=== PATIENT | male | born 1940 | race Caucasian/White ===

== ENCOUNTER 2018-05-31 17:11 | Emergency (ER) | payer MEDICARE, OTHER ==
[~2018-05-31] VITALS: Ht 177.8 cm; Wt 104.3 kg
[~2018-05-31 17:11] MED LIST: AMIO200T4 PO; AMLO5TAB4 PO; ASPI-482 PO; ATOR40TA59 PO; CARV12.5 PO; FERR325T14 PO; FURO-68 PO; FURO40TA4 PO; HYDR-2762 PO; HYDR-971 PO; Hydrocodone/Acetaminophen PO; INSU100I13 SQ; INSU100I17 SQ; INSU100I27 SQ; LEVO50TA5 PO; LISI10TA PO; LISI10TA2 PO; LOPE2TAB27 PO; METO5TAB4 PO; ONDA4TAB7 PO; POTA10TA12 PO; SERT100T8 PO; SIMV10TA3 PO; TAMS0.4C2 PO; WARF-31 PO; WARF7.5T45 PO
[2018-05-31 17:54] LABS: BASO # 0.1 x10^3/uL (0.0-0.2); BASO % 1 % (0-3); EOS # 0.2 x10^3/uL (0.0-0.7); EOS % 2 % (0-3); HEMATOCRIT 27.2 % (39.0-53.0); HEMOGLOBIN 9.2 g/dL (13.0-17.5); LYMPH # 0.9 x10^3/uL (1.0-4.8); LYMPH % 8 % (24-48); MEAN CORPUSCULAR HEMOGLOBIN 32 pg (25-35); MEAN CORPUSCULAR HGB CONC 34 g/dL (31-37); MEAN CORPUSCULAR VOLUME 94 fL (79-100); MONO % 9 % (0-9); NEUT # 9.1 x10^3uL (1.8-7.7); NEUT % 81 % (31-73); PLATELET COUNT 140 x10^3/uL (140-400); RED BLOOD COUNT 2.89 x10^6/uL (4.30-5.70); WHITE BLOOD COUNT 11.3 x10^3/uL (4.0-11.0)
--- NOTE | 2018-05-31 17:54 | PHYS DOC ---
Past Medical History Past Medical History: Cancer, Diabetes-Type II, Hypertension Additional Past Medical Histor: SKIN CANCER Past Surgical History: Coronary Bypass Surgery, Pacemaker Alcohol Use: Occasionally Drug Use: None Adult General Chief Complaint Chief Complaint: POST-OP PROBLEM HPI HPI Patient is a 77 year old male with history of hypertension, diabetes, CAD, on Coumadin for Afib, who presents today complaining of gum bleeding. Patient states he had 3 teeth extracted yesterday by a dentist, he states he was given Coumadin last night, he states he has been bleeding since yesterday evening. He resides in a long-term. PCP Dr. Talley Review of Systems Review of Systems Constitutional: Denies fever or chills [] Eyes: Denies change in visual acuity, redness, or eye pain [] HENT: Reports gum bleeding. Denies nasal congestion or sore throat [] Respiratory: Denies cough or shortness of breath [] Cardiovascular: No additional information not addressed in HPI [] GI: Denies abdominal pain, nausea, vomiting, bloody stools or diarrhea [] : Denies dysuria or hematuria [] Musculoskeletal: Denies back pain or joint pain [] Integument: Denies rash or skin lesions [] Neurologic: Denies headache, focal weakness or sensory changes [] All other systems were reviewed and found to be within normal limits, except as documented in this note. Current Medications Current Medications Current Medications Medications (Trade) Dose Ordered Sig/Adithya Start Time Stop Time Status Last Admin Dose Admin Gelatin (Gelfoam Size 12-7mm) 1 each 1X ONCE 05/31/18 19:30 05/31/18 19:31 DC 05/31/18 19:30 1 EACH Gelatin (Gelfoam Size 100) 1 each 1X ONCE 05/31/18 20:30 05/31/18 20:31 DC 05/31/18 20:41 1 EACH Tranexamic Acid (Cyklokapron) 1,000 mg 1X ONCE 05/31/18 18:00 05/31/18 18:01 DC 05/31/18 17:58 1,000 MG Allergies Allergies Allergies Coded Allergies Type Severity Reaction Last Updated Verified bumetanide Allergy Intermediate 05/31/18 Yes cephalexin Allergy Intermediate 06/19/15 Yes metformin Allergy Intermediate 05/31/18 Yes Physical Exam Physical Exam Constitutional: Well developed, well nourished, no acute distress, non-toxic appearance. [] HENT: Normocephalic, atraumatic, bilateral external ears normal, oropharynx moist, no oral exudates, nose normal. Tooth #8 is missing and bleeding, approximately tooth #22 and 23 are missing, the gum is bleeding around this area. Eyes: PERRLA, EOMI, conjunctiva normal, no discharge. [] Neck: Normal range of motion, no tenderness, supple, no stridor. [] Cardiovascular:Paced rhythm, no murmur [] Lungs & Thorax: Bilateral breath sounds clear to auscultation [] Abdomen: Bowel sounds normal, soft, no tenderness, no masses, no pulsatile masses. [] Skin: Warm, dry, no erythema, no rash. [] Back: No tenderness, no CVA tenderness. [] Extremities: No tenderness, no cyanosis, no clubbing, ROM intact, no edema. [] Neurologic: Alert and oriented X 3, normal motor function, normal sensory function, no focal deficits noted. [] Psychologic: Affect normal, judgement normal, mood normal. [] Current Patient Data Vital Signs Vital Signs Date Time Temp Pulse Resp B/P (MAP) Pulse Ox O2 Delivery O2 Flow Rate FiO2 05/31/18 21:02 77 16 134/63 (86) 100 05/31/18 17:11 99.0 Room Air 99.0 Lab Values Laboratory Tests Test 05/31/18 17:43 White Blood Count 11.3 x10^3/uL (4.0-11.0) H Red Blood Count 2.89 x10^6/uL (4.30-5.70) L Hemoglobin 9.2 g/dL (13.0-17.5) L Hematocrit 27.2 % (39.0-53.0) L Mean Corpuscular Volume 94 fL (79-100) Mean Corpuscular Hemoglobin 32 pg (25-35) Mean Corpuscular Hemoglobin Concent 34 g/dL (31-37) Red Cell Distribution Width 14.0 % (11.5-14.5) Platelet Count 140 x10^3/uL (140-400) Neutrophils (%) (Auto) 81 % (31-73) H Lymphocytes (%) (Auto) 8 % (24-48) L Monocytes (%) (Auto) 9 % (0-9) Eosinophils (%) (Auto) 2 % (0-3) Basophils (%) (Auto) 1 % (0-3) Neutrophils # (Auto) 9.1 x10^3uL (1.8-7.7) H Lymphocytes # (Auto) 0.9 x10^3/uL (1.0-4.8) L Monocytes # (Auto) 1.0 x10^3/uL (0.0-1.1) Eosinophils # (Auto) 0.2 x10^3/uL (0.0-0.7) Basophils # (Auto) 0.1 x10^3/uL (0.0-0.2) Prothrombin Time 26.1 SEC (11.7-14.0) H Prothrombin Time INR 2.5 (0.8-1.1) H PTT 47 SEC (24-38) H Laboratory Tests 05/31/18 17:43 EKG EKG [] Radiology/Procedures Radiology/Procedures [] Course & Med Decision Making Course & Med Decision Making Pertinent Labs and Imaging studies reviewed. (See chart for details) This is a 77-year-old male patient presenting to the ED today with gum bleeding after teeth extraction. He had his teeth extracted yesterday one on the left upper gum and 2 on the left lower gum, both actively bleeding. He is on Coumadin and was given a dose yesterday evening. Tranexamic acid was applied on a gauze and placed to the source of on the gums. This did not stop the bleeding well because it was difficult to align the bleeding area with the gauze. Gel foam was bend to in shape with the bleeding source and pressure applied. Bleeding stopped after 30 minutes. INR 2.5, hemoglobin 9.2 hematocrit 27.2, this is around patient's baseline. Vitals on arrival to the ED temperature 99.0 heart rate 73 respiration 18 on room air blood pressure 112/54 O2 sats were 91% on arrival to the ED, after being in the ED for a few minutes O2 sats went up to 100% on room air. Patient will be discharged to the long-term. Recommended stopping Coumadin for 2 days. Dragon Disclaimer Dragon Disclaimer This electronic medical record was generated, in whole or in part, using a voice recognition dictation system. Departure Departure Impression: Primary Impression: Surgical wound hemorrhage after dental procedure Disposition: 03 TRANSFER SNF Condition: STABLE Referrals: KAREN TALLEY MD (PCP) Follow-up with your dentist as soon as you can Patient Instructions: Dental Extraction, Care After Additional Instructions: You were seen for bleeding gums after tooth extraction. We highly recommend you don't take Coumadin for 2 days. Follow-up with your dentist in the course of this week. Come back to the ED at any point symptoms worsen. CRISTELA ELKINS APRN May 31, 2018 17:54
[2018-05-31] MEDS ORDERED: TRANEXAMIC ACID 1,000 MG/10 ML VIAL. TOP ONE (18:00)
[2018-05-31 18:03] LABS: PROTHROMBIN TIME PATIENT 26.1 SEC (11.7-14.0)
[2018-05-31] MEDS ORDERED: GELATIN SPONGE SIZE 12-7MM SPONGE. TP ONE (19:30)
[2018-05-31] MEDS ORDERED: GELATIN SPONGE SIZE 100. TP ONE (20:30)
[2018-05-31 23:07] VITALS: BP 126/60
== END 2018-05-31 23:34 ==
LOC: ER 17:11
DX: K91.840 Postprocedural hemorrhage of a digestive system organ or structure following a digestive system procedure (principal); E11.9 Type 2 diabetes mellitus without complications; I10 Essential (primary) hypertension; Z95.1 Presence of aortocoronary bypass graft; Z95.0 Presence of cardiac pacemaker; Z88.1 Allergy status to other antibiotic agents; Z88.8 Allergy status to other drugs, medicaments and biological substances
CPT/HCPCS: 36415; 85025; 85610; 85730; 99285

== ENCOUNTER 2019-01-20 05:24 | Emergency (ER) | payer MEDICARE, OTHER ==
[~2019-01-20] VITALS: Ht 152.4 cm; Wt 100.7 kg
[~2019-01-20 05:24] MED LIST changes: -HYDR-2762 PO; +HYDR-2765 PO; +HYDR-3164 PO; -HYDR-971 PO
[2019-01-20 05:58] LABS: BASO # 0.1 x10^3/uL (0.0-0.2); BASO % 1 % (0-3); EOS # 0.3 x10^3/uL (0.0-0.7); EOS % 3 % (0-3); HEMOGLOBIN 8.5 g/dL (13.0-17.5); LYMPH % 11 % (24-48); MEAN CORPUSCULAR HEMOGLOBIN 30 pg (25-35); MEAN CORPUSCULAR HGB CONC 34 g/dL (31-37); MEAN CORPUSCULAR VOLUME 89 fL (79-100); MONO # 0.7 x10^3/uL (0.0-1.1); MONO % 9 % (0-9); NEUT # 6.5 x10^3uL (1.8-7.7); NEUT % 76 % (31-73); PLATELET COUNT 145 x10^3/uL (140-400); RED CELL DISTRIBUTION WIDTH 15.3 % (11.5-14.5); WHITE BLOOD COUNT 8.5 x10^3/uL (4.0-11.0)
[2019-01-20] MEDS ORDERED: SILVER NITRATE STICK TP ONE (06:02)
[2019-01-20 06:38] LABS: PROTHROMBIN TIME PATIENT 30.6 SEC (11.7-14.0)
--- NOTE | 2019-01-20 07:00 | PHYS DOC ---
Past Medical History Past Medical History: A-Fib, Cancer, Diabetes-Type II, Hypertension, Prostatitis Additional Past Medical Histor: SKIN CANCER Past Surgical History: Coronary Bypass Surgery, Pacemaker, Other Additional Past Surgical Histo: TOOTH EXTRACTION Alcohol Use: Occasionally Drug Use: None Adult General Chief Complaint Chief Complaint: NOSEBLEED HPI HPI Patient is a 78 year old male jail patient with history of A. fib presents with persistent nosebleed of left nares starting 3 hours prior to ED arrival and resolving just prior to EMS arrival. Patient denies dizziness lightheadedness, or trauma to region. Patient is unsure of most recent INR value but is compliant with treatment. Denies current nosebleeds. No other acute symptoms or complaints [] Review of Systems Review of Systems Review symptoms as per history of present illness. All other systems were reviewed and found to be within normal limits, except as documented in this note. Current Medications Current Medications Current Medications Medications (Trade) Dose Ordered Sig/Adithya Start Time Stop Time Status Last Admin Dose Admin Silver Nitrate/ Potassium Nitrate 1 each STK-MED ONCE 01/20/19 06:02 01/20/19 06:03 DC Allergies Allergies Allergies Coded Allergies Type Severity Reaction Last Updated Verified bumetanide Allergy Intermediate 05/31/18 Yes cephalexin Allergy Intermediate 06/19/15 Yes metformin Allergy Intermediate 05/31/18 Yes Physical Exam Physical Exam Constitutional: Well developed, well nourished, no acute distress, non-toxic jean-pierre earance. [] HENT: Normocephalic, atraumatic, bilateral external ears normal, oropharynx moist, no oral exudates, nose, dried blood in Left nares, no active bleeding, abrasion over middle ant nasal septum. [] Eyes: PERRLA, EOMI, conjunctiva normal, no discharge. [] Neck: Normal range of motion, no tenderness, supple, no stridor. [] Cardiovascular:Heart rate regular rhythm, no murmur [] Lungs & Thorax: Bilateral breath sounds clear to auscultation [] Neurologic: Alert and oriented X 1, normal motor function, normal sensory function, no focal deficits noted. [] Psychologic: Affect normal, judgement normal, mood normal. [] Current Patient Data Vital Signs Vital Signs Date Time Temp Pulse Resp B/P (MAP) Pulse Ox O2 Delivery O2 Flow Rate FiO2 01/20/19 05:30 98.1 78 18 145/63 (90) 93 Room Air 98.1 Lab Values Laboratory Tests Test 01/20/19 05:50 01/20/19 06:25 White Blood Count 8.5 x10^3/uL (4.0-11.0) Red Blood Count 2.80 x10^6/uL (4.30-5.70) L Hemoglobin 8.5 g/dL (13.0-17.5) L Hematocrit 25.0 % (39.0-53.0) L Mean Corpuscular Volume 89 fL (79-100) Mean Corpuscular Hemoglobin 30 pg (25-35) Mean Corpuscular Hemoglobin Concent 34 g/dL (31-37) Red Cell Distribution Width 15.3 % (11.5-14.5) H Platelet Count 145 x10^3/uL (140-400) Neutrophils (%) (Auto) 76 % (31-73) H Lymphocytes (%) (Auto) 11 % (24-48) L Monocytes (%) (Auto) 9 % (0-9) Eosinophils (%) (Auto) 3 % (0-3) Basophils (%) (Auto) 1 % (0-3) Neutrophils # (Auto) 6.5 x10^3uL (1.8-7.7) Lymphocytes # (Auto) 1.0 x10^3/uL (1.0-4.8) Monocytes # (Auto) 0.7 x10^3/uL (0.0-1.1) Eosinophils # (Auto) 0.3 x10^3/uL (0.0-0.7) Basophils # (Auto) 0.1 x10^3/uL (0.0-0.2) Prothrombin Time 30.6 SEC (11.7-14.0) H Prothrombin Time INR 2.9 (0.8-1.1) H Laboratory Tests 01/20/19 05:50 EKG EKG [] Radiology/Procedures Radiology/Procedures [] Course & Med Decision Making Course & Med Decision Making Pertinent Labs and Imaging studies reviewed. (See chart for details) [Basic labs reviewed, abrasions cauterized with Silver Nitrate to decrease risk of rebleed.] Dragon Disclaimer Dragon Disclaimer This electronic medical record was generated, in whole or in part, using a voice recognition dictation system. Departure Departure Impression: Primary Impression: Nosebleed Disposition: 01 HOME, SELF-CARE Condition: GOOD Referrals: KAREN TALLEY MD (PCP) Patient Instructions: Nosebleed, [id number] Additional Instructions: Please use Afrin nasal nostril twice daily for the next 5 days. If nosebleed recurs, hold pressure for 20 minutes and return to the ED if bleeding continues after releasing pressure. Scripts Oxymetazoline Hcl (AFRIN) 30 Ml Lindsay 30 ML NS BID for nosebleed for 5 Days, #1 SPRAY Prov: REMY HENDRICKS DO 01/20/19 REMY HENDRICKS DO January 20, 2019 07:00
[2019-01-20] MEDS ORDERED: OXYM30SP NS (07:06)
[2019-01-20 08:30] VITALS: BP 146/65
== END 2019-01-20 08:45 | disposition home or self-care (01) ==
LOC: ER 05:24
DX: R04.0 Epistaxis (principal); I10 Essential (primary) hypertension; E11.9 Type 2 diabetes mellitus without complications; I48.91 Unspecified atrial fibrillation; Z95.1 Presence of aortocoronary bypass graft; Z95.0 Presence of cardiac pacemaker; Z88.1 Allergy status to other antibiotic agents; Z88.8 Allergy status to other drugs, medicaments and biological substances
CPT/HCPCS: 30901; 36415; 85025; 85610; 99284-25

== ENCOUNTER 2019-05-15 22:49 | Inpatient (IN) | payer MEDICARE, MEDICAID ==
[~2019-05-15] VITALS: Ht 154.9 cm; Wt 89.8 kg
[2019-05-15] MEDS: IV NORMAL SALINE 1000ML BAG 1,000 ML IV ONE (00:18)
[~2019-05-15 22:49] MED LIST changes: +OXYM30SP NS
[2019-05-15] MEDS ORDERED: VANCOMYCIN PER PHARMACY MC PRN (23:00)
[2019-05-15 23:30] LABS: BASO # 0.1 x10^3/uL (0.0-0.2); BASO % 1 % (0-3); EOS % 0 % (0-3); HEMATOCRIT 25.2 % (39.0-53.0); HEMOGLOBIN 7.9 g/dL (13.0-17.5); LYMPH # 0.3 x10^3/uL (1.0-4.8); LYMPH % 1 % (24-48); MEAN CORPUSCULAR HEMOGLOBIN 28 pg (25-35); MEAN CORPUSCULAR HGB CONC 32 g/dL (31-37); MEAN CORPUSCULAR VOLUME 87 fL (79-100); MONO # 1.1 x10^3/uL (0.0-1.1); MONO % 5 % (0-9); NEUT # 22.7 x10^3/uL (1.8-7.7); NEUT % 94 % (31-73); PLATELET COUNT 196 x10^3/uL (140-400); RED BLOOD COUNT 2.88 x10^6/uL (4.30-5.70); RED CELL DISTRIBUTION WIDTH 22.2 % (11.5-14.5); WHITE BLOOD COUNT 24.3 x10^3/uL (4.0-11.0)
[2019-05-15] MEDS ORDERED: IV NORMAL SALINE 1000ML BAG 1,000 ML IV ONE ×2 (23:30)
[2019-05-15 23:40] LABS: ANION GAP 5 (6-14); BLOOD UREA NITROGEN 81 mg/dL (8-26); BUN/CREATININE RATIO 23 (6-20); CALCIUM 8.8 mg/dL (8.5-10.1); CARBON DIOXIDE 32 mmol/L (21-32); CHLORIDE 96 mmol/L (98-107); CREATININE 3.6 mg/dL (0.7-1.3); GFR 16.5; GLUCOSE 134 mg/dL (70-99); POTASSIUM 5.1 mmol/L (3.5-5.1); SODIUM 133 mmol/L (136-145)
[2019-05-15 23:41] LABS: PROTHROMBIN TIME PATIENT 27.4 SEC (11.7-14.0)
--- NOTE | 2019-05-15 23:48 | RAD ---
AP chest x-ray HISTORY: Sepsis and cough. COMPARISON: Chest x-ray March 24, 2016. FINDINGS: Implanted cardiac device again demonstrated. Tiny megaly stable. Prior coronary bypass again demonstrated. No pneumothorax. Pulmonary vascular congestion and mild pulmonary interstitial edema has developed. Opacity at the left lower lobe screening the diaphragm, a mild/moderate left pleural effusion cannot be excluded along the diaphragm. IMPRESSION: Congestive heart failure with cardiomegaly, pulmonary vascular congestion and pulmonary interstitial edema. Dense opacity left lower lobe could represent asymmetric alveolar edema or pneumonia. A left pleural effusion is not excluded. Electronically signed by: Caesar Peres MD (05/15/2019 11:45 PM) [id number]
[2019-05-15 23:51] LABS: % BANDS 6 % (0-9); % EOS 2 % (0-5); % LYMPHS 1 % (24-48); % MONOS 2 % (0-10); % SEGS 89 % (35-66); PLT ESTIMATE ADEQUATE (ADEQUATE)
[2019-05-15 23:53] LABS: ANISOCYTOSIS MOD; HYPOCHROMIA SLIGHT
[2019-05-15 23:54] LABS: OVALOCYTES FEW; SCHISTOCYTES OCC; TOXIC GRANULATION SLIGHT
[2019-05-15 23:55] LABS: ALBUMIN 2.5 g/dL (3.4-5.0); ALBUMIN/GLOBULIN RATIO 0.6 (1.0-1.7); ALK PHOS 113 U/L (46-116); AST (SGOT) 14 U/L (15-37); DIRECT BILIRUBIN 0.4 mg/dL (0.0-0.2); TOTAL BILIRUBIN 0.8 mg/dL (0.2-1.0); TOTAL PROTEIN 6.7 g/dL (6.4-8.2)
[2019-05-16] VITALS (31 sets, daily range): BP systolic 66–115; BP diastolic 36–57
[2019-05-16] MEDS ORDERED: VANCOMYCIN 2 GM in IV NORMAL SALINE 500ML BAG 500 ML IV ONE ×2
[2019-05-16 00:10] LABS: ALT (SGPT) < 6 U/L (16-63)
[2019-05-16] MEDS: IV NORMAL SALINE 1000ML BAG 1,000 ML IV ONE (00:17)
--- NOTE | 2019-05-16 00:21 | RAD ---
CT head without contrast PQRS statement: CT scans at this facility use dose reduction including either automated exposure control, iterative reconstructions, and /or weight based radiation dosing via mA and kV modification when appropriate to reduce radiation dose to as low as reasonably achievable. HISTORY: Altered mental status. TECHNIQUE: Noncontrast CT imaging skull base to vertex was acquired. FINDINGS: 2 cm linear age-indeterminate hypodense ischemic infarct posterior right cerebellum. Generalized mild brain atrophy. Cerebral periventricular white matter hypoattenuation presumably representing changes of chronic microvascular ischemic disease. No intracranial hemorrhage, mass or hydrocephalus. Fluid within the left maxillary sinus. Mastoids, orbits and bones are unremarkable. IMPRESSION: 1. 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 2. Left maxillary sinus fluid likely sinusitis. Electronically signed by: Caesar Peres MD (05/16/2019 12:19 AM) [id number]
--- NOTE | 2019-05-16 00:36 | RAD ---
AP chest x-ray COMPARISON: Chest x-ray May 15, 2019. HISTORY: Central line placement. FINDINGS: Right jugular central venous catheter has been placed the tip is obscured by the density of overlying cardiac pacemaker electrodes although appears to extend to the atrial caval junction or distal SVC, it is not apparent in the right atrium. Cardiomegaly stable. Coronary bypass again demonstrated. Pulmonary vascular congestion and interstitial edema is stable. Left lower lobe consolidated infiltrate is stable, and mild left pleural effusion is not excluded. No pneumothorax. IMPRESSION: Cardiomegaly, pulmonary edema and left lower lobe infiltrate is stable. Right jugular central venous catheter has been placed as described above. Electronically signed by: Caesar Peres MD (05/16/2019 12:33 AM) [id number]
--- NOTE | 2019-05-16 00:42 | PHYS DOC ---
Past Medical History Past Medical History: CAD, CHF, Diabetes-Type II, High Cholesterol, Hypertension, Hypothyroid Additional Past Medical Histor: SKIN CANCER Past Surgical History: Coronary Bypass Surgery, Pacemaker, Other Additional Past Surgical Histo: TOOTH EXTRACTION Alcohol Use: None Drug Use: None Adult General Chief Complaint Chief Complaint: ALTERED MENTAL STATUS HPI HPI 78-year-old male presents to emergency department via EMS from nursing facility. Patient is generally history of hypertension, diabetes, bilateral [id number] amputations. Apparently patient has had altered mental status progressive throughout the day and worse this evening and therefore presented to the ER for further evaluation. Unable to obtain history from the patient given his mental status. Patient will arouse to painful stimuli however does not answer questions. Initial evaluation systolic pressure in the 70s. Review of Systems Review of Systems Unable to obtain patient's reviews of systems given his mental status and presentation. Current Medications Current Medications Current Medications Medications (Trade) Dose Ordered Sig/Adithya Start Time Stop Time Status Last Admin Dose Admin Levofloxacin/ Dextrose 150 ml @ 100 mls/hr 1X ONCE 05/15/19 23:30 05/16/19 00:59 DC 05/16/19 00:17 100 MLS/HR Sodium Chloride 1,000 ml @ 1,000 mls/hr 1X ONCE 05/15/19 23:30 05/16/19 00:29 DC 05/16/19 00:17 1,000 MLS/HR Vancomycin HCl (Vanco Per Pharmacy) 1 each PRN DAILY PRN 05/15/19 23:00 Vancomycin HCl 2 gm/Sodium Chloride 500 ml @ 250 mls/hr 1X ONCE 05/16/19 00:00 05/16/19 01:59 05/16/19 00:15 250 MLS/HR Allergies Allergies Allergies Coded Allergies Type Severity Reaction Last Updated Verified bumetanide Allergy Intermediate 05/31/18 Yes cephalexin Allergy Intermediate 06/19/15 Yes metformin Allergy Intermediate 05/31/18 Yes Physical Exam Physical Exam Constitutional: Ill-appearing HENT: Normocephalic, atraumatic, mucous membranes dry Eyes: PERRLA, EOMI, conjunctiva normal, no discharge. [] Cardiovascular: Paced rhythm Lungs & Thorax: Decreased breath sounds left greater than right, crackles appreciated Abdomen: Bowel sounds normal, soft, no tenderness, no masses, no pulsatile masses. [] Skin: Warm, dry, no erythema, no rash. [] Extremities: No edema, bilateral below the knee petitions Neurologic: Altered mental status, patient does not follow commands Current Patient Data Vital Signs Vital Signs Date Time Temp Pulse Resp B/P (MAP) Pulse Ox O2 Delivery O2 Flow Rate FiO2 05/16/19 00:41 68 18 100 05/15/19 23:10 77/36 (50) Nasal Cannula 2.0 Lab Values Laboratory Tests Test 05/15/19 23:10 05/16/19 00:32 05/16/19 00:41 05/16/19 00:48 White Blood Count 24.3 x10^3/uL (4.0-11.0) H Red Blood Count 2.88 x10^6/uL (4.30-5.70) L Hemoglobin 7.9 g/dL (13.0-17.5) L Hematocrit 25.2 % (39.0-53.0) L Mean Corpuscular Volume 87 fL (79-100) Mean Corpuscular Hemoglobin 28 pg (25-35) Mean Corpuscular Hemoglobin Concent 32 g/dL (31-37) Red Cell Distribution Width 22.2 % (11.5-14.5) H Platelet Count 196 x10^3/uL (140-400) Neutrophils (%) (Auto) 94 % (31-73) H Lymphocytes (%) (Auto) 1 % (24-48) L Monocytes (%) (Auto) 5 % (0-9) Eosinophils (%) (Auto) 0 % (0-3) Basophils (%) (Auto) 1 % (0-3) Neutrophils # (Auto) 22.7 x10^3/uL (1.8-7.7) H Lymphocytes # (Auto) 0.3 x10^3/uL (1.0-4.8) L Monocytes # (Auto) 1.1 x10^3/uL (0.0-1.1) Eosinophils # (Auto) 0.0 x10^3/uL (0.0-0.7) Basophils # (Auto) 0.1 x10^3/uL (0.0-0.2) Segmented Neutrophils % 89 % (35-66) H Band Neutrophils % 6 % (0-9) Lymphocytes % 1 % (24-48) L Monocytes % 2 % (0-10) Eosinophils % 2 % (0-5) Toxic Granulation Slight Platelet Estimate Adequate (ADEQUATE) Hypochromasia Slight Anisocytosis Mod Ovalocytes Few Schistocytes Occ Prothrombin Time 27.4 SEC (11.7-14.0) H Prothrombin Time INR 2.6 (0.8-1.1) H Activated Partial Thromboplast Time 44 SEC (24-38) H Sodium Level 133 mmol/L (136-145) L Potassium Level 5.1 mmol/L (3.5-5.1) Chloride Level 96 mmol/L (98-107) L Carbon Dioxide Level 32 mmol/L (21-32) Anion Gap 5 (6-14) L Blood Urea Nitrogen 81 mg/dL (8-26) H Creatinine 3.6 mg/dL (0.7-1.3) H Estimated GFR (Cockcroft-Gault) 16.5 BUN/Creatinine Ratio 23 (6-20) H Glucose Level 134 mg/dL (70-99) H Lactic Acid Level 2.3 mmol/L (0.4-2.0) H Calcium Level 8.8 mg/dL (8.5-10.1) Total Bilirubin 0.8 mg/dL (0.2-1.0) Direct Bilirubin 0.4 mg/dL (0.0-0.2) H Aspartate Amino Transferase (AST) 14 U/L (15-37) L Alanine Aminotransferase (ALT) < 6 U/L (16-63) L Alkaline Phosphatase 113 U/L (46-116) Total Protein 6.7 g/dL (6.4-8.2) Albumin 2.5 g/dL (3.4-5.0) L Albumin/Globulin Ratio 0.6 (1.0-1.7) L Procalcitonin 0.59 ng/mL (0.00-0.10) H Ammonia 15 mcmol/L (11-34) Urine Collection Type Unknown Urine Color Yellow Urine Clarity Cloudy Urine pH 6.5 Urine Specific [place] 1.010 Urine Protein Negative mg/dL (NEG-TRACE) Urine Glucose (UA) Negative mg/dL (NEG) Urine Ketones (Stick) Negative mg/dL (NEG) Urine Blood Negative (NEG) Urine Nitrite Negative (NEG) Urine Bilirubin Negative (NEG) Urine Urobilinogen Dipstick 0.2 mg/dL (0.2 mg/dL) Urine Leukocyte Esterase Negative (NEG) Urine RBC 0 /HPF (0-2) Urine WBC 0 /HPF (0-4) Urine Squamous Epithelial Cells Few /LPF Urine Bacteria 0 /HPF (0-FEW) Urine Hyaline Casts Moderate /HPF Urine Mucus Mod /LPF O2 Saturation 94 % (92-99) Arterial Blood pH 7.41 (7.35-7.45) Arterial Blood pCO2 at Patient Temp 45 mmHg (35-46) Arterial Blood pO2 at Patient Temp 79 mmHg (65-108) Arterial Blood HCO3 28 mmol/L (21-28) Arterial Blood Base Excess 3 mmol/L (-3-3) Oxyhemoglobin 93.1 % Methemoglobin 0.4 % (0.0-1.9) Carbon Monoxide, Quantitative 0.9 % (0.0-1.9) FiO2 32 Laboratory Tests 05/15/19 23:10 Laboratory Tests 05/15/19 23:10 EKG EKG EKG reveals paced rhythm, heart rate 70, right bundle branch block[] Interpretation Time: Interpretation time 00 23 Radiology/Procedures Radiology/Procedures [facility] [address] [place] [address] IMAGING REPORT Signed PATIENT: CORAZON BLANCAS ACCOUNT: [id number] : 1940 LOCATION: ER AGE: 78 SEX: M EXAM STATUS: REG ER ORD. PHYSICIAN: BLADIMIR MATTHEW MD REASON: Sepsis, cough PROCEDURE: PORTABLE CHEST 1V AP chest x-ray HISTORY: Sepsis and cough. COMPARISON: Chest x-ray March 24, 2016. FINDINGS: Implanted cardiac device again demonstrated. Tiny megaly stable. Prior coronary bypass again demonstrated. No pneumothorax. Pulmonary vascular congestion and mild pulmonary interstitial edema has developed. Opacity at the left lower lobe screening the diaphragm, a mild/moderate left pleural effusion cannot be excluded along the diaphragm. IMPRESSION: Congestive heart failure with cardiomegaly, pulmonary vascular congestion and pulmonary interstitial edema. Dense opacity left lower lobe could represent asymmetric alveolar edema or pneumonia. A left pleural effusion is not excluded. Electronically signed by: Judd Peres MD (05/15/2019 11:45 PM) [facility] DICTATED and SIGNED BY: JUDD PERES MD DATE: 05/15/19 2345 [facility] [address] [facility] [place] [address] IMAGING REPORT Signed PATIENT: CORAZON BLANCAS ACCOUNT: [id number] : 1940 LOCATION: ER AGE: 78 SEX: M EXAM STATUS: REG ER ORD. PHYSICIAN: BLADIMIR MATTHEW MD REASON: central line placement PROCEDURE: CHEST AP ONLY AP chest x-ray COMPARISON: Chest x-ray May 15, 2019. HISTORY: Central line placement. FINDINGS: Right jugular central venous catheter has been placed the tip is obscured by the density of overlying cardiac pacemaker electrodes although appears to extend to the atrial caval junction or distal SVC, it is not apparent in the right atrium. Cardiomegaly stable. Coronary bypass again demonstrated. Pulmonary vascular congestion and interstitial edema is stable. Left lower lobe consolidated infiltrate is stable, and mild left pleural effusion is not excluded. No pneumothorax. IMPRESSION: Cardiomegaly, pulmonary edema and left lower lobe infiltrate is stable. Right jugular central venous catheter has been placed as described above. Electronically signed by: Judd Peres MD (05/16/2019 12:33 AM) [facility] DICTATED and SIGNED BY: JUDD PERES MD DATE: 05/16/19 0033 [facility] [address] [facility] [place] [address] IMAGING REPORT Signed PATIENT: CORAZON BLANCAS ACCOUNT: [id number] : 1940 LOCATION: ER AGE: 78 SEX: M EXAM STATUS: REG ER ORD. PHYSICIAN: BLADIMIR MATTHEW MD REASON: altered mental status PROCEDURE: CT HEAD WO CONTRAST CT head without contrast PQRS statement: CT scans at this facility use dose reduction including either automated exposure control, iterative reconstructions, and /or weight based radiation dosing via mA and kV modification when appropriate to reduce radiation dose to as low as reasonably achievable. HISTORY: Altered mental status. TECHNIQUE: Noncontrast CT imaging skull base to vertex was acquired. FINDINGS: 2 cm linear age-indeterminate hypodense ischemic infarct posterior right cerebellum. Generalized mild brain atrophy. Cerebral periventricular white matter hypoattenuation presumably representing changes of chronic microvascular ischemic disease. No intracranial hemorrhage, mass or hydrocephalus. Fluid within the left maxillary sinus. Mastoids, orbits and bones are unremarkable. IMPRESSION: 1. 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 2. Left maxillary sinus fluid likely sinusitis. Electronically signed by: Judd Peres MD (05/16/2019 12:19 AM) [facility] DICTATED and SIGNED BY: JUDD PERES MD DATE: 05/16/19 0019 Course & Med Decision Making Course & Med Decision Making Pertinent Labs and Imaging studies reviewed. (See chart for details) []78-year-old male presents to emergency department via EMS from nursing facility. Patient is generally history of hypertension, diabetes, bilateral hagdd-aie-qzel amputations. Apparently patient has had altered mental status progressive throughout the day and worse this evening and therefore presented to the ER for further evaluation. Unable to obtain history from the patient given his mental status. Patient will arouse to painful stimuli however does not answer questions. Initial evaluation systolic pressure in the 70s. Dragon Disclaimer Dragon Disclaimer This electronic medical record was generated, in whole or in part, using a voice recognition dictation system. Critical Care Time Critical care time was 40 minutes exclusive of procedures. Date and Time of Reassessment Date: May 16, 2019 Time: 01:19 Fluid Challenge Is the fluid challenge complet: Yes IBW Target Volume Used: No BMI > 30: Yes Vital Signs Vital Signs: Vital Signs Date Time Temp Pulse Resp B/P (MAP) Pulse Ox O2 Delivery O2 Flow Rate FiO2 05/16/19 00:41 68 18 100 05/15/19 23:10 77/36 (50) Nasal Cannula 2.0 Temperature Source: Oral Respirations Respiratory Pattern: Normal Cardiovascular Pulse Rhythm: Irregular Heart: No murmurs noted Lung Sounds Breath Sounds: Diminished Capillary Refil Capillary Refill: Lt Hand < 3 seconds Peripheral Pulse Pulse Location: Monitor Pulse Strength: Normal (2+) Pulse Assessment Method: Monitor Integumentary Skin: Dry, Cool Skin Moisture: Dry Skin Turgor: Decreased Skin Color: dry CENTRAL LINE INSERTION: Location: Right IJ Date of Insertion: 05/16/2019 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 Physician 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 the P: Yes If suspected infection: Yes Central Line Indications: Monitor CVP Maximal sterile barriers used: Mask, Sterile gown, Sterile gloves, Large sterile drape, Cap Skin Preperation: (Check all: Chlorhexidine gluconate Was skin prep dry at time of s: Yes Insertion Site: Jugular Antimicrobial catheter used?: No Central Line catheter type: Non-tunneled Departure Departure Impression: Primary Impression: Severe sepsis Additional Impressions: HCAP (healthcare-associated pneumonia) Pulmonary edema Chronic kidney disease, stage 4 (severe) CVA (cerebral vascular accident) Disposition: ADMITTED INPATIENT Admitting Physician: GIRMA Condition: CRITICAL Referrals: FATOUMATA PAREDES MD (PCP) Problem Qualifiers Additional Impressions: Pulmonary edema Chronicity: acute Qualified Codes: J81.0 - Acute pulmonary edema CVA (cerebral vascular accident) CVA mechanism: unspecified Qualified Codes: I63.9 - Cerebral infarction, unspecified BLADIMIR MATTHEW MD May 16, 2019 00:42
[2019-05-16 00:45] LABS: BASE EXCESS COOX 3 mmol/L (-3-3); HCO3 COOX 28 mmol/L (21-28); METHEMOGLOBIN 0.4 % (0.0-1.9); OXYHEMOGLOBIN 93.1 %; PCO2 COOX 45 mmHg (35-46); PO2 COOX 79 mmHg (65-108); SAT O2 COOX 94 % (92-99)
[2019-05-16 00:47] LABS: BILIRUBIN,URINE NEGATIVE (NEG); CLARITY,URINE CLOUDY; COLOR,URINE YELLOW; NITRITE,URINE NEGATIVE (NEG); PH,URINE 6.5; PROTEIN,URINE NEGATIVE (NEG-TRACE); UROBILINOGEN,URINE 0.2 mg/dL (0.2 mg/dL)
[2019-05-16 00:53] LABS: BACTERIA,URINE 0 /HPF (0-FEW); HYALINE CASTS, URINE MODERATE /HPF; RBC,URINE 0 /HPF (0-2); SQUAMOUS EPITHELIAL CELL,UR FEW /LPF; WBC,URINE 0 /HPF (0-4)
[2019-05-16] MEDS ORDERED: ONDANSETRON PF 4 MG/2 ML VIAL. IV PRN (01:45)
--- NOTE | 2019-05-16 02:12 | NUR ---
Pharmacy Vancomycin Dosing Note S:Consulted to monitor and dose vancomycin started 05/16/19. O:CORAZON BLANCAS is a 78 year old M with Sepsis . Height: 5 feet, 1 inches Weight: 90.577932 kg [place] Body Weight: 52.30 Adjusted Body Weight: 67.38 Dosing Weight: Actual Other Antibiotics: LEVOFLOXACIN 750 X1 IN ER LABS: Last BUN: 81 Last Creatinine: 3.6 Creatinine Clearance: 16 mL/min Last WBC: 24.3 Last Procalcitonin: 0.59 Tmax (past 24 hours): Microbiology: I/O: Drug Levels: Last level: on at Last dose given 05/16/19 at 0000 Vancomycin Dosing: Loading Dose: 2000 mg x1 Dosing Weight: Actual Target Trough: 15-20 A: Based on: WT AND CRCL P: 1. Begin Vancomycin 1250 mg IV q48h 2. Follow up Trough level on 05/19/19 at 2330 3. Pharmacy will continue to monitor, follow and adjust therapy as needed. SILKE SIMPSON RPH, 05/16/19211 Signed: 05/16/19 at 211 by SILKE SIMPSON RPH PHA
--- NOTE | 2019-05-16 03:50 | NUR ---
Patient admitted to room 106 from ED via cart and accompanied by ED RN. Per ED RN, patient was unarousble in ED--on admit patient is talking but is disoriented and only intermittently follows command; Patient is alert to self only and denies pain. Attempted to orient patient to ICU routine, room, nursing call light, activity (BR), diet (NPO), Numeric pain scale, need for Garcia catheter placed in ED, side rail policy, and POC--unable to determine patient's understanding/comprehension. Patient unable to answer any admission questions, all information obtained from ED notes or old records; see Admission Interventions and Admission Assessment. Patient is DNR per outside hospital DNR. Patient's BP dropped <90 with a MAP <65, Dr Heck paged. Dr Heck returned page, notified of admission, Vital Signs, +Sepsis screen, initial Lactic Acid 2.3 and repeat 1.3, fluids given in ED, lung sounds and UO. Orders received for 25% Albumin 100CC TRO 1HR, goal SBP>90 and MAP>65. Levophed PRN per protocol, and if SBP not improved after one hour, give 5% Albumin 250 CC TRO 2 hours. See orders, lab, assessment, and output.
[2019-05-16] MEDS ORDERED: NOREPINEPHRIN 8MG/250ML PREMIX 250 ML IV PRN (04:00)
[2019-05-16] MEDS ORDERED: ALBUMIN HUMAN 25% 100 ML IV ONE (04:30)
[2019-05-16] MEDS ORDERED: INFLUENZA VAX SCREEN BY RX. MC ONE (05:00)
[2019-05-16] MEDS ORDERED: ALBUMIN HUMAN 5% 250 ML IV ONE (05:30)
[2019-05-16] MEDS ORDERED: FLUT9.9S NS (06:03)
[2019-05-16] MEDS ORDERED: WARF2TAB PO (06:03)
[2019-05-16] MEDS ORDERED: ACET325T9 PO (06:03)
[2019-05-16] MEDS ORDERED: FERR240T2 PO (06:03)
[2019-05-16] MEDS ORDERED: BISA10SU4 RC (06:03)
[2019-05-16] MEDS ORDERED: CYAN-25 PO (06:03)
[2019-05-16] MEDS ORDERED: DULO30CA2 PO (06:03)
[2019-05-16] MEDS ORDERED: NA P133E2 RC (06:03)
[2019-05-16] MEDS ORDERED: BUSP5TAB PO (06:03)
[2019-05-16] MEDS ORDERED: CHOL500016 PO (06:03)
[2019-05-16] MEDS ORDERED: FEBU80TA2 PO (06:03)
[2019-05-16] MEDS ORDERED: DULO60CA6 PO (06:03)
[2019-05-16] MEDS ORDERED: GABA-585 PO (06:14)
[2019-05-16] MEDS ORDERED: INSU100C4 SQ (06:32)
[2019-05-16] MEDS ORDERED: PRAV20TA2 PO (06:32)
[2019-05-16] MEDS ORDERED: LACT1CAP2 PO (06:32)
[2019-05-16] MEDS ORDERED: POTA20TA82 PO (06:32)
[2019-05-16] MEDS ORDERED: POLY17PO29 PO (06:32)
[2019-05-16] MEDS ORDERED: METO5TAB4 PO (06:32)
[2019-05-16] MEDS ORDERED: LEVO125T5 PO (06:32)
[2019-05-16] MEDS ORDERED: METO2.5T PO (06:32)
[2019-05-16] MEDS ORDERED: NITR0.4T22 SL (06:32)
[2019-05-16] MEDS ORDERED: DEXT38GE2 PO (06:32)
[2019-05-16] MEDS ORDERED: MELA3TAB56 PO (06:32)
[2019-05-16] MEDS ORDERED: INSU100I13 SQ (06:32)
[2019-05-16] MEDS ORDERED: PANT40TA77 PO (06:32)
[2019-05-16] MEDS ORDERED: POTA20TA4 PO (06:32)
[2019-05-16] MEDS ORDERED: METO-239 PO (06:32)
[2019-05-16] MEDS ORDERED: TEMA15CA PO (06:40)
[2019-05-16] MEDS ORDERED: CARB1TAB4 PO (06:40)
[2019-05-16] MEDS ORDERED: SENN-200 PO (06:40)
[2019-05-16] MEDS ORDERED: TRAZ-86 PO (06:40)
[2019-05-16] MEDS ORDERED: TORS20TA2 PO (06:40)
[2019-05-16] MEDS ORDERED: SEVE800T9 PO (06:40)
[2019-05-16] MEDS ORDERED: SIME80TA14 PO (06:40)
[2019-05-16] MEDS ORDERED: TRAM50TA PO (06:40)
--- NOTE | 2019-05-16 11:30 | EKG ---
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
--- NOTE | 2019-05-16 12:48 | NUR ---
SS following for discharge planning. SS received notification that pt is a resident from [facility], ; fax [phone]. SS contacted [facility] to verify pt's previous placement and received confirmation that pt is a LTC resident from there facility and is able to return when medically stable for discharge.
--- NOTE | 2019-05-16 12:52 | PDOC2 ---
CARDIAC CONSULT DATE OF CONSULT Date of Consult DATE: 05/16/19 TIME: 12:49 REASON FOR CONSULT Reason for Consult: Pulmonary edema REFERRING PHYSICIAN Referring Physician: Dr. Barnes SOURCE Source: Chart review, Patient HISTORY OF PRESENT ILLNESS HISTORY OF PRESENT ILLNESS This is a 78 yo male, with extensive cardiac history including hypertension, hyperlipidemia, AFIB, CAD s/p CABG 09', and ICM s/p AICD, who presented from nursing facility secondary to altered mental status. HPI obtain from chart review as patient is unable to contribute information due to mental status. Presently denies any chest pain, shortness of breath, dizziness, diaphoresis, or nausea/vomiting. PAST MEDICAL HISTORY Cardiovascular: AFIB, CAD, CHF, HTN, Hyperlipidemia, Other (atrial tachycardia, PAD ) Heme/Onc: Anemia NOS Psych: Depression Musculoskeletal: Osteoarthritis Rheumatologic: Gout Renal/: Chronic renal insuff Endocrine: Diabetes, Hypothyroidism PAST SURGICAL HISTORY Past Surgical History: Pacemaker (AICD ), CABG, Hernia Repair, Other (AV fistula, bilateral BKA) FAMILY HISTORY Family History: Diabetes, Heart Disease SOCIAL HISTORY Smoke: No ALCOHOL: none Drugs: None Lives: Detention CURRENT MEDICATIONS CURRENT MEDICATIONS Current Medications Medications (Trade) Dose Ordered Sig/Adithya Route PRN Reason Start Time Stop Time Status Last Admin Dose Admin Vancomycin HCl (Vanco Per Pharmacy) 1 each PRN DAILY PRN MC SEE COMMENTS 05/15/19 23:00 05/16/19 02:12 Levofloxacin/ Dextrose 150 ml @ 100 mls/hr 1X ONCE IV 05/15/19 23:30 05/16/19 00:59 DC 05/16/19 00:17 Sodium Chloride 1,000 ml @ 1,000 mls/hr 1X ONCE IV 05/15/19 23:30 05/16/19 00:29 DC 05/16/19 00:17 Sodium Chloride 1,000 ml @ 1,000 mls/hr 1X ONCE IV 05/15/19 23:30 05/16/19 00:29 DC 05/16/19 00:17 Vancomycin HCl 2 gm/Sodium Chloride 500 ml @ 250 mls/hr 1X ONCE IV 05/16/19 00:00 05/16/19 01:59 DC 05/16/19 00:15 Albumin Human 100 ml @ 100 mls/hr 1X ONCE IV 05/16/19 04:30 05/16/19 05:29 DC 05/16/19 04:14 Norepinephrine Bitartrate 250 ml @ 17.031 mls/ hr CONT PRN IV SEE I/O RECORD 05/16/19 04:00 05/16/19 04:21 Albumin Human 250 ml @ 125 mls/hr 1X ONCE IV 05/16/19 05:30 05/16/19 07:29 DC 05/16/19 05:11 ALLERGIES ALLERGIES: Coded Allergies: bumetanide (Verified Allergy, Intermediate, 05/31/18) cephalexin (Verified Allergy, Intermediate, 05/16/19) HAS TOLERATED MERREM AND ZOSYN metformin (Verified Allergy, Intermediate, 05/31/18) ROS Review of System unobtainable PHYSICAL EXAM General: Alert, Cooperative, No acute distress, Other (oriented to person only) Lungs: Other (bibasilar crackles ) Heart: Regular rate, Normal S1, Normal S2, Other (3/6 systolic murmur ) Abdomen: Soft Extremities: Other (bilateral BKA, trace edema ) Neuro: Normal speech, Sensation intact Psych/Mental Status: Other (confused) MUSCULOSKELETAL: Osteoarthritic changes both hands VITALS/I&O VITALS/I&O: Vital Signs Date Time Temp Pulse Resp B/P (MAP) Pulse Ox O2 Delivery O2 Flow Rate FiO2 05/16/19 09:13 68 16 111/53 (72) 100 Nasal Cannula 3.0 05/16/19 08:11 98.9 98.9 I & O 05/15/19 05/15/19 05/16/19 15:00 23:00 07:00 Intake Total 2250 ml Output Total 90 ml Balance 2160 ml LABS Lab: Laboratory Tests Test 05/15/19 23:10 05/16/19 00:32 05/16/19 00:41 05/16/19 00:48 White Blood Count 24.3 x10^3/uL (4.0-11.0) H Red Blood Count 2.88 x10^6/uL (4.30-5.70) L Hemoglobin 7.9 g/dL (13.0-17.5) L Hematocrit 25.2 % (39.0-53.0) L Mean Corpuscular Volume 87 fL (79-100) Mean Corpuscular Hemoglobin 28 pg (25-35) Mean Corpuscular Hemoglobin Concent 32 g/dL (31-37) Red Cell Distribution Width 22.2 % (11.5-14.5) H Platelet Count 196 x10^3/uL (140-400) Neutrophils (%) (Auto) 94 % (31-73) H Lymphocytes (%) (Auto) 1 % (24-48) L Monocytes (%) (Auto) 5 % (0-9) Eosinophils (%) (Auto) 0 % (0-3) Basophils (%) (Auto) 1 % (0-3) Neutrophils # (Auto) 22.7 x10^3/uL (1.8-7.7) H Lymphocytes # (Auto) 0.3 x10^3/uL (1.0-4.8) L Monocytes # (Auto) 1.1 x10^3/uL (0.0-1.1) Eosinophils # (Auto) 0.0 x10^3/uL (0.0-0.7) Basophils # (Auto) 0.1 x10^3/uL (0.0-0.2) Segmented Neutrophils % 89 % (35-66) H Band Neutrophils % 6 % (0-9) Lymphocytes % 1 % (24-48) L Monocytes % 2 % (0-10) Eosinophils % 2 % (0-5) Toxic Granulation Slight Platelet Estimate Adequate (ADEQUATE) Hypochromasia Slight Anisocytosis Mod Ovalocytes Few Schistocytes Occ Prothrombin Time 27.4 SEC (11.7-14.0) H Prothrombin Time INR 2.6 (0.8-1.1) H Activated Partial Thromboplast Time 44 SEC (24-38) H Sodium Level 133 mmol/L (136-145) L Potassium Level 5.1 mmol/L (3.5-5.1) Chloride Level 96 mmol/L (98-107) L Carbon Dioxide Level 32 mmol/L (21-32) Anion Gap 5 (6-14) L Blood Urea Nitrogen 81 mg/dL (8-26) H Creatinine 3.6 mg/dL (0.7-1.3) H Estimated GFR (Cockcroft-Gault) 16.5 BUN/Creatinine Ratio 23 (6-20) H Glucose Level 134 mg/dL (70-99) H Lactic Acid Level 2.3 mmol/L (0.4-2.0) H Calcium Level 8.8 mg/dL (8.5-10.1) Total Bilirubin 0.8 mg/dL (0.2-1.0) Direct Bilirubin 0.4 mg/dL (0.0-0.2) H Aspartate Amino Transferase (AST) 14 U/L (15-37) L Alanine Aminotransferase (ALT) < 6 U/L (16-63) L Alkaline Phosphatase 113 U/L (46-116) Total Protein 6.7 g/dL (6.4-8.2) Albumin 2.5 g/dL (3.4-5.0) L Albumin/Globulin Ratio 0.6 (1.0-1.7) L Procalcitonin 0.59 ng/mL (0.00-0.10) H Ammonia 15 mcmol/L (11-34) Urine Collection Type Unknown Urine Color Yellow Urine Clarity Cloudy Urine pH 6.5 Urine Specific [place] 1.010 Urine Protein Negative mg/dL (NEG-TRACE) Urine Glucose (UA) Negative mg/dL (NEG) Urine Ketones (Stick) Negative mg/dL (NEG) Urine Blood Negative (NEG) Urine Nitrite Negative (NEG) Urine Bilirubin Negative (NEG) Urine Urobilinogen Dipstick 0.2 mg/dL (0.2 mg/dL) Urine Leukocyte Esterase Negative (NEG) Urine RBC 0 /HPF (0-2) Urine WBC 0 /HPF (0-4) Urine Squamous Epithelial Cells Few /LPF Urine Bacteria 0 /HPF (0-FEW) Urine Hyaline Casts Moderate /HPF Urine Mucus Mod /LPF O2 Saturation 94 % (92-99) Arterial Blood pH 7.41 (7.35-7.45) Arterial Blood pCO2 at Patient Temp 45 mmHg (35-46) Arterial Blood pO2 at Patient Temp 79 mmHg (65-108) Arterial Blood HCO3 28 mmol/L (21-28) Arterial Blood Base Excess 3 mmol/L (-3-3) Oxyhemoglobin 93.1 % Methemoglobin 0.4 % (0.0-1.9) Carbon Monoxide, Quantitative 0.9 % (0.0-1.9) FiO2 32 Test 05/16/19 03:05 Lactic Acid Level 1.4 mmol/L (0.4-2.0) Laboratory Tests 05/15/19 23:10 Laboratory Tests 05/15/19 23:10 ECHOCARDIOGRAM ECHOCARDIOGRAM <Conclusion> The left ventricle is normal size. Left ventricle systolic function is moderately decreased. The Ejection Fraction is estimated at 35% on a technically difficult study. There is a device lead in the right ventricle. There is no significant aortic valvular stenosis. Doppler and Color Flow revealed no significant aortic regurgitation. Doppler and Color Flow revealed trace mitral valve regurgitation. Doppler and Color Flow revealed mild tricuspid regurgitation. The pulmonary artery systolic pressure is estimated at 40-45 mmHg. There is no evidence of significant pericardial effusion. DATE: 02/22/14 1447 STRESS TEST STRESS TEST Conclusion 1. Moderate in size and severe in intensity mostly fixed inferoapical and apical defect with abnormal wall motion to suggest previous infarction with small diana- infarct ischemia. 2. Ejection fraction calculated to be 36% with abnormal wall motion as described above on gated SPECT images. 3. Abnormal nuclear imaging scan. 4. Findings consistent with a low to intermediate risk scan. DATE: 02/23/14 1130 HEART CATH HEART CATH - 03/06 angio with 3 VCAD, EF 30% - s/p CABG 03/06 4 VCABG MINOR to LAD, SVG to RCA, seq SVG to diag and OM ASSESSMENT/PLAN ASSESSMENT/PLAN 1. Leukocytosis, lactic acidosis, ? sepsis; hypotensive requiring pressor support 2. Metabolic encephalopathy 3. Acute respiratory failure secondary to acute CHF and poss PNA 4. Acute on chronic combined systolic/diastolic CHF 5. CAD s/p CABG 03/06 with MINOR to LAD, SVG to RCA, seq SVG to diag and OM. Follows with Dr. Ordonez with MAC 6. ICM s/o AICD/CRTD ([employer]); Echo 2013 with LVEF 35% 7 ABBY on CKD; uremic 8. Hypertension; hypotensive 9. Hyperlipidemia 10. Persistent AFIB; chronic anticoagulation with warfarin. vpaced 11. Diabetes, II 12. Anemia of chronic disease 13. Hypothyroidism Recommendations No further IVFs Lasix PRN Pressor support as warranted Echo to assess LV systolic function Warfarin for stroke prevention Secondary prevention as able. REGINA RYAN APRN May 16, 2019 12:52
[2019-05-16] MEDS: PIPERACILLIN/TAZOBACTAM 2.25 GM in IV NORMAL SALINE 50ML 50 ML IV SCH ×2 (13:00→18:00)
--- NOTE | 2019-05-16 13:23 | PDOC2 ---
NEUROLOGY CONSULT Date of Admission Date of Admission DATE: 05/16/19 TIME: 13:17 Reason for Consult Reason for Consult: Left cerebellar stroke Referring Physician Referring Physician: Dr. Barnes Source Source: Chart review, Patient History of Present Illness History of Present Illness The patient is a 78-year-old right-handed male intermediate resident who had altered mental status starting yesterday. He had an abnormal CT of the head as reviewed below, but also had profound hypotension and is being treated for sepsis. He denies any history of stroke, seizure, or head injury. We do not have a good idea of his intellectual baseline as family is not available. Past Medical History Cardiovascular: AFIB (/flutter), CAD, CHF, HTN, Hyperlipidemia GI: Constipation Rheumatologic: Gout Renal/: Chronic renal failure (IV), Benign prostatic enlarg. Endocrine: Diabetes Dermatology: Basal cell Past Surgical History Past Surgical History: Pacemaker (/defibrillator), CABG, Cataract Removal, Hernia Repair (ventral), Tonsillectomy, Other (cardiac cath, bilateral BKA, right foot hammertoe) Family History Family History: No pertinent hx Social History Social History Single, intermediate resident, does not use alcohol or tobacco Current Medications Current Medications Current Medications Vancomycin HCl (Vanco Per Pharmacy) 1 each PRN DAILY PRN MC SEE COMMENTS Last administered on 05/16/19at 02:12; Start 05/15/19 at 23:00 Levofloxacin/ Dextrose 150 ml @ 100 mls/hr 1X ONCE IV Last administered on 05/16/19at 00:17; Start 05/15/19 at 23:30; Stop 05/16/19 at 00:59; Status DC Sodium Chloride 1,000 ml @ 1,000 mls/hr 1X ONCE IV ; Start 05/15/19 at 23:30; Stop 05/16/19 at 00:29; Status DC Sodium Chloride 1,000 ml @ 1,000 mls/hr 1X ONCE IV Last administered on 05/16/19at 00:17; Start 05/15/19 at 23:30; Stop 05/16/19 at 00:29; Status DC Sodium Chloride 1,000 ml @ 1,000 mls/hr 1X ONCE IV Last administered on 05/16/19at 00:17; Start 05/15/19 at 23:30; Stop 05/16/19 at 00:29; Status DC Vancomycin HCl 2 gm/Sodium Chloride 500 ml @ 250 mls/hr 1X ONCE IV Last administered on 05/16/19at 00:15; Start 05/16/19 at 00:00; Stop 05/16/19 at 01:59; Status DC Ondansetron HCl (Zofran) 4 mg PRN Q8HRS PRN IV NAUSEA/VOMITING 1ST CHOICE; Start 05/16/19 at 01:45; Stop 05/17/19 at 01:44 Vancomycin HCl 1.25 gm/Sodium Chloride 250 ml @ 167 mls/hr Q48H IV ; Start 05/18/19 at 00:00 Vancomycin HCl (Vancomycin Trough Level) 1 each 1X ONCE MC ; Start 05/19/19 at 23:30; Stop 05/19/19 at 23:31 Albumin Human 100 ml @ 100 mls/hr 1X ONCE IV Last administered on 05/16/19at 04:14; Start 05/16/19 at 04:30; Stop 05/16/19 at 05:29; Status DC Norepinephrine Bitartrate 250 ml @ 17.031 mls/ hr CONT PRN IV SEE I/O RECORD Last administered on 05/16/19at 04:21; Start 05/16/19 at 04:00 Info (FLU VACCINE SCREEN per RX) 1 each 1X ONCE MC ; Start 05/16/19 at 05:00; Stop 05/16/19 at 05:01; Status UNV Albumin Human 250 ml @ 125 mls/hr 1X ONCE IV Last administered on 05/16/19at 05:11; Start 05/16/19 at 05:30; Stop 05/16/19 at 07:29; Status DC Piperacillin Sod/ Tazobactam Sod 2.25 gm/Sodium Chloride 50 ml @ 100 mls/hr Q6HRS IV ; Start 05/16/19 at 13:00 Active Scripts Active Novolog Flexpen (Insulin Aspart) 300 Units/3 Ml Insuln.pen 8 Units SQ TIDWMEALS Reported Trazodone Hcl 100 Mg Tablet 1 Tab PO QHS Tramadol Hcl 50 Mg Tablet 50 Mg PO Q8HRS Torsemide 20 Mg Tablet 100 Mg PO BID Temazepam 15 Mg Capsule 1 Cap PO QHS Sinemet Cr 25-100 Tablet (Carbidopa/Levodopa) 1 Each Tablet.er 1 Tab PO TID Simethicone 80 Mg Tab.chew 80 Mg PO PRN Q6HRS PRN Senna Plus 8.6-50 mg Tablet (Sennosides/Docusate Sodium) 1 Each Tablet 1 Each PO BID Renvela (Sevelamer Carbonate) 800 Mg Tablet 3 Tab PO TIDAC Protonix (Pantoprazole Sodium) 40 Mg Tablet.dr 40 Mg PO DAILYAC Pravastatin Sodium 20 Mg Tablet 1 Tab PO HS Potassium Chloride 20 Meq Tablet.er 2 Tab PO DAILY Klor-Con M20 (Potassium Chloride) 20 Meq Tab.er.prt 1 Tab PO PRN DAILY PRN Novolog (Insulin Aspart) 100 Unit/1 Ml Cartridge 8 Unit SQ TIDBFRMEAL NITROGLYCERIN SubLingual (Nitroglycerin) 0.4 Mg Tab.subl 1 Tab SL UD PRN Miralax (Polyethylene Glycol 3350) 17 Gm Powd.pack 1 Packet PO BID Metoprolol Succinate ( Xl ) (Metoprolol Succinate) 25 Mg Tab.er.24h 1 Tab PO DAILY Metolazone 5 Mg Tablet 1.5 Tab PO DAILY Metolazone 2.5 Mg Tablet 2.5 Mg PO PRN DAILY PRN Melatonin 3 Mg Tablet 2 Tab PO QHS Levothyroxine Sodium 125 Mcg Tablet 1 Tab PO DAILY Lantus Solostar (Insulin Glargine,Hum.rec.anlog) 100 Unit/1 Ml Insuln.pen 12 Unit SQ QHS Acidophilus (Lactobacillus Acidophilus) 1 Each Capsule 1 Each PO DAILY Glucose Gel (Dextrose) 38 Gm Gel..gram. 38 Gm PO PRN PRN Gabapentin (Gabapentin) 100 Mg Capsule 100 Mg PO TID Flonase Allergy Relief (Fluticasone Propionate) 9.9 Ml [place].susp 2 Sprays NS DAILY Fleet Enema (Na Phos,M-B/Na Phos,Di-Ba) 133 Ml Enema 133 Ml RC PRN PRN Ferrous Gluconate 240 Mg Tablet 240 Mg PO DAILY Uloric (Febuxostat) 80 Mg Tablet 1 Tab PO DAILY Cymbalta (Duloxetine Hcl) 60 Mg Capsule.dr 1 Cap PO HS Cymbalta (Duloxetine Hcl) 30 Mg Capsule.dr 1 Cap PO DAILY Vitamin B-12 (Cyanocobalamin (Vitamin B-12)) 1,000 Mcg Tablet 1 Tab PO DAILY Coumadin (Warfarin Sodium) 2 Mg Tablet 1 Tab PO DAILY Vitamin D3 (Cholecalciferol (Vitamin D3)) 5,000 Unit Tablet 1 Tab PO DAILY Buspirone Hcl 5 Mg Tablet 1 Tab PO BID Bisacodyl 10 Mg Supp.rect 10 Mg RC PRN DAILY PRN Tylenol (Acetaminophen) 325 Mg Tablet 2 Tab PO PRN Q6HRS PRN Sertraline Hcl 100 Mg Tablet 100 Mg PO DAILY Aspir 81 (Aspirin) 81 Mg Tablet. 1 Tab PO DAILY Allergies Allergies: Coded Allergies: bumetanide (Verified Allergy, Intermediate, 05/31/18) cephalexin (Verified Allergy, Intermediate, 05/16/19) HAS TOLERATED MERREM AND ZOSYN metformin (Verified Allergy, Intermediate, 05/31/18) ROS Review of System Negative for fever, chills, weight loss, shortness of breath, chest pain, indigestion, hematochezia, melena, and dysuria. Full 14-point review of systems is negative. Physical Exam Physical Examination General: Well-developed, well-nourished white male in no acute distress HEENT: Normocephalic and�atraumatic. Temporal arteries�pulsatile and nontender.� Neck: Supple without bruit, no meningismus� Musculoskeletal: Stability:�see neurologic. Gait exam:�see neurologic. Tone:�see neurologic.�Strength:�see neurologic.� Neurological: Mental Status:orientation, memory, attention span/concentration, language, fund of knowledge: He knows that he is in a hospital but does not know its name, does not know the date, follows some simple commands. Cranial Nerves:�Pupils equal and reactive to light, extraocular movements are�intact, visual al are full to confrontation. Facial sensation is normal. There is no facial asymmetry. Vestibulo-ocular reflex is intact. Palate elevates and tongue protrudes in midline. All other cranial related problems are negative except as mentioned before.�Reflexes:�2+ and symmetric. Bilateral BKAs. Motor:�4/5 strength with normal tone and bulk. Coordination:�Finger-nose finger, poorly cooperative, but he does touch his nose with each hand without dysmetria. Rapid alternating movements and fine finger movements are intact. Gait:�Not tested. Sensory:�Normal pinprick, vibration, light touch, proprioception.� Vitals VITALS Vital Signs Date Time Temp Pulse Resp B/P (MAP) Pulse Ox O2 Delivery O2 Flow Rate FiO2 05/16/19 09:13 68 16 111/53 (72) 100 Nasal Cannula 3.0 05/16/19 08:11 98.9 98.9 Labs Labs Laboratory Tests Test 05/15/19 23:10 05/16/19 00:32 05/16/19 00:41 05/16/19 00:48 White Blood Count 24.3 x10^3/uL (4.0-11.0) Red Blood Count 2.88 x10^6/uL (4.30-5.70) Hemoglobin 7.9 g/dL (13.0-17.5) Hematocrit 25.2 % (39.0-53.0) Mean Corpuscular Volume 87 fL (79-100) Mean Corpuscular Hemoglobin 28 pg (25-35) Mean Corpuscular Hemoglobin Concent 32 g/dL (31-37) Red Cell Distribution Width 22.2 % (11.5-14.5) Platelet Count 196 x10^3/uL (140-400) Neutrophils (%) (Auto) 94 % (31-73) Lymphocytes (%) (Auto) 1 % (24-48) Monocytes (%) (Auto) 5 % (0-9) Eosinophils (%) (Auto) 0 % (0-3) Basophils (%) (Auto) 1 % (0-3) Neutrophils # (Auto) 22.7 x10^3/uL (1.8-7.7) Lymphocytes # (Auto) 0.3 x10^3/uL (1.0-4.8) Monocytes # (Auto) 1.1 x10^3/uL (0.0-1.1) Eosinophils # (Auto) 0.0 x10^3/uL (0.0-0.7) Basophils # (Auto) 0.1 x10^3/uL (0.0-0.2) Segmented Neutrophils % 89 % (35-66) Band Neutrophils % 6 % (0-9) Lymphocytes % 1 % (24-48) Monocytes % 2 % (0-10) Eosinophils % 2 % (0-5) Toxic Granulation Slight Platelet Estimate Adequate (ADEQUATE) Hypochromasia Slight Anisocytosis Mod Ovalocytes Few Schistocytes Occ Prothrombin Time 27.4 SEC (11.7-14.0) Prothromb Time International Ratio 2.6 (0.8-1.1) Activated Partial Thromboplast Time 44 SEC (24-38) Sodium Level 133 mmol/L (136-145) Potassium Level 5.1 mmol/L (3.5-5.1) Chloride Level 96 mmol/L (98-107) Carbon Dioxide Level 32 mmol/L (21-32) Anion Gap 5 (6-14) Blood Urea Nitrogen 81 mg/dL (8-26) Creatinine 3.6 mg/dL (0.7-1.3) Estimated GFR (Cockcroft-Gault) 16.5 BUN/Creatinine Ratio 23 (6-20) Glucose Level 134 mg/dL (70-99) Lactic Acid Level 2.3 mmol/L (0.4-2.0) Calcium Level 8.8 mg/dL (8.5-10.1) Total Bilirubin 0.8 mg/dL (0.2-1.0) Direct Bilirubin 0.4 mg/dL (0.0-0.2) Aspartate Amino Transf (AST/SGOT) 14 U/L (15-37) Alanine Aminotransferase (ALT/SGPT) < 6 U/L (16-63) Alkaline Phosphatase 113 U/L (46-116) Total Protein 6.7 g/dL (6.4-8.2) Albumin 2.5 g/dL (3.4-5.0) Albumin/Globulin Ratio 0.6 (1.0-1.7) Procalcitonin 0.59 ng/mL (0.00-0.10) Ammonia 15 mcmol/L (11-34) Urine Collection Type Unknown Urine Color Yellow Urine Clarity Cloudy Urine pH 6.5 Urine Specific [place] 1.010 Urine Protein Negative mg/dL (NEG-TRACE) Urine Glucose (UA) Negative mg/dL (NEG) Urine Ketones (Stick) Negative mg/dL (NEG) Urine Blood Negative (NEG) Urine Nitrite Negative (NEG) Urine Bilirubin Negative (NEG) Urine Urobilinogen Dipstick 0.2 mg/dL (0.2 mg/dL) Urine Leukocyte Esterase Negative (NEG) Urine RBC 0 /HPF (0-2) Urine WBC 0 /HPF (0-4) Urine Squamous Epithelial Cells Few /LPF Urine Bacteria 0 /HPF (0-FEW) Urine Hyaline Casts Moderate /HPF Urine Mucus Mod /LPF O2 Saturation 94 % (92-99) Arterial Blood pH 7.41 (7.35-7.45) Arterial Blood pCO2 at Patient Temp 45 mmHg (35-46) Arterial Blood pO2 at Patient Temp 79 mmHg (65-108) Arterial Blood HCO3 28 mmol/L (21-28) Arterial Blood Base Excess 3 mmol/L (-3-3) Oxyhemoglobin 93.1 % Methemoglobin 0.4 % (0.0-1.9) Carbon Monoxide, Quantitative 0.9 % (0.0-1.9) FiO2 32 Test 05/16/19 03:05 Lactic Acid Level 1.4 mmol/L (0.4-2.0) Laboratory Tests Test 05/15/19 23:10 05/16/19 00:32 05/16/19 00:41 05/16/19 00:48 White Blood Count 24.3 x10^3/uL (4.0-11.0) Red Blood Count 2.88 x10^6/uL (4.30-5.70) Hemoglobin 7.9 g/dL (13.0-17.5) Hematocrit 25.2 % (39.0-53.0) Mean Corpuscular Volume 87 fL (79-100) Mean Corpuscular Hemoglobin 28 pg (25-35) Mean Corpuscular Hemoglobin Concent 32 g/dL (31-37) Red Cell Distribution Width 22.2 % (11.5-14.5) Platelet Count 196 x10^3/uL (140-400) Neutrophils (%) (Auto) 94 % (31-73) Lymphocytes (%) (Auto) 1 % (24-48) Monocytes (%) (Auto) 5 % (0-9) Eosinophils (%) (Auto) 0 % (0-3) Basophils (%) (Auto) 1 % (0-3) Neutrophils # (Auto) 22.7 x10^3/uL (1.8-7.7) Lymphocytes # (Auto) 0.3 x10^3/uL (1.0-4.8) Monocytes # (Auto) 1.1 x10^3/uL (0.0-1.1) Eosinophils # (Auto) 0.0 x10^3/uL (0.0-0.7) Basophils # (Auto) 0.1 x10^3/uL (0.0-0.2) Segmented Neutrophils % 89 % (35-66) Band Neutrophils % 6 % (0-9) Lymphocytes % 1 % (24-48) Monocytes % 2 % (0-10) Eosinophils % 2 % (0-5) Toxic Granulation Slight Platelet Estimate Adequate (ADEQUATE) Hypochromasia Slight Anisocytosis Mod Ovalocytes Few Schistocytes Occ Prothrombin Time 27.4 SEC (11.7-14.0) Prothromb Time International Ratio 2.6 (0.8-1.1) Activated Partial Thromboplast Time 44 SEC (24-38) Sodium Level 133 mmol/L (136-145) Potassium Level 5.1 mmol/L (3.5-5.1) Chloride Level 96 mmol/L (98-107) Carbon Dioxide Level 32 mmol/L (21-32) Anion Gap 5 (6-14) Blood Urea Nitrogen 81 mg/dL (8-26) Creatinine 3.6 mg/dL (0.7-1.3) Estimated GFR (Cockcroft-Gault) 16.5 BUN/Creatinine Ratio 23 (6-20) Glucose Level 134 mg/dL (70-99) Lactic Acid Level 2.3 mmol/L (0.4-2.0) Calcium Level 8.8 mg/dL (8.5-10.1) Total Bilirubin 0.8 mg/dL (0.2-1.0) Direct Bilirubin 0.4 mg/dL (0.0-0.2) Aspartate Amino Transf (AST/SGOT) 14 U/L (15-37) Alanine Aminotransferase (ALT/SGPT) < 6 U/L (16-63) Alkaline Phosphatase 113 U/L (46-116) Total Protein 6.7 g/dL (6.4-8.2) Albumin 2.5 g/dL (3.4-5.0) Albumin/Globulin Ratio 0.6 (1.0-1.7) Procalcitonin 0.59 ng/mL (0.00-0.10) Ammonia 15 mcmol/L (11-34) Urine Collection Type Unknown Urine Color Yellow Urine Clarity Cloudy Urine pH 6.5 Urine Specific [place] 1.010 Urine Protein Negative mg/dL (NEG-TRACE) Urine Glucose (UA) Negative mg/dL (NEG) Urine Ketones (Stick) Negative mg/dL (NEG) Urine Blood Negative (NEG) Urine Nitrite Negative (NEG) Urine Bilirubin Negative (NEG) Urine Urobilinogen Dipstick 0.2 mg/dL (0.2 mg/dL) Urine Leukocyte Esterase Negative (NEG) Urine RBC 0 /HPF (0-2) Urine WBC 0 /HPF (0-4) Urine Squamous Epithelial Cells Few /LPF Urine Bacteria 0 /HPF (0-FEW) Urine Hyaline Casts Moderate /HPF Urine Mucus Mod /LPF O2 Saturation 94 % (92-99) Arterial Blood pH 7.41 (7.35-7.45) Arterial Blood pCO2 at Patient Temp 45 mmHg (35-46) Arterial Blood pO2 at Patient Temp 79 mmHg (65-108) Arterial Blood HCO3 28 mmol/L (21-28) Arterial Blood Base Excess 3 mmol/L (-3-3) Oxyhemoglobin 93.1 % Methemoglobin 0.4 % (0.0-1.9) Carbon Monoxide, Quantitative 0.9 % (0.0-1.9) FiO2 32 Test / 03:05 Lactic Acid Level 1.4 mmol/L (0.4-2.0) Images Images CT head without contrast 2 cm linear age-indeterminate hypodense ischemic infarct posterior right cerebellum. Generalized mild brain atrophy. Cerebral periventricular white matter hypoattenuation presumably representing changes of chronic microvascular ischemic disease. No intracranial hemorrhage, mass or hydrocephalus. Fluid within the left maxillary sinus. Mastoids, orbits and bones are unremarkable. IMPRESSION: 1. 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 2. Left maxillary sinus fluid likely sinusitis. Assessment/Plan Assessment/Plan Impression: Metabolic encephalopathy related to sepsis I doubt that the cerebellar infarct is clinically relevant as cerebellar lesions usually do not cause isolated mental status changes and the CT scan would not show acute infarct causing the acute mental status change. Recommendations: Repeat head CT tomorrow, he cannot have an MRI. Treatment of medical problems. Nurse did place a call into the family who have not returned it. I would be glad to talk to them when they are available. Thank you for letting me help the patient's care. STEPHANIE DUKE MD May 16, 2019 13:23
--- NOTE | 2019-05-16 13:54 | HP ---
ADMIT DATE: 05/16/2019 CHIEF COMPLAINT: Mental status change. HISTORY OF PRESENT ILLNESS: The patient is a pleasant 78-year-old male who presents with mental status change. He apparently lives at nursing facility. He is usually a good historian. His mental status change has been occurring for about 12-24 hours. I discussed the case with ER physician. It appears the patient might be septic. He also has acute on chronic systolic and diastolic heart failure. We are going to admit the patient and consult Cardiology, Neurology and Infectious Disease. PAST MEDICAL HISTORY: Hypertension, hyperlipidemia, CHF, CAD, hypothyroidism, skin cancer, cardiac bypass surgery, pacemaker and AICD, tooth extractions. ALLERGIES: CEPHALEXIN, METFORMIN AND BUMEX. FAMILY HISTORY: Coronary artery disease. SOCIAL HISTORY: Does not drink, smoke or take drugs. He is retired, lives [facility]. MEDICATIONS: Reviewed, please refer to the MRAD. REVIEW OF SYSTEMS: Unable to obtain. The patient is too confused. PHYSICAL EXAMINATION: VITALS: Within normal limits and are stable. GENERAL: No apparent distress. Alert and oriented. HEENT: Head is normocephalic, atraumatic, pupils were equally round and reactive to light and accommodation. NECK: Supple, no JVD, no thyromegaly was noted. LUNGS: Clear to auscultation in all lung al without rhonchi or wheezing. HEART: RRR, S1, S2 present. Peripheral pulses intact, no obvious murmurs were noted. ABDOMEN: Soft, nontender. Positive bowel sounds no organomegaly, normal bowel sounds. EXTREMITIES: Without any cyanosis, clubbing, or edema. Pedal pulses intact, Homans sign is negative. NEUROLOGIC: He is twitching. He barely awakens and talks briefly, in fact, I thought he was asleep all time, but he now awakens and tries to talk but he does not know the year or who the president is. PSYCHIATRIC: Normal affect, normal mood. Stable. SKIN: No ulcerations or rashes, good skin turgor, no jaundice. VASCULAR: Good capillary refill, neurovascular bundle appears to be intact. LABORATORY DATA: White count is 24, hemoglobin is 7.9. Electrolytes: Sodium 133, potassium 5.1, chloride 96, bicarbonate 32, BUN 81, creatinine 3.6, glucose is 134, pH is 7.41. CT of the head shows a possible stroke, 2 cm in the right cerebellum. ASSESSMENT AND PLAN: Mental status change with stroke, sepsis, heart failure and possible pneumonia. The patient will be admitted. We will consult Infectious Disease, Cardiology, Neurology and Pulmonary. Home meds. Deep venous thrombosis prophylaxis. Full code. Physical therapy, occupational therapy. Long-term prognosis is guarded. NIKKO YMERS DO DR: LILLIAM/cece JOB#: [id number] / [id number]
--- NOTE | 2019-05-16 15:17 | CONS ---
DATE OF CONSULTATION: PULMONARY CONSULTATION ATTENDING PHYSICIAN: Dr. Barnes. REASON FOR CONSULTATION: Abnormal chest x-ray, pneumonia. HISTORY OF PRESENT ILLNESS: The patient is a 78-year-old male who has a history of hypertension, CHF, coronary artery disease, coronary artery bypass surgery, pacemaker and AICD. He was brought into our facility from a [place] [facility] with some altered mental status. The patient, upon my evaluation, he appears to be in no obvious respiratory distress. He answers most of the questions. He denies any shortness of breath. Denies any cough or fever or chills. He states that everything seems to be normal. He does understand that he is at the hospital. I have reviewed the patient's chest x-ray and it shows evidence of congestive heart failure with interstitial markings and also left-sided pleural effusion. There was remarkable volume loss in the left lower lobe and left upper lobe. His chest x-ray findings essentially unchanged on the two films that were done yesterday. He did trigger sepsis as a result, he did receive a few liters of IV fluids. Followup x-ray has not been done to assess for worsening CHF. PAST MEDICAL HISTORY: 1. History of hypertension. 2. Hyperlipidemia. 3. CHF, unknown EF. 4. History of CAD. 5. Hypothyroidism. PAST SURGICAL HISTORY: Pacemaker, AICD, tooth extractions and coronary artery bypass. FAMILY HISTORY: Coronary artery disease. SOCIAL HISTORY: No history of tobacco or alcohol use. Lives in a [place] [facility] facility. MEDICATIONS: Reviewed as listed in the MRAD. REVIEW OF SYSTEMS: Ten-point system obtained. Pertinent positives discussed in my history of present illness, otherwise noncontributory. All systems that were negative were reviewed as well. ALLERGIES: BUMETANIDE, CEPHALEXIN AND METFORMIN. PHYSICAL EXAMINATION: VITAL SIGNS: Reviewed. Blood pressure 100/48. He is on low-dose Levophed. Afebrile, pulse ox 100% on 3 liters. HEENT: Sclerae nonicteric. NECK: Supple. LUNGS: With diminished breath sounds with few crackles at the bases. CARDIOVASCULAR: Regular rate. ABDOMEN: Soft, obese. EXTREMITIES: With bilateral amputation. LABORATORY DATA: Reviewed. White cell count 24.3, hemoglobin 7.9, platelets of 196. ABGs with a pH of 7.41, pCO2 of 45 and a pO2 of 79 on 32% FiO2. BUN 81 and a creatinine of 3.6. Procalcitonin 0.59. IMPRESSION: 1. Dyspnea with acute hypoxic respiratory failure. Etiology could be multifactorial and includes combination of interstitial pneumonia versus interstitial edema. 2. Acute kidney injury on chronic kidney disease. 3. Abnormal chest x-ray with bilateral interstitial infiltrates with left-sided pleural effusion along with cardiomegaly. I suspect that he could have severe cardiomyopathy. He does have history of AICD. We will do a noncontrast CT chest to assess for interstitial infiltrate versus interstitial lung disease or fibrosis. 4. Increased procalcitonin. We will cover for infectious etiology. 5. Chronic anticoagulation with an INR of 2.6. RECOMMENDATIONS: 1. Continue with present antibiotic per ID. 2. Noncontrast CT chest to assess for any infiltrates related to congestive heart failure versus pneumonia or fibrosis. 3. Monitor white cell count. 4. Obtain echocardiogram. 5. Hold further IV fluids. 6. Monitor renal function. 7. Follow Neurology recommendations. 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 6. Discussed with RN and we will follow along with you. Critical care time 37 minutes. MARY PALM MD DR: HEATHER/cece JOB#: [id number] / [id number]
--- NOTE | 2019-05-16 16:31 | CARD ---
MR#: [id number] Date of Study: 05/16/2019 Ordering Physician: MARY PALM, Referring Physician: MARY PALM Tech: Carolin Teague RDCS APPROVED REPORT EXAM: Two-dimensional and M-mode echocardiogram with Doppler and color Doppler. Other Information Quality : Technically Limited Rhythm : PacemakerTechnically limited study due to body habitus. INDICATION Congestive Heart Failure 2D DIMENSIONS RVDd4.0 (2.9-3.5cm)Left Atrium(2D)4.2 (1.6-4.0cm) IVSd1.0 (0.7-1.1cm)Aortic Root(2D)2.9 (2.0-3.7cm) LVDd4.8 (3.9-5.9cm)LVOT Diameter2.2 (1.8-2.4cm) PWd0.9 (0.7-1.1cm)LVDs3.4 (2.5-4.0cm) FS (%) 28.9 %SV58.9 ml LVEF(%)50.0 (>50%) Aortic Valve AoV Peak Christian.142.4cm/sAoV VTI23.3cm AO Peak GR.8.1mmHgLVOT VTI 11.66cm AO Mean GR.5mmHgAVA (VTI)1.90cm2 Mitral Valve MV E Oyebipwv283.6cm/sMV DECEL [id number] MV A Lcwdzvrl25.5cm/sE/A Ratio2.9 Tricuspid Valve TR P. Hmmogcgs920si/sRAP BDGDBEUY4uzSd TR Peak Gr.42utCkTAQQ03saFd Pulmonary Vein S1 Hdrhnzcw39.5cm/sS2 Itysbdcl46.47cm/s D2 Oqgwaaub73.5cm/s LEFT VENTRICLE The left ventricle is normal size. There is normal left ventricular wall thickness. Left ventricle sy stolic function is mildly impaired. The Ejection Fraction is 45-50%. There is a mildly flattened sept um consistent with right ventricle pressure overload. RIGHT VENTRICLE The right ventricle is mildly dilated. Systolic function is mildly reduced. There is a device lead in the right ventricle. ATRIA The left atrium is mildly dilated. A pacemaker is seen in the right atrium consistent with history. T he right atrium is mildly dilated. The interatrial septum is intact with no evidence for an atrial se ptal defect or patent foramen ovale as noted on 2-D or Doppler imaging. AORTIC VALVE The aortic valve is calcified but opens well. Doppler and Color Flow revealed no significant aortic r egurgitation. There is no significant aortic valvular stenosis. MITRAL VALVE The mitral valve is calcified but opens well. There is no evidence of mitral valve prolapse. There is no mitral valve stenosis. Doppler and Color Flow revealed mild mitral valve regurgitation. TRICUSPID VALVE The tricuspid valve is normal in structure and function. Doppler and Color Flow revealed mild tricusp id regurgitation. The PA pressure was estimated at 48 mmHg. There is no tricuspid valve stenosis. PULMONIC VALVE The pulmonic valve is not well visualized. Doppler and Color Flow revealed no pulmonic valvular regur gitation. There is no pulmonic valvular stenosis. GREAT VESSELS The aortic root is normal in size. The ascending aorta is not well seen. The IVC is dilated and colla pses >50% with inspiration. PERICARDIAL EFFUSION There is moderate left pleural effusion. There is no evidence of significant pericardial effusion. Critical Notification Critical Value: No <Conclusion> The left ventricle is normal size. Left ventricle systolic function is mildly impaired. The Ejection Fraction is 45-50%. There is a mildly flattened septum consistent with right ventricle pressure overload. There are device leads in the right ventricle and atrium. There is no significant aortic valvular stenosis. Doppler and Color Flow revealed no significant aortic regurgitation. Doppler and Color Flow revealed mild mitral valve regurgitation. Doppler and Color Flow revealed mild tricuspid regurgitation. The PA pressure was estimated at 48 mmHg. Signed by : Christian Osman MD Electronically Approved : 05/16/2019 16:30:42
[2019-05-17] VITALS (25 sets, daily range): BP systolic 81–149; BP diastolic 29–69
[2019-05-17] MEDS: PIPERACILLIN/TAZOBACTAM 2.25 GM in IV NORMAL SALINE 50ML 50 ML IV SCH ×4 (00:25→17:47)
[2019-05-17 05:57] LABS: BASO # 0.1 x10^3/uL (0.0-0.2); BASO % 1 % (0-3); EOS # 0.3 x10^3/uL (0.0-0.7); EOS % 2 % (0-3); HEMATOCRIT 23.2 % (39.0-53.0); HEMOGLOBIN 7.3 g/dL (13.0-17.5); LYMPH # 0.2 x10^3/uL (1.0-4.8); LYMPH % 2 % (24-48); MEAN CORPUSCULAR HEMOGLOBIN 28 pg (25-35); MEAN CORPUSCULAR HGB CONC 32 g/dL (31-37); MEAN CORPUSCULAR VOLUME 87 fL (79-100); MONO # 0.6 x10^3/uL (0.0-1.1); MONO % 5 % (0-9); NEUT # 11.6 x10^3/uL (1.8-7.7); NEUT % 91 % (31-73); PLATELET COUNT 169 x10^3/uL (140-400); RED BLOOD COUNT 2.66 x10^6/uL (4.30-5.70); RED CELL DISTRIBUTION WIDTH 22.2 % (11.5-14.5); WHITE BLOOD COUNT 12.7 x10^3/uL (4.0-11.0)
[2019-05-17 06:11] LABS: ALBUMIN 2.5 g/dL (3.4-5.0); ALBUMIN/GLOBULIN RATIO 0.7 (1.0-1.7); ALK PHOS 86 U/L (46-116); ANION GAP 8 (6-14); AST (SGOT) 13 U/L (15-37); BLOOD UREA NITROGEN 83 mg/dL (8-26); BUN/CREATININE RATIO 21 (6-20); CALCIUM 8.4 mg/dL (8.5-10.1); CARBON DIOXIDE 27 mmol/L (21-32); CHLORIDE 100 mmol/L (98-107); CREATININE 3.9 mg/dL (0.7-1.3); GLUCOSE 143 mg/dL (70-99); POTASSIUM 5.2 mmol/L (3.5-5.1); SODIUM 135 mmol/L (136-145); TOTAL BILIRUBIN 0.9 mg/dL (0.2-1.0); TOTAL PROTEIN 6.1 g/dL (6.4-8.2)
[2019-05-17 06:15] LABS: PROTHROMBIN TIME PATIENT 31.7 SEC (11.7-14.0)
[2019-05-17 06:26] LABS: ALT (SGPT) < 6 U/L (16-63)
--- NOTE | 2019-05-17 07:18 | PDOC ---
Infectious Disease Note Vital Sign Vital Signs Vital Signs Date Time Temp Pulse Resp B/P (MAP) Pulse Ox O2 Delivery O2 Flow Rate FiO2 05/17/19 06:00 69 16 98/41 (60) 93 Room Air 05/17/19 04:00 3.0 05/17/19 04:00 99.7 99.7 Labs Lab Laboratory Tests Test 05/17/19 05:30 White Blood Count 12.7 x10^3/uL (4.0-11.0) Red Blood Count 2.66 x10^6/uL (4.30-5.70) Hemoglobin 7.3 g/dL (13.0-17.5) Hematocrit 23.2 % (39.0-53.0) Mean Corpuscular Volume 87 fL (79-100) Mean Corpuscular Hemoglobin 28 pg (25-35) Mean Corpuscular Hemoglobin Concent 32 g/dL (31-37) Red Cell Distribution Width 22.2 % (11.5-14.5) Platelet Count 169 x10^3/uL (140-400) Neutrophils (%) (Auto) 91 % (31-73) Lymphocytes (%) (Auto) 2 % (24-48) Monocytes (%) (Auto) 5 % (0-9) Eosinophils (%) (Auto) 2 % (0-3) Basophils (%) (Auto) 1 % (0-3) Neutrophils # (Auto) 11.6 x10^3/uL (1.8-7.7) Lymphocytes # (Auto) 0.2 x10^3/uL (1.0-4.8) Monocytes # (Auto) 0.6 x10^3/uL (0.0-1.1) Eosinophils # (Auto) 0.3 x10^3/uL (0.0-0.7) Basophils # (Auto) 0.1 x10^3/uL (0.0-0.2) Prothrombin Time 31.7 SEC (11.7-14.0) Prothromb Time International Ratio 3.1 (0.8-1.1) Sodium Level 135 mmol/L (136-145) Potassium Level 5.2 mmol/L (3.5-5.1) Chloride Level 100 mmol/L (98-107) Carbon Dioxide Level 27 mmol/L (21-32) Anion Gap 8 (6-14) Blood Urea Nitrogen 83 mg/dL (8-26) Creatinine 3.9 mg/dL (0.7-1.3) Estimated GFR (Cockcroft-Gault) 15.0 BUN/Creatinine Ratio 21 (6-20) Glucose Level 143 mg/dL (70-99) Calcium Level 8.4 mg/dL (8.5-10.1) Total Bilirubin 0.9 mg/dL (0.2-1.0) Aspartate Amino Transf (AST/SGOT) 13 U/L (15-37) Alanine Aminotransferase (ALT/SGPT) < 6 U/L (16-63) Alkaline Phosphatase 86 U/L (46-116) Total Protein 6.1 g/dL (6.4-8.2) Albumin 2.5 g/dL (3.4-5.0) Albumin/Globulin Ratio 0.7 (1.0-1.7) Micro Microbiology 05/16/19 Blood Culture - Preliminary, Resulted NO GROWTH AFTER 1 DAY Objective Assessment sepsis POA - fever/Hypotension/pneumonia/Encephalopathy/ABBY. Elevated Procalcitonin but ? reliability in renal failure RUE ? cellulitis Pneumonia ABBY on CKD Cephalexin allergy but has tolerated Zosyn/Meropenem in past Leukocytosis - better L max ? sinusitis Afib Cerebellar infarct - ? age Cardiomyopathy with pacemaker Plan Plan of Care Vanc and Levoflox dosed previously hold further quinolones I added Zosyn per pharmacy 05/16 D/c additional Vanc with ABBY on CKD Add zyvox today. MRSA screen neg but with pneumonia and [facility] is at risk/Cellulitis F/u labs and cults Monitor RUE D/w pharmacy 05/16 Reviewed [facility] records d/w nursing 35 cc time Thank you # [id number] ADRI RABAGO MD May 17, 2019 07:18
--- NOTE | 2019-05-17 07:55 | CONS ---
DATE OF CONSULTATION: 05/17/2019 INFECTIOUS DISEASE CONSULTATION REQUESTING PHYSICIAN: Dorene Barnes III, DO REASON FOR CONSULTATION: Sepsis. HISTORY OF PRESENT ILLNESS: The patient is a 78-year-old gentleman, who is a group home resident at [facility], has a history of osteomyelitis of the right first distal toe. He was brought to [facility] on 05/16/2019 to the nursing facility secondary to altered mental status. Apparently, it worsened throughout the day. On arrival to the ER, he is arousable to painful stimuli only. He had a systolic pressure in the 70s. White blood cell count was elevated at 24.3. Glucose was 134. Creatinine was 3.6. Urinalysis was not consistent with urinary tract infection. Chest x-ray was obtained. He has some congestive heart failure with pulmonary interstitial edema and dense opacity in the left lower lobe. He underwent a CT scan of his head, showed an age indeterminate 2-cm right cerebellar ischemic infarct and left maxillary sinus fluid, likely sinusitis. He underwent placement of right IJ. A chest x-ray at that time showed stable changes. He was afebrile on arrival. He was given vancomycin and levofloxacin. Because of his hypotension, he was admitted to the Intensive Care Unit. Pressures did drop down into the 60s/30s. He has been placed on Levophed. I was consulted yesterday afternoon and reviewed his previous medication dosing with pharmacy and instituted Zosyn. Currently, the patient will awaken, but will not answer any questions except for denying any cough. PAST MEDICAL HISTORY: Positive for previous toe infection and Enterococcus there, history of atrial fibrillation, coronary artery disease, congestive heart failure, hypertension, hyperlipidemia with atrial tachycardia, peripheral arterial disease, anemia, depression, osteoarthritis, osteomyelitis, gout, chronic renal insufficiency, diabetes, hypothyroidism. PAST SURGICAL HISTORY: Positive for toe amputations, bilateral lower extremity BKAs, pacemaker, CABG, hernia repair and AV fistula. REVIEW OF SYSTEMS: Unobtainable as he would not answer questions today. ALLERGIES: Listed as CEPHALEXIN; however, he has tolerated Zosyn and meropenem in the past. SOCIAL HISTORY: He is a group home resident. No alcohol. FAMILY HISTORY: Positive for diabetes and heart disease. CURRENT MEDICATIONS: Include Levophed, but at the smallest dose possible, Zosyn 2.25 IV q. 6, vancomycin has been dosed. He did receive a dose of levofloxacin. PHYSICAL EXAMINATION: VITAL SIGNS: Temperature currently 99.7 orally, pulse 69, respirations 16, blood pressure 98/41, satting 93% on room air. CONSTITUTIONAL: He was sleeping on arrival, but did awaken. His mouth was open on my arrival. I did not see any thrush or acute complications. His conjunctivae are normal. NECK: Supple. No JVD. Right IJ without signs of any complications. HEART: S1, S2 with a 2/6 murmur. Pacemaker without signs of complications. ABDOMEN: Soft, nontender. No guarding. GENITOURINARY: Has a Garcia in place. EXTREMITIES: Bilateral lower extremity BKAs, without any wounds. His right upper extremity has area of erythema and warmth and there is some mild tenderness on deep palpation, but there is no gross induration or fullness. SKIN: Otherwise, warm without signs of rash. NEUROLOGIC: He did awaken, but would not answer any questions. LABORATORY VALUES: White count on arrival was 24.3; today it is 12.7, hemoglobin today is 7.3, platelets of 169. Neutrophils are 91. Creatinine was 3.6. He had creatinine of 1.6 in 05/2015; currently it is 3.9. Glucose 143. Procalcitonin was 0.59. Lactic acid is corrected to 1.4. MRSA screens are negative. Blood cultures are currently pending. Again, urinalysis is not consistent with urinary tract infection. Chest x-ray reviewed in the history of present illness. IMPRESSION: 1. Sepsis present on admission, fever, hypertension, questionable pneumonia, encephalopathy and acute kidney injury. 2. Elevated procalcitonin, but questionable reliability in renal failure. 3. Questionable right upper extremity cellulitis. 4. Pneumonia. 5. Acute kidney injury on chronic kidney disease. 6. CEPHALEXIN ALLERGY, but tolerated Zosyn and meropenem in the past. 7. Leukocytosis better. 8. Left maxillary sinusitis or questionable sinusitis. 9. Atrial fibrillation. 10. Cerebellar infarct, questionable age. 11. Cardiomyopathy with pacemaker. RECOMMENDATIONS: Again, levofloxacin, with dose previously. We will hold further quinolones. I added Zosyn per pharmacy on the , but for now we will discontinue additional vancomycin with acute kidney injury and chronic kidney disease. We will add Zyvox today as in discussions with nursing. The Levophed should be discontinued. MRSA screen is negative, but with pneumonia and being a group home resident, he is at risk for MRSA. He also has cellulitis. He will follow up labs and cultures. We will monitor his right upper extremity. This was discussed with pharmacy on . I did review [facility] records, I discussed with nursing, spent 35 minutes of critical care time. Thank you for allowing me to participate in the patient's care. Should you have any further questions, please do not hesitate to contact me and we will follow up further Neurology evaluation and CT of the chest. ADRI RABAGO MD DR: BABATUNDE/cece JOB#: [id number] / [id number]
--- NOTE | 2019-05-17 08:20 | PDOC ---
PROGRESS NOTES Assessment Problems Medical Problems: (1) Acute kidney injury superimposed on CKD Status: Acute (2) Acute respiratory failure with hypoxia Status: Acute (3) Chronic kidney disease, stage 4 (severe) Status: Acute (4) CVA (cerebral vascular accident) Status: Acute (5) Dyspnea Status: Acute (6) HCAP (healthcare-associated pneumonia) Status: Acute (7) Pleural effusion on left Status: Acute (8) Pulmonary edema Status: Acute (9) Severe sepsis Status: Acute Metabolic encephalopathy related to sepsis I doubt that the cerebellar infarct is clinically relevant as cerebellar lesions usually do not cause isolated mental status changes and the CT scan would not show acute infarct causing the acute mental status change. Plan Await repeat head CT Treatment of medical problems. Subjective no complaints Objective Vital Signs Date Time Temp Pulse Resp B/P (MAP) Pulse Ox O2 Delivery O2 Flow Rate FiO2 05/17/19 06:00 69 16 98/41 (60) 93 Room Air 05/17/19 04:00 3.0 05/17/19 04:00 99.7 99.7 Intake and Output 05/17/19 07:00 Intake Total 657 ml Output Total 290 ml Balance 367 ml Intake Oral 0 ml IV Total 657 ml Output Urine Total 290 ml PHYSICAL EXAM Alert. Oriented to "hospital" and person. PERRL. EOMI. CN: no focal findings. Muscle tone: normal. Muscle strength: 4/5 DTR: 2+ Plantar reflex: bilateral BKA's Gait: not examined in bed. Sensory exam: no abnormal findings. Automatisms of left arm, clutching at imaginary objects Review of Relevant I have reviewed the following items nestor (where applicable) has been applied. Labs Laboratory Tests Test 05/15/19 23:10 05/16/19 00:32 05/16/19 00:41 05/16/19 00:48 White Blood Count 24.3 x10^3/uL (4.0-11.0) Red Blood Count 2.88 x10^6/uL (4.30-5.70) Hemoglobin 7.9 g/dL (13.0-17.5) Hematocrit 25.2 % (39.0-53.0) Mean Corpuscular Volume 87 fL (79-100) Mean Corpuscular Hemoglobin 28 pg (25-35) Mean Corpuscular Hemoglobin Concent 32 g/dL (31-37) Red Cell Distribution Width 22.2 % (11.5-14.5) Platelet Count 196 x10^3/uL (140-400) Neutrophils (%) (Auto) 94 % (31-73) Lymphocytes (%) (Auto) 1 % (24-48) Monocytes (%) (Auto) 5 % (0-9) Eosinophils (%) (Auto) 0 % (0-3) Basophils (%) (Auto) 1 % (0-3) Neutrophils # (Auto) 22.7 x10^3/uL (1.8-7.7) Lymphocytes # (Auto) 0.3 x10^3/uL (1.0-4.8) Monocytes # (Auto) 1.1 x10^3/uL (0.0-1.1) Eosinophils # (Auto) 0.0 x10^3/uL (0.0-0.7) Basophils # (Auto) 0.1 x10^3/uL (0.0-0.2) Segmented Neutrophils % 89 % (35-66) Band Neutrophils % 6 % (0-9) Lymphocytes % 1 % (24-48) Monocytes % 2 % (0-10) Eosinophils % 2 % (0-5) Toxic Granulation Slight Platelet Estimate Adequate (ADEQUATE) Hypochromasia Slight Anisocytosis Mod Ovalocytes Few Schistocytes Occ Prothrombin Time 27.4 SEC (11.7-14.0) Prothromb Time International Ratio 2.6 (0.8-1.1) Activated Partial Thromboplast Time 44 SEC (24-38) Sodium Level 133 mmol/L (136-145) Potassium Level 5.1 mmol/L (3.5-5.1) Chloride Level 96 mmol/L (98-107) Carbon Dioxide Level 32 mmol/L (21-32) Anion Gap 5 (6-14) Blood Urea Nitrogen 81 mg/dL (8-26) Creatinine 3.6 mg/dL (0.7-1.3) Estimated GFR (Cockcroft-Gault) 16.5 BUN/Creatinine Ratio 23 (6-20) Glucose Level 134 mg/dL (70-99) Lactic Acid Level 2.3 mmol/L (0.4-2.0) Calcium Level 8.8 mg/dL (8.5-10.1) Total Bilirubin 0.8 mg/dL (0.2-1.0) Direct Bilirubin 0.4 mg/dL (0.0-0.2) Aspartate Amino Transf (AST/SGOT) 14 U/L (15-37) Alanine Aminotransferase (ALT/SGPT) < 6 U/L (16-63) Alkaline Phosphatase 113 U/L (46-116) Total Protein 6.7 g/dL (6.4-8.2) Albumin 2.5 g/dL (3.4-5.0) Albumin/Globulin Ratio 0.6 (1.0-1.7) Procalcitonin 0.59 ng/mL (0.00-0.10) Ammonia 15 mcmol/L (11-34) Urine Collection Type Unknown Urine Color Yellow Urine Clarity Cloudy Urine pH 6.5 Urine Specific [place] 1.010 Urine Protein Negative mg/dL (NEG-TRACE) Urine Glucose (UA) Negative mg/dL (NEG) Urine Ketones (Stick) Negative mg/dL (NEG) Urine Blood Negative (NEG) Urine Nitrite Negative (NEG) Urine Bilirubin Negative (NEG) Urine Urobilinogen Dipstick 0.2 mg/dL (0.2 mg/dL) Urine Leukocyte Esterase Negative (NEG) Urine RBC 0 /HPF (0-2) Urine WBC 0 /HPF (0-4) Urine Squamous Epithelial Cells Few /LPF Urine Bacteria 0 /HPF (0-FEW) Urine Hyaline Casts Moderate /HPF Urine Mucus Mod /LPF O2 Saturation 94 % (92-99) Arterial Blood pH 7.41 (7.35-7.45) Arterial Blood pCO2 at Patient Temp 45 mmHg (35-46) Arterial Blood pO2 at Patient Temp 79 mmHg (65-108) Arterial Blood HCO3 28 mmol/L (21-28) Arterial Blood Base Excess 3 mmol/L (-3-3) Oxyhemoglobin 93.1 % Methemoglobin 0.4 % (0.0-1.9) Carbon Monoxide, Quantitative 0.9 % (0.0-1.9) FiO2 32 Test 05/16/19 02:25 05/16/19 03:05 05/17/19 05:30 Nasal Screen MRSA (PCR) Negative (Negative) Lactic Acid Level 1.4 mmol/L (0.4-2.0) White Blood Count 12.7 x10^3/uL (4.0-11.0) Red Blood Count 2.66 x10^6/uL (4.30-5.70) Hemoglobin 7.3 g/dL (13.0-17.5) Hematocrit 23.2 % (39.0-53.0) Mean Corpuscular Volume 87 fL (79-100) Mean Corpuscular Hemoglobin 28 pg (25-35) Mean Corpuscular Hemoglobin Concent 32 g/dL (31-37) Red Cell Distribution Width 22.2 % (11.5-14.5) Platelet Count 169 x10^3/uL (140-400) Neutrophils (%) (Auto) 91 % (31-73) Lymphocytes (%) (Auto) 2 % (24-48) Monocytes (%) (Auto) 5 % (0-9) Eosinophils (%) (Auto) 2 % (0-3) Basophils (%) (Auto) 1 % (0-3) Neutrophils # (Auto) 11.6 x10^3/uL (1.8-7.7) Lymphocytes # (Auto) 0.2 x10^3/uL (1.0-4.8) Monocytes # (Auto) 0.6 x10^3/uL (0.0-1.1) Eosinophils # (Auto) 0.3 x10^3/uL (0.0-0.7) Basophils # (Auto) 0.1 x10^3/uL (0.0-0.2) Prothrombin Time 31.7 SEC (11.7-14.0) Prothromb Time International Ratio 3.1 (0.8-1.1) Sodium Level 135 mmol/L (136-145) Potassium Level 5.2 mmol/L (3.5-5.1) Chloride Level 100 mmol/L (98-107) Carbon Dioxide Level 27 mmol/L (21-32) Anion Gap 8 (6-14) Blood Urea Nitrogen 83 mg/dL (8-26) Creatinine 3.9 mg/dL (0.7-1.3) Estimated GFR (Cockcroft-Gault) 15.0 BUN/Creatinine Ratio 21 (6-20) Glucose Level 143 mg/dL (70-99) Calcium Level 8.4 mg/dL (8.5-10.1) Total Bilirubin 0.9 mg/dL (0.2-1.0) Aspartate Amino Transf (AST/SGOT) 13 U/L (15-37) Alanine Aminotransferase (ALT/SGPT) < 6 U/L (16-63) Alkaline Phosphatase 86 U/L (46-116) Total Protein 6.1 g/dL (6.4-8.2) Albumin 2.5 g/dL (3.4-5.0) Albumin/Globulin Ratio 0.7 (1.0-1.7) Laboratory Tests Test 05/17/19 05:30 White Blood Count 12.7 x10^3/uL (4.0-11.0) Red Blood Count 2.66 x10^6/uL (4.30-5.70) Hemoglobin 7.3 g/dL (13.0-17.5) Hematocrit 23.2 % (39.0-53.0) Mean Corpuscular Volume 87 fL (79-100) Mean Corpuscular Hemoglobin 28 pg (25-35) Mean Corpuscular Hemoglobin Concent 32 g/dL (31-37) Red Cell Distribution Width 22.2 % (11.5-14.5) Platelet Count 169 x10^3/uL (140-400) Neutrophils (%) (Auto) 91 % (31-73) Lymphocytes (%) (Auto) 2 % (24-48) Monocytes (%) (Auto) 5 % (0-9) Eosinophils (%) (Auto) 2 % (0-3) Basophils (%) (Auto) 1 % (0-3) Neutrophils # (Auto) 11.6 x10^3/uL (1.8-7.7) Lymphocytes # (Auto) 0.2 x10^3/uL (1.0-4.8) Monocytes # (Auto) 0.6 x10^3/uL (0.0-1.1) Eosinophils # (Auto) 0.3 x10^3/uL (0.0-0.7) Basophils # (Auto) 0.1 x10^3/uL (0.0-0.2) Prothrombin Time 31.7 SEC (11.7-14.0) Prothromb Time International Ratio 3.1 (0.8-1.1) Sodium Level 135 mmol/L (136-145) Potassium Level 5.2 mmol/L (3.5-5.1) Chloride Level 100 mmol/L (98-107) Carbon Dioxide Level 27 mmol/L (21-32) Anion Gap 8 (6-14) Blood Urea Nitrogen 83 mg/dL (8-26) Creatinine 3.9 mg/dL (0.7-1.3) Estimated GFR (Cockcroft-Gault) 15.0 BUN/Creatinine Ratio 21 (6-20) Glucose Level 143 mg/dL (70-99) Calcium Level 8.4 mg/dL (8.5-10.1) Total Bilirubin 0.9 mg/dL (0.2-1.0) Aspartate Amino Transf (AST/SGOT) 13 U/L (15-37) Alanine Aminotransferase (ALT/SGPT) < 6 U/L (16-63) Alkaline Phosphatase 86 U/L (46-116) Total Protein 6.1 g/dL (6.4-8.2) Albumin 2.5 g/dL (3.4-5.0) Albumin/Globulin Ratio 0.7 (1.0-1.7) Microbiology 05/16/19 Blood Culture - Preliminary, Resulted NO GROWTH AFTER 1 DAY Medications Current Medications Vancomycin HCl (Vanco Per Pharmacy) 1 each PRN DAILY PRN MC SEE COMMENTS Last administered on 05/16/19at 02:12; Start 05/15/19 at 23:00; Stop 05/17/19 at 06:52; Status DC Levofloxacin/ Dextrose 150 ml @ 100 mls/hr 1X ONCE IV Last administered on 05/16/19at 00:17; Start 05/15/19 at 23:30; Stop 05/16/19 at 00:59; Status DC Sodium Chloride 1,000 ml @ 1,000 mls/hr 1X ONCE IV ; Start 05/15/19 at 23:30; Stop 05/16/19 at 00:29; Status DC Sodium Chloride 1,000 ml @ 1,000 mls/hr 1X ONCE IV Last administered on 05/16/19at 00:17; Start 05/15/19 at 23:30; Stop 05/16/19 at 00:29; Status DC Sodium Chloride 1,000 ml @ 1,000 mls/hr 1X ONCE IV Last administered on 05/16/19at 00:17; Start 05/15/19 at 23:30; Stop 05/16/19 at 00:29; Status DC Vancomycin HCl 2 gm/Sodium Chloride 500 ml @ 250 mls/hr 1X ONCE IV Last administered on 05/16/19at 00:15; Start 05/16/19 at 00:00; Stop 05/16/19 at 01:59; Status DC Ondansetron HCl (Zofran) 4 mg PRN Q8HRS PRN IV NAUSEA/VOMITING 1ST CHOICE; Start 05/16/19 at 01:45; Stop 05/17/19 at 01:44; Status DC Vancomycin HCl 1.25 gm/Sodium Chloride 250 ml @ 167 mls/hr Q48H IV ; Start 05/18/19 at 00:00; Stop 05/17/19 at 06:52; Status DC Vancomycin HCl (Vancomycin Trough Level) 1 each 1X ONCE MC ; Start 05/19/19 at 23:30; Stop 05/17/19 at 07:19; Status DC Albumin Human 100 ml @ 100 mls/hr 1X ONCE IV Last administered on 05/16/19at 04:14; Start 05/16/19 at 04:30; Stop 05/16/19 at 05:29; Status DC Norepinephrine Bitartrate 250 ml @ 17.031 mls/ hr CONT PRN IV SEE I/O RECORD Last administered on 05/16/19at 04:21; Start 05/16/19 at 04:00 Info (FLU VACCINE SCREEN per RX) 1 each 1X ONCE MC ; Start 05/16/19 at 05:00; Stop 05/16/19 at 05:01; Status UNV Albumin Human 250 ml @ 125 mls/hr 1X ONCE IV Last administered on 05/16/19at 05:11; Start 05/16/19 at 05:30; Stop 05/16/19 at 07:29; Status DC Piperacillin Sod/ Tazobactam Sod 2.25 gm/Sodium Chloride 50 ml @ 100 mls/hr Q6HRS IV Last administered on 05/17/19at 06:16; Start 05/16/19 at 13:00 Linezolid/Dextrose 300 ml @ 300 mls/hr Q12HR IV ; Start 05/17/19 at 09:00 Active Scripts Active Novolog Flexpen (Insulin Aspart) 300 Units/3 Ml Insuln.pen 8 Units SQ TIDWMEALS Reported Trazodone Hcl 100 Mg Tablet 1 Tab PO QHS Tramadol Hcl 50 Mg Tablet 50 Mg PO Q8HRS Torsemide 20 Mg Tablet 100 Mg PO BID Temazepam 15 Mg Capsule 1 Cap PO QHS Sinemet Cr 25-100 Tablet (Carbidopa/Levodopa) 1 Each Tablet.er 1 Tab PO TID Simethicone 80 Mg Tab.chew 80 Mg PO PRN Q6HRS PRN Senna Plus 8.6-50 mg Tablet (Sennosides/Docusate Sodium) 1 Each Tablet 1 Each PO BID Renvela (Sevelamer Carbonate) 800 Mg Tablet 3 Tab PO TIDAC Protonix (Pantoprazole Sodium) 40 Mg Tablet.dr 40 Mg PO DAILYAC Pravastatin Sodium 20 Mg Tablet 1 Tab PO HS Potassium Chloride 20 Meq Tablet.er 2 Tab PO DAILY Klor-Con M20 (Potassium Chloride) 20 Meq Tab.er.prt 1 Tab PO PRN DAILY PRN Novolog (Insulin Aspart) 100 Unit/1 Ml Cartridge 8 Unit SQ TIDBFRMEAL NITROGLYCERIN SubLingual (Nitroglycerin) 0.4 Mg Tab.subl 1 Tab SL UD PRN Miralax (Polyethylene Glycol 3350) 17 Gm Powd.pack 1 Packet PO BID Metoprolol Succinate ( Xl ) (Metoprolol Succinate) 25 Mg Tab.er.24h 1 Tab PO DAILY Metolazone 5 Mg Tablet 1.5 Tab PO DAILY Metolazone 2.5 Mg Tablet 2.5 Mg PO PRN DAILY PRN Melatonin 3 Mg Tablet 2 Tab PO QHS Levothyroxine Sodium 125 Mcg Tablet 1 Tab PO DAILY Lantus Solostar (Insulin Glargine,Hum.rec.anlog) 100 Unit/1 Ml Insuln.pen 12 Unit SQ QHS Acidophilus (Lactobacillus Acidophilus) 1 Each Capsule 1 Each PO DAILY Glucose Gel (Dextrose) 38 Gm Gel..gram. 38 Gm PO PRN PRN Gabapentin (Gabapentin) 100 Mg Capsule 100 Mg PO TID Flonase Allergy Relief (Fluticasone Propionate) 9.9 Ml [place].susp 2 Sprays NS DAILY Fleet Enema (Na Phos,M-B/Na Phos,Di-Ba) 133 Ml Enema 133 Ml RC PRN PRN Ferrous Gluconate 240 Mg Tablet 240 Mg PO DAILY Uloric (Febuxostat) 80 Mg Tablet 1 Tab PO DAILY Cymbalta (Duloxetine Hcl) 60 Mg Capsule. 1 Cap PO HS Cymbalta (Duloxetine Hcl) 30 Mg Capsule. 1 Cap PO DAILY Vitamin B-12 (Cyanocobalamin (Vitamin B-12)) 1,000 Mcg Tablet 1 Tab PO DAILY Coumadin (Warfarin Sodium) 2 Mg Tablet 1 Tab PO DAILY Vitamin D3 (Cholecalciferol (Vitamin D3)) 5,000 Unit Tablet 1 Tab PO DAILY Buspirone Hcl 5 Mg Tablet 1 Tab PO BID Bisacodyl 10 Mg Supp.rect 10 Mg RC PRN DAILY PRN Tylenol (Acetaminophen) 325 Mg Tablet 2 Tab PO PRN Q6HRS PRN Sertraline Hcl 100 Mg Tablet 100 Mg PO DAILY Aspir 81 (Aspirin) 81 Mg Tablet. 1 Tab PO DAILY Vitals/I & O Vital Sign - Last 24 Hours 05/16/19 05/16/19 05/16/19 05/16/19 09:13 11:00 12:00 12:00 Pulse 68 68 68 Resp 16 16 16 B/P (MAP) 111/53 (72) 113/51 (71) 109/47 (67) Pulse Ox 100 100 100 O2 Delivery Nasal Cannula Nasal Cannula Nasal Cannula Nasal Cannula O2 Flow Rate 3.0 3.0 3.0 3.0 05/16/19 05/16/19 05/16/19 05/16/19 13:00 14:00 15:00 16:00 Pulse 68 68 70 68 Resp 16 16 16 16 B/P (MAP) 102/54 (70) 105/57 (73) 115/55 (75) 106/42 (63) Pulse Ox 100 100 100 100 O2 Delivery Nasal Cannula Nasal Cannula Nasal Cannula Nasal Cannula O2 Flow Rate 3.0 3.0 3.0 3.0 05/16/19 05/16/19 05/16/19 05/16/19 16:00 17:00 18:00 19:00 Temp 99.0 99.0 Pulse 74 68 66 Resp 16 16 21 B/P (MAP) 96/45 (62) 94/41 (58) 103/47 (65) Pulse Ox 100 100 93 O2 Delivery Nasal Cannula Nasal Cannula Nasal Cannula Nasal Cannula O2 Flow Rate 3.0 3.0 3.0 3.0 05/16/19 05/16/19 05/16/19 05/16/19 20:00 20:00 21:00 22:00 Pulse 68 68 68 Resp 18 17 16 B/P (MAP) 103/49 (67) 104/44 (64) 107/49 (68) Pulse Ox 100 100 100 O2 Delivery Room Air Nasal Cannula Room Air Room Air O2 Flow Rate 3.0 05/16/19 05/16/19 05/17/19 05/17/19 23:00 23:59 00:00 01:00 Temp 99.6 99.6 Pulse 74 74 68 Resp 18 15 B/P (MAP) 114/47 (69) 100/44 (62) 93/38 (56) Pulse Ox 100 93 97 O2 Delivery Room Air Nasal Cannula Room Air Room Air O2 Flow Rate 3.0 05/17/19 05/17/19 05/17/19 05/17/19 02:00 03:00 04:00 04:00 Temp 99.7 99.7 Pulse 68 70 70 Resp 18 B/P (MAP) 92/36 (54) 95/40 (58) 94/39 (57) Pulse Ox 93 93 95 O2 Delivery Room Air Room Air Room Air Nasal Cannula O2 Flow Rate 3.0 05/17/19 05/17/19 05:00 06:00 Pulse 68 69 Resp 17 16 B/P (MAP) 81/33 (49) 98/41 (60) Pulse Ox 94 93 O2 Delivery Room Air Room Air Intake and Output 05/16/19 05/16/19 05/17/19 15:00 23:00 07:00 Intake Total 250 ml 407 ml Output Total 110 ml 90 ml 90 ml Balance 140 ml 317 ml -90 ml STEPHANIE DUKE MD May 17, 2019 08:20
--- NOTE | 2019-05-17 09:44 | RAD ---
Examination: CT chest without contrast HISTORY: History of congestive heart failure, pneumonia COMPARISON: None available TECHNIQUE: Axial CT images of chest were performed without contrast. Coronal and sagittal reformats are performed Exposure: One or more of the following individualized dose reduction techniques were utilized for this examination: 1. Automated exposure control 2. Adjustment of the mA and/or kV according to patient size 3. Use of iterative reconstruction technique FINDINGS: The central airways are patent. Severe cardiomegaly. Diffuse coronary artery calcifications identified. Moderate aortic atherosclerosis.Moderate left pleural effusion with moderate size consolidation changes identified in the left lingula and left lower lobe of the lung likely pneumonia or atelectasis. Moderate prominent appearing bilateral interstitial lung markings. There are patchy airspace opacities identified in the right lung base. Moderate degenerative changes thoracic spine. Cholelithiasis. IMPRESSION: 1. Moderate left lower lobe lung consolidation with moderate size left pleural effusion identified. 2. Moderate prominent appearing bilateral interstitial lung markings likely congestive changes. 3. Cholelithiasis. Electronically signed by: Austen Biggs MD (05/17/2019 9:42 AM) [place] [id number]
--- NOTE | 2019-05-17 10:01 | PDOC ---
PULMONARY PROGRESS NOTES Subjective remains on rooma ir, on vasopressor for hypotension remains AMS/confused nrsing reports no overnight concerns Vitals Vital Signs Date Time Temp Pulse Resp B/P (MAP) Pulse Ox O2 Delivery O2 Flow Rate FiO2 05/17/19 08:00 70 24 112/69 (83) 98 Room Air 05/17/19 07:50 98.8 98.8 05/17/19 04:00 3.0 Comments unable to obtain 2/2 AMS ROS: No Increase Cough General: Alert, No acute distress Lungs: Other (decrease left base) Cardiovascular: S1, S2 Abdomen: Soft, Non-tender Neuro Exam: Alert Skin: Warm, Dry (Bilateral BKA ) Labs Laboratory Tests Test 05/15/19 23:10 05/16/19 00:32 05/16/19 00:41 05/16/19 00:48 White Blood Count 24.3 x10^3/uL (4.0-11.0) Red Blood Count 2.88 x10^6/uL (4.30-5.70) Hemoglobin 7.9 g/dL (13.0-17.5) Hematocrit 25.2 % (39.0-53.0) Mean Corpuscular Volume 87 fL (79-100) Mean Corpuscular Hemoglobin 28 pg (25-35) Mean Corpuscular Hemoglobin Concent 32 g/dL (31-37) Red Cell Distribution Width 22.2 % (11.5-14.5) Platelet Count 196 x10^3/uL (140-400) Neutrophils (%) (Auto) 94 % (31-73) Lymphocytes (%) (Auto) 1 % (24-48) Monocytes (%) (Auto) 5 % (0-9) Eosinophils (%) (Auto) 0 % (0-3) Basophils (%) (Auto) 1 % (0-3) Neutrophils # (Auto) 22.7 x10^3/uL (1.8-7.7) Lymphocytes # (Auto) 0.3 x10^3/uL (1.0-4.8) Monocytes # (Auto) 1.1 x10^3/uL (0.0-1.1) Eosinophils # (Auto) 0.0 x10^3/uL (0.0-0.7) Basophils # (Auto) 0.1 x10^3/uL (0.0-0.2) Segmented Neutrophils % 89 % (35-66) Band Neutrophils % 6 % (0-9) Lymphocytes % 1 % (24-48) Monocytes % 2 % (0-10) Eosinophils % 2 % (0-5) Toxic Granulation Slight Platelet Estimate Adequate (ADEQUATE) Hypochromasia Slight Anisocytosis Mod Ovalocytes Few Schistocytes Occ Prothrombin Time 27.4 SEC (11.7-14.0) Prothromb Time International Ratio 2.6 (0.8-1.1) Activated Partial Thromboplast Time 44 SEC (24-38) Sodium Level 133 mmol/L (136-145) Potassium Level 5.1 mmol/L (3.5-5.1) Chloride Level 96 mmol/L (98-107) Carbon Dioxide Level 32 mmol/L (21-32) Anion Gap 5 (6-14) Blood Urea Nitrogen 81 mg/dL (8-26) Creatinine 3.6 mg/dL (0.7-1.3) Estimated GFR (Cockcroft-Gault) 16.5 BUN/Creatinine Ratio 23 (6-20) Glucose Level 134 mg/dL (70-99) Lactic Acid Level 2.3 mmol/L (0.4-2.0) Calcium Level 8.8 mg/dL (8.5-10.1) Total Bilirubin 0.8 mg/dL (0.2-1.0) Direct Bilirubin 0.4 mg/dL (0.0-0.2) Aspartate Amino Transf (AST/SGOT) 14 U/L (15-37) Alanine Aminotransferase (ALT/SGPT) < 6 U/L (16-63) Alkaline Phosphatase 113 U/L (46-116) Total Protein 6.7 g/dL (6.4-8.2) Albumin 2.5 g/dL (3.4-5.0) Albumin/Globulin Ratio 0.6 (1.0-1.7) Procalcitonin 0.59 ng/mL (0.00-0.10) Ammonia 15 mcmol/L (11-34) Urine Collection Type Unknown Urine Color Yellow Urine Clarity Cloudy Urine pH 6.5 Urine Specific [place] 1.010 Urine Protein Negative mg/dL (NEG-TRACE) Urine Glucose (UA) Negative mg/dL (NEG) Urine Ketones (Stick) Negative mg/dL (NEG) Urine Blood Negative (NEG) Urine Nitrite Negative (NEG) Urine Bilirubin Negative (NEG) Urine Urobilinogen Dipstick 0.2 mg/dL (0.2 mg/dL) Urine Leukocyte Esterase Negative (NEG) Urine RBC 0 /HPF (0-2) Urine WBC 0 /HPF (0-4) Urine Squamous Epithelial Cells Few /LPF Urine Bacteria 0 /HPF (0-FEW) Urine Hyaline Casts Moderate /HPF Urine Mucus Mod /LPF O2 Saturation 94 % (92-99) Arterial Blood pH 7.41 (7.35-7.45) Arterial Blood pCO2 at Patient Temp 45 mmHg (35-46) Arterial Blood pO2 at Patient Temp 79 mmHg (65-108) Arterial Blood HCO3 28 mmol/L (21-28) Arterial Blood Base Excess 3 mmol/L (-3-3) Oxyhemoglobin 93.1 % Methemoglobin 0.4 % (0.0-1.9) Carbon Monoxide, Quantitative 0.9 % (0.0-1.9) FiO2 32 Test 05/16/19 02:25 05/16/19 03:05 05/17/19 05:30 Nasal Screen MRSA (PCR) Negative (Negative) Lactic Acid Level 1.4 mmol/L (0.4-2.0) White Blood Count 12.7 x10^3/uL (4.0-11.0) Red Blood Count 2.66 x10^6/uL (4.30-5.70) Hemoglobin 7.3 g/dL (13.0-17.5) Hematocrit 23.2 % (39.0-53.0) Mean Corpuscular Volume 87 fL (79-100) Mean Corpuscular Hemoglobin 28 pg (25-35) Mean Corpuscular Hemoglobin Concent 32 g/dL (31-37) Red Cell Distribution Width 22.2 % (11.5-14.5) Platelet Count 169 x10^3/uL (140-400) Neutrophils (%) (Auto) 91 % (31-73) Lymphocytes (%) (Auto) 2 % (24-48) Monocytes (%) (Auto) 5 % (0-9) Eosinophils (%) (Auto) 2 % (0-3) Basophils (%) (Auto) 1 % (0-3) Neutrophils # (Auto) 11.6 x10^3/uL (1.8-7.7) Lymphocytes # (Auto) 0.2 x10^3/uL (1.0-4.8) Monocytes # (Auto) 0.6 x10^3/uL (0.0-1.1) Eosinophils # (Auto) 0.3 x10^3/uL (0.0-0.7) Basophils # (Auto) 0.1 x10^3/uL (0.0-0.2) Prothrombin Time 31.7 SEC (11.7-14.0) Prothromb Time International Ratio 3.1 (0.8-1.1) Sodium Level 135 mmol/L (136-145) Potassium Level 5.2 mmol/L (3.5-5.1) Chloride Level 100 mmol/L (98-107) Carbon Dioxide Level 27 mmol/L (21-32) Anion Gap 8 (6-14) Blood Urea Nitrogen 83 mg/dL (8-26) Creatinine 3.9 mg/dL (0.7-1.3) Estimated GFR (Cockcroft-Gault) 15.0 BUN/Creatinine Ratio 21 (6-20) Glucose Level 143 mg/dL (70-99) Calcium Level 8.4 mg/dL (8.5-10.1) Total Bilirubin 0.9 mg/dL (0.2-1.0) Aspartate Amino Transf (AST/SGOT) 13 U/L (15-37) Alanine Aminotransferase (ALT/SGPT) < 6 U/L (16-63) Alkaline Phosphatase 86 U/L (46-116) Total Protein 6.1 g/dL (6.4-8.2) Albumin 2.5 g/dL (3.4-5.0) Albumin/Globulin Ratio 0.7 (1.0-1.7) Laboratory Tests Test 05/17/19 05:30 White Blood Count 12.7 x10^3/uL (4.0-11.0) Red Blood Count 2.66 x10^6/uL (4.30-5.70) Hemoglobin 7.3 g/dL (13.0-17.5) Hematocrit 23.2 % (39.0-53.0) Mean Corpuscular Volume 87 fL (79-100) Mean Corpuscular Hemoglobin 28 pg (25-35) Mean Corpuscular Hemoglobin Concent 32 g/dL (31-37) Red Cell Distribution Width 22.2 % (11.5-14.5) Platelet Count 169 x10^3/uL (140-400) Neutrophils (%) (Auto) 91 % (31-73) Lymphocytes (%) (Auto) 2 % (24-48) Monocytes (%) (Auto) 5 % (0-9) Eosinophils (%) (Auto) 2 % (0-3) Basophils (%) (Auto) 1 % (0-3) Neutrophils # (Auto) 11.6 x10^3/uL (1.8-7.7) Lymphocytes # (Auto) 0.2 x10^3/uL (1.0-4.8) Monocytes # (Auto) 0.6 x10^3/uL (0.0-1.1) Eosinophils # (Auto) 0.3 x10^3/uL (0.0-0.7) Basophils # (Auto) 0.1 x10^3/uL (0.0-0.2) Prothrombin Time 31.7 SEC (11.7-14.0) Prothromb Time International Ratio 3.1 (0.8-1.1) Sodium Level 135 mmol/L (136-145) Potassium Level 5.2 mmol/L (3.5-5.1) Chloride Level 100 mmol/L (98-107) Carbon Dioxide Level 27 mmol/L (21-32) Anion Gap 8 (6-14) Blood Urea Nitrogen 83 mg/dL (8-26) Creatinine 3.9 mg/dL (0.7-1.3) Estimated GFR (Cockcroft-Gault) 15.0 BUN/Creatinine Ratio 21 (6-20) Glucose Level 143 mg/dL (70-99) Calcium Level 8.4 mg/dL (8.5-10.1) Total Bilirubin 0.9 mg/dL (0.2-1.0) Aspartate Amino Transf (AST/SGOT) 13 U/L (15-37) Alanine Aminotransferase (ALT/SGPT) < 6 U/L (16-63) Alkaline Phosphatase 86 U/L (46-116) Total Protein 6.1 g/dL (6.4-8.2) Albumin 2.5 g/dL (3.4-5.0) Albumin/Globulin Ratio 0.7 (1.0-1.7) Medications Active Scripts Medications Dose Route/Sig Max Daily Dose Days Date Category Trazodone Hcl 100 Mg Tablet 1 Tab PO QHS 05/16/19 Reported Tramadol Hcl 50 Mg Tablet 50 Mg PO Q8HRS 05/16/19 Reported Torsemide 20 Mg Tablet 100 Mg PO BID 05/16/19 Reported Temazepam 15 Mg Capsule 1 Cap PO QHS 05/16/19 Reported Sinemet Cr 25-100 Tablet (Carbidopa/Levodopa) 1 Each Tablet.er 1 Tab PO TID 05/16/19 Reported Simethicone 80 Mg Tab.chew 80 Mg PO PRN Q6HRS PRN 05/16/19 Reported Senna Plus 8.6-50 mg Tablet (Sennosides/Docusate Sodium) 1 Each Tablet 1 Each PO BID 05/16/19 Reported Renvela (Sevelamer Carbonate) 800 Mg Tablet 3 Tab PO TIDAC 05/16/19 Reported Protonix (Pantoprazole Sodium) 40 Mg Tablet.dr 40 Mg PO DAILYAC 05/16/19 Reported Pravastatin Sodium 20 Mg Tablet 1 Tab PO HS 05/16/19 Reported Potassium Chloride 20 Meq Tablet.er 2 Tab PO DAILY 05/16/19 Reported Klor-Con M20 (Potassium Chloride) 20 Meq Tab.er.prt 1 Tab PO PRN DAILY PRN 05/16/19 Reported Novolog (Insulin Aspart) 100 Unit/1 Ml Cartridge 8 Unit SQ TIDBFRMEAL 05/16/19 Reported NITROGLYCERIN SubLingual (Nitroglycerin) 0.4 Mg Tab.subl 1 Tab SL UD PRN 05/16/19 Reported Miralax (Polyethylene Glycol 3350) 17 Gm Powd.pack 1 Packet PO BID 05/16/19 Reported Metoprolol Succinate ( Xl ) (Metoprolol Succinate) 25 Mg Tab.er.24h 1 Tab PO DAILY 05/16/19 Reported Metolazone 5 Mg Tablet 1.5 Tab PO DAILY 05/16/19 Reported Metolazone 2.5 Mg Tablet 2.5 Mg PO PRN DAILY PRN 05/16/19 Reported Melatonin 3 Mg Tablet 2 Tab PO QHS 05/16/19 Reported Levothyroxine Sodium 125 Mcg Tablet 1 Tab PO DAILY 05/16/19 Reported Lantus Solostar (Insulin Glargine,Hum.rec.anlog) 100 Unit/1 Ml Insuln.pen 12 Unit SQ QHS 05/16/19 Reported Acidophilus (Lactobacillus Acidophilus) 1 Each Capsule 1 Each PO DAILY 05/16/19 Reported Glucose Gel (Dextrose) 38 Gm Gel..gram. 38 Gm PO PRN PRN 05/16/19 Reported Gabapentin (Gabapentin) 100 Mg Capsule 100 Mg PO TID 05/16/19 Reported Flonase Allergy Relief (Fluticasone Propionate) 9.9 Ml [place].susp 2 Sprays NS DAILY 05/16/19 Reported Fleet Enema (Na Phos,M-B/Na Phos,Di-Ba) 133 Ml Enema 133 Ml RC PRN PRN 05/16/19 Reported Ferrous Gluconate 240 Mg Tablet 240 Mg PO DAILY 05/16/19 Reported Uloric (Febuxostat) 80 Mg Tablet 1 Tab PO DAILY 05/16/19 Reported Cymbalta (Duloxetine Hcl) 60 Mg Capsule.dr 1 Cap PO HS 05/16/19 Reported Cymbalta (Duloxetine Hcl) 30 Mg Capsule.dr 1 Cap PO DAILY 05/16/19 Reported Vitamin B-12 (Cyanocobalamin (Vitamin B-12)) 1,000 Mcg Tablet 1 Tab PO DAILY 05/16/19 Reported Coumadin (Warfarin Sodium) 2 Mg Tablet 1 Tab PO DAILY 05/16/19 Reported Vitamin D3 (Cholecalciferol (Vitamin D3)) 5,000 Unit Tablet 1 Tab PO DAILY 05/16/19 Reported Buspirone Hcl 5 Mg Tablet 1 Tab PO BID 05/16/19 Reported Bisacodyl 10 Mg Supp.rect 10 Mg RC PRN DAILY PRN 05/16/19 Reported Tylenol (Acetaminophen) 325 Mg Tablet 2 Tab PO PRN Q6HRS PRN 05/16/19 Reported Sertraline Hcl 100 Mg Tablet 100 Mg PO DAILY 03/08/16 Reported Aspir 81 (Aspirin) 81 Mg Tablet.dr 1 Tab PO DAILY 03/08/16 Reported Novolog Flexpen (Insulin Aspart) 300 Units/3 Ml Insuln.pen 8 Units SQ TIDWMEALS 06/19/[address] CHEST 1. Moderate left lower lobe lung consolidation with moderate size left pleural effusion identified. 2. Moderate prominent appearing bilateral interstitial lung markings likely congestive changes. 3. Cholelithiasis. Electronically signed by: Austen Biggs MD (05/17/2019 9:42 AM) [facility] Impression . 1. Dyspnea with acute hypoxic respiratory failure. Etiology likely interstitial edema. 2. Acute kidney injury on chronic kidney disease. 3. Abnormal chest x-ray with bilateral interstitial infiltrates with left-sided pleural effusion along with cardiomegaly c/w decompensated Systolic HF 4. Increased procalcitonin. ID following 5. Chronic anticoagulation 6. Cardiomyopathy EF 40-45% 7. Hypotension on vasopressors Plan . 1. Continue with antibiotic per ID. 2. Noncontrast CT chest reviewed. Monitor effusion for now, asymptomatic at present 3. Monitor white cell count. 4. EF 40-45% 5. Hold further IV fluids, albumin, and vasopressor for hypotension keep MAP above 65 , consider dobutamine 6. Monitor renal function. 7. Follow Neurology recommendations. 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 8. Follow nephrology recs .? may need HD Discussed with MARY WHITNEY MD May 17, 2019 10:01
--- NOTE | 2019-05-17 10:01 | RAD ---
EXAM: CT Head without IV contrast CLINICAL HISTORY: History of cerebellar infarct, follow-up COMPARISON: CT head 05/15/2019 TECHNIQUE: Routine CT of the head without contrast. Soft tissues and bone windows were reviewed. PQRS compliance statement - One or more of the following individualized dose reduction techniques were utilized for this study: 1. Automated exposure control 2. Adjustment of the mA and/or kV according to patient size 3. Use of iterative reconstruction technique FINDINGS: There is no evidence of hemorrhage, mass or extra-axial fluid collection. 2 cm region of hypoattenuation within the right cerebellum is more rounded on today's examination suggesting evolution of the right cerebellar infarct. Follow-up with MRI or continued follow-up with CT is recommended to exclude underlying mass given the rounded appearance. There is no mass effect or shift of the intracranial structures. The ventricles, basilar cisterns and cortical sulci are normal in size and configuration for the patients stated age. The calvarium demonstrates no evidence of fracture or focal lesion. Mastoid air cells are grossly clear. Left maxillary sinus opacification likely sinusitis, only partially visualized. Otherwise paranasal sinuses are clear. The visualized portions of the orbits are normal. Atherosclerotic calcifications of the intracranial internal carotid and vertebral arteries is seen. IMPRESSION: The right cerebellar hypoattenuating lesion is now more rounded, likely evolving cerebellar infarct. This can be further assessed with MRI or continued follow-up with CT to assess progression. Electronically signed by: Elgin Rice MD (05/17/2019 9:58 AM) [facility]
--- NOTE | 2019-05-17 11:51 | PDOC ---
[employer] PROGRESS NOTE Chief Complaint Chief Complaint Severe sepsis, metabolic encephalopathy History of Present Illness History of Present Illness 05/17/19 Pt was seen and examined today in the ICU Was sleeping No acute distress DW Nurse about pleural effusion on CXR 05/16/19 Pt was seen and examined today in the ICU Was conscious Responded to questions, but was unable to tell what year it was Vitals/I&O Vitals/I&O: Vital Signs Date Time Temp Pulse Resp B/P (MAP) Pulse Ox O2 Delivery O2 Flow Rate FiO2 05/17/19 08:00 70 24 112/69 (83) 98 Room Air 05/17/19 07:50 98.8 98.8 05/17/19 04:00 3.0 I & O 05/16/19 05/16/19 05/17/19 15:00 23:00 07:00 Intake Total 250 ml 407 ml Output Total 110 ml 90 ml 110 ml Balance 140 ml 317 ml -110 ml Physical Exam Physical Exam: VITALS: Within normal limits and are stable. GENERAL: No apparent distress. Alert and oriented. HEENT: Head is normocephalic, atraumatic, pupils were equally round and reactive to light and accommodation. NECK: Supple, no JVD, no thyromegaly was noted. LUNGS: Clear to auscultation in all lung al without rhonchi or wheezing. HEART: RRR, S1, S2 present. Peripheral pulses intact, no obvious murmurs were noted. ABDOMEN: Soft, nontender. Positive bowel sounds no organomegaly, normal bowel sounds. EXTREMITIES: Without any cyanosis, clubbing, or edema. Pedal pulses intact, Homans sign is negative. NEUROLOGIC: He is twitching. He barely awakens and talks briefly, in fact, I thought he was asleep all time, but he now awakens and tries to talk but he does not know the year or who the president is. PSYCHIATRIC: Normal affect, normal mood. Stable. SKIN: No ulcerations or rashes, good skin turgor, no jaundice. VASCULAR: Good capillary refill, neurovascular bundle appears to be intact. General: Alert, Cooperative, No acute distress, Other (oriented to person only) Heart: Regular rate, Normal S1, Normal S2, Other (3/6 systolic murmur ) Lungs: Clear Abdomen: Normal bowel sounds, Soft Extremities: No clubbing, Other (bilateral BKA, trace edema ) Labs Labs: Laboratory Tests Test 05/17/19 05:30 White Blood Count 12.7 x10^3/uL (4.0-11.0) Red Blood Count 2.66 x10^6/uL (4.30-5.70) Hemoglobin 7.3 g/dL (13.0-17.5) Hematocrit 23.2 % (39.0-53.0) Mean Corpuscular Volume 87 fL (79-100) Mean Corpuscular Hemoglobin 28 pg (25-35) Mean Corpuscular Hemoglobin Concent 32 g/dL (31-37) Red Cell Distribution Width 22.2 % (11.5-14.5) Platelet Count 169 x10^3/uL (140-400) Neutrophils (%) (Auto) 91 % (31-73) Lymphocytes (%) (Auto) 2 % (24-48) Monocytes (%) (Auto) 5 % (0-9) Eosinophils (%) (Auto) 2 % (0-3) Basophils (%) (Auto) 1 % (0-3) Neutrophils # (Auto) 11.6 x10^3/uL (1.8-7.7) Lymphocytes # (Auto) 0.2 x10^3/uL (1.0-4.8) Monocytes # (Auto) 0.6 x10^3/uL (0.0-1.1) Eosinophils # (Auto) 0.3 x10^3/uL (0.0-0.7) Basophils # (Auto) 0.1 x10^3/uL (0.0-0.2) Prothrombin Time 31.7 SEC (11.7-14.0) Prothromb Time International Ratio 3.1 (0.8-1.1) Sodium Level 135 mmol/L (136-145) Potassium Level 5.2 mmol/L (3.5-5.1) Chloride Level 100 mmol/L (98-107) Carbon Dioxide Level 27 mmol/L (21-32) Anion Gap 8 (6-14) Blood Urea Nitrogen 83 mg/dL (8-26) Creatinine 3.9 mg/dL (0.7-1.3) Estimated GFR (Cockcroft-Gault) 15.0 BUN/Creatinine Ratio 21 (6-20) Glucose Level 143 mg/dL (70-99) Calcium Level 8.4 mg/dL (8.5-10.1) Total Bilirubin 0.9 mg/dL (0.2-1.0) Aspartate Amino Transf (AST/SGOT) 13 U/L (15-37) Alanine Aminotransferase (ALT/SGPT) < 6 U/L (16-63) Alkaline Phosphatase 86 U/L (46-116) Total Protein 6.1 g/dL (6.4-8.2) Albumin 2.5 g/dL (3.4-5.0) Albumin/Globulin Ratio 0.7 (1.0-1.7) Review of Systems Review of Systems: Unable to obtain; patient is confused Assessment and Plan Assessmemt and Plan Problems Medical Problems: (1) Acute kidney injury superimposed on CKD Status: Acute (2) Acute respiratory failure with hypoxia Status: Acute (3) Chronic kidney disease, stage 4 (severe) Status: Acute (4) CVA (cerebral vascular accident) Status: Acute (5) Dyspnea Status: Acute (6) HCAP (healthcare-associated pneumonia) Status: Acute (7) Pleural effusion on left Status: Acute (8) Pulmonary edema Status: Acute (9) Severe sepsis Status: Acute Assessment Severe sepsis HCAP Pulmonary edema Chronic kidney disease - stage 4 (severe) CVA Left pleural effusion Metabolic encephalopathy related to sepsis Plan ICU monitoring Titrate off Levofed DVT prophylaxis Monitor swallowing Consult Dr. Serrano (pulmonology) for pleural effusion seen on CXR Comment Review of Relevant I have reviewed the following items nestor (where applicable) has been applied. Medications: Current Medications Medications (Trade) Dose Ordered Sig/Adithya Route PRN Reason Start Time Stop Time Status Last Admin Dose Admin Piperacillin Sod/ Tazobactam Sod 2.25 gm/Sodium Chloride 50 ml @ 100 mls/hr Q6HRS IV 05/16/19 13:00 05/17/19 06:16 Linezolid/Dextrose 300 ml @ 300 mls/hr Q12HR IV 05/17/19 09:00 05/17/19 09:48 NIKKO MYERS III DO May 17, 2019 11:51
--- NOTE | 2019-05-17 13:08 | NUR ---
Unable to perform NIH stroke scale on this pt d/t his inability to follow commands. Pt is able to move all extremities, pupils are equal and reactive. Speech is clear but is disoriented. Pt says random words. Pt also is a bilat AKA and is able to move stumps.
--- NOTE | 2019-05-17 13:51 | PDOC ---
CARDIO Progress Notes Date and Time Date of Service 05/17/2019 Time of Evaluation 1330 Subjective Subjective: Other (confuse) Vitals Vitals Vital Signs Date Time Temp Pulse Resp B/P (MAP) Pulse Ox O2 Delivery O2 Flow Rate FiO2 05/17/19 08:00 70 24 112/69 (83) 98 Room Air 05/17/19 07:50 98.8 98.8 05/17/19 04:00 3.0 Weight Weight [ ] Input and Output Intake and Output Intake and Output 05/17/19 07:00 Intake Total 657 ml Output Total 310 ml Balance 347 ml Intake Oral 0 ml IV Total 657 ml Output Urine Total 310 ml Laboratory Labs Laboratory Tests Test 05/17/19 05:30 White Blood Count 12.7 x10^3/uL (4.0-11.0) Red Blood Count 2.66 x10^6/uL (4.30-5.70) Hemoglobin 7.3 g/dL (13.0-17.5) Hematocrit 23.2 % (39.0-53.0) Mean Corpuscular Volume 87 fL (79-100) Mean Corpuscular Hemoglobin 28 pg (25-35) Mean Corpuscular Hemoglobin Concent 32 g/dL (31-37) Red Cell Distribution Width 22.2 % (11.5-14.5) Platelet Count 169 x10^3/uL (140-400) Neutrophils (%) (Auto) 91 % (31-73) Lymphocytes (%) (Auto) 2 % (24-48) Monocytes (%) (Auto) 5 % (0-9) Eosinophils (%) (Auto) 2 % (0-3) Basophils (%) (Auto) 1 % (0-3) Neutrophils # (Auto) 11.6 x10^3/uL (1.8-7.7) Lymphocytes # (Auto) 0.2 x10^3/uL (1.0-4.8) Monocytes # (Auto) 0.6 x10^3/uL (0.0-1.1) Eosinophils # (Auto) 0.3 x10^3/uL (0.0-0.7) Basophils # (Auto) 0.1 x10^3/uL (0.0-0.2) Prothrombin Time 31.7 SEC (11.7-14.0) Prothromb Time International Ratio 3.1 (0.8-1.1) Sodium Level 135 mmol/L (136-145) Potassium Level 5.2 mmol/L (3.5-5.1) Chloride Level 100 mmol/L (98-107) Carbon Dioxide Level 27 mmol/L (21-32) Anion Gap 8 (6-14) Blood Urea Nitrogen 83 mg/dL (8-26) Creatinine 3.9 mg/dL (0.7-1.3) Estimated GFR (Cockcroft-Gault) 15.0 BUN/Creatinine Ratio 21 (6-20) Glucose Level 143 mg/dL (70-99) Calcium Level 8.4 mg/dL (8.5-10.1) Total Bilirubin 0.9 mg/dL (0.2-1.0) Aspartate Amino Transf (AST/SGOT) 13 U/L (15-37) Alanine Aminotransferase (ALT/SGPT) < 6 U/L (16-63) Alkaline Phosphatase 86 U/L (46-116) Total Protein 6.1 g/dL (6.4-8.2) Albumin 2.5 g/dL (3.4-5.0) Albumin/Globulin Ratio 0.7 (1.0-1.7) Microbiology Micro Microbiology 05/16/19 Blood Culture - Preliminary, Resulted NO GROWTH AFTER 1 DAY Physical Exam HEENT: Neck Supple W Full Motion Chest: Symmetric LUNGS: Clear to Auscultation Heart: RRR (paced) Abdomen: Soft N/T Extremities: Other (2+ bilateral LE pitting edema) Neurology: alert, confused Assessment Assessment 1. Sepsis with possible pneumonia: ID following 2. Metabolic encephalopathy: possible CVA? gross hand tremors. Neurology following. Remains confuse, unknown baseline 3. Acute respiratory failure with acute CHF and pleural effusion 4. 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 CAD s/p CABG 03/06 with MINOR to LAD, SVG to RCA, seq SVG to diag and OM. Follows with Dr. Ordonez with MAC 6. ICM s/o AICD/CRTD ([employer]), paced rhythm with underlying afib 7 ABBY on CKD; uremic, Cr worse at 3.9, oliguric 8. Hypertension: better 9. Hyperlipidemia 10. Chronic AFIB 11. Diabetes, II 12. Anemia of chronic disease 13. Hypothyroidism Recommendations 1. IV lasix x1, Consult nephrology 2. Titrate off levophed per BP trend 3. INR at 3.1, if no contraindication per neuro then could restart OAC. Hold coumadin for now. 4. Continue secondary prevention if able to swallow. 5. Hold BP meds, Supportive care. MELINA GREER STRUCTURAL WORKER May 17, 2019 13:51
[2019-05-17] MEDS ORDERED: FUROSEMIDE 40 MG/4 ML VIAL. IVP ONE (15:45)
--- NOTE | 2019-05-17 16:28 | PDOC2 ---
CONSULT Date of Consult Date of Consult DATE: 05/17/19 TIME: 16:06 Reason for Consult Reason for Consult: ABBY History of Present Illness Reason for Visit: Pt is a 78-year-old CM , who is a long term resident at [facility], has a history of osteomyelitis of the right first distal toe. He was brought to [facility] on 05/16/2019 to the nursing facility secondary to altered mental status. On arrival to the ER, he is arousable to painful stimuli only. He had a systolic pressure in the 70s. White blood cell count was elevated at 24.3. Glucose was 134. Creatinine was 3.6. Urinalysis was not consistent with urinary tract infection. Chest x-ray has some congestive heart failure with pulmonary interstitial edema and dense opacity in the left lower lobe. In the ICU pressures did drop down into the 60s/30s. He is on Levophed. Currently he is on Room air. Has Garcia, UOP 20-30/hr . Recd IV Lasix x1 per cardiology Hx of recent Stroke, Hx obtained from chart review . He was seen by Dr. Jolly in 2016 Past Medical History Cardiovascular: AFIB, CAD, CHF, HTN, Hyperlipidemia, Other (atrial tachycardia, PAD ) Pulmonary: No pertinent hx CENTRAL NERVOUS SYSTEM: Periperal neuropathy GI: Constipation Heme/Onc: Anemia NOS Hepatobiliary: No pertinent hx Psych: Depression Musculoskeletal: Osteoarthritis Rheumatologic: Gout Renal/: Chronic renal insuff Endocrine: Diabetes, Hypothyroidism Dermatology: Basal cell Past Surgical History Past Surgical History: Pacemaker (AICD ), CABG, Hernia Repair, Other (AV fistula, bilateral BKA) Family History Family History: Diabetes, Heart Disease Social History No ALCOHOL: none Drugs: None Lives: Longterm Domestic Violence: Neg Current Problem List Problem List Problems Medical Problems: (1) Acute kidney injury superimposed on CKD Status: Acute (2) Acute respiratory failure with hypoxia Status: Acute (3) Chronic kidney disease, stage 4 (severe) Status: Acute (4) CVA (cerebral vascular accident) Status: Acute (5) Dyspnea Status: Acute (6) HCAP (healthcare-associated pneumonia) Status: Acute (7) Pleural effusion on left Status: Acute (8) Pulmonary edema Status: Acute (9) Severe sepsis Status: Acute Current Medications Current Medications Current Medications Vancomycin HCl (Vanco Per Pharmacy) 1 each PRN DAILY PRN MC SEE COMMENTS Last administered on 05/16/19at 02:12; Start 05/15/19 at 23:00; Stop 05/17/19 at 06:52; Status DC Levofloxacin/ Dextrose 150 ml @ 100 mls/hr 1X ONCE IV Last administered on at 00:17; Start 05/15/19 at 23:30; Stop 05/16/19 at 00:59; Status DC Sodium Chloride 1,000 ml @ 1,000 mls/hr 1X ONCE IV ; Start 05/15/19 at 23:30; Stop 05/16/19 at 00:29; Status DC Sodium Chloride 1,000 ml @ 1,000 mls/hr 1X ONCE IV Last administered on 05/16/19at 00:17; Start 05/15/19 at 23:30; Stop 05/16/19 at 00:29; Status DC Sodium Chloride 1,000 ml @ 1,000 mls/hr 1X ONCE IV Last administered on 05/16/19at 00:17; Start 05/15/19 at 23:30; Stop 05/16/19 at 00:29; Status DC Vancomycin HCl 2 gm/Sodium Chloride 500 ml @ 250 mls/hr 1X ONCE IV Last administered on 05/16/19at 00:15; Start 05/16/19 at 00:00; Stop 05/16/19 at 01:59; Status DC Ondansetron HCl (Zofran) 4 mg PRN Q8HRS PRN IV NAUSEA/VOMITING 1ST CHOICE; Start 05/16/19 at 01:45; Stop 05/17/19 at 01:44; Status DC Vancomycin HCl 1.25 gm/Sodium Chloride 250 ml @ 167 mls/hr Q48H IV ; Start 05/18/19 at 00:00; Stop 05/17/19 at 06:52; Status DC Vancomycin HCl (Vancomycin Trough Level) 1 each 1X ONCE MC ; Start 05/19/19 at 23:30; Stop 05/17/19 at 07:19; Status DC Albumin Human 100 ml @ 100 mls/hr 1X ONCE IV Last administered on 05/16/19at 04:14; Start 05/16/19 at 04:30; Stop 05/16/19 at 05:29; Status DC Norepinephrine Bitartrate 250 ml @ 17.031 mls/ hr CONT PRN IV SEE I/O RECORD Last administered on 05/16/19at 04:21; Start 05/16/19 at 04:00 Info (FLU VACCINE SCREEN per RX) 1 each 1X ONCE MC ; Start 05/16/19 at 05:00; Stop 05/16/19 at 05:01; Status UNV Albumin Human 250 ml @ 125 mls/hr 1X ONCE IV Last administered on 05/16/19at 05:11; Start 05/16/19 at 05:30; Stop 05/16/19 at 07:29; Status DC Piperacillin Sod/ Tazobactam Sod 2.25 gm/Sodium Chloride 50 ml @ 100 mls/hr Q6HRS IV Last administered on 05/17/19at 12:58; Start 05/16/19 at 13:00 Linezolid/Dextrose 300 ml @ 300 mls/hr Q12HR IV Last administered on 05/17/19at 09:48; Start 05/17/19 at 09:00 Furosemide (Lasix) 40 mg 1X ONCE IVP Last administered on 05/17/19at 15:47; Start 05/17/19 at 15:45; Stop 05/17/19 at 15:46; Status DC Active Scripts Active Novolog Flexpen (Insulin Aspart) 300 Units/3 Ml Insuln.pen 8 Units SQ TIDWMEALS Reported Trazodone Hcl 100 Mg Tablet 1 Tab PO QHS Tramadol Hcl 50 Mg Tablet 50 Mg PO Q8HRS Torsemide 20 Mg Tablet 100 Mg PO BID Temazepam 15 Mg Capsule 1 Cap PO QHS Sinemet Cr 25-100 Tablet (Carbidopa/Levodopa) 1 Each Tablet.er 1 Tab PO TID Simethicone 80 Mg Tab.chew 80 Mg PO PRN Q6HRS PRN Senna Plus 8.6-50 mg Tablet (Sennosides/Docusate Sodium) 1 Each Tablet 1 Each PO BID Renvela (Sevelamer Carbonate) 800 Mg Tablet 3 Tab PO TIDAC Protonix (Pantoprazole Sodium) 40 Mg Tablet.dr 40 Mg PO DAILYAC Pravastatin Sodium 20 Mg Tablet 1 Tab PO HS Potassium Chloride 20 Meq Tablet.er 2 Tab PO DAILY Klor-Con M20 (Potassium Chloride) 20 Meq Tab.er.prt 1 Tab PO PRN DAILY PRN Novolog (Insulin Aspart) 100 Unit/1 Ml Cartridge 8 Unit SQ TIDBFRMEAL NITROGLYCERIN SubLingual (Nitroglycerin) 0.4 Mg Tab.subl 1 Tab SL UD PRN Miralax (Polyethylene Glycol 3350) 17 Gm Powd.pack 1 Packet PO BID Metoprolol Succinate ( Xl ) (Metoprolol Succinate) 25 Mg Tab.er.24h 1 Tab PO DAILY Metolazone 5 Mg Tablet 1.5 Tab PO DAILY Metolazone 2.5 Mg Tablet 2.5 Mg PO PRN DAILY PRN Melatonin 3 Mg Tablet 2 Tab PO QHS Levothyroxine Sodium 125 Mcg Tablet 1 Tab PO DAILY Lantus Solostar (Insulin Glargine,Hum.rec.anlog) 100 Unit/1 Ml Insuln.pen 12 Unit SQ QHS Acidophilus (Lactobacillus Acidophilus) 1 Each Capsule 1 Each PO DAILY Glucose Gel (Dextrose) 38 Gm Gel..gram. 38 Gm PO PRN PRN Gabapentin (Gabapentin) 100 Mg Capsule 100 Mg PO TID Flonase Allergy Relief (Fluticasone Propionate) 9.9 Ml [place].susp 2 Sprays NS DAILY Fleet Enema (Na Phos,M-B/Na Phos,Di-Ba) 133 Ml Enema 133 Ml RC PRN PRN Ferrous Gluconate 240 Mg Tablet 240 Mg PO DAILY Uloric (Febuxostat) 80 Mg Tablet 1 Tab PO DAILY Cymbalta (Duloxetine Hcl) 60 Mg Capsule.dr 1 Cap PO HS Cymbalta (Duloxetine Hcl) 30 Mg Capsule.dr 1 Cap PO DAILY Vitamin B-12 (Cyanocobalamin (Vitamin B-12)) 1,000 Mcg Tablet 1 Tab PO DAILY Coumadin (Warfarin Sodium) 2 Mg Tablet 1 Tab PO DAILY Vitamin D3 (Cholecalciferol (Vitamin D3)) 5,000 Unit Tablet 1 Tab PO DAILY Buspirone Hcl 5 Mg Tablet 1 Tab PO BID Bisacodyl 10 Mg Supp.rect 10 Mg RC PRN DAILY PRN Tylenol (Acetaminophen) 325 Mg Tablet 2 Tab PO PRN Q6HRS PRN Sertraline Hcl 100 Mg Tablet 100 Mg PO DAILY Aspir 81 (Aspirin) 81 Mg Tablet.dr 1 Tab PO DAILY Allergies Allergies: Coded Allergies: bumetanide (Verified Allergy, Intermediate, 05/17/19) TOLERATES FUROSEMIDE cephalexin (Verified Allergy, Intermediate, 05/16/19) HAS TOLERATED MERREM AND ZOSYN metformin (Verified Allergy, Intermediate, 05/31/18) ROS Review of System Unable to obtain Physical Exam Physical Exam GENERAL: NAD HEEN-OM moist . On RA NECK: Supple. HEART: S1, S2 with a 2/6 murmur. Pacemaker without signs of complications. ABDOMEN: Soft, nontender. GENITOURINARY: Has a Garcia in place. EXTREMITIES: Bilateral lower extremity BKAs, No edema SKIN: No rash NEUROLOGIC: Recent Stroke, doesnt answer questions Vital Signs Vital Signs Date Time Temp Pulse Resp B/P (MAP) Pulse Ox O2 Delivery O2 Flow Rate FiO2 05/17/19 15:00 69 18 128/37 (67) 96 Room Air 05/17/19 12:00 98.7 98.7 05/17/19 04:00 3.0 Assessment & Plan ABBY - ATN suspect sec to Sepsis/ Hypotension UA unremarkable REnal US ordered IVF boluses if BP stays low Supportive care, strict I/O , daily weight Monitor , avoid nephrotoxins Hyperkalemia- mild Sepsis with possible pneumonia: ID following CKD STAGE 3- at least since 2011, no prior labs Reviewed records from our office ,Saw Dr. Jolly in 2016 Baseline Cr 1.5-2.2 (in 2017) Lt pleural effusion - per card/Pulm Metabolic encephalopathy: Hx of CVA p Neurology following. 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% S/P IV Lasix 1 dose per cardiology ICM s/o AICD/CRTD , paced rhythm with underlying afib CAD s/p CABG 03/06 Chronic AFIB Diabetes, II Anemia of chronic disease- Noted drop in Hgb Defer to primary Labs Labs Laboratory Tests Test 05/15/19 23:10 05/16/19 00:32 05/16/19 00:41 05/16/19 00:48 White Blood Count 24.3 x10^3/uL (4.0-11.0) Red Blood Count 2.88 x10^6/uL (4.30-5.70) Hemoglobin 7.9 g/dL (13.0-17.5) Hematocrit 25.2 % (39.0-53.0) Mean Corpuscular Volume 87 fL (79-100) Mean Corpuscular Hemoglobin 28 pg (25-35) Mean Corpuscular Hemoglobin Concent 32 g/dL (31-37) Red Cell Distribution Width 22.2 % (11.5-14.5) Platelet Count 196 x10^3/uL (140-400) Neutrophils (%) (Auto) 94 % (31-73) Lymphocytes (%) (Auto) 1 % (24-48) Monocytes (%) (Auto) 5 % (0-9) Eosinophils (%) (Auto) 0 % (0-3) Basophils (%) (Auto) 1 % (0-3) Neutrophils # (Auto) 22.7 x10^3/uL (1.8-7.7) Lymphocytes # (Auto) 0.3 x10^3/uL (1.0-4.8) Monocytes # (Auto) 1.1 x10^3/uL (0.0-1.1) Eosinophils # (Auto) 0.0 x10^3/uL (0.0-0.7) Basophils # (Auto) 0.1 x10^3/uL (0.0-0.2) Segmented Neutrophils % 89 % (35-66) Band Neutrophils % 6 % (0-9) Lymphocytes % 1 % (24-48) Monocytes % 2 % (0-10) Eosinophils % 2 % (0-5) Toxic Granulation Slight Platelet Estimate Adequate (ADEQUATE) Hypochromasia Slight Anisocytosis Mod Ovalocytes Few Schistocytes Occ Prothrombin Time 27.4 SEC (11.7-14.0) Prothromb Time International Ratio 2.6 (0.8-1.1) Activated Partial Thromboplast Time 44 SEC (24-38) Sodium Level 133 mmol/L (136-145) Potassium Level 5.1 mmol/L (3.5-5.1) Chloride Level 96 mmol/L (98-107) Carbon Dioxide Level 32 mmol/L (21-32) Anion Gap 5 (6-14) Blood Urea Nitrogen 81 mg/dL (8-26) Creatinine 3.6 mg/dL (0.7-1.3) Estimated GFR (Cockcroft-Gault) 16.5 BUN/Creatinine Ratio 23 (6-20) Glucose Level 134 mg/dL (70-99) Lactic Acid Level 2.3 mmol/L (0.4-2.0) Calcium Level 8.8 mg/dL (8.5-10.1) Total Bilirubin 0.8 mg/dL (0.2-1.0) Direct Bilirubin 0.4 mg/dL (0.0-0.2) Aspartate Amino Transf (AST/SGOT) 14 U/L (15-37) Alanine Aminotransferase (ALT/SGPT) < 6 U/L (16-63) Alkaline Phosphatase 113 U/L (46-116) Total Protein 6.7 g/dL (6.4-8.2) Albumin 2.5 g/dL (3.4-5.0) Albumin/Globulin Ratio 0.6 (1.0-1.7) Procalcitonin 0.59 ng/mL (0.00-0.10) Ammonia 15 mcmol/L (11-34) Urine Collection Type Unknown Urine Color Yellow Urine Clarity Cloudy Urine pH 6.5 Urine Specific [place] 1.010 Urine Protein Negative mg/dL (NEG-TRACE) Urine Glucose (UA) Negative mg/dL (NEG) Urine Ketones (Stick) Negative mg/dL (NEG) Urine Blood Negative (NEG) Urine Nitrite Negative (NEG) Urine Bilirubin Negative (NEG) Urine Urobilinogen Dipstick 0.2 mg/dL (0.2 mg/dL) Urine Leukocyte Esterase Negative (NEG) Urine RBC 0 /HPF (0-2) Urine WBC 0 /HPF (0-4) Urine Squamous Epithelial Cells Few /LPF Urine Bacteria 0 /HPF (0-FEW) Urine Hyaline Casts Moderate /HPF Urine Mucus Mod /LPF O2 Saturation 94 % (92-99) Arterial Blood pH 7.41 (7.35-7.45) Arterial Blood pCO2 at Patient Temp 45 mmHg (35-46) Arterial Blood pO2 at Patient Temp 79 mmHg (65-108) Arterial Blood HCO3 28 mmol/L (21-28) Arterial Blood Base Excess 3 mmol/L (-3-3) Oxyhemoglobin 93.1 % Methemoglobin 0.4 % (0.0-1.9) Carbon Monoxide, Quantitative 0.9 % (0.0-1.9) FiO2 32 Test 05/16/19 02:25 05/16/19 03:05 05/17/19 05:30 Nasal Screen MRSA (PCR) Negative (Negative) Lactic Acid Level 1.4 mmol/L (0.4-2.0) White Blood Count 12.7 x10^3/uL (4.0-11.0) Red Blood Count 2.66 x10^6/uL (4.30-5.70) Hemoglobin 7.3 g/dL (13.0-17.5) Hematocrit 23.2 % (39.0-53.0) Mean Corpuscular Volume 87 fL (79-100) Mean Corpuscular Hemoglobin 28 pg (25-35) Mean Corpuscular Hemoglobin Concent 32 g/dL (31-37) Red Cell Distribution Width 22.2 % (11.5-14.5) Platelet Count 169 x10^3/uL (140-400) Neutrophils (%) (Auto) 91 % (31-73) Lymphocytes (%) (Auto) 2 % (24-48) Monocytes (%) (Auto) 5 % (0-9) Eosinophils (%) (Auto) 2 % (0-3) Basophils (%) (Auto) 1 % (0-3) Neutrophils # (Auto) 11.6 x10^3/uL (1.8-7.7) Lymphocytes # (Auto) 0.2 x10^3/uL (1.0-4.8) Monocytes # (Auto) 0.6 x10^3/uL (0.0-1.1) Eosinophils # (Auto) 0.3 x10^3/uL (0.0-0.7) Basophils # (Auto) 0.1 x10^3/uL (0.0-0.2) Prothrombin Time 31.7 SEC (11.7-14.0) Prothromb Time International Ratio 3.1 (0.8-1.1) Sodium Level 135 mmol/L (136-145) Potassium Level 5.2 mmol/L (3.5-5.1) Chloride Level 100 mmol/L (98-107) Carbon Dioxide Level 27 mmol/L (21-32) Anion Gap 8 (6-14) Blood Urea Nitrogen 83 mg/dL (8-26) Creatinine 3.9 mg/dL (0.7-1.3) Estimated GFR (Cockcroft-Gault) 15.0 BUN/Creatinine Ratio 21 (6-20) Glucose Level 143 mg/dL (70-99) Calcium Level 8.4 mg/dL (8.5-10.1) Total Bilirubin 0.9 mg/dL (0.2-1.0) Aspartate Amino Transf (AST/SGOT) 13 U/L (15-37) Alanine Aminotransferase (ALT/SGPT) < 6 U/L (16-63) Alkaline Phosphatase 86 U/L (46-116) Total Protein 6.1 g/dL (6.4-8.2) Albumin 2.5 g/dL (3.4-5.0) Albumin/Globulin Ratio 0.7 (1.0-1.7) Laboratory Tests Test 05/17/19 05:30 White Blood Count 12.7 x10^3/uL (4.0-11.0) Red Blood Count 2.66 x10^6/uL (4.30-5.70) Hemoglobin 7.3 g/dL (13.0-17.5) Hematocrit 23.2 % (39.0-53.0) Mean Corpuscular Volume 87 fL (79-100) Mean Corpuscular Hemoglobin 28 pg (25-35) Mean Corpuscular Hemoglobin Concent 32 g/dL (31-37) Red Cell Distribution Width 22.2 % (11.5-14.5) Platelet Count 169 x10^3/uL (140-400) Neutrophils (%) (Auto) 91 % (31-73) Lymphocytes (%) (Auto) 2 % (24-48) Monocytes (%) (Auto) 5 % (0-9) Eosinophils (%) (Auto) 2 % (0-3) Basophils (%) (Auto) 1 % (0-3) Neutrophils # (Auto) 11.6 x10^3/uL (1.8-7.7) Lymphocytes # (Auto) 0.2 x10^3/uL (1.0-4.8) Monocytes # (Auto) 0.6 x10^3/uL (0.0-1.1) Eosinophils # (Auto) 0.3 x10^3/uL (0.0-0.7) Basophils # (Auto) 0.1 x10^3/uL (0.0-0.2) Prothrombin Time 31.7 SEC (11.7-14.0) Prothromb Time International Ratio 3.1 (0.8-1.1) Sodium Level 135 mmol/L (136-145) Potassium Level 5.2 mmol/L (3.5-5.1) Chloride Level 100 mmol/L (98-107) Carbon Dioxide Level 27 mmol/L (21-32) Anion Gap 8 (6-14) Blood Urea Nitrogen 83 mg/dL (8-26) Creatinine 3.9 mg/dL (0.7-1.3) Estimated GFR (Cockcroft-Gault) 15.0 BUN/Creatinine Ratio 21 (6-20) Glucose Level 143 mg/dL (70-99) Calcium Level 8.4 mg/dL (8.5-10.1) Total Bilirubin 0.9 mg/dL (0.2-1.0) Aspartate Amino Transf (AST/SGOT) 13 U/L (15-37) Alanine Aminotransferase (ALT/SGPT) < 6 U/L (16-63) Alkaline Phosphatase 86 U/L (46-116) Total Protein 6.1 g/dL (6.4-8.2) Albumin 2.5 g/dL (3.4-5.0) Albumin/Globulin Ratio 0.7 (1.0-1.7) Review All relevant outside records, renal labs, imaging studies, telemetry/EKG's were reviewed. Images Images CT chest--\ 1. Moderate left lower lobe lung consolidation with moderate size left pleural effusion identified. 2. Moderate prominent appearing bilateral interstitial lung markings likely congestive changes. 3. Cholelithiasis. ANTHONY ORDAZ MD May 17, 2019 16:28
--- NOTE | 2019-05-17 17:20 | RAD ---
Examination: Ultrasound kidneys HISTORY: History of acute renal insufficiency COMPARISON: None available FINDINGS: The right kidney measures 10.6 x 5.0 x 5.6 cm. The left kidney measures 11.7 x 5.1 x 5.3 cm. Examination limited due to patient body habitus. Garcia catheter identified within the bladder. No evidence of hydronephrosis. IMPRESSION: Limited examination due to patient body habitus. No evidence of hydronephrosis. Electronically signed by: Austen Biggs MD (05/17/2019 5:17 PM) [place] [id number]
[2019-05-18] VITALS (18 sets, daily range): BP systolic 84–144; BP diastolic 32–72
[2019-05-18] MEDS ORDERED: VANCOMYCIN 1.25 GM in IV NORMAL SALINE 250ML 250 ML IV SCH ×2
[2019-05-18] MEDS: PIPERACILLIN/TAZOBACTAM 2.25 GM in IV NORMAL SALINE 50ML 50 ML IV SCH ×4 (01:04→17:44)
[2019-05-18 05:56] LABS: BASO # 0.1 x10^3/uL (0.0-0.2); BASO % 1 % (0-3); EOS # 0.3 x10^3/uL (0.0-0.7); EOS % 2 % (0-3); HEMATOCRIT 23.7 % (39.0-53.0); HEMOGLOBIN 7.5 g/dL (13.0-17.5); LYMPH # 0.3 x10^3/uL (1.0-4.8); LYMPH % 2 % (24-48); MEAN CORPUSCULAR HEMOGLOBIN 28 pg (25-35); MEAN CORPUSCULAR HGB CONC 32 g/dL (31-37); MEAN CORPUSCULAR VOLUME 87 fL (79-100); MONO # 0.8 x10^3/uL (0.0-1.1); MONO % 7 % (0-9); NEUT # 10.1 x10^3/uL (1.8-7.7); NEUT % 87 % (31-73); PLATELET COUNT 175 x10^3/uL (140-400); RED BLOOD COUNT 2.73 x10^6/uL (4.30-5.70); RED CELL DISTRIBUTION WIDTH 22.4 % (11.5-14.5); WHITE BLOOD COUNT 11.6 x10^3/uL (4.0-11.0)
[2019-05-18 06:58] LABS: CALCIUM 8.5 mg/dL (8.5-10.1); CREATININE 3.8 mg/dL (0.7-1.3); GFR 15.5; POTASSIUM 4.2 mmol/L (3.5-5.1)
--- NOTE | 2019-05-18 07:13 | PDOC ---
Infectious Disease Note Subjective Subjective States he is ok. Feels better No F/C/S/SOA/pain/N/VD Arm is ok ROS ROS o/w neg Vital Sign Vital Signs Vital Signs Date Time Temp Pulse Resp B/P (MAP) Pulse Ox O2 Delivery O2 Flow Rate FiO2 05/18/19 06:00 66 20 84/45 (58) 95 Room Air 05/18/19 04:00 99.4 99.4 Physical Exam PHYSICAL EXAM CONSTITUTIONAL: Alert and in NAD HEENT: His conjunctivae are normal. OC/OP- clean NECK: Supple. No JVD. Right IJ without signs of any complications. HEART: S1, S2 with a 2/6 murmur. Pacemaker without signs of complications. ABDOMEN: Soft, nontender. No guarding. GENITOURINARY: Has a [employer] in place. EXTREMITIES: Bilateral lower extremity BKAs, without any wounds. His right upper extremity has area of erythema and warmth that has improved and is drying. There is less tenderness on deep palpation, but there is no gross induration or fullness. SKIN: Otherwise, warm without signs of rash. NEUROLOGIC: He did awaken, but would not answer any questions. IV: [facility] clean Labs Lab Laboratory Tests Test 05/18/19 05:30 White Blood Count 11.6 x10^3/uL (4.0-11.0) Red Blood Count 2.73 x10^6/uL (4.30-5.70) Hemoglobin 7.5 g/dL (13.0-17.5) Hematocrit 23.7 % (39.0-53.0) Mean Corpuscular Volume 87 fL (79-100) Mean Corpuscular Hemoglobin 28 pg (25-35) Mean Corpuscular Hemoglobin Concent 32 g/dL (31-37) Red Cell Distribution Width 22.4 % (11.5-14.5) Platelet Count 175 x10^3/uL (140-400) Neutrophils (%) (Auto) 87 % (31-73) Lymphocytes (%) (Auto) 2 % (24-48) Monocytes (%) (Auto) 7 % (0-9) Eosinophils (%) (Auto) 2 % (0-3) Basophils (%) (Auto) 1 % (0-3) Neutrophils # (Auto) 10.1 x10^3/uL (1.8-7.7) Lymphocytes # (Auto) 0.3 x10^3/uL (1.0-4.8) Monocytes # (Auto) 0.8 x10^3/uL (0.0-1.1) Eosinophils # (Auto) 0.3 x10^3/uL (0.0-0.7) Basophils # (Auto) 0.1 x10^3/uL (0.0-0.2) Sodium Level 138 mmol/L (136-145) Potassium Level 4.2 mmol/L (3.5-5.1) Chloride Level 100 mmol/L (98-107) Carbon Dioxide Level 27 mmol/L (21-32) Anion Gap 11 (6-14) Blood Urea Nitrogen 84 mg/dL (8-26) Creatinine 3.8 mg/dL (0.7-1.3) Estimated GFR (Cockcroft-Gault) 15.5 Glucose Level 200 mg/dL (70-99) Calcium Level 8.5 mg/dL (8.5-10.1) Micro Microbiology 05/16/19 Blood Culture - Preliminary, Resulted NO GROWTH AFTER 1 DAY Objective Assessment sepsis POA - fever/Hypotension/pneumonia/Encephalopathy/ABBY. Elevated Procalcitonin but ? reliability in renal failure RUE ? cellulitis Pneumonia ABBY on CKD Cephalexin allergy but has tolerated Zosyn/Meropenem in past Leukocytosis - better L max ? sinusitis Afib Cerebellar infarct - ? age Cardiomyopathy with pacemaker Plan Plan of Care Vanc and Levoflox dosed previously hold further quinolones Cont Zosyn per pharmacy 05/16. Added zyvox 05/17. MRSA screen neg but with pneumonia and alf resident is at risk/Cellulitis F/u labs and cults Monitor RUE D/w nursing ADRI RABAGO MD May 18, 2019 07:13
--- NOTE | 2019-05-18 08:53 | PDOC ---
PROGRESS NOTES Assessment Problems Medical Problems: (1) Acute kidney injury superimposed on CKD Status: Acute (2) Acute respiratory failure with hypoxia Status: Acute (3) Chronic kidney disease, stage 4 (severe) Status: Acute (4) CVA (cerebral vascular accident) Status: Acute (5) Dyspnea Status: Acute (6) HCAP (healthcare-associated pneumonia) Status: Acute (7) Pleural effusion on left Status: Acute (8) Pulmonary edema Status: Acute (9) Severe sepsis Status: Acute Metabolic encephalopathy related to sepsis. This is much better. 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 Oriented to "hospital" and person. PERRL. EOMI. CN: no focal findings. Muscle tone: normal. Muscle strength: 4/5 DTR: 2+ Plantar reflex: bilateral BKA's Gait: not examined in bed. Sensory exam: no abnormal findings. Automatisms of left arm, voluntary tremor which he can suppress Review of Relevant I have reviewed the following items nestor (where applicable) has been applied. Labs Laboratory Tests Test 05/17/19 05:30 05/18/19 05:30 White Blood Count 12.7 x10^3/uL (4.0-11.0) 11.6 x10^3/uL (4.0-11.0) Red Blood Count 2.66 x10^6/uL (4.30-5.70) 2.73 x10^6/uL (4.30-5.70) Hemoglobin 7.3 g/dL (13.0-17.5) 7.5 g/dL (13.0-17.5) Hematocrit 23.2 % (39.0-53.0) 23.7 % (39.0-53.0) Mean Corpuscular Volume 87 fL (79-100) 87 fL (79-100) Mean Corpuscular Hemoglobin 28 pg (25-35) 28 pg (25-35) Mean Corpuscular Hemoglobin Concent 32 g/dL (31-37) 32 g/dL (31-37) Red Cell Distribution Width 22.2 % (11.5-14.5) 22.4 % (11.5-14.5) Platelet Count 169 x10^3/uL (140-400) 175 x10^3/uL (140-400) Neutrophils (%) (Auto) 91 % (31-73) 87 % (31-73) Lymphocytes (%) (Auto) 2 % (24-48) 2 % (24-48) Monocytes (%) (Auto) 5 % (0-9) 7 % (0-9) Eosinophils (%) (Auto) 2 % (0-3) 2 % (0-3) Basophils (%) (Auto) 1 % (0-3) 1 % (0-3) Neutrophils # (Auto) 11.6 x10^3/uL (1.8-7.7) 10.1 x10^3/uL (1.8-7.7) Lymphocytes # (Auto) 0.2 x10^3/uL (1.0-4.8) 0.3 x10^3/uL (1.0-4.8) Monocytes # (Auto) 0.6 x10^3/uL (0.0-1.1) 0.8 x10^3/uL (0.0-1.1) Eosinophils # (Auto) 0.3 x10^3/uL (0.0-0.7) 0.3 x10^3/uL (0.0-0.7) Basophils # (Auto) 0.1 x10^3/uL (0.0-0.2) 0.1 x10^3/uL (0.0-0.2) Prothrombin Time 31.7 SEC (11.7-14.0) Prothromb Time International Ratio 3.1 (0.8-1.1) Sodium Level 135 mmol/L (136-145) 138 mmol/L (136-145) Potassium Level 5.2 mmol/L (3.5-5.1) 4.2 mmol/L (3.5-5.1) Chloride Level 100 mmol/L (98-107) 100 mmol/L (98-107) Carbon Dioxide Level 27 mmol/L (21-32) 27 mmol/L (21-32) Anion Gap 8 (6-14) 11 (6-14) Blood Urea Nitrogen 83 mg/dL (8-26) 84 mg/dL (8-26) Creatinine 3.9 mg/dL (0.7-1.3) 3.8 mg/dL (0.7-1.3) Estimated GFR (Cockcroft-Gault) 15.0 15.5 BUN/Creatinine Ratio 21 (6-20) Glucose Level 143 mg/dL (70-99) 200 mg/dL (70-99) Calcium Level 8.4 mg/dL (8.5-10.1) 8.5 mg/dL (8.5-10.1) Total Bilirubin 0.9 mg/dL (0.2-1.0) Aspartate Amino Transf (AST/SGOT) 13 U/L (15-37) Alanine Aminotransferase (ALT/SGPT) < 6 U/L (16-63) Alkaline Phosphatase 86 U/L (46-116) Total Protein 6.1 g/dL (6.4-8.2) Albumin 2.5 g/dL (3.4-5.0) Albumin/Globulin Ratio 0.7 (1.0-1.7) Laboratory Tests Test 05/18/19 05:30 White Blood Count 11.6 x10^3/uL (4.0-11.0) Red Blood Count 2.73 x10^6/uL (4.30-5.70) Hemoglobin 7.5 g/dL (13.0-17.5) Hematocrit 23.7 % (39.0-53.0) Mean Corpuscular Volume 87 fL (79-100) Mean Corpuscular Hemoglobin 28 pg (25-35) Mean Corpuscular Hemoglobin Concent 32 g/dL (31-37) Red Cell Distribution Width 22.4 % (11.5-14.5) Platelet Count 175 x10^3/uL (140-400) Neutrophils (%) (Auto) 87 % (31-73) Lymphocytes (%) (Auto) 2 % (24-48) Monocytes (%) (Auto) 7 % (0-9) Eosinophils (%) (Auto) 2 % (0-3) Basophils (%) (Auto) 1 % (0-3) Neutrophils # (Auto) 10.1 x10^3/uL (1.8-7.7) Lymphocytes # (Auto) 0.3 x10^3/uL (1.0-4.8) Monocytes # (Auto) 0.8 x10^3/uL (0.0-1.1) Eosinophils # (Auto) 0.3 x10^3/uL (0.0-0.7) Basophils # (Auto) 0.1 x10^3/uL (0.0-0.2) Sodium Level 138 mmol/L (136-145) Potassium Level 4.2 mmol/L (3.5-5.1) Chloride Level 100 mmol/L (98-107) Carbon Dioxide Level 27 mmol/L (21-32) Anion Gap 11 (6-14) Blood Urea Nitrogen 84 mg/dL (8-26) Creatinine 3.8 mg/dL (0.7-1.3) Estimated GFR (Cockcroft-Gault) 15.5 Glucose Level 200 mg/dL (70-99) Calcium Level 8.5 mg/dL (8.5-10.1) Microbiology 05/16/19 Blood Culture - Preliminary, Resulted NO GROWTH AFTER 2 DAYS Medications Current Medications Vancomycin HCl (Vanco Per Pharmacy) 1 each PRN DAILY PRN MC SEE COMMENTS Last administered on 05/16/19at 02:12; Start 05/15/19 at 23:00; Stop 05/17/19 at 06:52; Status DC Levofloxacin/ Dextrose 150 ml @ 100 mls/hr 1X ONCE IV Last administered on 05/16/19at 00:17; Start 05/15/19 at 23:30; Stop 05/16/19 at 00:59; Status DC Sodium Chloride 1,000 ml @ 1,000 mls/hr 1X ONCE IV ; Start 05/15/19 at 23:30; Stop 05/16/19 at 00:29; Status DC Sodium Chloride 1,000 ml @ 1,000 mls/hr 1X ONCE IV Last administered on 05/16at 00:17; Start 05/15/19 at 23:30; Stop 05/16/19 at 00:29; Status DC Sodium Chloride 1,000 ml @ 1,000 mls/hr 1X ONCE IV Last administered on 05/16/19at 00:17; Start 05/15/19 at 23:30; Stop 05/16/19 at 00:29; Status DC Vancomycin HCl 2 gm/Sodium Chloride 500 ml @ 250 mls/hr 1X ONCE IV Last administered on 05/16/19at 00:15; Start 05/16/19 at 00:00; Stop 05/16/19 at 01:59; Status DC Ondansetron HCl (Zofran) 4 mg PRN Q8HRS PRN IV NAUSEA/VOMITING 1ST CHOICE; Start 05/16/19 at 01:45; Stop 05/17/19 at 01:44; Status DC Vancomycin HCl 1.25 gm/Sodium Chloride 250 ml @ 167 mls/hr Q48H IV ; Start 05/18/19 at 00:00; Stop 05/17/19 at 06:52; Status DC Vancomycin HCl (Vancomycin Trough Level) 1 each 1X ONCE MC ; Start 05/19/19 at 23:30; Stop 05/17/19 at 07:19; Status DC Albumin Human 100 ml @ 100 mls/hr 1X ONCE IV Last administered on 05/16/19at 04:14; Start 05/16/19 at 04:30; Stop 05/16/19 at 05:29; Status DC Norepinephrine Bitartrate 250 ml @ 17.031 mls/ hr CONT PRN IV SEE I/O RECORD Last administered on 05/16/19at 04:21; Start 05/16/19 at 04:00 Info (FLU VACCINE SCREEN per RX) 1 each 1X ONCE MC ; Start 05/16/19 at 05:00; Stop 05/16/19 at 05:01; Status UNV Albumin Human 250 ml @ 125 mls/hr 1X ONCE IV Last administered on 05/16/19at 05:11; Start 05/16/19 at 05:30; Stop 05/16/19 at 07:29; Status DC Piperacillin Sod/ Tazobactam Sod 2.25 gm/Sodium Chloride 50 ml @ 100 mls/hr Q6 HRS IV Last administered on 05/18/19at 06:01; Start 05/16/19 at 13:00 Linezolid/Dextrose 300 ml @ 300 mls/hr Q12HR IV Last administered on 05/18/19at 08:31; Start 05/17/19 at 09:00 Furosemide (Lasix) 40 mg 1X ONCE IVP Last administered on 05/17/19at 15:47; Start 05/17/19 at 15:45; Stop 05/17/19 at 15:46; Status DC Active Scripts Active Novolog Flexpen (Insulin Aspart) 300 Units/3 Ml Insuln.pen 8 Units SQ TIDWMEALS Reported Trazodone Hcl 100 Mg Tablet 1 Tab PO QHS Tramadol Hcl 50 Mg Tablet 50 Mg PO Q8HRS Torsemide 20 Mg Tablet 100 Mg PO BID Temazepam 15 Mg Capsule 1 Cap PO QHS Sinemet Cr 25-100 Tablet (Carbidopa/Levodopa) 1 Each Tablet.er 1 Tab PO TID Simethicone 80 Mg Tab.chew 80 Mg PO PRN Q6HRS PRN Senna Plus 8.6-50 mg Tablet (Sennosides/Docusate Sodium) 1 Each Tablet 1 Each PO BID Renvela (Sevelamer Carbonate) 800 Mg Tablet 3 Tab PO TIDAC Protonix (Pantoprazole Sodium) 40 Mg Tablet.dr 40 Mg PO DAILYAC Pravastatin Sodium 20 Mg Tablet 1 Tab PO HS Potassium Chloride 20 Meq Tablet.er 2 Tab PO DAILY Klor-Con M20 (Potassium Chloride) 20 Meq Tab.er.prt 1 Tab PO PRN DAILY PRN Novolog (Insulin Aspart) 100 Unit/1 Ml Cartridge 8 Unit SQ TIDBFRMEAL NITROGLYCERIN SubLingual (Nitroglycerin) 0.4 Mg Tab.subl 1 Tab SL UD PRN Miralax (Polyethylene Glycol 3350) 17 Gm Powd.pack 1 Packet PO BID Metoprolol Succinate ( Xl ) (Metoprolol Succinate) 25 Mg Tab.er.24h 1 Tab PO DAILY Metolazone 5 Mg Tablet 1.5 Tab PO DAILY Metolazone 2.5 Mg Tablet 2.5 Mg PO PRN DAILY PRN Melatonin 3 Mg Tablet 2 Tab PO QHS Levothyroxine Sodium 125 Mcg Tablet 1 Tab PO DAILY Lantus Solostar (Insulin Glargine,Hum.rec.anlog) 100 Unit/1 Ml Insuln.pen 12 Unit SQ QHS Acidophilus (Lactobacillus Acidophilus) 1 Each Capsule 1 Each PO DAILY Glucose Gel (Dextrose) 38 Gm Gel..gram. 38 Gm PO PRN PRN Gabapentin (Gabapentin) 100 Mg Capsule 100 Mg PO TID Flonase Allergy Relief (Fluticasone Propionate) 9.9 Ml [place].susp 2 Sprays NS DAILY Fleet Enema (Na Phos,M-B/Na Phos,Di-Ba) 133 Ml Enema 133 Ml RC PRN PRN Ferrous Gluconate 240 Mg Tablet 240 Mg PO DAILY Uloric (Febuxostat) 80 Mg Tablet 1 Tab PO DAILY Cymbalta (Duloxetine Hcl) 60 Mg Capsule.dr 1 Cap PO HS Cymbalta (Duloxetine Hcl) 30 Mg Capsule.dr 1 Cap PO DAILY Vitamin B-12 (Cyanocobalamin (Vitamin B-12)) 1,000 Mcg Tablet 1 Tab PO DAILY Coumadin (Warfarin Sodium) 2 Mg Tablet 1 Tab PO DAILY Vitamin D3 (Cholecalciferol (Vitamin D3)) 5,000 Unit Tablet 1 Tab PO DAILY Buspirone Hcl 5 Mg Tablet 1 Tab PO BID Bisacodyl 10 Mg Supp.rect 10 Mg RC PRN DAILY PRN Tylenol (Acetaminophen) 325 Mg Tablet 2 Tab PO PRN Q6HRS PRN Sertraline Hcl 100 Mg Tablet 100 Mg PO DAILY Aspir 81 (Aspirin) 81 Mg Tablet.dr 1 Tab PO DAILY Vitals/I & O Vital Sign - Last 24 Hours 05/17/19 05/17/19 05/17/19 05/17/19 09:00 10:00 11:00 12:00 Pulse 70 70 70 Resp 20 17 16 B/P (MAP) 106/45 (65) 92/45 (61) 113/43 (66) Pulse Ox 96 95 95 O2 Delivery Room Air Room Air Room Air Room Air 05/17/19 05/17/19 05/17/19 05/17/19 12:00 13:00 14:00 15:00 Temp 98.7 98.7 Pulse 72 70 70 69 Resp 19 23 21 18 B/P (MAP) 118/39 (65) 109/61 (77) 125/36 (65) 128/37 (67) Pulse Ox 96 93 95 96 O2 Delivery Room Air Room Air Room Air Room Air 05/17/19 05/17/19 05/17/19 05/17/19 16:00 16:00 17:00 18:00 Temp 98.9 98.9 Pulse 70 70 70 Resp 18 20 15 B/P (MAP) 121/40 (67) 149/46 (80) 135/49 (77) Pulse Ox 92 93 92 O2 Delivery Room Air Room Air Room Air Room Air 05/17/19 05/17/19 05/17/19 05/17/19 19:00 20:00 20:00 21:00 Temp 99.5 99.5 Pulse 68 68 68 Resp 15 17 33 B/P (MAP) 111/61 (78) 147/48 (81) 136/49 (78) Pulse Ox 93 95 94 O2 Delivery Room Air Room Air Room Air Room Air 05/17/19 05/17/19 05/17/19 05/18/19 22:00 23:00 23:59 00:00 Temp 99.6 99.6 Pulse 70 68 70 Resp 16 17 22 B/P (MAP) 149/44 (79) 115/51 (72) 135/38 (70) Pulse Ox 94 93 94 O2 Delivery Room Air Room Air Room Air Room Air 05/18/19 05/18/19 05/18/19 05/18/19 01:00 02:00 03:00 04:00 Temp 99.4 99.4 Pulse 68 70 68 67 Resp 15 26 18 16 B/P (MAP) 126/40 (68) 144/58 (86) 128/42 (70) 110/36 (60) Pulse Ox 92 93 94 93 O2 Delivery Room Air Room Air Room Air Room Air 05/18/19 05/18/19 05/18/19 04:00 05:00 06:00 Pulse 69 66 Resp 19 20 B/P (MAP) 104/32 (56) 84/45 (58) Pulse Ox 95 95 O2 Delivery Room Air Room Air Room Air Intake and Output 05/17/19 05/17/19 05/18/19 14:59 22:59 06:59 Intake Total 350 ml 136 ml 158 ml Output Total 285 ml 700 ml 375 ml Balance 65 ml -564 ml -[address] head, 05/17 There is no evidence of hemorrhage, mass or extra-axial fluid collection. 2 cm region of hypoattenuation within the right cerebellum is more rounded on today's examination suggesting evolution of the right cerebellar infarct. Follow-up with MRI or continued follow-up with CT is recommended to exclude underlying mass given the rounded appearance. There is no mass effect or shift of the intracranial structures. The ventricles, basilar cisterns and cortical sulci are normal in size and configuration for the patients stated age. The calvarium demonstrates no evidence of fracture or focal lesion. Mastoid air cells are grossly clear. Left maxillary sinus opacification likely sinusitis, only partially visualized. Otherwise paranasal sinuses are clear. The visualized portions of the orbits are normal. Atherosclerotic calcifications of the intracranial internal carotid and vertebral arteries is seen. IMPRESSION: The right cerebellar hypoattenuating lesion is now more rounded, likely evolving cerebellar infarct. This can be further assessed with MRI or continued follow-up with CT to assess progression. STEPHANIE DUKE MD May 18, 2019 08:53
[2019-05-18 09:38] LABS: PROTHROMBIN TIME PATIENT 25.2 SEC (11.7-14.0)
--- NOTE | 2019-05-18 09:52 | PDOC ---
PROGRESS NOTES Chief Complaint Chief Complaint Severe sepsis, metabolic encephalopathy Hx CVA wekness and debility pleural effusion CHF obesity, BMI 35 History of Present Illness History of Present Illness 05/18, can transfer out of ICU pt and ot and speech start IV nutrition, may be able to take PO soon, getting better pleural effusion from CHF most likely 05/17/19, Dr. Diop Pt was seen and examined today in the ICU DW Nurse about pleural effusion on CXR Vitals Vitals Vital Signs Date Time Temp Pulse Resp B/P (MAP) Pulse Ox O2 Delivery O2 Flow Rate FiO2 05/18/19 09:00 70 15 95/37 (56) 94 Room Air 05/18/19 08:00 98.2 98.2 Physical Exam Physical Exam CONSTITUTIONAL: Alert and in NAD HEENT: His conjunctivae are normal. OC/OP- clean NECK: Supple. No JVD. Right IJ without signs of any complications. HEART: S1, S2 with a 2/6 murmur. Pacemaker without signs of complications. ABDOMEN: Soft, nontender. No guarding. GENITOURINARY: Has a Garcia in place. EXTREMITIES: Bilateral lower extremity BKAs, without any wounds. His right upper extremity has area of erythema and warmth that has improved and is drying. There is less tenderness on deep palpation, but there is no gross induration or fullness. SKIN: Otherwise, warm without signs of rash. NEUROLOGIC: He did awaken, but would not answer any questions. IV: RIJ clean General: Alert, Cooperative, No acute distress, Other (oriented to person only) Heart: Regular rate, Normal S1, Normal S2, Other (3/6 systolic murmur ) Lungs: Other (decrease left base) Abdomen: Normal bowel sounds, Soft Extremities: No clubbing, Other (bilateral BKA, trace edema ) Skin: No rashes Labs LABS Laboratory Tests Test 05/18/19 05:30 05/18/19 09:10 White Blood Count 11.6 x10^3/uL (4.0-11.0) Red Blood Count 2.73 x10^6/uL (4.30-5.70) Hemoglobin 7.5 g/dL (13.0-17.5) Hematocrit 23.7 % (39.0-53.0) Mean Corpuscular Volume 87 fL (79-100) Mean Corpuscular Hemoglobin 28 pg (25-35) Mean Corpuscular Hemoglobin Concent 32 g/dL (31-37) Red Cell Distribution Width 22.4 % (11.5-14.5) Platelet Count 175 x10^3/uL (140-400) Neutrophils (%) (Auto) 87 % (31-73) Lymphocytes (%) (Auto) 2 % (24-48) Monocytes (%) (Auto) 7 % (0-9) Eosinophils (%) (Auto) 2 % (0-3) Basophils (%) (Auto) 1 % (0-3) Neutrophils # (Auto) 10.1 x10^3/uL (1.8-7.7) Lymphocytes # (Auto) 0.3 x10^3/uL (1.0-4.8) Monocytes # (Auto) 0.8 x10^3/uL (0.0-1.1) Eosinophils # (Auto) 0.3 x10^3/uL (0.0-0.7) Basophils # (Auto) 0.1 x10^3/uL (0.0-0.2) Sodium Level 138 mmol/L (136-145) Potassium Level 4.2 mmol/L (3.5-5.1) Chloride Level 100 mmol/L (98-107) Carbon Dioxide Level 27 mmol/L (21-32) Anion Gap 11 (6-14) Blood Urea Nitrogen 84 mg/dL (8-26) Creatinine 3.8 mg/dL (0.7-1.3) Estimated GFR (Cockcroft-Gault) 15.5 Glucose Level 200 mg/dL (70-99) Calcium Level 8.5 mg/dL (8.5-10.1) Prothrombin Time 25.2 SEC (11.7-14.0) Prothromb Time International Ratio 2.3 (0.8-1.1) Review of Systems Review of Systems more alert, no n..v.d' Assessment and Plan Assessmemt and Plan Problems Medical Problems: (1) Acute kidney injury superimposed on CKD Status: Acute (2) Acute respiratory failure with hypoxia Status: Acute (3) Chronic kidney disease, stage 4 (severe) Status: Acute (4) CVA (cerebral vascular accident) Status: Acute (5) Dyspnea Status: Acute (6) HCAP (healthcare-associated pneumonia) Status: Acute (7) Pleural effusion on left Status: Acute (8) Pulmonary edema Status: Acute (9) Severe sepsis Status: Acute Comment Review of Relevant I have reviewed the following items nestor (where applicable) has been applied. Labs Laboratory Tests Test 05/17/19 05:30 05/18/19 05:30 05/18/19 09:10 White Blood Count 12.7 x10^3/uL (4.0-11.0) 11.6 x10^3/uL (4.0-11.0) Red Blood Count 2.66 x10^6/uL (4.30-5.70) 2.73 x10^6/uL (4.30-5.70) Hemoglobin 7.3 g/dL (13.0-17.5) 7.5 g/dL (13.0-17.5) Hematocrit 23.2 % (39.0-53.0) 23.7 % (39.0-53.0) Mean Corpuscular Volume 87 fL (79-100) 87 fL (79-100) Mean Corpuscular Hemoglobin 28 pg (25-35) 28 pg (25-35) Mean Corpuscular Hemoglobin Concent 32 g/dL (31-37) 32 g/dL (31-37) Red Cell Distribution Width 22.2 % (11.5-14.5) 22.4 % (11.5-14.5) Platelet Count 169 x10^3/uL (140-400) 175 x10^3/uL (140-400) Neutrophils (%) (Auto) 91 % (31-73) 87 % (31-73) Lymphocytes (%) (Auto) 2 % (24-48) 2 % (24-48) Monocytes (%) (Auto) 5 % (0-9) 7 % (0-9) Eosinophils (%) (Auto) 2 % (0-3) 2 % (0-3) Basophils (%) (Auto) 1 % (0-3) 1 % (0-3) Neutrophils # (Auto) 11.6 x10^3/uL (1.8-7.7) 10.1 x10^3/uL (1.8-7.7) Lymphocytes # (Auto) 0.2 x10^3/uL (1.0-4.8) 0.3 x10^3/uL (1.0-4.8) Monocytes # (Auto) 0.6 x10^3/uL (0.0-1.1) 0.8 x10^3/uL (0.0-1.1) Eosinophils # (Auto) 0.3 x10^3/uL (0.0-0.7) 0.3 x10^3/uL (0.0-0.7) Basophils # (Auto) 0.1 x10^3/uL (0.0-0.2) 0.1 x10^3/uL (0.0-0.2) Prothrombin Time 31.7 SEC (11.7-14.0) 25.2 SEC (11.7-14.0) Prothromb Time International Ratio 3.1 (0.8-1.1) 2.3 (0.8-1.1) Sodium Level 135 mmol/L (136-145) 138 mmol/L (136-145) Potassium Level 5.2 mmol/L (3.5-5.1) 4.2 mmol/L (3.5-5.1) Chloride Level 100 mmol/L (98-107) 100 mmol/L (98-107) Carbon Dioxide Level 27 mmol/L (21-32) 27 mmol/L (21-32) Anion Gap 8 (6-14) 11 (6-14) Blood Urea Nitrogen 83 mg/dL (8-26) 84 mg/dL (8-26) Creatinine 3.9 mg/dL (0.7-1.3) 3.8 mg/dL (0.7-1.3) Estimated GFR (Cockcroft-Gault) 15.0 15.5 BUN/Creatinine Ratio 21 (6-20) Glucose Level 143 mg/dL (70-99) 200 mg/dL (70-99) Calcium Level 8.4 mg/dL (8.5-10.1) 8.5 mg/dL (8.5-10.1) Total Bilirubin 0.9 mg/dL (0.2-1.0) Aspartate Amino Transf (AST/SGOT) 13 U/L (15-37) Alanine Aminotransferase (ALT/SGPT) < 6 U/L (16-63) Alkaline Phosphatase 86 U/L (46-116) Total Protein 6.1 g/dL (6.4-8.2) Albumin 2.5 g/dL (3.4-5.0) Albumin/Globulin Ratio 0.7 (1.0-1.7) Laboratory Tests Test 05/18/19 05:30 05/18/19 09:10 White Blood Count 11.6 x10^3/uL (4.0-11.0) Red Blood Count 2.73 x10^6/uL (4.30-5.70) Hemoglobin 7.5 g/dL (13.0-17.5) Hematocrit 23.7 % (39.0-53.0) Mean Corpuscular Volume 87 fL (79-100) Mean Corpuscular Hemoglobin 28 pg (25-35) Mean Corpuscular Hemoglobin Concent 32 g/dL (31-37) Red Cell Distribution Width 22.4 % (11.5-14.5) Platelet Count 175 x10^3/uL (140-400) Neutrophils (%) (Auto) 87 % (31-73) Lymphocytes (%) (Auto) 2 % (24-48) Monocytes (%) (Auto) 7 % (0-9) Eosinophils (%) (Auto) 2 % (0-3) Basophils (%) (Auto) 1 % (0-3) Neutrophils # (Auto) 10.1 x10^3/uL (1.8-7.7) Lymphocytes # (Auto) 0.3 x10^3/uL (1.0-4.8) Monocytes # (Auto) 0.8 x10^3/uL (0.0-1.1) Eosinophils # (Auto) 0.3 x10^3/uL (0.0-0.7) Basophils # (Auto) 0.1 x10^3/uL (0.0-0.2) Sodium Level 138 mmol/L (136-145) Potassium Level 4.2 mmol/L (3.5-5.1) Chloride Level 100 mmol/L (98-107) Carbon Dioxide Level 27 mmol/L (21-32) Anion Gap 11 (6-14) Blood Urea Nitrogen 84 mg/dL (8-26) Creatinine 3.8 mg/dL (0.7-1.3) Estimated GFR (Cockcroft-Gault) 15.5 Glucose Level 200 mg/dL (70-99) Calcium Level 8.5 mg/dL (8.5-10.1) Prothrombin Time 25.2 SEC (11.7-14.0) Prothromb Time International Ratio 2.3 (0.8-1.1) Microbiology 05/16/19 Blood Culture - Preliminary, Resulted NO GROWTH AFTER 2 DAYS Medications Current Medications Vancomycin HCl (Vanco Per Pharmacy) 1 each PRN DAILY PRN MC SEE COMMENTS Last administered on 05/16/19at 02:12; Start 05/15/19 at 23:00; Stop 05/17/19 at 06:52; Status DC Levofloxacin/ Dextrose 150 ml @ 100 mls/hr 1X ONCE IV Last administered on 05/16/19at 00:17; Start 05/15/19 at 23:30; Stop 05/16/19 at 00:59; Status DC Sodium Chloride 1,000 ml @ 1,000 mls/hr 1X ONCE IV ; Start 05/15/19 at 23:30; Stop 05/16/19 at 00:29; Status DC Sodium Chloride 1,000 ml @ 1,000 mls/hr 1X ONCE IV Last administered on at 00:17; Start 05/15/19 at 23:30; Stop 05/16/19 at 00:29; Status DC Sodium Chloride 1,000 ml @ 1,000 mls/hr 1X ONCE IV Last administered on 05/16/19at 00:17; Start 05/15/19 at 23:30; Stop 05/16/19 at 00:29; Status DC Vancomycin HCl 2 gm/Sodium Chloride 500 ml @ 250 mls/hr 1X ONCE IV Last administered on 05/16/19at 00:15; Start 05/16/19 at 00:00; Stop 05/16/19 at 01:59; Status DC Ondansetron HCl (Zofran) 4 mg PRN Q8HRS PRN IV NAUSEA/VOMITING 1ST CHOICE; Start 05/16/19 at 01:45; Stop 05/17/19 at 01:44; Status DC Vancomycin HCl 1.25 gm/Sodium Chloride 250 ml @ 167 mls/hr Q48H IV ; Start 05/18/19 at 00:00; Stop 05/17/19 at 06:52; Status DC Vancomycin HCl (Vancomycin Trough Level) 1 each 1X ONCE MC ; Start 05/19/19 at 23:30; Stop 05/17/19 at 07:19; Status DC Albumin Human 100 ml @ 100 mls/hr 1X ONCE IV Last administered on 05/16/19at 04:14; Start 05/16/19 at 04:30; Stop 05/16/19 at 05:29; Status DC Norepinephrine Bitartrate 250 ml @ 17.031 mls/ hr CONT PRN IV SEE I/O RECORD Last administered on 05/16/19at 04:21; Start 05/16/19 at 04:00 Info (FLU VACCINE SCREEN per RX) 1 each 1X ONCE MC ; Start 05/16/19 at 05:00; Stop 05/16/19 at 05:01; Status UNV Albumin Human 250 ml @ 125 mls/hr 1X ONCE IV Last administered on 05/16/19at 05:11; Start 05/16/19 at 05:30; Stop 05/16/19 at 07:29; Status DC Piperacillin Sod/ Tazobactam Sod 2.25 gm/Sodium Chloride 50 ml @ 100 mls/hr Q6HRS IV Last administered on 05/18/19at 06:01; Start 05/16/19 at 13:00 Linezolid/Dextrose 300 ml @ 300 mls/hr Q12HR IV Last administered on 05/18/19at 08:31; Start 05/17/19 at 09:00 Furosemide (Lasix) 40 mg 1X ONCE IVP Last administered on 05/17/19at 15:47; Start 05/17/19 at 15:45; Stop 05/17/19 at 15:46; Status DC Active Scripts Active Novolog Flexpen (Insulin Aspart) 300 Units/3 Ml Insuln.pen 8 Units SQ TIDWMEALS Reported Trazodone Hcl 100 Mg Tablet 1 Tab PO QHS Tramadol Hcl 50 Mg Tablet 50 Mg PO Q8HRS Torsemide 20 Mg Tablet 100 Mg PO BID Temazepam 15 Mg Capsule 1 Cap PO QHS Sinemet Cr 25-100 Tablet (Carbidopa/Levodopa) 1 Each Tablet.er 1 Tab PO TID Simethicone 80 Mg Tab.chew 80 Mg PO PRN Q6HRS PRN Senna Plus 8.6-50 mg Tablet (Sennosides/Docusate Sodium) 1 Each Tablet 1 Each PO BID Renvela (Sevelamer Carbonate) 800 Mg Tablet 3 Tab PO TIDAC Protonix (Pantoprazole Sodium) 40 Mg Tablet.dr 40 Mg PO DAILYAC Pravastatin Sodium 20 Mg Tablet 1 Tab PO HS Potassium Chloride 20 Meq Tablet.er 2 Tab PO DAILY Klor-Con M20 (Potassium Chloride) 20 Meq Tab.er.prt 1 Tab PO PRN DAILY PRN Novolog (Insulin Aspart) 100 Unit/1 Ml Cartridge 8 Unit SQ TIDBFRMEAL NITROGLYCERIN SubLingual (Nitroglycerin) 0.4 Mg Tab.subl 1 Tab SL UD PRN Miralax (Polyethylene Glycol 3350) 17 Gm Powd.pack 1 Packet PO BID Metoprolol Succinate ( Xl ) (Metoprolol Succinate) 25 Mg Tab.er.24h 1 Tab PO DAILY Metolazone 5 Mg Tablet 1.5 Tab PO DAILY Metolazone 2.5 Mg Tablet 2.5 Mg PO PRN DAILY PRN Melatonin 3 Mg Tablet 2 Tab PO QHS Levothyroxine Sodium 125 Mcg Tablet 1 Tab PO DAILY Lantus Solostar (Insulin Glargine,Hum.rec.anlog) 100 Unit/1 Ml Insuln.pen 12 Unit SQ QHS Acidophilus (Lactobacillus Acidophilus) 1 Each Capsule 1 Each PO DAILY Glucose Gel (Dextrose) 38 Gm Gel..gram. 38 Gm PO PRN PRN Gabapentin (Gabapentin) 100 Mg Capsule 100 Mg PO TID Flonase Allergy Relief (Fluticasone Propionate) 9.9 Ml Rowan.susp 2 Sprays NS DAILY Fleet Enema (Na Phos,M-B/Na Phos,Di-Ba) 133 Ml Enema 133 Ml RC PRN PRN Ferrous Gluconate 240 Mg Tablet 240 Mg PO DAILY Uloric (Febuxostat) 80 Mg Tablet 1 Tab PO DAILY Cymbalta (Duloxetine Hcl) 60 Mg Capsule.dr 1 Cap PO HS Cymbalta (Duloxetine Hcl) 30 Mg Capsule.dr 1 Cap PO DAILY Vitamin B-12 (Cyanocobalamin (Vitamin B-12)) 1,000 Mcg Tablet 1 Tab PO DAILY Coumadin (Warfarin Sodium) 2 Mg Tablet 1 Tab PO DAILY Vitamin D3 (Cholecalciferol (Vitamin D3)) 5,000 Unit Tablet 1 Tab PO DAILY Buspirone Hcl 5 Mg Tablet 1 Tab PO BID Bisacodyl 10 Mg Supp.rect 10 Mg RC PRN DAILY PRN Tylenol (Acetaminophen) 325 Mg Tablet 2 Tab PO PRN Q6HRS PRN Sertraline Hcl 100 Mg Tablet 100 Mg PO DAILY Aspir 81 (Aspirin) 81 Mg Tablet. 1 Tab PO DAILY Vitals/I & O Vital Sign - Last 24 Hours 05/17/19 05/17/19 05/17/19 05/17/19 10:00 11:00 12:00 12:00 Temp 98.7 98.7 Pulse 70 70 72 Resp 17 16 19 B/P (MAP) 92/45 (61) 113/43 (66) 118/39 (65) Pulse Ox 95 95 96 O2 Delivery Room Air Room Air Room Air Room Air 05/17/19 05/17/19 05/17/19 05/17/19 13:00 14:00 15:00 16:00 Pulse 70 70 69 Resp 23 21 18 B/P (MAP) 109/61 (77) 125/36 (65) 128/37 (67) Pulse Ox 93 95 96 O2 Delivery Room Air Room Air Room Air Room Air 05/17/19 05/17/19 05/17/19 05/17/19 16:00 17:00 18:00 19:00 Temp 98.9 98.9 Pulse 70 70 70 68 Resp 18 20 15 15 B/P (MAP) 121/40 (67) 149/46 (80) 135/49 (77) 111/61 (78) Pulse Ox 92 93 92 93 O2 Delivery Room Air Room Air Room Air Room Air 05/17/19 05/17/19 05/17/19 05/17/19 20:00 20:00 21:00 22:00 Temp 99.5 99.5 Pulse 68 68 70 Resp 17 33 16 B/P (MAP) 147/48 (81) 136/49 (78) 149/44 (79) Pulse Ox 95 94 94 O2 Delivery Room Air Room Air Room Air Room Air 05/17/19 05/17/19 05/18/19 05/18/19 23:00 23:59 00:00 01:00 Temp 99.6 99.6 Pulse 68 70 68 Resp 17 22 15 B/P (MAP) 115/51 (72) 135/38 (70) 126/40 (68) Pulse Ox 93 94 92 O2 Delivery Room Air Room Air Room Air Room Air 05/18/19 05/18/19 05/18/19 05/18/19 02:00 03:00 04:00 04:00 Temp 99.4 99.4 Pulse 70 68 67 Resp 26 18 16 B/P (MAP) 144/58 (86) 128/42 (70) 110/36 (60) Pulse Ox 93 94 93 O2 Delivery Room Air Room Air Room Air Room Air 05/18/19 05/18/19 05/18/19 05/18/19 05:00 06:00 07:00 07:45 Pulse 69 66 69 Resp 19 20 17 B/P (MAP) 104/32 (56) 84/45 (58) 103/55 (71) Pulse Ox 95 95 96 O2 Delivery Room Air Room Air Room Air Room Air 05/18/19 05/18/19 08:00 09:00 Temp 98.2 98.2 Pulse 72 70 Resp 22 15 B/P (MAP) 90/42 (58) 95/37 (56) Pulse Ox 94 94 O2 Delivery Room Air Room Air Intake and Output 05/17/19 05/17/19 05/18/19 15:00 23:00 07:00 Intake Total 350 ml 136 ml 158 ml Output Total 300 ml 715 ml 375 ml Balance 50 ml -579 ml -217 ml EMELY RICARDO MD May 18, 2019 09:51
--- NOTE | 2019-05-18 09:54 | PDOC ---
SUBJECTIVE ROS Stable OBJECTIVE Vital Signs Vital Signs Date Time Temp Pulse Resp B/P (MAP) Pulse Ox O2 Delivery O2 Flow Rate FiO2 05/18/19 09:00 70 15 95/37 (56) 94 Room Air 05/18/19 08:00 98.2 98.2 I & 0 Intake and Output 05/18/19 06:59 Intake Total 644 ml Output Total 1360 ml Balance -716 ml IV Total 644 ml Output Urine Total 1360 ml PHYSICAL EXAM Physical Exam GENERAL: NAD HEEN-OM moist . On RA NECK: Supple. HEART: S1, S2 with a 2/6 murmur. Pacemaker without signs of complications. ABDOMEN: Soft, nontender. GENITOURINARY: Has a Garcia in place. EXTREMITIES: Bilateral lower extremity BKAs, No edema SKIN: No rash NEUROLOGIC: Recent Stroke, doesnt answer questions DIAGNOSIS/ASSESSMENT Assessment & Plan ABBY - ATN suspect sec to Sepsis/ Hypotension UA and Renal US unremarkable , UOP picked up Stable renal function IVF boluses if BP stays low or UOP declines Supportive care, strict I/O , daily weight , daily BMP avoid nephrotoxins Hyperkalemia- mild Resolved Sepsis with possible pneumonia: ID following CKD STAGE 3- at least since 2011, no prior labs Reviewed records from our office ,Saw Dr. Jolly in 2016 Baseline Cr 1.5-2.2 (in 2017) no interval labs Lt pleural effusion - per card/Pulm Metabolic encephalopathy: Hx of CVA p Neurology following. 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% S/P IV Lasix 1 dose per cardiology ICM s/o AICD/CRTD , paced rhythm with underlying afib CAD s/p CABG 03/06 Chronic AFIB Diabetes, II Anemia of chronic disease- stable COMMENT/RELEVANT DATA Meds Current Medications Medications (Trade) Dose Ordered Sig/Adithya Start Time Stop Time Status Last Admin Dose Admin Albumin Human 250 ml @ 125 mls/hr 1X ONCE 05/16/19 05:30 05/16/19 07:29 DC 05/16/19 05:11 125 MLS/HR Furosemide (Lasix) 40 mg 1X ONCE 05/17/19 15:45 05/17/19 15:46 DC 05/17/19 15:47 40 MG Info (FLU VACCINE SCREEN per RX) 1 each 1X ONCE 05/16/19 05:00 05/16/19 05:01 UNV Levofloxacin/ Dextrose 150 ml @ 100 mls/hr 1X ONCE 05/15/19 23:30 05/16/19 00:59 DC 05/16/19 00:17 100 MLS/HR Linezolid/Dextrose 300 ml @ 300 mls/hr Q12HR 05/17/19 09:00 05/18/19 08:31 300 MLS/HR Norepinephrine Bitartrate 250 ml @ 17.031 mls/ hr CONT PRN 05/16/19 04:00 05/16/19 04:21 3.406 MLS/HR Ondansetron HCl (Zofran) 4 mg PRN Q8HRS PRN 05/16/19 01:45 05/17/19 01:44 DC Piperacillin Sod/ Tazobactam Sod 2.25 gm/Sodium Chloride 50 ml @ 100 mls/hr Q6HRS 05/16/19 13:00 05/18/19 06:01 100 MLS/HR Sodium Chloride 1,000 ml @ 1,000 mls/hr 1X ONCE 05/15/19 23:30 05/16/19 00:29 DC 05/16/19 00:17 1,000 MLS/HR Vancomycin HCl (Vanco Per Pharmacy) 1 each PRN DAILY PRN 05/15/19 23:00 05/17/19 06:52 DC 05/16/19 02:12 1 EACH Vancomycin HCl (Vancomycin Trough Level) 1 each 1X ONCE 05/19/19 23:30 05/17/19 07:19 DC Vancomycin HCl 1.25 gm/Sodium Chloride 250 ml @ 167 mls/hr Q48H 05/18/19 00:00 05/17/19 06:52 DC Vancomycin HCl 2 gm/Sodium Chloride 500 ml @ 250 mls/hr 1X ONCE 05/16/19 00:00 05/16/19 01:59 DC 05/16/19 00:15 250 MLS/HR Lab Laboratory Tests Test 05/18/19 05:30 05/18/19 09:10 White Blood Count 11.6 x10^3/uL (4.0-11.0) Red Blood Count 2.73 x10^6/uL (4.30-5.70) Hemoglobin 7.5 g/dL (13.0-17.5) Hematocrit 23.7 % (39.0-53.0) Mean Corpuscular Volume 87 fL (79-100) Mean Corpuscular Hemoglobin 28 pg (25-35) Mean Corpuscular Hemoglobin Concent 32 g/dL (31-37) Red Cell Distribution Width 22.4 % (11.5-14.5) Platelet Count 175 x10^3/uL (140-400) Neutrophils (%) (Auto) 87 % (31-73) Lymphocytes (%) (Auto) 2 % (24-48) Monocytes (%) (Auto) 7 % (0-9) Eosinophils (%) (Auto) 2 % (0-3) Basophils (%) (Auto) 1 % (0-3) Neutrophils # (Auto) 10.1 x10^3/uL (1.8-7.7) Lymphocytes # (Auto) 0.3 x10^3/uL (1.0-4.8) Monocytes # (Auto) 0.8 x10^3/uL (0.0-1.1) Eosinophils # (Auto) 0.3 x10^3/uL (0.0-0.7) Basophils # (Auto) 0.1 x10^3/uL (0.0-0.2) Sodium Level 138 mmol/L (136-145) Potassium Level 4.2 mmol/L (3.5-5.1) Chloride Level 100 mmol/L (98-107) Carbon Dioxide Level 27 mmol/L (21-32) Anion Gap 11 (6-14) Blood Urea Nitrogen 84 mg/dL (8-26) Creatinine 3.8 mg/dL (0.7-1.3) Estimated GFR (Cockcroft-Gault) 15.5 Glucose Level 200 mg/dL (70-99) Calcium Level 8.5 mg/dL (8.5-10.1) Prothrombin Time 25.2 SEC (11.7-14.0) Prothromb Time International Ratio 2.3 (0.8-1.1) Results All relevant outside records, renal labs, imaging studies, telemetry/EKG's were reviewed. Other The right kidney measures 10.6 x 5.0 x 5.6 cm. The left kidney measures 11.7 x 5.1 x 5.3 cm. Examination limited due to patient body habitus. Garcia catheter identified within the bladder. No evidence of hydronephrosis. ANTHONY ORDAZ MD May 18, 2019 09:53
--- NOTE | 2019-05-18 11:28 | PDOC ---
PULMONARY PROGRESS NOTES Subjective remains on room air, off levophed on room air, , however remains confused nursing reports no overnight concerns Vitals Vital Signs Date Time Temp Pulse Resp B/P (MAP) Pulse Ox O2 Delivery O2 Flow Rate FiO2 05/18/19 09:00 70 15 95/37 (56) 94 Room Air 05/18/19 08:00 98.2 98.2 ROS: No Chest Pain, No Increase Cough General: No acute distress, Confused Lungs: Other (decrease left base) Cardiovascular: S1, S2 Abdomen: Soft, Non-tender Neuro Exam: Alert Skin: Other (BLE BKA) Labs Laboratory Tests Test 05/17/19 05:30 05/18/19 05:30 05/18/19 09:10 White Blood Count 12.7 x10^3/uL (4.0-11.0) 11.6 x10^3/uL (4.0-11.0) Red Blood Count 2.66 x10^6/uL (4.30-5.70) 2.73 x10^6/uL (4.30-5.70) Hemoglobin 7.3 g/dL (13.0-17.5) 7.5 g/dL (13.0-17.5) Hematocrit 23.2 % (39.0-53.0) 23.7 % (39.0-53.0) Mean Corpuscular Volume 87 fL (79-100) 87 fL (79-100) Mean Corpuscular Hemoglobin 28 pg (25-35) 28 pg (25-35) Mean Corpuscular Hemoglobin Concent 32 g/dL (31-37) 32 g/dL (31-37) Red Cell Distribution Width 22.2 % (11.5-14.5) 22.4 % (11.5-14.5) Platelet Count 169 x10^3/uL (140-400) 175 x10^3/uL (140-400) Neutrophils (%) (Auto) 91 % (31-73) 87 % (31-73) Lymphocytes (%) (Auto) 2 % (24-48) 2 % (24-48) Monocytes (%) (Auto) 5 % (0-9) 7 % (0-9) Eosinophils (%) (Auto) 2 % (0-3) 2 % (0-3) Basophils (%) (Auto) 1 % (0-3) 1 % (0-3) Neutrophils # (Auto) 11.6 x10^3/uL (1.8-7.7) 10.1 x10^3/uL (1.8-7.7) Lymphocytes # (Auto) 0.2 x10^3/uL (1.0-4.8) 0.3 x10^3/uL (1.0-4.8) Monocytes # (Auto) 0.6 x10^3/uL (0.0-1.1) 0.8 x10^3/uL (0.0-1.1) Eosinophils # (Auto) 0.3 x10^3/uL (0.0-0.7) 0.3 x10^3/uL (0.0-0.7) Basophils # (Auto) 0.1 x10^3/uL (0.0-0.2) 0.1 x10^3/uL (0.0-0.2) Prothrombin Time 31.7 SEC (11.7-14.0) 25.2 SEC (11.7-14.0) Prothromb Time International Ratio 3.1 (0.8-1.1) 2.3 (0.8-1.1) Sodium Level 135 mmol/L (136-145) 138 mmol/L (136-145) Potassium Level 5.2 mmol/L (3.5-5.1) 4.2 mmol/L (3.5-5.1) Chloride Level 100 mmol/L (98-107) 100 mmol/L (98-107) Carbon Dioxide Level 27 mmol/L (21-32) 27 mmol/L (21-32) Anion Gap 8 (6-14) 11 (6-14) Blood Urea Nitrogen 83 mg/dL (8-26) 84 mg/dL (8-26) Creatinine 3.9 mg/dL (0.7-1.3) 3.8 mg/dL (0.7-1.3) Estimated GFR (Cockcroft-Gault) 15.0 15.5 BUN/Creatinine Ratio 21 (6-20) Glucose Level 143 mg/dL (70-99) 200 mg/dL (70-99) Calcium Level 8.4 mg/dL (8.5-10.1) 8.5 mg/dL (8.5-10.1) Total Bilirubin 0.9 mg/dL (0.2-1.0) Aspartate Amino Transf (AST/SGOT) 13 U/L (15-37) Alanine Aminotransferase (ALT/SGPT) < 6 U/L (16-63) Alkaline Phosphatase 86 U/L (46-116) Total Protein 6.1 g/dL (6.4-8.2) Albumin 2.5 g/dL (3.4-5.0) Albumin/Globulin Ratio 0.7 (1.0-1.7) Laboratory Tests Test 05/18/19 05:30 05/18/19 09:10 White Blood Count 11.6 x10^3/uL (4.0-11.0) Red Blood Count 2.73 x10^6/uL (4.30-5.70) Hemoglobin 7.5 g/dL (13.0-17.5) Hematocrit 23.7 % (39.0-53.0) Mean Corpuscular Volume 87 fL (79-100) Mean Corpuscular Hemoglobin 28 pg (25-35) Mean Corpuscular Hemoglobin Concent 32 g/dL (31-37) Red Cell Distribution Width 22.4 % (11.5-14.5) Platelet Count 175 x10^3/uL (140-400) Neutrophils (%) (Auto) 87 % (31-73) Lymphocytes (%) (Auto) 2 % (24-48) Monocytes (%) (Auto) 7 % (0-9) Eosinophils (%) (Auto) 2 % (0-3) Basophils (%) (Auto) 1 % (0-3) Neutrophils # (Auto) 10.1 x10^3/uL (1.8-7.7) Lymphocytes # (Auto) 0.3 x10^3/uL (1.0-4.8) Monocytes # (Auto) 0.8 x10^3/uL (0.0-1.1) Eosinophils # (Auto) 0.3 x10^3/uL (0.0-0.7) Basophils # (Auto) 0.1 x10^3/uL (0.0-0.2) Sodium Level 138 mmol/L (136-145) Potassium Level 4.2 mmol/L (3.5-5.1) Chloride Level 100 mmol/L (98-107) Carbon Dioxide Level 27 mmol/L (21-32) Anion Gap 11 (6-14) Blood Urea Nitrogen 84 mg/dL (8-26) Creatinine 3.8 mg/dL (0.7-1.3) Estimated GFR (Cockcroft-Gault) 15.5 Glucose Level 200 mg/dL (70-99) Calcium Level 8.5 mg/dL (8.5-10.1) Prothrombin Time 25.2 SEC (11.7-14.0) Prothromb Time International Ratio 2.3 (0.8-1.1) Medications Active Scripts Medications Dose Route/Sig Max Daily Dose Days Date Category Trazodone Hcl 100 Mg Tablet 1 Tab PO QHS 05/16/19 Reported Tramadol Hcl 50 Mg Tablet 50 Mg PO Q8HRS 05/16/19 Reported Torsemide 20 Mg Tablet 100 Mg PO BID 05/16/19 Reported Temazepam 15 Mg Capsule 1 Cap PO QHS 05/16/19 Reported Sinemet Cr 25-100 Tablet (Carbidopa/Levodopa) 1 Each Tablet.er 1 Tab PO TID 05/16/19 Reported Simethicone 80 Mg Tab.chew 80 Mg PO PRN Q6HRS PRN 05/16/19 Reported Senna Plus 8.6-50 mg Tablet (Sennosides/Docusate Sodium) 1 Each Tablet 1 Each PO BID 05/16/19 Reported Renvela (Sevelamer Carbonate) 800 Mg Tablet 3 Tab PO TIDAC 05/16/19 Reported Protonix (Pantoprazole Sodium) 40 Mg Tablet.dr 40 Mg PO DAILYAC 05/16/19 Reported Pravastatin Sodium 20 Mg Tablet 1 Tab PO HS 05/16/19 Reported Potassium Chloride 20 Meq Tablet.er 2 Tab PO DAILY 05/16/19 Reported Klor-Con M20 (Potassium Chloride) 20 Meq Tab.er.prt 1 Tab PO PRN DAILY PRN 05/16/19 Reported Novolog (Insulin Aspart) 100 Unit/1 Ml Cartridge 8 Unit SQ TIDBFRMEAL 05/16/19 Reported NITROGLYCERIN SubLingual (Nitroglycerin) 0.4 Mg Tab.subl 1 Tab SL UD PRN 05/16/19 Reported Miralax (Polyethylene Glycol 3350) 17 Gm Powd.pack 1 Packet PO BID 05/16/19 Reported Metoprolol Succinate ( Xl ) (Metoprolol Succinate) 25 Mg Tab.er.24h 1 Tab PO DAILY 05/16/19 Reported Metolazone 5 Mg Tablet 1.5 Tab PO DAILY 05/16/19 Reported Metolazone 2.5 Mg Tablet 2.5 Mg PO PRN DAILY PRN 05/16/19 Reported Melatonin 3 Mg Tablet 2 Tab PO QHS 05/16/19 Reported Levothyroxine Sodium 125 Mcg Tablet 1 Tab PO DAILY 05/16/19 Reported Lantus Solostar (Insulin Glargine,Hum.rec.anlog) 100 Unit/1 Ml Insuln.pen 12 Unit SQ QHS 05/16/19 Reported Acidophilus (Lactobacillus Acidophilus) 1 Each Capsule 1 Each PO DAILY 05/16/19 Reported Glucose Gel (Dextrose) 38 Gm Gel..gram. 38 Gm PO PRN PRN 05/16/19 Reported Gabapentin (Gabapentin) 100 Mg Capsule 100 Mg PO TID 05/16/19 Reported Flonase Allergy Relief (Fluticasone Propionate) 9.9 Ml Osborne.susp 2 Sprays NS DAILY 05/16/19 Reported Fleet Enema (Na Phos,M-B/Na Phos,Di-Ba) 133 Ml Enema 133 Ml RC PRN PRN 05/16/19 Reported Ferrous Gluconate 240 Mg Tablet 240 Mg PO DAILY 05/16/19 Reported Uloric (Febuxostat) 80 Mg Tablet 1 Tab PO DAILY 05/16/19 Reported Cymbalta (Duloxetine Hcl) 60 Mg Capsule.dr 1 Cap PO HS 05/16/19 Reported Cymbalta (Duloxetine Hcl) 30 Mg Capsule.dr 1 Cap PO DAILY 05/16/19 Reported Vitamin B-12 (Cyanocobalamin (Vitamin B-12)) 1,000 Mcg Tablet 1 Tab PO DAILY 05/16/19 Reported Coumadin (Warfarin Sodium) 2 Mg Tablet 1 Tab PO DAILY 05/16/19 Reported Vitamin D3 (Cholecalciferol (Vitamin D3)) 5,000 Unit Tablet 1 Tab PO DAILY 05/16/19 Reported Buspirone Hcl 5 Mg Tablet 1 Tab PO BID 05/16/19 Reported Bisacodyl 10 Mg Supp.rect 10 Mg RC PRN DAILY PRN 05/16/19 Reported Tylenol (Acetaminophen) 325 Mg Tablet 2 Tab PO PRN Q6HRS PRN 05/16/19 Reported Sertraline Hcl 100 Mg Tablet 100 Mg PO DAILY 03/08/16 Reported Aspir 81 (Aspirin) 81 Mg Tablet.dr 1 Tab PO DAILY 03/08/16 Reported Novolog Flexpen (Insulin Aspart) 300 Units/3 Ml Insuln.pen 8 Units SQ TIDWMEALS 06/19/[address] CHEST 1. Moderate left lower lobe lung consolidation with moderate size left pleural effusion identified. 2. Moderate prominent appearing bilateral interstitial lung markings likely congestive changes. 3. Cholelithiasis. Electronically signed by: Austen Biggs MD (05/17/2019 9:42 AM) [place] [id number] Impression . 1. Dyspnea with acute hypoxic respiratory failure. likely interstitial edema. 2. Acute kidney injury on chronic kidney disease. 3. Abnormal chest x-ray with bilateral interstitial infiltrates with left-sided pleural effusion along with cardiomegaly c/w decompensated Systolic HF 5. Chronic anticoagulation 6. Cardiomyopathy EF 40-45%-stable 7. Hypotension --resolved 8. Encephalopathy , per neuro Plan . 1. Continue with antibiotic per ID. zosyn/zyvox 2. Noncontrast CT chest reviewed. Monitor effusion for now, asymptomatic at present 3. Monitor white cell count. 4. EF 40-45% 5. Hold further IV fluids 6. Monitor renal function. 7. Follow Neurology recommendations. 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 8. Follow nephrology recs Discussed with RN and Family MARY PALM MD May 18, 2019 11:28
[2019-05-18] MEDS: AMINO AC 3%/ELECTROLYTE/GLYCER 1,000 ML IV SCH ×2 (12:31→22:24)
--- NOTE | 2019-05-18 12:44 | PDOC ---
CARDIO Progress Notes Date and Time Date of Service 05/18/2019 Time of Evaluation 1220 Subjective Subjective: Other (still confuse but pleasant) Vitals Vitals Vital Signs Date Time Temp Pulse Resp B/P (MAP) Pulse Ox O2 Delivery O2 Flow Rate FiO2 05/18/19 09:00 70 15 95/37 (56) 94 Room Air 05/18/19 08:00 98.2 98.2 Weight Weight [ ] Input and Output Intake and Output Intake and Output 05/18/19 06:59 Intake Total 644 ml Output Total 1360 ml Balance -716 ml IV Total 644 ml Output Urine Total 1360 ml Laboratory Labs Laboratory Tests Test 05/18/19 05:30 05/18/19 09:10 White Blood Count 11.6 x10^3/uL (4.0-11.0) Red Blood Count 2.73 x10^6/uL (4.30-5.70) Hemoglobin 7.5 g/dL (13.0-17.5) Hematocrit 23.7 % (39.0-53.0) Mean Corpuscular Volume 87 fL (79-100) Mean Corpuscular Hemoglobin 28 pg (25-35) Mean Corpuscular Hemoglobin Concent 32 g/dL (31-37) Red Cell Distribution Width 22.4 % (11.5-14.5) Platelet Count 175 x10^3/uL (140-400) Neutrophils (%) (Auto) 87 % (31-73) Lymphocytes (%) (Auto) 2 % (24-48) Monocytes (%) (Auto) 7 % (0-9) Eosinophils (%) (Auto) 2 % (0-3) Basophils (%) (Auto) 1 % (0-3) Neutrophils # (Auto) 10.1 x10^3/uL (1.8-7.7) Lymphocytes # (Auto) 0.3 x10^3/uL (1.0-4.8) Monocytes # (Auto) 0.8 x10^3/uL (0.0-1.1) Eosinophils # (Auto) 0.3 x10^3/uL (0.0-0.7) Basophils # (Auto) 0.1 x10^3/uL (0.0-0.2) Sodium Level 138 mmol/L (136-145) Potassium Level 4.2 mmol/L (3.5-5.1) Chloride Level 100 mmol/L (98-107) Carbon Dioxide Level 27 mmol/L (21-32) Anion Gap 11 (6-14) Blood Urea Nitrogen 84 mg/dL (8-26) Creatinine 3.8 mg/dL (0.7-1.3) Estimated GFR (Cockcroft-Gault) 15.5 Glucose Level 200 mg/dL (70-99) Calcium Level 8.5 mg/dL (8.5-10.1) Prothrombin Time 25.2 SEC (11.7-14.0) Prothromb Time International Ratio 2.3 (0.8-1.1) Microbiology Micro Microbiology 05/16/19 Blood Culture - Preliminary, Resulted NO GROWTH AFTER 2 DAYS Physical Exam HEENT: Neck Supple W Full Motion Chest: Symmetric LUNGS: Clear to Auscultation Heart: RRR (paced) Abdomen: Soft N/T Extremities: Other (2+ bilateral LE pitting edema) Neurology: alert, confused Assessment Assessment 1. Sepsis: ID following 2. Metabolic encephalopathy 3. Acute respiratory failure with acute CHF and pleural effusion 4. 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 CAD s/p CABG 03/06 with MINOR to LAD, SVG to RCA, seq SVG to diag and OM. Follows with Dr. Ordonez with MAC 6. ICM s/o AICD/CRTD ([employer]), paced rhythm with underlying afib 7 ABBY on CKD3; uremic, unchanged but UOP improving, Nephrology following 8. Hypertension: marginal but stable. Off levophed 9. Hyperlipidemia 10. Chronic AFIB: paced and rate controlled. 11. Diabetes, II 12. Anemia of chronic disease 13. Hypothyroidism 14. Subacute cerebellar infarct: per neurology Recommendations 1. Lasix PRN, dose today 2. INR at 2.3. Warfarin on hold just in case HD cath is to be placed. Monitor Hgb, Start on ECASA low dose 4. Continue secondary prevention if able to swallow. 5. Will restart BP meds soon per BP trend, Supportive care. MELINA GREER APRN May 18, 2019 12:44
[2019-05-18] MEDS ORDERED: FUROSEMIDE 40 MG/4 ML VIAL. IVP ONE (15:00)
[2019-05-18] MEDS: METOPROLOL SUCC 24HR ER 25 MG TAB.ER.24H. PO SCH (15:00)
[2019-05-18] MEDS: ASPIRIN ENTERIC COATED 81 MG TABLET.DR. PO SCH (15:38)
[2019-05-18] MEDS: INSULIN LISPRO 300 UNITS/3 ML VIAL. SQ SCH ×2 (17:00→17:47)
[2019-05-18] MEDS ORDERED: IV DEXTROSE 5% 250 ML BAG. IV PRN (17:00)
[2019-05-18] MEDS ORDERED: DEXTROSE 50% 25 GM / 50ML DISP.SYRIN. IV PRN (17:00)
[2019-05-18] MEDS: INSULIN GLARGINE SYRINGE. SQ SCH (21:20)
[2019-05-19] MEDS: PIPERACILLIN/TAZOBACTAM 2.25 GM in IV NORMAL SALINE 50ML 50 ML IV SCH ×4 (00:19→17:49)
[2019-05-19 03:42] VITALS: BP 132/57
[2019-05-19 07:35] VITALS: BP 113/33
--- NOTE | 2019-05-19 08:38 | PDOC ---
PROGRESS NOTES Chief Complaint Chief Complaint Severe sepsis Metabolic encephalopathy Hx CVA weakness and debility pleural effusion CHF obesity, BMI 35 RUE ? cellulitis Pneumonia ABBY on CKD - likely this is vasomotor nephropathy due to poor PO intake Afib Cerebellar infarct - on CT scan, ? age Cardiomyopathy with pacemaker Severe protein calorie malnutrition History of Present Illness History of Present Illness Mr Londoon is a 78yo M SN[facility] resident w/ PMHx AFIB (/flutter), CAD, CHF, HTN, Hyperlipidemia, CHF s/p AICD/Pacemaker who had altered mental status starting the prior to admission. He had an abnormal CT of the head, but also had profound hypotension and was being treated for sepsis. He denies any history of stroke, seizure, or head injury. We do not have a good idea of his intellectual baseline as family is not available. Transferred from ICU on 05/18. He wakes up for me, tracks with eyes, but does not verbally respond. 05/18, can transfer out of ICU pt and ot and speech start IV nutrition, may be able to take PO soon, getting better pleural effusion from CHF most likely 05/17/19, Dr. Diop Pt was seen and examined today in the ICU DW Nurse about pleural effusion on CXR Vitals Vitals Vital Signs Date Time Temp Pulse Resp B/P (MAP) Pulse Ox O2 Delivery O2 Flow Rate FiO2 05/19/19 07:35 98.9 70 18 113/33 (59) 95 Room Air 98.9 Physical Exam Physical Exam CONSTITUTIONAL: Alert and in NAD HEENT: His conjunctivae are normal. OC/OP- clean NECK: Supple. No JVD. Right IJ without signs of any complications. HEART: S1, S2 with a 2/6 murmur. Pacemaker without signs of complications. ABDOMEN: Soft, nontender. No guarding. GENITOURINARY: Has a Garcia in place. EXTREMITIES: Bilateral lower extremity BKAs, without any wounds. His right upper extremity has area of erythema and warmth that has improved and is drying. There is less tenderness on deep palpation, but there is no gross induration or fullness. SKIN: Otherwise, warm without signs of rash. NEUROLOGIC: He did awaken, but would not answer any questions. IV: RIJ clean General: Alert, Cooperative, No acute distress, Other (oriented to person only) Heart: Regular rate, Normal S1, Normal S2, Other (3/6 systolic murmur ) Lungs: Other (decrease left base) Abdomen: Normal bowel sounds, Soft Extremities: No clubbing, Other (bilateral BKA, trace edema ) Skin: No rashes Labs LABS Laboratory Tests Test 05/18/19 09:10 05/18/19 17:12 05/18/19 21:17 05/19/19 07:46 Prothrombin Time 25.2 SEC (11.7-14.0) Prothromb Time International Ratio 2.3 (0.8-1.1) Glucose (Fingerstick) 232 mg/dL (70-99) 283 mg/dL (70-99) 258 mg/dL (70-99) Assessment and Plan Assessmemt and Plan Problems Medical Problems: (1) Acute kidney injury superimposed on CKD Status: Acute (2) Acute on chronic combined systolic (congestive) and diastolic (congestive) heart failure Status: Acute (3) Acute respiratory failure Status: Acute (4) Acute respiratory failure with hypoxia Status: Acute (5) ABBY (acute kidney injury) Status: Acute (6) CAD (coronary artery disease) Status: Chronic (7) Chronic a-fib Status: Chronic (8) Chronic kidney disease, stage 4 (severe) Status: Acute (9) CKD (chronic kidney disease), stage III Status: Chronic (10) CVA (cerebral vascular accident) Status: Acute (11) DM2 (diabetes mellitus, type 2) Status: Chronic (12) Dyspnea Status: Acute (13) HCAP (healthcare-associated pneumonia) Status: Acute (14) Metabolic encephalopathy Status: Acute (15) Pleural effusion on left Status: Acute (16) Pleural effusion, left Status: Acute (17) Pulmonary edema Status: Acute (18) Sepsis Status: Acute (19) Severe sepsis Status: Acute Comment Review of Relevant I have reviewed the following items nestor (where applicable) has been applied. Labs Laboratory Tests Test 05/18/19 05:30 05/18/19 09:10 05/18/19 17:12 05/18/19 21:17 White Blood Count 11.6 x10^3/uL (4.0-11.0) Red Blood Count 2.73 x10^6/uL (4.30-5.70) Hemoglobin 7.5 g/dL (13.0-17.5) Hematocrit 23.7 % (39.0-53.0) Mean Corpuscular Volume 87 fL (79-100) Mean Corpuscular Hemoglobin 28 pg (25-35) Mean Corpuscular Hemoglobin Concent 32 g/dL (31-37) Red Cell Distribution Width 22.4 % (11.5-14.5) Platelet Count 175 x10^3/uL (140-400) Neutrophils (%) (Auto) 87 % (31-73) Lymphocytes (%) (Auto) 2 % (24-48) Monocytes (%) (Auto) 7 % (0-9) Eosinophils (%) (Auto) 2 % (0-3) Basophils (%) (Auto) 1 % (0-3) Neutrophils # (Auto) 10.1 x10^3/uL (1.8-7.7) Lymphocytes # (Auto) 0.3 x10^3/uL (1.0-4.8) Monocytes # (Auto) 0.8 x10^3/uL (0.0-1.1) Eosinophils # (Auto) 0.3 x10^3/uL (0.0-0.7) Basophils # (Auto) 0.1 x10^3/uL (0.0-0.2) Sodium Level 138 mmol/L (136-145) Potassium Level 4.2 mmol/L (3.5-5.1) Chloride Level 100 mmol/L (98-107) Carbon Dioxide Level 27 mmol/L (21-32) Anion Gap 11 (6-14) Blood Urea Nitrogen 84 mg/dL (8-26) Creatinine 3.8 mg/dL (0.7-1.3) Estimated GFR (Cockcroft-Gault) 15.5 Glucose Level 200 mg/dL (70-99) Calcium Level 8.5 mg/dL (8.5-10.1) Prothrombin Time 25.2 SEC (11.7-14.0) Prothromb Time International Ratio 2.3 (0.8-1.1) Glucose (Fingerstick) 232 mg/dL (70-99) 283 mg/dL (70-99) Test 05/19/19 07:46 Glucose (Fingerstick) 258 mg/dL (70-99) Laboratory Tests Test 05/18/19 09:10 05/18/19 17:12 9/20/19 21:17 05/19/19 07:46 Prothrombin Time 25.2 SEC (11.7-14.0) Prothromb Time International Ratio 2.3 (0.8-1.1) Glucose (Fingerstick) 232 mg/dL (70-99) 283 mg/dL (70-99) 258 mg/dL (70-99) Microbiology 05/16/19 Blood Culture - Preliminary, Resulted NO GROWTH AFTER 3 DAYS Medications Current Medications Vancomycin HCl (Vanco Per Pharmacy) 1 each PRN DAILY PRN MC SEE COMMENTS Last administered on 05/16/19at 02:12; Start 05/15/19 at 23:00; Stop 05/17/19 at 06:52; Status DC Levofloxacin/ Dextrose 150 ml @ 100 mls/hr 1X ONCE IV Last administered on 05/16/19at 00:17; Start 05/15/19 at 23:30; Stop 05/16/19 at 00:59; Status DC Sodium Chloride 1,000 ml @ 1,000 mls/hr 1X ONCE IV ; Start 05/15/19 at 23:30; Stop 05/16/19 at 00:29; Status DC Sodium Chloride 1,000 ml @ 1,000 mls/hr 1X ONCE IV Last administered on 05/16/19at 00:17; Start 05/15/19 at 23:30; Stop 05/16/19 at 00:29; Status DC Sodium Chloride 1,000 ml @ 1,000 mls/hr 1X ONCE IV Last administered on 05/16/19at 00:17; Start 05/15/19 at 23:30; Stop 05/16/19 at 00:29; Status DC Vancomycin HCl 2 gm/Sodium Chloride 500 ml @ 250 mls/hr 1X ONCE IV Last administered on 05/16/19at 00:15; Start 05/16/19 at 00:00; Stop 05/16/19 at 01:59; Status DC Ondansetron HCl (Zofran) 4 mg PRN Q8HRS PRN IV NAUSEA/VOMITING 1ST CHOICE; Start 05/16/19 at 01:45; Stop 05/17/19 at 01:44; Status DC Vancomycin HCl 1.25 gm/Sodium Chloride 250 ml @ 167 mls/hr Q48H IV ; Start 05/18/19 at 00:00; Stop 05/17/19 at 06:52; Status DC Vancomycin HCl (Vancomycin Trough Level) 1 each 1X ONCE MC ; Start 05/19/19 at 23:30; Stop 05/17/19 at 07:19; Status DC Albumin Human 100 ml @ 100 mls/hr 1X ONCE IV Last administered on 05/16/19at 04:14; Start 05/16/19 at 04:30; Stop 05/16/19 at 05:29; Status DC Norepinephrine Bitartrate 250 ml @ 17.031 mls/ hr CONT PRN IV SEE I/O RECORD L ast administered on 05/16/19at 04:21; Start 05/16/19 at 04:00 Info (FLU VACCINE SCREEN per RX) 1 each 1X ONCE MC ; Start 05/16/19 at 05:00; Stop 05/16/19 at 05:01; Status UNV Albumin Human 250 ml @ 125 mls/hr 1X ONCE IV Last administered on 05/16/19at 0 5:11; Start 05/16/19 at 05:30; Stop 05/16/19 at 07:29; Status DC Piperacillin Sod/ Tazobactam Sod 2.25 gm/Sodium Chloride 50 ml @ 100 mls/hr Q6HRS IV Last administered on 05/19/19at 05:48; Start 05/16/19 at 13:00 Linezolid/Dextrose 300 ml @ 300 mls/hr Q12HR IV Last administered on 05/18/19at 22:15; Start 05/17/19 at 09:00 Furosemide (Lasix) 40 mg 1X ONCE IVP Last administered on 05/17/19at 15:47; Start 05/17/19 at 15:45; Stop 05/17/19 at 15:46; Status DC Amino Acids/ Glycerin/ Electrolytes 1,000 ml @ 80 mls/hr [id number] IV Last administered on 05/18/19at 12:31; Start 05/18/19 at 10:00 Aspirin (Ecotrin) 81 mg [id number] PO Last administered on 05/18/19at 15:39; Start 05/18/19 at 12:45 Furosemide (Lasix) 40 mg 1X ONCE IVP Last administered on 05/18/19at 15:39; Start 05/18/19 at 15:00; Stop 05/18/19 at 15:01; Status DC Metoprolol Succinate (Toprol Xl) 25 mg DAILY PO ; Start 05/18/19 at 15:00 Insulin Glargine (Lantus Syringe) 12 unit QHS SQ Last administered on 05/18/19at 21:20; Start 05/18/19 at 21:00 Insulin Human Lispro (HumaLOG) 0-5 UNITS TIDWMEALS SQ ; Start 05/18/19 at 17:00 Dextrose (Dextrose 50%-Water Syringe) 12.5 gm PRN Q15MIN PRN IV SEE COMMENTS; Start 05/18/19 at 17:00 Dextrose 250 ml PRN Q15MIN PRN IV SEE COMMENTS; Start 05/18/19 at 17:00 Insulin Human Lispro (HumaLOG) 6 units TIDWMEALS SQ Last administered on 05/18/19at 17:48; Start 05/18/19 at 17:00 Active Scripts Active Novolog Flexpen (Insulin Aspart) 300 Units/3 Ml Insuln.pen 8 Units SQ TIDWMEALS Reported Trazodone Hcl 100 Mg Tablet 1 Tab PO QHS Tramadol Hcl 50 Mg Tablet 50 Mg PO Q8HRS Torsemide 20 Mg Tablet 100 Mg PO BID Temazepam 15 Mg Capsule 1 Cap PO QHS Sinemet Cr 25-100 Tablet (Carbidopa/Levodopa) 1 Each Tablet.er 1 Tab PO TID Simethicone 80 Mg Tab.chew 80 Mg PO PRN Q6HRS PRN Senna Plus 8.6-50 mg Tablet (Sennosides/Docusate Sodium) 1 Each Tablet 1 Each PO BID Renvela (Sevelamer Carbonate) 800 Mg Tablet 3 Tab PO TIDAC Protonix (Pantoprazole Sodium) 40 Mg Tablet.dr 40 Mg PO DAILYAC Pravastatin Sodium 20 Mg Tablet 1 Tab PO HS Potassium Chloride 20 Meq Tablet.er 2 Tab PO DAILY Klor-Con M20 (Potassium Chloride) 20 Meq Tab.er.prt 1 Tab PO PRN DAILY PRN Novolog (Insulin Aspart) 100 Unit/1 Ml Cartridge 8 Unit SQ TIDBFRMEAL NITROGLYCERIN SubLingual (Nitroglycerin) 0.4 Mg Tab.subl 1 Tab SL UD PRN Miralax (Polyethylene Glycol 3350) 17 Gm Powd.pack 1 Packet PO BID Metoprolol Succinate ( Xl ) (Metoprolol Succinate) 25 Mg Tab.er.24h 1 Tab PO DAILY Metolazone 5 Mg Tablet 1.5 Tab PO DAILY Metolazone 2.5 Mg Tablet 2.5 Mg PO PRN DAILY PRN Melatonin 3 Mg Tablet 2 Tab PO QHS Levothyroxine Sodium 125 Mcg Tablet 1 Tab PO DAILY Lantus Solostar (Insulin Glargine,Hum.rec.anlog) 100 Unit/1 Ml Insuln.pen 12 Unit SQ QHS Acidophilus (Lactobacillus Acidophilus) 1 Each Capsule 1 Each PO DAILY Glucose Gel (Dextrose) 38 Gm Gel..gram. 38 Gm PO PRN PRN Gabapentin (Gabapentin) 100 Mg Capsule 100 Mg PO TID Flonase Allergy Relief (Fluticasone Propionate) 9.9 Ml Elmo.susp 2 Sprays NS DAILY Fleet Enema (Na Phos,M-B/Na Phos,Di-Ba) 133 Ml Enema 133 Ml RC PRN PRN Ferrous Gluconate 240 Mg Tablet 240 Mg PO DAILY Uloric (Febuxostat) 80 Mg Tablet 1 Tab PO DAILY Cymbalta (Duloxetine Hcl) 60 Mg Capsule.dr 1 Cap PO HS Cymbalta (Duloxetine Hcl) 30 Mg Capsule.dr 1 Cap PO DAILY Vitamin B-12 (Cyanocobalamin (Vitamin B-12)) 1,000 Mcg Tablet 1 Tab PO DAILY Coumadin (Warfarin Sodium) 2 Mg Tablet 1 Tab PO DAILY Vitamin D3 (Cholecalciferol (Vitamin D3)) 5,000 Unit Tablet 1 Tab PO DAILY Buspirone Hcl 5 Mg Tablet 1 Tab PO BID Bisacodyl 10 Mg Supp.rect 10 Mg RC PRN DAILY PRN Tylenol (Acetaminophen) 325 Mg Tablet 2 Tab PO PRN Q6HRS PRN Sertraline Hcl 100 Mg Tablet 100 Mg PO DAILY Aspir 81 (Aspirin) 81 Mg Tablet.dr 1 Tab PO DAILY Vitals/I & O Vital Sign - Last 24 Hours 05/18/19 05/18/19 05/18/19 05/18/19 09:00 10:00 11:00 12:00 Temp 99.0 99.0 Pulse 70 70 69 70 Resp 15 20 16 17 B/P (MAP) 95/37 (56) 93/47 (62) 95/46 (62) 109/60 (76) Pulse Ox 94 92 93 93 O2 Delivery Room Air Room Air Room Air Room Air 05/18/19 05/18/19 05/18/19 05/18/19 12:00 13:00 14:00 15:36 Pulse 69 70 70 Resp 16 17 B/P (MAP) 112/49 (70) 122/72 (89) 95/46 Pulse Ox 95 94 O2 Delivery Room Air Room Air Room Air 05/18/19 05/18/19 05/18/19 05/18/19 19:00 19:50 20:00 23:16 Temp 97.8 98.2 97.8 98.2 Pulse 81 70 70 Resp 22 18 18 B/P (MAP) 109/57 (74) 101/40 (60) 123/42 (69) Pulse Ox 91 96 91 O2 Delivery Room Air Room Air Room Air Room Air 05/19/19 05/19/19 03:42 07:35 Temp 99.3 98.9 99.3 98.9 Pulse 68 70 Resp 18 18 B/P (MAP) 132/57 (82) 113/33 (59) Pulse Ox 99 95 O2 Delivery Room Air Room Air Intake and Output 05/18/19 05/18/19 05/19/19 15:00 23:00 07:00 Intake Total 350 ml 651 ml Output Total 325 ml 300 ml 250 ml Balance 25 ml 351 ml -250 ml ABBY BLEVINS MD May 19, 2019 08:38
[2019-05-19] MEDS: ASPIRIN ENTERIC COATED 81 MG TABLET.DR. PO SCH (08:51)
[2019-05-19] MEDS: METOPROLOL SUCC 24HR ER 25 MG TAB.ER.24H. PO SCH (08:51)
[2019-05-19] MEDS: POLYETHYLENE GLYCOL 3350 17 GM PACKET. PO SCH ×2 (08:52→20:54)
[2019-05-19 09:40] LABS: PROTHROMBIN TIME PATIENT 20.1 SEC (11.7-14.0)
[2019-05-19 09:42] LABS: ALBUMIN 2.1 g/dL (3.4-5.0); CALCIUM 8.6 mg/dL (8.5-10.1); CREATININE 3.7 mg/dL (0.7-1.3); PHOSPHORUS 2.2 mg/dL (2.6-4.7); POTASSIUM 3.7 mmol/L (3.5-5.1)
[2019-05-19] MEDS: AMINO AC 3%/ELECTROLYTE/GLYCER 1,000 ML IV SCH (10:11)
[2019-05-19] MEDS: CARBIDOPA/LEVODOPA CR 25/100MG TABLET.SA. PO SCH ×3 (10:12→20:54)
[2019-05-19] MEDS: busPIRone 5 MG TABLET. PO SCH ×2 (10:12→20:54)
[2019-05-19] MEDS: LEVOTHYROXINE 125 MCG TABLET PO SCH (10:15)
[2019-05-19] MEDS: INSULIN LISPRO 300 UNITS/3 ML VIAL. SQ SCH ×6 (10:26→16:56)
[2019-05-19 11:25] VITALS: BP 114/72
--- NOTE | 2019-05-19 11:25 | PDOC ---
Infectious Disease Note Subjective Subjective Nonverbal No fevers reported Vital Sign Vital Signs Vital Signs Date Time Temp Pulse Resp B/P (MAP) Pulse Ox O2 Delivery O2 Flow Rate FiO2 05/19/19 08:52 70 113/33 05/19/19 07:35 98.9 18 95 Room Air 98.9 Physical Exam PHYSICAL EXAM GENERAL: Sleeping, arouses to name HEENT: OC/OP- clean NECK: Supple. HEART: S1, S2 with a 2/6 murmur. Pacemaker ABDOMEN: Soft, nontender. No guarding. GENITOURINARY: Garcia in place. EXTREMITIES: Bilateral lower extremity BKAs Mild RUE erythema and dryness SKIN: warm to touch NEUROLOGIC: Nonverbal RIJ clean Labs Lab Laboratory Tests Test 05/18/19 17:12 05/18/19 21:17 05/19/19 07:46 05/19/19 09:05 Glucose (Fingerstick) 232 mg/dL (70-99) 283 mg/dL (70-99) 258 mg/dL (70-99) Prothrombin Time 20.1 SEC (11.7-14.0) Prothromb Time International Ratio 1.7 (0.8-1.1) Sodium Level 139 mmol/L (136-145) Potassium Level 3.7 mmol/L (3.5-5.1) Chloride Level 101 mmol/L (98-107) Carbon Dioxide Level 29 mmol/L (21-32) Anion Gap 9 (6-14) Blood Urea Nitrogen 85 mg/dL (8-26) Creatinine 3.7 mg/dL (0.7-1.3) Estimated GFR (Cockcroft-Gault) 16.0 Glucose Level 254 mg/dL (70-99) Calcium Level 8.6 mg/dL (8.5-10.1) Phosphorus Level 2.2 mg/dL (2.6-4.7) Albumin 2.1 g/dL (3.4-5.0) Micro Microbiology 05/16/19 Blood Culture - Preliminary, Resulted NO GROWTH AFTER 3 DAYS Objective Assessment Sepsis POA - fever/Hypotension/pneumonia/Encephalopathy/ABBY. Elevated Procalcitonin but ? reliability in renal failure RUE ? cellulitis Pneumonia ABBY on CKD Cephalexin allergy but has tolerated Zosyn/Meropenem in past Leukocytosis - better L max ? sinusitis Afib Cerebellar infarct - ? age Cardiomyopathy with pacemaker Plan Plan of Care Cont Zosyn and Zyvox 05/17. MRSA screen neg but with pneumonia and detention resident is at risk/Cellulitis F/u am labs and cults Monitor RUE Attending Co-Sign The patient was seen and interviewed as well as examined at the bedside. The chart was reviewed. The case was discussed. Agree with the plan of care. THERESA YOUNG APRN May 19, 2019 11:25 ZULMA NICHOLS MD May 19, 2019 12:24
[2019-05-19] MEDS: SEVELAMER CARBONATE 800 MG TABLET. PO SCH ×2 (12:12→15:57)
--- NOTE | 2019-05-19 12:39 | PDOC ---
SUBJECTIVE ROS Stable OBJECTIVE Vital Signs Vital Signs Date Time Temp Pulse Resp B/P (MAP) Pulse Ox O2 Delivery O2 Flow Rate FiO2 05/19/19 08:52 70 113/33 05/19/19 07:35 98.9 18 95 Room Air 98.9 I & 0 Intake and Output 05/19/19 07:00 Intake Total 1001 ml Output Total 875 ml Balance 126 ml Intake Oral 180 ml IV Total 821 ml Output Urine Total 875 ml # Bowel Movements 2 PHYSICAL EXAM Physical Exam GENERAL: NAD HEEN-OM moist . On RA NECK: Supple. HEART: S1, S2 with a 2/6 murmur. Pacemaker without signs of complications. ABDOMEN: Soft, nontender. GENITOURINARY: Has a Garcia in place. EXTREMITIES: Bilateral lower extremity BKAs, No edema SKIN: No rash NEUROLOGIC: Recent Stroke, doesnt answer questions DIAGNOSIS/ASSESSMENT Assessment & Plan ABBY - ATN suspect sec to Sepsis/ Hypotension UA and Renal US unremarkable , UOP adquate, stable Stable renal function IVF boluses if BP stays low or UOP declines Supportive care, strict I/O , daily BMP avoid nephrotoxins Hyperkalemia- Resolved Sepsis with possible pneumonia: ID following CKD STAGE 3- at least since 2011, no prior labs Reviewed records from our office ,Saw Dr. Jolly in 2016 Baseline Cr 1.5-2.2 (in 2017) no interval labs Lt pleural effusion - per card/Pulm Metabolic encephalopathy: Hx of CVA p Neurology following. 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% S/P IV Lasix 1 dose per cardiology ICM s/o AICD/CRTD , paced rhythm with underlying afib CAD s/p CABG 03/06 Chronic AFIB Diabetes, II Anemia of chronic disease- stable COMMENT/RELEVANT DATA Meds Current Medications Medications (Trade) Dose Ordered Sig/Adithya Start Time Stop Time Status Last Admin Dose Admin Albumin Human 250 ml @ 125 mls/hr 1X ONCE 05/16/19 05:30 05/16/19 07:29 DC 05/16/19 05:11 125 MLS/HR Amino Acids/ Glycerin/ Electrolytes 1,000 ml @ 80 mls/hr [id number] 05/18/19 10:00 05/19/19 10:27 80 MLS/HR Aspirin (Ecotrin) 81 mg [id number] 05/18/19 12:45 05/19/19 08:52 81 MG Buspirone HCl (Buspar) 5 mg BID 05/19/19 10:00 05/19/19 10:27 5 MG Carbidopa/Levodopa (Sinemet Cr) 1 tab.sa TID 05/19/19 09:00 05/19/19 10:27 1 TAB.SA Dextrose 250 ml PRN Q15MIN PRN 05/18/19 17:00 Dextrose (Dextrose 50%-Water Syringe) 12.5 gm PRN Q15MIN PRN 05/18/19 17:00 Furosemide (Lasix) 40 mg 1X ONCE 05/18/19 15:00 05/18/19 15:01 DC 05/18/19 15:39 40 MG Info (FLU VACCINE SCREEN per RX) 1 each 1X ONCE 05/16/19 05:00 05/16/19 05:01 UNV Insulin Glargine (Lantus Syringe) 12 unit QHS 05/18/19 21:00 05/18/19 21:20 12 UNIT Insulin Human Lispro (HumaLOG) 6 units TIDWMEALS 05/18/19 17:00 05/19/19 12:28 6 UNITS Levofloxacin/ Dextrose 150 ml @ 100 mls/hr 1X ONCE 05/15/19 23:30 05/16/19 00:59 DC 05/16/19 00:17 100 MLS/HR Levothyroxine Sodium (Synthroid) 125 mcg DAILY06 05/19/19 10:30 05/19/19 10:27 125 MCG Linezolid/Dextrose 300 ml @ 300 mls/hr Q12HR 05/17/19 09:00 05/19/19 09:21 300 MLS/HR Metoprolol Succinate (Toprol Xl) 25 mg DAILY 05/18/19 15:00 05/19/19 08:52 25 MG Norepinephrine Bitartrate 250 ml @ 17.031 mls/ hr CONT PRN 05/16/19 04:00 05/19/19 08:36 DC 05/16/19 04:21 3.406 MLS/HR Ondansetron HCl (Zofran) 4 mg PRN Q8HRS PRN 05/16/19 01:45 05/17/19 01:44 DC Piperacillin Sod/ Tazobactam Sod 2.25 gm/Sodium Chloride 50 ml @ 100 mls/hr Q6HRS 05/16/19 13:00 05/19/19 12:28 100 MLS/HR Polyethylene Glycol (miraLAX PACKET) 17 gm BID 05/19/19 09:00 05/19/19 08:52 17 GM Sevelamer Carbonate (Renvela) 2,400 mg TIDAC 05/19/19 11:30 05/19/19 12:28 2,400 MG Sodium Chloride 1,000 ml @ 1,000 mls/hr 1X ONCE 05/15/19 23:30 05/16/19 00:29 DC 05/16/19 00:17 1,000 MLS/HR Vancomycin HCl (Vanco Per Pharmacy) 1 each PRN DAILY PRN 05/15/19 23:00 05/17/19 06:52 DC 05/16/19 02:12 1 EACH Vancomycin HCl (Vancomycin Trough Level) 1 each 1X ONCE 05/19/19 23:30 05/17/19 07:19 DC Vancomycin HCl 1.25 gm/Sodium Chloride 250 ml @ 167 mls/hr Q48H 05/18/19 00:00 05/17/19 06:52 DC Vancomycin HCl 2 gm/Sodium Chloride 500 ml @ 250 mls/hr 1X ONCE 05/16/19 00:00 05/16/19 01:59 DC 05/16/19 00:15 250 MLS/HR Lab Laboratory Tests Test 05/18/19 17:12 05/18/19 21:17 05/19/19 07:46 05/19/19 09:05 Glucose (Fingerstick) 232 mg/dL (70-99) 283 mg/dL (70-99) 258 mg/dL (70-99) Prothrombin Time 20.1 SEC (11.7-14.0) Prothromb Time International Ratio 1.7 (0.8-1.1) Sodium Level 139 mmol/L (136-145) Potassium Level 3.7 mmol/L (3.5-5.1) Chloride Level 101 mmol/L (98-107) Carbon Dioxide Level 29 mmol/L (21-32) Anion Gap 9 (6-14) Blood Urea Nitrogen 85 mg/dL (8-26) Creatinine 3.7 mg/dL (0.7-1.3) Estimated GFR (Cockcroft-Gault) 16.0 Glucose Level 254 mg/dL (70-99) Calcium Level 8.6 mg/dL (8.5-10.1) Phosphorus Level 2.2 mg/dL (2.6-4.7) Albumin 2.1 g/dL (3.4-5.0) Test 05/19/19 11:46 Glucose (Fingerstick) 246 mg/dL (70-99) Results All relevant outside records, renal labs, imaging studies, telemetry/EKG's were reviewed. ANTHONY ORDAZ MD May 19, 2019 12:39
[2019-05-19 15:05] VITALS: BP 147/42
--- NOTE | 2019-05-19 17:31 | PDOC ---
PULMONARY PROGRESS NOTES Subjective remains on room air, off levophed on room air, , however remains confused nursing reports no overnight concerns Vitals Vital Signs Date Time Temp Pulse Resp B/P (MAP) Pulse Ox O2 Delivery O2 Flow Rate FiO2 05/19/19 15:05 100.2 60 20 147/42 (77) 95 Room Air 100.2 05/19/19 08:00 3.0 ROS: No Increase Cough General: No acute distress, Confused Lungs: Other (decrease left base) Cardiovascular: S1, S2 Abdomen: Soft, Non-tender Neuro Exam: Alert Skin: Other (BLE BKA) Labs Laboratory Tests Test 05/18/19 05:30 05/18/19 09:10 05/18/19 17:12 05/18/19 21:17 White Blood Count 11.6 x10^3/uL (4.0-11.0) Red Blood Count 2.73 x10^6/uL (4.30-5.70) Hemoglobin 7.5 g/dL (13.0-17.5) Hematocrit 23.7 % (39.0-53.0) Mean Corpuscular Volume 87 fL (79-100) Mean Corpuscular Hemoglobin 28 pg (25-35) Mean Corpuscular Hemoglobin Concent 32 g/dL (31-37) Red Cell Distribution Width 22.4 % (11.5-14.5) Platelet Count 175 x10^3/uL (140-400) Neutrophils (%) (Auto) 87 % (31-73) Lymphocytes (%) (Auto) 2 % (24-48) Monocytes (%) (Auto) 7 % (0-9) Eosinophils (%) (Auto) 2 % (0-3) Basophils (%) (Auto) 1 % (0-3) Neutrophils # (Auto) 10.1 x10^3/uL (1.8-7.7) Lymphocytes # (Auto) 0.3 x10^3/uL (1.0-4.8) Monocytes # (Auto) 0.8 x10^3/uL (0.0-1.1) Eosinophils # (Auto) 0.3 x10^3/uL (0.0-0.7) Basophils # (Auto) 0.1 x10^3/uL (0.0-0.2) Sodium Level 138 mmol/L (136-145) Potassium Level 4.2 mmol/L (3.5-5.1) Chloride Level 100 mmol/L (98-107) Carbon Dioxide Level 27 mmol/L (21-32) Anion Gap 11 (6-14) Blood Urea Nitrogen 84 mg/dL (8-26) Creatinine 3.8 mg/dL (0.7-1.3) Estimated GFR (Cockcroft-Gault) 15.5 Glucose Level 200 mg/dL (70-99) Calcium Level 8.5 mg/dL (8.5-10.1) Prothrombin Time 25.2 SEC (11.7-14.0) Prothromb Time International Ratio 2.3 (0.8-1.1) Glucose (Fingerstick) 232 mg/dL (70-99) 283 mg/dL (70-99) Test 05/19/19 07:46 05/19/19 09:05 05/19/19 11:46 05/19/19 16:41 Glucose (Fingerstick) 258 mg/dL (70-99) 246 mg/dL (70-99) 74 mg/dL (70-99) Prothrombin Time 20.1 SEC (11.7-14.0) Prothromb Time International Ratio 1.7 (0.8-1.1) Sodium Level 139 mmol/L (136-145) Potassium Level 3.7 mmol/L (3.5-5.1) Chloride Level 101 mmol/L (98-107) Carbon Dioxide Level 29 mmol/L (21-32) Anion Gap 9 (6-14) Blood Urea Nitrogen 85 mg/dL (8-26) Creatinine 3.7 mg/dL (0.7-1.3) Estimated GFR (Cockcroft-Gault) 16.0 Glucose Level 254 mg/dL (70-99) Calcium Level 8.6 mg/dL (8.5-10.1) Phosphorus Level 2.2 mg/dL (2.6-4.7) Albumin 2.1 g/dL (3.4-5.0) Laboratory Tests Test 05/18/19 21:17 05/19/19 07:46 05/19/19 09:05 05/19/19 11:46 Glucose (Fingerstick) 283 mg/dL (70-99) 258 mg/dL (70-99) 246 mg/dL (70-99) Prothrombin Time 20.1 SEC (11.7-14.0) Prothromb Time International Ratio 1.7 (0.8-1.1) Sodium Level 139 mmol/L (136-145) Potassium Level 3.7 mmol/L (3.5-5.1) Chloride Level 101 mmol/L (98-107) Carbon Dioxide Level 29 mmol/L (21-32) Anion Gap 9 (6-14) Blood Urea Nitrogen 85 mg/dL (8-26) Creatinine 3.7 mg/dL (0.7-1.3) Estimated GFR (Cockcroft-Gault) 16.0 Glucose Level 254 mg/dL (70-99) Calcium Level 8.6 mg/dL (8.5-10.1) Phosphorus Level 2.2 mg/dL (2.6-4.7) Albumin 2.1 g/dL (3.4-5.0) Test 05/19/19 16:41 Glucose (Fingerstick) 74 mg/dL (70-99) Medications Active Scripts Medications Dose Route/Sig Max Daily Dose Days Date Category Trazodone Hcl 100 Mg Tablet 1 Tab PO QHS 05/16/19 Reported Tramadol Hcl 50 Mg Tablet 50 Mg PO Q8HRS 05/16/19 Reported Torsemide 20 Mg Tablet 100 Mg PO BID 05/16/19 Reported Temazepam 15 Mg Capsule 1 Cap PO QHS 05/16/19 Reported Sinemet Cr 25-100 Tablet (Carbidopa/Levodopa) 1 Each Tablet.er 1 Tab PO TID 05/16/19 Reported Simethicone 80 Mg Tab.chew 80 Mg PO PRN Q6HRS PRN 05/16/19 Reported Senna Plus 8.6-50 mg Tablet (Sennosides/Docusate Sodium) 1 Each Tablet 1 Each PO BID 05/16/19 Reported Renvela (Sevelamer Carbonate) 800 Mg Tablet 3 Tab PO TIDAC 05/16/19 Reported Protonix (Pantoprazole Sodium) 40 Mg Tablet.dr 40 Mg PO DAILYAC 05/16/19 Reported Pravastatin Sodium 20 Mg Tablet 1 Tab PO HS 05/16/19 Reported Potassium Chloride 20 Meq Tablet.er 2 Tab PO DAILY 05/16/19 Reported Klor-Con M20 (Potassium Chloride) 20 Meq Tab.er.prt 1 Tab PO PRN DAILY PRN 05/16/19 Reported Novolog (Insulin Aspart) 100 Unit/1 Ml Cartridge 8 Unit SQ TIDBFRMEAL 05/16/19 Reported NITROGLYCERIN SubLingual (Nitroglycerin) 0.4 Mg Tab.subl 1 Tab SL UD PRN 05/16/19 Reported Miralax (Polyethylene Glycol 3350) 17 Gm Powd.pack 1 Packet PO BID 05/16/19 Reported Metoprolol Succinate ( Xl ) (Metoprolol Succinate) 25 Mg Tab.er.24h 1 Tab PO DAILY 05/16/19 Reported Metolazone 5 Mg Tablet 1.5 Tab PO DAILY 05/16/19 Reported Metolazone 2.5 Mg Tablet 2.5 Mg PO PRN DAILY PRN 05/16/19 Reported Melatonin 3 Mg Tablet 2 Tab PO QHS 05/16/19 Reported Levothyroxine Sodium 125 Mcg Tablet 1 Tab PO DAILY 05/16/19 Reported Lantus Solostar (Insulin Glargine,Hum.rec.anlog) 100 Unit/1 Ml Insuln.pen 12 Unit SQ QHS 05/16/19 Reported Acidophilus (Lactobacillus Acidophilus) 1 Each Capsule 1 Each PO DAILY 05/16/19 Reported Glucose Gel (Dextrose) 38 Gm Gel..gram. 38 Gm PO PRN PRN 05/16/19 Reported Gabapentin (Gabapentin) 100 Mg Capsule 100 Mg PO TID 05/16/19 Reported Flonase Allergy Relief (Fluticasone Propionate) 9.9 Ml [place].susp 2 Sprays NS DAILY 05/16/19 Reported Fleet Enema (Na Phos,M-B/Na Phos,Di-Ba) 133 Ml Enema 133 Ml RC PRN PRN 05/16/19 Reported Ferrous Gluconate 240 Mg Tablet 240 Mg PO DAILY 05/16/19 Reported Uloric (Febuxostat) 80 Mg Tablet 1 Tab PO DAILY 05/16/19 Reported Cymbalta (Duloxetine Hcl) 60 Mg Capsule.dr 1 Cap PO HS 05/16/19 Reported Cymbalta (Duloxetine Hcl) 30 Mg Capsule.dr 1 Cap PO DAILY 05/16/19 Reported Vitamin B-12 (Cyanocobalamin (Vitamin B-12)) 1,000 Mcg Tablet 1 Tab PO DAILY 05/16/19 Reported Coumadin (Warfarin Sodium) 2 Mg Tablet 1 Tab PO DAILY 05/16/19 Reported Vitamin D3 (Cholecalciferol (Vitamin D3)) 5,000 Unit Tablet 1 Tab PO DAILY 05/16/19 Reported Buspirone Hcl 5 Mg Tablet 1 Tab PO BID 05/16/19 Reported Bisacodyl 10 Mg Supp.rect 10 Mg RC PRN DAILY PRN 05/16/19 Reported Tylenol (Acetaminophen) 325 Mg Tablet 2 Tab PO PRN Q6HRS PRN 05/16/19 Reported Sertraline Hcl 100 Mg Tablet 100 Mg PO DAILY 03/08/16 Reported Aspir 81 (Aspirin) 81 Mg Tablet.dr 1 Tab PO DAILY 03/08/16 Reported Novolog Flexpen (Insulin Aspart) 300 Units/3 Ml Insuln.pen 8 Units SQ TIDWMEALS 06/19/[address] CHEST 1. Moderate left lower lobe lung consolidation with moderate size left pleural effusion identified. 2. Moderate prominent appearing bilateral interstitial lung markings likely congestive changes. 3. Cholelithiasis. Electronically signed by: Austen Biggs MD (05/17/2019 9:42 AM) [place] [id number] Impression . 1. acute hypoxic respiratory failure. secondary to CHF and pneumonia. 2. Acute kidney injury on chronic kidney disease. 3. Abnormal chest x-ray with bilateral interstitial infiltrates with left-sided pleural effusion along with cardiomegaly c/w decompensated Systolic HF 5. Chronic anticoagulation 6. Cardiomyopathy EF 40-45%-stable 7. Hypotension --resolved 8. Encephalopathy , per neuro Overall patient is much better clinically, although he does have fever today Plan . 1. Continue with antibiotic per ID. zosyn/zyvox 2. Monitor effusion for now, asymptomatic at present. If he does have worsening infectious picture (fever, leukocytosis), would do a thoracentesis on the left. As long as he continues to improve overall would simply monitor. 3. Monitor white cell count. 4. EF 40-45% 5. Hold further IV fluids 6. Monitor renal function. 7. Follow Neurology recommendations. 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 8. Follow nephrology recs CORAZON LEONARD MD May 19, 2019 17:31
[2019-05-19 19:29] VITALS: BP 113/38
[2019-05-19] MEDS: INSULIN GLARGINE SYRINGE. SQ SCH (21:09)
[2019-05-19 23:33] VITALS: BP_SYST 100; BP_SYST 130; BP_DIAS 89; BP_DIAS 93
[2019-05-20] MEDS: AMINO AC 3%/ELECTROLYTE/GLYCER 1,000 ML IV SCH ×2 (00:13→13:28)
[2019-05-20] MEDS: PIPERACILLIN/TAZOBACTAM 2.25 GM in IV NORMAL SALINE 50ML 50 ML IV SCH ×4 (00:13→17:09)
[2019-05-20 03:07] VITALS: BP 141/75
[2019-05-20] MEDS: LEVOTHYROXINE 125 MCG TABLET PO SCH (05:52)
[2019-05-20 06:35] LABS: ALBUMIN 1.9 g/dL (3.4-5.0); CALCIUM 8.7 mg/dL (8.5-10.1); CREATININE 3.6 mg/dL (0.7-1.3); GFR 16.5; PHOSPHORUS 2.3 mg/dL (2.6-4.7); POTASSIUM 3.9 mmol/L (3.5-5.1)
[2019-05-20 06:37] LABS: BASO # 0.1 x10^3/uL (0.0-0.2); BASO % 1 % (0-3); EOS # 0.5 x10^3/uL (0.0-0.7); EOS % 6 % (0-3); HEMATOCRIT 24.6 % (39.0-53.0); LYMPH # 0.5 x10^3/uL (1.0-4.8); LYMPH % 5 % (24-48); MEAN CORPUSCULAR HEMOGLOBIN 28 pg (25-35); MEAN CORPUSCULAR HGB CONC 33 g/dL (31-37); MEAN CORPUSCULAR VOLUME 87 fL (79-100); MONO # 0.9 x10^3/uL (0.0-1.1); MONO % 10 % (0-9); NEUT # 7.3 x10^3/uL (1.8-7.7); NEUT % 79 % (31-73); PLATELET COUNT 193 x10^3/uL (140-400); RED BLOOD COUNT 2.83 x10^6/uL (4.30-5.70); RED CELL DISTRIBUTION WIDTH 22.2 % (11.5-14.5); WHITE BLOOD COUNT 9.3 x10^3/uL (4.0-11.0)
[2019-05-20 07:00] VITALS: BP 136/68
[2019-05-20 07:04] LABS: PROTHROMBIN TIME PATIENT 18.6 SEC (11.7-14.0)
[2019-05-20] MEDS: INSULIN LISPRO 300 UNITS/3 ML VIAL. SQ SCH ×6 (08:00→17:22)
--- NOTE | 2019-05-20 08:27 | PDOC ---
PROGRESS NOTES Chief Complaint Chief Complaint Severe sepsis Metabolic encephalopathy Hx CVA Weakness and debility Pleural effusion CHF Obesity, BMI 35 RUE ? cellulitis Pneumonia ABBY on CKD - likely this is vasomotor nephropathy due to poor PO intake Afib Cerebellar infarct - on CT scan, ? age Cardiomyopathy with pacemaker Severe protein calorie malnutrition History of Present Illness History of Present Illness Mr Londono is a 78yo M SN[facility] resident w/ PMHx AFIB (/flutter), CAD, CHF, HTN, Hyperlipidemia, CHF s/p AICD/Pacemaker who had altered mental status starting the prior to admission. He had an abnormal CT of the head, but also had profound hypotension and was being treated for sepsis. He denies any history of stroke, seizure, or head injury. We do not have a good idea of his intellectual baseline as family is not available. Transferred from ICU on 05/18. He wakes up for me, tracks with eyes, but does not verbally respond. 05/19 On procalamine 05/18, can transfer out of ICU pt and ot and speech start IV nutrition, may be able to take PO soon, getting better pleural effusion from CHF most likely 05/17/19, Dr. Barnes Pt was seen and examined today in the ICU DW Nurse about pleural effusion on CXR Vitals Vitals Vital Signs Date Time Temp Pulse Resp B/P (MAP) Pulse Ox O2 Delivery O2 Flow Rate FiO2 05/20/19 07:00 98.6 67 16 136/68 (90) 93 Room Air 98.6 05/19/19 08:00 3.0 Physical Exam Physical Exam GENERAL: Sleeping, arouses to name HEENT: OC/OP- clean NECK: Supple. HEART: S1, S2 with a 2/6 murmur. Pacemaker ABDOMEN: Soft, nontender. No guarding. GENITOURINARY: Garcia in place. EXTREMITIES: Bilateral lower extremity BKAs Mild RUE erythema and dryness SKIN: warm to touch NEUROLOGIC: Nonverbal RIJ clean General: Alert, Cooperative, No acute distress, Other (oriented to person only) Heart: Regular rate, Normal S1, Normal S2, Other (3/6 systolic murmur ) Lungs: Other (decrease left base) Abdomen: Normal bowel sounds, Soft Extremities: No clubbing, Other (bilateral BKA, trace edema ) Skin: No rashes Labs LABS Laboratory Tests Test 05/19/19 09:05 05/19/19 11:46 05/19/19 16:41 05/19/19 20:59 Prothrombin Time 20.1 SEC (11.7-14.0) Prothromb Time International Ratio 1.7 (0.8-1.1) Sodium Level 139 mmol/L (136-145) Potassium Level 3.7 mmol/L (3.5-5.1) Chloride Level 101 mmol/L (98-107) Carbon Dioxide Level 29 mmol/L (21-32) Anion Gap 9 (6-14) Blood Urea Nitrogen 85 mg/dL (8-26) Creatinine 3.7 mg/dL (0.7-1.3) Estimated GFR (Cockcroft-Gault) 16.0 Glucose Level 254 mg/dL (70-99) Calcium Level 8.6 mg/dL (8.5-10.1) Phosphorus Level 2.2 mg/dL (2.6-4.7) Albumin 2.1 g/dL (3.4-5.0) Glucose (Fingerstick) 246 mg/dL (70-99) 74 mg/dL (70-99) 138 mg/dL (70-99) Test 05/20/19 06:00 05/20/19 07:44 White Blood Count 9.3 x10^3/uL (4.0-11.0) Red Blood Count 2.83 x10^6/uL (4.30-5.70) Hemoglobin 8.0 g/dL (13.0-17.5) Hematocrit 24.6 % (39.0-53.0) Mean Corpuscular Volume 87 fL (79-100) Mean Corpuscular Hemoglobin 28 pg (25-35) Mean Corpuscular Hemoglobin Concent 33 g/dL (31-37) Red Cell Distribution Width 22.2 % (11.5-14.5) Platelet Count 193 x10^3/uL (140-400) Neutrophils (%) (Auto) 79 % (31-73) Lymphocytes (%) (Auto) 5 % (24-48) Monocytes (%) (Auto) 10 % (0-9) Eosinophils (%) (Auto) 6 % (0-3) Basophils (%) (Auto) 1 % (0-3) Neutrophils # (Auto) 7.3 x10^3/uL (1.8-7.7) Lymphocytes # (Auto) 0.5 x10^3/uL (1.0-4.8) Monocytes # (Auto) 0.9 x10^3/uL (0.0-1.1) Eosinophils # (Auto) 0.5 x10^3/uL (0.0-0.7) Basophils # (Auto) 0.1 x10^3/uL (0.0-0.2) Prothrombin Time 18.6 SEC (11.7-14.0) Prothromb Time International Ratio 1.6 (0.8-1.1) Sodium Level 137 mmol/L (136-145) Potassium Level 3.9 mmol/L (3.5-5.1) Chloride Level 100 mmol/L (98-107) Carbon Dioxide Level 27 mmol/L (21-32) Anion Gap 10 (6-14) Blood Urea Nitrogen 90 mg/dL (8-26) Creatinine 3.6 mg/dL (0.7-1.3) Estimated GFR (Cockcroft-Gault) 16.5 Glucose Level 213 mg/dL (70-99) Calcium Level 8.7 mg/dL (8.5-10.1) Phosphorus Level 2.3 mg/dL (2.6-4.7) Albumin 1.9 g/dL (3.4-5.0) Glucose (Fingerstick) 214 mg/dL (70-99) Assessment and Plan Assessmemt and Plan Problems Medical Problems: (1) Acute kidney injury superimposed on CKD Status: Acute (2) Acute on chronic combined systolic (congestive) and diastolic (congestive) heart failure Status: Acute (3) Acute respiratory failure Status: Acute (4) Acute respiratory failure with hypoxia Status: Acute (5) ABBY (acute kidney injury) Status: Acute (6) CAD (coronary artery disease) Status: Chronic (7) Chronic a-fib Status: Chronic (8) Chronic kidney disease, stage 4 (severe) Status: Acute (9) CKD (chronic kidney disease), stage III Status: Chronic (10) CVA (cerebral vascular accident) Status: Acute (11) DM2 (diabetes mellitus, type 2) Status: Chronic (12) Dyspnea Status: Acute (13) HCAP (healthcare-associated pneumonia) Status: Acute (14) Metabolic encephalopathy Status: Acute (15) Pleural effusion on left Status: Acute (16) Pleural effusion, left Status: Acute (17) Pulmonary edema Status: Acute (18) Sepsis Status: Acute (19) Severe sepsis Status: Acute Comment Review of Relevant I have reviewed the following items nestor (where applicable) has been applied. Labs Laboratory Tests Test 05/18/19 09:10 05/18/19 17:12 05/18/19 21:17 05/19/19 07:46 Prothrombin Time 25.2 SEC (11.7-14.0) Prothromb Time International Ratio 2.3 (0.8-1.1) Glucose (Fingerstick) 232 mg/dL (70-99) 283 mg/dL (70-99) 258 mg/dL (70-99) Test 05/19/19 09:05 05/19/19 11:46 05/19/19 16:41 05/19/19 20:59 Prothrombin Time 20.1 SEC (11.7-14.0) Prothromb Time International Ratio 1.7 (0.8-1.1) Sodium Level 139 mmol/L (136-145) Potassium Level 3.7 mmol/L (3.5-5.1) Chloride Level 101 mmol/L (98-107) Carbon Dioxide Level 29 mmol/L (21-32) Anion Gap 9 (6-14) Blood Urea Nitrogen 85 mg/dL (8-26) Creatinine 3.7 mg/dL (0.7-1.3) Estimated GFR (Cockcroft-Gault) 16.0 Glucose Level 254 mg/dL (70-99) Calcium Level 8.6 mg/dL (8.5-10.1) Phosphorus Level 2.2 mg/dL (2.6-4.7) Albumin 2.1 g/dL (3.4-5.0) Glucose (Fingerstick) 246 mg/dL (70-99) 74 mg/dL (70-99) 138 mg/dL (70-99) Test 05/20/19 06:00 05/20/19 07:44 White Blood Count 9.3 x10^3/uL (4.0-11.0) Red Blood Count 2.83 x10^6/uL (4.30-5.70) Hemoglobin 8.0 g/dL (13.0-17.5) Hematocrit 24.6 % (39.0-53.0) Mean Corpuscular Volume 87 fL (79-100) Mean Corpuscular Hemoglobin 28 pg (25-35) Mean Corpuscular Hemoglobin Concent 33 g/dL (31-37) Red Cell Distribution Width 22.2 % (11.5-14.5) Platelet Count 193 x10^3/uL (140-400) Neutrophils (%) (Auto) 79 % (31-73) Lymphocytes (%) (Auto) 5 % (24-48) Monocytes (%) (Auto) 10 % (0-9) Eosinophils (%) (Auto) 6 % (0-3) Basophils (%) (Auto) 1 % (0-3) Neutrophils # (Auto) 7.3 x10^3/uL (1.8-7.7) Lymphocytes # (Auto) 0.5 x10^3/uL (1.0-4.8) Monocytes # (Auto) 0.9 x10^3/uL (0.0-1.1) Eosinophils # (Auto) 0.5 x10^3/uL (0.0-0.7) Basophils # (Auto) 0.1 x10^3/uL (0.0-0.2) Prothrombin Time 18.6 SEC (11.7-14.0) Prothromb Time International Ratio 1.6 (0.8-1.1) Sodium Level 137 mmol/L (136-145) Potassium Level 3.9 mmol/L (3.5-5.1) Chloride Level 100 mmol/L (98-107) Carbon Dioxide Level 27 mmol/L (21-32) Anion Gap 10 (6-14) Blood Urea Nitrogen 90 mg/dL (8-26) Creatinine 3.6 mg/dL (0.7-1.3) Estimated GFR (Cockcroft-Gault) 16.5 Glucose Level 213 mg/dL (70-99) Calcium Level 8.7 mg/dL (8.5-10.1) Phosphorus Level 2.3 mg/dL (2.6-4.7) Albumin 1.9 g/dL (3.4-5.0) Glucose (Fingerstick) 214 mg/dL (70-99) Laboratory Tests Test 05/19/19 09:05 05/19/19 11:46 05/19/19 16:41 05/19/19 20:59 Prothrombin Time 20.1 SEC (11.7-14.0) Prothromb Time International Ratio 1.7 (0.8-1.1) Sodium Level 139 mmol/L (136-145) Potassium Level 3.7 mmol/L (3.5-5.1) Chloride Level 101 mmol/L (98-107) Carbon Dioxide Level 29 mmol/L (21-32) Anion Gap 9 (6-14) Blood Urea Nitrogen 85 mg/dL (8-26) Creatinine 3.7 mg/dL (0.7-1.3) Estimated GFR (Cockcroft-Gault) 16.0 Glucose Level 254 mg/dL (70-99) Calcium Level 8.6 mg/dL (8.5-10.1) Phosphorus Level 2.2 mg/dL (2.6-4.7) Albumin 2.1 g/dL (3.4-5.0) Glucose (Fingerstick) 246 mg/dL (70-99) 74 mg/dL (70-99) 138 mg/dL (70-99) Test 05/20/19 06:00 05/20/19 07:44 White Blood Count 9.3 x10^3/uL (4.0-11.0) Red Blood Count 2.83 x10^6/uL (4.30-5.70) Hemoglobin 8.0 g/dL (13.0-17.5) Hematocrit 24.6 % (39.0-53.0) Mean Corpuscular Volume 87 fL (79-100) Mean Corpuscular Hemoglobin 28 pg (25-35) Mean Corpuscular Hemoglobin Concent 33 g/dL (31-37) Red Cell Distribution Width 22.2 % (11.5-14.5) Platelet Count 193 x10^3/uL (140-400) Neutrophils (%) (Auto) 79 % (31-73) Lymphocytes (%) (Auto) 5 % (24-48) Monocytes (%) (Auto) 10 % (0-9) Eosinophils (%) (Auto) 6 % (0-3) Basophils (%) (Auto) 1 % (0-3) Neutrophils # (Auto) 7.3 x10^3/uL (1.8-7.7) Lymphocytes # (Auto) 0.5 x10^3/uL (1.0-4.8) Monocytes # (Auto) 0.9 x10^3/uL (0.0-1.1) Eosinophils # (Auto) 0.5 x10^3/uL (0.0-0.7) Basophils # (Auto) 0.1 x10^3/uL (0.0-0.2) Prothrombin Time 18.6 SEC (11.7-14.0) Prothromb Time International Ratio 1.6 (0.8-1.1) Sodium Level 137 mmol/L (136-145) Potassium Level 3.9 mmol/L (3.5-5.1) Chloride Level 100 mmol/L (98-107) Carbon Dioxide Level 27 mmol/L (21-32) Anion Gap 10 (6-14) Blood Urea Nitrogen 90 mg/dL (8-26) Creatinine 3.6 mg/dL (0.7-1.3) Estimated GFR (Cockcroft-Gault) 16.5 Glucose Level 213 mg/dL (70-99) Calcium Level 8.7 mg/dL (8.5-10.1) Phosphorus Level 2.3 mg/dL (2.6-4.7) Albumin 1.9 g/dL (3.4-5.0) Glucose (Fingerstick) 214 mg/dL (70-99) Microbiology 05/16/19 Blood Culture - Preliminary, Resulted NO GROWTH AFTER 4 DAYS Medications Current Medications Vancomycin HCl (Vanco Per Pharmacy) 1 each PRN DAILY PRN MC SEE COMMENTS Last administered on 05/16/19at 02:12; Start 05/15/19 at 23:00; Stop 05/17/19 at 06:52; Status DC Levofloxacin/ Dextrose 150 ml @ 100 mls/hr 1X ONCE IV Last administered on 05/16/19at 00:17; Start 05/15/19 at 23:30; Stop 05/16/19 at 00:59; Status DC Sodium Chloride 1,000 ml @ 1,000 mls/hr 1X ONCE IV ; Start 05/15/19 at 23:30; Stop 05/16/19 at 00:29; Status DC Sodium Chloride 1,000 ml @ 1,000 mls/hr 1X ONCE IV Last administered on 05/16/19at 00:17; Start 05/15/19 at 23:30; Stop 05/16/19 at 00:29; Status DC Sodium Chloride 1,000 ml @ 1,000 mls/hr 1X ONCE IV Last administered on 05/16/19at 00:17; Start 05/15/19 at 23:30; Stop 05/16/19 at 00:29; Status DC Vancomycin HCl 2 gm/Sodium Chloride 500 ml @ 250 mls/hr 1X ONCE IV Last administered on 05/16/19at 00:15; Start 05/16/19 at 00:00; Stop 05/16/19 at 01:59; Status DC Ondansetron HCl (Zofran) 4 mg PRN Q8HRS PRN IV NAUSEA/VOMITING 1ST CHOICE; Start 05/16/19 at 01:45; Stop 05/17/19 at 01:44; Status DC Vancomycin HCl 1.25 gm/Sodium Chloride 250 ml @ 167 mls/hr Q48H IV ; Start 05/18/19 at 00:00; Stop 05/17/19 at 06:52; Status DC Vancomycin HCl (Vancomycin Trough Level) 1 each 1X ONCE MC ; Start 05/19/19 at 23:30; Stop 05/17/19 at 07:19; Status DC Albumin Human 100 ml @ 100 mls/hr 1X ONCE IV Last administered on 05/16/19at 04:14; Start 05/16/19 at 04:30; Stop 05/16/19 at 05:29; Status DC Norepinephrine Bitartrate 250 ml @ 17.031 mls/ hr CONT PRN IV SEE I/O RECORD Last administered on 05/16/19at 04:21; Start 05/16/19 at 04:00; Stop 05/19/19 at 08:36; Status DC Info (FLU VACCINE SCREEN per RX) 1 each 1X ONCE MC ; Start 05/16/19 at 05:00; Stop 05/16/19 at 05:01; Status UNV Albumin Human 250 ml @ 125 mls/hr 1X ONCE IV Last administered on 05/16/19at 05:11; Start 05/16/19 at 05:30; Stop 05/16/19 at 07:29; Status DC Piperacillin Sod/ Tazobactam Sod 2.25 gm/Sodium Chloride 50 ml @ 100 mls/hr Q6HRS IV Last administered on 05/20/19 05:52; Start 05/16/19 at 13:00 Linezolid/Dextrose 300 ml @ 300 mls/hr Q12HR IV Last administered on 05/19/19 21:09; Start 05/17/19 at 09:00 Furosemide (Lasix) 40 mg 1X ONCE IVP Last administered on 05/17/19at 15:47; Start 05/17/19 at 15:45; Stop 05/17/19 at 15:46; Status DC Amino Acids/ Glycerin/ Electrolytes 1,000 ml @ 80 mls/hr [id number] IV Last administered on 05/20/19 00:13; Start 05/18/19 at 10:00 Aspirin (Ecotrin) 81 mg [id number] PO Last administered on 05/19/19 08:52; Start 05/18/19 at 12:45 Furosemide (Lasix) 40 mg 1X ONCE IVP Last administered on 05/18/19at 15:39; Start 05/18/19 at 15:00; Stop 05/18/19 at 15:01; Status DC Metoprolol Succinate (Toprol Xl) 25 mg DAILY PO Last administered on 05/19/19 08:52; Start 05/18/19 at 15:00 Insulin Glargine (Lantus Syringe) 12 unit QHS SQ Last administered on 05/19/19at 21:09; Start 05/18/19 at 21:00 Insulin Human Lispro (HumaLOG) 0-5 UNITS TIDWMEALS SQ Last administered on 05/19/19at 12:28; Start 05/18/19 at 17:00 Dextrose (Dextrose 50%-Water Syringe) 12.5 gm PRN Q15MIN PRN IV SEE COMMENTS; Start 05/18/19 at 17:00 Dextrose 250 ml PRN Q15MIN PRN IV SEE COMMENTS; Start 05/18/19 at 17:00 Insulin Human Lispro (HumaLOG) 6 units TIDWMEALS SQ Last administered on 05/19/19at 12:28; Start 05/18/19 at 17:00 Buspirone HCl (Buspar) 5 mg BID PO Last administered on 05/19/19at 21:09; Start 05/19/19 at 10:00 Carbidopa/Levodopa (Sinemet Cr) 1 tab.sa TID PO Last administered on 05/19/19at 21:09; Start 05/19/19 at 09:00 Levothyroxine Sodium (Synthroid) 125 mcg DAILY06 PO Last administered on 05/20/19at 05:52; Start 05/19/19 at 10:30 Polyethylene Glycol (miraLAX PACKET) 17 gm BID PO Last administered on 05/19/19at 21:09; Start 05/19/19 at 09:00 Sevelamer Carbonate (Renvela) 2,400 mg TIDAC PO Last administered on 05/19/19at 15:57; Start 05/19/19 at 11:30 Active Scripts Active Novolog Flexpen (Insulin Aspart) 300 Units/3 Ml Insuln.pen 8 Units SQ TIDWMEALS Reported Trazodone Hcl 100 Mg Tablet 1 Tab PO QHS Tramadol Hcl 50 Mg Tablet 50 Mg PO Q8HRS Torsemide 20 Mg Tablet 100 Mg PO BID Temazepam 15 Mg Capsule 1 Cap PO QHS Sinemet Cr 25-100 Tablet (Carbidopa/Levodopa) 1 Each Tablet.er 1 Tab PO TID Simethicone 80 Mg Tab.chew 80 Mg PO PRN Q6HRS PRN Senna Plus 8.6-50 mg Tablet (Sennosides/Docusate Sodium) 1 Each Tablet 1 Each PO BID Renvela (Sevelamer Carbonate) 800 Mg Tablet 3 Tab PO TIDAC Protonix (Pantoprazole Sodium) 40 Mg Tablet.dr 40 Mg PO DAILYAC Pravastatin Sodium 20 Mg Tablet 1 Tab PO HS Potassium Chloride 20 Meq Tablet.er 2 Tab PO DAILY Klor-Con M20 (Potassium Chloride) 20 Meq Tab.er.prt 1 Tab PO PRN DAILY PRN Novolog (Insulin Aspart) 100 Unit/1 Ml Cartridge 8 Unit SQ TIDBFRMEAL NITROGLYCERIN SubLingual (Nitroglycerin) 0.4 Mg Tab.subl 1 Tab SL UD PRN Miralax (Polyethylene Glycol 3350) 17 Gm Powd.pack 1 Packet PO BID Metoprolol Succinate ( Xl ) (Metoprolol Succinate) 25 Mg Tab.er.24h 1 Tab PO DAILY Metolazone 5 Mg Tablet 1.5 Tab PO DAILY Metolazone 2.5 Mg Tablet 2.5 Mg PO PRN DAILY PRN Melatonin 3 Mg Tablet 2 Tab PO QHS Levothyroxine Sodium 125 Mcg Tablet 1 Tab PO DAILY Lantus Solostar (Insulin Glargine,Hum.rec.anlog) 100 Unit/1 Ml Insuln.pen 12 Unit SQ QHS Acidophilus (Lactobacillus Acidophilus) 1 Each Capsule 1 Each PO DAILY Glucose Gel (Dextrose) 38 Gm Gel..gram. 38 Gm PO PRN PRN Gabapentin (Gabapentin) 100 Mg Capsule 100 Mg PO TID Flonase Allergy Relief (Fluticasone Propionate) 9.9 Ml Bishop.susp 2 Sprays NS DAILY Fleet Enema (Na Phos,M-B/Na Phos,Di-Ba) 133 Ml Enema 133 Ml RC PRN PRN Ferrous Gluconate 240 Mg Tablet 240 Mg PO DAILY Uloric (Febuxostat) 80 Mg Tablet 1 Tab PO DAILY Cymbalta (Duloxetine Hcl) 60 Mg Capsule.dr 1 Cap PO HS Cymbalta (Duloxetine Hcl) 30 Mg Capsule.dr 1 Cap PO DAILY Vitamin B-12 (Cyanocobalamin (Vitamin B-12)) 1,000 Mcg Tablet 1 Tab PO DAILY Coumadin (Warfarin Sodium) 2 Mg Tablet 1 Tab PO DAILY Vitamin D3 (Cholecalciferol (Vitamin D3)) 5,000 Unit Tablet 1 Tab PO DAILY Buspirone Hcl 5 Mg Tablet 1 Tab PO BID Bisacodyl 10 Mg Supp.rect 10 Mg RC PRN DAILY PRN Tylenol (Acetaminophen) 325 Mg Tablet 2 Tab PO PRN Q6HRS PRN Sertraline Hcl 100 Mg Tablet 100 Mg PO DAILY Aspir 81 (Aspirin) 81 Mg Tablet.dr 1 Tab PO DAILY Vitals/I & O Vital Sign - Last 24 Hours 05/19/19 05/19/19 05/19/19 05/19/19 08:52 11:25 15:05 19:29 Temp 100.2 100.2 98.2 100.2 100.2 98.2 Pulse 70 69 60 69 Resp 18 20 20 B/P (MAP) 113/33 114/72 (86) 147/42 (77) 113/38 (63) Pulse Ox 97 95 99 O2 Delivery Room Air Room Air Room Air 05/19/19 05/19/19 05/20/19 05/20/19 20:15 23:33 03:07 07:00 Temp 99.0 97.7 98.6 99.0 97.7 98.6 Pulse 70 70 67 Resp 18 18 16 B/P (MAP) 100/93 (95) 141/75 (97) 136/68 (90) Pulse Ox 97 96 93 O2 Delivery Room Air Room Air Room Air Room Air Intake and Output 05/19/19 05/19/19 05/20/19 15:00 23:00 07:00 Intake Total 0 ml Output Total 400 ml 1000 ml Balance -400 ml -1000 ml ABBY BLEVINS MD May 20, 2019 08:27
[2019-05-20] MEDS: POLYETHYLENE GLYCOL 3350 17 GM PACKET. PO SCH ×2 (09:00→21:00)
[2019-05-20] MEDS: ASPIRIN ENTERIC COATED 81 MG TABLET.DR. PO SCH (09:16)
[2019-05-20] MEDS: busPIRone 5 MG TABLET. PO SCH ×2 (09:17→23:31)
[2019-05-20] MEDS: SEVELAMER CARBONATE 800 MG TABLET. PO SCH ×2 (09:18→11:30)
[2019-05-20] MEDS: CARBIDOPA/LEVODOPA CR 25/100MG TABLET.SA. PO SCH ×3 (09:18→23:31)
[2019-05-20] MEDS: METOPROLOL SUCC 24HR ER 25 MG TAB.ER.24H. PO SCH (09:19)
--- NOTE | 2019-05-20 10:57 | PDOC ---
PULMONARY PROGRESS NOTES Subjective remains on room air, off levophed on room air, , however remains confused nursing reports no overnight concerns Vitals Vital Signs Date Time Temp Pulse Resp B/P (MAP) Pulse Ox O2 Delivery O2 Flow Rate FiO2 05/20/19 09:37 67 136/68 05/20/19 07:00 98.6 16 93 Room Air 98.6 05/19/19 08:00 3.0 ROS: No Increase Cough General: No acute distress, Confused Lungs: Other (decrease left base) Cardiovascular: S1, S2 Abdomen: Soft, Non-tender Neuro Exam: Alert Skin: Other (BLE BKA) Labs Laboratory Tests Test 05/18/19 17:12 05/18/19 21:17 05/19/19 07:46 05/19/19 09:05 Glucose (Fingerstick) 232 mg/dL (70-99) 283 mg/dL (70-99) 258 mg/dL (70-99) Prothrombin Time 20.1 SEC (11.7-14.0) Prothromb Time International Ratio 1.7 (0.8-1.1) Sodium Level 139 mmol/L (136-145) Potassium Level 3.7 mmol/L (3.5-5.1) Chloride Level 101 mmol/L (98-107) Carbon Dioxide Level 29 mmol/L (21-32) Anion Gap 9 (6-14) Blood Urea Nitrogen 85 mg/dL (8-26) Creatinine 3.7 mg/dL (0.7-1.3) Estimated GFR (Cockcroft-Gault) 16.0 Glucose Level 254 mg/dL (70-99) Calcium Level 8.6 mg/dL (8.5-10.1) Phosphorus Level 2.2 mg/dL (2.6-4.7) Albumin 2.1 g/dL (3.4-5.0) Test 05/19/19 11:46 05/19/19 16:41 05/19/19 20:59 05/20/19 06:00 Glucose (Fingerstick) 246 mg/dL (70-99) 74 mg/dL (70-99) 138 mg/dL (70-99) White Blood Count 9.3 x10^3/uL (4.0-11.0) Red Blood Count 2.83 x10^6/uL (4.30-5.70) Hemoglobin 8.0 g/dL (13.0-17.5) Hematocrit 24.6 % (39.0-53.0) Mean Corpuscular Volume 87 fL (79-100) Mean Corpuscular Hemoglobin 28 pg (25-35) Mean Corpuscular Hemoglobin Concent 33 g/dL (31-37) Red Cell Distribution Width 22.2 % (11.5-14.5) Platelet Count 193 x10^3/uL (140-400) Neutrophils (%) (Auto) 79 % (31-73) Lymphocytes (%) (Auto) 5 % (24-48) Monocytes (%) (Auto) 10 % (0-9) Eosinophils (%) (Auto) 6 % (0-3) Basophils (%) (Auto) 1 % (0-3) Neutrophils # (Auto) 7.3 x10^3/uL (1.8-7.7) Lymphocytes # (Auto) 0.5 x10^3/uL (1.0-4.8) Monocytes # (Auto) 0.9 x10^3/uL (0.0-1.1) Eosinophils # (Auto) 0.5 x10^3/uL (0.0-0.7) Basophils # (Auto) 0.1 x10^3/uL (0.0-0.2) Prothrombin Time 18.6 SEC (11.7-14.0) Prothromb Time International Ratio 1.6 (0.8-1.1) Sodium Level 137 mmol/L (136-145) Potassium Level 3.9 mmol/L (3.5-5.1) Chloride Level 100 mmol/L (98-107) Carbon Dioxide Level 27 mmol/L (21-32) Anion Gap 10 (6-14) Blood Urea Nitrogen 90 mg/dL (8-26) Creatinine 3.6 mg/dL (0.7-1.3) Estimated GFR (Cockcroft-Gault) 16.5 Glucose Level 213 mg/dL (70-99) Calcium Level 8.7 mg/dL (8.5-10.1) Phosphorus Level 2.3 mg/dL (2.6-4.7) Albumin 1.9 g/dL (3.4-5.0) Test 05/20/19 07:44 Glucose (Fingerstick) 214 mg/dL (70-99) Laboratory Tests Test 05/19/19 11:46 05/19/19 16:41 05/19/19 20:59 05/20/19 06:00 Glucose (Fingerstick) 246 mg/dL (70-99) 74 mg/dL (70-99) 138 mg/dL (70-99) White Blood Count 9.3 x10^3/uL (4.0-11.0) Red Blood Count 2.83 x10^6/uL (4.30-5.70) Hemoglobin 8.0 g/dL (13.0-17.5) Hematocrit 24.6 % (39.0-53.0) Mean Corpuscular Volume 87 fL (79-100) Mean Corpuscular Hemoglobin 28 pg (25-35) Mean Corpuscular Hemoglobin Concent 33 g/dL (31-37) Red Cell Distribution Width 22.2 % (11.5-14.5) Platelet Count 193 x10^3/uL (140-400) Neutrophils (%) (Auto) 79 % (31-73) Lymphocytes (%) (Auto) 5 % (24-48) Monocytes (%) (Auto) 10 % (0-9) Eosinophils (%) (Auto) 6 % (0-3) Basophils (%) (Auto) 1 % (0-3) Neutrophils # (Auto) 7.3 x10^3/uL (1.8-7.7) Lymphocytes # (Auto) 0.5 x10^3/uL (1.0-4.8) Monocytes # (Auto) 0.9 x10^3/uL (0.0-1.1) Eosinophils # (Auto) 0.5 x10^3/uL (0.0-0.7) Basophils # (Auto) 0.1 x10^3/uL (0.0-0.2) Prothrombin Time 18.6 SEC (11.7-14.0) Prothromb Time International Ratio 1.6 (0.8-1.1) Sodium Level 137 mmol/L (136-145) Potassium Level 3.9 mmol/L (3.5-5.1) Chloride Level 100 mmol/L (98-107) Carbon Dioxide Level 27 mmol/L (21-32) Anion Gap 10 (6-14) Blood Urea Nitrogen 90 mg/dL (8-26) Creatinine 3.6 mg/dL (0.7-1.3) Estimated GFR (Cockcroft-Gault) 16.5 Glucose Level 213 mg/dL (70-99) Calcium Level 8.7 mg/dL (8.5-10.1) Phosphorus Level 2.3 mg/dL (2.6-4.7) Albumin 1.9 g/dL (3.4-5.0) Test 05/20/19 07:44 Glucose (Fingerstick) 214 mg/dL (70-99) Medications Active Scripts Medications Dose Route/Sig Max Daily Dose Days Date Category Trazodone Hcl 100 Mg Tablet 1 Tab PO QHS 05/16/19 Reported Tramadol Hcl 50 Mg Tablet 50 Mg PO Q8HRS 05/16/19 Reported Torsemide 20 Mg Tablet 100 Mg PO BID 05/16/19 Reported Temazepam 15 Mg Capsule 1 Cap PO QHS 05/16/19 Reported Sinemet Cr 25-100 Tablet (Carbidopa/Levodopa) 1 Each Tablet.er 1 Tab PO TID 05/16/19 Reported Simethicone 80 Mg Tab.chew 80 Mg PO PRN Q6HRS PRN 05/16/19 Reported Senna Plus 8.6-50 mg Tablet (Sennosides/Docusate Sodium) 1 Each Tablet 1 Each PO BID 05/16/19 Reported Renvela (Sevelamer Carbonate) 800 Mg Tablet 3 Tab PO TIDAC 05/16/19 Reported Protonix (Pantoprazole Sodium) 40 Mg Tablet.dr 40 Mg PO DAILYAC 05/16/19 Reported Pravastatin Sodium 20 Mg Tablet 1 Tab PO HS 05/16/19 Reported Potassium Chloride 20 Meq Tablet.er 2 Tab PO DAILY 05/16/19 Reported Klor-Con M20 (Potassium Chloride) 20 Meq Tab.er.prt 1 Tab PO PRN DAILY PRN 05/16/19 Reported Novolog (Insulin Aspart) 100 Unit/1 Ml Cartridge 8 Unit SQ TIDBFRMEAL 05/16/19 Reported NITROGLYCERIN SubLingual (Nitroglycerin) 0.4 Mg Tab.subl 1 Tab SL UD PRN 05/16/19 Reported Miralax (Polyethylene Glycol 3350) 17 Gm Powd.pack 1 Packet PO BID 05/16/19 Reported Metoprolol Succinate ( Xl ) (Metoprolol Succinate) 25 Mg Tab.er.24h 1 Tab PO DAILY 05/16/19 Reported Metolazone 5 Mg Tablet 1.5 Tab PO DAILY 05/16/19 Reported Metolazone 2.5 Mg Tablet 2.5 Mg PO PRN DAILY PRN 05/16/19 Reported Melatonin 3 Mg Tablet 2 Tab PO QHS 05/16/19 Reported Levothyroxine Sodium 125 Mcg Tablet 1 Tab PO DAILY 05/16/19 Reported Lantus Solostar (Insulin Glargine,Hum.rec.anlog) 100 Unit/1 Ml Insuln.pen 12 Unit SQ QHS 05/16/19 Reported Acidophilus (Lactobacillus Acidophilus) 1 Each Capsule 1 Each PO DAILY 05/16/19 Reported Glucose Gel (Dextrose) 38 Gm Gel..gram. 38 Gm PO PRN PRN 05/16/19 Reported Gabapentin (Gabapentin) 100 Mg Capsule 100 Mg PO TID 05/16/19 Reported Flonase Allergy Relief (Fluticasone Propionate) 9.9 Ml [place].susp 2 Sprays NS DAILY 05/16/19 Reported Fleet Enema (Na Phos,M-B/Na Phos,Di-Ba) 133 Ml Enema 133 Ml RC PRN PRN 05/16/19 Reported Ferrous Gluconate 240 Mg Tablet 240 Mg PO DAILY 05/16/19 Reported Uloric (Febuxostat) 80 Mg Tablet 1 Tab PO DAILY 05/16/19 Reported Cymbalta (Duloxetine Hcl) 60 Mg Capsule.dr 1 Cap PO HS 05/16/19 Reported Cymbalta (Duloxetine Hcl) 30 Mg Capsule.dr 1 Cap PO DAILY 05/16/19 Reported Vitamin B-12 (Cyanocobalamin (Vitamin B-12)) 1,000 Mcg Tablet 1 Tab PO DAILY 05/16/19 Reported Coumadin (Warfarin Sodium) 2 Mg Tablet 1 Tab PO DAILY 05/16/19 Reported Vitamin D3 (Cholecalciferol (Vitamin D3)) 5,000 Unit Tablet 1 Tab PO DAILY 05/16/19 Reported Buspirone Hcl 5 Mg Tablet 1 Tab PO BID 05/16/19 Reported Bisacodyl 10 Mg Supp.rect 10 Mg RC PRN DAILY PRN 05/16/19 Reported Tylenol (Acetaminophen) 325 Mg Tablet 2 Tab PO PRN Q6HRS PRN 05/16/19 Reported Sertraline Hcl 100 Mg Tablet 100 Mg PO DAILY 03/08/16 Reported Aspir 81 (Aspirin) 81 Mg Tablet.dr 1 Tab PO DAILY 03/08/16 Reported Novolog Flexpen (Insulin Aspart) 300 Units/3 Ml Insuln.pen 8 Units SQ TIDWMEALS 06/19/[address] CHEST 1. Moderate left lower lobe lung consolidation with moderate size left pleural effusion identified. 2. Moderate prominent appearing bilateral interstitial lung markings likely congestive changes. 3. Cholelithiasis. Electronically signed by: Austen Biggs MD (05/17/2019 9:42 AM) [place] [id number] Impression . 1. acute hypoxic respiratory failure. secondary to CHF and pneumonia, improving. 2. Acute kidney injury on chronic kidney disease. 3. Abnormal chest x-ray with bilateral interstitial infiltrates with left-sided pleural effusion along with cardiomegaly c/w decompensated Systolic HF 5. Chronic anticoagulation 6. Cardiomyopathy EF 40-45%-stable 7. Hypotension --resolved 8. Encephalopathy , per neuro Overall patient is much better clinically Plan . 1. Continue with antibiotic per ID. zosyn/zyvox 2. Monitor effusion for now, asymptomatic at present. If he does have worsening infectious picture (fever, leukocytosis), would do a thoracentesis on the left. As long as he continues to improve overall would simply monitor. Will repeat CXR tomorrow. 3. Monitor white cell count. 4. EF 40-45% 5. Hold further IV fluids 6. Monitor renal function. 7. Follow Neurology recommendations. 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 8. Follow nephrology recs CORAZON LEONARD MD May 20, 2019 10:57
[2019-05-20 11:00] VITALS: BP 132/62
--- NOTE | 2019-05-20 12:31 | PDOC ---
Infectious Disease Note Subjective Subjective more awake, still not talking much ROS ROS no n/v/d/sob Vital Sign Vital Signs Vital Signs Date Time Temp Pulse Resp B/P (MAP) Pulse Ox O2 Delivery O2 Flow Rate FiO2 05/20/19 11:00 98.2 72 16 132/62 (85) 93 Room Air 98.2 05/19/19 08:00 3.0 Physical Exam PHYSICAL EXAM GENERAL: awake HEENT: OC/OP- clean NECK: Supple. HEART: S1, S2 with a 2/6 murmur. Pacemaker ABDOMEN: Soft, nontender. No guarding. GENITOURINARY: Garcia in place. EXTREMITIES: Bilateral lower extremity BKAs Mild RUE erythema and dryness SKIN: warm to touch NEUROLOGIC: Nonverbal RIJ clean Labs Lab Laboratory Tests Test 05/19/19 16:41 05/19/19 20:59 05/20/19 06:00 05/20/19 07:44 Glucose (Fingerstick) 74 mg/dL (70-99) 138 mg/dL (70-99) 214 mg/dL (70-99) White Blood Count 9.3 x10^3/uL (4.0-11.0) Red Blood Count 2.83 x10^6/uL (4.30-5.70) Hemoglobin 8.0 g/dL (13.0-17.5) Hematocrit 24.6 % (39.0-53.0) Mean Corpuscular Volume 87 fL (79-100) Mean Corpuscular Hemoglobin 28 pg (25-35) Mean Corpuscular Hemoglobin Concent 33 g/dL (31-37) Red Cell Distribution Width 22.2 % (11.5-14.5) Platelet Count 193 x10^3/uL (140-400) Neutrophils (%) (Auto) 79 % (31-73) Lymphocytes (%) (Auto) 5 % (24-48) Monocytes (%) (Auto) 10 % (0-9) Eosinophils (%) (Auto) 6 % (0-3) Basophils (%) (Auto) 1 % (0-3) Neutrophils # (Auto) 7.3 x10^3/uL (1.8-7.7) Lymphocytes # (Auto) 0.5 x10^3/uL (1.0-4.8) Monocytes # (Auto) 0.9 x10^3/uL (0.0-1.1) Eosinophils # (Auto) 0.5 x10^3/uL (0.0-0.7) Basophils # (Auto) 0.1 x10^3/uL (0.0-0.2) Prothrombin Time 18.6 SEC (11.7-14.0) Prothromb Time International Ratio 1.6 (0.8-1.1) Sodium Level 137 mmol/L (136-145) Potassium Level 3.9 mmol/L (3.5-5.1) Chloride Level 100 mmol/L (98-107) Carbon Dioxide Level 27 mmol/L (21-32) Anion Gap 10 (6-14) Blood Urea Nitrogen 90 mg/dL (8-26) Creatinine 3.6 mg/dL (0.7-1.3) Estimated GFR (Cockcroft-Gault) 16.5 Glucose Level 213 mg/dL (70-99) Calcium Level 8.7 mg/dL (8.5-10.1) Phosphorus Level 2.3 mg/dL (2.6-4.7) Albumin 1.9 g/dL (3.4-5.0) Test 05/20/19 12:02 Glucose (Fingerstick) 256 mg/dL (70-99) Micro Microbiology 05/16/19 Blood Culture - Preliminary, Resulted NO GROWTH AFTER 4 DAYS Objective Assessment Sepsis POA - fever/Hypotension/pneumonia/Encephalopathy/ABBY. Elevated Procalcitonin but ? reliability in renal failure RUE ? cellulitis Pneumonia ABBY on CKD Cephalexin allergy but has tolerated Zosyn/Meropenem in past Leukocytosis - better L max ? sinusitis Afib Cerebellar infarct - ? age Cardiomyopathy with pacemaker Plan Plan of Care Cont Zosyn and Zyvox 05/17. MRSA screen neg but with pneumonia and half-way resident is at risk/Cellulitis F/u am labs and cults Monitor ZULMA VILLATORO MD May 20, 2019 12:31
--- NOTE | 2019-05-20 13:49 | PDOC ---
SUBJECTIVE ROS Stable, awake, Non verbal OBJECTIVE Vital Signs Vital Signs Date Time Temp Pulse Resp B/P (MAP) Pulse Ox O2 Delivery O2 Flow Rate FiO2 05/20/19 11:00 98.2 72 16 132/62 (85) 93 Room Air 98.2 05/19/19 08:00 3.0 I & 0 Intake and Output 05/20/19 06:59 Intake Total 0 ml Output Total 1400 ml Balance -1400 ml Intake Oral 0 ml Output Urine Total 1400 ml PHYSICAL EXAM Physical Exam GENERAL: NAD HEEN-OM moist . On RA NECK: Supple. HEART: S1, S2 with a 2/6 murmur. Pacemaker without signs of complications. ABDOMEN: Soft, nontender. GENITOURINARY: Has a Garcia in place. EXTREMITIES: Bilateral lower extremity BKAs, No edema SKIN: No rash NEUROLOGIC: Recent Stroke, doesnt answer questions DIAGNOSIS/ASSESSMENT Assessment & Plan ABBY - ATN suspect sec to Sepsis/ Hypotension UA and Renal US unremarkable , UOP adquate, stable Stable renal function Supportive care, strict I/O , daily BMP avoid nephrotoxins Hyperkalemia- Resolved Sepsis with possible pneumonia: ID following CKD STAGE 3- at least since 2011, no prior labs Reviewed records from our office ,Saw Dr. Jolly in 2016 Baseline Cr 1.5-2.2 (in 2017) no interval labs Lt pleural effusion - per card/Pulm Metabolic encephalopathy: Hx of CVA p Neurology following. 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% S/P IV Lasix 1 dose per cardiology ICM s/o AICD/CRTD , paced rhythm with underlying afib CAD s/p CABG 03/06 Chronic AFIB Diabetes, II Anemia of chronic disease- stable COMMENT/RELEVANT DATA Meds Current Medications Medications (Trade) Dose Ordered Sig/Adithya Start Time Stop Time Status Last Admin Dose Admin Albumin Human 250 ml @ 125 mls/hr 1X ONCE 05/16/19 05:30 05/16/19 07:29 DC 05/16/19 05:11 125 MLS/HR Amino Acids/ Glycerin/ Electrolytes 1,000 ml @ 80 mls/hr [id number] 05/18/19 10:00 05/20/19 00:13 80 MLS/HR Aspirin (Ecotrin) 81 mg [id number] 05/18/19 12:45 05/20/19 09:37 81 MG Buspirone HCl (Buspar) 5 mg BID 05/19/19 10:00 05/20/19 09:37 5 MG Carbidopa/Levodopa (Sinemet Cr) 1 tab.sa TID 05/19/19 09:00 05/20/19 09:37 1 TAB.SA Dextrose 250 ml PRN Q15MIN PRN 05/18/19 17:00 Dextrose (Dextrose 50%-Water Syringe) 12.5 gm PRN Q15MIN PRN 05/18/19 17:00 Furosemide (Lasix) 40 mg 1X ONCE 05/18/19 15:00 05/18/19 15:01 DC 05/18/19 15:39 40 MG Info (FLU VACCINE SCREEN per RX) 1 each 1X ONCE 05/16/19 05:00 05/16/19 05:01 UNV Insulin Glargine (Lantus Syringe) 12 unit QHS 05/18/19 21:00 05/19/19 21:09 12 UNIT Insulin Human Lispro (HumaLOG) 6 units TIDWMEALS 05/18/19 17:00 05/20/19 09:37 6 UNITS Levofloxacin/ Dextrose 150 ml @ 100 mls/hr 1X ONCE 05/15/19 23:30 05/16/19 00:59 DC 05/16/19 00:17 100 MLS/HR Levothyroxine Sodium (Synthroid) 125 mcg DAILY06 05/19/19 10:30 05/20/19 05:52 125 MCG Linezolid/Dextrose 300 ml @ 300 mls/hr Q12HR 05/17/19 09:00 05/20/19 09:37 300 MLS/HR Metoprolol Succinate (Toprol Xl) 25 mg DAILY 05/18/19 15:00 05/20/19 09:37 25 MG Norepinephrine Bitartrate 250 ml @ 17.031 mls/ hr CONT PRN 05/16/19 04:00 05/19/19 08:36 DC 05/16/19 04:21 3.406 MLS/HR Ondansetron HCl (Zofran) 4 mg PRN Q8HRS PRN 05/16/19 01:45 05/17/19 01:44 DC Piperacillin Sod/ Tazobactam Sod 2.25 gm/Sodium Chloride 50 ml @ 100 mls/hr Q6HRS 05/16/19 13:00 05/20/19 05:52 100 MLS/HR Polyethylene Glycol (miraLAX PACKET) 17 gm BID 05/19/19 09:00 05/19/19 21:09 17 GM Sevelamer Carbonate (Renvela) 2,400 mg TIDAC 05/19/19 11:30 05/20/19 09:37 2,400 MG Sodium Chloride 1,000 ml @ 1,000 mls/hr 1X ONCE 05/15/19 23:30 05/16/19 00:29 DC 05/16/19 00:17 1,000 MLS/HR Vancomycin HCl (Vanco Per Pharmacy) 1 each PRN DAILY PRN 05/15/19 23:00 05/17/19 06:52 DC 05/16/19 02:12 1 EACH Vancomycin HCl (Vancomycin Trough Level) 1 each 1X ONCE 05/19/19 23:30 05/17/19 07:19 DC Vancomycin HCl 1.25 gm/Sodium Chloride 250 ml @ 167 mls/hr Q48H 05/18/19 00:00 05/17/19 06:52 DC Vancomycin HCl 2 gm/Sodium Chloride 500 ml @ 250 mls/hr 1X ONCE 05/16/19 00:00 05/16/19 01:59 DC 05/16/19 00:15 250 MLS/HR Lab Laboratory Tests Test 05/19/19 16:41 05/19/19 20:59 05/20/19 06:00 05/20/19 07:44 Glucose (Fingerstick) 74 mg/dL (70-99) 138 mg/dL (70-99) 214 mg/dL (70-99) White Blood Count 9.3 x10^3/uL (4.0-11.0) Red Blood Count 2.83 x10^6/uL (4.30-5.70) Hemoglobin 8.0 g/dL (13.0-17.5) Hematocrit 24.6 % (39.0-53.0) Mean Corpuscular Volume 87 fL (79-100) Mean Corpuscular Hemoglobin 28 pg (25-35) Mean Corpuscular Hemoglobin Concent 33 g/dL (31-37) Red Cell Distribution Width 22.2 % (11.5-14.5) Platelet Count 193 x10^3/uL (140-400) Neutrophils (%) (Auto) 79 % (31-73) Lymphocytes (%) (Auto) 5 % (24-48) Monocytes (%) (Auto) 10 % (0-9) Eosinophils (%) (Auto) 6 % (0-3) Basophils (%) (Auto) 1 % (0-3) Neutrophils # (Auto) 7.3 x10^3/uL (1.8-7.7) Lymphocytes # (Auto) 0.5 x10^3/uL (1.0-4.8) Monocytes # (Auto) 0.9 x10^3/uL (0.0-1.1) Eosinophils # (Auto) 0.5 x10^3/uL (0.0-0.7) Basophils # (Auto) 0.1 x10^3/uL (0.0-0.2) Prothrombin Time 18.6 SEC (11.7-14.0) Prothromb Time International Ratio 1.6 (0.8-1.1) Sodium Level 137 mmol/L (136-145) Potassium Level 3.9 mmol/L (3.5-5.1) Chloride Level 100 mmol/L (98-107) Carbon Dioxide Level 27 mmol/L (21-32) Anion Gap 10 (6-14) Blood Urea Nitrogen 90 mg/dL (8-26) Creatinine 3.6 mg/dL (0.7-1.3) Estimated GFR (Cockcroft-Gault) 16.5 Glucose Level 213 mg/dL (70-99) Calcium Level 8.7 mg/dL (8.5-10.1) Phosphorus Level 2.3 mg/dL (2.6-4.7) Albumin 1.9 g/dL (3.4-5.0) Test 05/20/19 12:02 Glucose (Fingerstick) 256 mg/dL (70-99) Results All relevant outside records, renal labs, imaging studies, telemetry/EKG's were reviewed. ANTHONY ORDAZ MD May 20, 2019 13:49
[2019-05-20 15:00] VITALS: BP 136/41
[2019-05-20 19:29] VITALS: BP 112/39
[2019-05-20] MEDS: LACTOBACILLUS RHAMNOSUS GG 1 CAPSULE. PO SCH (23:31)
[2019-05-20 23:34] VITALS: BP 94/51
[2019-05-20] MEDS: INSULIN GLARGINE SYRINGE. SQ SCH (23:37)
[2019-05-21] VITALS (7 sets, daily range): BP systolic 113–142; BP diastolic 51–69
[2019-05-21] MEDS: AMINO AC 3%/ELECTROLYTE/GLYCER 1,000 ML IV SCH ×2 (01:58→15:29)
[2019-05-21] MEDS: PIPERACILLIN/TAZOBACTAM 2.25 GM in IV NORMAL SALINE 50ML 50 ML IV SCH ×4 (01:58→17:18)
[2019-05-21 04:08] LABS: PROTHROMBIN TIME PATIENT 16.4 SEC (11.7-14.0)
[2019-05-21 04:17] LABS: CALCIUM 8.6 mg/dL (8.5-10.1); CREATININE 3.2 mg/dL (0.7-1.3); GFR 18.9; PHOSPHORUS 2.2 mg/dL (2.6-4.7); POTASSIUM 4.3 mmol/L (3.5-5.1)
[2019-05-21] MEDS: LEVOTHYROXINE 125 MCG TABLET PO SCH (06:39)
[2019-05-21] MEDS: INSULIN LISPRO 300 UNITS/3 ML VIAL. SQ SCH ×7 (08:00→17:23)
--- NOTE | 2019-05-21 08:08 | RAD ---
Single view of the chest. 05/21/2019 7:09 AM Indication: Evaluate for pleural effusion Comparison: Chest CT, May 17, 2019 Findings: Heart is enlarged. The enlarged heart obscures the left lung with some degree. Probable moderate pleural effusion is present on the left. No pneumothorax is seen. Diffuse interstitial and patchy alveolar opacities likely reflect pulmonary edema. Associated infiltrate/pneumonia is not excluded. Dual-lead pacemaking/ICD device from a subclavian approach again noted. Prior median sternotomy noted. No acute osseous changes are seen. IMPRESSION: 1. Probable moderate left pleural effusion 2. Probable congestive heart failure with interstitial and alveolar infiltrates most likely reflecting edema. An underlying pneumonia cannot be excluded radiographically. Electronically signed by: Del Diop MD (05/21/2019 8:05 AM) [id number]
[2019-05-21] MEDS: LACTOBACILLUS RHAMNOSUS GG 1 CAPSULE. PO SCH ×2 (08:19→20:30)
[2019-05-21] MEDS: CARBIDOPA/LEVODOPA CR 25/100MG TABLET.SA. PO SCH ×3 (08:19→20:31)
[2019-05-21] MEDS: busPIRone 5 MG TABLET. PO SCH ×2 (08:19→20:57)
[2019-05-21] MEDS: METOPROLOL SUCC 24HR ER 25 MG TAB.ER.24H. PO SCH (08:20)
[2019-05-21] MEDS: POLYETHYLENE GLYCOL 3350 17 GM PACKET. PO SCH ×2 (08:21→20:31)
[2019-05-21] MEDS: ASPIRIN ENTERIC COATED 81 MG TABLET.DR. PO SCH (08:21)
[2019-05-21] MEDS ORDERED: BISACODYL 10 MG SUPP.RECT. RC PRN (09:15)
[2019-05-21] MEDS ORDERED: IV DEXTROSE 5% 250 ML BAG. IV PRN (09:15)
[2019-05-21] MEDS ORDERED: POTASSIUM CHLORIDE 20 MEQ TABLET.ER. PO PRN (09:15)
[2019-05-21] MEDS ORDERED: SODIUM PHOSPHATES 19/7GM 133 ML ENEMA. RC PRN (09:15)
[2019-05-21] MEDS ORDERED: metOLazone 2.5 MG TABLET PO PRN (09:15)
[2019-05-21] MEDS ORDERED: DEXTROSE 50% 25 GM / 50ML DISP.SYRIN. IV PRN (09:15)
[2019-05-21] MEDS ORDERED: SIMETHICONE 80 MG TAB.CHEW PO PRN (09:15)
[2019-05-21] MEDS ORDERED: ACETAMINOPHEN 325 MG TABLET. PO PRN (09:15)
[2019-05-21] MEDS ORDERED: DEXTROSE ORAL GEL 15 GM TUBE. PO PRN (09:15)
[2019-05-21] MEDS: TORSEMIDE 20 MG TABLET. PO SCH ×2 (10:00→14:00)
[2019-05-21] MEDS: metOLazone 2.5 MG TABLET PO SCH (10:00)
[2019-05-21] MEDS: ONDANSETRON PF 4 MG/2 ML VIAL. IV PRN ×2 (11:01→20:57)
--- NOTE | 2019-05-21 11:19 | PDOC ---
PROGRESS NOTES Assessment Problems Medical Problems: (1) Acute kidney injury superimposed on CKD Status: Acute (2) Acute on chronic combined systolic (congestive) and diastolic (congestive) heart failure Status: Acute (3) Acute respiratory failure Status: Acute (4) Acute respiratory failure with hypoxia Status: Acute (5) ABBY (acute kidney injury) Status: Acute (6) CAD (coronary artery disease) Status: Chronic (7) Chronic a-fib Status: Chronic (8) Chronic kidney disease, stage 4 (severe) Status: Acute (9) CKD (chronic kidney disease), stage III Status: Chronic (10) CVA (cerebral vascular accident) Status: Acute (11) DM2 (diabetes mellitus, type 2) Status: Chronic (12) Dyspnea Status: Acute (13) HCAP (healthcare-associated pneumonia) Status: Acute (14) Metabolic encephalopathy Status: Acute (15) Pleural effusion on left Status: Acute (16) Pleural effusion, left Status: Acute (17) Pulmonary edema Status: Acute (18) Sepsis Status: Acute (19) Severe sepsis Status: Acute Metabolic encephalopathy related to sepsis. Cerebellar infarct, As follow-up CT shows some evolution, this is a subacute infarct, still, not clinically relevant or cause of his encephalopathy Plan Hold on aspirin, is on warfarin for afib Patient's power of divorce attorney, his niece, did not return my message Discharge any time Subjective none Objective Vital Signs Date Time Temp Pulse Resp B/P (MAP) Pulse Ox O2 Delivery O2 Flow Rate FiO2 05/21/19 08:39 70 113/67 05/21/19 08:00 Room Air 05/21/19 07:00 97.7 18 94 97.7 05/20/19 08:00 3.0 Intake and Output 05/21/19 06:59 Intake Total 240 ml Output Total 827 ml Balance -587 ml Intake Oral 240 ml Output Urine Total 825 ml Stool Total 2 ml PHYSICAL EXAM Alert. Oriented to "hospital" and person. PERRL. EOMI. CN: no focal findings. Muscle tone: normal. Muscle strength: 4/5 DTR: 2+ Plantar reflex: bilateral BKA's Gait: not examined in bed. Sensory exam: no abnormal findings. Automatisms of left arm, voluntary tremor which he can suppress Review of Relevant I have reviewed the following items nestor (where applicable) has been applied. Labs Laboratory Tests Test 05/19/19 11:46 9/21/19 16:41 05/19/19 20:59 05/20/19 06:00 Glucose (Fingerstick) 246 mg/dL (70-99) 74 mg/dL (70-99) 138 mg/dL (70-99) White Blood Count 9.3 x10^3/uL (4.0-11.0) Red Blood Count 2.83 x10^6/uL (4.30-5.70) Hemoglobin 8.0 g/dL (13.0-17.5) Hematocrit 24.6 % (39.0-53.0) Mean Corpuscular Volume 87 fL (79-100) Mean Corpuscular Hemoglobin 28 pg (25-35) Mean Corpuscular Hemoglobin Concent 33 g/dL (31-37) Red Cell Distribution Width 22.2 % (11.5-14.5) Platelet Count 193 x10^3/uL (140-400) Neutrophils (%) (Auto) 79 % (31-73) Lymphocytes (%) (Auto) 5 % (24-48) Monocytes (%) (Auto) 10 % (0-9) Eosinophils (%) (Auto) 6 % (0-3) Basophils (%) (Auto) 1 % (0-3) Neutrophils # (Auto) 7.3 x10^3/uL (1.8-7.7) Lymphocytes # (Auto) 0.5 x10^3/uL (1.0-4.8) Monocytes # (Auto) 0.9 x10^3/uL (0.0-1.1) Eosinophils # (Auto) 0.5 x10^3/uL (0.0-0.7) Basophils # (Auto) 0.1 x10^3/uL (0.0-0.2) Prothrombin Time 18.6 SEC (11.7-14.0) Prothromb Time International Ratio 1.6 (0.8-1.1) Sodium Level 137 mmol/L (136-145) Potassium Level 3.9 mmol/L (3.5-5.1) Chloride Level 100 mmol/L (98-107) Carbon Dioxide Level 27 mmol/L (21-32) Anion Gap 10 (6-14) Blood Urea Nitrogen 90 mg/dL (8-26) Creatinine 3.6 mg/dL (0.7-1.3) Estimated GFR (Cockcroft-Gault) 16.5 Glucose Level 213 mg/dL (70-99) Calcium Level 8.7 mg/dL (8.5-10.1) Phosphorus Level 2.3 mg/dL (2.6-4.7) Albumin 1.9 g/dL (3.4-5.0) Test 05/20/19 07:44 05/20/19 12:02 05/20/19 16:39 05/21/19 03:50 Glucose (Fingerstick) 214 mg/dL (70-99) 256 mg/dL (70-99) 233 mg/dL (70-99) Prothrombin Time 16.4 SEC (11.7-14.0) Prothromb Time International Ratio 1.4 (0.8-1.1) Sodium Level 135 mmol/L (136-145) Potassium Level 4.3 mmol/L (3.5-5.1) Chloride Level 99 mmol/L (98-107) Carbon Dioxide Level 26 mmol/L (21-32) Anion Gap 10 (6-14) Blood Urea Nitrogen 92 mg/dL (8-26) Creatinine 3.2 mg/dL (0.7-1.3) Estimated GFR (Cockcroft-Gault) 18.9 Glucose Level 267 mg/dL (70-99) Calcium Level 8.6 mg/dL (8.5-10.1) Phosphorus Level 2.2 mg/dL (2.6-4.7) Albumin 2.0 g/dL (3.4-5.0) Test 05/21/19 07:42 Glucose (Fingerstick) 248 mg/dL (70-99) Laboratory Tests Test 05/20/19 12:02 05/20/19 16:39 05/21/19 03:50 05/21/19 07:42 Glucose (Fingerstick) 256 mg/dL (70-99) 233 mg/dL (70-99) 248 mg/dL (70-99) Prothrombin Time 16.4 SEC (11.7-14.0) Prothromb Time International Ratio 1.4 (0.8-1.1) Sodium Level 135 mmol/L (136-145) Potassium Level 4.3 mmol/L (3.5-5.1) Chloride Level 99 mmol/L (98-107) Carbon Dioxide Level 26 mmol/L (21-32) Anion Gap 10 (6-14) Blood Urea Nitrogen 92 mg/dL (8-26) Creatinine 3.2 mg/dL (0.7-1.3) Estimated GFR (Cockcroft-Gault) 18.9 Glucose Level 267 mg/dL (70-99) Calcium Level 8.6 mg/dL (8.5-10.1) Phosphorus Level 2.2 mg/dL (2.6-4.7) Albumin 2.0 g/dL (3.4-5.0) Microbiology 05/16/19 Blood Culture - Final, Complete NO GROWTH AFTER 5 DAYS Medications Current Medications Vancomycin HCl (Vanco Per Pharmacy) 1 each PRN DAILY PRN MC SEE COMMENTS Last administered on 05/16/19at 02:12; Start 05/15/19 at 23:00; Stop 05/17/19 at 06:52; Status DC Levofloxacin/ Dextrose 150 ml @ 100 mls/hr 1X ONCE IV Last administered on 05/16/19at 00:17; Start 05/15/19 at 23:30; Stop 05/16/19 at 00:59; Status DC Sodium Chloride 1,000 ml @ 1,000 mls/hr 1X ONCE IV ; Start 05/15/19 at 23:30; Stop 05/16/19 at 00:29; Status DC Sodium Chloride 1,000 ml @ 1,000 mls/hr 1X ONCE IV Last administered on 05/16/19at 00:17; Start 05/15/19 at 23:30; Stop 05/16/19 at 00:29; Status DC Sodium Chloride 1,000 ml @ 1,000 mls/hr 1X ONCE IV Last administered on 05/16/19at 00:17; Start 05/15/19 at 23:30; Stop 05/16/19 at 00:29; Status DC Vancomycin HCl 2 gm/Sodium Chloride 500 ml @ 250 mls/hr 1X ONCE IV Last administered on 05/16/19at 00:15; Start 05/16/19 at 00:00; Stop 05/16/19 at 01:59; Status DC Ondansetron HCl (Zofran) 4 mg PRN Q8HRS PRN IV NAUSEA/VOMITING 1ST CHOICE; Start 05/16/19 at 01:45; Stop 05/17/19 at 01:44; Status DC Vancomycin HCl 1.25 gm/Sodium Chloride 250 ml @ 167 mls/hr Q48H IV ; Start 05/18/19 at 00:00; Stop 05/17/19 at 06:52; Status DC Vancomycin HCl (Vancomycin Trough Level) 1 each 1X ONCE MC ; Start 05/19/19 at 23:30; Stop 05/17/19 at 07:19; Status DC Albumin Human 100 ml @ 100 mls/hr 1X ONCE IV Last administered on 05/16/19at 04:14; Start 05/16/19 at 04:30; Stop 05/16/19 at 05:29; Status DC Norepinephrine Bitartrate 250 ml @ 17.031 mls/ hr CONT PRN IV SEE I/O RECORD Last administered on 05/16/19at 04:21; Start 05/16/19 at 04:00; Stop 05/19/19 at 08:36; Status DC Info (FLU VACCINE SCREEN per RX) 1 each 1X ONCE MC ; Start 05/16/19 at 05:00; Stop 05/16/19 at 05:01; Status UNV Albumin Human 250 ml @ 125 mls/hr 1X ONCE IV Last administered on 05/16/19at 05:11; Start 05/16/19 at 05:30; Stop 05/16/19 at 07:29; Status DC Piperacillin Sod/ Tazobactam Sod 2.25 gm/Sodium Chloride 50 ml @ 100 mls/hr Q6HRS IV Last administered on 05/21/19at 06:40; Start 05/16/19 at 13:00 Linezolid/Dextrose 300 ml @ 300 mls/hr Q12HR IV Last administered on 05/21/19at 08:39; Start 05/17/19 at 09:00 Furosemide (Lasix) 40 mg 1X ONCE IVP Last administered on 05/17/19at 15:47; Start 05/17/19 at 15:45; Stop 05/17/19 at 15:46; Status DC Amino Acids/ Glycerin/ Electrolytes 1,000 ml @ 80 mls/hr [id number] IV Last administered on 05/21/19at 01:59; Start 05/18/19 at 10:00 Aspirin (Ecotrin) 81 mg DAILYWBKFT PO Last administered on 05/21/19 08:39; Start 05/18/19 at 12:45 Furosemide (Lasix) 40 mg 1X ONCE IVP Last administered on 05/18/19at 15:39; Start 05/18/19 at 15:00; Stop 05/18/19 at 15:01; Status DC Metoprolol Succinate (Toprol Xl) 25 mg DAILY PO Last administered on 05/21/19 08:39; Start 05/18/19 at 15:00 Insulin Glargine (Lantus Syringe) 12 unit QHS SQ Last administered on 05/20/19at 23:37; Start 05/18/19 at 21:00; Stop 05/21/19 at 09:11; Status DC Insulin Human Lispro (HumaLOG) 0-5 UNITS TIDWMEALS SQ Last administered on 05/20/19at 17:22; Start 05/18/19 at 17:00; Stop 05/21/19 at 09:11; Status DC Dextrose (Dextrose 50%-Water Syringe) 12.5 gm PRN Q15MIN PRN IV SEE COMMENTS; Start 05/18/19 at 17:00; Stop 05/21/19 at 09:12; Status DC Dextrose 250 ml PRN Q15MIN PRN IV SEE COMMENTS; Start 05/18/19 at 17:00; Stop 05/21/19 at 09:12; Status DC Insulin Human Lispro (HumaLOG) 6 units TIDWMEALS SQ Last administered on 05/21/19at 08:39; Start 05/18/19 at 17:00 Buspirone HCl (Buspar) 5 mg BID PO Last administered on 05/21/19at 08:39; Start 05/19/19 at 10:00 Carbidopa/Levodopa (Sinemet Cr) 1 tab.sa TID PO Last administered on 05/21/19 08:39; Start 05/19/19 at 09:00 Levothyroxine Sodium (Synthroid) 125 mcg DAILY06 PO Last administered on 05/21/19at 06:40; Start 05/19/19 at 10:30 Polyethylene Glycol (miraLAX PACKET) 17 gm BID PO Last administered on 05/21/19at 08:39; Start 05/19/19 at 09:00 Sevelamer Carbonate (Renvela) 2,400 mg TIDAC PO Last administered on 05/20/19at 09:37; Start 05/19/19 at 11:30; Stop 05/20/19 at 14:10; Status DC Lactobacillus Rhamnosus (Culturelle) 1 cap BID PO Last administered on 05/21/19at 08:39; Start 05/20/19 at 21:00 Insulin Glargine (Lantus Syringe) 15 unit QHS SQ ; Start 05/21/19 at 21:00 Insulin Human Lispro (HumaLOG) 0-9 UNITS TIDWMEALS SQ ; Start 05/21/19 at 09:30 Dextrose (Dextrose 50%-Water Syringe) 12.5 gm PRN Q15MIN PRN IV SEE COMMENTS; Start 05/21/19 at 09:15 Dextrose 250 ml PRN Q15MIN PRN IV SEE COMMENTS; Start 05/21/19 at 09:15 Acetaminophen (Tylenol) 650 mg PRN Q6HRS PRN PO MILD PAIN 1-3; Start 05/21/19 at 09:15 Aspirin (Ecotrin) 81 mg DAILY PO ; Start 05/22/19 at 09:00; Status UNV Bisacodyl (Dulcolax Supp) 10 mg PRN DAILY PRN RC CONSTIPATION; Start 05/21/19 at 09:15 Cyanocobalamin (Vitamin B-12) 1,000 mcg DAILY PO ; Start 05/21/19 at 10:00 Glucose (Insta-Glucose) 15 gm PRN DAILY PRN PO Hypoglycemia; Start 05/21/19 at 09:15 Metolazone (Zaroxolyn) 2.5 mg PRN DAILY PRN PO Weight gain/Fluid gain; Start 05/21/19 at 09:15 Metoprolol Succinate (Toprol Xl) 25 mg DAILY PO ; Start 05/22/19 at 09:00; Status UNV Sodium Monofluorophosphate (Fleet Adult) 133 ml PRN DAILY PRN RC CONSTIPATION; Start 05/21/19 at 09:15 Pantoprazole Sodium (Protonix) 40 mg DAILYAC PO ; Start 05/21/19 at 10:00 Potassium Chloride (Klor-Con) 20 meq PRN DAILY PRN PO IF PRN METOLAZONE GIVEN; Start 05/21/19 at 09:15 Senna/Docusate Sodium (Senna Plus) 1 tab BID PO ; Start 05/21/19 at 10:00 Simethicone (Gas-X) 80 mg PRN Q6HRS PRN PO HEARTBURN / GAS; Start 05/21/19 at 09:15 Torsemide (Demadex) 100 mg BID92 PO ; Start 05/21/19 at 10:00 Trazodone HCl (Desyrel) 100 mg QHS PO ; Start 05/21/19 at 21:00 Warfarin Sodium (Coumadin) 2 mg DAILY16 PO ; Start 05/21/19 at 16:00 Febuxostat (Uloric) 80 mg DAILY PO ; Start 05/21/19 at 10:00 Ferrous Sulfate (Feosol) 325 mg DAILYWBKFT PO ; Start 05/21/19 at 10:00 Fluticasone Propionate (Flonase) 2 spray DAILY NS ; Start 05/21/19 at 10:00 Lactobacillus Rhamnosus (Culturelle) 1 cap DAILY PO ; Start 05/22/19 at 09:00; Status UNV Non-Formulary Medication (Melatonin ) 2 tab QHS PO ; Start 05/21/19 at 21:00; Status UNV Metolazone (Zaroxolyn) 7.5 mg DAILY PO ; Start 05/21/19 at 10:00 Potassium Chloride (Klor-Con) 40 meq DAILYWBKFT PO ; Start 05/21/19 at 10:00 Atorvastatin Calcium (Lipitor) 5 mg QHS PO ; Start 05/21/19 at 21:00 Vitamin D (Vitamin D3) 5,000 unit DAILY PO ; Start 05/21/19 at 10:00 Warfarin Sodium (Coumadin Per Pharmacy) 1 each PRN DAILY PRN MC SEE COMMENTS; Start 05/21/19 at 09:15 Ondansetron HCl (Zofran) 4 mg PRN Q6HRS PRN IV NAUSEA/VOMITING Last administered on 05/21/19at 11:01; Start 05/21/19 at 11:00 Active Scripts Active Novolog Flexpen (Insulin Aspart) 300 Units/3 Ml Insuln.pen 8 Units SQ TIDWMEALS Reported Trazodone Hcl 100 Mg Tablet 1 Tab PO QHS Tramadol Hcl 50 Mg Tablet 50 Mg PO Q8HRS Torsemide 20 Mg Tablet 100 Mg PO BID Temazepam 15 Mg Capsule 1 Cap PO QHS Sinemet Cr 25-100 Tablet (Carbidopa/Levodopa) 1 Each Tablet.er 1 Tab PO TID Simethicone 80 Mg Tab.chew 80 Mg PO PRN Q6HRS PRN Senna Plus 8.6-50 mg Tablet (Sennosides/Docusate Sodium) 1 Each Tablet 1 Each PO BID Renvela (Sevelamer Carbonate) 800 Mg Tablet 3 Tab PO TIDAC Protonix (Pantoprazole Sodium) 40 Mg Tablet.dr 40 Mg PO DAILYAC Pravastatin Sodium 20 Mg Tablet 1 Tab PO HS Potassium Chloride 20 Meq Tablet.er 2 Tab PO DAILY Klor-Con M20 (Potassium Chloride) 20 Meq Tab.er.prt 1 Tab PO PRN DAILY PRN Novolog (Insulin Aspart) 100 Unit/1 Ml Cartridge 8 Unit SQ TIDBFRMEAL NITROGLYCERIN SubLingual (Nitroglycerin) 0.4 Mg Tab.subl 1 Tab SL UD PRN Miralax (Polyethylene Glycol 3350) 17 Gm Powd.pack 1 Packet PO BID Metoprolol Succinate ( Xl ) (Metoprolol Succinate) 25 Mg Tab.er.24h 1 Tab PO DAILY Metolazone 5 Mg Tablet 1.5 Tab PO DAILY Metolazone 2.5 Mg Tablet 2.5 Mg PO PRN DAILY PRN Melatonin 3 Mg Tablet 2 Tab PO QHS Levothyroxine Sodium 125 Mcg Tablet 1 Tab PO DAILY Lantus Solostar (Insulin Glargine,Hum.rec.anlog) 100 Unit/1 Ml Insuln.pen 12 Unit SQ QHS Acidophilus (Lactobacillus Acidophilus) 1 Each Capsule 1 Each PO DAILY Glucose Gel (Dextrose) 38 Gm Gel..gram. 38 Gm PO PRN PRN Gabapentin (Gabapentin) 100 Mg Capsule 100 Mg PO TID Flonase Allergy Relief (Fluticasone Propionate) 9.9 Ml Minong.susp 2 Sprays NS DAILY Fleet Enema (Na Phos,M-B/Na Phos,Di-Ba) 133 Ml Enema 133 Ml RC PRN PRN Ferrous Gluconate 240 Mg Tablet 240 Mg PO DAILY Uloric (Febuxostat) 80 Mg Tablet 1 Tab PO DAILY Cymbalta (Duloxetine Hcl) 60 Mg Capsule.dr 1 Cap PO HS Cymbalta (Duloxetine Hcl) 30 Mg Capsule.dr 1 Cap PO DAILY Vitamin B-12 (Cyanocobalamin (Vitamin B-12)) 1,000 Mcg Tablet 1 Tab PO DAILY Coumadin (Warfarin Sodium) 2 Mg Tablet 1 Tab PO DAILY Vitamin D3 (Cholecalciferol (Vitamin D3)) 5,000 Unit Tablet 1 Tab PO DAILY Buspirone Hcl 5 Mg Tablet 1 Tab PO BID Bisacodyl 10 Mg Supp.rect 10 Mg RC PRN DAILY PRN Tylenol (Acetaminophen) 325 Mg Tablet 2 Tab PO PRN Q6HRS PRN Sertraline Hcl 100 Mg Tablet 100 Mg PO DAILY Aspir 81 (Aspirin) 81 Mg Tablet. 1 Tab PO DAILY Vitals/I & O Vital Sign - Last 24 Hours 05/20/19 05/20/19 05/20/19 05/20/19 15:00 19:29 20:16 23:34 Temp 99.5 98.9 98.4 99.5 98.9 98.4 Pulse 70 69 70 Resp 18 20 18 B/P (MAP) 136/41 (72) 112/39 (63) 94/51 (65) Pulse Ox 18 98 97 O2 Delivery Room Air Room Air Room Air Room Air 05/21/19 05/21/19 05/21/19 05/21/19 03:44 07:00 08:00 08:39 Temp 98.1 97.7 98.1 97.7 Pulse 70 72 70 Resp 20 18 B/P (MAP) 113/67 (82) 142/68 (92) 113/67 Pulse Ox 97 94 O2 Delivery Room Air Room Air Room Air Intake and Output 05/20/19 05/20/19 05/21/19 14:59 22:59 06:59 Intake Total 240 ml Output Total 2 ml 825 ml Balance 238 ml -825 ml STEPHANIE DUKE MD May 21, 2019 11:18
--- NOTE | 2019-05-21 11:57 | PDOC ---
PROGRESS NOTES Chief Complaint Chief Complaint Severe sepsis diarrhea HCAP \ SNU resident Metabolic encephalopathy, seems better Hx CVA Weakness and debility Pleural effusion CHF, stable Obesity, BMI 35 RUE ? cellulitis ABBY on CKD - likely this is vasomotor nephropathy due to poor PO intake Afib Cerebellar infarct - on CT scan, ? age Cardiomyopathy with pacemaker Severe protein calorie malnutrition\ dysphagia -on dysphagia 1 diet History of Present Illness History of Present Illness emesis and diarrhea today SNU resident HE tells us he needs ti be fed in SNU HE is bilateral BKA - so wheelchair bound HE is DNR< active med treatment' he is on warf for maybe bed bound issues, bilateral BKA HE has 34 meds that i needed to review and reconcile BS high 250s PLAN: Inc lantus to 15 from 12 units qhs SSI high dose SHIFT pls IV zyvox, zosyn per ID DNR WArf per pharmacy goal 2-3 I held off sedating meds for now like gabapentin, trazadone, cymbalta etc I reviewed 34 meds, reconciled some time 30 COnt dysphagia 1 diet Vitals Vitals Vital Signs Date Time Temp Pulse Resp B/P (MAP) Pulse Ox O2 Delivery O2 Flow Rate FiO2 05/21/19 08:39 70 113/67 05/21/19 08:00 Room Air 05/21/19 07:00 97.7 18 94 97.7 05/20/19 08:00 3.0 Physical Exam Physical Exam GENERAL: awake HEENT: OC/OP- clean NECK: Supple. HEART: S1, S2 with a 2/6 murmur. Pacemaker ABDOMEN: Soft, nontender. No guarding. GENITOURINARY: Garcia in place. EXTREMITIES: Bilateral lower extremity BKAs Mild RUE erythema and dryness SKIN: warm to touch NEUROLOGIC: Nonverbal RIJ clean General: Alert, Cooperative, No acute distress, Other (oriented to person only) Heart: Regular rate, Normal S1, Normal S2, Other (3/6 systolic murmur ) Lungs: Other (decrease left base) Abdomen: Normal bowel sounds, Soft Extremities: No clubbing, Other (bilateral BKA, trace edema ) Skin: No rashes Labs LABS Laboratory Tests Test 05/20/19 12:02 05/20/19 16:39 05/21/19 03:50 05/21/19 07:42 Glucose (Fingerstick) 256 mg/dL (70-99) 233 mg/dL (70-99) 248 mg/dL (70-99) Prothrombin Time 16.4 SEC (11.7-14.0) Prothromb Time International Ratio 1.4 (0.8-1.1) Sodium Level 135 mmol/L (136-145) Potassium Level 4.3 mmol/L (3.5-5.1) Chloride Level 99 mmol/L (98-107) Carbon Dioxide Level 26 mmol/L (21-32) Anion Gap 10 (6-14) Blood Urea Nitrogen 92 mg/dL (8-26) Creatinine 3.2 mg/dL (0.7-1.3) Estimated GFR (Cockcroft-Gault) 18.9 Glucose Level 267 mg/dL (70-99) Calcium Level 8.6 mg/dL (8.5-10.1) Phosphorus Level 2.2 mg/dL (2.6-4.7) Albumin 2.0 g/dL (3.4-5.0) Test 05/21/19 11:25 Glucose (Fingerstick) 264 mg/dL (70-99) Review of Systems Review of Systems limited, dementia Assessment and Plan Assessmemt and Plan Problems Medical Problems: (1) Acute kidney injury superimposed on CKD Status: Acute (2) Acute on chronic combined systolic (congestive) and diastolic (congestive) heart failure Status: Acute (3) Acute respiratory failure Status: Acute (4) Acute respiratory failure with hypoxia Status: Acute (5) ABBY (acute kidney injury) Status: Acute (6) CAD (coronary artery disease) Status: Chronic (7) Chronic a-fib Status: Chronic (8) Chronic kidney disease, stage 4 (severe) Status: Acute (9) CKD (chronic kidney disease), stage III Status: Chronic (10) CVA (cerebral vascular accident) Status: Acute (11) DM2 (diabetes mellitus, type 2) Status: Chronic (12) Dyspnea Status: Acute (13) HCAP (healthcare-associated pneumonia) Status: Acute (14) Metabolic encephalopathy Status: Acute (15) Pleural effusion on left Status: Acute (16) Pleural effusion, left Status: Acute (17) Pulmonary edema Status: Acute (18) Sepsis Status: Acute (19) Severe sepsis Status: Acute Comment Review of Relevant I have reviewed the following items nestor (where applicable) has been applied. Labs Laboratory Tests Test 05/19/19 16:41 05/19/19 20:59 05/20/19 06:00 05/20/19 07:44 Glucose (Fingerstick) 74 mg/dL (70-99) 138 mg/dL (70-99) 214 mg/dL (70-99) White Blood Count 9.3 x10^3/uL (4.0-11.0) Red Blood Count 2.83 x10^6/uL (4.30-5.70) Hemoglobin 8.0 g/dL (13.0-17.5) Hematocrit 24.6 % (39.0-53.0) Mean Corpuscular Volume 87 fL (79-100) Mean Corpuscular Hemoglobin 28 pg (25-35) Mean Corpuscular Hemoglobin Concent 33 g/dL (31-37) Red Cell Distribution Width 22.2 % (11.5-14.5) Platelet Count 193 x10^3/uL (140-400) Neutrophils (%) (Auto) 79 % (31-73) Lymphocytes (%) (Auto) 5 % (24-48) Monocytes (%) (Auto) 10 % (0-9) Eosinophils (%) (Auto) 6 % (0-3) Basophils (%) (Auto) 1 % (0-3) Neutrophils # (Auto) 7.3 x10^3/uL (1.8-7.7) Lymphocytes # (Auto) 0.5 x10^3/uL (1.0-4.8) Monocytes # (Auto) 0.9 x10^3/uL (0.0-1.1) Eosinophils # (Auto) 0.5 x10^3/uL (0.0-0.7) Basophils # (Auto) 0.1 x10^3/uL (0.0-0.2) Prothrombin Time 18.6 SEC (11.7-14.0) Prothromb Time International Ratio 1.6 (0.8-1.1) Sodium Level 137 mmol/L (136-145) Potassium Level 3.9 mmol/L (3.5-5.1) Chloride Level 100 mmol/L (98-107) Carbon Dioxide Level 27 mmol/L (21-32) Anion Gap 10 (6-14) Blood Urea Nitrogen 90 mg/dL (8-26) Creatinine 3.6 mg/dL (0.7-1.3) Estimated GFR (Cockcroft-Gault) 16.5 Glucose Level 213 mg/dL (70-99) Calcium Level 8.7 mg/dL (8.5-10.1) Phosphorus Level 2.3 mg/dL (2.6-4.7) Albumin 1.9 g/dL (3.4-5.0) Test 05/20/19 12:02 05/20/19 16:39 05/21/19 03:50 05/21/19 07:42 Glucose (Fingerstick) 256 mg/dL (70-99) 233 mg/dL (70-99) 248 mg/dL (70-99) Prothrombin Time 16.4 SEC (11.7-14.0) Prothromb Time International Ratio 1.4 (0.8-1.1) Sodium Level 135 mmol/L (136-145) Potassium Level 4.3 mmol/L (3.5-5.1) Chloride Level 99 mmol/L (98-107) Carbon Dioxide Level 26 mmol/L (21-32) Anion Gap 10 (6-14) Blood Urea Nitrogen 92 mg/dL (8-26) Creatinine 3.2 mg/dL (0.7-1.3) Estimated GFR (Cockcroft-Gault) 18.9 Glucose Level 267 mg/dL (70-99) Calcium Level 8.6 mg/dL (8.5-10.1) Phosphorus Level 2.2 mg/dL (2.6-4.7) Albumin 2.0 g/dL (3.4-5.0) Test 05/21/19 11:25 Glucose (Fingerstick) 264 mg/dL (70-99) Laboratory Tests Test 05/20/19 12:02 05/20/19 16:39 05/21/19 03:50 05/21/19 07:42 Glucose (Fingerstick) 256 mg/dL (70-99) 233 mg/dL (70-99) 248 mg/dL (70-99) Prothrombin Time 16.4 SEC (11.7-14.0) Prothromb Time International Ratio 1.4 (0.8-1.1) Sodium Level 135 mmol/L (136-145) Potassium Level 4.3 mmol/L (3.5-5.1) Chloride Level 99 mmol/L (98-107) Carbon Dioxide Level 26 mmol/L (21-32) Anion Gap 10 (6-14) Blood Urea Nitrogen 92 mg/dL (8-26) Creatinine 3.2 mg/dL (0.7-1.3) Estimated GFR (Cockcroft-Gault) 18.9 Glucose Level 267 mg/dL (70-99) Calcium Level 8.6 mg/dL (8.5-10.1) Phosphorus Level 2.2 mg/dL (2.6-4.7) Albumin 2.0 g/dL (3.4-5.0) Test 05/21/19 11:25 Glucose (Fingerstick) 264 mg/dL (70-99) Microbiology 05/16/19 Blood Culture - Final, Complete NO GROWTH AFTER 5 DAYS Medications Current Medications Vancomycin HCl (Vanco Per Pharmacy) 1 each PRN DAILY PRN MC SEE COMMENTS Last administered on 05/16/19at 02:12; Start 05/15/19 at 23:00; Stop 05/17/19 at 06:52; Status DC Levofloxacin/ Dextrose 150 ml @ 100 mls/hr 1X ONCE IV Last administered on 05/16/19at 00:17; Start 05/15/19 at 23:30; Stop 05/16/19 at 00:59; Status DC Sodium Chloride 1,000 ml @ 1,000 mls/hr 1X ONCE IV ; Start 05/15/19 at 23:30; Stop 05/16/19 at 00:29; Status DC Sodium Chloride 1,000 ml @ 1,000 mls/hr 1X ONCE IV Last administered on 05/16/19at 00:17; Start 05/15/19 at 23:30; Stop 05/16/19 at 00:29; Status DC Sodium Chloride 1,000 ml @ 1,000 mls/hr 1X ONCE IV Last administered on 05/16/19at 00:17; Start 05/15/19 at 23:30; Stop 05/16/19 at 00:29; Status DC Vancomycin HCl 2 gm/Sodium Chloride 500 ml @ 250 mls/hr 1X ONCE IV Last administered on 05/16/19at 00:15; Start 05/16/19 at 00:00; Stop 05/16/19 at 01:59; Status DC Ondansetron HCl (Zofran) 4 mg PRN Q8HRS PRN IV NAUSEA/VOMITING 1ST CHOICE; Start 05/16/19 at 01:45; Stop 05/17/19 at 01:44; Status DC Vancomycin HCl 1.25 gm/Sodium Chloride 250 ml @ 167 mls/hr Q48H IV ; Start 05/18/19 at 00:00; Stop 05/17/19 at 06:52; Status DC Vancomycin HCl (Vancomycin Trough Level) 1 each 1X ONCE MC ; Start 05/19/19 at 23:30; Stop 05/17/19 at 07:19; Status DC Albumin Human 100 ml @ 100 mls/hr 1X ONCE IV Last administered on 05/16/19at 04:14; Start 05/16/19 at 04:30; Stop 05/16/19 at 05:29; Status DC Norepinephrine Bitartrate 250 ml @ 17.031 mls/ hr CONT PRN IV SEE I/O RECORD Last administered on 05/16/19at 04:21; Start 05/16/19 at 04:00; Stop 05/19/19 at 08:36; Status DC Info (FLU VACCINE SCREEN per RX) 1 each 1X ONCE MC ; Start 05/16/19 at 05:00; Stop 05/16/19 at 05:01; Status UNV Albumin Human 250 ml @ 125 mls/hr 1X ONCE IV Last administered on 05/16/19at 05:11; Start 05/16/19 at 05:30; Stop 05/16/19 at 07:29; Status DC Piperacillin Sod/ Tazobactam Sod 2.25 gm/Sodium Chloride 50 ml @ 100 mls/hr Q6HRS IV Last administered on 05/21/19at 06:40; Start 05/16/19 at 13:00 Linezolid/Dextrose 300 ml @ 300 mls/hr Q12HR IV Last administered on 05/21/19at 08:39; Start 05/17/19 at 09:00 Furosemide (Lasix) 40 mg 1X ONCE IVP Last administered on 05/17/19at 15:47; Start 05/17/19 at 15:45; Stop 05/17/19 at 15:46; Status DC Amino Acids/ Glycerin/ Electrolytes 1,000 ml @ 80 mls/hr [id number] IV Last administered on 05/21/19 01:59; Start 05/18/19 at 10:00 Aspirin (Ecotrin) 81 mg DAILYWBKFT PO Last administered on 05/21/19at 08:39; Start 05/18/19 at 12:45 Furosemide (Lasix) 40 mg 1X ONCE IVP Last administered on 05/18/19at 15:39; Start 05/18/19 at 15:00; Stop 05/18/19 at 15:01; Status DC Metoprolol Succinate (Toprol Xl) 25 mg DAILY PO Last administered on 05/21/19 08:39; Start 05/18/19 at 15:00 Insulin Glargine (Lantus Syringe) 12 unit QHS SQ Last administered on 05/20/19at 23:37; Start 05/18/19 at 21:00; Stop 05/21/19 at 09:11; Status DC Insulin Human Lispro (HumaLOG) 0-5 UNITS TIDWMEALS SQ Last administered on 05/20/19at 17:22; Start 05/18/19 at 17:00; Stop 05/21/19 at 09:11; Status DC Dextrose (Dextrose 50%-Water Syringe) 12.5 gm PRN Q15MIN PRN IV SEE COMMENTS; Start 05/18/19 at 17:00; Stop 05/21/19 at 09:12; Status DC Dextrose 250 ml PRN Q15MIN PRN IV SEE COMMENTS; Start 05/18/19 at 17:00; Stop 05/21/19 at 09:12; Status DC Insulin Human Lispro (HumaLOG) 6 units TIDWMEALS SQ Last administered on 05/21/19at 08:39; Start 05/18/19 at 17:00 Buspirone HCl (Buspar) 5 mg BID PO Last administered on 05/21/19at 08:39; Start 05/19/19 at 10:00 Carbidopa/Levodopa (Sinemet Cr) 1 tab.sa TID PO Last administered on 05/21/19at 08:39; Start 05/19/19 at 09:00 Levothyroxine Sodium (Synthroid) 125 mcg DAILY06 PO Last administered on 05/21/19at 06:40; Start 05/19/19 at 10:30 Polyethylene Glycol (miraLAX PACKET) 17 gm BID PO Last administered on 05/21/19at 08:39; Start 05/19/19 at 09:00 Sevelamer Carbonate (Renvela) 2,400 mg TIDAC PO Last administered on 05/20/19at 09:37; Start 05/19/19 at 11:30; Stop 05/20/19 at 14:10; Status DC Lactobacillus Rhamnosus (Culturelle) 1 cap BID PO Last administered on 05/21/19at 08:39; Start 05/20/19 at 21:00 Insulin Glargine (Lantus Syringe) 15 unit QHS SQ ; Start 05/21/19 at 21:00 Insulin Human Lispro (HumaLOG) 0-9 UNITS TIDWMEALS SQ ; Start 05/21/19 at 09:30 Dextrose (Dextrose 50%-Water Syringe) 12.5 gm PRN Q15MIN PRN IV SEE COMMENTS; Start 05/21/19 at 09:15 Dextrose 250 ml PRN Q15MIN PRN IV SEE COMMENTS; Start 05/21/19 at 09:15 Acetaminophen (Tylenol) 650 mg PRN Q6HRS PRN PO MILD PAIN 1-3; Start 05/21/19 at 09:15 Aspirin (Ecotrin) 81 mg DAILY PO ; Start 05/22/19 at 09:00; Status UNV Bisacodyl (Dulcolax Supp) 10 mg PRN DAILY PRN RC CONSTIPATION; Start 05/21/19 a t 09:15 Cyanocobalamin (Vitamin B-12) 1,000 mcg DAILY PO ; Start 05/21/19 at 10:00 Glucose (Insta-Glucose) 15 gm PRN DAILY PRN PO Hypoglycemia; Start 05/21/19 at 09:15 Metolazone (Zaroxolyn) 2.5 mg PRN DAILY PRN PO Weight gain/Fluid gain; Start 05/21/19 at 09:15 Metoprolol Succinate (Toprol Xl) 25 mg DAILY PO ; Start 05/22/19 at 09:00; Status UNV Sodium Monofluorophosphate (Fleet Adult) 133 ml PRN DAILY PRN RC CONSTIPATION; Start 05/21/19 at 09:15 Pantoprazole Sodium (Protonix) 40 mg DAILYAC PO ; Start 05/21/19 at 10:00 Potassium Chloride (Klor-Con) 20 meq PRN DAILY PRN PO IF PRN METOLAZONE GIVEN; Start 05/21/19 at 09:15 Senna/Docusate Sodium (Senna Plus) 1 tab BID PO ; Start 05/21/19 at 10:00 Simethicone (Gas-X) 80 mg PRN Q6HRS PRN PO HEARTBURN / GAS; Start 05/21/19 at 09:15 Torsemide (Demadex) 100 mg BID92 PO ; Start 05/21/19 at 10:00 Trazodone HCl (Desyrel) 100 mg QHS PO ; Start 05/21/19 at 21:00 Warfarin Sodium (Coumadin) 2 mg DAILY16 PO ; Start 05/21/19 at 16:00 Febuxostat (Uloric) 80 mg DAILY PO ; Start 05/21/19 at 10:00 Ferrous Sulfate (Feosol) 325 mg DAILYWBKFT PO ; Start 05/21/19 at 10:00 Fluticasone Propionate (Flonase) 2 spray DAILY NS ; Start 05/21/19 at 10:00 Lactobacillus Rhamnosus (Culturelle) 1 cap DAILY PO ; Start 05/22/19 at 09:00; Status UNV Non-Formulary Medication (Melatonin ) 2 tab QHS PO ; Start 05/21/19 at 21:00; Status UNV Metolazone (Zaroxolyn) 7.5 mg DAILY PO ; Start 05/21/19 at 10:00 Potassium Chloride (Klor-Con) 40 meq DAILYWBKFT PO ; Start 05/21/19 at 10:00 Atorvastatin Calcium (Lipitor) 5 mg QHS PO ; Start 05/21/19 at 21:00 Vitamin D (Vitamin D3) 5,000 unit DAILY PO ; Start 05/21/19 at 10:00 Warfarin Sodium (Coumadin Per Pharmacy) 1 each PRN DAILY PRN MC SEE COMMENTS; Start 05/21/19 at 09:15 Ondansetron HCl (Zofran) 4 mg PRN Q6HRS PRN IV NAUSEA/VOMITING Last administered on 05/21/19at 11:01; Start 05/21/19 at 11:00 Active Scripts Active Novolog Flexpen (Insulin Aspart) 300 Units/3 Ml Insuln.pen 8 Units SQ TIDWMEALS Reported Trazodone Hcl 100 Mg Tablet 1 Tab PO QHS Tramadol Hcl 50 Mg Tablet 50 Mg PO Q8HRS Torsemide 20 Mg Tablet 100 Mg PO BID Temazepam 15 Mg Capsule 1 Cap PO QHS Sinemet Cr 25-100 Tablet (Carbidopa/Levodopa) 1 Each Tablet.er 1 Tab PO TID Simethicone 80 Mg Tab.chew 80 Mg PO PRN Q6HRS PRN Senna Plus 8.6-50 mg Tablet (Sennosides/Docusate Sodium) 1 Each Tablet 1 Each PO BID Renvela (Sevelamer Carbonate) 800 Mg Tablet 3 Tab PO TIDAC Protonix (Pantoprazole Sodium) 40 Mg Tablet.dr 40 Mg PO DAILYAC Pravastatin Sodium 20 Mg Tablet 1 Tab PO HS Potassium Chloride 20 Meq Tablet.er 2 Tab PO DAILY Klor-Con M20 (Potassium Chloride) 20 Meq Tab.er.prt 1 Tab PO PRN DAILY PRN Novolog (Insulin Aspart) 100 Unit/1 Ml Cartridge 8 Unit SQ TIDBFRMEAL NITROGLYCERIN SubLingual (Nitroglycerin) 0.4 Mg Tab.subl 1 Tab SL UD PRN Miralax (Polyethylene Glycol 3350) 17 Gm Powd.pack 1 Packet PO BID Metoprolol Succinate ( Xl ) (Metoprolol Succinate) 25 Mg Tab.er.24h 1 Tab PO DAILY Metolazone 5 Mg Tablet 1.5 Tab PO DAILY Metolazone 2.5 Mg Tablet 2.5 Mg PO PRN DAILY PRN Melatonin 3 Mg Tablet 2 Tab PO QHS Levothyroxine Sodium 125 Mcg Tablet 1 Tab PO DAILY Lantus Solostar (Insulin Glargine,Hum.rec.anlog) 100 Unit/1 Ml Insuln.pen 12 Unit SQ QHS Acidophilus (Lactobacillus Acidophilus) 1 Each Capsule 1 Each PO DAILY Glucose Gel (Dextrose) 38 Gm Gel..gram. 38 Gm PO PRN PRN Gabapentin (Gabapentin) 100 Mg Capsule 100 Mg PO TID Flonase Allergy Relief (Fluticasone Propionate) 9.9 Ml [place].susp 2 Sprays NS DAILY Fleet Enema (Na Phos,M-B/Na Phos,Di-Ba) 133 Ml Enema 133 Ml RC PRN PRN Ferrous Gluconate 240 Mg Tablet 240 Mg PO DAILY Uloric (Febuxostat) 80 Mg Tablet 1 Tab PO DAILY Cymbalta (Duloxetine Hcl) 60 Mg Capsule.dr 1 Cap PO HS Cymbalta (Duloxetine Hcl) 30 Mg Capsule. 1 Cap PO DAILY Vitamin B-12 (Cyanocobalamin (Vitamin B-12)) 1,000 Mcg Tablet 1 Tab PO DAILY Coumadin (Warfarin Sodium) 2 Mg Tablet 1 Tab PO DAILY Vitamin D3 (Cholecalciferol (Vitamin D3)) 5,000 Unit Tablet 1 Tab PO DAILY Buspirone Hcl 5 Mg Tablet 1 Tab PO BID Bisacodyl 10 Mg Supp.rect 10 Mg RC PRN DAILY PRN Tylenol (Acetaminophen) 325 Mg Tablet 2 Tab PO PRN Q6HRS PRN Sertraline Hcl 100 Mg Tablet 100 Mg PO DAILY Aspir 81 (Aspirin) 81 Mg Tablet. 1 Tab PO DAILY Vitals/I & O Vital Sign - Last 24 Hours 05/20/19 05/20/19 05/20/19 05/20/19 15:00 19:29 20:16 23:34 Temp 99.5 98.9 98.4 99.5 98.9 98.4 Pulse 70 69 70 Resp 18 20 18 B/P (MAP) 136/41 (72) 112/39 (63) 94/51 (65) Pulse Ox 18 98 97 O2 Delivery Room Air Room Air Room Air Room Air 05/21/19 05/21/19 05/21/19 05/21/19 03:44 07:00 08:00 08:39 Temp 98.1 97.7 98.1 97.7 Pulse 70 72 70 Resp 20 18 B/P (MAP) 113/67 (82) 142/68 (92) 113/67 Pulse Ox 97 94 O2 Delivery Room Air Room Air Room Air Intake and Output 05/20/19 05/20/19 05/21/19 15:00 23:00 07:00 Intake Total 240 ml Output Total 2 ml 825 ml Balance 238 ml -825 ml AUBREY HARDEN MD May 21, 2019 11:57
--- NOTE | 2019-05-21 12:07 | PDOC ---
Infectious Disease Note Subjective Subjective more awake, still not talking much ROS ROS no n/v/d/ Vital Sign Vital Signs Vital Signs Date Time Temp Pulse Resp B/P (MAP) Pulse Ox O2 Delivery O2 Flow Rate FiO2 05/21/19 11:00 98.1 70 20 137/69 (91) 95 Room Air 98.1 05/20/19 08:00 3.0 Physical Exam PHYSICAL EXAM GENERAL: awake HEENT: OC/OP- clean NECK: Supple. HEART: S1, S2 with a 2/6 murmur. Pacemaker ABDOMEN: Soft, nontender. No guarding. GENITOURINARY: Garcia in place. EXTREMITIES: Bilateral lower extremity BKAs Mild RUE erythema and dryness SKIN: warm to touch NEUROLOGIC: Nonverbal RIJ clean Labs Lab Laboratory Tests Test 05/20/19 16:39 05/21/19 03:50 05/21/19 07:42 05/21/19 11:25 Glucose (Fingerstick) 233 mg/dL (70-99) 248 mg/dL (70-99) 264 mg/dL (70-99) Prothrombin Time 16.4 SEC (11.7-14.0) Prothromb Time International Ratio 1.4 (0.8-1.1) Sodium Level 135 mmol/L (136-145) Potassium Level 4.3 mmol/L (3.5-5.1) Chloride Level 99 mmol/L (98-107) Carbon Dioxide Level 26 mmol/L (21-32) Anion Gap 10 (6-14) Blood Urea Nitrogen 92 mg/dL (8-26) Creatinine 3.2 mg/dL (0.7-1.3) Estimated GFR (Cockcroft-Gault) 18.9 Glucose Level 267 mg/dL (70-99) Calcium Level 8.6 mg/dL (8.5-10.1) Phosphorus Level 2.2 mg/dL (2.6-4.7) Albumin 2.0 g/dL (3.4-5.0) Micro Microbiology 05/16/19 Blood Culture - Preliminary, Resulted NO GROWTH AFTER 4 DAYS Objective Assessment Sepsis POA - fever/Hypotension/pneumonia/Encephalopathy/ABBY. Elevated Procalcitonin but ? reliability in renal failure RUE ? cellulitis Pneumonia ABBY on CKD Cephalexin allergy but has tolerated Zosyn/Meropenem in past Leukocytosis - better L max ? sinusitis Afib Cerebellar infarct - ? age Cardiomyopathy with pacemaker Plan Plan of Care change iv antibiotics to po when allowed F/u am labs and cults Monitor ZULMA VILLATORO MD May 21, 2019 12:07
--- NOTE | 2019-05-21 12:14 | PDOC ---
PULMONARY PROGRESS NOTES Subjective remains on room air, Vitals Vital Signs Date Time Temp Pulse Resp B/P (MAP) Pulse Ox O2 Delivery O2 Flow Rate FiO2 05/21/19 11:00 98.1 70 20 137/69 (91) 95 Room Air 98.1 05/20/19 08:00 3.0 ROS: No Increase Cough General: No acute distress, Confused Lungs: Other (decrease left base) Cardiovascular: S1, S2 Abdomen: Soft, Non-tender Neuro Exam: Alert Skin: Other (BLE BKA) Labs Laboratory Tests Test 05/19/19 16:41 05/19/19 20:59 05/20/19 06:00 05/20/19 07:44 Glucose (Fingerstick) 74 mg/dL (70-99) 138 mg/dL (70-99) 214 mg/dL (70-99) White Blood Count 9.3 x10^3/uL (4.0-11.0) Red Blood Count 2.83 x10^6/uL (4.30-5.70) Hemoglobin 8.0 g/dL (13.0-17.5) Hematocrit 24.6 % (39.0-53.0) Mean Corpuscular Volume 87 fL (79-100) Mean Corpuscular Hemoglobin 28 pg (25-35) Mean Corpuscular Hemoglobin Concent 33 g/dL (31-37) Red Cell Distribution Width 22.2 % (11.5-14.5) Platelet Count 193 x10^3/uL (140-400) Neutrophils (%) (Auto) 79 % (31-73) Lymphocytes (%) (Auto) 5 % (24-48) Monocytes (%) (Auto) 10 % (0-9) Eosinophils (%) (Auto) 6 % (0-3) Basophils (%) (Auto) 1 % (0-3) Neutrophils # (Auto) 7.3 x10^3/uL (1.8-7.7) Lymphocytes # (Auto) 0.5 x10^3/uL (1.0-4.8) Monocytes # (Auto) 0.9 x10^3/uL (0.0-1.1) Eosinophils # (Auto) 0.5 x10^3/uL (0.0-0.7) Basophils # (Auto) 0.1 x10^3/uL (0.0-0.2) Prothrombin Time 18.6 SEC (11.7-14.0) Prothromb Time International Ratio 1.6 (0.8-1.1) Sodium Level 137 mmol/L (136-145) Potassium Level 3.9 mmol/L (3.5-5.1) Chloride Level 100 mmol/L (98-107) Carbon Dioxide Level 27 mmol/L (21-32) Anion Gap 10 (6-14) Blood Urea Nitrogen 90 mg/dL (8-26) Creatinine 3.6 mg/dL (0.7-1.3) Estimated GFR (Cockcroft-Gault) 16.5 Glucose Level 213 mg/dL (70-99) Calcium Level 8.7 mg/dL (8.5-10.1) Phosphorus Level 2.3 mg/dL (2.6-4.7) Albumin 1.9 g/dL (3.4-5.0) Test 05/20/19 12:02 05/20/19 16:39 05/21/19 03:50 05/21/19 07:42 Glucose (Fingerstick) 256 mg/dL (70-99) 233 mg/dL (70-99) 248 mg/dL (70-99) Prothrombin Time 16.4 SEC (11.7-14.0) Prothromb Time International Ratio 1.4 (0.8-1.1) Sodium Level 135 mmol/L (136-145) Potassium Level 4.3 mmol/L (3.5-5.1) Chloride Level 99 mmol/L (98-107) Carbon Dioxide Level 26 mmol/L (21-32) Anion Gap 10 (6-14) Blood Urea Nitrogen 92 mg/dL (8-26) Creatinine 3.2 mg/dL (0.7-1.3) Estimated GFR (Cockcroft-Gault) 18.9 Glucose Level 267 mg/dL (70-99) Calcium Level 8.6 mg/dL (8.5-10.1) Phosphorus Level 2.2 mg/dL (2.6-4.7) Albumin 2.0 g/dL (3.4-5.0) Test 05/21/19 11:25 Glucose (Fingerstick) 264 mg/dL (70-99) Laboratory Tests Test 05/20/19 16:39 05/21/19 03:50 05/21/19 07:42 05/21/19 11:25 Glucose (Fingerstick) 233 mg/dL (70-99) 248 mg/dL (70-99) 264 mg/dL (70-99) Prothrombin Time 16.4 SEC (11.7-14.0) Prothromb Time International Ratio 1.4 (0.8-1.1) Sodium Level 135 mmol/L (136-145) Potassium Level 4.3 mmol/L (3.5-5.1) Chloride Level 99 mmol/L (98-107) Carbon Dioxide Level 26 mmol/L (21-32) Anion Gap 10 (6-14) Blood Urea Nitrogen 92 mg/dL (8-26) Creatinine 3.2 mg/dL (0.7-1.3) Estimated GFR (Cockcroft-Gault) 18.9 Glucose Level 267 mg/dL (70-99) Calcium Level 8.6 mg/dL (8.5-10.1) Phosphorus Level 2.2 mg/dL (2.6-4.7) Albumin 2.0 g/dL (3.4-5.0) Medications Active Scripts Medications Dose Route/Sig Max Daily Dose Days Date Category Trazodone Hcl 100 Mg Tablet 1 Tab PO QHS 05/16/19 Reported Tramadol Hcl 50 Mg Tablet 50 Mg PO Q8HRS 05/16/19 Reported Torsemide 20 Mg Tablet 100 Mg PO BID 05/16/19 Reported Temazepam 15 Mg Capsule 1 Cap PO QHS 05/16/19 Reported Sinemet Cr 25-100 Tablet (Carbidopa/Levodopa) 1 Each Tablet.er 1 Tab PO TID 05/16/19 Reported Simethicone 80 Mg Tab.chew 80 Mg PO PRN Q6HRS PRN 05/16/19 Reported Senna Plus 8.6-50 mg Tablet (Sennosides/Docusate Sodium) 1 Each Tablet 1 Each PO BID 05/16/19 Reported Renvela (Sevelamer Carbonate) 800 Mg Tablet 3 Tab PO TIDAC 05/16/19 Reported Protonix (Pantoprazole Sodium) 40 Mg Tablet.dr 40 Mg PO DAILYAC 05/16/19 Reported Pravastatin Sodium 20 Mg Tablet 1 Tab PO HS 05/16/19 Reported Potassium Chloride 20 Meq Tablet.er 2 Tab PO DAILY 05/16/19 Reported Klor-Con M20 (Potassium Chloride) 20 Meq Tab.er.prt 1 Tab PO PRN DAILY PRN 05/16/19 Reported Novolog (Insulin Aspart) 100 Unit/1 Ml Cartridge 8 Unit SQ TIDBFRMEAL 05/16/19 Reported NITROGLYCERIN SubLingual (Nitroglycerin) 0.4 Mg Tab.subl 1 Tab SL UD PRN 05/16/19 Reported Miralax (Polyethylene Glycol 3350) 17 Gm Powd.pack 1 Packet PO BID 05/16/19 Reported Metoprolol Succinate ( Xl ) (Metoprolol Succinate) 25 Mg Tab.er.24h 1 Tab PO DAILY 05/16/19 Reported Metolazone 5 Mg Tablet 1.5 Tab PO DAILY 05/16/19 Reported Metolazone 2.5 Mg Tablet 2.5 Mg PO PRN DAILY PRN 05/16/19 Reported Melatonin 3 Mg Tablet 2 Tab PO QHS 05/16/19 Reported Levothyroxine Sodium 125 Mcg Tablet 1 Tab PO DAILY 05/16/19 Reported Lantus Solostar (Insulin Glargine,Hum.rec.anlog) 100 Unit/1 Ml Insuln.pen 12 Unit SQ QHS 05/16/19 Reported Acidophilus (Lactobacillus Acidophilus) 1 Each Capsule 1 Each PO DAILY 05/16/19 Reported Glucose Gel (Dextrose) 38 Gm Gel..gram. 38 Gm PO PRN PRN 05/16/19 Reported Gabapentin (Gabapentin) 100 Mg Capsule 100 Mg PO TID 05/16/19 Reported Flonase Allergy Relief (Fluticasone Propionate) 9.9 Ml [place].susp 2 Sprays NS DAILY 05/16/19 Reported Fleet Enema (Na Phos,M-B/Na Phos,Di-Ba) 133 Ml Enema 133 Ml RC PRN PRN 05/16/19 Reported Ferrous Gluconate 240 Mg Tablet 240 Mg PO DAILY 05/16/19 Reported Uloric (Febuxostat) 80 Mg Tablet 1 Tab PO DAILY 05/16/19 Reported Cymbalta (Duloxetine Hcl) 60 Mg Capsule.dr 1 Cap PO HS 05/16/19 Reported Cymbalta (Duloxetine Hcl) 30 Mg Capsule.dr 1 Cap PO DAILY 05/16/19 Reported Vitamin B-12 (Cyanocobalamin (Vitamin B-12)) 1,000 Mcg Tablet 1 Tab PO DAILY 05/16/19 Reported Coumadin (Warfarin Sodium) 2 Mg Tablet 1 Tab PO DAILY 05/16/19 Reported Vitamin D3 (Cholecalciferol (Vitamin D3)) 5,000 Unit Tablet 1 Tab PO DAILY 05/16/19 Reported Buspirone Hcl 5 Mg Tablet 1 Tab PO BID 05/16/19 Reported Bisacodyl 10 Mg Supp.rect 10 Mg RC PRN DAILY PRN 05/16/19 Reported Tylenol (Acetaminophen) 325 Mg Tablet 2 Tab PO PRN Q6HRS PRN 05/16/19 Reported Sertraline Hcl 100 Mg Tablet 100 Mg PO DAILY 03/08/16 Reported Aspir 81 (Aspirin) 81 Mg Tablet.dr 1 Tab PO DAILY 03/08/16 Reported Novolog Flexpen (Insulin Aspart) 300 Units/3 Ml Insuln.pen 8 Units SQ TIDWMEALS 06/19/[address] CHEST 1. Moderate left lower lobe lung consolidation with moderate size left pleural effusion identified. 2. Moderate prominent appearing bilateral interstitial lung markings likely congestive changes. 3. Cholelithiasis. Electronically signed by: Austen Biggs MD (05/17/2019 9:42 AM) [place] [id number] Impression . 1. acute hypoxic respiratory failure. secondary to CHF and pneumonia, im proving. 2. Acute kidney injury on chronic kidney disease. 3. Abnormal chest x-ray with bilateral interstitial infiltrates with left-sided pleural effusion along with cardiomegaly c/w decompensated Systolic HF 5. Chronic anticoagulation 6. Cardiomyopathy EF 40-45%-stable 7. Hypotension --resolved 8. Encephalopathy , per neuro Overall patient is much better clinically Plan . 1. Continue with antibiotic per ID. 2. Monitor effusion for now, asymptomatic at present. If he does have worsening infectious picture (fever, leukocytosis), would do a thoracentesis on the left. As long as he continues to improve overall would simply monitor. Will repeat CXR tomorrow. 3. Monitor white cell count. 4. EF 40-45% 5. Hold further IV fluids 6. Monitor renal function. 7. Follow Neurology recommendations. 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 8. Follow nephrology recMARY Shah MD May 21, 2019 12:14
--- NOTE | 2019-05-21 12:38 | PDOC ---
Renal-Progress Notes Subjective Notes Notes NO NEW COMPLAINTS History of Present Illness Hx of present illness STABLE Vitals Vitals Vital Signs Date Time Temp Pulse Resp B/P (MAP) Pulse Ox O2 Delivery O2 Flow Rate FiO2 05/21/19 11:00 98.1 70 20 137/69 (91) 95 Room Air 98.1 05/20/19 08:00 3.0 Weight Weight [ ] I.O. Intake and Output Intake and Output 05/21/19 07:00 Intake Total 240 ml Output Total 827 ml Balance -587 ml Intake Oral 240 ml Output Urine Total 825 ml Stool Total 2 ml Labs Labs Laboratory Tests Test 05/20/19 16:39 05/21/19 03:50 05/21/19 07:42 05/21/19 11:25 Glucose (Fingerstick) 233 mg/dL (70-99) 248 mg/dL (70-99) 264 mg/dL (70-99) Prothrombin Time 16.4 SEC (11.7-14.0) Prothromb Time International Ratio 1.4 (0.8-1.1) Sodium Level 135 mmol/L (136-145) Potassium Level 4.3 mmol/L (3.5-5.1) Chloride Level 99 mmol/L (98-107) Carbon Dioxide Level 26 mmol/L (21-32) Anion Gap 10 (6-14) Blood Urea Nitrogen 92 mg/dL (8-26) Creatinine 3.2 mg/dL (0.7-1.3) Estimated GFR (Cockcroft-Gault) 18.9 Glucose Level 267 mg/dL (70-99) Calcium Level 8.6 mg/dL (8.5-10.1) Phosphorus Level 2.2 mg/dL (2.6-4.7) Albumin 2.0 g/dL (3.4-5.0) Micro Micro Microbiology 05/16/19 Blood Culture - Final, Complete NO GROWTH AFTER 5 DAYS Review of Systems Constitutional: yes: other (STABLE) Physical Exam General Appearance: no apparent distress Skin: dry Respiratory: decreased breath sounds Heart: S1S2 Abdomen: soft, bowel sounds present Genitourinary: bladder flat Extremities: pulses present, no edema Neurology: alert, confused Assessment Assessment IMP CKD STAGE 4-CR STABLE AT HIS BASELINE SEPSIS PNEUMONIA DEMENTIA POOR PO INTAKE WITH EMESIS THIS AM PLAN CONT PPN CONT ANTIBIOTICS CONT TORSEMIDE WILL FOLLOW BETO TAYLOR MD May 21, 2019 12:38
[2019-05-21] MEDS: CYANOCOBALAMIN (VITAMIN B-12) 1,000 MCG TABLET. PO SCH (14:15)
[2019-05-21] MEDS: CHOLECALCIFEROL (VITAMIN D3) 5,000 UNIT CAPSULE PO SCH (14:15)
[2019-05-21] MEDS: FERROUS SULFATE 325 MG TABLET. PO SCH (14:16)
[2019-05-21] MEDS: PANTOPRAZOLE 40 MG TABLET.DR. PO SCH (14:17)
[2019-05-21] MEDS: SENNOSIDES/DOCUSATE 8.6/50MG TABLET. PO SCH ×2 (14:17→20:31)
[2019-05-21] MEDS: POTASSIUM CHLORIDE 20 MEQ TABLET.ER. PO SCH (14:17)
[2019-05-21] MEDS: FLUTICASONE 50MCG/NASAL SPRAY 16GM BOTTLE. NS SCH (14:18)
[2019-05-21] MEDS: FEBUXOSTAT 40 MG TABLET PO SCH (14:18)
--- NOTE | 2019-05-21 15:06 | NUR ---
Wound care: consult to eval and treat skin tear to L dorsal hand. Picture present in chart. Cleansed and covered with xeroform and foam dressing. DTI noted to R buttock, pictured and measured (see detailed assessment). Applied skin prep and foam dressing for protection. 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 Turned to L side with wedge in P500 bed, legs floated on pillow. Call light in reach, bed low and locked. Follow up 05/30/19
[2019-05-21] MEDS ORDERED: WARFARIN 2 MG TABLET. PO SCH (16:00)
--- NOTE | 2019-05-21 16:10 | NUR ---
Pharmacy Warfarin Dosing Note S: Pharmacy consulted to assist with anticoagulation therapy O: CORAZON BLANCAS is a 78 year old M with Atrial Fibrillation LABS: Last INR: 1.4 Last HGB: 8 Last HCT: 24.6 Last PLT: 193 Vitamin K given: N Ongoing Drug Interactions: ASA, Zosyn A:INR of 1.4 is below desired range. Target range for this patient is: 2 - 3. Resume warfarin today, has been held since admission. P: Warfarin dose: 2 mg Today at 1600 Bridge Therapy: None Next INR due 05/22/19 Pharmacy anticoagulation service will continue to follow. MARY GRACE AGUILAR [facility], 05/21/19 2015
[2019-05-21] MEDS: ATORVASTATIN CALCIUM 10 MG TABLET. PO SCH (20:31)
[2019-05-21] MEDS: traZODone 100 MG TABLET. PO SCH (20:56)
[2019-05-21] MEDS ORDERED: NON FORMULARY ITEM (Melatonin 2 TAB) PO SCH (21:00)
[2019-05-21] MEDS: INSULIN GLARGINE SYRINGE. SQ SCH (21:07)
[2019-05-22] MEDS: PIPERACILLIN/TAZOBACTAM 2.25 GM in IV NORMAL SALINE 50ML 50 ML IV SCH ×2 (00:03→06:02)
[2019-05-22] MEDS: AMINO AC 3%/ELECTROLYTE/GLYCER 1,000 ML IV SCH ×2 (02:26→14:30)
[2019-05-22 03:20] VITALS: BP 126/52
[2019-05-22] MEDS: LEVOTHYROXINE 125 MCG TABLET PO SCH (06:02)
[2019-05-22 06:45] LABS: CALCIUM 8.7 mg/dL (8.5-10.1); GFR 20.3
[2019-05-22 06:51] LABS: PROTHROMBIN TIME PATIENT 15.2 SEC (11.7-14.0)
[2019-05-22 07:00] VITALS: BP 120/60
[2019-05-22 07:37] LABS: HEMATOCRIT 24.3 % (39.0-53.0); HEMOGLOBIN 7.8 g/dL (13.0-17.5); RED BLOOD COUNT 2.8 x10^6/uL (4.30-5.70); RED CELL DISTRIBUTION WIDTH 22.4 % (11.5-14.5); WHITE BLOOD COUNT 9.9 x10^3/uL (4.0-11.0)
[2019-05-22] MEDS: ASPIRIN ENTERIC COATED 81 MG TABLET.DR. PO SCH (08:30)
[2019-05-22] MEDS: FERROUS SULFATE 325 MG TABLET. PO SCH (08:31)
[2019-05-22] MEDS: POTASSIUM CHLORIDE 20 MEQ TABLET.ER. PO SCH (08:31)
[2019-05-22] MEDS: PANTOPRAZOLE 40 MG TABLET.DR. PO SCH (08:31)
[2019-05-22] MEDS: CHOLECALCIFEROL (VITAMIN D3) 5,000 UNIT CAPSULE PO SCH (08:33)
[2019-05-22] MEDS: busPIRone 5 MG TABLET. PO SCH ×2 (08:33→20:07)
[2019-05-22] MEDS: CYANOCOBALAMIN (VITAMIN B-12) 1,000 MCG TABLET. PO SCH (08:33)
[2019-05-22] MEDS: SENNOSIDES/DOCUSATE 8.6/50MG TABLET. PO SCH ×2 (08:33→20:09)
[2019-05-22] MEDS: LACTOBACILLUS RHAMNOSUS GG 1 CAPSULE. PO SCH ×2 (08:33→20:07)
[2019-05-22] MEDS: FEBUXOSTAT 40 MG TABLET PO SCH (08:33)
[2019-05-22] MEDS: METOPROLOL SUCC 24HR ER 25 MG TAB.ER.24H. PO SCH (08:33)
[2019-05-22] MEDS: CARBIDOPA/LEVODOPA CR 25/100MG TABLET.SA. PO SCH ×3 (08:34→20:09)
[2019-05-22] MEDS: FLUTICASONE 50MCG/NASAL SPRAY 16GM BOTTLE. NS SCH (08:54)
[2019-05-22] MEDS: INSULIN LISPRO 300 UNITS/3 ML VIAL. SQ SCH ×6 (08:57→18:10)
[2019-05-22] MEDS ORDERED: METOPROLOL SUCC 24HR ER 25 MG TAB.ER.24H. PO SCH (09:00)
[2019-05-22] MEDS: TORSEMIDE 20 MG TABLET. PO SCH ×2 (09:00→14:32)
[2019-05-22] MEDS: metOLazone 2.5 MG TABLET PO SCH (09:00)
[2019-05-22] MEDS: POLYETHYLENE GLYCOL 3350 17 GM PACKET. PO SCH ×2 (09:00→20:07)
[2019-05-22] MEDS ORDERED: LACTOBACILLUS RHAMNOSUS GG 1 CAPSULE. PO SCH (09:00)
[2019-05-22] MEDS ORDERED: ASPIRIN ENTERIC COATED 81 MG TABLET.DR. PO SCH (09:00)
[2019-05-22 10:53] VITALS: BP 145/67
--- NOTE | 2019-05-22 11:03 | PDOC ---
Infectious Disease Note Subjective Subjective more awake, talking much better ROS ROS no n/v/d/sob Vital Sign Vital Signs Vital Signs Date Time Temp Pulse Resp B/P (MAP) Pulse Ox O2 Delivery O2 Flow Rate FiO2 05/22/19 10:53 97.9 69 18 145/67 (93) 94 Room Air 97.9 Physical Exam PHYSICAL EXAM GENERAL: awake HEENT: OC/OP- clean NECK: Supple. HEART: S1, S2 with a 2/6 murmur. Pacemaker ABDOMEN: Soft, nontender. No guarding. GENITOURINARY: Garcia in place. EXTREMITIES: Bilateral lower extremity BKAs Mild RUE erythema and dryness SKIN: warm to touch NEUROLOGIC: Nonverbal RIJ clean Labs Lab Laboratory Tests Test 05/21/19 11:25 05/21/19 16:23 05/21/19 20:30 05/22/19 06:15 Glucose (Fingerstick) 264 mg/dL (70-99) 239 mg/dL (70-99) 204 mg/dL (70-99) Prothrombin Time 15.2 SEC (11.7-14.0) Prothromb Time International Ratio 1.2 (0.8-1.1) Sodium Level 135 mmol/L (136-145) Potassium Level 4.0 mmol/L (3.5-5.1) Chloride Level 98 mmol/L (98-107) Carbon Dioxide Level 27 mmol/L (21-32) Anion Gap 10 (6-14) Blood Urea Nitrogen 98 mg/dL (8-26) Creatinine 3.0 mg/dL (0.7-1.3) Estimated GFR (Cockcroft-Gault) 20.3 Glucose Level 235 mg/dL (70-99) Calcium Level 8.7 mg/dL (8.5-10.1) Test 05/22/19 07:11 05/22/19 07:20 05/22/19 10:22 Glucose (Fingerstick) 216 mg/dL (70-99) 267 mg/dL (70-99) White Blood Count 9.9 x10^3/uL (4.0-11.0) Red Blood Count 2.80 x10^6/uL (4.30-5.70) Hemoglobin 7.8 g/dL (13.0-17.5) Hematocrit 24.3 % (39.0-53.0) Mean Corpuscular Volume 87 fL (79-100) Mean Corpuscular Hemoglobin 28 pg (25-35) Mean Corpuscular Hemoglobin Concent 32 g/dL (31-37) Red Cell Distribution Width 22.4 % (11.5-14.5) Platelet Count 180 x10^3/uL (140-400) Micro Microbiology 05/16/19 Blood Culture - Preliminary, Resulted NO GROWTH AFTER 4 DAYS Objective Assessment Sepsis POA - fever/Hypotension/pneumonia/Encephalopathy/ABBY. Elevated Procalcitonin but ? reliability in renal failure RUE ? cellulitis Pneumonia ABBY on CKD Cephalexin allergy but has tolerated Zosyn/Meropenem in past Leukocytosis - better L max ? sinusitis Afib Cerebellar infarct - ? age Cardiomyopathy with pacemaker Plan Plan of Care change to po augmentin d/c to NH d/c ZULMA Murphy MD May 22, 2019 11:03
--- NOTE | 2019-05-22 11:18 | PDOC ---
PULMONARY PROGRESS NOTES Subjective remains on room air, Vitals Vital Signs Date Time Temp Pulse Resp B/P (MAP) Pulse Ox O2 Delivery O2 Flow Rate FiO2 05/22/19 10:53 97.9 69 18 145/67 (93) 94 Room Air 97.9 ROS: No Increase Cough General: Alert, No acute distress Lungs: Other (decrease left base) Cardiovascular: S1, S2 Abdomen: Soft, Non-tender Neuro Exam: Alert Skin: Other (BLE BKA) Labs Laboratory Tests Test 05/20/19 12:02 05/20/19 16:39 05/21/19 03:50 05/21/19 07:42 Glucose (Fingerstick) 256 mg/dL (70-99) 233 mg/dL (70-99) 248 mg/dL (70-99) Prothrombin Time 16.4 SEC (11.7-14.0) Prothromb Time International Ratio 1.4 (0.8-1.1) Sodium Level 135 mmol/L (136-145) Potassium Level 4.3 mmol/L (3.5-5.1) Chloride Level 99 mmol/L (98-107) Carbon Dioxide Level 26 mmol/L (21-32) Anion Gap 10 (6-14) Blood Urea Nitrogen 92 mg/dL (8-26) Creatinine 3.2 mg/dL (0.7-1.3) Estimated GFR (Cockcroft-Gault) 18.9 Glucose Level 267 mg/dL (70-99) Calcium Level 8.6 mg/dL (8.5-10.1) Phosphorus Level 2.2 mg/dL (2.6-4.7) Albumin 2.0 g/dL (3.4-5.0) Test 05/21/19 11:25 05/21/19 16:23 05/21/19 20:30 05/22/19 06:15 Glucose (Fingerstick) 264 mg/dL (70-99) 239 mg/dL (70-99) 204 mg/dL (70-99) Prothrombin Time 15.2 SEC (11.7-14.0) Prothromb Time International Ratio 1.2 (0.8-1.1) Sodium Level 135 mmol/L (136-145) Potassium Level 4.0 mmol/L (3.5-5.1) Chloride Level 98 mmol/L (98-107) Carbon Dioxide Level 27 mmol/L (21-32) Anion Gap 10 (6-14) Blood Urea Nitrogen 98 mg/dL (8-26) Creatinine 3.0 mg/dL (0.7-1.3) Estimated GFR (Cockcroft-Gault) 20.3 Glucose Level 235 mg/dL (70-99) Calcium Level 8.7 mg/dL (8.5-10.1) Test 05/22/19 07:11 05/22/19 07:20 05/22/19 10:22 Glucose (Fingerstick) 216 mg/dL (70-99) 267 mg/dL (70-99) White Blood Count 9.9 x10^3/uL (4.0-11.0) Red Blood Count 2.80 x10^6/uL (4.30-5.70) Hemoglobin 7.8 g/dL (13.0-17.5) Hematocrit 24.3 % (39.0-53.0) Mean Corpuscular Volume 87 fL (79-100) Mean Corpuscular Hemoglobin 28 pg (25-35) Mean Corpuscular Hemoglobin Concent 32 g/dL (31-37) Red Cell Distribution Width 22.4 % (11.5-14.5) Platelet Count 180 x10^3/uL (140-400) Laboratory Tests Test 05/21/19 11:25 05/21/19 16:23 05/21/19 20:30 05/22/19 06:15 Glucose (Fingerstick) 264 mg/dL (70-99) 239 mg/dL (70-99) 204 mg/dL (70-99) Prothrombin Time 15.2 SEC (11.7-14.0) Prothromb Time International Ratio 1.2 (0.8-1.1) Sodium Level 135 mmol/L (136-145) Potassium Level 4.0 mmol/L (3.5-5.1) Chloride Level 98 mmol/L (98-107) Carbon Dioxide Level 27 mmol/L (21-32) Anion Gap 10 (6-14) Blood Urea Nitrogen 98 mg/dL (8-26) Creatinine 3.0 mg/dL (0.7-1.3) Estimated GFR (Cockcroft-Gault) 20.3 Glucose Level 235 mg/dL (70-99) Calcium Level 8.7 mg/dL (8.5-10.1) Test 05/22/19 07:11 05/22/19 07:20 05/22/19 10:22 Glucose (Fingerstick) 216 mg/dL (70-99) 267 mg/dL (70-99) White Blood Count 9.9 x10^3/uL (4.0-11.0) Red Blood Count 2.80 x10^6/uL (4.30-5.70) Hemoglobin 7.8 g/dL (13.0-17.5) Hematocrit 24.3 % (39.0-53.0) Mean Corpuscular Volume 87 fL (79-100) Mean Corpuscular Hemoglobin 28 pg (25-35) Mean Corpuscular Hemoglobin Concent 32 g/dL (31-37) Red Cell Distribution Width 22.4 % (11.5-14.5) Platelet Count 180 x10^3/uL (140-400) Medications Active Scripts Medications Dose Route/Sig Max Daily Dose Days Date Category Trazodone Hcl 100 Mg Tablet 1 Tab PO QHS 05/16/19 Reported Tramadol Hcl 50 Mg Tablet 50 Mg PO Q8HRS 05/16/19 Reported Torsemide 20 Mg Tablet 100 Mg PO BID 05/16/19 Reported Temazepam 15 Mg Capsule 1 Cap PO QHS 05/16/19 Reported Sinemet Cr 25-100 Tablet (Carbidopa/Levodopa) 1 Each Tablet.er 1 Tab PO TID 05/16/19 Reported Simethicone 80 Mg Tab.chew 80 Mg PO PRN Q6HRS PRN 05/16/19 Reported Senna Plus 8.6-50 mg Tablet (Sennosides/Docusate Sodium) 1 Each Tablet 1 Each PO BID 05/16/19 Reported Renvela (Sevelamer Carbonate) 800 Mg Tablet 3 Tab PO TIDAC 05/16/19 Reported Protonix (Pantoprazole Sodium) 40 Mg Tablet.dr 40 Mg PO DAILYAC 05/16/19 Reported Pravastatin Sodium 20 Mg Tablet 1 Tab PO HS 05/16/19 Reported Potassium Chloride 20 Meq Tablet.er 2 Tab PO DAILY 05/16/19 Reported Klor-Con M20 (Potassium Chloride) 20 Meq Tab.er.prt 1 Tab PO PRN DAILY PRN 05/16/19 Reported Novolog (Insulin Aspart) 100 Unit/1 Ml Cartridge 8 Unit SQ TIDBFRMEAL 05/16/19 Reported NITROGLYCERIN SubLingual (Nitroglycerin) 0.4 Mg Tab.subl 1 Tab SL UD PRN 05/16/19 Reported Miralax (Polyethylene Glycol 3350) 17 Gm Powd.pack 1 Packet PO BID 05/16/19 Reported Metoprolol Succinate ( Xl ) (Metoprolol Succinate) 25 Mg Tab.er.24h 1 Tab PO DAILY 05/16/19 Reported Metolazone 5 Mg Tablet 1.5 Tab PO DAILY 05/16/19 Reported Metolazone 2.5 Mg Tablet 2.5 Mg PO PRN DAILY PRN 05/16/19 Reported Melatonin 3 Mg Tablet 2 Tab PO QHS 05/16/19 Reported Levothyroxine Sodium 125 Mcg Tablet 1 Tab PO DAILY 05/16/19 Reported Lantus Solostar (Insulin Glargine,Hum.rec.anlog) 100 Unit/1 Ml Insuln.pen 12 Unit SQ QHS 05/16/19 Reported Acidophilus (Lactobacillus Acidophilus) 1 Each Capsule 1 Each PO DAILY 05/16/19 Reported Glucose Gel (Dextrose) 38 Gm Gel..gram. 38 Gm PO PRN PRN 05/16/19 Reported Gabapentin (Gabapentin) 100 Mg Capsule 100 Mg PO TID 05/16/19 Reported Flonase Allergy Relief (Fluticasone Propionate) 9.9 Ml [place].susp 2 Sprays NS DAILY 05/16/19 Reported Fleet Enema (Na Phos,M-B/Na Phos,Di-Ba) 133 Ml Enema 133 Ml RC PRN PRN 05/16/19 Reported Ferrous Gluconate 240 Mg Tablet 240 Mg PO DAILY 05/16/19 Reported Uloric (Febuxostat) 80 Mg Tablet 1 Tab PO DAILY 05/16/19 Reported Cymbalta (Duloxetine Hcl) 60 Mg Capsule.dr 1 Cap PO HS 05/16/19 Reported Cymbalta (Duloxetine Hcl) 30 Mg Capsule.dr 1 Cap PO DAILY 05/16/19 Reported Vitamin B-12 (Cyanocobalamin (Vitamin B-12)) 1,000 Mcg Tablet 1 Tab PO DAILY 05/16/19 Reported Coumadin (Warfarin Sodium) 2 Mg Tablet 1 Tab PO DAILY 05/16/19 Reported Vitamin D3 (Cholecalciferol (Vitamin D3)) 5,000 Unit Tablet 1 Tab PO DAILY 05/16/19 Reported Buspirone Hcl 5 Mg Tablet 1 Tab PO BID 05/16/19 Reported Bisacodyl 10 Mg Supp.rect 10 Mg RC PRN DAILY PRN 05/16/19 Reported Tylenol (Acetaminophen) 325 Mg Tablet 2 Tab PO PRN Q6HRS PRN 05/16/19 Reported Sertraline Hcl 100 Mg Tablet 100 Mg PO DAILY 03/08/16 Reported Aspir 81 (Aspirin) 81 Mg Tablet.dr 1 Tab PO DAILY 03/08/16 Reported Novolog Flexpen (Insulin Aspart) 300 Units/3 Ml Insuln.pen 8 Units SQ TIDWMEALS 06/19/[address] CHEST 1. Moderate left lower lobe lung consolidation with moderate size left pleural effusion identified. 2. Moderate prominent appearing bilateral interstitial lung markings likely congestive changes. 3. Cholelithiasis. Electronically signed by: Austen Biggs MD (05/17/2019 9:42 AM) [place] [id number] Impression . 1. acute hypoxic respiratory failure. secondary to CHF and pneumonia, improving. 2. Acute kidney injury on chronic kidney disease. 3. Abnormal chest x-ray with bilateral interstitial infiltrates with left-sided pleural effusion along with cardiomegaly c/w decompensated Systolic HF 5. Chronic anticoagulation 6. Cardiomyopathy EF 40-45%-stable 7. Hypotension --resolved 8. Encephalopathy , per neuro Overall patient is much better clinically Plan . 1. Continue with antibiotic per ID. now on PO 2. Monitor effusion for now, asymptomatic at present. continues to improve overall would simply monitor.effusion 3. Monitor white cell count. 4. EF 40-45% 5. Dysphagia diet 6. Monitor renal function. 7. Follow Neurology recommendations. 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 8. Follow nephrology recs d/w RN/ no further rec will seeprn ok with dc to MARY TREJO MD May 22, 2019 11:18
[2019-05-22] MEDS: ONDANSETRON PF 4 MG/2 ML VIAL. IV PRN ×2 (12:15→22:00)
--- NOTE | 2019-05-22 12:21 | PDOC ---
PROGRESS NOTES Chief Complaint Chief Complaint Severe sepsis diarrhea HCAP \ SNU resident Metabolic encephalopathy, seems better Hx CVA Weakness and debility Pleural effusion CHF, stable Obesity, BMI 35 RUE ? cellulitis ABBY on CKD - likely this is vasomotor nephropathy due to poor PO intake Afib Cerebellar infarct - on CT scan, ? age Cardiomyopathy with pacemaker Severe protein calorie malnutrition\ dysphagia -on dysphagia 1 diet History of Present Illness History of Present Illness emesis and diarrhea today SNU resident needs t be fed in SNU HE is bilateral BKA - so wheelchair bound HE is DNR< active med treatment' he is on warf for maybe bed bound issues, bilateral BKA PLAN: Increased lantus to 15 from 12 units qhs SSI high dose SHIFT pls IV zyvox, zosyn per ID--switched to augmentin per ID DNR WArf per pharmacy goal 2-3 held off sedating meds for now like gabapentin, trazadone, cymbalta etc COnt dysphagia 1 diet dc back to SNF soon Vitals Vitals Vital Signs Date Time Temp Pulse Resp B/P (MAP) Pulse Ox O2 Delivery O2 Flow Rate FiO2 05/22/19 10:53 97.9 69 18 145/67 (93) 94 Room Air 97.9 Physical Exam Physical Exam GENERAL: awake HEENT: OC/OP- clean NECK: Supple. HEART: S1, S2 with a 2/6 murmur. Pacemaker ABDOMEN: Soft, nontender. No guarding. GENITOURINARY: Garcia in place. EXTREMITIES: Bilateral lower extremity BKAs Mild RUE erythema and dryness SKIN: warm to touch NEUROLOGIC: Nonverbal RIJ clean General: Alert, Cooperative, No acute distress, Other (oriented to person only) Heart: Regular rate, Normal S1, Normal S2, Other (3/6 systolic murmur ) Lungs: Other (decrease left base) Abdomen: Normal bowel sounds, Soft Extremities: No clubbing, Other (bilateral BKA, trace edema ) Skin: No rashes Labs LABS Laboratory Tests Test 05/21/19 16:23 05/21/19 20:30 05/22/19 06:15 05/22/19 07:11 Glucose (Fingerstick) 239 mg/dL (70-99) 204 mg/dL (70-99) 216 mg/dL (70-99) Prothrombin Time 15.2 SEC (11.7-14.0) Prothromb Time International Ratio 1.2 (0.8-1.1) Sodium Level 135 mmol/L (136-145) Potassium Level 4.0 mmol/L (3.5-5.1) Chloride Level 98 mmol/L (98-107) Carbon Dioxide Level 27 mmol/L (21-32) Anion Gap 10 (6-14) Blood Urea Nitrogen 98 mg/dL (8-26) Creatinine 3.0 mg/dL (0.7-1.3) Estimated GFR (Cockcroft-Gault) 20.3 Glucose Level 235 mg/dL (70-99) Calcium Level 8.7 mg/dL (8.5-10.1) Test 05/22/19 07:20 05/22/19 10:22 White Blood Count 9.9 x10^3/uL (4.0-11.0) Red Blood Count 2.80 x10^6/uL (4.30-5.70) Hemoglobin 7.8 g/dL (13.0-17.5) Hematocrit 24.3 % (39.0-53.0) Mean Corpuscular Volume 87 fL (79-100) Mean Corpuscular Hemoglobin 28 pg (25-35) Mean Corpuscular Hemoglobin Concent 32 g/dL (31-37) Red Cell Distribution Width 22.4 % (11.5-14.5) Platelet Count 180 x10^3/uL (140-400) Glucose (Fingerstick) 267 mg/dL (70-99) Assessment and Plan Assessmemt and Plan Problems Medical Problems: (1) Acute kidney injury superimposed on CKD Status: Acute (2) Acute on chronic combined systolic (congestive) and diastolic (congestive) heart failure Status: Acute (3) Acute respiratory failure Status: Acute (4) Acute respiratory failure with hypoxia Status: Acute (5) ABBY (acute kidney injury) Status: Acute (6) CAD (coronary artery disease) Status: Chronic (7) Chronic a-fib Status: Chronic (8) Chronic kidney disease, stage 4 (severe) Status: Acute (9) CKD (chronic kidney disease), stage III Status: Chronic (10) CVA (cerebral vascular accident) Status: Acute (11) DM2 (diabetes mellitus, type 2) Status: Chronic (12) Dyspnea Status: Acute (13) HCAP (healthcare-associated pneumonia) Status: Acute (14) Metabolic encephalopathy Status: Acute (15) Pleural effusion on left Status: Acute (16) Pleural effusion, left Status: Acute (17) Pulmonary edema Status: Acute (18) Sepsis Status: Acute (19) Severe sepsis Status: Acute Comment Review of Relevant I have reviewed the following items nestor (where applicable) has been applied. Labs Laboratory Tests Test 05/20/19 16:39 05/21/19 03:50 05/21/19 07:42 05/21/19 11:25 Glucose (Fingerstick) 233 mg/dL (70-99) 248 mg/dL (70-99) 264 mg/dL (70-99) Prothrombin Time 16.4 SEC (11.7-14.0) Prothromb Time International Ratio 1.4 (0.8-1.1) Sodium Level 135 mmol/L (136-145) Potassium Level 4.3 mmol/L (3.5-5.1) Chloride Level 99 mmol/L (98-107) Carbon Dioxide Level 26 mmol/L (21-32) Anion Gap 10 (6-14) Blood Urea Nitrogen 92 mg/dL (8-26) Creatinine 3.2 mg/dL (0.7-1.3) Estimated GFR (Cockcroft-Gault) 18.9 Glucose Level 267 mg/dL (70-99) Calcium Level 8.6 mg/dL (8.5-10.1) Phosphorus Level 2.2 mg/dL (2.6-4.7) Albumin 2.0 g/dL (3.4-5.0) Test 05/21/19 16:23 05/21/19 20:30 05/22/19 06:15 05/22/19 07:11 Glucose (Fingerstick) 239 mg/dL (70-99) 204 mg/dL (70-99) 216 mg/dL (70-99) Prothrombin Time 15.2 SEC (11.7-14.0) Prothromb Time International Ratio 1.2 (0.8-1.1) Sodium Level 135 mmol/L (136-145) Potassium Level 4.0 mmol/L (3.5-5.1) Chloride Level 98 mmol/L (98-107) Carbon Dioxide Level 27 mmol/L (21-32) Anion Gap 10 (6-14) Blood Urea Nitrogen 98 mg/dL (8-26) Creatinine 3.0 mg/dL (0.7-1.3) Estimated GFR (Cockcroft-Gault) 20.3 Glucose Level 235 mg/dL (70-99) Calcium Level 8.7 mg/dL (8.5-10.1) Test 05/22/19 07:20 05/22/19 10:22 White Blood Count 9.9 x10^3/uL (4.0-11.0) Red Blood Count 2.80 x10^6/uL (4.30-5.70) Hemoglobin 7.8 g/dL (13.0-17.5) Hematocrit 24.3 % (39.0-53.0) Mean Corpuscular Volume 87 fL (79-100) Mean Corpuscular Hemoglobin 28 pg (25-35) Mean Corpuscular Hemoglobin Concent 32 g/dL (31-37) Red Cell Distribution Width 22.4 % (11.5-14.5) Platelet Count 180 x10^3/uL (140-400) Glucose (Fingerstick) 267 mg/dL (70-99) Laboratory Tests Test 05/21/19 16:23 05/21/19 20:30 05/22/19 06:15 05/22/19 07:11 Glucose (Fingerstick) 239 mg/dL (70-99) 204 mg/dL (70-99) 216 mg/dL (70-99) Prothrombin Time 15.2 SEC (11.7-14.0) Prothromb Time International Ratio 1.2 (0.8-1.1) Sodium Level 135 mmol/L (136-145) Potassium Level 4.0 mmol/L (3.5-5.1) Chloride Level 98 mmol/L (98-107) Carbon Dioxide Level 27 mmol/L (21-32) Anion Gap 10 (6-14) Blood Urea Nitrogen 98 mg/dL (8-26) Creatinine 3.0 mg/dL (0.7-1.3) Estimated GFR (Cockcroft-Gault) 20.3 Glucose Level 235 mg/dL (70-99) Calcium Level 8.7 mg/dL (8.5-10.1) Test 05/22/19 07:20 05/22/19 10:22 White Blood Count 9.9 x10^3/uL (4.0-11.0) Red Blood Count 2.80 x10^6/uL (4.30-5.70) Hemoglobin 7.8 g/dL (13.0-17.5) Hematocrit 24.3 % (39.0-53.0) Mean Corpuscular Volume 87 fL (79-100) Mean Corpuscular Hemoglobin 28 pg (25-35) Mean Corpuscular Hemoglobin Concent 32 g/dL (31-37) Red Cell Distribution Width 22.4 % (11.5-14.5) Platelet Count 180 x10^3/uL (140-400) Glucose (Fingerstick) 267 mg/dL (70-99) Microbiology 05/16/19 Blood Culture - Final, Complete NO GROWTH AFTER 5 DAYS Medications Current Medications Vancomycin HCl (Vanco Per Pharmacy) 1 each PRN DAILY PRN MC SEE COMMENTS Last administered on 05/16/19at 02:12; Start 05/15/19 at 23:00; Stop 05/17/19 at 06:52; Status DC Levofloxacin/ Dextrose 150 ml @ 100 mls/hr 1X ONCE IV Last administered on 05/16/19at 00:17; Start 05/15/19 at 23:30; Stop 05/16/19 at 00:59; Status DC Sodium Chloride 1,000 ml @ 1,000 mls/hr 1X ONCE IV ; Start 05/15/19 at 23:30; Stop 05/16/19 at 00:29; Status DC Sodium Chloride 1,000 ml @ 1,000 mls/hr 1X ONCE IV Last administered on 05/16/19at 00:17; Start 05/15/19 at 23:30; Stop 05/16/19 at 00:29; Status DC Sodium Chloride 1,000 ml @ 1,000 mls/hr 1X ONCE IV Last administered on 05/16/19at 00:17; Start 05/15/19 at 23:30; Stop 05/16/19 at 00:29; Status DC Vancomycin HCl 2 gm/Sodium Chloride 500 ml @ 250 mls/hr 1X ONCE IV Last administered on 05/16/19at 00:15; Start 05/16/19 at 00:00; Stop 05/16/19 at 01:59; Status DC Ondansetron HCl (Zofran) 4 mg PRN Q8HRS PRN IV NAUSEA/VOMITING 1ST CHOICE; Start 05/16/19 at 01:45; Stop 05/17/19 at 01:44; Status DC Vancomycin HCl 1.25 gm/Sodium Chloride 250 ml @ 167 mls/hr Q48H IV ; Start 05/18/19 at 00:00; Stop 05/17/19 at 06:52; Status DC Vancomycin HCl (Vancomycin Trough Level) 1 each 1X ONCE MC ; Start 05/19/19 at 23:30; Stop 05/17/19 at 07:19; Status DC Albumin Human 100 ml @ 100 mls/hr 1X ONCE IV Last administered on 05/16/19at 04:14; Start 05/16/19 at 04:30; Stop 05/16/19 at 05:29; Status DC Norepinephrine Bitartrate 250 ml @ 17.031 mls/ hr CONT PRN IV SEE I/O RECORD Last administered on 05/16/19at 04:21; Start 05/16/19 at 04:00; Stop 05/19/19 at 08:36; Status DC Info (FLU VACCINE SCREEN per RX) 1 each 1X ONCE MC ; Start 05/16/19 at 05:00; Stop 05/16/19 at 05:01; Status UNV Albumin Human 250 ml @ 125 mls/hr 1X ONCE IV Last administered on 05/16/19at 05:11; Start 05/16/19 at 05:30; Stop 05/16/19 at 07:29; Status DC Piperacillin Sod/ Tazobactam Sod 2.25 gm/Sodium Chloride 50 ml @ 100 mls/hr Q6HRS IV Last administered on 05/22/19at 06:02; Start 05/16/19 at 13:00; Stop 05/22/19 at 11:04; Status DC Linezolid/Dextrose 300 ml @ 300 mls/hr Q12HR IV Last administered on 05/22/19at 09:01; Start 05/17/19 at 09:00; Stop 05/22/19 at 11:04; Status DC Furosemide (Lasix) 40 mg 1X ONCE IVP Last administered on 05/17/19at 15:47; Start 05/17/19 at 15:45; Stop 05/17/19 at 15:46; Status DC Amino Acids/ Glycerin/ Electrolytes 1,000 ml @ 80 mls/hr [id number] IV Last administered on 05/22/19 02:26; Start 05/18/19 at 10:00 Aspirin (Ecotrin) 81 mg DAILYWBKFT PO Last administered on 05/22/19 08:31; Start 05/18/19 at 12:45 Furosemide (Lasix) 40 mg 1X ONCE IVP Last administered on 05/18/19at 15:39; Start 05/18/19 at 15:00; Stop 05/18/19 at 15:01; Status DC Metoprolol Succinate (Toprol Xl) 25 mg DAILY PO Last administered on 05/22/19 08:34; Start 05/18/19 at 15:00 Insulin Glargine (Lantus Syringe) 12 unit QHS SQ Last administered on 05/20/19at 23:37; Start 05/18/19 at 21:00; Stop 05/21/19 at 09:11; Status DC Insulin Human Lispro (HumaLOG) 0-5 UNITS TIDWMEALS SQ Last administered on 05/20/19at 17:22; Start 05/18/19 at 17:00; Stop 05/21/19 at 09:11; Status DC Dextrose (Dextrose 50%-Water Syringe) 12.5 gm PRN Q15MIN PRN IV SEE COMMENTS; Start 05/18/19 at 17:00; Stop 05/21/19 at 09:12; Status DC Dextrose 250 ml PRN Q15MIN PRN IV SEE COMMENTS; Start 05/18/19 at 17:00; Stop 05/21/19 at 09:12; Status DC Insulin Human Lispro (HumaLOG) 6 units TIDWMEALS SQ Last administered on 05/22/19at 08:58; Start 05/18/19 at 17:00 Buspirone HCl (Buspar) 5 mg BID PO Last administered on 05/22/19 08:34; Start 05/19/19 at 10:00 Carbidopa/Levodopa (Sinemet Cr) 1 tab.sa TID PO Last administered on 05/22/19 08:34; Start 05/19/19 at 09:00 Levothyroxine Sodium (Synthroid) 125 mcg DAILY06 PO Last administered on 05/22/19 06:02; Start 05/19/19 at 10:30 Polyethylene Glycol (miraLAX PACKET) 17 gm BID PO Last administered on 05/21/19at 08:39; Start 05/19/19 at 09:00 Sevelamer Carbonate (Renvela) 2,400 mg TIDAC PO Last administered on 05/20/19at 09:37; Start 05/19/19 at 11:30; Stop 05/20/19 at 14:10; Status DC Lactobacillus Rhamnosus (Culturelle) 1 cap BID PO Last administered on 05/22/19at 08:34; Start 05/20/19 at 21:00 Insulin Glargine (Lantus Syringe) 15 unit QHS SQ Last administered on 05/21/19at 21:08; Start 05/21/19 at 21:00 Insulin Human Lispro (HumaLOG) 0-9 UNITS TIDWMEALS SQ Last administered on 05/22/19at 08:58; Start 05/21/19 at 09:30 Dextrose (Dextrose 50%-Water Syringe) 12.5 gm PRN Q15MIN PRN IV SEE COMMENTS; Start 05/21/19 at 09:15 Dextrose 250 ml PRN Q15MIN PRN IV SEE COMMENTS; Start 05/21/19 at 09:15 Acetaminophen (Tylenol) 650 mg PRN Q6HRS PRN PO MILD PAIN 1-3; Start 05/21/19 at 09:15 Aspirin (Ecotrin) 81 mg DAILY PO ; Start 05/22/19 at 09:00; Status UNV Bisacodyl (Dulcolax Supp) 10 mg PRN DAILY PRN RC CONSTIPATION; Start 05/21/19 at 09:15 Cyanocobalamin (Vitamin B-12) 1,000 mcg DAILY PO Last administered on 05/22/19at 08:34; Start 05/21/19 at 10:00 Glucose (Insta-Glucose) 15 gm PRN DAILY PRN PO Hypoglycemia; Start 05/21/19 at 09:15 Metolazone (Zaroxolyn) 2.5 mg PRN DAILY PRN PO Weight gain/Fluid gain; Start 05/21/19 at 09:15 Metoprolol Succinate (Toprol Xl) 25 mg DAILY PO ; Start 05/22/19 at 09:00; Status UNV Sodium Monofluorophosphate (Fleet Adult) 133 ml PRN DAILY PRN RC CONSTIPATION; Start 05/21/19 at 09:15 Pantoprazole Sodium (Protonix) 40 mg DAILYAC PO Last administered on 05/22/19 08:31; Start 05/21/19 at 10:00 Potassium Chloride (Klor-Con) 20 meq PRN DAILY PRN PO IF PRN METOLAZONE GIVEN; Start 05/21/19 at 09:15 Senna/Docusate Sodium (Senna Plus) 1 tab BID PO Last administered on 05/22/19 08:34; Start 05/21/19 at 10:00 Simethicone (Gas-X) 80 mg PRN Q6HRS PRN PO HEARTBURN / GAS; Start 05/21/19 at 09:15 Torsemide (Demadex) 100 mg BID92 PO ; Start 05/21/19 at 10:00 Trazodone HCl (Desyrel) 100 mg QHS PO Last administered on 05/21/19at 21:08; Start 05/21/19 at 21:00 Warfarin Sodium (Coumadin) 2 mg DAILY16 PO ; Start 05/21/19 at 16:00 Febuxostat (Uloric) 80 mg DAILY PO Last administered on 05/22/19 08:34; Start 05/21/19 at 10:00 Ferrous Sulfate (Feosol) 325 mg DAILYWBKFT PO Last administered on 05/22/19 08:32; Start 05/21/19 at 10:00 Fluticasone Propionate (Flonase) 2 spray DAILY NS Last administered on 05/22/19at 08:58; Start 05/21/19 at 10:00 Lactobacillus Rhamnosus (Culturelle) 1 cap DAILY PO ; Start 05/22/19 at 09:00; Status UNV Non-Formulary Medication (Melatonin ) 2 tab QHS PO ; Start 05/21/19 at 21:00; Status UNV Metolazone (Zaroxolyn) 7.5 mg DAILY PO ; Start 05/21/19 at 10:00 Potassium Chloride (Klor-Con) 40 meq DAILYWBKFT PO Last administered on 05/22/19at 08:31; Start 05/21/19 at 10:00 Atorvastatin Calcium (Lipitor) 5 mg QHS PO ; Start 05/21/19 at 21:00 Vitamin D (Vitamin D3) 5,000 unit DAILY PO Last administered on 9/24/19at 08:34; Start 05/21/19 at 10:00 Warfarin Sodium (Coumadin Per Pharmacy) 1 each PRN DAILY PRN MC SEE COMMENTS Last administered on 05/21/19at 16:09; Start 05/21/19 at 09:15 Ondansetron HCl (Zofran) 4 mg PRN Q6HRS PRN IV NAUSEA/VOMITING Last administered on 05/22/19at 12:15; Start 05/21/19 at 11:00 Amoxicillin/ Clavulanate Potassium (Augmentin 875/ 125mg) 1 tab DAILY PO ; Start 05/23/19 at 09:00 Active Scripts Active Novolog Flexpen (Insulin Aspart) 300 Units/3 Ml Insuln.pen 8 Units SQ TIDWMEALS Reported Trazodone Hcl 100 Mg Tablet 1 Tab PO QHS Tramadol Hcl 50 Mg Tablet 50 Mg PO Q8HRS Torsemide 20 Mg Tablet 100 Mg PO BID Temazepam 15 Mg Capsule 1 Cap PO QHS Sinemet Cr 25-100 Tablet (Carbidopa/Levodopa) 1 Each Tablet.er 1 Tab PO TID Simethicone 80 Mg Tab.chew 80 Mg PO PRN Q6HRS PRN Senna Plus 8.6-50 mg Tablet (Sennosides/Docusate Sodium) 1 Each Tablet 1 Each PO BID Renvela (Sevelamer Carbonate) 800 Mg Tablet 3 Tab PO TIDAC Protonix (Pantoprazole Sodium) 40 Mg Tablet.dr 40 Mg PO DAILYAC Pravastatin Sodium 20 Mg Tablet 1 Tab PO HS Potassium Chloride 20 Meq Tablet.er 2 Tab PO DAILY Klor-Con M20 (Potassium Chloride) 20 Meq Tab.er.prt 1 Tab PO PRN DAILY PRN Novolog (Insulin Aspart) 100 Unit/1 Ml Cartridge 8 Unit SQ TIDBFRMEAL NITROGLYCERIN SubLingual (Nitroglycerin) 0.4 Mg Tab.subl 1 Tab SL UD PRN Miralax (Polyethylene Glycol 3350) 17 Gm Powd.pack 1 Packet PO BID Metoprolol Succinate ( Xl ) (Metoprolol Succinate) 25 Mg Tab.er.24h 1 Tab PO DAILY Metolazone 5 Mg Tablet 1.5 Tab PO DAILY Metolazone 2.5 Mg Tablet 2.5 Mg PO PRN DAILY PRN Melatonin 3 Mg Tablet 2 Tab PO QHS Levothyroxine Sodium 125 Mcg Tablet 1 Tab PO DAILY Lantus Solostar (Insulin Glargine,Hum.rec.anlog) 100 Unit/1 Ml Insuln.pen 12 Unit SQ QHS Acidophilus (Lactobacillus Acidophilus) 1 Each Capsule 1 Each PO DAILY Glucose Gel (Dextrose) 38 Gm Gel..gram. 38 Gm PO PRN PRN Gabapentin (Gabapentin) 100 Mg Capsule 100 Mg PO TID Flonase Allergy Relief (Fluticasone Propionate) 9.9 Ml [place].susp 2 Sprays NS DAILY Fleet Enema (Na Phos,M-B/Na Phos,Di-Ba) 133 Ml Enema 133 Ml RC PRN PRN Ferrous Gluconate 240 Mg Tablet 240 Mg PO DAILY Uloric (Febuxostat) 80 Mg Tablet 1 Tab PO DAILY Cymbalta (Duloxetine Hcl) 60 Mg Capsule.dr 1 Cap PO HS Cymbalta (Duloxetine Hcl) 30 Mg Capsule.dr 1 Cap PO DAILY Vitamin B-12 (Cyanocobalamin (Vitamin B-12)) 1,000 Mcg Tablet 1 Tab PO DAILY Coumadin (Warfarin Sodium) 2 Mg Tablet 1 Tab PO DAILY Vitamin D3 (Cholecalciferol (Vitamin D3)) 5,000 Unit Tablet 1 Tab PO DAILY Buspirone Hcl 5 Mg Tablet 1 Tab PO BID Bisacodyl 10 Mg Supp.rect 10 Mg RC PRN DAILY PRN Tylenol (Acetaminophen) 325 Mg Tablet 2 Tab PO PRN Q6HRS PRN Sertraline Hcl 100 Mg Tablet 100 Mg PO DAILY Aspir 81 (Aspirin) 81 Mg Tablet.dr 1 Tab PO DAILY Vitals/I & O Vital Sign - Last 24 Hours 05/21/19 05/21/19 05/21/19 05/21/19 15:00 19:20 20:00 23:20 Temp 97.6 98.1 98.8 97.6 98.1 98.8 Pulse 71 69 70 Resp 20 17 17 B/P (MAP) 133/64 (87) 127/54 (78) 129/51 (77) Pulse Ox 91 97 98 O2 Delivery Room Air Room Air Room Air Room Air 05/22/19 05/22/19 05/22/19 05/22/19 03:20 07:00 08:00 08:34 Temp 97.9 98.2 97.9 98.2 Pulse 69 70 70 Resp 17 18 B/P (MAP) 126/52 (76) 120/60 (80) 120/60 Pulse Ox 96 O2 Delivery Room Air Room Air Room Air 05/22/19 10:53 Temp 97.9 97.9 Pulse 69 Resp 18 B/P (MAP) 145/67 (93) Pulse Ox 94 O2 Delivery Room Air l Intake and Output 05/21/19 05/21/19 05/22/19 15:00 23:00 07:00 Intake Total 600 ml Output Total 350 ml Balance 250 ml ROMARIO ANDRE MD May 22, 2019 12:21
--- NOTE | 2019-05-22 12:28 | NUR ---
[facility] faxed updates to [facility].
--- NOTE | 2019-05-22 13:53 | PDOC ---
Renal-Progress Notes Subjective Notes Notes NO NEW COMPLAINTS History of Present Illness Hx of present illness STABLE Vitals Vitals Vital Signs Date Time Temp Pulse Resp B/P (MAP) Pulse Ox O2 Delivery O2 Flow Rate FiO2 05/22/19 10:53 97.9 69 18 145/67 (93) 94 Room Air 97.9 Weight Weight [ ] I.O. Intake and Output Intake and Output 05/22/19 07:00 Intake Total 600 ml Output Total 350 ml Balance 250 ml Intake Oral 600 ml Output Urine Total 350 ml # Voids 1 Labs Labs Laboratory Tests Test 05/21/19 16:23 05/21/19 20:30 05/22/19 06:15 05/22/19 07:11 Glucose (Fingerstick) 239 mg/dL (70-99) 204 mg/dL (70-99) 216 mg/dL (70-99) Prothrombin Time 15.2 SEC (11.7-14.0) Prothromb Time International Ratio 1.2 (0.8-1.1) Sodium Level 135 mmol/L (136-145) Potassium Level 4.0 mmol/L (3.5-5.1) Chloride Level 98 mmol/L (98-107) Carbon Dioxide Level 27 mmol/L (21-32) Anion Gap 10 (6-14) Blood Urea Nitrogen 98 mg/dL (8-26) Creatinine 3.0 mg/dL (0.7-1.3) Estimated GFR (Cockcroft-Gault) 20.3 Glucose Level 235 mg/dL (70-99) Calcium Level 8.7 mg/dL (8.5-10.1) Test 05/22/19 07:20 05/22/19 10:22 White Blood Count 9.9 x10^3/uL (4.0-11.0) Red Blood Count 2.80 x10^6/uL (4.30-5.70) Hemoglobin 7.8 g/dL (13.0-17.5) Hematocrit 24.3 % (39.0-53.0) Mean Corpuscular Volume 87 fL (79-100) Mean Corpuscular Hemoglobin 28 pg (25-35) Mean Corpuscular Hemoglobin Concent 32 g/dL (31-37) Red Cell Distribution Width 22.4 % (11.5-14.5) Platelet Count 180 x10^3/uL (140-400) Glucose (Fingerstick) 267 mg/dL (70-99) Micro Micro Microbiology 05/16/19 Blood Culture - Final, Complete NO GROWTH AFTER 5 DAYS Review of Systems Constitutional: yes: other (STABLE) Physical Exam General Appearance: no apparent distress Skin: dry Respiratory: decreased breath sounds Heart: S1S2 Abdomen: soft, bowel sounds present Genitourinary: bladder flat Extremities: pulses present, no edema Neurology: alert, confused Assessment Assessment IMP CKD STAGE 4-CR STABLE AT HIS BASELINE OF ABOUT 3.0 SEPSIS PNEUMONIA DEMENTIA POOR PO INTAKE WITH EMESIS THIS AM PLAN CONT PPN CONT ANTIBIOTICS CONT TORSEMIDE WILL FOLLOW BETO TAYLOR MD May 22, 2019 13:53
--- NOTE | 2019-05-22 14:41 | NUR ---
The patient had 1 episode of vomiting about 30mL of previously ingested food, prn Zofran given. Paged Dr. Ferguson at [phone], updated of patient's status. Plan is to observe the patient for another night and possible discharge tomorrow.
[2019-05-22 15:00] VITALS: BP 121/54
--- NOTE | 2019-05-22 15:43 | NUR ---
Pharmacy Warfarin Dosing Note S:Pharmacy consulted to assist with anticoagulation therapy started with target INR: 2 -3 O:CORAZON BLANCAS is a 78 year old M with Atrial Fibrillation LABS: Last INR: 1.2 Last HGB: 8 Last HCT: 24.6 Last PLT: 193 Last dose of Hold given on at Previous Regimen: 2 mg/day Vitamin K given: N Drug Interaction Changes: New Interacting Drug Ongoing Drug Interactions: ASA, Zosyn A:INR of 1.2 is below desired range. Target range for this patient is: 2 -3 P: Warfarin dose: 5 mg Today at 1600 Bridge Therapy: None Next INR due in am Pharmacy anticoagulation service will continue to follow. DAIJA BARRIOS, [facility], 05/22/19 3040
[2019-05-22] MEDS ORDERED: WARFARIN 5 MG TABLET. PO ONE (16:00)
[2019-05-22 19:25] VITALS: BP 113/40
[2019-05-22 20:04] LABS: HEMATOCRIT 23.8 % (39.0-53.0); HEMOGLOBIN 7.6 g/dL (13.0-17.5); RED BLOOD COUNT 2.75 x10^6/uL (4.30-5.70); RED CELL DISTRIBUTION WIDTH 21.6 % (11.5-14.5); WHITE BLOOD COUNT 11.2 x10^3/uL (4.0-11.0)
[2019-05-22] MEDS: ATORVASTATIN CALCIUM 10 MG TABLET. PO SCH (20:07)
[2019-05-22] MEDS: traZODone 100 MG TABLET. PO SCH (20:07)
[2019-05-22] MEDS: INSULIN GLARGINE SYRINGE. SQ SCH (21:49)
[2019-05-22 23:25] VITALS: BP 122/49
[2019-05-23] MEDS: AMINO AC 3%/ELECTROLYTE/GLYCER 1,000 ML IV SCH ×2 (02:30→17:58)
[2019-05-23 03:25] VITALS: BP 151/59
[2019-05-23] MEDS: LEVOTHYROXINE 125 MCG TABLET PO SCH (04:12)
[2019-05-23 04:41] LABS: PROTHROMBIN TIME PATIENT 14.6 SEC (11.7-14.0)
[2019-05-23 05:06] LABS: GFR 20.3; POTASSIUM 4.7 mmol/L (3.5-5.1)
[2019-05-23 07:00] VITALS: BP 153/49
[2019-05-23] MEDS: PANTOPRAZOLE 40 MG TABLET.DR. PO SCH (07:30)
[2019-05-23] MEDS: INSULIN LISPRO 300 UNITS/3 ML VIAL. SQ SCH ×6 (08:00→17:00)
[2019-05-23] MEDS: POTASSIUM CHLORIDE 20 MEQ TABLET.ER. PO SCH (08:00)
[2019-05-23] MEDS: FERROUS SULFATE 325 MG TABLET. PO SCH (08:00)
[2019-05-23] MEDS: ASPIRIN ENTERIC COATED 81 MG TABLET.DR. PO SCH ×2 (08:00→09:44)
[2019-05-23] MEDS: LACTOBACILLUS RHAMNOSUS GG 1 CAPSULE. PO SCH ×2 (08:51→21:23)
[2019-05-23] MEDS: FEBUXOSTAT 40 MG TABLET PO SCH (08:55)
[2019-05-23] MEDS: SENNOSIDES/DOCUSATE 8.6/50MG TABLET. PO SCH ×2 (08:55→21:22)
[2019-05-23] MEDS: FLUTICASONE 50MCG/NASAL SPRAY 16GM BOTTLE. NS SCH (08:55)
[2019-05-23] MEDS: metOLazone 2.5 MG TABLET PO SCH (08:55)
[2019-05-23] MEDS: CYANOCOBALAMIN (VITAMIN B-12) 1,000 MCG TABLET. PO SCH (08:55)
[2019-05-23] MEDS: METOPROLOL SUCC 24HR ER 25 MG TAB.ER.24H. PO SCH (08:55)
[2019-05-23] MEDS: CHOLECALCIFEROL (VITAMIN D3) 5,000 UNIT CAPSULE PO SCH (08:55)
[2019-05-23] MEDS: CARBIDOPA/LEVODOPA CR 25/100MG TABLET.SA. PO SCH ×3 (08:56→21:23)
[2019-05-23] MEDS: busPIRone 5 MG TABLET. PO SCH ×2 (08:56→21:22)
[2019-05-23] MEDS: TORSEMIDE 20 MG TABLET. PO SCH ×2 (08:56→14:51)
[2019-05-23] MEDS: AMOXICILLIN/K CLAV 875/125MG TABLET. PO SCH (08:56)
[2019-05-23] MEDS: POLYETHYLENE GLYCOL 3350 17 GM PACKET. PO SCH ×2 (09:00→21:25)
--- NOTE | 2019-05-23 11:04 | PDOC ---
Infectious Disease Note Subjective Subjective more awake, talking some ROS ROS no n/v/d/sob Vital Sign Vital Signs Vital Signs Date Time Temp Pulse Resp B/P (MAP) Pulse Ox O2 Delivery O2 Flow Rate FiO2 05/23/19 08:57 70 153/49 05/23/19 07:00 98.2 20 94 98.2 05/23/19 03:25 Room Air Physical Exam PHYSICAL EXAM GENERAL: awake HEENT: OC/OP- clean NECK: Supple. HEART: S1, S2 with a 2/6 murmur. Pacemaker ABDOMEN: Soft, nontender. No guarding. GENITOURINARY: Garcia in place. EXTREMITIES: Bilateral lower extremity BKAs Mild RUE erythema and dryness SKIN: warm to touch NEUROLOGIC: Nonverbal RIJ clean Labs Lab Laboratory Tests Test 05/22/19 16:09 05/22/19 20:00 05/22/19 20:14 05/23/19 04:25 Glucose (Fingerstick) 135 mg/dL (70-99) 122 mg/dL (70-99) White Blood Count 11.2 x10^3/uL (4.0-11.0) Red Blood Count 2.75 x10^6/uL (4.30-5.70) Hemoglobin 7.6 g/dL (13.0-17.5) Hematocrit 23.8 % (39.0-53.0) Mean Corpuscular Volume 86 fL (79-100) Mean Corpuscular Hemoglobin 28 pg (25-35) Mean Corpuscular Hemoglobin Concent 32 g/dL (31-37) Red Cell Distribution Width 21.6 % (11.5-14.5) Platelet Count 175 x10^3/uL (140-400) Prothrombin Time 14.6 SEC (11.7-14.0) Prothromb Time International Ratio 1.2 (0.8-1.1) Sodium Level 134 mmol/L (136-145) Potassium Level 4.7 mmol/L (3.5-5.1) Chloride Level 98 mmol/L (98-107) Carbon Dioxide Level 26 mmol/L (21-32) Anion Gap 10 (6-14) Blood Urea Nitrogen 103 mg/dL (8-26) Creatinine 3.0 mg/dL (0.7-1.3) Estimated GFR (Cockcroft-Gault) 20.3 Glucose Level 157 mg/dL (70-99) Calcium Level 9.0 mg/dL (8.5-10.1) Test 05/23/19 08:27 Glucose (Fingerstick) 160 mg/dL (70-99) Micro Microbiology 05/16/19 Blood Culture - Preliminary, Resulted NO GROWTH AFTER 4 DAYS Objective Assessment Sepsis POA - fever/Hypotension/pneumonia/Encephalopathy/ABBY. Elevated Procalcitonin but ? reliability in renal failure RUE ? cellulitis Pneumonia ABBY on CKD Cephalexin allergy but has tolerated Zosyn/Meropenem in past Leukocytosis - better L max ? sinusitis Afib Cerebellar infarct - ? age Cardiomyopathy with pacemaker Plan Plan of Care po augmentin d/c to NH d/c cvline ZULMA NICHOLS MD May 23, 2019 11:04
--- NOTE | 2019-05-23 11:12 | PDOC ---
Renal-Progress Notes Subjective Notes Notes STILL SLEEPY History of Present Illness Hx of present illness NO NEW COMPLAINTS Vitals Vitals Vital Signs Date Time Temp Pulse Resp B/P (MAP) Pulse Ox O2 Delivery O2 Flow Rate FiO2 05/23/19 08:57 70 153/49 05/23/19 07:00 98.2 20 94 98.2 05/23/19 03:25 Room Air Weight Weight [ ] I.O. Intake and Output Intake and Output 05/23/19 07:00 Intake Total 0 ml Output Total 850 ml Balance -850 ml Intake Oral 0 ml Output Urine Total 850 ml # Bowel Movements 1 Labs Labs Laboratory Tests Test 05/22/19 16:09 05/22/19 20:00 05/22/19 20:14 05/23/19 04:25 Glucose (Fingerstick) 135 mg/dL (70-99) 122 mg/dL (70-99) White Blood Count 11.2 x10^3/uL (4.0-11.0) Red Blood Count 2.75 x10^6/uL (4.30-5.70) Hemoglobin 7.6 g/dL (13.0-17.5) Hematocrit 23.8 % (39.0-53.0) Mean Corpuscular Volume 86 fL (79-100) Mean Corpuscular Hemoglobin 28 pg (25-35) Mean Corpuscular Hemoglobin Concent 32 g/dL (31-37) Red Cell Distribution Width 21.6 % (11.5-14.5) Platelet Count 175 x10^3/uL (140-400) Prothrombin Time 14.6 SEC (11.7-14.0) Prothromb Time International Ratio 1.2 (0.8-1.1) Sodium Level 134 mmol/L (136-145) Potassium Level 4.7 mmol/L (3.5-5.1) Chloride Level 98 mmol/L (98-107) Carbon Dioxide Level 26 mmol/L (21-32) Anion Gap 10 (6-14) Blood Urea Nitrogen 103 mg/dL (8-26) Creatinine 3.0 mg/dL (0.7-1.3) Estimated GFR (Cockcroft-Gault) 20.3 Glucose Level 157 mg/dL (70-99) Calcium Level 9.0 mg/dL (8.5-10.1) Test 05/23/19 08:27 05/23/19 10:58 Glucose (Fingerstick) 160 mg/dL (70-99) 196 mg/dL (70-99) Micro Micro Microbiology 05/16/19 Blood Culture - Final, Complete NO GROWTH AFTER 5 DAYS Review of Systems Constitutional: yes: other (STABLE) Physical Exam General Appearance: no apparent distress Skin: dry Respiratory: decreased breath sounds Heart: S1S2 Abdomen: soft, bowel sounds present Genitourinary: bladder flat Extremities: pulses present, no edema Neurology: alert, confused Assessment Assessment IMP CKD STAGE 4-CR STABLE AT HIS BASELINE OF ABOUT 3.0 SEPSIS PNEUMONIA DEMENTIA POOR PO INTAKE WITH EMESIS THIS AM PLAN STOP HIS METOLAZONE FOR NOW-BECOMING PRERENAL CONT ANTIBIOTICS CONT TORSEMIDE WILL FOLLOW BETO TAYLOR MD May 23, 2019 11:12
[2019-05-23 11:13] VITALS: BP 152/41
--- NOTE | 2019-05-23 12:30 | PDOC ---
PROGRESS NOTES Assessment Problems Medical Problems: (1) Acute kidney injury superimposed on CKD Status: Acute (2) Acute on chronic combined systolic (congestive) and diastolic (congestive) heart failure Status: Acute (3) Acute respiratory failure Status: Acute (4) Acute respiratory failure with hypoxia Status: Acute (5) ABBY (acute kidney injury) Status: Acute (6) CAD (coronary artery disease) Status: Chronic (7) Chronic a-fib Status: Chronic (8) Chronic kidney disease, stage 4 (severe) Status: Acute (9) CKD (chronic kidney disease), stage III Status: Chronic (10) CVA (cerebral vascular accident) Status: Acute (11) DM2 (diabetes mellitus, type 2) Status: Chronic (12) Dyspnea Status: Acute (13) HCAP (healthcare-associated pneumonia) Status: Acute (14) Metabolic encephalopathy Status: Acute (15) Pleural effusion on left Status: Acute (16) Pleural effusion, left Status: Acute (17) Pulmonary edema Status: Acute (18) Sepsis Status: Acute (19) Severe sepsis Status: Acute Metabolic encephalopathy related to sepsis. Cerebellar infarct, As follow-up CT shows some evolution, this is a subacute infarct, still, not clinically relevant or cause of his encephalopathy Plan Hold on aspirin, is on warfarin for afib Did discuss with his niece, POA Discharge any time Subjective no complaints Objective Vital Signs Date Time Temp Pulse Resp B/P (MAP) Pulse Ox O2 Delivery O2 Flow Rate FiO2 05/23/19 11:13 98.8 70 20 152/41 (78) 92 98.8 05/23/19 03:25 Room Air Intake and Output 05/23/19 07:00 Intake Total 0 ml Output Total 850 ml Balance -850 ml Intake Oral 0 ml Output Urine Total 850 ml # Bowel Movements 1 PHYSICAL EXAM Alert. Oriented to "hospital" and person. PERRL. EOMI. CN: no focal findings. Muscle tone: normal. Muscle strength: 4/5 DTR: 2+ Plantar reflex: bilateral BKA's Gait: not examined in bed. Sensory exam: no abnormal findings. Automatisms of left arm, voluntary tremor which he can suppress Review of Relevant I have reviewed the following items nestor (where applicable) has been applied. Labs Laboratory Tests Test 05/21/19 16:23 05/21/19 20:30 05/22/19 06:15 05/22/19 07:11 Glucose (Fingerstick) 239 mg/dL (70-99) 204 mg/dL (70-99) 216 mg/dL (70-99) Prothrombin Time 15.2 SEC (11.7-14.0) Prothromb Time International Ratio 1.2 (0.8-1.1) Sodium Level 135 mmol/L (136-145) Potassium Level 4.0 mmol/L (3.5-5.1) Chloride Level 98 mmol/L (98-107) Carbon Dioxide Level 27 mmol/L (21-32) Anion Gap 10 (6-14) Blood Urea Nitrogen 98 mg/dL (8-26) Creatinine 3.0 mg/dL (0.7-1.3) Estimated GFR (Cockcroft-Gault) 20.3 Glucose Level 235 mg/dL (70-99) Calcium Level 8.7 mg/dL (8.5-10.1) Test 05/22/19 07:20 05/22/19 10:22 05/22/19 16:09 05/22/19 20:00 White Blood Count 9.9 x10^3/uL (4.0-11.0) 11.2 x10^3/uL (4.0-11.0) Red Blood Count 2.80 x10^6/uL (4.30-5.70) 2.75 x10^6/uL (4.30-5.70) Hemoglobin 7.8 g/dL (13.0-17.5) 7.6 g/dL (13.0-17.5) Hematocrit 24.3 % (39.0-53.0) 23.8 % (39.0-53.0) Mean Corpuscular Volume 87 fL (79-100) 86 fL (79-100) Mean Corpuscular Hemoglobin 28 pg (25-35) 28 pg (25-35) Mean Corpuscular Hemoglobin Concent 32 g/dL (31-37) 32 g/dL (31-37) Red Cell Distribution Width 22.4 % (11.5-14.5) 21.6 % (11.5-14.5) Platelet Count 180 x10^3/uL (140-400) 175 x10^3/uL (140-400) Glucose (Fingerstick) 267 mg/dL (70-99) 135 mg/dL (70-99) Test 05/22/19 20:14 05/23/19 04:25 05/23/19 08:27 05/23/19 10:58 Glucose (Fingerstick) 122 mg/dL (70-99) 160 mg/dL (70-99) 196 mg/dL (70-99) Prothrombin Time 14.6 SEC (11.7-14.0) Prothromb Time International Ratio 1.2 (0.8-1.1) Sodium Level 134 mmol/L (136-145) Potassium Level 4.7 mmol/L (3.5-5.1) Chloride Level 98 mmol/L (98-107) Carbon Dioxide Level 26 mmol/L (21-32) Anion Gap 10 (6-14) Blood Urea Nitrogen 103 mg/dL (8-26) Creatinine 3.0 mg/dL (0.7-1.3) Estimated GFR (Cockcroft-Gault) 20.3 Glucose Level 157 mg/dL (70-99) Calcium Level 9.0 mg/dL (8.5-10.1) Laboratory Tests Test 05/22/19 16:09 05/22/19 20:00 05/22/19 20:14 05/23/19 04:25 Glucose (Fingerstick) 135 mg/dL (70-99) 122 mg/dL (70-99) White Blood Count 11.2 x10^3/uL (4.0-11.0) Red Blood Count 2.75 x10^6/uL (4.30-5.70) Hemoglobin 7.6 g/dL (13.0-17.5) Hematocrit 23.8 % (39.0-53.0) Mean Corpuscular Volume 86 fL (79-100) Mean Corpuscular Hemoglobin 28 pg (25-35) Mean Corpuscular Hemoglobin Concent 32 g/dL (31-37) Red Cell Distribution Width 21.6 % (11.5-14.5) Platelet Count 175 x10^3/uL (140-400) Prothrombin Time 14.6 SEC (11.7-14.0) Prothromb Time International Ratio 1.2 (0.8-1.1) Sodium Level 134 mmol/L (136-145) Potassium Level 4.7 mmol/L (3.5-5.1) Chloride Level 98 mmol/L (98-107) Carbon Dioxide Level 26 mmol/L (21-32) Anion Gap 10 (6-14) Blood Urea Nitrogen 103 mg/dL (8-26) Creatinine 3.0 mg/dL (0.7-1.3) Estimated GFR (Cockcroft-Gault) 20.3 Glucose Level 157 mg/dL (70-99) Calcium Level 9.0 mg/dL (8.5-10.1) Test 05/23/19 08:27 05/23/19 10:58 Glucose (Fingerstick) 160 mg/dL (70-99) 196 mg/dL (70-99) Microbiology 05/16/19 Blood Culture - Final, Complete NO GROWTH AFTER 5 DAYS Medications Current Medications Vancomycin HCl (Vanco Per Pharmacy) 1 each PRN DAILY PRN MC SEE COMMENTS Last administered on 05/16/19at 02:12; Start 05/15/19 at 23:00; Stop 05/17/19 at 06:52; Status DC Levofloxacin/ Dextrose 150 ml @ 100 mls/hr 1X ONCE IV Last administered on 05/16/19at 00:17; Start 05/15/19 at 23:30; Stop 05/16/19 at 00:59; Status DC Sodium Chloride 1,000 ml @ 1,000 mls/hr 1X ONCE IV ; Start 05/15/19 at 23:30; Stop 05/16/19 at 00:29; Status DC Sodium Chloride 1,000 ml @ 1,000 mls/hr 1X ONCE IV Last administered on 05/16/19at 00:17; Start 05/15/19 at 23:30; Stop 05/16/19 at 00:29; Status DC Sodium Chloride 1,000 ml @ 1,000 mls/hr 1X ONCE IV Last administered on 05/16/19at 00:17; Start 05/15/19 at 23:30; Stop 05/16/19 at 00:29; Status DC Vancomycin HCl 2 gm/Sodium Chloride 500 ml @ 250 mls/hr 1X ONCE IV Last administered on 05/16/19at 00:15; Start 05/16/19 at 00:00; Stop 05/16/19 at 01:59; Status DC Ondansetron HCl (Zofran) 4 mg PRN Q8HRS PRN IV NAUSEA/VOMITING 1ST CHOICE; Start 05/16/19 at 01:45; Stop 05/17/19 at 01:44; Status DC Vancomycin HCl 1.25 gm/Sodium Chloride 250 ml @ 167 mls/hr Q48H IV ; Start 05/18/19 at 00:00; Stop 05/17/19 at 06:52; Status DC Vancomycin HCl (Vancomycin Trough Level) 1 each 1X ONCE MC ; Start 05/19/19 at 23:30; Stop 05/17/19 at 07:19; Status DC Albumin Human 100 ml @ 100 mls/hr 1X ONCE IV Last administered on 05/16/19at 04:14; Start 05/16/19 at 04:30; Stop 05/16/19 at 05:29; Status DC Norepinephrine Bitartrate 250 ml @ 17.031 mls/ hr CONT PRN IV SEE I/O RECORD Last administered on 05/16/19at 04:21; Start 05/16/19 at 04:00; Stop 05/19/19 at 08:36; Status DC Info (FLU VACCINE SCREEN per RX) 1 each 1X ONCE MC ; Start 05/16/19 at 05:00; Stop 05/16/19 at 05:01; Status UNV Albumin Human 250 ml @ 125 mls/hr 1X ONCE IV Last administered on 05/16/19at 05:11; Start 05/16/19 at 05:30; Stop 05/16/19 at 07:29; Status DC Piperacillin Sod/ Tazobactam Sod 2.25 gm/Sodium Chloride 50 ml @ 100 mls/hr Q6HRS IV Last administered on 05/22/19at 06:02; Start 05/16/19 at 13:00; Stop 05/22/19 at 11:04; Status DC Linezolid/Dextrose 300 ml @ 300 mls/hr Q12HR IV Last administered on 05/22/19at 09:01; Start 05/17/19 at 09:00; Stop 05/22/19 at 11:04; Status DC Furosemide (Lasix) 40 mg 1X ONCE IVP Last administered on 05/17/19at 15:47; Start 05/17/19 at 15:45; Stop 05/17/19 at 15:46; Status DC Amino Acids/ Glycerin/ Electrolytes 1,000 ml @ 80 mls/hr [id number] IV Last administered on 05/23/19 04:12; Start 05/18/19 at 10:00 Aspirin (Ecotrin) 81 mg DAILYWBKFT PO Last administered on 05/23/19 09:44; Start 05/18/19 at 12:45 Furosemide (Lasix) 40 mg 1X ONCE IVP Last administered on 05/18/19at 15:39; Start 05/18/19 at 15:00; Stop 05/18/19 at 15:01; Status DC Metoprolol Succinate (Toprol Xl) 25 mg DAILY PO Last administered on 05/23/19 08:57; Start 05/18/19 at 15:00 Insulin Glargine (Lantus Syringe) 12 unit QHS SQ Last administered on 05/20/19at 23:37; Start 05/18/19 at 21:00; Stop 05/21/19 at 09:11; Status DC Insulin Human Lispro (HumaLOG) 0-5 UNITS TIDWMEALS SQ Last administered on 05/20/19at 17:22; Start 05/18/19 at 17:00; Stop 05/21/19 at 09:11; Status DC Dextrose (Dextrose 50%-Water Syringe) 12.5 gm PRN Q15MIN PRN IV SEE COMMENTS; Start 05/18/19 at 17:00; Stop 05/21/19 at 09:12; Status DC Dextrose 250 ml PRN Q15MIN PRN IV SEE COMMENTS; Start 05/18/19 at 17:00; Stop 05/21/19 at 09:12; Status DC Insulin Human Lispro (HumaLOG) 6 units TIDWMEALS SQ Last administered on 05/23/19at 11:34; Start 05/18/19 at 17:00 Buspirone HCl (Buspar) 5 mg BID PO Last administered on 05/23/19 08:57; Start 05/19/19 at 10:00 Carbidopa/Levodopa (Sinemet Cr) 1 tab.sa TID PO Last administered on 05/23/19 08:57; Start 05/19/19 at 09:00 Levothyroxine Sodium (Synthroid) 125 mcg DAILY06 PO Last administered on 05/22/19 06:02; Start 05/19/19 at 10:30 Polyethylene Glycol (miraLAX PACKET) 17 gm BID PO Last administered on 05/21/19at 08:39; Start 05/19/19 at 09:00 Sevelamer Carbonate (Renvela) 2,400 mg TIDAC PO Last administered on 05/20/19at 09:37; Start 05/19/19 at 11:30; Stop 05/20/19 at 14:10; Status DC Lactobacillus Rhamnosus (Culturelle) 1 cap BID PO Last administered on 05/22/19at 08:34; Start 05/20/19 at 21:00 Insulin Glargine (Lantus Syringe) 15 unit QHS SQ Last administered on 05/22/19at 21:49; Start 05/21/19 at 21:00 Insulin Human Lispro (HumaLOG) 0-9 UNITS TIDWMEALS SQ Last administered on 05/23/19at 11:34; Start 05/21/19 at 09:30 Dextrose (Dextrose 50%-Water Syringe) 12.5 gm PRN Q15MIN PRN IV SEE COMMENTS; Start 05/21/19 at 09:15 Dextrose 250 ml PRN Q15MIN PRN IV SEE COMMENTS; Start 05/21/19 at 09:15 Acetaminophen (Tylenol) 650 mg PRN Q6HRS PRN PO MILD PAIN 1-3; Start 05/21/19 at 09:15 Aspirin (Ecotrin) 81 mg DAILY PO ; Start 05/22/19 at 09:00; Status UNV Bisacodyl (Dulcolax Supp) 10 mg PRN DAILY PRN RC CONSTIPATION; Start 05/21/19 at 09:15 Cyanocobalamin (Vitamin B-12) 1,000 mcg DAILY PO Last administered on 05/23/19at 08:57; Start 05/21/19 at 10:00 Glucose (Insta-Glucose) 15 gm PRN DAILY PRN PO Hypoglycemia; Start 05/21/19 at 09:15 Metolazone (Zaroxolyn) 2.5 mg PRN DAILY PRN PO Weight gain/Fluid gain; Start 05/21/19 at 09:15 Metoprolol Succinate (Toprol Xl) 25 mg DAILY PO ; Start 05/22/19 at 09:00; Status UNV Sodium Monofluorophosphate (Fleet Adult) 133 ml PRN DAILY PRN RC CONSTIPATION; Start 05/21/19 at 09:15 Pantoprazole Sodium (Protonix) 40 mg DAILYAC PO Last administered on 05/22/19 08:31; Start 05/21/19 at 10:00 Potassium Chloride (Klor-Con) 20 meq PRN DAILY PRN PO IF PRN METOLAZONE GIVEN; Start 05/21/19 at 09:15 Senna/Docusate Sodium (Senna Plus) 1 tab BID PO Last administered on 05/23/19 08:57; Start 05/21/19 at 10:00 Simethicone (Gas-X) 80 mg PRN Q6HRS PRN PO HEARTBURN / GAS; Start 05/21/19 at 09:15 Torsemide (Demadex) 100 mg BID92 PO Last administered on 05/23/19 08:57; Start 05/21/19 at 10:00 Trazodone HCl (Desyrel) 100 mg QHS PO Last administered on 05/21/19at 21:08; Start 05/21/19 at 21:00 Warfarin Sodium (Coumadin) 2 mg DAILY16 PO ; Start 05/21/19 at 16:00; Stop 05/22/19 at 15:45; Status DC Febuxostat (Uloric) 80 mg DAILY PO Last administered on 05/23/19 08:57; Start 05/21/19 at 10:00 Ferrous Sulfate (Feosol) 325 mg DAILYWBKFT PO Last administered on 05/22/19 08:32; Start 05/21/19 at 10:00 Fluticasone Propionate (Flonase) 2 spray DAILY NS Last administered on 05/23/19 08:57; Start 05/21/19 at 10:00 Lactobacillus Rhamnosus (Culturelle) 1 cap DAILY PO ; Start 05/22/19 at 09:00; Status UNV Non-Formulary Medication (Melatonin ) 2 tab QHS PO ; Start 05/21/19 at 21:00; Status UNV Metolazone (Zaroxolyn) 7.5 mg DAILY PO Last administered on 05/23/19 08:57; Start 05/21/19 at 10:00; Stop 05/23/19 at 11:13; Status DC Potassium Chloride (Klor-Con) 40 meq DAILYWBKFT PO Last administered on 9/24/19at 08:31; Start 05/21/19 at 10:00 Atorvastatin Calcium (Lipitor) 5 mg QHS PO ; Start 05/21/19 at 21:00 Vitamin D (Vitamin D3) 5,000 unit DAILY PO Last administered on 05/23/19at 08:57 ; Start 05/21/19 at 10:00 Warfarin Sodium (Coumadin Per Pharmacy) 1 each PRN DAILY PRN MC SEE COMMENTS Last administered on 05/22/19at 15:41; Start 05/21/19 at 09:15 Ondansetron HCl (Zofran) 4 mg PRN Q6HRS PRN IV NAUSEA/VOMITING Last administered on 05/22/19at 23:05; Start 05/21/19 at 11:00 Amoxicillin/ Clavulanate Potassium (Augmentin 875/ 125mg) 1 tab DAILY PO Last administered on 05/23/19at 08:57; Start 05/23/19 at 09:00 Warfarin Sodium (Coumadin) 5 mg 1X WARF ONCE PO ; Start 05/22/19 at 16:00; Stop 05/22/19 at 16:01; Status DC Active Scripts Active Novolog Flexpen (Insulin Aspart) 300 Units/3 Ml Insuln.pen 8 Units SQ TIDWMEALS Reported Trazodone Hcl 100 Mg Tablet 1 Tab PO QHS Tramadol Hcl 50 Mg Tablet 50 Mg PO Q8HRS Torsemide 20 Mg Tablet 100 Mg PO BID Temazepam 15 Mg Capsule 1 Cap PO QHS Sinemet Cr 25-100 Tablet (Carbidopa/Levodopa) 1 Each Tablet.er 1 Tab PO TID Simethicone 80 Mg Tab.chew 80 Mg PO PRN Q6HRS PRN Senna Plus 8.6-50 mg Tablet (Sennosides/Docusate Sodium) 1 Each Tablet 1 Each PO BID Renvela (Sevelamer Carbonate) 800 Mg Tablet 3 Tab PO TIDAC Protonix (Pantoprazole Sodium) 40 Mg Tablet.dr 40 Mg PO DAILYAC Pravastatin Sodium 20 Mg Tablet 1 Tab PO HS Potassium Chloride 20 Meq Tablet.er 2 Tab PO DAILY Klor-Con M20 (Potassium Chloride) 20 Meq Tab.er.prt 1 Tab PO PRN DAILY PRN Novolog (Insulin Aspart) 100 Unit/1 Ml Cartridge 8 Unit SQ TIDBFRMEAL NITROGLYCERIN SubLingual (Nitroglycerin) 0.4 Mg Tab.subl 1 Tab SL UD PRN Miralax (Polyethylene Glycol 3350) 17 Gm Powd.pack 1 Packet PO BID Metoprolol Succinate ( Xl ) (Metoprolol Succinate) 25 Mg Tab.er.24h 1 Tab PO DAILY Metolazone 5 Mg Tablet 1.5 Tab PO DAILY Metolazone 2.5 Mg Tablet 2.5 Mg PO PRN DAILY PRN Melatonin 3 Mg Tablet 2 Tab PO QHS Levothyroxine Sodium 125 Mcg Tablet 1 Tab PO DAILY Lantus Solostar (Insulin Glargine,Hum.rec.anlog) 100 Unit/1 Ml Insuln.pen 12 Unit SQ QHS Acidophilus (Lactobacillus Acidophilus) 1 Each Capsule 1 Each PO DAILY Glucose Gel (Dextrose) 38 Gm Gel..gram. 38 Gm PO PRN PRN Gabapentin (Gabapentin) 100 Mg Capsule 100 Mg PO TID Flonase Allergy Relief (Fluticasone Propionate) 9.9 Ml [place].susp 2 Sprays NS DAILY Fleet Enema (Na Phos,M-B/Na Phos,Di-Ba) 133 Ml Enema 133 Ml RC PRN PRN Ferrous Gluconate 240 Mg Tablet 240 Mg PO DAILY Uloric (Febuxostat) 80 Mg Tablet 1 Tab PO DAILY Cymbalta (Duloxetine Hcl) 60 Mg Capsule. 1 Cap PO HS Cymbalta (Duloxetine Hcl) 30 Mg Capsule.dr 1 Cap PO DAILY Vitamin B-12 (Cyanocobalamin (Vitamin B-12)) 1,000 Mcg Tablet 1 Tab PO DAILY Coumadin (Warfarin Sodium) 2 Mg Tablet 1 Tab PO DAILY Vitamin D3 (Cholecalciferol (Vitamin D3)) 5,000 Unit Tablet 1 Tab PO DAILY Buspirone Hcl 5 Mg Tablet 1 Tab PO BID Bisacodyl 10 Mg Supp.rect 10 Mg RC PRN DAILY PRN Tylenol (Acetaminophen) 325 Mg Tablet 2 Tab PO PRN Q6HRS PRN Sertraline Hcl 100 Mg Tablet 100 Mg PO DAILY Aspir 81 (Aspirin) 81 Mg Tablet.dr 1 Tab PO DAILY Vitals/I & O Vital Sign - Last 24 Hours 05/22/19 05/22/19 05/22/19 05/22/19 15:00 19:25 20:00 23:25 Temp 98.4 98.4 99.0 98.4 98.4 99.0 Pulse 68 69 69 Resp 19 20 18 B/P (MAP) 121/54 (76) 113/40 (64) 122/49 (73) Pulse Ox 96 97 95 O2 Delivery Room Air Room Air Room Air Room Air 05/23/19 05/23/19 05/23/19 05/23/19 03:25 07:00 08:57 11:13 Temp 99.1 98.2 98.8 99.1 98.2 98.8 Pulse 69 70 70 70 Resp 18 20 20 B/P (MAP) 151/59 (89) 153/49 (83) 153/49 152/41 (78) Pulse Ox 94 94 92 O2 Delivery Room Air Intake and Output 05/22/19 05/22/19 05/23/19 15:00 23:00 07:00 Intake Total 0 ml Output Total 550 ml 300 ml Balance -550 ml -300 ml STEPHANIE DUKE MD May 23, 2019 12:30
[2019-05-23 15:23] VITALS: BP 149/45
[2019-05-23] MEDS ORDERED: WARFARIN 5 MG TABLET. PO ONE (17:00)
--- NOTE | 2019-05-23 17:58 | PDOC ---
PROGRESS NOTES Chief Complaint Chief Complaint Severe sepsis diarrhea HCAP SNU resident Metabolic encephalopathy, seems better Hx CVA Weakness and debility Pleural effusion CHF, stable Obesity, BMI 35 RUE ? cellulitis ABBY on CKD - likely this is vasomotor nephropathy due to poor PO intake Afib Cerebellar infarct - on CT scan, ? age Cardiomyopathy with pacemaker Severe protein calorie malnutrition\ dysphagia -on dysphagia 1 diet History of Present Illness History of Present Illness emesis still SNU resident needs t be fed in SNU HE is bilateral BKA - so wheelchair bound HE is DNR< active med treatment' he is on warf for maybe bed bound issues, bilateral BKA PLAN: adjust insulin today SSI high dose SHIFT pls IV zyvox, zosyn per ID--switched to augmentin per ID DNR WArf per pharmacy goal 2-3 held off sedating meds for now like gabapentin, trazadone, cymbalta etc COnt dysphagia 1 diet dc back to SNF soon Vitals Vitals Vital Signs Date Time Temp Pulse Resp B/P (MAP) Pulse Ox O2 Delivery O2 Flow Rate FiO2 05/23/19 15:23 97.8 70 18 149/45 (79) 94 97.8 05/23/19 03:25 Room Air Physical Exam Physical Exam GENERAL: awake HEENT: OC/OP- clean NECK: Supple. HEART: S1, S2 with a 2/6 murmur. Pacemaker ABDOMEN: Soft, nontender. No guarding. GENITOURINARY: Garcia in place. EXTREMITIES: Bilateral lower extremity BKAs Mild RUE erythema and dryness SKIN: warm to touch NEUROLOGIC: Nonverbal RIJ clean General: Alert, Cooperative, No acute distress, Other (oriented to person only) Heart: Regular rate, Normal S1, Normal S2, Other (3/6 systolic murmur ) Lungs: Other (decrease left base) Abdomen: Normal bowel sounds, Soft Extremities: No clubbing, Other (bilateral BKA, trace edema ) Skin: No rashes Labs LABS Laboratory Tests Test 05/22/19 20:00 05/22/19 20:14 05/23/19 04:25 05/23/19 08:27 White Blood Count 11.2 x10^3/uL (4.0-11.0) Red Blood Count 2.75 x10^6/uL (4.30-5.70) Hemoglobin 7.6 g/dL (13.0-17.5) Hematocrit 23.8 % (39.0-53.0) Mean Corpuscular Volume 86 fL (79-100) Mean Corpuscular Hemoglobin 28 pg (25-35) Mean Corpuscular Hemoglobin Concent 32 g/dL (31-37) Red Cell Distribution Width 21.6 % (11.5-14.5) Platelet Count 175 x10^3/uL (140-400) Glucose (Fingerstick) 122 mg/dL (70-99) 160 mg/dL (70-99) Prothrombin Time 14.6 SEC (11.7-14.0) Prothromb Time International Ratio 1.2 (0.8-1.1) Sodium Level 134 mmol/L (136-145) Potassium Level 4.7 mmol/L (3.5-5.1) Chloride Level 98 mmol/L (98-107) Carbon Dioxide Level 26 mmol/L (21-32) Anion Gap 10 (6-14) Blood Urea Nitrogen 103 mg/dL (8-26) Creatinine 3.0 mg/dL (0.7-1.3) Estimated GFR (Cockcroft-Gault) 20.3 Glucose Level 157 mg/dL (70-99) Calcium Level 9.0 mg/dL (8.5-10.1) Test 05/23/19 10:58 05/23/19 17:08 Glucose (Fingerstick) 196 mg/dL (70-99) 125 mg/dL (70-99) Assessment and Plan Assessmemt and Plan Problems Medical Problems: (1) Acute kidney injury superimposed on CKD Status: Acute (2) Acute on chronic combined systolic (congestive) and diastolic (congestive) heart failure Status: Acute (3) Acute respiratory failure Status: Acute (4) Acute respiratory failure with hypoxia Status: Acute (5) ABBY (acute kidney injury) Status: Acute (6) CAD (coronary artery disease) Status: Chronic (7) Chronic a-fib Status: Chronic (8) Chronic kidney disease, stage 4 (severe) Status: Acute (9) CKD (chronic kidney disease), stage III Status: Chronic (10) CVA (cerebral vascular accident) Status: Acute (11) DM2 (diabetes mellitus, type 2) Status: Chronic (12) Dyspnea Status: Acute (13) HCAP (healthcare-associated pneumonia) Status: Acute (14) Metabolic encephalopathy Status: Acute (15) Pleural effusion on left Status: Acute (16) Pleural effusion, left Status: Acute (17) Pulmonary edema Status: Acute (18) Sepsis Status: Acute (19) Severe sepsis Status: Acute Comment Review of Relevant I have reviewed the following items nestor (where applicable) has been applied. Labs Laboratory Tests Test 05/21/19 20:30 05/22/19 06:15 05/22/19 07:11 05/22/19 07:20 Glucose (Fingerstick) 204 mg/dL (70-99) 216 mg/dL (70-99) Prothrombin Time 15.2 SEC (11.7-14.0) Prothromb Time International Ratio 1.2 (0.8-1.1) Sodium Level 135 mmol/L (136-145) Potassium Level 4.0 mmol/L (3.5-5.1) Chloride Level 98 mmol/L (98-107) Carbon Dioxide Level 27 mmol/L (21-32) Anion Gap 10 (6-14) Blood Urea Nitrogen 98 mg/dL (8-26) Creatinine 3.0 mg/dL (0.7-1.3) Estimated GFR (Cockcroft-Gault) 20.3 Glucose Level 235 mg/dL (70-99) Calcium Level 8.7 mg/dL (8.5-10.1) White Blood Count 9.9 x10^3/uL (4.0-11.0) Red Blood Count 2.80 x10^6/uL (4.30-5.70) Hemoglobin 7.8 g/dL (13.0-17.5) Hematocrit 24.3 % (39.0-53.0) Mean Corpuscular Volume 87 fL (79-100) Mean Corpuscular Hemoglobin 28 pg (25-35) Mean Corpuscular Hemoglobin Concent 32 g/dL (31-37) Red Cell Distribution Width 22.4 % (11.5-14.5) Platelet Count 180 x10^3/uL (140-400) Test 05/22/19 10:22 05/22/19 16:09 05/22/19 20:00 05/22/19 20:14 Glucose (Fingerstick) 267 mg/dL (70-99) 135 mg/dL (70-99) 122 mg/dL (70-99) White Blood Count 11.2 x10^3/uL (4.0-11.0) Red Blood Count 2.75 x10^6/uL (4.30-5.70) Hemoglobin 7.6 g/dL (13.0-17.5) Hematocrit 23.8 % (39.0-53.0) Mean Corpuscular Volume 86 fL (79-100) Mean Corpuscular Hemoglobin 28 pg (25-35) Mean Corpuscular Hemoglobin Concent 32 g/dL (31-37) Red Cell Distribution Width 21.6 % (11.5-14.5) Platelet Count 175 x10^3/uL (140-400) Test 05/23/19 04:25 05/23/19 08:27 05/23/19 10:58 05/23/19 17:08 Prothrombin Time 14.6 SEC (11.7-14.0) Prothromb Time International Ratio 1.2 (0.8-1.1) Sodium Level 134 mmol/L (136-145) Potassium Level 4.7 mmol/L (3.5-5.1) Chloride Level 98 mmol/L (98-107) Carbon Dioxide Level 26 mmol/L (21-32) Anion Gap 10 (6-14) Blood Urea Nitrogen 103 mg/dL (8-26) Creatinine 3.0 mg/dL (0.7-1.3) Estimated GFR (Cockcroft-Gault) 20.3 Glucose Level 157 mg/dL (70-99) Calcium Level 9.0 mg/dL (8.5-10.1) Glucose (Fingerstick) 160 mg/dL (70-99) 196 mg/dL (70-99) 125 mg/dL (70-99) Laboratory Tests Test 05/22/19 20:00 05/22/19 20:14 05/23/19 04:25 05/23/19 08:27 White Blood Count 11.2 x10^3/uL (4.0-11.0) Red Blood Count 2.75 x10^6/uL (4.30-5.70) Hemoglobin 7.6 g/dL (13.0-17.5) Hematocrit 23.8 % (39.0-53.0) Mean Corpuscular Volume 86 fL (79-100) Mean Corpuscular Hemoglobin 28 pg (25-35) Mean Corpuscular Hemoglobin Concent 32 g/dL (31-37) Red Cell Distribution Width 21.6 % (11.5-14.5) Platelet Count 175 x10^3/uL (140-400) Glucose (Fingerstick) 122 mg/dL (70-99) 160 mg/dL (70-99) Prothrombin Time 14.6 SEC (11.7-14.0) Prothromb Time International Ratio 1.2 (0.8-1.1) Sodium Level 134 mmol/L (136-145) Potassium Level 4.7 mmol/L (3.5-5.1) Chloride Level 98 mmol/L (98-107) Carbon Dioxide Level 26 mmol/L (21-32) Anion Gap 10 (6-14) Blood Urea Nitrogen 103 mg/dL (8-26) Creatinine 3.0 mg/dL (0.7-1.3) Estimated GFR (Cockcroft-Gault) 20.3 Glucose Level 157 mg/dL (70-99) Calcium Level 9.0 mg/dL (8.5-10.1) Test 05/23/19 10:58 05/23/19 17:08 Glucose (Fingerstick) 196 mg/dL (70-99) 125 mg/dL (70-99) Microbiology 05/16/19 Blood Culture - Final, Complete NO GROWTH AFTER 5 DAYS Medications Current Medications Vancomycin HCl (Vanco Per Pharmacy) 1 each PRN DAILY PRN MC SEE COMMENTS Last administered on 05/16/19at 02:12; Start 05/15/19 at 23:00; Stop 05/17/19 at 06:52; Status DC Levofloxacin/ Dextrose 150 ml @ 100 mls/hr 1X ONCE IV Last administered on 05/16/19at 00:17; Start 05/15/19 at 23:30; Stop 05/16/19 at 00:59; Status DC Sodium Chloride 1,000 ml @ 1,000 mls/hr 1X ONCE IV ; Start 05/15/19 at 23:30; Stop 05/16/19 at 00:29; Status DC Sodium Chloride 1,000 ml @ 1,000 mls/hr 1X ONCE IV Last administered on 05/16/19at 00:17; Start 05/15/19 at 23:30; Stop 05/16/19 at 00:29; Status DC Sodium Chloride 1,000 ml @ 1,000 mls/hr 1X ONCE IV Last administered on 05/16/19at 00:17; Start 05/15/19 at 23:30; Stop 05/16/19 at 00:29; Status DC Vancomycin HCl 2 gm/Sodium Chloride 500 ml @ 250 mls/hr 1X ONCE IV Last administered on 05/16/19at 00:15; Start 05/16/19 at 00:00; Stop 05/16/19 at 01:59; Status DC Ondansetron HCl (Zofran) 4 mg PRN Q8HRS PRN IV NAUSEA/VOMITING 1ST CHOICE; Start 05/16/19 at 01:45; Stop 05/17/19 at 01:44; Status DC Vancomycin HCl 1.25 gm/Sodium Chloride 250 ml @ 167 mls/hr Q48H IV ; Start 05/18/19 at 00:00; Stop 05/17/19 at 06:52; Status DC Vancomycin HCl (Vancomycin Trough Level) 1 each 1X ONCE MC ; Start 05/19/19 at 23:30; Stop 05/17/19 at 07:19; Status DC Albumin Human 100 ml @ 100 mls/hr 1X ONCE IV Last administered on 05/16/19at 04:14; Start 05/16/19 at 04:30; Stop 05/16/19 at 05:29; Status DC Norepinephrine Bitartrate 250 ml @ 17.031 mls/ hr CONT PRN IV SEE I/O RECORD Last administered on 05/16/19at 04:21; Start 05/16/19 at 04:00; Stop 05/19/19 at 08:36; Status DC Info (FLU VACCINE SCREEN per RX) 1 each 1X ONCE MC ; Start 05/16/19 at 05:00; Stop 05/16/19 at 05:01; Status UNV Albumin Human 250 ml @ 125 mls/hr 1X ONCE IV Last administered on 05/16/19at 05:11; Start 05/16/19 at 05:30; Stop 05/16/19 at 07:29; Status DC Piperacillin Sod/ Tazobactam Sod 2.25 gm/Sodium Chloride 50 ml @ 100 mls/hr Q6HRS IV Last administered on 05/22/19at 06:02; Start 05/16/19 at 13:00; Stop 05/22/19 at 11:04; Status DC Linezolid/Dextrose 300 ml @ 300 mls/hr Q12HR IV Last administered on 05/22/19at 09:01; Start 05/17/19 at 09:00; Stop 05/22/19 at 11:04; Status DC Furosemide (Lasix) 40 mg 1X ONCE IVP Last administered on 05/17/19at 15:47; Start 05/17/19 at 15:45; Stop 05/17/19 at 15:46; Status DC Amino Acids/ Glycerin/ Electrolytes 1,000 ml @ 80 mls/hr [id number] IV Last administered on 05/23/19at 04:12; Start 05/18/19 at 10:00 Aspirin (Ecotrin) 81 mg DAILYWBKFT PO Last administered on 05/23/19at 09:44; Start 05/18/19 at 12:45 Furosemide (Lasix) 40 mg 1X ONCE IVP Last administered on 05/18/19at 15:39; Start 05/18/19 at 15:00; Stop 05/18/19 at 15:01; Status DC Metoprolol Succinate (Toprol Xl) 25 mg DAILY PO Last administered on 05/23/19 08:57; Start 05/18/19 at 15:00 Insulin Glargine (Lantus Syringe) 12 unit QHS SQ Last administered on 05/20/19at 23:37; Start 05/18/19 at 21:00; Stop 05/21/19 at 09:11; Status DC Insulin Human Lispro (HumaLOG) 0-5 UNITS TIDWMEALS SQ Last administered on 05/20/19at 17:22; Start 05/18/19 at 17:00; Stop 05/21/19 at 09:11; Status DC Dextrose (Dextrose 50%-Water Syringe) 12.5 gm PRN Q15MIN PRN IV SEE COMMENTS; Start 05/18/19 at 17:00; Stop 05/21/19 at 09:12; Status DC Dextrose 250 ml PRN Q15MIN PRN IV SEE COMMENTS; Start 05/18/19 at 17:00; Stop 05/21/19 at 09:12; Status DC Insulin Human Lispro (HumaLOG) 6 units TIDWMEALS SQ Last administered on 05/23/19 11:34; Start 05/18/19 at 17:00 Buspirone HCl (Buspar) 5 mg BID PO Last administered on 05/23/19 08:57; Start 05/19/19 at 10:00 Carbidopa/Levodopa (Sinemet Cr) 1 tab.sa TID PO Last administered on 05/23/19 14:51; Start 05/19/19 at 09:00 Levothyroxine Sodium (Synthroid) 125 mcg DAILY06 PO Last administered on 05/22/19 06:02; Start 05/19/19 at 10:30 Polyethylene Glycol (miraLAX PACKET) 17 gm BID PO Last administered on 05/21/19 08:39; Start 05/19/19 at 09:00 Sevelamer Carbonate (Renvela) 2,400 mg TIDAC PO Last administered on 05/20/19 09:37; Start 05/19/19 at 11:30; Stop 05/20/19 at 14:10; Status DC Lactobacillus Rhamnosus (Culturelle) 1 cap BID PO Last administered on 05/22/19 08:34; Start 05/20/19 at 21:00 Insulin Glargine (Lantus Syringe) 15 unit QHS SQ Last administered on 05/22/19 21:49; Start 05/21/19 at 21:00 Insulin Human Lispro (HumaLOG) 0-9 UNITS TIDWMEALS SQ Last administered on 05/23/19 11:34; Start 05/21/19 at 09:30 Dextrose (Dextrose 50%-Water Syringe) 12.5 gm PRN Q15MIN PRN IV SEE COMMENTS; Start 05/21/19 at 09:15 Dextrose 250 ml PRN Q15MIN PRN IV SEE COMMENTS; Start 05/21/19 at 09:15 Acetaminophen (Tylenol) 650 mg PRN Q6HRS PRN PO MILD PAIN 1-3; Start 05/21/19 at 09:15 Aspirin (Ecotrin) 81 mg DAILY PO ; Start 05/22/19 at 09:00; Status UNV Bisacodyl (Dulcolax Supp) 10 mg PRN DAILY PRN RC CONSTIPATION; Start 05/21/19 at 09:15 Cyanocobalamin (Vitamin B-12) 1,000 mcg DAILY PO Last administered on 05/23/19 08:57; Start 05/21/19 at 10:00 Glucose (Insta-Glucose) 15 gm PRN DAILY PRN PO Hypoglycemia; Start 05/21/19 at 09:15 Metolazone (Zaroxolyn) 2.5 mg PRN DAILY PRN PO Weight gain/Fluid gain; Start 05/21/19 at 09:15 Metoprolol Succinate (Toprol Xl) 25 mg DAILY PO ; Start 05/22/19 at 09:00; Status UNV Sodium Monofluorophosphate (Fleet Adult) 133 ml PRN DAILY PRN RC CONSTIPATION; Start 05/21/19 at 09:15 Pantoprazole Sodium (Protonix) 40 mg DAILYAC PO Last administered on 05/22/19at 08:31; Start 05/21/19 at 10:00 Potassium Chloride (Klor-Con) 20 meq PRN DAILY PRN PO IF PRN METOLAZONE GIVEN; Start 05/21/19 at 09:15 Senna/Docusate Sodium (Senna Plus) 1 tab BID PO Last administered on 05/23/19 08:57; Start 05/21/19 at 10:00 Simethicone (Gas-X) 80 mg PRN Q6HRS PRN PO HEARTBURN / GAS; Start 05/21/19 at 09:15 Torsemide (Demadex) 100 mg BID92 PO Last administered on 05/23/19at 14:51; Start 05/21/19 at 10:00 Trazodone HCl (Desyrel) 100 mg QHS PO Last administered on 05/21/19at 21:08; Start 05/21/19 at 21:00 Warfarin Sodium (Coumadin) 2 mg DAILY16 PO ; Start 05/21/19 at 16:00; Stop 05/22/19 at 15:45; Status DC Febuxostat (Uloric) 80 mg DAILY PO Last administered on 05/23/19 08:57; Start 05/21/19 at 10:00 Ferrous Sulfate (Feosol) 325 mg DAILYWBKFT PO Last administered on 05/22/19at 08:32; Start 05/21/19 at 10:00 Fluticasone Propionate (Flonase) 2 spray DAILY NS Last administered on 05/23/19 08:57; Start 05/21/19 at 10:00 Lactobacillus Rhamnosus (Culturelle) 1 cap DAILY PO ; Start 05/22/19 at 09:00; Status UNV Non-Formulary Medication (Melatonin ) 2 tab QHS PO ; Start 05/21/19 at 21:00; Status UNV Metolazone (Zaroxolyn) 7.5 mg DAILY PO Last administered on 05/23/19 08:57; Start 05/21/19 at 10:00; Stop 05/23/19 at 11:13; Status DC Potassium Chloride (Klor-Con) 40 meq DAILYWBKFT PO Last administered on 05/22/19at 08:31; Start 05/21/19 at 10:00 Atorvastatin Calcium (Lipitor) 5 mg QHS PO ; Start 05/21/19 at 21:00 Vitamin D (Vitamin D3) 5,000 unit DAILY PO Last administered on 05/23/19at 08:57; Start 05/21/19 at 10:00 Warfarin Sodium (Coumadin Per Pharmacy) 1 each PRN DAILY PRN MC SEE COMMENTS Last administered on 05/23/19at 16:50; Start 05/21/19 at 09:15 Ondansetron HCl (Zofran) 4 mg PRN Q6HRS PRN IV NAUSEA/VOMITING Last administered on 05/22/19at 23:05; Start 05/21/19 at 11:00 Amoxicillin/ Clavulanate Potassium (Augmentin 875/ 125mg) 1 tab DAILY PO Last administered on 05/23/19at 08:57; Start 05/23/19 at 09:00 Warfarin Sodium (Coumadin) 5 mg 1X WARF ONCE PO ; Start 05/22/19 at 16:00; Stop 05/22/19 at 16:01; Status DC Warfarin Sodium (Coumadin) 5 mg 1X WARF ONCE PO ; Start 05/23/19 at 17:00; Stop 05/23/19 at 17:01; Status DC Active Scripts Active Novolog Flexpen (Insulin Aspart) 300 Units/3 Ml Insuln.pen 8 Units SQ TIDWMEALS Reported Trazodone Hcl 100 Mg Tablet 1 Tab PO QHS Tramadol Hcl 50 Mg Tablet 50 Mg PO Q8HRS Torsemide 20 Mg Tablet 100 Mg PO BID Temazepam 15 Mg Capsule 1 Cap PO QHS Sinemet Cr 25-100 Tablet (Carbidopa/Levodopa) 1 Each Tablet.er 1 Tab PO TID Simethicone 80 Mg Tab.chew 80 Mg PO PRN Q6HRS PRN Senna Plus 8.6-50 mg Tablet (Sennosides/Docusate Sodium) 1 Each Tablet 1 Each PO BID Renvela (Sevelamer Carbonate) 800 Mg Tablet 3 Tab PO TIDAC Protonix (Pantoprazole Sodium) 40 Mg Tablet.dr 40 Mg PO DAILYAC Pravastatin Sodium 20 Mg Tablet 1 Tab PO HS Potassium Chloride 20 Meq Tablet.er 2 Tab PO DAILY Klor-Con M20 (Potassium Chloride) 20 Meq Tab.er.prt 1 Tab PO PRN DAILY PRN Novolog (Insulin Aspart) 100 Unit/1 Ml Cartridge 8 Unit SQ TIDBFRMEAL NITROGLYCERIN SubLingual (Nitroglycerin) 0.4 Mg Tab.subl 1 Tab SL UD PRN Miralax (Polyethylene Glycol 3350) 17 Gm Powd.pack 1 Packet PO BID Metoprolol Succinate ( Xl ) (Metoprolol Succinate) 25 Mg Tab.er.24h 1 Tab PO DAILY Metolazone 5 Mg Tablet 1.5 Tab PO DAILY Metolazone 2.5 Mg Tablet 2.5 Mg PO PRN DAILY PRN Melatonin 3 Mg Tablet 2 Tab PO QHS Levothyroxine Sodium 125 Mcg Tablet 1 Tab PO DAILY Lantus Solostar (Insulin Glargine,Hum.rec.anlog) 100 Unit/1 Ml Insuln.pen 12 Unit SQ QHS Acidophilus (Lactobacillus Acidophilus) 1 Each Capsule 1 Each PO DAILY Glucose Gel (Dextrose) 38 Gm Gel..gram. 38 Gm PO PRN PRN Gabapentin (Gabapentin) 100 Mg Capsule 100 Mg PO TID Flonase Allergy Relief (Fluticasone Propionate) 9.9 Ml Meigs.susp 2 Sprays NS DAILY Fleet Enema (Na Phos,M-B/Na Phos,Di-Ba) 133 Ml Enema 133 Ml RC PRN PRN Ferrous Gluconate 240 Mg Tablet 240 Mg PO DAILY Uloric (Febuxostat) 80 Mg Tablet 1 Tab PO DAILY Cymbalta (Duloxetine Hcl) 60 Mg Capsule. 1 Cap PO HS Cymbalta (Duloxetine Hcl) 30 Mg Capsule.dr 1 Cap PO DAILY Vitamin B-12 (Cyanocobalamin (Vitamin B-12)) 1,000 Mcg Tablet 1 Tab PO DAILY Coumadin (Warfarin Sodium) 2 Mg Tablet 1 Tab PO DAILY Vitamin D3 (Cholecalciferol (Vitamin D3)) 5,000 Unit Tablet 1 Tab PO DAILY Buspirone Hcl 5 Mg Tablet 1 Tab PO BID Bisacodyl 10 Mg Supp.rect 10 Mg RC PRN DAILY PRN Tylenol (Acetaminophen) 325 Mg Tablet 2 Tab PO PRN Q6HRS PRN Sertraline Hcl 100 Mg Tablet 100 Mg PO DAILY Aspir 81 (Aspirin) 81 Mg Tablet.dr 1 Tab PO DAILY Vitals/I & O Vital Sign - Last 24 Hours 05/22/19 05/22/19 05/22/19 05/23/19 19:25 20:00 23:25 03:25 Temp 98.4 99.0 99.1 98.4 99.0 99.1 Pulse 69 69 69 Resp 20 18 18 B/P (MAP) 113/40 (64) 122/49 (73) 151/59 (89) Pulse Ox 97 95 94 O2 Delivery Room Air Room Air Room Air Room Air 05/23/19 05/23/19 05/23/19 05/23/19 07:00 08:57 11:13 15:23 Temp 98.2 98.8 97.8 98.2 98.8 97.8 Pulse 70 70 70 70 Resp 20 20 18 B/P (MAP) 153/49 (83) 153/49 152/41 (78) 149/45 (79) Pulse Ox 94 92 94 Intake and Output 05/22/19 05/22/19 05/23/19 15:00 23:00 07:00 Intake Total 0 ml Output Total 550 ml 300 ml Balance -550 ml -300 ml ROMARIO ANDRE MD May 23, 2019 17:58
[2019-05-23 19:54] VITALS: BP 176/49
[2019-05-23] MEDS: traZODone 100 MG TABLET. PO SCH (21:22)
[2019-05-23] MEDS: ATORVASTATIN CALCIUM 10 MG TABLET. PO SCH (21:24)
[2019-05-23] MEDS: INSULIN GLARGINE SYRINGE. SQ SCH (21:33)
[2019-05-23 23:32] VITALS: BP 185/50
[2019-05-24] VITALS (7 sets, daily range): BP systolic 133–194; BP diastolic 35–80
[2019-05-24] MEDS: LEVOTHYROXINE 125 MCG TABLET PO SCH (05:08)
[2019-05-24] MEDS: AMINO AC 3%/ELECTROLYTE/GLYCER 1,000 ML IV SCH ×2 (05:10→17:35)
[2019-05-24 05:39] LABS: CALCIUM 8.8 mg/dL (8.5-10.1); CREATININE 2.8 mg/dL (0.7-1.3); POTASSIUM 4.3 mmol/L (3.5-5.1)
[2019-05-24 05:45] LABS: PROTHROMBIN TIME PATIENT 14.9 SEC (11.7-14.0)
[2019-05-24] MEDS: ASPIRIN ENTERIC COATED 81 MG TABLET.DR. PO SCH (07:24)
[2019-05-24] MEDS: INSULIN LISPRO 300 UNITS/3 ML VIAL. SQ SCH ×6 (08:00→17:13)
[2019-05-24] MEDS: SENNOSIDES/DOCUSATE 8.6/50MG TABLET. PO SCH ×2 (08:58→21:19)
[2019-05-24] MEDS: CARBIDOPA/LEVODOPA CR 25/100MG TABLET.SA. PO SCH ×3 (08:58→21:19)
[2019-05-24] MEDS: AMOXICILLIN/K CLAV 875/125MG TABLET. PO SCH (08:58)
[2019-05-24] MEDS: PANTOPRAZOLE 40 MG TABLET.DR. PO SCH (08:58)
[2019-05-24] MEDS: busPIRone 5 MG TABLET. PO SCH ×2 (08:58→21:17)
[2019-05-24] MEDS: CYANOCOBALAMIN (VITAMIN B-12) 1,000 MCG TABLET. PO SCH (08:58)
[2019-05-24] MEDS: FEBUXOSTAT 40 MG TABLET PO SCH (08:59)
[2019-05-24] MEDS: CHOLECALCIFEROL (VITAMIN D3) 5,000 UNIT CAPSULE PO SCH (08:59)
[2019-05-24] MEDS: FERROUS SULFATE 325 MG TABLET. PO SCH (08:59)
[2019-05-24] MEDS: POTASSIUM CHLORIDE 20 MEQ TABLET.ER. PO SCH (08:59)
[2019-05-24] MEDS: LACTOBACILLUS RHAMNOSUS GG 1 CAPSULE. PO SCH ×2 (08:59→21:18)
[2019-05-24] MEDS: METOPROLOL SUCC 24HR ER 25 MG TAB.ER.24H. PO SCH (09:00)
[2019-05-24] MEDS: FLUTICASONE 50MCG/NASAL SPRAY 16GM BOTTLE. NS SCH (09:00)
[2019-05-24] MEDS: POLYETHYLENE GLYCOL 3350 17 GM PACKET. PO SCH ×2 (09:00→21:18)
--- NOTE | 2019-05-24 09:19 | PDOC ---
PROGRESS NOTES Chief Complaint Chief Complaint impression Severe sepsis diarrhea [facility]CAP SNU resident Metabolic encephalopathy, worse today Hx CVA ckd stage 4-5 Weakness and debility, marked Pleural effusion CHF, stable Obesity, BMI 35 RUE ? cellulitis ABBY on CKD - likely this is vasomotor nephropathy due to poor PO intake Afib Cerebellar infarct - on CT scan, ? age Cardiomyopathy with pacemaker Severe protein calorie malnutrition\ dysphagia -on dysphagia 1 diet 05/24 marked nausea did not shannan evangelina lópez d/w RN, WILL ORDER KUB R/O ILEUS po augmentin x 5 days MAY BE CAUSE OF NAUSEA d/c to [facility] 38 min pt exam, chart review, > 50% of time spent with exam, chart review, pt care coordination History of Present Illness History of Present Illness emesis still SNU resident needs t be fed in SNU HE is bilateral BKA - so wheelchair bound HE is DNR< active med treatment' he is on warf for maybe bed bound issues, bilateral BKA PLAN: adjust insulin today SSI high dose SHIFT pls IV zyvox, zosyn per ID--switched to augmentin per ID DNR WArf per pharmacy goal 2-3 held off sedating meds for now like gabapentin, trazadone, cymbalta etc COnt dysphagia 1 diet dc back to SNF soon Vitals Vitals Vital Signs Date Time Temp Pulse Resp B/P (MAP) Pulse Ox O2 Delivery O2 Flow Rate FiO2 05/24/19 09:00 70 143/62 05/24/19 07:37 98.6 16 97 Room Air 98.6 Physical Exam Physical Exam GENERAL: awake HEENT: OC/OP- clean NECK: Supple. HEART: S1, S2 with a 2/6 murmur. Pacemaker ABDOMEN: Soft, nontender. No guarding. GENITOURINARY: Garcia in place. EXTREMITIES: Bilateral lower extremity BKAs Mild RUE erythema and dryness SKIN: warm to touch NEUROLOGIC: Nonverbal RIJ clean General: Cooperative, No acute distress, Other (oriented to person only) Heart: Regular rate, Normal S1, Normal S2, Other (3/6 systolic murmur ) Lungs: Clear, Other (decrease left base) Abdomen: Normal bowel sounds, Soft, Other (MILD DISTENSION) Extremities: No clubbing, Other (bilateral BKA, trace edema ) Skin: No rashes Labs LABS Laboratory Tests Test 05/23/19 10:58 05/23/19 17:08 05/23/19 20:49 05/24/19 05:15 Glucose (Fingerstick) 196 mg/dL (70-99) 125 mg/dL (70-99) 173 mg/dL (70-99) Prothrombin Time 14.9 SEC (11.7-14.0) Prothromb Time International Ratio 1.2 (0.8-1.1) Sodium Level 135 mmol/L (136-145) Potassium Level 4.3 mmol/L (3.5-5.1) Chloride Level 99 mmol/L (98-107) Carbon Dioxide Level 28 mmol/L (21-32) Anion Gap 8 (6-14) Blood Urea Nitrogen 105 mg/dL (8-26) Creatinine 2.8 mg/dL (0.7-1.3) Estimated GFR (Cockcroft-Gault) 22.0 Glucose Level 177 mg/dL (70-99) Calcium Level 8.8 mg/dL (8.5-10.1) Test 05/24/19 07:13 Glucose (Fingerstick) 159 mg/dL (70-99) Assessment and Plan Assessmemt and Plan Problems Medical Problems: (1) Acute kidney injury superimposed on CKD Status: Acute (2) Acute on chronic combined systolic (congestive) and diastolic (congestive) heart failure Status: Acute (3) Acute respiratory failure Status: Acute (4) Acute respiratory failure with hypoxia Status: Acute (5) ABBY (acute kidney injury) Status: Acute (6) CAD (coronary artery disease) Status: Chronic (7) Chronic a-fib Status: Chronic (8) Chronic kidney disease, stage 4 (severe) Status: Acute (9) CKD (chronic kidney disease), stage III Status: Chronic (10) CVA (cerebral vascular accident) Status: Acute (11) DM2 (diabetes mellitus, type 2) Status: Chronic (12) Dyspnea Status: Acute (13) HCAP (healthcare-associated pneumonia) Status: Acute (14) Metabolic encephalopathy Status: Acute (15) Pleural effusion on left Status: Acute (16) Pleural effusion, left Status: Acute (17) Pulmonary edema Status: Acute (18) Sepsis Status: Acute (19) Severe sepsis Status: Acute Comment Review of Relevant I have reviewed the following items nestor (where applicable) has been applied. Labs Laboratory Tests Test 05/22/19 10:22 05/22/19 16:09 05/22/19 20:00 05/22/19 20:14 Glucose (Fingerstick) 267 mg/dL (70-99) 135 mg/dL (70-99) 122 mg/dL (70-99) White Blood Count 11.2 x10^3/uL (4.0-11.0) Red Blood Count 2.75 x10^6/uL (4.30-5.70) Hemoglobin 7.6 g/dL (13.0-17.5) Hematocrit 23.8 % (39.0-53.0) Mean Corpuscular Volume 86 fL (79-100) Mean Corpuscular Hemoglobin 28 pg (25-35) Mean Corpuscular Hemoglobin Concent 32 g/dL (31-37) Red Cell Distribution Width 21.6 % (11.5-14.5) Platelet Count 175 x10^3/uL (140-400) Test 05/23/19 04:25 05/23/19 08:27 05/23/19 10:58 05/23/19 17:08 Prothrombin Time 14.6 SEC (11.7-14.0) Prothromb Time International Ratio 1.2 (0.8-1.1) Sodium Level 134 mmol/L (136-145) Potassium Level 4.7 mmol/L (3.5-5.1) Chloride Level 98 mmol/L (98-107) Carbon Dioxide Level 26 mmol/L (21-32) Anion Gap 10 (6-14) Blood Urea Nitrogen 103 mg/dL (8-26) Creatinine 3.0 mg/dL (0.7-1.3) Estimated GFR (Cockcroft-Gault) 20.3 Glucose Level 157 mg/dL (70-99) Calcium Level 9.0 mg/dL (8.5-10.1) Glucose (Fingerstick) 160 mg/dL (70-99) 196 mg/dL (70-99) 125 mg/dL (70-99) Test 05/23/19 20:49 05/24/19 05:15 05/24/19 07:13 Glucose (Fingerstick) 173 mg/dL (70-99) 159 mg/dL (70-99) Prothrombin Time 14.9 SEC (11.7-14.0) Prothromb Time International Ratio 1.2 (0.8-1.1) Sodium Level 135 mmol/L (136-145) Potassium Level 4.3 mmol/L (3.5-5.1) Chloride Level 99 mmol/L (98-107) Carbon Dioxide Level 28 mmol/L (21-32) Anion Gap 8 (6-14) Blood Urea Nitrogen 105 mg/dL (8-26) Creatinine 2.8 mg/dL (0.7-1.3) Estimated GFR (Cockcroft-Gault) 22.0 Glucose Level 177 mg/dL (70-99) Calcium Level 8.8 mg/dL (8.5-10.1) Laboratory Tests Test 05/23/19 10:58 05/23/19 17:08 05/23/19 20:49 05/24/19 05:15 Glucose (Fingerstick) 196 mg/dL (70-99) 125 mg/dL (70-99) 173 mg/dL (70-99) Prothrombin Time 14.9 SEC (11.7-14.0) Prothromb Time International Ratio 1.2 (0.8-1.1) Sodium Level 135 mmol/L (136-145) Potassium Level 4.3 mmol/L (3.5-5.1) Chloride Level 99 mmol/L (98-107) Carbon Dioxide Level 28 mmol/L (21-32) Anion Gap 8 (6-14) Blood Urea Nitrogen 105 mg/dL (8-26) Creatinine 2.8 mg/dL (0.7-1.3) Estimated GFR (Cockcroft-Gault) 22.0 Glucose Level 177 mg/dL (70-99) Calcium Level 8.8 mg/dL (8.5-10.1) Test 05/24/19 07:13 Glucose (Fingerstick) 159 mg/dL (70-99) Microbiology 05/16/19 Blood Culture - Final, Complete NO GROWTH AFTER 5 DAYS Medications Current Medications Vancomycin HCl (Vanco Per Pharmacy) 1 each PRN DAILY PRN MC SEE COMMENTS Last administered on 05/16/19at 02:12; Start 05/15/19 at 23:00; Stop 05/17/19 at 06:52; Status DC Levofloxacin/ Dextrose 150 ml @ 100 mls/hr 1X ONCE IV Last administered on 05/16/19at 00:17; Start 05/15/19 at 23:30; Stop 05/16/19 at 00:59; Status DC Sodium Chloride 1,000 ml @ 1,000 mls/hr 1X ONCE IV ; Start 05/15/19 at 23:30; Stop 05/16/19 at 00:29; Status DC Sodium Chloride 1,000 ml @ 1,000 mls/hr 1X ONCE IV Last administered on 05/16/19at 00:17; Start 05/15/19 at 23:30; Stop 05/16/19 at 00:29; Status DC Sodium Chloride 1,000 ml @ 1,000 mls/hr 1X ONCE IV Last administered on 05/16/19at 00:17; Start 05/15/19 at 23:30; Stop 05/16/19 at 00:29; Status DC Vancomycin HCl 2 gm/Sodium Chloride 500 ml @ 250 mls/hr 1X ONCE IV Last administered on 05/16/19at 00:15; Start 05/16/19 at 00:00; Stop 05/16/19 at 01:59; Status DC Ondansetron HCl (Zofran) 4 mg PRN Q8HRS PRN IV NAUSEA/VOMITING 1ST CHOICE; Start 05/16/19 at 01:45; Stop 05/17/19 at 01:44; Status DC Vancomycin HCl 1.25 gm/Sodium Chloride 250 ml @ 167 mls/hr Q48H IV ; Start 05/18/19 at 00:00; Stop 05/17/19 at 06:52; Status DC Vancomycin HCl (Vancomycin Trough Level) 1 each 1X ONCE MC ; Start 05/19/19 at 23:30; Stop 05/17/19 at 07:19; Status DC Albumin Human 100 ml @ 100 mls/hr 1X ONCE IV Last administered on 05/16/19at 04:14; Start 05/16/19 at 04:30; Stop 05/16/19 at 05:29; Status DC Norepinephrine Bitartrate 250 ml @ 17.031 mls/ hr CONT PRN IV SEE I/O RECORD L ast administered on 05/16/19at 04:21; Start 05/16/19 at 04:00; Stop 05/19/19 at 08:36; Status DC Info (FLU VACCINE SCREEN per RX) 1 each 1X ONCE MC ; Start 05/16/19 at 05:00; Stop 05/16/19 at 05:01; Status UNV Albumin Human 250 ml @ 125 mls/hr 1X ONCE IV Last administered on 05/16/19at 05:11; Start 05/16/19 at 05:30; Stop 05/16/19 at 07:29; Status DC Piperacillin Sod/ Tazobactam Sod 2.25 gm/Sodium Chloride 50 ml @ 100 mls/hr Q6HRS IV Last administered on 05/22/19at 06:02; Start 05/16/19 at 13:00; Stop 05/22/19 at 11:04; Status DC Linezolid/Dextrose 300 ml @ 300 mls/hr Q12HR IV Last administered on 05/22/19at 09:01; Start 05/17/19 at 09:00; Stop 05/22/19 at 11:04; Status DC Furosemide (Lasix) 40 mg 1X ONCE IVP Last administered on 05/17/19at 15:47; Start 05/17/19 at 15:45; Stop 05/17/19 at 15:46; Status DC Amino Acids/ Glycerin/ Electrolytes 1,000 ml @ 80 mls/hr [id number] IV Last administered on 05/24/19at 05:10; Start 05/18/19 at 10:00 Aspirin (Ecotrin) 81 mg DAILYWBKFT PO Last administered on 05/23/19at 09:44; Start 05/18/19 at 12:45 Furosemide (Lasix) 40 mg 1X ONCE IVP Last administered on 05/18/19at 15:39; Start 05/18/19 at 15:00; Stop 05/18/19 at 15:01; Status DC Metoprolol Succinate (Toprol Xl) 25 mg DAILY PO Last administered on 05/24/19at 09:00; Start 05/18/19 at 15:00 Insulin Glargine (Lantus Syringe) 12 unit QHS SQ Last administered on 05/20/19at 23:37; Start 05/18/19 at 21:00; Stop 05/21/19 at 09:11; Status DC Insulin Human Lispro (HumaLOG) 0-5 UNITS TIDWMEALS SQ Last administered on 04/30 10/17at 17:22; Start 05/18/19 at 17:00; Stop 05/21/19 at 09:11; Status DC Dextrose (Dextrose 50%-Water Syringe) 12.5 gm PRN Q15MIN PRN IV SEE COMMENTS; Start 05/18/19 at 17:00; Stop 05/21/19 at 09:12; Status DC Dextrose 250 ml PRN Q15MIN PRN IV SEE COMMENTS; Start 05/18/19 at 17:00; Stop 05/21/19 at 09:12; Status DC Insulin Human Lispro (HumaLOG) 6 units TIDWMEALS SQ Last administered on 05/23/19at 11:34; Start 05/18/19 at 17:00 Buspirone HCl (Buspar) 5 mg BID PO Last administered on 05/24/19at 08:58; Start 05/19/19 at 10:00 Carbidopa/Levodopa (Sinemet Cr) 1 tab.sa TID PO Last administered on 05/24/19at 08:58; Start 05/19/19 at 09:00 Levothyroxine Sodium (Synthroid) 125 mcg DAILY06 PO Last administered on 05/24/19at 05:08; Start 05/19/19 at 10:30 Polyethylene Glycol (miraLAX PACKET) 17 gm BID PO Last administered on 05/23/19at 21:25; Start 05/19/19 at 09:00 Sevelamer Carbonate (Renvela) 2,400 mg TIDAC PO Last administered on 05/20/19at 09:37; Start 05/19/19 at 11:30; Stop 05/20/19 at 14:10; Status DC Lactobacillus Rhamnosus (Culturelle) 1 cap BID PO Last administered on 05/24/19at 08:59; Start 05/20/19 at 21:00 Insulin Glargine (Lantus Syringe) 15 unit QHS SQ Last administered on 05/23/19at 21:33; Start 05/21/19 at 21:00 Insulin Human Lispro (HumaLOG) 0-9 UNITS TIDWMEALS SQ Last administered on 05/23/19at 11:34; Start 05/21/19 at 09:30 Dextrose (Dextrose 50%-Water Syringe) 12.5 gm PRN Q15MIN PRN IV SEE COMMENTS; Start 05/21/19 at 09:15 Dextrose 250 ml PRN Q15MIN PRN IV SEE COMMENTS; Start 05/21/19 at 09:15 Acetaminophen (Tylenol) 650 mg PRN Q6HRS PRN PO MILD PAIN 1-3; Start 05/21/19 at 09:15 Aspirin (Ecotrin) 81 mg DAILY PO ; Start 05/22/19 at 09:00; Status UNV Bisacodyl (Dulcolax Supp) 10 mg PRN DAILY PRN RC CONSTIPATION; Start 05/21/19 at 09:15 Cyanocobalamin (Vitamin B-12) 1,000 mcg DAILY PO Last administered on 05/24/19at 08:58; Start 05/21/19 at 10:00 Glucose (Insta-Glucose) 15 gm PRN DAILY PRN PO Hypoglycemia; Start 05/21/19 at 09:15 Metolazone (Zaroxolyn) 2.5 mg PRN DAILY PRN PO Weight gain/Fluid gain; Start 05/21/19 at 09:15 Metoprolol Succinate (Toprol Xl) 25 mg DAILY PO ; Start 05/22/19 at 09:00; Status UNV Sodium Monofluorophosphate (Fleet Adult) 133 ml PRN DAILY PRN RC CONSTIPATION; Start 05/21/19 at 09:15 Pantoprazole Sodium (Protonix) 40 mg DAILYAC PO Last administered on 05/24/19at 08:58; Start 05/21/19 at 10:00 Potassium Chloride (Klor-Con) 20 meq PRN DAILY PRN PO IF PRN METOLAZONE GIVEN; Start 05/21/19 at 09:15 Senna/Docusate Sodium (Senna Plus) 1 tab BID PO Last administered on 05/24/19at 08:58; Start 05/21/19 at 10:00 Simethicone (Gas-X) 80 mg PRN Q6HRS PRN PO HEARTBURN / GAS; Start 05/21/19 at 09:15 Torsemide (Demadex) 100 mg BID92 PO Last administered on 05/23/19at 14:51; Start 05/21/19 at 10:00 Trazodone HCl (Desyrel) 100 mg QHS PO Last administered on 05/23/19at 21:22; Start 05/21/19 at 21:00 Warfarin Sodium (Coumadin) 2 mg DAILY16 PO ; Start 05/21/19 at 16:00; Stop 05/22/19 at 15:45; Status DC Febuxostat (Uloric) 80 mg DAILY PO Last administered on 05/24/19 08:59; Start 05/21/19 at 10:00 Ferrous Sulfate (Feosol) 325 mg DAILYWBKFT PO Last administered on 05/24/19 08:59; Start 05/21/19 at 10:00 Fluticasone Propionate (Flonase) 2 spray DAILY NS Last administered on 05/23/19 08:57; Start 05/21/19 at 10:00 Lactobacillus Rhamnosus (Culturelle) 1 cap DAILY PO ; Start 05/22/19 at 09:00; Status UNV Non-Formulary Medication (Melatonin ) 2 tab QHS PO ; Start 05/21/19 at 21:00; Status UNV Metolazone (Zaroxolyn) 7.5 mg DAILY PO Last administered on 05/23/19 08:57; Start 05/21/19 at 10:00; Stop 05/23/19 at 11:13; Status DC Potassium Chloride (Klor-Con) 40 meq DAILYWBKFT PO Last administered on 05/24/19 08:59; Start 05/21/19 at 10:00 Atorvastatin Calcium (Lipitor) 5 mg QHS PO Last administered on 05/23/19at 21:24; Start 05/21/19 at 21:00 Vitamin D (Vitamin D3) 5,000 unit DAILY PO Last administered on 05/24/19 08:59; Start 05/21/19 at 10:00 Warfarin Sodium (Coumadin Per Pharmacy) 1 each PRN DAILY PRN MC SEE COMMENTS Last administered on 05/23/19at 16:50; Start 05/21/19 at 09:15 Ondansetron HCl (Zofran) 4 mg PRN Q6HRS PRN IV NAUSEA/VOMITING Last administered on 05/22/19 23:05; Start 05/21/19 at 11:00 Amoxicillin/ Clavulanate Potassium (Augmentin 875/ 125mg) 1 tab DAILY PO Last administered on 05/24/19 08:58; Start 05/23/19 at 09:00 Warfarin Sodium (Coumadin) 5 mg 1X WARF ONCE PO ; Start 05/22/19 at 16:00; Stop 05/22/19 at 16:01; Status DC Warfarin Sodium (Coumadin) 5 mg 1X WARF ONCE PO Last administered on 05/23/19at 17:59; Start 05/23/19 at 17:00; Stop 05/23/19 at 17:01; Status DC Active Scripts Active Novolog Flexpen (Insulin Aspart) 300 Units/3 Ml Insuln.pen 8 Units SQ TIDWMEALS Reported Trazodone Hcl 100 Mg Tablet 1 Tab PO QHS Tramadol Hcl 50 Mg Tablet 50 Mg PO Q8HRS Torsemide 20 Mg Tablet 100 Mg PO BID Temazepam 15 Mg Capsule 1 Cap PO QHS Sinemet Cr 25-100 Tablet (Carbidopa/Levodopa) 1 Each Tablet.er 1 Tab PO TID Simethicone 80 Mg Tab.chew 80 Mg PO PRN Q6HRS PRN Senna Plus 8.6-50 mg Tablet (Sennosides/Docusate Sodium) 1 Each Tablet 1 Each PO BID Renvela (Sevelamer Carbonate) 800 Mg Tablet 3 Tab PO TIDAC Protonix (Pantoprazole Sodium) 40 Mg Tablet.dr 40 Mg PO DAILYAC Pravastatin Sodium 20 Mg Tablet 1 Tab PO HS Potassium Chloride 20 Meq Tablet.er 2 Tab PO DAILY Klor-Con M20 (Potassium Chloride) 20 Meq Tab.er.prt 1 Tab PO PRN DAILY PRN Novolog (Insulin Aspart) 100 Unit/1 Ml Cartridge 8 Unit SQ TIDBFRMEAL NITROGLYCERIN SubLingual (Nitroglycerin) 0.4 Mg Tab.subl 1 Tab SL UD PRN Miralax (Polyethylene Glycol 3350) 17 Gm Powd.pack 1 Packet PO BID Metoprolol Succinate ( Xl ) (Metoprolol Succinate) 25 Mg Tab.er.24h 1 Tab PO DAILY Metolazone 5 Mg Tablet 1.5 Tab PO DAILY Metolazone 2.5 Mg Tablet 2.5 Mg PO PRN DAILY PRN Melatonin 3 Mg Tablet 2 Tab PO QHS Levothyroxine Sodium 125 Mcg Tablet 1 Tab PO DAILY Lantus Solostar (Insulin Glargine,Hum.rec.anlog) 100 Unit/1 Ml Insuln.pen 12 Unit SQ QHS Acidophilus (Lactobacillus Acidophilus) 1 Each Capsule 1 Each PO DAILY Glucose Gel (Dextrose) 38 Gm Gel..gram. 38 Gm PO PRN PRN Gabapentin (Gabapentin) 100 Mg Capsule 100 Mg PO TID Flonase Allergy Relief (Fluticasone Propionate) 9.9 Ml Anthony.susp 2 Sprays NS DAILY Fleet Enema (Na Phos,M-B/Na Phos,Di-Ba) 133 Ml Enema 133 Ml RC PRN PRN Ferrous Gluconate 240 Mg Tablet 240 Mg PO DAILY Uloric (Febuxostat) 80 Mg Tablet 1 Tab PO DAILY Cymbalta (Duloxetine Hcl) 60 Mg Capsule.dr 1 Cap PO HS Cymbalta (Duloxetine Hcl) 30 Mg Capsule.dr 1 Cap PO DAILY Vitamin B-12 (Cyanocobalamin (Vitamin B-12)) 1,000 Mcg Tablet 1 Tab PO DAILY Coumadin (Warfarin Sodium) 2 Mg Tablet 1 Tab PO DAILY Vitamin D3 (Cholecalciferol (Vitamin D3)) 5,000 Unit Tablet 1 Tab PO DAILY Buspirone Hcl 5 Mg Tablet 1 Tab PO BID Bisacodyl 10 Mg Supp.rect 10 Mg RC PRN DAILY PRN Tylenol (Acetaminophen) 325 Mg Tablet 2 Tab PO PRN Q6HRS PRN Sertraline Hcl 100 Mg Tablet 100 Mg PO DAILY Aspir 81 (Aspirin) 81 Mg Tablet.dr 1 Tab PO DAILY Vitals/I & O Vital Sign - Last 24 Hours 05/23/19 05/23/19 05/23/19 05/23/19 11:13 15:23 19:54 20:00 Temp 98.8 97.8 98.2 98.8 97.8 98.2 Pulse 70 70 70 Resp 20 18 16 B/P (MAP) 152/41 (78) 149/45 (79) 176/49 (91) Pulse Ox 92 94 96 O2 Delivery Room Air Room Air 05/23/19 05/24/19 05/24/19 05/24/19 23:32 03:27 07:37 09:00 Temp 98.7 98.6 98.6 98.7 98.6 98.6 Pulse 65 70 70 70 Resp 16 20 16 B/P (MAP) 185/50 (95) 156/35 (75) 143/62 (89) 143/62 Pulse Ox 94 94 97 O2 Delivery Room Air Room Air Room Air Intake and Output 05/23/19 05/23/19 05/24/19 15:00 23:00 07:00 Intake Total 200 ml 100 ml Output Total 1200 ml 950 ml Balance -1000 ml -850 ml SCOTT VASQUEZ MD May 24, 2019 09:19
--- NOTE | 2019-05-24 09:53 | PDOC ---
Infectious Disease Note Subjective Subjective feeling ok ROS ROS no n/v/d/ Vital Sign Vital Signs Vital Signs Date Time Temp Pulse Resp B/P (MAP) Pulse Ox O2 Delivery O2 Flow Rate FiO2 05/24/19 09:00 70 143/62 05/24/19 07:37 98.6 16 97 Room Air 98.6 Physical Exam PHYSICAL EXAM GENERAL: awake HEENT: OC/OP- clean NECK: Supple. HEART: S1, S2 with a 2/6 murmur. Pacemaker ABDOMEN: Soft, nontender. No guarding. GENITOURINARY: Garcia in place. EXTREMITIES: Bilateral lower extremity BKAs Mild RUE erythema and dryness SKIN: warm to touch NEUROLOGIC: Nonverbal RIJ clean Labs Lab Laboratory Tests Test 05/23/19 10:58 05/23/19 17:08 05/23/19 20:49 05/24/19 05:15 Glucose (Fingerstick) 196 mg/dL (70-99) 125 mg/dL (70-99) 173 mg/dL (70-99) Prothrombin Time 14.9 SEC (11.7-14.0) Prothromb Time International Ratio 1.2 (0.8-1.1) Sodium Level 135 mmol/L (136-145) Potassium Level 4.3 mmol/L (3.5-5.1) Chloride Level 99 mmol/L (98-107) Carbon Dioxide Level 28 mmol/L (21-32) Anion Gap 8 (6-14) Blood Urea Nitrogen 105 mg/dL (8-26) Creatinine 2.8 mg/dL (0.7-1.3) Estimated GFR (Cockcroft-Gault) 22.0 Glucose Level 177 mg/dL (70-99) Calcium Level 8.8 mg/dL (8.5-10.1) Test 05/24/19 07:13 Glucose (Fingerstick) 159 mg/dL (70-99) Micro Microbiology 05/16/19 Blood Culture - Preliminary, Resulted NO GROWTH AFTER 4 DAYS Objective Assessment Sepsis POA - fever/Hypotension/pneumonia/Encephalopathy/ABBY. Elevated Procalcitonin but ? reliability in renal failure RUE ? cellulitis Pneumonia ABBY on CKD Cephalexin allergy but has tolerated Zosyn/Meropenem in past Leukocytosis - better L max ? sinusitis Afib Cerebellar infarct - ? age Cardiomyopathy with pacemaker Plan Plan of Care po augmentin x 5 days d/c to NH d/c ZULMA Murphy MD May 24, 2019 09:52
[2019-05-24] MEDS: TORSEMIDE 20 MG TABLET. PO SCH ×2 (11:30→14:48)
--- NOTE | 2019-05-24 12:22 | PDOC ---
Renal-Progress Notes Subjective Notes Notes NO NEW COMPLAINTS History of Present Illness Hx of present illness STABLE Vitals Vitals Vital Signs Date Time Temp Pulse Resp B/P (MAP) Pulse Ox O2 Delivery O2 Flow Rate FiO2 05/24/19 11:22 98.8 70 20 184/56 (98) 98 Room Air 98.8 Weight Weight [ ] I.O. Intake and Output Intake and Output 05/24/19 07:00 Intake Total 300 ml Output Total 2150 ml Balance -1850 ml Intake Oral 300 ml Output Urine Total 2150 ml # Bowel Movements 1 Labs Labs Laboratory Tests Test 05/23/19 17:08 05/23/19 20:49 05/24/19 05:15 05/24/19 07:13 Glucose (Fingerstick) 125 mg/dL (70-99) 173 mg/dL (70-99) 159 mg/dL (70-99) Prothrombin Time 14.9 SEC (11.7-14.0) Prothromb Time International Ratio 1.2 (0.8-1.1) Sodium Level 135 mmol/L (136-145) Potassium Level 4.3 mmol/L (3.5-5.1) Chloride Level 99 mmol/L (98-107) Carbon Dioxide Level 28 mmol/L (21-32) Anion Gap 8 (6-14) Blood Urea Nitrogen 105 mg/dL (8-26) Creatinine 2.8 mg/dL (0.7-1.3) Estimated GFR (Cockcroft-Gault) 22.0 Glucose Level 177 mg/dL (70-99) Calcium Level 8.8 mg/dL (8.5-10.1) Test 05/24/19 10:55 Glucose (Fingerstick) 115 mg/dL (70-99) Micro Micro Microbiology 05/16/19 Blood Culture - Final, Complete NO GROWTH AFTER 5 DAYS Review of Systems Constitutional: yes: other (STABLE) Physical Exam General Appearance: no apparent distress Skin: dry Respiratory: decreased breath sounds Heart: S1S2 Abdomen: soft, bowel sounds present Genitourinary: bladder flat Extremities: pulses present, no edema Neurology: alert, confused Assessment Assessment IMP CKD STAGE 4-CR STABLE AT HIS BASELINE OF ABOUT 3.0 SEPSIS PNEUMONIA DEMENTIA POOR PO INTAKE WITH EMESIS THIS AM PLAN SALINE 1 LITER STOP HIS METOLAZONE FOR NOW-BECOMING PRERENAL CONT ANTIBIOTICS CONT TORSEMIDE WILL FOLLOW BETO TAYLOR MD May 24, 2019 12:22
[2019-05-24] MEDS ORDERED: IV NORMAL SALINE 1000ML BAG 1,000 ML IV ONE (13:00)
[2019-05-24] MEDS ORDERED: hydrALAZINE 20 MG/ML VIAL. IVP PRN (14:15)
--- NOTE | 2019-05-24 15:36 | PDOC2 ---
GI CONSULT Reason For Consult: Persistent nausea HPI: HPI: 78 y/o male admitted on 05/16/19 w/ possible sepsis. No meaningful history from him. Discussed w/ nurse who notes daily vomiting (related to taking pills and eating), oropharyngeal dysphagia (on dysphagia diet per [employer]TING [employer]ACH[employer]), burping, and retching - taking Augmentin and Torsemide with meals because of this. Has chronic anemia w/ chronic illnesses as below. On PPI here, also iron, B12, [place] rfarin, ASA, Miralax, and PPN. Last stooled on 05/22. PMH: PMH: A Fib, CAD, CHF, HTN, HLD, PAD, CVA, anemia, anxeity, OA, gout, CKD, DM, hypothyroidism AICD, CABG, hernia repair, AV fistula, bilateral BKA FH: Family History: No pertinent hx Social History: Smoke: No ALCOHOL: none Drugs: None ROS: Not a good historian. Vitals: Vitals: Vital Signs Date Time Temp Pulse Resp B/P (MAP) Pulse Ox O2 Delivery O2 Flow Rate FiO2 05/24/19 15:00 97.8 64 18 155/35 (75) Room Air 97.8 05/24/19 11:22 98 Labs: Labs: Laboratory Tests Test 05/23/19 17:08 05/23/19 20:49 05/24/19 05:15 05/24/19 07:13 Glucose (Fingerstick) 125 mg/dL (70-99) 173 mg/dL (70-99) 159 mg/dL (70-99) Prothrombin Time 14.9 SEC (11.7-14.0) Prothromb Time International Ratio 1.2 (0.8-1.1) Sodium Level 135 mmol/L (136-145) Potassium Level 4.3 mmol/L (3.5-5.1) Chloride Level 99 mmol/L (98-107) Carbon Dioxide Level 28 mmol/L (21-32) Anion Gap 8 (6-14) Blood Urea Nitrogen 105 mg/dL (8-26) Creatinine 2.8 mg/dL (0.7-1.3) Estimated GFR (Cockcroft-Gault) 22.0 Glucose Level 177 mg/dL (70-99) Calcium Level 8.8 mg/dL (8.5-10.1) Test 05/24/19 10:55 Glucose (Fingerstick) 115 mg/dL (70-99) BLOOD CULTURE Final NO GROWTH AFTER 5 DAYS Allergies: Coded Allergies: bumetanide (Verified Allergy, Intermediate, 05/17/19) TOLERATES FUROSEMIDE cephalexin (Verified Allergy, Intermediate, 05/16/19) HAS TOLERATED MERREM AND ZOSYN metformin (Verified Allergy, Intermediate, 05/31/18) Medications: Current Medications Medications (Trade) Dose Ordered Sig/Adithya Route PRN Reason Start Time Stop Time Status Last Admin Dose Admin Warfarin Sodium (Coumadin) 5 mg 1X WARF ONCE PO 05/23/19 17:00 05/23/19 17:01 DC 05/23/19 17:59 Sodium Chloride 1,000 ml @ 75 mls/hr 1X ONCE IV 05/24/19 13:00 05/25/19 02:19 05/24/19 14:48 Imaging: Imaging: Chest CT IMPRESSION: 1. Moderate left lower lobe lung consolidation with moderate size left pleural effusion identified. 2. Moderate prominent appearing bilateral interstitial lung markings likely congestive changes. 3. Cholelithiasis. Head CT IMPRESSION: The right cerebellar hypoattenuating lesion is now more rounded, likely evolving cerebellar infarct. This can be further assessed with MRI or continued follow-up with CT to assess progression. Renal US IMPRESSION: Limited examination due to patient body habitus. No evidence of hydronephrosis. CXR IMPRESSION: 1. Probable moderate left pleural effusion 2. Probable congestive heart failure with interstitial and alveolar infiltrates most likely reflecting edema. An underlying pneumonia cannot be excluded radiographically. Echocardiogram <Conclusion> The left ventricle is normal size. Left ventricle systolic function is mildly impaired. The Ejection Fraction is 45-50%. There is a mildly flattened septum consistent with right ventricle pressure overload. There are device leads in the right ventricle and atrium. There is no significant aortic valvular stenosis. Doppler and Color Flow revealed no significant aortic regurgitation. Doppler and Color Flow revealed mild mitral valve regurgitation. Doppler and Color Flow revealed mild tricuspid regurgitation. The PA pressure was estimated at 48 mmHg. AAS pending PE: GEN: NAD - nurses present HEENT: Atraumatic, PERRL LUNGS: clear anteriorly HEART: RRR ABD: NABS, S/ND/NT EXTREMITY: bilateral BKA SKIN: No rashes, no jaundice NEURO/PSYCH: confused A/P: A/P: Sepsis, ?pneumonia A Fib, CAD, CHF, CKD, DM N/v/retching, dysphagia Chronic anemia - on iron and B12 Cholelithiasis - on chest CT -- Await acute abdominal series. Continue PPI. NIKOLAY PROCTOR May 24, 2019 15:36
[2019-05-24] MEDS: WARFARIN 3 MG TABLET. PO ONE ×3 (17:34→21:16)
--- NOTE | 2019-05-24 17:43 | RAD ---
Examination: ACUTE ABDOMEN SERIES History: Vomiting Comparison/Correlation: 07/28/2012 two-view chest x-ray exam Findings: Portable semierect view of chest was obtained. Supine and upright views of the abdomen were obtained. Right internal jugular catheter ends overlying the right atrium. Sternal wires and mediastinal clips are present. Cardiomegaly is present. Prominent vascular structures congested. Interstitial edema of lung al noted. Right upper lung field interstitial thickening in particular noted. Left basilar opacification noted and this may represent underlying pleural effusion. Minimal right pleural effusion. Gaseous distention of the stomach is present. No bowel obstruction. Vascular calcifications are present. Osteopenia noted. Impression: Congestive heart failure. Pleural effusions. Right upper lung field interstitial edema or infiltrate noted. Follow-up to assess for resolution recommended. No obstruction. Electronically signed by: Sergei Faria MD (05/24/2019 5:40 PM) [facility]
[2019-05-24] MEDS: INSULIN GLARGINE SYRINGE. SQ SCH (21:15)
[2019-05-24] MEDS: ATORVASTATIN CALCIUM 10 MG TABLET. PO SCH (21:18)
[2019-05-24] MEDS: traZODone 100 MG TABLET. PO SCH (21:18)
[2019-05-25 03:32] VITALS: BP 126/34
[2019-05-25] MEDS: AMINO AC 3%/ELECTROLYTE/GLYCER 1,000 ML IV SCH ×2 (05:41→17:04)
[2019-05-25 06:09] LABS: BASO % 0 % (0-3); EOS # 0.5 x10^3/uL (0.0-0.7); EOS % 8 % (0-3); HEMATOCRIT 21.6 % (39.0-53.0); HEMOGLOBIN 7.1 g/dL (13.0-17.5); LYMPH # 0.8 x10^3/uL (1.0-4.8); LYMPH % 10 % (24-48); MEAN CORPUSCULAR HEMOGLOBIN 28 pg (25-35); MEAN CORPUSCULAR HGB CONC 33 g/dL (31-37); MEAN CORPUSCULAR VOLUME 86 fL (79-100); MONO # 0.6 x10^3/uL (0.0-1.1); MONO % 8 % (0-9); NEUT # 5.3 x10^3/uL (1.8-7.7); NEUT % 73 % (31-73); PLATELET COUNT 154 x10^3/uL (140-400); RED BLOOD COUNT 2.51 x10^6/uL (4.30-5.70); RED CELL DISTRIBUTION WIDTH 21.6 % (11.5-14.5); WHITE BLOOD COUNT 7.3 x10^3/uL (4.0-11.0)
[2019-05-25 06:17] LABS: PROTHROMBIN TIME PATIENT 15.1 SEC (11.7-14.0)
[2019-05-25 06:38] LABS: CALCIUM 8.8 mg/dL (8.5-10.1); CREATININE 2.6 mg/dL (0.7-1.3); POTASSIUM 3.8 mmol/L (3.5-5.1)
--- NOTE | 2019-05-25 07:27 | PDOC ---
PROGRESS NOTES Chief Complaint Chief Complaint impression Severe sepsis diarrhea [facility]CAP SNU resident Metabolic encephalopathy, worse today Hx CVA ckd stage 4-5 Weakness and debility, marked Pleural effusion CHF, stable Obesity, BMI 35 RUE ? cellulitis ABBY on CKD - likely this is vasomotor nephropathy due to poor PO intake Afib Cerebellar infarct - on CT scan, ? age Cardiomyopathy with pacemaker Severe protein calorie malnutrition\ ON PPN dysphagia -on dysphagia 1 diet uncontrolled hypertension 05/24 POOR DENTITION 05/24 marked nausea did not shannan luncH, wretching d/w RN, WILL ORDER KUB R/O ILEUS 05/25 REFUSING TO EAT WILL CONSULT PALLIATIVE CARE po augmentin x 4 days MAY BE CAUSE OF NAUSEA d/c to [facility] CONSIDER PALLIATIVE CARE 38 min pt exam, chart review, > 50% of time spent with exam, chart review, pt care coordination History of Present Illness History of Present Illness emesis still SNU resident needs t be fed in SNU HE is bilateral BKA - so wheelchair bound HE is DNR< active med treatment' he is on warf for maybe bed bound issues, bilateral BKA PLAN: adjust insulin today SSI high dose SHIFT pls IV zyvox, zosyn per ID--switched to augmentin per ID DNR WArf per pharmacy goal 2-3 held off sedating meds for now like gabapentin, trazadone, cymbalta etc COnt dysphagia 1 diet dc back to SNF soon Vitals Vitals Vital Signs Date Time Temp Pulse Resp B/P (MAP) Pulse Ox O2 Delivery O2 Flow Rate FiO2 05/25/19 03:32 98.2 70 16 126/34 (64) 93 Room Air 98.2 05/24/19 23:00 3.0 Physical Exam Physical Exam GENERAL: awake CANNOT TELL ME CORRECT YEAR HEENT: OC/OP- clean NECK: Supple. HEART: S1, S2 with a 2/6 murmur. Pacemaker ABDOMEN: Soft, nontender. No guarding. GENITOURINARY: Garcia in place. EXTREMITIES: Bilateral lower extremity BKAs Mild RUE erythema and dryness SKIN: warm to touch NEUROLOGIC: Nonverbal RIJ clean General: Alert, Cooperative, No acute distress, Other (oriented to person only) Heart: Regular rate, Normal S1, Normal S2, Other (3/6 systolic murmur ) Lungs: Clear, Other (decrease left base) Abdomen: Normal bowel sounds, Soft, No hepatosplenomegaly, Other (MILD DISTENSION) Extremities: No clubbing, No cyanosis, Other (bilateral BKA, trace edema ) Skin: No rashes Labs LABS SEX: M EXAM STATUS: ADM IN ORD. PHYSICIAN: SCOTT VASQUEZ MD REASON: vomiting PROCEDURE: ACUTE ABDOMEN SERIES Examination: ACUTE ABDOMEN SERIES History: Vomiting Comparison/Correlation: 07/28/2012 two-view chest x-ray exam Findings: Portable semierect view of chest was obtained. Supine and upright views of the abdomen were obtained. Right internal jugular catheter ends overlying the right atrium. Sternal wires and mediastinal clips are present. Cardiomegaly is present. Prominent vascular structures congested. Interstitial edema of lung al noted. Right upper lung field interstitial thickening in particular noted. Left basilar opacification noted and this may represent underlying pleural effusion. Minimal right pleural effusion. Gaseous distention of the stomach is present. No bowel obstruction. Vascular calcifications are present. Osteopenia noted. Impression: Congestive heart failure. Pleural effusions. Right upper lung field interstitial edema or infiltrate noted. Follow-up to assess for resolution recommended. No obstruction. Electronically signed by: Sergei Faria MD (05/24/2019 5:40 PM) [facility] Laboratory Tests Test 05/24/19 10:55 05/24/19 16:41 05/24/19 18:01 05/24/19 20:39 Glucose (Fingerstick) 115 mg/dL (70-99) 91 mg/dL (70-99) 102 mg/dL (70-99) 100 mg/dL (70-99) Test 05/25/19 04:10 05/25/19 05:50 Glucose (Fingerstick) 93 mg/dL (70-99) White Blood Count 7.3 x10^3/uL (4.0-11.0) Red Blood Count 2.51 x10^6/uL (4.30-5.70) Hemoglobin 7.1 g/dL (13.0-17.5) Hematocrit 21.6 % (39.0-53.0) Mean Corpuscular Volume 86 fL (79-100) Mean Corpuscular Hemoglobin 28 pg (25-35) Mean Corpuscular Hemoglobin Concent 33 g/dL (31-37) Red Cell Distribution Width 21.6 % (11.5-14.5) Platelet Count 154 x10^3/uL (140-400) Neutrophils (%) (Auto) 73 % (31-73) Lymphocytes (%) (Auto) 10 % (24-48) Monocytes (%) (Auto) 8 % (0-9) Eosinophils (%) (Auto) 8 % (0-3) Basophils (%) (Auto) 0 % (0-3) Neutrophils # (Auto) 5.3 x10^3/uL (1.8-7.7) Lymphocytes # (Auto) 0.8 x10^3/uL (1.0-4.8) Monocytes # (Auto) 0.6 x10^3/uL (0.0-1.1) Eosinophils # (Auto) 0.5 x10^3/uL (0.0-0.7) Basophils # (Auto) 0.0 x10^3/uL (0.0-0.2) Prothrombin Time 15.1 SEC (11.7-14.0) Prothromb Time International Ratio 1.2 (0.8-1.1) Sodium Level 135 mmol/L (136-145) Potassium Level 3.8 mmol/L (3.5-5.1) Chloride Level 97 mmol/L (98-107) Carbon Dioxide Level 29 mmol/L (21-32) Anion Gap 9 (6-14) Blood Urea Nitrogen 104 mg/dL (8-26) Creatinine 2.6 mg/dL (0.7-1.3) Estimated GFR (Cockcroft-Gault) 24.0 Glucose Level 94 mg/dL (70-99) Calcium Level 8.8 mg/dL (8.5-10.1) Assessment and Plan Assessmemt and Plan Problems Medical Problems: (1) Acute kidney injury superimposed on CKD Status: Acute (2) Acute on chronic combined systolic (congestive) and diastolic (congestive) heart failure Status: Acute (3) Acute respiratory failure Status: Acute (4) Acute respiratory failure with hypoxia Status: Acute (5) ABBY (acute kidney injury) Status: Acute (6) CAD (coronary artery disease) Status: Chronic (7) Chronic a-fib Status: Chronic (8) Chronic kidney disease, stage 4 (severe) Status: Acute (9) CKD (chronic kidney disease), stage III Status: Chronic (10) CVA (cerebral vascular accident) Status: Acute (11) DM2 (diabetes mellitus, type 2) Status: Chronic (12) Dyspnea Status: Acute (13) HCAP (healthcare-associated pneumonia) Status: Acute (14) Metabolic encephalopathy Status: Acute (15) Pleural effusion on left Status: Acute (16) Pleural effusion, left Status: Acute (17) Pulmonary edema Status: Acute (18) Sepsis Status: Acute (19) Severe sepsis Status: Acute Comment Review of Relevant I have reviewed the following items nestor (where applicable) has been applied. Labs Laboratory Tests Test 05/23/19 08:27 05/23/19 10:58 05/23/19 17:08 05/23/19 20:49 Glucose (Fingerstick) 160 mg/dL (70-99) 196 mg/dL (70-99) 125 mg/dL (70-99) 173 mg/dL (70-99) Test 05/24/19 05:15 05/24/19 07:13 05/24/19 10:55 05/24/19 16:41 Prothrombin Time 14.9 SEC (11.7-14.0) Prothromb Time International Ratio 1.2 (0.8-1.1) Sodium Level 135 mmol/L (136-145) Potassium Level 4.3 mmol/L (3.5-5.1) Chloride Level 99 mmol/L (98-107) Carbon Dioxide Level 28 mmol/L (21-32) Anion Gap 8 (6-14) Blood Urea Nitrogen 105 mg/dL (8-26) Creatinine 2.8 mg/dL (0.7-1.3) Estimated GFR (Cockcroft-Gault) 22.0 Glucose Level 177 mg/dL (70-99) Calcium Level 8.8 mg/dL (8.5-10.1) Glucose (Fingerstick) 159 mg/dL (70-99) 115 mg/dL (70-99) 91 mg/dL (70-99) Test 05/24/19 18:01 05/24/19 20:39 05/25/19 04:10 05/25/19 05:50 Glucose (Fingerstick) 102 mg/dL (70-99) 100 mg/dL (70-99) 93 mg/dL (70-99) White Blood Count 7.3 x10^3/uL (4.0-11.0) Red Blood Count 2.51 x10^6/uL (4.30-5.70) Hemoglobin 7.1 g/dL (13.0-17.5) Hematocrit 21.6 % (39.0-53.0) Mean Corpuscular Volume 86 fL (79-100) Mean Corpuscular Hemoglobin 28 pg (25-35) Mean Corpuscular Hemoglobin Concent 33 g/dL (31-37) Red Cell Distribution Width 21.6 % (11.5-14.5) Platelet Count 154 x10^3/uL (140-400) Neutrophils (%) (Auto) 73 % (31-73) Lymphocytes (%) (Auto) 10 % (24-48) Monocytes (%) (Auto) 8 % (0-9) Eosinophils (%) (Auto) 8 % (0-3) Basophils (%) (Auto) 0 % (0-3) Neutrophils # (Auto) 5.3 x10^3/uL (1.8-7.7) Lymphocytes # (Auto) 0.8 x10^3/uL (1.0-4.8) Monocytes # (Auto) 0.6 x10^3/uL (0.0-1.1) Eosinophils # (Auto) 0.5 x10^3/uL (0.0-0.7) Basophils # (Auto) 0.0 x10^3/uL (0.0-0.2) Prothrombin Time 15.1 SEC (11.7-14.0) Prothromb Time International Ratio 1.2 (0.8-1.1) Sodium Level 135 mmol/L (136-145) Potassium Level 3.8 mmol/L (3.5-5.1) Chloride Level 97 mmol/L (98-107) Carbon Dioxide Level 29 mmol/L (21-32) Anion Gap 9 (6-14) Blood Urea Nitrogen 104 mg/dL (8-26) Creatinine 2.6 mg/dL (0.7-1.3) Estimated GFR (Cockcroft-Gault) 24.0 Glucose Level 94 mg/dL (70-99) Calcium Level 8.8 mg/dL (8.5-10.1) Laboratory Tests Test 05/24/19 10:55 05/24/19 16:41 05/24/19 18:01 05/24/19 20:39 Glucose (Fingerstick) 115 mg/dL (70-99) 91 mg/dL (70-99) 102 mg/dL (70-99) 100 mg/dL (70-99) Test 05/25/19 04:10 05/25/19 05:50 Glucose (Fingerstick) 93 mg/dL (70-99) White Blood Count 7.3 x10^3/uL (4.0-11.0) Red Blood Count 2.51 x10^6/uL (4.30-5.70) Hemoglobin 7.1 g/dL (13.0-17.5) Hematocrit 21.6 % (39.0-53.0) Mean Corpuscular Volume 86 fL (79-100) Mean Corpuscular Hemoglobin 28 pg (25-35) Mean Corpuscular Hemoglobin Concent 33 g/dL (31-37) Red Cell Distribution Width 21.6 % (11.5-14.5) Platelet Count 154 x10^3/uL (140-400) Neutrophils (%) (Auto) 73 % (31-73) Lymphocytes (%) (Auto) 10 % (24-48) Monocytes (%) (Auto) 8 % (0-9) Eosinophils (%) (Auto) 8 % (0-3) Basophils (%) (Auto) 0 % (0-3) Neutrophils # (Auto) 5.3 x10^3/uL (1.8-7.7) Lymphocytes # (Auto) 0.8 x10^3/uL (1.0-4.8) Monocytes # (Auto) 0.6 x10^3/uL (0.0-1.1) Eosinophils # (Auto) 0.5 x10^3/uL (0.0-0.7) Basophils # (Auto) 0.0 x10^3/uL (0.0-0.2) Prothrombin Time 15.1 SEC (11.7-14.0) Prothromb Time International Ratio 1.2 (0.8-1.1) Sodium Level 135 mmol/L (136-145) Potassium Level 3.8 mmol/L (3.5-5.1) Chloride Level 97 mmol/L (98-107) Carbon Dioxide Level 29 mmol/L (21-32) Anion Gap 9 (6-14) Blood Urea Nitrogen 104 mg/dL (8-26) Creatinine 2.6 mg/dL (0.7-1.3) Estimated GFR (Cockcroft-Gault) 24.0 Glucose Level 94 mg/dL (70-99) Calcium Level 8.8 mg/dL (8.5-10.1) Microbiology 05/16/19 Blood Culture - Final, Complete NO GROWTH AFTER 5 DAYS Medications Current Medications Vancomycin HCl (Vanco Per Pharmacy) 1 each PRN DAILY PRN MC SEE COMMENTS Last administered on 05/16/19at 02:12; Start 05/15/19 at 23:00; Stop 05/17/19 at 06:52; Status DC Levofloxacin/ Dextrose 150 ml @ 100 mls/hr 1X ONCE IV Last administered on 05/16/19at 00:17; Start 05/15/19 at 23:30; Stop 05/16/19 at 00:59; Status DC Sodium Chloride 1,000 ml @ 1,000 mls/hr 1X ONCE IV ; Start 05/15/19 at 23:30; Stop 05/16/19 at 00:29; Status DC Sodium Chloride 1,000 ml @ 1,000 mls/hr 1X ONCE IV Last administered on 05/16/19at 00:17; Start 05/15/19 at 23:30; Stop 05/16/19 at 00:29; Status DC Sodium Chloride 1,000 ml @ 1,000 mls/hr 1X ONCE IV Last administered on 05/16/19at 00:17; Start 05/15/19 at 23:30; Stop 05/16/19 at 00:29; Status DC Vancomycin HCl 2 gm/Sodium Chloride 500 ml @ 250 mls/hr 1X ONCE IV Last administered on 05/16/19at 00:15; Start 05/16/19 at 00:00; Stop 05/16/19 at 01:59; Status DC Ondansetron HCl (Zofran) 4 mg PRN Q8HRS PRN IV NAUSEA/VOMITING 1ST CHOICE; Start 05/16/19 at 01:45; Stop 05/17/19 at 01:44; Status DC Vancomycin HCl 1.25 gm/Sodium Chloride 250 ml @ 167 mls/hr Q48H IV ; Start 05/18/19 at 00:00; Stop 05/17/19 at 06:52; Status DC Vancomycin HCl (Vancomycin Trough Level) 1 each 1X ONCE MC ; Start 05/19/19 at 23:30; Stop 05/17/19 at 07:19; Status DC Albumin Human 100 ml @ 100 mls/hr 1X ONCE IV Last administered on 05/16/19at 04:14; Start 05/16/19 at 04:30; Stop 05/16/19 at 05:29; Status DC Norepinephrine Bitartrate 250 ml @ 17.031 mls/ hr CONT PRN IV SEE I/O RECORD Last administered on 05/16/19at 04:21; Start 05/16/19 at 04:00; Stop 05/19/19 at 08:36; Status DC Info (FLU VACCINE SCREEN per RX) 1 each 1X ONCE MC ; Start 05/16/19 at 05:00; Stop 05/16/19 at 05:01; Status UNV Albumin Human 250 ml @ 125 mls/hr 1X ONCE IV Last administered on 05/16/19at 05:11; Start 05/16/19 at 05:30; Stop 05/16/19 at 07:29; Status DC Piperacillin Sod/ Tazobactam Sod 2.25 gm/Sodium Chloride 50 ml @ 100 mls/hr Q6HRS IV Last administered on 05/22/19at 06:02; Start 05/16/19 at 13:00; Stop 05/22/19 at 11:04; Status DC Linezolid/Dextrose 300 ml @ 300 mls/hr Q12HR IV Last administered on 05/22/19at 09:01; Start 05/17/19 at 09:00; Stop 05/22/19 at 11:04; Status DC Furosemide (Lasix) 40 mg 1X ONCE IVP Last administered on 05/17/19at 15:47; Start 05/17/19 at 15:45; Stop 05/17/19 at 15:46; Status DC Amino Acids/ Glycerin/ Electrolytes 1,000 ml @ 80 mls/hr [id number] IV Last administered on 05/25/19at 05:41; Start 05/18/19 at 10:00 Aspirin (Ecotrin) 81 mg DAILYWBKFT PO Last administered on 05/23/19at 09:44; Start 05/18/19 at 12:45 Furosemide (Lasix) 40 mg 1X ONCE IVP Last administered on 05/18/19at 15:39; Start 05/18/19 at 15:00; Stop 05/18/19 at 15:01; Status DC Metoprolol Succinate (Toprol Xl) 25 mg DAILY PO Last administered on 05/24/19at 09:00; Start 05/18/19 at 15:00 Insulin Glargine (Lantus Syringe) 12 unit QHS SQ Last administered on 05/20/19at 23:37; Start 05/18/19 at 21:00; Stop 05/21/19 at 09:11; Status DC Insulin Human Lispro (HumaLOG) 0-5 UNITS TIDWMEALS SQ Last administered on 05/20/19at 17:22; Start 05/18/19 at 17:00; Stop 05/21/19 at 09:11; Status DC Dextrose (Dextrose 50%-Water Syringe) 12.5 gm PRN Q15MIN PRN IV SEE COMMENTS; Start 05/18/19 at 17:00; Stop 05/21/19 at 09:12; Status DC Dextrose 250 ml PRN Q15MIN PRN IV SEE COMMENTS; Start 05/18/19 at 17:00; Stop 05/21/19 at 09:12; Status DC Insulin Human Lispro (HumaLOG) 6 units TIDWMEALS SQ Last administered on 05/24/19at 09:29; Start 05/18/19 at 17:00 Buspirone HCl (Buspar) 5 mg BID PO Last administered on 05/24/19at 08:58; Start 05/19/19 at 10:00 Carbidopa/Levodopa (Sinemet Cr) 1 tab.sa TID PO Last administered on 05/24/19at 14:47; Start 05/19/19 at 09:00 Levothyroxine Sodium (Synthroid) 125 mcg DAILY06 PO Last administered on 05/24at 05:08; Start 05/19/19 at 10:30 Polyethylene Glycol (miraLAX PACKET) 17 gm BID PO Last administered on 05/23/19at 21:25; Start 05/19/19 at 09:00 Sevelamer Carbonate (Renvela) 2,400 mg TIDAC PO Last administered on 05/20/19at 09:37; Start 05/19/19 at 11:30; Stop 05/20/19 at 14:10; Status DC Lactobacillus Rhamnosus (Culturelle) 1 cap BID PO Last administered on 05/24/19at 08:59; Start 05/20/19 at 21:00 Insulin Glargine (Lantus Syringe) 15 unit QHS SQ Last administered on 05/24/19at 21:15; Start 05/21/19 at 21:00 Insulin Human Lispro (HumaLOG) 0-9 UNITS TIDWMEALS SQ Last administered on 05/23/19at 11:34; Start 05/21/19 at 09:30 Dextrose (Dextrose 50%-Water Syringe) 12.5 gm PRN Q15MIN PRN IV SEE COMMENTS; Start 05/21/19 at 09:15 Dextrose 250 ml PRN Q15MIN PRN IV SEE COMMENTS; Start 05/21/19 at 09:15 Acetaminophen (Tylenol) 650 mg PRN Q6HRS PRN PO MILD PAIN 1-3; Start 05/21/19 at 09:15 Aspirin (Ecotrin) 81 mg DAILY PO ; Start 05/22/19 at 09:00; Status UNV Bisacodyl (Dulcolax Supp) 10 mg PRN DAILY PRN RC CONSTIPATION; Start 05/21/19 at 09:15 Cyanocobalamin (Vitamin B-12) 1,000 mcg DAILY PO Last administered on 05/24/19at 08:58; Start 05/21/19 at 10:00 Glucose (Insta-Glucose) 15 gm PRN DAILY PRN PO Hypoglycemia; Start 05/21/19 at 09:15 Metolazone (Zaroxolyn) 2.5 mg PRN DAILY PRN PO Weight gain/Fluid gain; Start 05/21/19 at 09:15 Metoprolol Succinate (Toprol Xl) 25 mg DAILY PO ; Start 05/22/19 at 09:00; Status UNV Sodium Monofluorophosphate (Fleet Adult) 133 ml PRN DAILY PRN RC CONSTIPATION; Start 05/21/19 at 09:15 Pantoprazole Sodium (Protonix) 40 mg DAILYAC PO Last administered on 05/24/19at 08:58; Start 05/21/19 at 10:00 Potassium Chloride (Klor-Con) 20 meq PRN DAILY PRN PO IF PRN METOLAZONE GIVEN; Start 05/21/19 at 09:15 Senna/Docusate Sodium (Senna Plus) 1 tab BID PO Last administered on 05/24/19at 08:58; Start 05/21/19 at 10:00 Simethicone (Gas-X) 80 mg PRN Q6HRS PRN PO HEARTBURN / GAS; Start 05/21/19 at 09:15 Torsemide (Demadex) 100 mg BID92 PO Last administered on 05/24/19at 14:48; Start 05/21/19 at 10:00 Trazodone HCl (Desyrel) 100 mg QHS PO Last administered on 05/23/19 21:22; Start 05/21/19 at 21:00 Warfarin Sodium (Coumadin) 2 mg DAILY16 PO ; Start 05/21/19 at 16:00; Stop 05/22/19 at 15:45; Status DC Febuxostat (Uloric) 80 mg DAILY PO Last administered on 05/24/19 08:59; Start 05/21/19 at 10:00 Ferrous Sulfate (Feosol) 325 mg DAILYWBKFT PO Last administered on 05/24/19 08:59; Start 05/21/19 at 10:00 Fluticasone Propionate (Flonase) 2 spray DAILY NS Last administered on 05/23/19 08:57; Start 05/21/19 at 10:00 Lactobacillus Rhamnosus (Culturelle) 1 cap DAILY PO ; Start 05/22/19 at 09:00; Status UNV Non-Formulary Medication (Melatonin ) 2 tab QHS PO ; Start 05/21/19 at 21:00; Status UNV Metolazone (Zaroxolyn) 7.5 mg DAILY PO Last administered on 05/23/19 08:57; Start 05/21/19 at 10:00; Stop 05/23/19 at 11:13; Status DC Potassium Chloride (Klor-Con) 40 meq DAILYWBKFT PO Last administered on 05/24/19at 08:59; Start 05/21/19 at 10:00 Atorvastatin Calcium (Lipitor) 5 mg QHS PO Last administered on 05/23/19at 21:24; Start 05/21/19 at 21:00 Vitamin D (Vitamin D3) 5,000 unit DAILY PO Last administered on 05/24/19at 08 :59; Start 05/21/19 at 10:00 Warfarin Sodium (Coumadin Per Pharmacy) 1 each PRN DAILY PRN MC SEE COMMENTS Last administered on 05/24/19at 09:55; Start 05/21/19 at 09:15 Ondansetron HCl (Zofran) 4 mg PRN Q6HRS PRN IV NAUSEA/VOMITING Last administered on 05/22/19at 23:05; Start 05/21/19 at 11:00 Amoxicillin/ Clavulanate Potassium (Augmentin 875/ 125mg) 1 tab DAILY PO Last administered on 05/24/19at 08:58; Start 05/23/19 at 09:00 Warfarin Sodium (Coumadin) 5 mg 1X WARF ONCE PO ; Start 05/22/19 at 16:00; Stop 05/22/19 at 16:01; Status DC Warfarin Sodium (Coumadin) 5 mg 1X WARF ONCE PO Last administered on 05/23/19at 17:59; Start 05/23/19 at 17:00; Stop 05/23/19 at 17:01; Status DC Warfarin Sodium (Coumadin) 6 mg 1X WARF ONCE PO Last administered on 05/24/19at 21:16; Start 05/24/19 at 16:00; Stop 05/24/19 at 16:01; Status DC Sodium Chloride 1,000 ml @ 75 mls/hr 1X ONCE IV Last administered on 05/24/19at 14:48; Start 05/24/19 at 13:00; Stop 05/25/19 at 02:19; Status DC Hydralazine HCl (Apresoline Inj) 10 mg PRN Q4HRS PRN IVP ELEVATED BP, SEE COMMENTS; Start 05/24/19 at 14:15 Active Scripts Active Novolog Flexpen (Insulin Aspart) 300 Units/3 Ml Insuln.pen 8 Units SQ TIDWMEALS Reported Trazodone Hcl 100 Mg Tablet 1 Tab PO QHS Tramadol Hcl 50 Mg Tablet 50 Mg PO Q8HRS Torsemide 20 Mg Tablet 100 Mg PO BID Temazepam 15 Mg Capsule 1 Cap PO QHS Sinemet Cr 25-100 Tablet (Carbidopa/Levodopa) 1 Each Tablet.er 1 Tab PO TID Simethicone 80 Mg Tab.chew 80 Mg PO PRN Q6HRS PRN Senna Plus 8.6-50 mg Tablet (Sennosides/Docusate Sodium) 1 Each Tablet 1 Each PO BID Renvela (Sevelamer Carbonate) 800 Mg Tablet 3 Tab PO TIDAC Protonix (Pantoprazole Sodium) 40 Mg Tablet.dr 40 Mg PO DAILYAC Pravastatin Sodium 20 Mg Tablet 1 Tab PO HS Potassium Chloride 20 Meq Tablet.er 2 Tab PO DAILY Klor-Con M20 (Potassium Chloride) 20 Meq Tab.er.prt 1 Tab PO PRN DAILY PRN Novolog (Insulin Aspart) 100 Unit/1 Ml Cartridge 8 Unit SQ TIDBFRMEAL NITROGLYCERIN SubLingual (Nitroglycerin) 0.4 Mg Tab.subl 1 Tab SL UD PRN Miralax (Polyethylene Glycol 3350) 17 Gm Powd.pack 1 Packet PO BID Metoprolol Succinate ( Xl ) (Metoprolol Succinate) 25 Mg Tab.er.24h 1 Tab PO DAILY Metolazone 5 Mg Tablet 1.5 Tab PO DAILY Metolazone 2.5 Mg Tablet 2.5 Mg PO PRN DAILY PRN Melatonin 3 Mg Tablet 2 Tab PO QHS Levothyroxine Sodium 125 Mcg Tablet 1 Tab PO DAILY Lantus Solostar (Insulin Glargine,Hum.rec.anlog) 100 Unit/1 Ml Insuln.pen 12 Unit SQ QHS Acidophilus (Lactobacillus Acidophilus) 1 Each Capsule 1 Each PO DAILY Glucose Gel (Dextrose) 38 Gm Gel..gram. 38 Gm PO PRN PRN Gabapentin (Gabapentin) 100 Mg Capsule 100 Mg PO TID Flonase Allergy Relief (Fluticasone Propionate) 9.9 Ml [place].susp 2 Sprays NS DAILY Fleet Enema (Na Phos,M-B/Na Phos,Di-Ba) 133 Ml Enema 133 Ml RC PRN PRN Ferrous Gluconate 240 Mg Tablet 240 Mg PO DAILY Uloric (Febuxostat) 80 Mg Tablet 1 Tab PO DAILY Cymbalta (Duloxetine Hcl) 60 Mg Capsule.dr 1 Cap PO HS Cymbalta (Duloxetine Hcl) 30 Mg Capsule.dr 1 Cap PO DAILY Vitamin B-12 (Cyanocobalamin (Vitamin B-12)) 1,000 Mcg Tablet 1 Tab PO DAILY Coumadin (Warfarin Sodium) 2 Mg Tablet 1 Tab PO DAILY Vitamin D3 (Cholecalciferol (Vitamin D3)) 5,000 Unit Tablet 1 Tab PO DAILY Buspirone Hcl 5 Mg Tablet 1 Tab PO BID Bisacodyl 10 Mg Supp.rect 10 Mg RC PRN DAILY PRN Tylenol (Acetaminophen) 325 Mg Tablet 2 Tab PO PRN Q6HRS PRN Sertraline Hcl 100 Mg Tablet 100 Mg PO DAILY Aspir 81 (Aspirin) 81 Mg Tablet. 1 Tab PO DAILY Vitals/I & O Vital Sign - Last 24 Hours 05/24/19 05/24/19 05/24/19 05/24/19 07:37 08:00 09:00 11:22 Temp 98.6 98.8 98.6 98.8 Pulse 70 70 70 Resp 16 20 B/P (MAP) 143/62 (89) 143/62 184/56 (98) Pulse Ox 97 98 O2 Delivery Room Air Room Air Room Air 05/24/19 05/24/19 05/24/19 05/24/19 12:57 15:00 18:04 23:00 Temp 97.8 98.2 97.9 97.8 98.2 97.9 Pulse 70 64 69 70 Resp 18 20 18 B/P (MAP) 194/80 (118) 155/35 (75) 147/43 (77) 133/66 (88) Pulse Ox 99 O2 Delivery Room Air Room Air Room Air O2 Flow Rate 3.0 05/25/19 03:32 Temp 98.2 98.2 Pulse 70 Resp 16 B/P (MAP) 126/34 (64) Pulse Ox 93 O2 Delivery Room Air Intake and Output 05/24/19 05/24/19 05/25/19 15:00 23:00 07:00 Intake Total 120 ml Output Total 1350 ml 950 ml 1800 ml Balance -1230 ml -950 ml -1800 ml SCOTT VASQUEZ MD May 25, 2019 07:27
[2019-05-25 07:50] VITALS: BP 149/43
[2019-05-25] MEDS: INSULIN LISPRO 300 UNITS/3 ML VIAL. SQ SCH ×6 (08:00→17:19)
--- NOTE | 2019-05-25 08:52 | PDOC ---
Infectious Disease Note Subjective Subjective feeling ok ROS ROS no n/v/d/ Vital Sign Vital Signs Vital Signs Date Time Temp Pulse Resp B/P (MAP) Pulse Ox O2 Delivery O2 Flow Rate FiO2 05/25/19 07:50 98.0 69 20 149/43 (78) 99 Room Air 98.0 05/24/19 23:00 3.0 Physical Exam PHYSICAL EXAM GENERAL: awake HEENT: OC/OP- clean NECK: Supple. HEART: S1, S2 with a 2/6 murmur. Pacemaker ABDOMEN: Soft, nontender. No guarding. GENITOURINARY: Garcia in place. EXTREMITIES: Bilateral lower extremity BKAs Mild RUE erythema and dryness SKIN: warm to touch NEUROLOGIC: Nonverbal RIJ clean Labs Lab Laboratory Tests Test 05/24/19 10:55 05/24/19 16:41 05/24/19 18:01 05/24/19 20:39 Glucose (Fingerstick) 115 mg/dL (70-99) 91 mg/dL (70-99) 102 mg/dL (70-99) 100 mg/dL (70-99) Test 05/25/19 04:10 05/25/19 05:50 05/25/19 07:13 Glucose (Fingerstick) 93 mg/dL (70-99) 93 mg/dL (70-99) White Blood Count 7.3 x10^3/uL (4.0-11.0) Red Blood Count 2.51 x10^6/uL (4.30-5.70) Hemoglobin 7.1 g/dL (13.0-17.5) Hematocrit 21.6 % (39.0-53.0) Mean Corpuscular Volume 86 fL (79-100) Mean Corpuscular Hemoglobin 28 pg (25-35) Mean Corpuscular Hemoglobin Concent 33 g/dL (31-37) Red Cell Distribution Width 21.6 % (11.5-14.5) Platelet Count 154 x10^3/uL (140-400) Neutrophils (%) (Auto) 73 % (31-73) Lymphocytes (%) (Auto) 10 % (24-48) Monocytes (%) (Auto) 8 % (0-9) Eosinophils (%) (Auto) 8 % (0-3) Basophils (%) (Auto) 0 % (0-3) Neutrophils # (Auto) 5.3 x10^3/uL (1.8-7.7) Lymphocytes # (Auto) 0.8 x10^3/uL (1.0-4.8) Monocytes # (Auto) 0.6 x10^3/uL (0.0-1.1) Eosinophils # (Auto) 0.5 x10^3/uL (0.0-0.7) Basophils # (Auto) 0.0 x10^3/uL (0.0-0.2) Prothrombin Time 15.1 SEC (11.7-14.0) Prothromb Time International Ratio 1.2 (0.8-1.1) Sodium Level 135 mmol/L (136-145) Potassium Level 3.8 mmol/L (3.5-5.1) Chloride Level 97 mmol/L (98-107) Carbon Dioxide Level 29 mmol/L (21-32) Anion Gap 9 (6-14) Blood Urea Nitrogen 104 mg/dL (8-26) Creatinine 2.6 mg/dL (0.7-1.3) Estimated GFR (Cockcroft-Gault) 24.0 Glucose Level 94 mg/dL (70-99) Calcium Level 8.8 mg/dL (8.5-10.1) Micro Microbiology 05/16/19 Blood Culture - Preliminary, Resulted NO GROWTH AFTER 4 DAYS Objective Assessment Sepsis POA - fever/Hypotension/pneumonia/Encephalopathy/ABBY. Elevated Procalcitonin but ? reliability in renal failure RUE ? cellulitis Pneumonia ABBY on CKD Cephalexin allergy but has tolerated Zosyn/Meropenem in past Leukocytosis - better L max ? sinusitis Afib Cerebellar infarct - ? age Cardiomyopathy with pacemaker Plan Plan of Care po augmentin x 5 days d/c to [place] d/c cvline ZULMA NICHOLS MD May 25, 2019 08:52
[2019-05-25] MEDS: POLYETHYLENE GLYCOL 3350 17 GM PACKET. PO SCH ×2 (09:00→21:39)
[2019-05-25] MEDS: LEVOTHYROXINE 125 MCG TABLET PO SCH (09:04)
[2019-05-25] MEDS: PANTOPRAZOLE 40 MG TABLET.DR. PO SCH (09:04)
[2019-05-25] MEDS: ASPIRIN ENTERIC COATED 81 MG TABLET.DR. PO SCH (09:05)
[2019-05-25] MEDS: FERROUS SULFATE 325 MG TABLET. PO SCH (09:05)
[2019-05-25] MEDS: CARBIDOPA/LEVODOPA CR 25/100MG TABLET.SA. PO SCH ×3 (09:06→22:04)
[2019-05-25] MEDS: CYANOCOBALAMIN (VITAMIN B-12) 1,000 MCG TABLET. PO SCH (09:06)
[2019-05-25] MEDS: busPIRone 5 MG TABLET. PO SCH ×2 (09:06→22:03)
[2019-05-25] MEDS: LACTOBACILLUS RHAMNOSUS GG 1 CAPSULE. PO SCH ×2 (09:06→22:05)
[2019-05-25] MEDS: CHOLECALCIFEROL (VITAMIN D3) 5,000 UNIT CAPSULE PO SCH (09:06)
[2019-05-25] MEDS: FEBUXOSTAT 40 MG TABLET PO SCH (09:07)
[2019-05-25] MEDS: AMOXICILLIN/K CLAV 875/125MG TABLET. PO SCH (09:07)
[2019-05-25] MEDS: SENNOSIDES/DOCUSATE 8.6/50MG TABLET. PO SCH ×2 (09:07→22:04)
[2019-05-25] MEDS: METOPROLOL SUCC 24HR ER 25 MG TAB.ER.24H. PO SCH (09:08)
[2019-05-25] MEDS: TORSEMIDE 20 MG TABLET. PO SCH (09:08)
[2019-05-25] MEDS: POTASSIUM CHLORIDE 20 MEQ TABLET.ER. PO SCH (09:14)
[2019-05-25] MEDS: FLUTICASONE 50MCG/NASAL SPRAY 16GM BOTTLE. NS SCH (09:14)
--- NOTE | 2019-05-25 11:29 | PDOC ---
PROGRESS NOTES Assessment Problems Medical Problems: (1) Acute kidney injury superimposed on CKD Status: Acute (2) Acute on chronic combined systolic (congestive) and diastolic (congestive) heart failure Status: Acute (3) Acute respiratory failure Status: Acute (4) Acute respiratory failure with hypoxia Status: Acute (5) ABBY (acute kidney injury) Status: Acute (6) CAD (coronary artery disease) Status: Chronic (7) Chronic a-fib Status: Chronic (8) Chronic kidney disease, stage 4 (severe) Status: Acute (9) CKD (chronic kidney disease), stage III Status: Chronic (10) CVA (cerebral vascular accident) Status: Acute (11) DM2 (diabetes mellitus, type 2) Status: Chronic (12) Dyspnea Status: Acute (13) HCAP (healthcare-associated pneumonia) Status: Acute (14) Metabolic encephalopathy Status: Acute (15) Pleural effusion on left Status: Acute (16) Pleural effusion, left Status: Acute (17) Pulmonary edema Status: Acute (18) Sepsis Status: Acute (19) Severe sepsis Status: Acute etabolic encephalopathy related to sepsis. Cerebellar infarct, As follow-up CT shows some evolution, this is a subacute infarct, still, not clinically relevant or cause of his encephalopathy Plan Hold on aspirin, is on warfarin for afib Discharge any time Subjective no complaints Objective Vital Signs Date Time Temp Pulse Resp B/P (MAP) Pulse Ox O2 Delivery O2 Flow Rate FiO2 05/25/19 09:08 69 149/43 05/25/19 08:00 Room Air 05/25/19 07:50 98.0 20 99 98.0 05/24/19 23:00 3.0 Intake and Output 05/25/19 06:59 Intake Total 120 ml Output Total 4100 ml Balance -3980 ml Intake Oral 120 ml Output Urine Total 4100 ml PHYSICAL EXAM Alert. Oriented to "hospital" and person. PERRL. EOMI. CN: no focal findings. Muscle tone: normal. Muscle strength: 4/5 DTR: 2+ Plantar reflex: bilateral BKA's Gait: not examined in bed. Sensory exam: no abnormal findings. Automatisms or stenotypy of left arm, voluntary tremor which he can suppress Review of Relevant I have reviewed the following items nestor (where applicable) has been applied. Labs Laboratory Tests Test 05/23/19 17:08 05/23/19 20:49 05/24/19 05:15 05/24/19 07:13 Glucose (Fingerstick) 125 mg/dL (70-99) 173 mg/dL (70-99) 159 mg/dL (70-99) Prothrombin Time 14.9 SEC (11.7-14.0) Prothromb Time International Ratio 1.2 (0.8-1.1) Sodium Level 135 mmol/L (136-145) Potassium Level 4.3 mmol/L (3.5-5.1) Chloride Level 99 mmol/L (98-107) Carbon Dioxide Level 28 mmol/L (21-32) Anion Gap 8 (6-14) Blood Urea Nitrogen 105 mg/dL (8-26) Creatinine 2.8 mg/dL (0.7-1.3) Estimated GFR (Cockcroft-Gault) 22.0 Glucose Level 177 mg/dL (70-99) Calcium Level 8.8 mg/dL (8.5-10.1) Test 05/24/19 10:55 05/24/19 16:41 05/24/19 18:01 05/24/19 20:39 Glucose (Fingerstick) 115 mg/dL (70-99) 91 mg/dL (70-99) 102 mg/dL (70-99) 100 mg/dL (70-99) Test 05/25/19 04:10 05/25/19 05:50 05/25/19 07:13 Glucose (Fingerstick) 93 mg/dL (70-99) 93 mg/dL (70-99) White Blood Count 7.3 x10^3/uL (4.0-11.0) Red Blood Count 2.51 x10^6/uL (4.30-5.70) Hemoglobin 7.1 g/dL (13.0-17.5) Hematocrit 21.6 % (39.0-53.0) Mean Corpuscular Volume 86 fL (79-100) Mean Corpuscular Hemoglobin 28 pg (25-35) Mean Corpuscular Hemoglobin Concent 33 g/dL (31-37) Red Cell Distribution Width 21.6 % (11.5-14.5) Platelet Count 154 x10^3/uL (140-400) Neutrophils (%) (Auto) 73 % (31-73) Lymphocytes (%) (Auto) 10 % (24-48) Monocytes (%) (Auto) 8 % (0-9) Eosinophils (%) (Auto) 8 % (0-3) Basophils (%) (Auto) 0 % (0-3) Neutrophils # (Auto) 5.3 x10^3/uL (1.8-7.7) Lymphocytes # (Auto) 0.8 x10^3/uL (1.0-4.8) Monocytes # (Auto) 0.6 x10^3/uL (0.0-1.1) Eosinophils # (Auto) 0.5 x10^3/uL (0.0-0.7) Basophils # (Auto) 0.0 x10^3/uL (0.0-0.2) Prothrombin Time 15.1 SEC (11.7-14.0) Prothromb Time International Ratio 1.2 (0.8-1.1) Sodium Level 135 mmol/L (136-145) Potassium Level 3.8 mmol/L (3.5-5.1) Chloride Level 97 mmol/L (98-107) Carbon Dioxide Level 29 mmol/L (21-32) Anion Gap 9 (6-14) Blood Urea Nitrogen 104 mg/dL (8-26) Creatinine 2.6 mg/dL (0.7-1.3) Estimated GFR (Cockcroft-Gault) 24.0 Glucose Level 94 mg/dL (70-99) Calcium Level 8.8 mg/dL (8.5-10.1) Laboratory Tests Test 05/24/19 16:41 05/24/19 18:01 05/24/19 20:39 05/25/19 04:10 Glucose (Fingerstick) 91 mg/dL (70-99) 102 mg/dL (70-99) 100 mg/dL (70-99) 93 mg/dL (70-99) Test 05/25/19 05:50 05/25/19 07:13 White Blood Count 7.3 x10^3/uL (4.0-11.0) Red Blood Count 2.51 x10^6/uL (4.30-5.70) Hemoglobin 7.1 g/dL (13.0-17.5) Hematocrit 21.6 % (39.0-53.0) Mean Corpuscular Volume 86 fL (79-100) Mean Corpuscular Hemoglobin 28 pg (25-35) Mean Corpuscular Hemoglobin Concent 33 g/dL (31-37) Red Cell Distribution Width 21.6 % (11.5-14.5) Platelet Count 154 x10^3/uL (140-400) Neutrophils (%) (Auto) 73 % (31-73) Lymphocytes (%) (Auto) 10 % (24-48) Monocytes (%) (Auto) 8 % (0-9) Eosinophils (%) (Auto) 8 % (0-3) Basophils (%) (Auto) 0 % (0-3) Neutrophils # (Auto) 5.3 x10^3/uL (1.8-7.7) Lymphocytes # (Auto) 0.8 x10^3/uL (1.0-4.8) Monocytes # (Auto) 0.6 x10^3/uL (0.0-1.1) Eosinophils # (Auto) 0.5 x10^3/uL (0.0-0.7) Basophils # (Auto) 0.0 x10^3/uL (0.0-0.2) Prothrombin Time 15.1 SEC (11.7-14.0) Prothromb Time International Ratio 1.2 (0.8-1.1) Sodium Level 135 mmol/L (136-145) Potassium Level 3.8 mmol/L (3.5-5.1) Chloride Level 97 mmol/L (98-107) Carbon Dioxide Level 29 mmol/L (21-32) Anion Gap 9 (6-14) Blood Urea Nitrogen 104 mg/dL (8-26) Creatinine 2.6 mg/dL (0.7-1.3) Estimated GFR (Cockcroft-Gault) 24.0 Glucose Level 94 mg/dL (70-99) Calcium Level 8.8 mg/dL (8.5-10.1) Glucose (Fingerstick) 93 mg/dL (70-99) Microbiology 05/16/19 Blood Culture - Final, Complete NO GROWTH AFTER 5 DAYS Medications Current Medications Vancomycin HCl (Vanco Per Pharmacy) 1 each PRN DAILY PRN MC SEE COMMENTS Last administered on 05/16/19at 02:12; Start 05/15/19 at 23:00; Stop 05/17/19 at 06:52; Status DC Levofloxacin/ Dextrose 150 ml @ 100 mls/hr 1X ONCE IV Last administered on 05/16/19at 00:17; Start 05/15/19 at 23:30; Stop 05/16/19 at 00:59; Status DC Sodium Chloride 1,000 ml @ 1,000 mls/hr 1X ONCE IV ; Start 05/15/19 at 23:30; Stop 05/16/19 at 00:29; Status DC Sodium Chloride 1,000 ml @ 1,000 mls/hr 1X ONCE IV Last administered on 05/16/19at 00:17; Start 05/15/19 at 23:30; Stop 05/16/19 at 00:29; Status DC Sodium Chloride 1,000 ml @ 1,000 mls/hr 1X ONCE IV Last administered on 05/16/19at 00:17; Start 05/15/19 at 23:30; Stop 05/16/19 at 00:29; Status DC Vancomycin HCl 2 gm/Sodium Chloride 500 ml @ 250 mls/hr 1X ONCE IV Last administered on 05/16/19at 00:15; Start 05/16/19 at 00:00; Stop 05/16/19 at 01:59; Status DC Ondansetron HCl (Zofran) 4 mg PRN Q8HRS PRN IV NAUSEA/VOMITING 1ST CHOICE; Start 05/16/19 at 01:45; Stop 05/17/19 at 01:44; Status DC Vancomycin HCl 1.25 gm/Sodium Chloride 250 ml @ 167 mls/hr Q48H IV ; Start 05/18/19 at 00:00; Stop 05/17/19 at 06:52; Status DC Vancomycin HCl (Vancomycin Trough Level) 1 each 1X ONCE MC ; Start 05/19/19 at 23:30; Stop 05/17/19 at 07:19; Status DC Albumin Human 100 ml @ 100 mls/hr 1X ONCE IV Last administered on 05/16/19at 04:14; Start 05/16/19 at 04:30; Stop 05/16/19 at 05:29; Status DC Norepinephrine Bitartrate 250 ml @ 17.031 mls/ hr CONT PRN IV SEE I/O RECORD Last administered on 05/16/19at 04:21; Start 05/16/19 at 04:00; Stop 05/19/19 at 08:36; Status DC Info (FLU VACCINE SCREEN per RX) 1 each 1X ONCE MC ; Start 05/16/19 at 05:00; Stop 05/16/19 at 05:01; Status UNV Albumin Human 250 ml @ 125 mls/hr 1X ONCE IV Last administered on 05/16/19at 05:11; Start 05/16/19 at 05:30; Stop 05/16/19 at 07:29; Status DC Piperacillin Sod/ Tazobactam Sod 2.25 gm/Sodium Chloride 50 ml @ 100 mls/hr Q6HRS IV Last administered on 05/22/19at 06:02; Start 05/16/19 at 13:00; Stop 05/22/19 at 11:04; Status DC Linezolid/Dextrose 300 ml @ 300 mls/hr Q12HR IV Last administered on 05/22/19at 09:01; Start 05/17/19 at 09:00; Stop 05/22/19 at 11:04; Status DC Furosemide (Lasix) 40 mg 1X ONCE IVP Last administered on 05/17/19at 15:47; Start 05/17/19 at 15:45; Stop 05/17/19 at 15:46; Status DC Amino Acids/ Glycerin/ Electrolytes 1,000 ml @ 80 mls/hr [id number] IV Last administered on 05/25/19at 05:41; Start 05/18/19 at 10:00 Aspirin (Ecotrin) 81 mg DAILYWBKFT PO Last administered on 05/25/19at 09:05; Start 05/18/19 at 12:45 Furosemide (Lasix) 40 mg 1X ONCE IVP Last administered on 05/18/19at 15:39; Start 05/18/19 at 15:00; Stop 05/18/19 at 15:01; Status DC Metoprolol Succinate (Toprol Xl) 25 mg DAILY PO Last administered on 05/25/19at 09:08; Start 05/18/19 at 15:00 Insulin Glargine (Lantus Syringe) 12 unit QHS SQ Last administered on 05/20/19at 23:37; Start 05/18/19 at 21:00; Stop 05/21/19 at 09:11; Status DC Insulin Human Lispro (HumaLOG) 0-5 UNITS TIDWMEALS SQ Last administered on 05/20/19at 17:22; Start 05/18/19 at 17:00; Stop 05/21/19 at 09:11; Status DC Dextrose (Dextrose 50%-Water Syringe) 12.5 gm PRN Q15MIN PRN IV SEE COMMENTS; Start 05/18/19 at 17:00; Stop 05/21/19 at 09:12; Status DC Dextrose 250 ml PRN Q15MIN PRN IV SEE COMMENTS; Start 05/18/19 at 17:00; Stop 05/21/19 at 09:12; Status DC Insulin Human Lispro (HumaLOG) 6 units TIDWMEALS SQ Last administered on 05/24/19at 09:29; Start 05/18/19 at 17:00 Buspirone HCl (Buspar) 5 mg BID PO Last administered on 05/25/19at 09:06; Start 05/19/19 at 10:00 Carbidopa/Levodopa (Sinemet Cr) 1 tab.sa TID PO Last administered on 05/25/19at 09:06; Start 05/19/19 at 09:00 Levothyroxine Sodium (Synthroid) 125 mcg DAILY06 PO Last administered on 05/25/19at 09:04; Start 05/19/19 at 10:30 Polyethylene Glycol (miraLAX PACKET) 17 gm BID PO Last administered on 05/23/19at 21:25; Start 05/19/19 at 09:00 Sevelamer Carbonate (Renvela) 2,400 mg TIDAC PO Last administered on 05/20/19at 09:37; Start 05/19/19 at 11:30; Stop 05/20/19 at 14:10; Status DC Lactobacillus Rhamnosus (Culturelle) 1 cap BID PO Last administered on 05/25/19at 09:06; Start 05/20/19 at 21:00 Insulin Glargine (Lantus Syringe) 15 unit QHS SQ Last administered on 05/24/19at 21:15; Start 05/21/19 at 21:00 Insulin Human Lispro (HumaLOG) 0-9 UNITS TIDWMEALS SQ Last administered on 05/23at 11:34; Start 05/21/19 at 09:30 Dextrose (Dextrose 50%-Water Syringe) 12.5 gm PRN Q15MIN PRN IV SEE COMMENTS; Start 05/21/19 at 09:15 Dextrose 250 ml PRN Q15MIN PRN IV SEE COMMENTS; Start 05/21/19 at 09:15 Acetaminophen (Tylenol) 650 mg PRN Q6HRS PRN PO MILD PAIN 1-3; Start 05/21/19 at 09:15 Aspirin (Ecotrin) 81 mg DAILY PO ; Start 05/22/19 at 09:00; Status UNV Bisacodyl (Dulcolax Supp) 10 mg PRN DAILY PRN RC CONSTIPATION; Start 05/21/19 at 09:15 Cyanocobalamin (Vitamin B-12) 1,000 mcg DAILY PO Last administered on 05/25/19at 09:06; Start 05/21/19 at 10:00 Glucose (Insta-Glucose) 15 gm PRN DAILY PRN PO Hypoglycemia; Start 05/21/19 at 09:15 Metolazone (Zaroxolyn) 2.5 mg PRN DAILY PRN PO Weight gain/Fluid gain; Start 05/21/19 at 09:15 Metoprolol Succinate (Toprol Xl) 25 mg DAILY PO ; Start 05/22/19 at 09:00; Status UNV Sodium Monofluorophosphate (Fleet Adult) 133 ml PRN DAILY PRN RC CONSTIPATION; Start 05/21/19 at 09:15 Pantoprazole Sodium (Protonix) 40 mg DAILYAC PO Last administered on 05/25/19at 09:04; Start 05/21/19 at 10:00 Potassium Chloride (Klor-Con) 20 meq PRN DAILY PRN PO IF PRN METOLAZONE GIVEN; Start 05/21/19 at 09:15 Senna/Docusate Sodium (Senna Plus) 1 tab BID PO Last administered on 05/25/19at 09:07; Start 05/21/19 at 10:00 Simethicone (Gas-X) 80 mg PRN Q6HRS PRN PO HEARTBURN / GAS; Start 05/21/19 at 09:15 Torsemide (Demadex) 100 mg BID92 PO Last administered on 05/25/19at 09:08; Start 05/21/19 at 10:00 Trazodone HCl (Desyrel) 100 mg QHS PO Last administered on 05/23/19at 21:22; St art 05/21/19 at 21:00 Warfarin Sodium (Coumadin) 2 mg DAILY16 PO ; Start 05/21/19 at 16:00; Stop 05/22/19 at 15:45; Status DC Febuxostat (Uloric) 80 mg DAILY PO Last administered on 05/25/19 09:07; Start 05/21/19 at 10:00 Ferrous Sulfate (Feosol) 325 mg DAILYWBKFT PO Last administered on 05/25/19 09:05; Start 05/21/19 at 10:00 Fluticasone Propionate (Flonase) 2 spray DAILY NS Last administered on 05/25/19 09:14; Start 05/21/19 at 10:00 Lactobacillus Rhamnosus (Culturelle) 1 cap DAILY PO ; Start 05/22/19 at 09:00; Status UNV Non-Formulary Medication (Melatonin ) 2 tab QHS PO ; Start 05/21/19 at 21:00; Status UNV Metolazone (Zaroxolyn) 7.5 mg DAILY PO Last administered on 05/23/19at 08:57; Start 05/21/19 at 10:00; Stop 05/23/19 at 11:13; Status DC Potassium Chloride (Klor-Con) 40 meq DAILYWBKFT PO Last administered on 05/25/19 09:14; Start 05/21/19 at 10:00 Atorvastatin Calcium (Lipitor) 5 mg QHS PO Last administered on 05/23/19 21:24; Start 05/21/19 at 21:00 Vitamin D (Vitamin D3) 5,000 unit DAILY PO Last administered on 05/25/19 09:06; Start 05/21/19 at 10:00 Warfarin Sodium (Coumadin Per Pharmacy) 1 each PRN DAILY PRN MC SEE COMMENTS Last administered on 05/25/19 11:24; Start 05/21/19 at 09:15 Ondansetron HCl (Zofran) 4 mg PRN Q6HRS PRN IV NAUSEA/VOMITING Last administered on 05/22/19at 23:05; Start 05/21/19 at 11:00 Amoxicillin/ Clavulanate Potassium (Augmentin 875/ 125mg) 1 tab DAILY PO Last administered on 05/25/19at 09:07; Start 05/23/19 at 09:00 Warfarin Sodium (Coumadin) 5 mg 1X WARF ONCE PO ; Start 05/22/19 at 16:00; Stop 05/22/19 at 16:01; Status DC Warfarin Sodium (Coumadin) 5 mg 1X WARF ONCE PO Last administered on 05/23/19at 17:59; Start 05/23/19 at 17:00; Stop 05/23/19 at 17:01; Status DC Warfarin Sodium (Coumadin) 6 mg 1X WARF ONCE PO Last administered on 05/24/19at 21:16; Start 05/24/19 at 16:00; Stop 05/24/19 at 16:01; Status DC Sodium Chloride 1,000 ml @ 75 mls/hr 1X ONCE IV Last administered on 05/24/19at 14:48; Start 05/24/19 at 13:00; Stop 05/25/19 at 02:19; Status DC Hydralazine HCl (Apresoline Inj) 10 mg PRN Q4HRS PRN IVP ELEVATED BP, SEE COMMENTS; Start 05/24/19 at 14:15 Warfarin Sodium (Coumadin) 7.5 mg 1X WARF ONCE PO ; Start 05/25/19 at 16:00; Stop 05/25/19 at 16:01 Active Scripts Active Novolog Flexpen (Insulin Aspart) 300 Units/3 Ml Insuln.pen 8 Units SQ TIDWMEALS Reported Trazodone Hcl 100 Mg Tablet 1 Tab PO QHS Tramadol Hcl 50 Mg Tablet 50 Mg PO Q8HRS Torsemide 20 Mg Tablet 100 Mg PO BID Temazepam 15 Mg Capsule 1 Cap PO QHS Sinemet Cr 25-100 Tablet (Carbidopa/Levodopa) 1 Each Tablet.er 1 Tab PO TID Simethicone 80 Mg Tab.chew 80 Mg PO PRN Q6HRS PRN Senna Plus 8.6-50 mg Tablet (Sennosides/Docusate Sodium) 1 Each Tablet 1 Each PO BID Renvela (Sevelamer Carbonate) 800 Mg Tablet 3 Tab PO TIDAC Protonix (Pantoprazole Sodium) 40 Mg Tablet.dr 40 Mg PO DAILYAC Pravastatin Sodium 20 Mg Tablet 1 Tab PO HS Potassium Chloride 20 Meq Tablet.er 2 Tab PO DAILY Klor-Con M20 (Potassium Chloride) 20 Meq Tab.er.prt 1 Tab PO PRN DAILY PRN Novolog (Insulin Aspart) 100 Unit/1 Ml Cartridge 8 Unit SQ TIDBFRMEAL NITROGLYCERIN SubLingual (Nitroglycerin) 0.4 Mg Tab.subl 1 Tab SL UD PRN Miralax (Polyethylene Glycol 3350) 17 Gm Powd.pack 1 Packet PO BID Metoprolol Succinate ( Xl ) (Metoprolol Succinate) 25 Mg Tab.er.24h 1 Tab PO DAILY Metolazone 5 Mg Tablet 1.5 Tab PO DAILY Metolazone 2.5 Mg Tablet 2.5 Mg PO PRN DAILY PRN Melatonin 3 Mg Tablet 2 Tab PO QHS Levothyroxine Sodium 125 Mcg Tablet 1 Tab PO DAILY Lantus Solostar (Insulin Glargine,Hum.rec.anlog) 100 Unit/1 Ml Insuln.pen 12 Unit SQ QHS Acidophilus (Lactobacillus Acidophilus) 1 Each Capsule 1 Each PO DAILY Glucose Gel (Dextrose) 38 Gm Gel..gram. 38 Gm PO PRN PRN Gabapentin (Gabapentin) 100 Mg Capsule 100 Mg PO TID Flonase Allergy Relief (Fluticasone Propionate) 9.9 Ml [place].susp 2 Sprays NS DAILY Fleet Enema (Na Phos,M-B/Na Phos,Di-Ba) 133 Ml Enema 133 Ml RC PRN PRN Ferrous Gluconate 240 Mg Tablet 240 Mg PO DAILY Uloric (Febuxostat) 80 Mg Tablet 1 Tab PO DAILY Cymbalta (Duloxetine Hcl) 60 Mg Capsule. 1 Cap PO HS Cymbalta (Duloxetine Hcl) 30 Mg Capsule.dr 1 Cap PO DAILY Vitamin B-12 (Cyanocobalamin (Vitamin B-12)) 1,000 Mcg Tablet 1 Tab PO DAILY Coumadin (Warfarin Sodium) 2 Mg Tablet 1 Tab PO DAILY Vitamin D3 (Cholecalciferol (Vitamin D3)) 5,000 Unit Tablet 1 Tab PO DAILY Buspirone Hcl 5 Mg Tablet 1 Tab PO BID Bisacodyl 10 Mg Supp.rect 10 Mg RC PRN DAILY PRN Tylenol (Acetaminophen) 325 Mg Tablet 2 Tab PO PRN Q6HRS PRN Sertraline Hcl 100 Mg Tablet 100 Mg PO DAILY Aspir 81 (Aspirin) 81 Mg Tablet. 1 Tab PO DAILY Vitals/I & O Vital Sign - Last 24 Hours 05/24/19 05/24/19 05/24/19 05/24/19 12:57 15:00 18:04 23:00 Temp 97.8 98.2 97.9 97.8 98.2 97.9 Pulse 70 64 69 70 Resp 18 20 18 B/P (MAP) 194/80 (118) 155/35 (75) 147/43 (77) 133/66 (88) Pulse Ox 99 O2 Delivery Room Air Room Air Room Air O2 Flow Rate 3.0 05/25/19 05/25/19 05/25/19 05/25/19 03:32 07:50 08:00 09:08 Temp 98.2 98.0 98.2 98.0 Pulse 70 69 69 Resp 16 20 B/P (MAP) 126/34 (64) 149/43 (78) 149/43 Pulse Ox 93 99 O2 Delivery Room Air Room Air Room Air Intake and Output 05/24/19 05/24/19 05/25/19 14:59 22:59 06:59 Intake Total 120 ml Output Total 1350 ml 950 ml 1800 ml Balance -1230 ml -950 ml -1800 ml STEPHANIE DUKE MD May 25, 2019 11:29
--- NOTE | 2019-05-25 11:34 | PDOC ---
PULMONARY PROGRESS NOTES Subjective remains on room air, no soa Vitals Vital Signs Date Time Temp Pulse Resp B/P (MAP) Pulse Ox O2 Delivery O2 Flow Rate FiO2 05/25/19 09:08 69 149/43 05/25/19 08:00 Room Air 05/25/19 07:50 98.0 20 99 98.0 05/24/19 23:00 3.0 ROS: No Increase Cough General: Alert, No acute distress Lungs: Other (decrease left base) Cardiovascular: S1, S2 Abdomen: Soft, Non-tender Neuro Exam: Alert Extremities: Other (bka) Skin: Other (BLE BKA) Labs Laboratory Tests Test 05/23/19 17:08 05/23/19 20:49 05/24/19 05:15 05/24/19 07:13 Glucose (Fingerstick) 125 mg/dL (70-99) 173 mg/dL (70-99) 159 mg/dL (70-99) Prothrombin Time 14.9 SEC (11.7-14.0) Prothromb Time International Ratio 1.2 (0.8-1.1) Sodium Level 135 mmol/L (136-145) Potassium Level 4.3 mmol/L (3.5-5.1) Chloride Level 99 mmol/L (98-107) Carbon Dioxide Level 28 mmol/L (21-32) Anion Gap 8 (6-14) Blood Urea Nitrogen 105 mg/dL (8-26) Creatinine 2.8 mg/dL (0.7-1.3) Estimated GFR (Cockcroft-Gault) 22.0 Glucose Level 177 mg/dL (70-99) Calcium Level 8.8 mg/dL (8.5-10.1) Test 05/24/19 10:55 05/24/19 16:41 05/24/19 18:01 05/24/19 20:39 Glucose (Fingerstick) 115 mg/dL (70-99) 91 mg/dL (70-99) 102 mg/dL (70-99) 100 mg/dL (70-99) Test 05/25/19 04:10 05/25/19 05:50 05/25/19 07:13 Glucose (Fingerstick) 93 mg/dL (70-99) 93 mg/dL (70-99) White Blood Count 7.3 x10^3/uL (4.0-11.0) Red Blood Count 2.51 x10^6/uL (4.30-5.70) Hemoglobin 7.1 g/dL (13.0-17.5) Hematocrit 21.6 % (39.0-53.0) Mean Corpuscular Volume 86 fL (79-100) Mean Corpuscular Hemoglobin 28 pg (25-35) Mean Corpuscular Hemoglobin Concent 33 g/dL (31-37) Red Cell Distribution Width 21.6 % (11.5-14.5) Platelet Count 154 x10^3/uL (140-400) Neutrophils (%) (Auto) 73 % (31-73) Lymphocytes (%) (Auto) 10 % (24-48) Monocytes (%) (Auto) 8 % (0-9) Eosinophils (%) (Auto) 8 % (0-3) Basophils (%) (Auto) 0 % (0-3) Neutrophils # (Auto) 5.3 x10^3/uL (1.8-7.7) Lymphocytes # (Auto) 0.8 x10^3/uL (1.0-4.8) Monocytes # (Auto) 0.6 x10^3/uL (0.0-1.1) Eosinophils # (Auto) 0.5 x10^3/uL (0.0-0.7) Basophils # (Auto) 0.0 x10^3/uL (0.0-0.2) Prothrombin Time 15.1 SEC (11.7-14.0) Prothromb Time International Ratio 1.2 (0.8-1.1) Sodium Level 135 mmol/L (136-145) Potassium Level 3.8 mmol/L (3.5-5.1) Chloride Level 97 mmol/L (98-107) Carbon Dioxide Level 29 mmol/L (21-32) Anion Gap 9 (6-14) Blood Urea Nitrogen 104 mg/dL (8-26) Creatinine 2.6 mg/dL (0.7-1.3) Estimated GFR (Cockcroft-Gault) 24.0 Glucose Level 94 mg/dL (70-99) Calcium Level 8.8 mg/dL (8.5-10.1) Laboratory Tests Test 05/24/19 16:41 05/24/19 18:01 05/24/19 20:39 05/25/19 04:10 Glucose (Fingerstick) 91 mg/dL (70-99) 102 mg/dL (70-99) 100 mg/dL (70-99) 93 mg/dL (70-99) Test 05/25/19 05:50 05/25/19 07:13 White Blood Count 7.3 x10^3/uL (4.0-11.0) Red Blood Count 2.51 x10^6/uL (4.30-5.70) Hemoglobin 7.1 g/dL (13.0-17.5) Hematocrit 21.6 % (39.0-53.0) Mean Corpuscular Volume 86 fL (79-100) Mean Corpuscular Hemoglobin 28 pg (25-35) Mean Corpuscular Hemoglobin Concent 33 g/dL (31-37) Red Cell Distribution Width 21.6 % (11.5-14.5) Platelet Count 154 x10^3/uL (140-400) Neutrophils (%) (Auto) 73 % (31-73) Lymphocytes (%) (Auto) 10 % (24-48) Monocytes (%) (Auto) 8 % (0-9) Eosinophils (%) (Auto) 8 % (0-3) Basophils (%) (Auto) 0 % (0-3) Neutrophils # (Auto) 5.3 x10^3/uL (1.8-7.7) Lymphocytes # (Auto) 0.8 x10^3/uL (1.0-4.8) Monocytes # (Auto) 0.6 x10^3/uL (0.0-1.1) Eosinophils # (Auto) 0.5 x10^3/uL (0.0-0.7) Basophils # (Auto) 0.0 x10^3/uL (0.0-0.2) Prothrombin Time 15.1 SEC (11.7-14.0) Prothromb Time International Ratio 1.2 (0.8-1.1) Sodium Level 135 mmol/L (136-145) Potassium Level 3.8 mmol/L (3.5-5.1) Chloride Level 97 mmol/L (98-107) Carbon Dioxide Level 29 mmol/L (21-32) Anion Gap 9 (6-14) Blood Urea Nitrogen 104 mg/dL (8-26) Creatinine 2.6 mg/dL (0.7-1.3) Estimated GFR (Cockcroft-Gault) 24.0 Glucose Level 94 mg/dL (70-99) Calcium Level 8.8 mg/dL (8.5-10.1) Glucose (Fingerstick) 93 mg/dL (70-99) Medications Active Scripts Medications Dose Route/Sig Max Daily Dose Days Date Category Trazodone Hcl 100 Mg Tablet 1 Tab PO QHS 05/16/19 Reported Tramadol Hcl 50 Mg Tablet 50 Mg PO Q8HRS 05/16/19 Reported Torsemide 20 Mg Tablet 100 Mg PO BID 05/16/19 Reported Temazepam 15 Mg Capsule 1 Cap PO QHS 05/16/19 Reported Sinemet Cr 25-100 Tablet (Carbidopa/Levodopa) 1 Each Tablet.er 1 Tab PO TID 05/16/19 Reported Simethicone 80 Mg Tab.chew 80 Mg PO PRN Q6HRS PRN 05/16/19 Reported Senna Plus 8.6-50 mg Tablet (Sennosides/Docusate Sodium) 1 Each Tablet 1 Each PO BID 05/16/19 Reported Renvela (Sevelamer Carbonate) 800 Mg Tablet 3 Tab PO TIDAC 05/16/19 Reported Protonix (Pantoprazole Sodium) 40 Mg Tablet.dr 40 Mg PO DAILYAC 05/16/19 Reported Pravastatin Sodium 20 Mg Tablet 1 Tab PO HS 05/16/19 Reported Potassium Chloride 20 Meq Tablet.er 2 Tab PO DAILY 05/16/19 Reported Klor-Con M20 (Potassium Chloride) 20 Meq Tab.er.prt 1 Tab PO PRN DAILY PRN 05/16/19 Reported Novolog (Insulin Aspart) 100 Unit/1 Ml Cartridge 8 Unit SQ TIDBFRMEAL 05/16/19 Reported NITROGLYCERIN SubLingual (Nitroglycerin) 0.4 Mg Tab.subl 1 Tab SL UD PRN 05/16/19 Reported Miralax (Polyethylene Glycol 3350) 17 Gm Powd.pack 1 Packet PO BID 05/16/19 Reported Metoprolol Succinate ( Xl ) (Metoprolol Succinate) 25 Mg Tab.er.24h 1 Tab PO DAILY 05/16/19 Reported Metolazone 5 Mg Tablet 1.5 Tab PO DAILY 05/16/19 Reported Metolazone 2.5 Mg Tablet 2.5 Mg PO PRN DAILY PRN 05/16/19 Reported Melatonin 3 Mg Tablet 2 Tab PO QHS 05/16/19 Reported Levothyroxine Sodium 125 Mcg Tablet 1 Tab PO DAILY 05/16/19 Reported Lantus Solostar (Insulin Glargine,Hum.rec.anlog) 100 Unit/1 Ml Insuln.pen 12 Unit SQ QHS 05/16/19 Reported Acidophilus (Lactobacillus Acidophilus) 1 Each Capsule 1 Each PO DAILY 05/16/19 Reported Glucose Gel (Dextrose) 38 Gm Gel..gram. 38 Gm PO PRN PRN 05/16/19 Reported Gabapentin (Gabapentin) 100 Mg Capsule 100 Mg PO TID 05/16/19 Reported Flonase Allergy Relief (Fluticasone Propionate) 9.9 Ml [place].susp 2 Sprays NS DAILY 05/16/19 Reported Fleet Enema (Na Phos,M-B/Na Phos,Di-Ba) 133 Ml Enema 133 Ml RC PRN PRN 05/16/19 Reported Ferrous Gluconate 240 Mg Tablet 240 Mg PO DAILY 05/16/19 Reported Uloric (Febuxostat) 80 Mg Tablet 1 Tab PO DAILY 05/16/19 Reported Cymbalta (Duloxetine Hcl) 60 Mg Capsule. 1 Cap PO HS 05/16/19 Reported Cymbalta (Duloxetine Hcl) 30 Mg Capsule.dr 1 Cap PO DAILY 05/16/19 Reported Vitamin B-12 (Cyanocobalamin (Vitamin B-12)) 1,000 Mcg Tablet 1 Tab PO DAILY 05/16/19 Reported Coumadin (Warfarin Sodium) 2 Mg Tablet 1 Tab PO DAILY 05/16/19 Reported Vitamin D3 (Cholecalciferol (Vitamin D3)) 5,000 Unit Tablet 1 Tab PO DAILY 05/16/19 Reported Buspirone Hcl 5 Mg Tablet 1 Tab PO BID 05/16/19 Reported Bisacodyl 10 Mg Supp.rect 10 Mg RC PRN DAILY PRN 05/16/19 Reported Tylenol (Acetaminophen) 325 Mg Tablet 2 Tab PO PRN Q6HRS PRN 05/16/19 Reported Sertraline Hcl 100 Mg Tablet 100 Mg PO DAILY 03/08/16 Reported Aspir 81 (Aspirin) 81 Mg Tablet.dr 1 Tab PO DAILY 03/08/16 Reported Novolog Flexpen (Insulin Aspart) 300 Units/3 Ml Insuln.pen 8 Units SQ TIDWMEALS 06/19/[address] CHEST 1. Moderate left lower lobe lung consolidation with moderate size left pleural effusion identified. 2. Moderate prominent appearing bilateral interstitial lung markings likely congestive changes. 3. Cholelithiasis. Electronically signed by: Austen Biggs MD (05/17/2019 9:42 AM) [place] [id number] CXR 05/24 CHF/ left effusion Impression . 1. acute hypoxic respiratory failure. secondary to CHF and pneumonia, clinically stable 2. Acute kidney injury on chronic kidney disease. 3. Abnormal chest x-ray with bilateral interstitial infiltrates with left-sided pleural effusion along with cardiomegaly c/w decompensated Systolic HF 5. Chronic anticoagulation 6. Cardiomyopathy EF 40-45%-stable 7. Hypotension --resolved 8. Encephalopathy , per neuro Plan . 1. Continue with antibiotic per ID. now on PO 2. Monitor effusion for now, asymptomatic at present. Marked azotemia preventing further diuresis 3. Monitor white cell count. 4. EF 40-45% 5. Dysphagia diet 6. Monitor renal function. 7. Follow Neurology recommendations. 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 8. d/w RN/ no further rec MARY PALM MD May 25, 2019 11:34
--- NOTE | 2019-05-25 11:37 | NUR ---
Pharmacy Warfarin Dosing Note S:Pharmacy consulted to assist with anticoagulation therapy started with target INR: 2 -3 O:CORAZON BLANCAS is a 78 year old M with Atrial Fibrillation LABS: Last INR: 1.2 Last HGB: 7.1 Last HCT: 21.6 Last PLT: 154 Last dose of 6 mg given on 05/24/19 at 2116 Previous Regimen: 2 mg/day Vitamin K given: N Drug Interaction Changes: New Interacting Drug Ongoing Drug Interactions: ASA, Zosyn A:INR of 1.2 is below desired range. Target range for this patient is: 2 -3 P: Warfarin dose: 7.5 mg Today at 1600. Bridge Therapy: None Next INR due tomorrow. Pharmacy anticoagulation service will continue to follow. Henrique Edgar [facility], 05/25/19 2521
--- NOTE | 2019-05-25 11:48 | PDOC ---
Renal-Progress Notes Subjective Notes Notes REMAINS CONFUSED History of Present Illness Hx of present illness STABLE Vitals Vitals Vital Signs Date Time Temp Pulse Resp B/P (MAP) Pulse Ox O2 Delivery O2 Flow Rate FiO2 05/25/19 09:08 69 149/43 05/25/19 08:00 Room Air 05/25/19 07:50 98.0 20 99 98.0 05/24/19 23:00 3.0 Weight Weight [ ] I.O. Intake and Output Intake and Output 05/25/19 07:00 Intake Total 120 ml Output Total 4100 ml Balance -3980 ml Intake Oral 120 ml Output Urine Total 4100 ml Labs Labs Laboratory Tests Test 05/24/19 16:41 05/24/19 18:01 05/24/19 20:39 05/25/19 04:10 Glucose (Fingerstick) 91 mg/dL (70-99) 102 mg/dL (70-99) 100 mg/dL (70-99) 93 mg/dL (70-99) Test 05/25/19 05:50 05/25/19 07:13 White Blood Count 7.3 x10^3/uL (4.0-11.0) Red Blood Count 2.51 x10^6/uL (4.30-5.70) Hemoglobin 7.1 g/dL (13.0-17.5) Hematocrit 21.6 % (39.0-53.0) Mean Corpuscular Volume 86 fL (79-100) Mean Corpuscular Hemoglobin 28 pg (25-35) Mean Corpuscular Hemoglobin Concent 33 g/dL (31-37) Red Cell Distribution Width 21.6 % (11.5-14.5) Platelet Count 154 x10^3/uL (140-400) Neutrophils (%) (Auto) 73 % (31-73) Lymphocytes (%) (Auto) 10 % (24-48) Monocytes (%) (Auto) 8 % (0-9) Eosinophils (%) (Auto) 8 % (0-3) Basophils (%) (Auto) 0 % (0-3) Neutrophils # (Auto) 5.3 x10^3/uL (1.8-7.7) Lymphocytes # (Auto) 0.8 x10^3/uL (1.0-4.8) Monocytes # (Auto) 0.6 x10^3/uL (0.0-1.1) Eosinophils # (Auto) 0.5 x10^3/uL (0.0-0.7) Basophils # (Auto) 0.0 x10^3/uL (0.0-0.2) Prothrombin Time 15.1 SEC (11.7-14.0) Prothromb Time International Ratio 1.2 (0.8-1.1) Sodium Level 135 mmol/L (136-145) Potassium Level 3.8 mmol/L (3.5-5.1) Chloride Level 97 mmol/L (98-107) Carbon Dioxide Level 29 mmol/L (21-32) Anion Gap 9 (6-14) Blood Urea Nitrogen 104 mg/dL (8-26) Creatinine 2.6 mg/dL (0.7-1.3) Estimated GFR (Cockcroft-Gault) 24.0 Glucose Level 94 mg/dL (70-99) Calcium Level 8.8 mg/dL (8.5-10.1) Glucose (Fingerstick) 93 mg/dL (70-99) Micro Micro Microbiology 05/16/19 Blood Culture - Final, Complete NO GROWTH AFTER 5 DAYS Review of Systems Constitutional: yes: other (STABLE) Physical Exam General Appearance: no apparent distress Skin: dry Respiratory: decreased breath sounds Heart: S1S2 Abdomen: soft, bowel sounds present Genitourinary: bladder flat Extremities: pulses present, no edema Neurology: alert, confused Assessment Assessment IMP CKD STAGE 4-CR STABLE AT HIS BASELINE OF ABOUT 3.0 SEPSIS PNEUMONIA DEMENTIA POOR PO INTAKE WITH EMESIS THIS AM PLAN SALINE 1 LITER GIVEN YESTERDAY ON PPN STOPPED HIS METOLAZONE FOR NOW-AND DECREASED DEMADEX TO 40 DAILY CONT ANTIBIOTICS WILL FOLLOW BETO TAYLOR MD May 25, 2019 11:48
[2019-05-25 11:51] VITALS: BP 142/31
--- NOTE | 2019-05-25 12:56 | PDOC ---
Subjective: Subjective: Says hello - no meaningful history from him. Objective: Objective: D/w nurse - barely eats (1-2 bites), stooled yesterday, no vomiting, has PC consult. Vital Signs: Vital Signs Date Time Temp Pulse Resp B/P (MAP) Pulse Ox O2 Delivery O2 Flow Rate FiO2 05/25/19 11:51 97.5 69 20 142/31 (68) 97 Room Air 97.5 05/24/19 23:00 3.0 Labs: Laboratory Tests Test 05/24/19 16:41 05/24/19 18:01 05/24/19 20:39 05/25/19 04:10 Glucose (Fingerstick) 91 mg/dL 102 mg/dL 100 mg/dL 93 mg/dL Test 05/25/19 05:50 05/25/19 07:13 05/25/19 12:30 White Blood Count 7.3 x10^3/uL Red Blood Count 2.51 x10^6/uL Hemoglobin 7.1 g/dL Hematocrit 21.6 % Mean Corpuscular Volume 86 fL Mean Corpuscular Hemoglobin 28 pg Mean Corpuscular Hemoglobin Concent 33 g/dL Red Cell Distribution Width 21.6 % Platelet Count 154 x10^3/uL Neutrophils (%) (Auto) 73 % Lymphocytes (%) (Auto) 10 % Monocytes (%) (Auto) 8 % Eosinophils (%) (Auto) 8 % Basophils (%) (Auto) 0 % Neutrophils # (Auto) 5.3 x10^3/uL Lymphocytes # (Auto) 0.8 x10^3/uL Monocytes # (Auto) 0.6 x10^3/uL Eosinophils # (Auto) 0.5 x10^3/uL Basophils # (Auto) 0.0 x10^3/uL Prothrombin Time 15.1 SEC Prothromb Time International Ratio 1.2 Sodium Level 135 mmol/L Potassium Level 3.8 mmol/L Chloride Level 97 mmol/L Carbon Dioxide Level 29 mmol/L Anion Gap 9 Blood Urea Nitrogen 104 mg/dL Creatinine 2.6 mg/dL Estimated GFR (Cockcroft-Gault) 24.0 Glucose Level 94 mg/dL Calcium Level 8.8 mg/dL Glucose (Fingerstick) 93 mg/dL 130 mg/dL Imaging: AAS 05/24 Impression: Congestive heart failure. Pleural effusions. Right upper lung field interstitial edema or infiltrate noted. Follow-up to assess for resolution recommended. No obstruction. PE: GEN: NAD LUNGS: CTAB HEART: RRR ABD: NABS, S/ND/NT NEURO/PSYCH: drowsy A/P: Poor appetite -- Continue PPI, await palliative discussion. NIKOLAY PROCTOR May 25, 2019 12:56
--- NOTE | 2019-05-25 13:54 | NUR ---
SW following pt. Pt has not been eating well. Palliative care consulted. SWer notified Physician PC RN is not available today. Daphner had discussed with pt's nephew and sister in law, Socorro Lang, phone: [phone] about how they can obtain guardianship and tentative dc plan back to [facility]. Will continue to follow.
[2019-05-25 14:55] VITALS: BP 133/43
[2019-05-25] MEDS ORDERED: WARFARIN 7.5 MG TABLET. PO ONE (16:00)
--- NOTE | 2019-05-25 16:25 | NUR ---
The patient has very poor appetite, takes 1 to 2 bites of his food. Offered the nephro shake, consumes about 25% only. Discussed with the hospitalist, order received to refer the patient for palliative care. Updated Marilu of [facility] regarding patient's care plan at [id number].
[2019-05-25 19:49] VITALS: BP 158/43
[2019-05-25] MEDS: traZODone 100 MG TABLET. PO SCH (22:04)
[2019-05-25] MEDS: ATORVASTATIN CALCIUM 10 MG TABLET. PO SCH (22:04)
[2019-05-25] MEDS: INSULIN GLARGINE SYRINGE. SQ SCH (22:06)
[2019-05-25 23:25] VITALS: BP 155/32
[2019-05-26 03:38] VITALS: BP 135/52
[2019-05-26] MEDS: AMINO AC 3%/ELECTROLYTE/GLYCER 1,000 ML IV SCH ×2 (05:30→15:27)
[2019-05-26] MEDS: LEVOTHYROXINE 125 MCG TABLET PO SCH (06:00)
[2019-05-26 06:45] LABS: CALCIUM 8.8 mg/dL (8.5-10.1); CREATININE 2.4 mg/dL (0.7-1.3); GFR 26.3; MAGNESIUM 2.2 mg/dL (1.8-2.4); PHOSPHORUS 3.3 mg/dL (2.6-4.7); POTASSIUM 3.7 mmol/L (3.5-5.1)
[2019-05-26 07:45] VITALS: BP 107/27
--- NOTE | 2019-05-26 08:19 | PDOC ---
PULMONARY PROGRESS NOTES Subjective remains on room air, appears comfortable, answers no to all my Qs Vitals Vital Signs Date Time Temp Pulse Resp B/P (MAP) Pulse Ox O2 Delivery O2 Flow Rate FiO2 05/26/19 07:45 98.2 70 20 107/27 (53) 97 Room Air 98.2 ROS: No Increase Cough General: Alert, No acute distress Lungs: Other (decrease left base) Cardiovascular: S1, S2 Abdomen: Soft, Non-tender Neuro Exam: Alert Extremities: Other (bka) Skin: Warm, Other (BLE BKA) Labs Laboratory Tests Test 05/24/19 10:55 05/24/19 16:41 05/24/19 18:01 05/24/19 20:39 Glucose (Fingerstick) 115 mg/dL (70-99) 91 mg/dL (70-99) 102 mg/dL (70-99) 100 mg/dL (70-99) Test 05/25/19 04:10 05/25/19 05:50 05/25/19 07:13 05/25/19 12:30 Glucose (Fingerstick) 93 mg/dL (70-99) 93 mg/dL (70-99) 130 mg/dL (70-99) White Blood Count 7.3 x10^3/uL (4.0-11.0) Red Blood Count 2.51 x10^6/uL (4.30-5.70) Hemoglobin 7.1 g/dL (13.0-17.5) Hematocrit 21.6 % (39.0-53.0) Mean Corpuscular Volume 86 fL (79-100) Mean Corpuscular Hemoglobin 28 pg (25-35) Mean Corpuscular Hemoglobin Concent 33 g/dL (31-37) Red Cell Distribution Width 21.6 % (11.5-14.5) Platelet Count 154 x10^3/uL (140-400) Neutrophils (%) (Auto) 73 % (31-73) Lymphocytes (%) (Auto) 10 % (24-48) Monocytes (%) (Auto) 8 % (0-9) Eosinophils (%) (Auto) 8 % (0-3) Basophils (%) (Auto) 0 % (0-3) Neutrophils # (Auto) 5.3 x10^3/uL (1.8-7.7) Lymphocytes # (Auto) 0.8 x10^3/uL (1.0-4.8) Monocytes # (Auto) 0.6 x10^3/uL (0.0-1.1) Eosinophils # (Auto) 0.5 x10^3/uL (0.0-0.7) Basophils # (Auto) 0.0 x10^3/uL (0.0-0.2) Prothrombin Time 15.1 SEC (11.7-14.0) Prothromb Time International Ratio 1.2 (0.8-1.1) Sodium Level 135 mmol/L (136-145) Potassium Level 3.8 mmol/L (3.5-5.1) Chloride Level 97 mmol/L (98-107) Carbon Dioxide Level 29 mmol/L (21-32) Anion Gap 9 (6-14) Blood Urea Nitrogen 104 mg/dL (8-26) Creatinine 2.6 mg/dL (0.7-1.3) Estimated GFR (Cockcroft-Gault) 24.0 Glucose Level 94 mg/dL (70-99) Calcium Level 8.8 mg/dL (8.5-10.1) Test 05/25/19 16:49 05/25/19 21:03 05/26/19 06:05 Glucose (Fingerstick) 121 mg/dL (70-99) 151 mg/dL (70-99) Prothrombin Time 16.0 SEC (11.7-14.0) Prothromb Time International Ratio 1.3 (0.8-1.1) Sodium Level 134 mmol/L (136-145) Potassium Level 3.7 mmol/L (3.5-5.1) Chloride Level 96 mmol/L (98-107) Carbon Dioxide Level 29 mmol/L (21-32) Anion Gap 9 (6-14) Blood Urea Nitrogen 105 mg/dL (8-26) Creatinine 2.4 mg/dL (0.7-1.3) Estimated GFR (Cockcroft-Gault) 26.3 Glucose Level 184 mg/dL (70-99) Calcium Level 8.8 mg/dL (8.5-10.1) Phosphorus Level 3.3 mg/dL (2.6-4.7) Magnesium Level 2.2 mg/dL (1.8-2.4) Laboratory Tests Test 05/25/19 12:30 05/25/19 16:49 05/25/19 21:03 05/26/19 06:05 Glucose (Fingerstick) 130 mg/dL (70-99) 121 mg/dL (70-99) 151 mg/dL (70-99) Prothrombin Time 16.0 SEC (11.7-14.0) Prothromb Time International Ratio 1.3 (0.8-1.1) Sodium Level 134 mmol/L (136-145) Potassium Level 3.7 mmol/L (3.5-5.1) Chloride Level 96 mmol/L (98-107) Carbon Dioxide Level 29 mmol/L (21-32) Anion Gap 9 (6-14) Blood Urea Nitrogen 105 mg/dL (8-26) Creatinine 2.4 mg/dL (0.7-1.3) Estimated GFR (Cockcroft-Gault) 26.3 Glucose Level 184 mg/dL (70-99) Calcium Level 8.8 mg/dL (8.5-10.1) Phosphorus Level 3.3 mg/dL (2.6-4.7) Magnesium Level 2.2 mg/dL (1.8-2.4) Medications Active Scripts Medications Dose Route/Sig Max Daily Dose Days Date Category Trazodone Hcl 100 Mg Tablet 1 Tab PO QHS 05/16/19 Reported Tramadol Hcl 50 Mg Tablet 50 Mg PO Q8HRS 05/16/19 Reported Torsemide 20 Mg Tablet 100 Mg PO BID 05/16/19 Reported Temazepam 15 Mg Capsule 1 Cap PO QHS 05/16/19 Reported Sinemet Cr 25-100 Tablet (Carbidopa/Levodopa) 1 Each Tablet.er 1 Tab PO TID 05/16/19 Reported Simethicone 80 Mg Tab.chew 80 Mg PO PRN Q6HRS PRN 05/16/19 Reported Senna Plus 8.6-50 mg Tablet (Sennosides/Docusate Sodium) 1 Each Tablet 1 Each PO BID 05/16/19 Reported Renvela (Sevelamer Carbonate) 800 Mg Tablet 3 Tab PO TIDAC 05/16/19 Reported Protonix (Pantoprazole Sodium) 40 Mg Tablet.dr 40 Mg PO DAILYAC 05/16/19 Reported Pravastatin Sodium 20 Mg Tablet 1 Tab PO HS 05/16/19 Reported Potassium Chloride 20 Meq Tablet.er 2 Tab PO DAILY 05/16/19 Reported Klor-Con M20 (Potassium Chloride) 20 Meq Tab.er.prt 1 Tab PO PRN DAILY PRN 05/16/19 Reported Novolog (Insulin Aspart) 100 Unit/1 Ml Cartridge 8 Unit SQ TIDBFRMEAL 05/16/19 Reported NITROGLYCERIN SubLingual (Nitroglycerin) 0.4 Mg Tab.subl 1 Tab SL UD PRN 05/16/19 Reported Miralax (Polyethylene Glycol 3350) 17 Gm Powd.pack 1 Packet PO BID 05/16/19 Reported Metoprolol Succinate ( Xl ) (Metoprolol Succinate) 25 Mg Tab.er.24h 1 Tab PO DAILY 05/16/19 Reported Metolazone 5 Mg Tablet 1.5 Tab PO DAILY 05/16/19 Reported Metolazone 2.5 Mg Tablet 2.5 Mg PO PRN DAILY PRN 05/16/19 Reported Melatonin 3 Mg Tablet 2 Tab PO QHS 05/16/19 Reported Levothyroxine Sodium 125 Mcg Tablet 1 Tab PO DAILY 05/16/19 Reported Lantus Solostar (Insulin Glargine,Hum.rec.anlog) 100 Unit/1 Ml Insuln.pen 12 Unit SQ QHS 05/16/19 Reported Acidophilus (Lactobacillus Acidophilus) 1 Each Capsule 1 Each PO DAILY 05/16/19 Reported Glucose Gel (Dextrose) 38 Gm Gel..gram. 38 Gm PO PRN PRN 05/16/19 Reported Gabapentin (Gabapentin) 100 Mg Capsule 100 Mg PO TID 05/16/19 Reported Flonase Allergy Relief (Fluticasone Propionate) 9.9 Ml [place].susp 2 Sprays NS DAILY 05/16/19 Reported Fleet Enema (Na Phos,M-B/Na Phos,Di-Ba) 133 Ml Enema 133 Ml RC PRN PRN 05/16/19 Reported Ferrous Gluconate 240 Mg Tablet 240 Mg PO DAILY 05/16/19 Reported Uloric (Febuxostat) 80 Mg Tablet 1 Tab PO DAILY 05/16/19 Reported Cymbalta (Duloxetine Hcl) 60 Mg Capsule.dr 1 Cap PO HS 05/16/19 Reported Cymbalta (Duloxetine Hcl) 30 Mg Capsule.dr 1 Cap PO DAILY 05/16/19 Reported Vitamin B-12 (Cyanocobalamin (Vitamin B-12)) 1,000 Mcg Tablet 1 Tab PO DAILY 05/16/19 Reported Coumadin (Warfarin Sodium) 2 Mg Tablet 1 Tab PO DAILY 05/16/19 Reported Vitamin D3 (Cholecalciferol (Vitamin D3)) 5,000 Unit Tablet 1 Tab PO DAILY 05/16/19 Reported Buspirone Hcl 5 Mg Tablet 1 Tab PO BID 05/16/19 Reported Bisacodyl 10 Mg Supp.rect 10 Mg RC PRN DAILY PRN 05/16/19 Reported Tylenol (Acetaminophen) 325 Mg Tablet 2 Tab PO PRN Q6HRS PRN 05/16/19 Reported Sertraline Hcl 100 Mg Tablet 100 Mg PO DAILY 03/08/16 Reported Aspir 81 (Aspirin) 81 Mg Tablet.dr 1 Tab PO DAILY 03/08/16 Reported Novolog Flexpen (Insulin Aspart) 300 Units/3 Ml Insuln.pen 8 Units SQ TIDWMEALS 06/19/[address] CHEST 1. Moderate left lower lobe lung consolidation with moderate size left pleural effusion identified. 2. Moderate prominent appearing bilateral interstitial lung markings likely congestive changes. 3. Cholelithiasis. Electronically signed by: Austen Biggs MD (05/17/2019 9:42 AM) [place] [id number] CXR 05/24 CHF/ left effusion Impression . 1. acute hypoxic respiratory failure. secondary to CHF and pneumonia, clinically stable 2. Acute kidney injury on chronic kidney disease. 3. Abnormal chest x-ray with bilateral interstitial infiltrates with left-sided pleural effusion along with cardiomegaly c/w decompensated Systolic HF 5. Chronic anticoagulation 6. Cardiomyopathy EF 40-45%-stable 7. Hypotension --resolved 8. Encephalopathy , improved, per neuro Plan . 1. Continue with antibiotic per ID. now on PO 2. Monitor effusion for now, asymptomatic at present. Marked azotemia preventing further diuresis 3. Monitor white cell count. 4. EF 40-45% 5. Dysphagia diet, elevate hob 6. Monitor renal function. 7. Follow Neurology recommendations. 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 8. d/w RN/ no further rec CLIFF DELGADO MD May 26, 2019 08:19
--- NOTE | 2019-05-26 08:41 | PDOC ---
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 cellulitis ABBY on CKD - likely this is vasomotor nephropathy due to poor PO intake Afib Cerebellar infarct - on CT scan, ? age Cardiomyopathy with pacemaker Severe protein calorie malnutrition\ ON PPN dysphagia -on dysphagia 1 diet uncontrolled hypertension 05/24 POOR DENTITION 05/24 marked nausea did not shannan luncH, wretching d/w RN, WILL ORDER KUB R/O ILEUS 05/25 REFUSING TO EAT WILL CONSULT PALLIATIVE CARE 05/26 if eats 50% of lunch and breakfast, will consider d/c later today po augmentin x 4 days MAY BE CAUSE OF NAUSEA CONSIDER PALLIATIVE CARE cbc in am 05/27 26 min pt exam, chart review, > 50% of time spent with exam, chart review, pt care coordination History of Present Illness History of Present Illness emesis still SNU resident needs t be fed in SNU HE is bilateral BKA - so wheelchair bound HE is DNR< active med treatment' he is on warf for maybe bed bound issues, bilateral BKA PLAN: adjust insulin today SSI high dose SHIFT pls IV zyvox, zosyn per ID--switched to augmentin per ID DNR WArf per pharmacy goal 2-3 held off sedating meds for now like gabapentin, trazadone, cymbalta etc COnt dysphagia 1 diet dc back to SNF soon Vitals Vitals Vital Signs Date Time Temp Pulse Resp B/P (MAP) Pulse Ox O2 Delivery O2 Flow Rate FiO2 05/26/19 07:45 98.2 70 20 107/27 (53) 97 Room Air 98.2 Physical Exam Physical Exam GENERAL: awake CANNOT TELL ME CORRECT YEAR HEENT: OC/OP- clean NECK: Supple. HEART: S1, S2 with a 2/6 murmur. Pacemaker ABDOMEN: Soft, nontender. No guarding. GENITOURINARY: Garcia in place. EXTREMITIES: Bilateral lower extremity BKAs Mild RUE erythema and dryness SKIN: warm to touch NEUROLOGIC: Nonverbal RIJ clean General: Alert, Cooperative, No acute distress, Other (oriented to person only) Heart: Regular rate, Normal S1, Normal S2, Other (3/6 systolic murmur ) Lungs: Other (decrease left base) Abdomen: Normal bowel sounds, Soft, No hepatosplenomegaly, Other (MILD DISTENSION) Extremities: No clubbing, No cyanosis, Other (bilateral BKA, trace edema ) Skin: No rashes Labs LABS Laboratory Tests Test 05/25/19 12:30 05/25/19 16:49 05/25/19 21:03 05/26/19 06:05 Glucose (Fingerstick) 130 mg/dL (70-99) 121 mg/dL (70-99) 151 mg/dL (70-99) Prothrombin Time 16.0 SEC (11.7-14.0) Prothromb Time International Ratio 1.3 (0.8-1.1) Sodium Level 134 mmol/L (136-145) Potassium Level 3.7 mmol/L (3.5-5.1) Chloride Level 96 mmol/L (98-107) Carbon Dioxide Level 29 mmol/L (21-32) Anion Gap 9 (6-14) Blood Urea Nitrogen 105 mg/dL (8-26) Creatinine 2.4 mg/dL (0.7-1.3) Estimated GFR (Cockcroft-Gault) 26.3 Glucose Level 184 mg/dL (70-99) Calcium Level 8.8 mg/dL (8.5-10.1) Phosphorus Level 3.3 mg/dL (2.6-4.7) Magnesium Level 2.2 mg/dL (1.8-2.4) Test 05/26/19 08:15 Glucose (Fingerstick) 161 mg/dL (70-99) Assessment and Plan Assessmemt and Plan Problems Medical Problems: (1) Acute kidney injury superimposed on CKD Status: Acute (2) Acute on chronic combined systolic (congestive) and diastolic (congestive) heart failure Status: Acute (3) Acute respiratory failure Status: Acute (4) Acute respiratory failure with hypoxia Status: Acute (5) ABBY (acute kidney injury) Status: Acute (6) CAD (coronary artery disease) Status: Chronic (7) Chronic a-fib Status: Chronic (8) Chronic kidney disease, stage 4 (severe) Status: Acute (9) CKD (chronic kidney disease), stage III Status: Chronic (10) CVA (cerebral vascular accident) Status: Acute (11) DM2 (diabetes mellitus, type 2) Status: Chronic (12) Dyspnea Status: Acute (13) HCAP (healthcare-associated pneumonia) Status: Acute (14) Metabolic encephalopathy Status: Acute (15) Pleural effusion on left Status: Acute (16) Pleural effusion, left Status: Acute (17) Pulmonary edema Status: Acute (18) Sepsis Status: Acute (19) Severe sepsis Status: Acute Comment Review of Relevant I have reviewed the following items nestor (where applicable) has been applied. Labs Laboratory Tests Test 05/24/19 10:55 05/24/19 16:41 05/24/19 18:01 05/24/19 20:39 Glucose (Fingerstick) 115 mg/dL (70-99) 91 mg/dL (70-99) 102 mg/dL (70-99) 100 mg/dL (70-99) Test 05/25/19 04:10 05/25/19 05:50 05/25/19 07:13 05/25/19 12:30 Glucose (Fingerstick) 93 mg/dL (70-99) 93 mg/dL (70-99) 130 mg/dL (70-99) White Blood Count 7.3 x10^3/uL (4.0-11.0) Red Blood Count 2.51 x10^6/uL (4.30-5.70) Hemoglobin 7.1 g/dL (13.0-17.5) Hematocrit 21.6 % (39.0-53.0) Mean Corpuscular Volume 86 fL (79-100) Mean Corpuscular Hemoglobin 28 pg (25-35) Mean Corpuscular Hemoglobin Concent 33 g/dL (31-37) Red Cell Distribution Width 21.6 % (11.5-14.5) Platelet Count 154 x10^3/uL (140-400) Neutrophils (%) (Auto) 73 % (31-73) Lymphocytes (%) (Auto) 10 % (24-48) Monocytes (%) (Auto) 8 % (0-9) Eosinophils (%) (Auto) 8 % (0-3) Basophils (%) (Auto) 0 % (0-3) Neutrophils # (Auto) 5.3 x10^3/uL (1.8-7.7) Lymphocytes # (Auto) 0.8 x10^3/uL (1.0-4.8) Monocytes # (Auto) 0.6 x10^3/uL (0.0-1.1) Eosinophils # (Auto) 0.5 x10^3/uL (0.0-0.7) Basophils # (Auto) 0.0 x10^3/uL (0.0-0.2) Prothrombin Time 15.1 SEC (11.7-14.0) Prothromb Time International Ratio 1.2 (0.8-1.1) Sodium Level 135 mmol/L (136-145) Potassium Level 3.8 mmol/L (3.5-5.1) Chloride Level 97 mmol/L (98-107) Carbon Dioxide Level 29 mmol/L (21-32) Anion Gap 9 (6-14) Blood Urea Nitrogen 104 mg/dL (8-26) Creatinine 2.6 mg/dL (0.7-1.3) Estimated GFR (Cockcroft-Gault) 24.0 Glucose Level 94 mg/dL (70-99) Calcium Level 8.8 mg/dL (8.5-10.1) Test 05/25/19 16:49 05/25/19 21:03 05/26/19 06:05 05/26/19 08:15 Glucose (Fingerstick) 121 mg/dL (70-99) 151 mg/dL (70-99) 161 mg/dL (70-99) Prothrombin Time 16.0 SEC (11.7-14.0) Prothromb Time International Ratio 1.3 (0.8-1.1) Sodium Level 134 mmol/L (136-145) Potassium Level 3.7 mmol/L (3.5-5.1) Chloride Level 96 mmol/L (98-107) Carbon Dioxide Level 29 mmol/L (21-32) Anion Gap 9 (6-14) Blood Urea Nitrogen 105 mg/dL (8-26) Creatinine 2.4 mg/dL (0.7-1.3) Estimated GFR (Cockcroft-Gault) 26.3 Glucose Level 184 mg/dL (70-99) Calcium Level 8.8 mg/dL (8.5-10.1) Phosphorus Level 3.3 mg/dL (2.6-4.7) Magnesium Level 2.2 mg/dL (1.8-2.4) Laboratory Tests Test 05/25/19 12:30 05/25/19 16:49 05/25/19 21:03 05/26/19 06:05 Glucose (Fingerstick) 130 mg/dL (70-99) 121 mg/dL (70-99) 151 mg/dL (70-99) Prothrombin Time 16.0 SEC (11.7-14.0) Prothromb Time International Ratio 1.3 (0.8-1.1) Sodium Level 134 mmol/L (136-145) Potassium Level 3.7 mmol/L (3.5-5.1) Chloride Level 96 mmol/L (98-107) Carbon Dioxide Level 29 mmol/L (21-32) Anion Gap 9 (6-14) Blood Urea Nitrogen 105 mg/dL (8-26) Creatinine 2.4 mg/dL (0.7-1.3) Estimated GFR (Cockcroft-Gault) 26.3 Glucose Level 184 mg/dL (70-99) Calcium Level 8.8 mg/dL (8.5-10.1) Phosphorus Level 3.3 mg/dL (2.6-4.7) Magnesium Level 2.2 mg/dL (1.8-2.4) Test 05/26/19 08:15 Glucose (Fingerstick) 161 mg/dL (70-99) Microbiology 05/16/19 Blood Culture - Final, Complete NO GROWTH AFTER 5 DAYS Medications Current Medications Vancomycin HCl (Vanco Per Pharmacy) 1 each PRN DAILY PRN MC SEE COMMENTS Last administered on 05/16/19at 02:12; Start 05/15/19 at 23:00; Stop 05/17/19 at 06:52; Status DC Levofloxacin/ Dextrose 150 ml @ 100 mls/hr 1X ONCE IV Last administered on 05/16/19at 00:17; Start 05/15/19 at 23:30; Stop 05/16/19 at 00:59; Status DC Sodium Chloride 1,000 ml @ 1,000 mls/hr 1X ONCE IV ; Start 05/15/19 at 23:30; Stop 05/16/19 at 00:29; Status DC Sodium Chloride 1,000 ml @ 1,000 mls/hr 1X ONCE IV Last administered on 05/16/19at 00:17; Start 05/15/19 at 23:30; Stop 05/16/19 at 00:29; Status DC Sodium Chloride 1,000 ml @ 1,000 mls/hr 1X ONCE IV Last administered on 05/16/19at 00:17; Start 05/15/19 at 23:30; Stop 05/16/19 at 00:29; Status DC Vancomycin HCl 2 gm/Sodium Chloride 500 ml @ 250 mls/hr 1X ONCE IV Last administered on 05/16/19at 00:15; Start 05/16/19 at 00:00; Stop 05/16/19 at 01:59; Status DC Ondansetron HCl (Zofran) 4 mg PRN Q8HRS PRN IV NAUSEA/VOMITING 1ST CHOICE; Start 05/16/19 at 01:45; Stop 05/17/19 at 01:44; Status DC Vancomycin HCl 1.25 gm/Sodium Chloride 250 ml @ 167 mls/hr Q48H IV ; Start 05/18/19 at 00:00; Stop 05/17/19 at 06:52; Status DC Vancomycin HCl (Vancomycin Trough Level) 1 each 1X ONCE MC ; Start 05/19/19 at 23:30; Stop 05/17/19 at 07:19; Status DC Albumin Human 100 ml @ 100 mls/hr 1X ONCE IV Last administered on 05/16/19at 04:14; Start 05/16/19 at 04:30; Stop 05/16/19 at 05:29; Status DC Norepinephrine Bitartrate 250 ml @ 17.031 mls/ hr CONT PRN IV SEE I/O RECORD Last administered on 05/16/19at 04:21; Start 05/16/19 at 04:00; Stop 05/19/19 at 08:36; Status DC Info (FLU VACCINE SCREEN per RX) 1 each 1X ONCE MC ; Start 05/16/19 at 05:00; Stop 05/16/19 at 05:01; Status UNV Albumin Human 250 ml @ 125 mls/hr 1X ONCE IV Last administered on 05/16/19at 05:11; Start 05/16/19 at 05:30; Stop 05/16/19 at 07:29; Status DC Piperacillin Sod/ Tazobactam Sod 2.25 gm/Sodium Chloride 50 ml @ 100 mls/hr Q6HRS IV Last administered on 05/22/19at 06:02; Start 05/16/19 at 13:00; Stop 05/22/19 at 11:04; Status DC Linezolid/Dextrose 300 ml @ 300 mls/hr Q12HR IV Last administered on 05/22/19at 09:01; Start 05/17/19 at 09:00; Stop 05/22/19 at 11:04; Status DC Furosemide (Lasix) 40 mg 1X ONCE IVP Last administered on 05/17/19at 15:47; Start 05/17/19 at 15:45; Stop 05/17/19 at 15:46; Status DC Amino Acids/ Glycerin/ Electrolytes 1,000 ml @ 80 mls/hr [id number] IV Last administered on 05/25/19at 17:04; Start 05/18/19 at 10:00 Aspirin (Ecotrin) 81 mg DAILYWBKFT PO Last administered on 05/25/19at 09:05; Start 05/18/19 at 12:45 Furosemide (Lasix) 40 mg 1X ONCE IVP Last administered on 05/18/19at 15:39; Start 05/18/19 at 15:00; Stop 05/18/19 at 15:01; Status DC Metoprolol Succinate (Toprol Xl) 25 mg DAILY PO Last administered on 05/25/19at 09:08; Start 05/18/19 at 15:00 Insulin Glargine (Lantus Syringe) 12 unit QHS SQ Last administered on 05/20/19at 23:37; Start 05/18/19 at 21:00; Stop 05/21/19 at 09:11; Status DC Insulin Human Lispro (HumaLOG) 0-5 UNITS TIDWMEALS SQ Last administered on 05/20/19at 17:22; Start 05/18/19 at 17:00; Stop 05/21/19 at 09:11; Status DC Dextrose (Dextrose 50%-Water Syringe) 12.5 gm PRN Q15MIN PRN IV SEE COMMENTS; Start 05/18/19 at 17:00; Stop 05/21/19 at 09:12; Status DC Dextrose 250 ml PRN Q15MIN PRN IV SEE COMMENTS; Start 05/18/19 at 17:00; Stop 05/21/19 at 09:12; Status DC Insulin Human Lispro (HumaLOG) 6 units TIDWMEALS SQ Last administered on 05/25/19at 17:19; Start 05/18/19 at 17:00 Buspirone HCl (Buspar) 5 mg BID PO Last administered on 05/25/19 22:03; Start 05/19/19 at 10:00 Carbidopa/Levodopa (Sinemet Cr) 1 tab.sa TID PO Last administered on 05/25/19 22:04; Start 05/19/19 at 09:00 Levothyroxine Sodium (Synthroid) 125 mcg DAILY06 PO Last administered on 05/25/19 09:04; Start 05/19/19 at 10:30 Polyethylene Glycol (miraLAX PACKET) 17 gm BID PO Last administered on 05/23/19 21:25; Start 05/19/19 at 09:00 Sevelamer Carbonate (Renvela) 2,400 mg TIDAC PO Last administered on 05/20/19 09:37; Start 05/19/19 at 11:30; Stop 05/20/19 at 14:10; Status DC Lactobacillus Rhamnosus (Culturelle) 1 cap BID PO Last administered on 05/25/19at 22:05; Start 05/20/19 at 21:00 Insulin Glargine (Lantus Syringe) 15 unit QHS SQ Last administered on 05/25/19 22:06; Start 05/21/19 at 21:00 Insulin Human Lispro (HumaLOG) 0-9 UNITS TIDWMEALS SQ Last administered on 05/23/19at 11:34; Start 05/21/19 at 09:30 Dextrose (Dextrose 50%-Water Syringe) 12.5 gm PRN Q15MIN PRN IV SEE COMMENTS; Start 05/21/19 at 09:15 Dextrose 250 ml PRN Q15MIN PRN IV SEE COMMENTS; Start 05/21/19 at 09:15 Acetaminophen (Tylenol) 650 mg PRN Q6HRS PRN PO MILD PAIN 1-3; Start 05/21/19 at 09:15 Aspirin (Ecotrin) 81 mg DAILY PO ; Start 05/22/19 at 09:00; Status UNV Bisacodyl (Dulcolax Supp) 10 mg PRN DAILY PRN RC CONSTIPATION; Start 05/21/19 at 09:15 Cyanocobalamin (Vitamin B-12) 1,000 mcg DAILY PO Last administered on 05/25/19at 09:06; Start 05/21/19 at 10:00 Glucose (Insta-Glucose) 15 gm PRN DAILY PRN PO Hypoglycemia; Start 05/21/19 at 09:15 Metolazone (Zaroxolyn) 2.5 mg PRN DAILY PRN PO Weight gain/Fluid gain; Start 05/21/19 at 09:15 Metoprolol Succinate (Toprol Xl) 25 mg DAILY PO ; Start 05/22/19 at 09:00; Status UNV Sodium Monofluorophosphate (Fleet Adult) 133 ml PRN DAILY PRN RC CONSTIPATION; Start 05/21/19 at 09:15 Pantoprazole Sodium (Protonix) 40 mg DAILYAC PO Last administered on 05/25/19at 09:04; Start 05/21/19 at 10:00 Potassium Chloride (Klor-Con) 20 meq PRN DAILY PRN PO IF PRN METOLAZONE GIVEN; Start 05/21/19 at 09:15 Senna/Docusate Sodium (Senna Plus) 1 tab BID PO Last administered on 05/25/19at 22:04; Start 05/21/19 at 10:00 Simethicone (Gas-X) 80 mg PRN Q6HRS PRN PO HEARTBURN / GAS; Start 05/21/19 at 09:15 Torsemide (Demadex) 100 mg BID92 PO Last administered on 05/25/19at 09:08; Start 05/21/19 at 10:00; Stop 05/25/19 at 11:47; Status DC Trazodone HCl (Desyrel) 100 mg QHS PO Last administered on 05/25/19at 22:04; Start 05/21/19 at 21:00 Warfarin Sodium (Coumadin) 2 mg DAILY16 PO ; Start 05/21/19 at 16:00; Stop 05/22/19 at 15:45; Status DC Febuxostat (Uloric) 80 mg DAILY PO Last administered on 05/25/19at 09:07; Start 05/21/19 at 10:00 Ferrous Sulfate (Feosol) 325 mg DAILYWBKFT PO Last administered on 05/25/19at 09:05; Start 05/21/19 at 10:00 Fluticasone Propionate (Flonase) 2 spray DAILY NS Last administered on 05/25/19at 09:14; Start 05/21/19 at 10:00 Lactobacillus Rhamnosus (Culturelle) 1 cap DAILY PO ; Start 05/22/19 at 09:00; Status UNV Non-Formulary Medication (Melatonin ) 2 tab QHS PO ; Start 05/21/19 at 21:00; Status UNV Metolazone (Zaroxolyn) 7.5 mg DAILY PO Last administered on 05/23/19 08:57; Start 05/21/19 at 10:00; Stop 05/23/19 at 11:13; Status DC Potassium Chloride (Klor-Con) 40 meq DAILYWBKFT PO Last administered on 05/25/19 09:14; Start 05/21/19 at 10:00 Atorvastatin Calcium (Lipitor) 5 mg QHS PO Last administered on 05/25/19 22:04; Start 05/21/19 at 21:00 Vitamin D (Vitamin D3) 5,000 unit DAILY PO Last administered on 05/25/19 09:06; Start 05/21/19 at 10:00 Warfarin Sodium (Coumadin Per Pharmacy) 1 each PRN DAILY PRN MC SEE COMMENTS Last administered on 05/25/19at 11:24; Start 05/21/19 at 09:15 Ondansetron HCl (Zofran) 4 mg PRN Q6HRS PRN IV NAUSEA/VOMITING Last administered on 05/22/19 23:05; Start 05/21/19 at 11:00 Amoxicillin/ Clavulanate Potassium (Augmentin 875/ 125mg) 1 tab DAILY PO Last administered on 05/25/19at 09:07; Start 05/23/19 at 09:00 Warfarin Sodium (Coumadin) 5 mg 1X WARF ONCE PO ; Start 05/22/19 at 16:00; Stop 05/22/19 at 16:01; Status DC Warfarin Sodium (Coumadin) 5 mg 1X WARF ONCE PO Last administered on 05/23/19at 17:59; Start 05/23/19 at 17:00; Stop 05/23/19 at 17:01; Status DC Warfarin Sodium (Coumadin) 6 mg 1X WARF ONCE PO Last administered on 05/24/19at 21:16; Start 05/24/19 at 16:00; Stop 05/24/19 at 16:01; Status DC Sodium Chloride 1,000 ml @ 75 mls/hr 1X ONCE IV Last administered on 9/26/19at 14:48; Start 05/24/19 at 13:00; Stop 05/25/19 at 02:19; Status DC Hydralazine HCl (Apresoline Inj) 10 mg PRN Q4HRS PRN IVP ELEVATED BP, SEE COMMENTS; Start 05/24/19 at 14:15 Warfarin Sodium (Coumadin) 7.5 mg 1X WARF ONCE PO Last administered on 05/25/19at 15:27; Start 05/25/19 at 16:00; Stop 05/25/19 at 16:01; Status DC Torsemide (Demadex) 40 mg DAILY PO ; Start 05/26/19 at 09:00 Active Scripts Active Novolog Flexpen (Insulin Aspart) 300 Units/3 Ml Insuln.pen 8 Units SQ TIDWMEALS Reported Trazodone Hcl 100 Mg Tablet 1 Tab PO QHS Tramadol Hcl 50 Mg Tablet 50 Mg PO Q8HRS Torsemide 20 Mg Tablet 100 Mg PO BID Temazepam 15 Mg Capsule 1 Cap PO QHS Sinemet Cr 25-100 Tablet (Carbidopa/Levodopa) 1 Each Tablet.er 1 Tab PO TID Simethicone 80 Mg Tab.chew 80 Mg PO PRN Q6HRS PRN Senna Plus 8.6-50 mg Tablet (Sennosides/Docusate Sodium) 1 Each Tablet 1 Each PO BID Renvela (Sevelamer Carbonate) 800 Mg Tablet 3 Tab PO TIDAC Protonix (Pantoprazole Sodium) 40 Mg Tablet.dr 40 Mg PO DAILYAC Pravastatin Sodium 20 Mg Tablet 1 Tab PO HS Potassium Chloride 20 Meq Tablet.er 2 Tab PO DAILY Klor-Con M20 (Potassium Chloride) 20 Meq Tab.er.prt 1 Tab PO PRN DAILY PRN Novolog (Insulin Aspart) 100 Unit/1 Ml Cartridge 8 Unit SQ TIDBFRMEAL NITROGLYCERIN SubLingual (Nitroglycerin) 0.4 Mg Tab.subl 1 Tab SL UD PRN Miralax (Polyethylene Glycol 3350) 17 Gm Powd.pack 1 Packet PO BID Metoprolol Succinate ( Xl ) (Metoprolol Succinate) 25 Mg Tab.er.24h 1 Tab PO DAILY Metolazone 5 Mg Tablet 1.5 Tab PO DAILY Metolazone 2.5 Mg Tablet 2.5 Mg PO PRN DAILY PRN Melatonin 3 Mg Tablet 2 Tab PO QHS Levothyroxine Sodium 125 Mcg Tablet 1 Tab PO DAILY Lantus Solostar (Insulin Glargine,Hum.rec.anlog) 100 Unit/1 Ml Insuln.pen 12 Unit SQ QHS Acidophilus (Lactobacillus Acidophilus) 1 Each Capsule 1 Each PO DAILY Glucose Gel (Dextrose) 38 Gm Gel..gram. 38 Gm PO PRN PRN Gabapentin (Gabapentin) 100 Mg Capsule 100 Mg PO TID Flonase Allergy Relief (Fluticasone Propionate) 9.9 Ml Price.susp 2 Sprays NS D AILY Fleet Enema (Na Phos,M-B/Na Phos,Di-Ba) 133 Ml Enema 133 Ml RC PRN PRN Ferrous Gluconate 240 Mg Tablet 240 Mg PO DAILY Uloric (Febuxostat) 80 Mg Tablet 1 Tab PO DAILY Cymbalta (Duloxetine Hcl) 60 Mg Capsule.dr 1 Cap PO HS Cymbalta (Duloxetine Hcl) 30 Mg Capsule.dr 1 Cap PO DAILY Vitamin B-12 (Cyanocobalamin (Vitamin B-12)) 1,000 Mcg Tablet 1 Tab PO DAILY Coumadin (Warfarin Sodium) 2 Mg Tablet 1 Tab PO DAILY Vitamin D3 (Cholecalciferol (Vitamin D3)) 5,000 Unit Tablet 1 Tab PO DAILY Buspirone Hcl 5 Mg Tablet 1 Tab PO BID Bisacodyl 10 Mg Supp.rect 10 Mg RC PRN DAILY PRN Tylenol (Acetaminophen) 325 Mg Tablet 2 Tab PO PRN Q6HRS PRN Sertraline Hcl 100 Mg Tablet 100 Mg PO DAILY Aspir 81 (Aspirin) 81 Mg Tablet.dr 1 Tab PO DAILY Vitals/I & O Vital Sign - Last 24 Hours 05/25/19 05/25/19 05/25/19 05/25/19 09:08 11:51 14:55 19:49 Temp 97.5 98.1 98.4 97.5 98.1 98.4 Pulse 69 69 69 69 Resp 20 18 20 B/P (MAP) 149/43 142/31 (68) 133/43 (73) 158/43 (81) Pulse Ox 97 97 98 O2 Delivery Room Air Room Air Room Air 05/25/19 05/26/19 05/26/19 23:25 03:38 07:45 Temp 98.1 98.1 98.2 98.1 98.1 98.2 Pulse 69 69 70 Resp 18 20 20 B/P (MAP) 155/32 (73) 135/52 (79) 107/27 (53) Pulse Ox 96 100 97 O2 Delivery Room Air Room Air Room Air Intake and Output 05/25/19 05/25/19 05/26/19 14:59 22:59 06:59 Intake Total 240 ml 0 ml Output Total 2200 ml 1300 ml Balance -1960 ml -1300 ml SCOTT VASQUEZ MD May 26, 2019 08:41
[2019-05-26] MEDS: METOPROLOL SUCC 24HR ER 25 MG TAB.ER.24H. PO SCH (09:00)
[2019-05-26] MEDS: FLUTICASONE 50MCG/NASAL SPRAY 16GM BOTTLE. NS SCH (09:00)
[2019-05-26] MEDS: POLYETHYLENE GLYCOL 3350 17 GM PACKET. PO SCH ×2 (09:00→20:16)
[2019-05-26] MEDS: SENNOSIDES/DOCUSATE 8.6/50MG TABLET. PO SCH ×2 (10:21→20:16)
[2019-05-26] MEDS: busPIRone 5 MG TABLET. PO SCH ×2 (10:21→21:56)
[2019-05-26] MEDS: TORSEMIDE 20 MG TABLET. PO SCH (10:21)
[2019-05-26] MEDS: POTASSIUM CHLORIDE 20 MEQ TABLET.ER. PO SCH (10:22)
[2019-05-26] MEDS: CARBIDOPA/LEVODOPA CR 25/100MG TABLET.SA. PO SCH ×3 (10:22→21:57)
[2019-05-26] MEDS: ASPIRIN ENTERIC COATED 81 MG TABLET.DR. PO SCH (10:22)
[2019-05-26] MEDS: PANTOPRAZOLE 40 MG TABLET.DR. PO SCH (10:22)
[2019-05-26] MEDS: FERROUS SULFATE 325 MG TABLET. PO SCH (10:23)
[2019-05-26] MEDS: FEBUXOSTAT 40 MG TABLET PO SCH (10:23)
[2019-05-26] MEDS: LACTOBACILLUS RHAMNOSUS GG 1 CAPSULE. PO SCH ×2 (10:23→21:57)
[2019-05-26] MEDS: CHOLECALCIFEROL (VITAMIN D3) 5,000 UNIT CAPSULE PO SCH (10:24)
[2019-05-26] MEDS: AMOXICILLIN/K CLAV 875/125MG TABLET. PO SCH (10:24)
[2019-05-26] MEDS: CYANOCOBALAMIN (VITAMIN B-12) 1,000 MCG TABLET. PO SCH (10:24)
[2019-05-26] MEDS: INSULIN LISPRO 300 UNITS/3 ML VIAL. SQ SCH ×6 (10:41→17:00)
[2019-05-26 10:43] VITALS: BP 137/57
--- NOTE | 2019-05-26 14:33 | NUR ---
Pharmacy Warfarin Dosing Note S:Pharmacy consulted to assist with anticoagulation therapy started with target INR: 2 -3 O:CORAZON BLANCAS is a 78 year old M with Atrial Fibrillation LABS: Last INR: 1.3 Last HGB: 7.1 Last HCT: 21.6 Last PLT: 154 Last dose of 7.5 mg given on 05/25/19 at 2116 Previous Regimen: 2 mg/day Vitamin K given: N Drug Interaction Changes: New Interacting Drug Ongoing Drug Interactions: ASA, Zosyn A:INR of 1.3 is below desired range. Target range for this patient is: 2 -3 P: Warfarin dose: 7.5 mg Today at 1600 Bridge Therapy: None Next INR due TOMORROW. Pharmacy anticoagulation service will continue to follow. BRUNA LOPEZ [facility]MER[facility] [place], 05/26/19 2008
--- NOTE | 2019-05-26 14:36 | PDOC ---
PROGRESS NOTES Assessment Assessment IMPRESSION: Metabolic encephalopathy. Recent 2 cm right cerebellar infarct. Sepsis. Hypotension. CAD. CHF. HTN. HLD. CKD. Bilateral BKA. Obesity. Cognitive impairment. RECOMMENDATIONS/PLAN: He has been treated with Coumadin. ASA 81 mg daily. Lipitor HS. Treat medical diseases. OT/PT. Past Medical History Cardiovascular: AFIB (/flutter), CAD, CHF, HTN, Hyperlipidemia GI: Constipation Rheumatologic: Gout Renal/: Chronic renal failure (IV), Benign prostatic enlarg. Endocrine: Diabetes Dermatology: Basal cell Past Surgical History Pacemaker (/defibrillator), CABG, Cataract Removal, Hernia Repair (ventral), Ton sillectomy, Other (cardiac cath, bilateral BKA, right foot hammertoe) Family History No pertinent hx Social History Single, correction resident, does not use alcohol or tobacco Allergies Coded Allergies: bumetanide (Verified Allergy, Intermediate, 05/31/18) cephalexin (Verified Allergy, Intermediate, 05/16/19) HAS TOLERATED MERREM AND ZOSYN metformin (Verified Allergy, Intermediate, 05/31/18) ROS Negative for fever, chills, weight loss, shortness of breath, chest pain, indigestion, hematochezia, melena, and dysuria. Full 14-point review of systems is negative. MEDICATIONS: Refer to MAR PHYSICAL EXAMINATION: General appearance in subacute distress. HEENT: Normocephalic and nontraumatic. Eyes, nose, ears, and throat are unremarkable. Hearing decrease. Neck is supple. No lymphadenopathy. No Crepitus. Cardiovascular: S1, S2, seemed regular rate and rhythm. Pulmonary: Clear to auscultation bilaterally. Abdomen: Bowel sounds are positive. Abdomen is soft, nontender, and nondistended. Extremities: No rash, lesions, or edema. No restriction of range of motion NEUROLOGICAL EXAMINATION: Awake. Not oriented to time, place and person. PERRL. EOMI. CN: no focal findings. Muscle tone: within normal. Muscle strength: 4 DTR: 1 Plantar reflex: Neutral response bilaterally Gait: not able to walk. BKA. Sensory exam: no abnormal findings. No cerebellar signs elicited. F-T-N test fine. Objective Objective Vital Signs Date Time Temp Pulse Resp B/P (MAP) Pulse Ox O2 Delivery O2 Flow Rate FiO2 05/26/19 10:43 98.2 69 17 137/57 (83) 97 Room Air 3.0 98.2 Intake and Output 05/26/19 07:00 Intake Total 240 ml Output Total 3500 ml Balance -3260 ml Intake Oral 240 ml Output Urine Total 3500 ml Vitals Signs Vitals VS - Last 72 Hours, by Label Date Time Temp Pulse Resp B/P (MAP) Pulse Ox O2 Delivery O2 Flow Rate FiO2 05/26/19 10:43 98.2 69 17 137/57 (83) 97 Room Air 3.0 98.2 05/26/19 09:00 70 107/27 05/26/19 08:00 Room Air 3.0 05/26/19 07:45 98.2 70 20 107/27 (53) 97 Room Air 98.2 05/26/19 03:38 98.1 69 20 135/52 (79) 100 Room Air 98.1 05/25/19 23:25 98.1 69 18 155/32 (73) 96 Room Air 98.1 05/25/19 19:49 98.4 69 20 158/43 (81) 98 Room Air 98.4 05/25/19 14:55 98.1 69 18 133/43 (73) 97 Room Air 98.1 05/25/19 11:51 97.5 69 20 142/31 (68) 97 Room Air 97.5 05/25/19 09:08 69 149/43 05/25/19 08:00 Room Air 05/25/19 07:50 98.0 69 20 149/43 (78) 99 Room Air 98.0 Laboratory Laboratory Laboratory Tests Test 05/25/19 16:49 05/25/19 21:03 05/26/19 06:05 05/26/19 08:15 Glucose (Fingerstick) 121 mg/dL (70-99) 151 mg/dL (70-99) 161 mg/dL (70-99) Prothrombin Time 16.0 SEC (11.7-14.0) Prothromb Time International Ratio 1.3 (0.8-1.1) Sodium Level 134 mmol/L (136-145) Potassium Level 3.7 mmol/L (3.5-5.1) Chloride Level 96 mmol/L (98-107) Carbon Dioxide Level 29 mmol/L (21-32) Anion Gap 9 (6-14) Blood Urea Nitrogen 105 mg/dL (8-26) Creatinine 2.4 mg/dL (0.7-1.3) Estimated GFR (Cockcroft-Gault) 26.3 Glucose Level 184 mg/dL (70-99) Calcium Level 8.8 mg/dL (8.5-10.1) Phosphorus Level 3.3 mg/dL (2.6-4.7) Magnesium Level 2.2 mg/dL (1.8-2.4) Microbiology 05/16/19 Blood Culture - Final, Complete NO GROWTH AFTER 5 DAYS Medication Medications Current Medications Torsemide (Demadex) 40 mg DAILY PO Last administered on 05/26/19at 10:21; Start 05/26/19 at 09:00 Warfarin Sodium (Coumadin) 7.5 mg 1X WARF ONCE PO Last administered on 05/25/19at 15:27; Start 05/25/19 at 16:00; Stop 05/25/19 at 16:01; Status DC Comment Review of Relevant I have reviewed the following items nestor (where applicable) has been applied. LUCA MCKEON MD May 26, 2019 14:36
[2019-05-26 15:00] VITALS: BP 136/56
--- NOTE | 2019-05-26 15:00 | PDOC ---
PROGRESS NOTES Subjective Subjective SEEN IN FOLLOW UP OF CKD4 Objective Objective Vital Signs Date Time Temp Pulse Resp B/P (MAP) Pulse Ox O2 Delivery O2 Flow Rate FiO2 05/26/19 10:43 98.2 69 17 137/57 (83) 97 Room Air 3.0 98.2 Intake and Output 05/26/19 06:59 Intake Total 240 ml Output Total 3500 ml Balance -3260 ml Intake Oral 240 ml Output Urine Total 3500 ml Physical Exam Abdomen: Normal bowel sounds, Soft, No tenderness, No hepatosplenomegaly, No masses Heart: Regular rate, Normal S1, Normal S2, No murmurs, Gallops Extremities: No clubbing, No cyanosis, No edema, Normal pulses, No tenderness/swelling General: Other (LETHARGIC) Lungs: Clear to auscultation, Normal air movement Psych/Mental Status: Other (LETHARGIC) Diagnosis RENAL FAILURE: Chronic (CKD stage IV) Assessment Assessment Problems Medical Problems: (1) Acute kidney injury superimposed on CKD Status: Acute (2) Acute on chronic combined systolic (congestive) and diastolic (congestive) heart failure Status: Acute (3) Acute respiratory failure Status: Acute (4) Acute respiratory failure with hypoxia Status: Acute (5) ABBY (acute kidney injury) Status: Acute (6) CAD (coronary artery disease) Status: Chronic (7) Chronic a-fib Status: Chronic (8) Chronic kidney disease, stage 4 (severe) Status: Acute (9) CKD (chronic kidney disease), stage III Status: Chronic (10) CVA (cerebral vascular accident) Status: Acute (11) DM2 (diabetes mellitus, type 2) Status: Chronic (12) Dyspnea Status: Acute (13) HCAP (healthcare-associated pneumonia) Status: Acute (14) Metabolic encephalopathy Status: Acute (15) Pleural effusion on left Status: Acute (16) Pleural effusion, left Status: Acute (17) Pulmonary edema Status: Acute (18) Sepsis Status: Acute (19) Severe sepsis Status: Acute Plan Plan of Care RENAL FUNCTION IS POOR BUT STABLE. CONT TREATMENT OF SEPSIS Comment Review of Relevant I have reviewed the following items nestor (where applicable) has been applied. Labs Laboratory Tests Test 05/24/19 16:41 05/24/19 18:01 05/24/19 20:39 05/25/19 04:10 Glucose (Fingerstick) 91 mg/dL (70-99) 102 mg/dL (70-99) 100 mg/dL (70-99) 93 mg/dL (70-99) Test 05/25/19 05:50 05/25/19 07:13 05/25/19 12:30 05/25/19 16:49 White Blood Count 7.3 x10^3/uL (4.0-11.0) Red Blood Count 2.51 x10^6/uL (4.30-5.70) Hemoglobin 7.1 g/dL (13.0-17.5) Hematocrit 21.6 % (39.0-53.0) Mean Corpuscular Volume 86 fL (79-100) Mean Corpuscular Hemoglobin 28 pg (25-35) Mean Corpuscular Hemoglobin Concent 33 g/dL (31-37) Red Cell Distribution Width 21.6 % (11.5-14.5) Platelet Count 154 x10^3/uL (140-400) Neutrophils (%) (Auto) 73 % (31-73) Lymphocytes (%) (Auto) 10 % (24-48) Monocytes (%) (Auto) 8 % (0-9) Eosinophils (%) (Auto) 8 % (0-3) Basophils (%) (Auto) 0 % (0-3) Neutrophils # (Auto) 5.3 x10^3/uL (1.8-7.7) Lymphocytes # (Auto) 0.8 x10^3/uL (1.0-4.8) Monocytes # (Auto) 0.6 x10^3/uL (0.0-1.1) Eosinophils # (Auto) 0.5 x10^3/uL (0.0-0.7) Basophils # (Auto) 0.0 x10^3/uL (0.0-0.2) Prothrombin Time 15.1 SEC (11.7-14.0) Prothromb Time International Ratio 1.2 (0.8-1.1) Sodium Level 135 mmol/L (136-145) Potassium Level 3.8 mmol/L (3.5-5.1) Chloride Level 97 mmol/L (98-107) Carbon Dioxide Level 29 mmol/L (21-32) Anion Gap 9 (6-14) Blood Urea Nitrogen 104 mg/dL (8-26) Creatinine 2.6 mg/dL (0.7-1.3) Estimated GFR (Cockcroft-Gault) 24.0 Glucose Level 94 mg/dL (70-99) Calcium Level 8.8 mg/dL (8.5-10.1) Glucose (Fingerstick) 93 mg/dL (70-99) 130 mg/dL (70-99) 121 mg/dL (70-99) Test 05/25/19 21:03 05/26/19 06:05 05/26/19 08:15 Glucose (Fingerstick) 151 mg/dL (70-99) 161 mg/dL (70-99) Prothrombin Time 16.0 SEC (11.7-14.0) Prothromb Time International Ratio 1.3 (0.8-1.1) Sodium Level 134 mmol/L (136-145) Potassium Level 3.7 mmol/L (3.5-5.1) Chloride Level 96 mmol/L (98-107) Carbon Dioxide Level 29 mmol/L (21-32) Anion Gap 9 (6-14) Blood Urea Nitrogen 105 mg/dL (8-26) Creatinine 2.4 mg/dL (0.7-1.3) Estimated GFR (Cockcroft-Gault) 26.3 Glucose Level 184 mg/dL (70-99) Calcium Level 8.8 mg/dL (8.5-10.1) Phosphorus Level 3.3 mg/dL (2.6-4.7) Magnesium Level 2.2 mg/dL (1.8-2.4) Laboratory Tests Test 05/25/19 16:49 05/25/19 21:03 05/26/19 06:05 05/26/19 08:15 Glucose (Fingerstick) 121 mg/dL (70-99) 151 mg/dL (70-99) 161 mg/dL (70-99) Prothrombin Time 16.0 SEC (11.7-14.0) Prothromb Time International Ratio 1.3 (0.8-1.1) Sodium Level 134 mmol/L (136-145) Potassium Level 3.7 mmol/L (3.5-5.1) Chloride Level 96 mmol/L (98-107) Carbon Dioxide Level 29 mmol/L (21-32) Anion Gap 9 (6-14) Blood Urea Nitrogen 105 mg/dL (8-26) Creatinine 2.4 mg/dL (0.7-1.3) Estimated GFR (Cockcroft-Gault) 26.3 Glucose Level 184 mg/dL (70-99) Calcium Level 8.8 mg/dL (8.5-10.1) Phosphorus Level 3.3 mg/dL (2.6-4.7) Magnesium Level 2.2 mg/dL (1.8-2.4) Microbiology 05/16/19 Blood Culture - Final, Complete NO GROWTH AFTER 5 DAYS Medications Current Medications Vancomycin HCl (Vanco Per Pharmacy) 1 each PRN DAILY PRN MC SEE COMMENTS Last administered on 05/16/19at 02:12; Start 05/15/19 at 23:00; Stop 05/17/19 at 06:52; Status DC Levofloxacin/ Dextrose 150 ml @ 100 mls/hr 1X ONCE IV Last administered on 05/16/19at 00:17; Start 05/15/19 at 23:30; Stop 05/16/19 at 00:59; Status DC Sodium Chloride 1,000 ml @ 1,000 mls/hr 1X ONCE IV ; Start 05/15/19 at 23:30; Stop 05/16/19 at 00:29; Status DC Sodium Chloride 1,000 ml @ 1,000 mls/hr 1X ONCE IV Last administered on 05/16/19at 00:17; Start 05/15/19 at 23:30; Stop 05/16/19 at 00:29; Status DC Sodium Chloride 1,000 ml @ 1,000 mls/hr 1X ONCE IV Last administered on 05/16/19at 00:17; Start 05/15/19 at 23:30; Stop 05/16/19 at 00:29; Status DC Vancomycin HCl 2 gm/Sodium Chloride 500 ml @ 250 mls/hr 1X ONCE IV Last administered on 05/16/19at 00:15; Start 05/16/19 at 00:00; Stop 05/16/19 at 01:59; Status DC Ondansetron HCl (Zofran) 4 mg PRN Q8HRS PRN IV NAUSEA/VOMITING 1ST CHOICE; Start 05/16/19 at 01:45; Stop 05/17/19 at 01:44; Status DC Vancomycin HCl 1.25 gm/Sodium Chloride 250 ml @ 167 mls/hr Q48H IV ; Start 05/18/19 at 00:00; Stop 05/17/19 at 06:52; Status DC Vancomycin HCl (Vancomycin Trough Level) 1 each 1X ONCE MC ; Start 05/19/19 at 23:30; Stop 05/17/19 at 07:19; Status DC Albumin Human 100 ml @ 100 mls/hr 1X ONCE IV Last administered on 05/16/19at 04:14; Start 05/16/19 at 04:30; Stop 05/16/19 at 05:29; Status DC Norepinephrine Bitartrate 250 ml @ 17.031 mls/ hr CONT PRN IV SEE I/O RECORD Last administered on 05/16/19at 04:21; Start 05/16/19 at 04:00; Stop 05/19/19 at 08:36; Status DC Info (FLU VACCINE SCREEN per RX) 1 each 1X ONCE MC ; Start 05/16/19 at 05:00; Stop 05/16/19 at 05:01; Status UNV Albumin Human 250 ml @ 125 mls/hr 1X ONCE IV Last administered on 05/16/19at 05:11; Start 05/16/19 at 05:30; Stop 05/16/19 at 07:29; Status DC Piperacillin Sod/ Tazobactam Sod 2.25 gm/Sodium Chloride 50 ml @ 100 mls/hr Q6HRS IV Last administered on 05/22/19at 06:02; Start 05/16/19 at 13:00; Stop 05/22/19 at 11:04; Status DC Linezolid/Dextrose 300 ml @ 300 mls/hr Q12HR IV Last administered on 05/22/19at 09:01; Start 05/17/19 at 09:00; Stop 05/22/19 at 11:04; Status DC Furosemide (Lasix) 40 mg 1X ONCE IVP Last administered on 05/17/19at 15:47; Start 05/17/19 at 15:45; Stop 05/17/19 at 15:46; Status DC Amino Acids/ Glycerin/ Electrolytes 1,000 ml @ 80 mls/hr [id number] IV Last administered on 05/25/19at 17:04; Start 05/18/19 at 10:00 Aspirin (Ecotrin) 81 mg DAILYWBKFT PO Last administered on 05/26/19at 10:22; Start 05/18/19 at 12:45 Furosemide (Lasix) 40 mg 1X ONCE IVP Last administered on 05/18/19at 15:39; Start 05/18/19 at 15:00; Stop 05/18/19 at 15:01; Status DC Metoprolol Succinate (Toprol Xl) 25 mg DAILY PO Last administered on 05/25/19 09:08; Start 05/18/19 at 15:00 Insulin Glargine (Lantus Syringe) 12 unit QHS SQ Last administered on 05/20/19at 23:37; Start 05/18/19 at 21:00; Stop 05/21/19 at 09:11; Status DC Insulin Human Lispro (HumaLOG) 0-5 UNITS TIDWMEALS SQ Last administered on 05/20/19 17:22; Start 05/18/19 at 17:00; Stop 05/21/19 at 09:11; Status DC Dextrose (Dextrose 50%-Water Syringe) 12.5 gm PRN Q15MIN PRN IV SEE COMMENTS; Start 05/18/19 at 17:00; Stop 05/21/19 at 09:12; Status DC Dextrose 250 ml PRN Q15MIN PRN IV SEE COMMENTS; Start 05/18/19 at 17:00; Stop 05/21/19 at 09:12; Status DC Insulin Human Lispro (HumaLOG) 6 units TIDWMEALS SQ Last administered on 05/26/19at 10:41; Start 05/18/19 at 17:00 Buspirone HCl (Buspar) 5 mg BID PO Last administered on 05/26/19 10:21; Start 05/19/19 at 10:00 Carbidopa/Levodopa (Sinemet Cr) 1 tab.sa TID PO Last administered on 05/26/19 10:22; Start 05/19/19 at 09:00 Levothyroxine Sodium (Synthroid) 125 mcg DAILY06 PO Last administered on 05/25/19 09:04; Start 05/19/19 at 10:30 Polyethylene Glycol (miraLAX PACKET) 17 gm BID PO Last administered on 05/23/19 21:25; Start 05/19/19 at 09:00 Sevelamer Carbonate (Renvela) 2,400 mg TIDAC PO Last administered on 9/22/19at 09:37; Start 05/19/19 at 11:30; Stop 05/20/19 at 14:10; Status DC Lactobacillus Rhamnosus (Culturelle) 1 cap BID PO Last administered on 05/26/19at 10:23; Start 05/20/19 at 21:00 Insulin Glargine (Lantus Syringe) 15 unit QHS SQ Last administered on 05/25/19at 22:06; Start 05/21/19 at 21:00 Insulin Human Lispro (HumaLOG) 0-9 UNITS TIDWMEALS SQ Last administered on 05/26/19at 10:42; Start 05/21/19 at 09:30 Dextrose (Dextrose 50%-Water Syringe) 12.5 gm PRN Q15MIN PRN IV SEE COMMENTS; Start 05/21/19 at 09:15 Dextrose 250 ml PRN Q15MIN PRN IV SEE COMMENTS; Start 05/21/19 at 09:15 Acetaminophen (Tylenol) 650 mg PRN Q6HRS PRN PO MILD PAIN 1-3; Start 05/21/19 at 09:15 Aspirin (Ecotrin) 81 mg DAILY PO ; Start 05/22/19 at 09:00; Status UNV Bisacodyl (Dulcolax Supp) 10 mg PRN DAILY PRN RC CONSTIPATION; Start 05/21/19 at 09:15 Cyanocobalamin (Vitamin B-12) 1,000 mcg DAILY PO Last administered on 05/26/19at 10:24; Start 05/21/19 at 10:00 Glucose (Insta-Glucose) 15 gm PRN DAILY PRN PO Hypoglycemia; Start 05/21/19 at 09:15 Metolazone (Zaroxolyn) 2.5 mg PRN DAILY PRN PO Weight gain/Fluid gain; Start 05/21/19 at 09:15 Metoprolol Succinate (Toprol Xl) 25 mg DAILY PO ; Start 05/22/19 at 09:00; Status UNV Sodium Monofluorophosphate (Fleet Adult) 133 ml PRN DAILY PRN RC CONSTIPATION; Start 05/21/19 at 09:15 Pantoprazole Sodium (Protonix) 40 mg DAILYAC PO Last administered on 05/26/19at 10:22; Start 05/21/19 at 10:00 Potassium Chloride (Klor-Con) 20 meq PRN DAILY PRN PO IF PRN METOLAZONE GIVEN; Start 05/21/19 at 09:15 Senna/Docusate Sodium (Senna Plus) 1 tab BID PO Last administered on 05/26/19at 10:21; Start 05/21/19 at 10:00 Simethicone (Gas-X) 80 mg PRN Q6HRS PRN PO HEARTBURN / GAS; Start 05/21/19 at 09:15 Torsemide (Demadex) 100 mg BID92 PO Last administered on 05/25/19 09:08; Start 05/21/19 at 10:00; Stop 05/25/19 at 11:47; Status DC Trazodone HCl (Desyrel) 100 mg QHS PO Last administered on 05/25/19at 22:04; Start 05/21/19 at 21:00 Warfarin Sodium (Coumadin) 2 mg DAILY16 PO ; Start 05/21/19 at 16:00; Stop 05/22/19 at 15:45; Status DC Febuxostat (Uloric) 80 mg DAILY PO Last administered on 05/26/19at 10:23; Start 05/21/19 at 10:00 Ferrous Sulfate (Feosol) 325 mg DAILYWBKFT PO Last administered on 05/26/19 10:23; Start 05/21/19 at 10:00 Fluticasone Propionate (Flonase) 2 spray DAILY NS Last administered on 05/25/19at 09:14; Start 05/21/19 at 10:00 Lactobacillus Rhamnosus (Culturelle) 1 cap DAILY PO ; Start 05/22/19 at 09:00; Status UNV Non-Formulary Medication (Melatonin ) 2 tab QHS PO ; Start 05/21/19 at 21:00; Status UNV Metolazone (Zaroxolyn) 7.5 mg DAILY PO Last administered on 05/23/19at 08:57; Start 05/21/19 at 10:00; Stop 05/23/19 at 11:13; Status DC Potassium Chloride (Klor-Con) 40 meq DAILYWBKFT PO Last administered on 05/26/19at 10:22; Start 05/21/19 at 10:00 Atorvastatin Calcium (Lipitor) 5 mg QHS PO Last administered on 05/25/19at 22:04; Start 05/21/19 at 21:00 Vitamin D (Vitamin D3) 5,000 unit DAILY PO Last administered on 05/26/19at 10:24; Start 05/21/19 at 10:00 Warfarin Sodium (Coumadin Per Pharmacy) 1 each PRN DAILY PRN MC SEE COMMENTS Last administered on 05/26/19at 14:31; Start 05/21/19 at 09:15 Ondansetron HCl (Zofran) 4 mg PRN Q6HRS PRN IV NAUSEA/VOMITING Last administered on 05/22/19at 23:05; Start 05/21/19 at 11:00 Amoxicillin/ Clavulanate Potassium (Augmentin 875/ 125mg) 1 tab DAILY PO Last administered on 05/26/19at 10:24; Start 05/23/19 at 09:00 Warfarin Sodium (Coumadin) 5 mg 1X WARF ONCE PO ; Start 05/22/19 at 16:00; Stop 05/22/19 at 16:01; Status DC Warfarin Sodium (Coumadin) 5 mg 1X WARF ONCE PO Last administered on 05/23/19at 17:59; Start 05/23/19 at 17:00; Stop 05/23/19 at 17:01; Status DC Warfarin Sodium (Coumadin) 6 mg 1X WARF ONCE PO Last administered on 05/24/19at 21:16; Start 05/24/19 at 16:00; Stop 05/24/19 at 16:01; Status DC Sodium Chloride 1,000 ml @ 75 mls/hr 1X ONCE IV Last administered on 05/24/19at 14:48; Start 05/24/19 at 13:00; Stop 05/25/19 at 02:19; Status DC Hydralazine HCl (Apresoline Inj) 10 mg PRN Q4HRS PRN IVP ELEVATED BP, SEE COMMENTS; Start 05/24/19 at 14:15 Warfarin Sodium (Coumadin) 7.5 mg 1X WARF ONCE PO Last administered on 05/25/19at 15:27; Start 05/25/19 at 16:00; Stop 05/25/19 at 16:01; Status DC Torsemide (Demadex) 40 mg DAILY PO Last administered on 05/26/19at 10:21; Start 05/26/19 at 09:00 Warfarin Sodium (Coumadin) 7.5 mg 1X WARF ONCE PO ; Start 05/26/19 at 16:00; Stop 05/26/19 at 16:01 Active Scripts Active Novolog Flexpen (Insulin Aspart) 300 Units/3 Ml Insuln.pen 8 Units SQ TIDWMEALS Reported Trazodone Hcl 100 Mg Tablet 1 Tab PO QHS Tramadol Hcl 50 Mg Tablet 50 Mg PO Q8HRS Torsemide 20 Mg Tablet 100 Mg PO BID Temazepam 15 Mg Capsule 1 Cap PO QHS Sinemet Cr 25-100 Tablet (Carbidopa/Levodopa) 1 Each Tablet.er 1 Tab PO TID Simethicone 80 Mg Tab.chew 80 Mg PO PRN Q6HRS PRN Senna Plus 8.6-50 mg Tablet (Sennosides/Docusate Sodium) 1 Each Tablet 1 Each PO BID Renvela (Sevelamer Carbonate) 800 Mg Tablet 3 Tab PO TIDAC Protonix (Pantoprazole Sodium) 40 Mg Tablet.dr 40 Mg PO DAILYAC Pravastatin Sodium 20 Mg Tablet 1 Tab PO HS Potassium Chloride 20 Meq Tablet.er 2 Tab PO DAILY Klor-Con M20 (Potassium Chloride) 20 Meq Tab.er.prt 1 Tab PO PRN DAILY PRN Novolog (Insulin Aspart) 100 Unit/1 Ml Cartridge 8 Unit SQ TIDBFRMEAL NITROGLYCERIN SubLingual (Nitroglycerin) 0.4 Mg Tab.subl 1 Tab SL UD PRN Miralax (Polyethylene Glycol 3350) 17 Gm Powd.pack 1 Packet PO BID Metoprolol Succinate ( Xl ) (Metoprolol Succinate) 25 Mg Tab.er.24h 1 Tab PO DAILY Metolazone 5 Mg Tablet 1.5 Tab PO DAILY Metolazone 2.5 Mg Tablet 2.5 Mg PO PRN DAILY PRN Melatonin 3 Mg Tablet 2 Tab PO QHS Levothyroxine Sodium 125 Mcg Tablet 1 Tab PO DAILY Lantus Solostar (Insulin Glargine,Hum.rec.anlog) 100 Unit/1 Ml Insuln.pen 12 Unit SQ QHS Acidophilus (Lactobacillus Acidophilus) 1 Each Capsule 1 Each PO DAILY Glucose Gel (Dextrose) 38 Gm Gel..gram. 38 Gm PO PRN PRN Gabapentin (Gabapentin) 100 Mg Capsule 100 Mg PO TID Flonase Allergy Relief (Fluticasone Propionate) 9.9 Ml [place].susp 2 Sprays NS DAILY Fleet Enema (Na Phos,M-B/Na Phos,Di-Ba) 133 Ml Enema 133 Ml RC PRN PRN Ferrous Gluconate 240 Mg Tablet 240 Mg PO DAILY Uloric (Febuxostat) 80 Mg Tablet 1 Tab PO DAILY Cymbalta (Duloxetine Hcl) 60 Mg Capsule. 1 Cap PO HS Cymbalta (Duloxetine Hcl) 30 Mg Capsule.dr Alcazar Cap PO DAILY Vitamin B-12 (Cyanocobalamin (Vitamin B-12)) 1,000 Mcg Tablet 1 Tab PO DAILY Coumadin (Warfarin Sodium) 2 Mg Tablet 1 Tab PO DAILY Vitamin D3 (Cholecalciferol (Vitamin D3)) 5,000 Unit Tablet 1 Tab PO DAILY Buspirone Hcl 5 Mg Tablet 1 Tab PO BID Bisacodyl 10 Mg Supp.rect 10 Mg RC PRN DAILY PRN Tylenol (Acetaminophen) 325 Mg Tablet 2 Tab PO PRN Q6HRS PRN Sertraline Hcl 100 Mg Tablet 100 Mg PO DAILY Aspir 81 (Aspirin) 81 Mg Tablet. 1 Tab PO DAILY Vitals/I & O Vital Sign - Last 24 Hours 05/25/19 05/25/19 05/26/19 05/26/19 19:49 23:25 03:38 07:45 Temp 98.4 98.1 98.1 98.2 98.4 98.1 98.1 98.2 Pulse 69 69 69 70 Resp 20 18 20 20 B/P (MAP) 158/43 (81) 155/32 (73) 135/52 (79) 107/27 (53) Pulse Ox 98 96 100 97 O2 Delivery Room Air Room Air Room Air Room Air 05/26/19 05/26/19 05/26/19 08:00 09:00 10:43 Temp 98.2 98.2 Pulse 70 69 Resp 17 B/P (MAP) 107/27 137/57 (83) Pulse Ox 97 O2 Delivery Room Air Room Air O2 Flow Rate 3.0 3.0 Intake and Output 05/25/19 05/25/19 05/26/19 14:59 22:59 06:59 Intake Total 240 ml 0 ml Output Total 2200 ml 1300 ml Balance -1960 ml -1300 ml CHEYENNE HUGHES MD May 26, 2019 15:00
[2019-05-26] MEDS ORDERED: WARFARIN 7.5 MG TABLET. PO ONE (16:00)
[2019-05-26 19:20] VITALS: BP 122/37
[2019-05-26] MEDS: INSULIN GLARGINE SYRINGE. SQ SCH (21:52)
[2019-05-26] MEDS: traZODone 100 MG TABLET. PO SCH (21:57)
[2019-05-26] MEDS: ATORVASTATIN CALCIUM 10 MG TABLET. PO SCH (21:58)
[2019-05-26 23:20] VITALS: BP 119/56
[2019-05-27] VITALS (12 sets, daily range): BP systolic 94–142; BP diastolic 36–62
[2019-05-27] MEDS: LEVOTHYROXINE 125 MCG TABLET PO SCH (05:44)
[2019-05-27] MEDS: AMINO AC 3%/ELECTROLYTE/GLYCER 1,000 ML IV SCH ×2 (05:45→22:01)
[2019-05-27 06:39] LABS: BASO # 0.1 x10^3/uL (0.0-0.2); BASO % 1 % (0-3); EOS # 0.3 x10^3/uL (0.0-0.7); EOS % 4 % (0-3); LYMPH # 0.8 x10^3/uL (1.0-4.8); LYMPH % 10 % (24-48); MEAN CORPUSCULAR HEMOGLOBIN 28 pg (25-35); MEAN CORPUSCULAR HGB CONC 33 g/dL (31-37); MEAN CORPUSCULAR VOLUME 85 fL (79-100); MONO # 0.9 x10^3/uL (0.0-1.1); MONO % 11 % (0-9); NEUT # 5.7 x10^3/uL (1.8-7.7); NEUT % 73 % (31-73); PLATELET COUNT 146 x10^3/uL (140-400); RED BLOOD COUNT 2.31 x10^6/uL (4.30-5.70); RED CELL DISTRIBUTION WIDTH 21.1 % (11.5-14.5); WHITE BLOOD COUNT 7.8 x10^3/uL (4.0-11.0)
[2019-05-27 06:47] LABS: HEMATOCRIT 19.6 % (39.0-53.0); HEMOGLOBIN 6.5 g/dL (13.0-17.5)
[2019-05-27 06:57] LABS: CALCIUM 8.7 mg/dL (8.5-10.1); CREATININE 2.3 mg/dL (0.7-1.3); GFR 27.6; POTASSIUM 4.4 mmol/L (3.5-5.1)
[2019-05-27] MEDS: ASPIRIN ENTERIC COATED 81 MG TABLET.DR. PO SCH (08:00)
--- NOTE | 2019-05-27 08:22 | PDOC ---
PULMONARY PROGRESS NOTES Subjective on room air, has nausea, no sob, has occ cough Vitals Vital Signs Date Time Temp Pulse Resp B/P (MAP) Pulse Ox O2 Delivery O2 Flow Rate FiO2 05/27/19 03:20 97.9 69 18 108/36 (60) 92 Room Air 97.9 05/26/19 10:43 3.0 ROS: No Increase Cough General: Alert, No acute distress Lungs: Other (decrease left base) Cardiovascular: S1, S2 Abdomen: Soft, Non-tender Neuro Exam: Alert Extremities: Other (bka) Skin: Warm, Other (BLE BKA) Labs Laboratory Tests Test 05/25/19 12:30 05/25/19 16:49 05/25/19 21:03 05/26/19 06:05 Glucose (Fingerstick) 130 mg/dL (70-99) 121 mg/dL (70-99) 151 mg/dL (70-99) Prothrombin Time 16.0 SEC (11.7-14.0) Prothromb Time International Ratio 1.3 (0.8-1.1) Sodium Level 134 mmol/L (136-145) Potassium Level 3.7 mmol/L (3.5-5.1) Chloride Level 96 mmol/L (98-107) Carbon Dioxide Level 29 mmol/L (21-32) Anion Gap 9 (6-14) Blood Urea Nitrogen 105 mg/dL (8-26) Creatinine 2.4 mg/dL (0.7-1.3) Estimated GFR (Cockcroft-Gault) 26.3 Glucose Level 184 mg/dL (70-99) Calcium Level 8.8 mg/dL (8.5-10.1) Phosphorus Level 3.3 mg/dL (2.6-4.7) Magnesium Level 2.2 mg/dL (1.8-2.4) Test 05/26/19 08:15 05/26/19 11:56 05/26/19 16:57 05/26/19 21:33 Glucose (Fingerstick) 161 mg/dL (70-99) 171 mg/dL (70-99) 104 mg/dL (70-99) 86 mg/dL (70-99) Test 05/27/19 05:47 05/27/19 07:29 White Blood Count 7.8 x10^3/uL (4.0-11.0) Red Blood Count 2.31 x10^6/uL (4.30-5.70) Hemoglobin 6.5 g/dL (13.0-17.5) Hematocrit 19.6 % (39.0-53.0) Mean Corpuscular Volume 85 fL (79-100) Mean Corpuscular Hemoglobin 28 pg (25-35) Mean Corpuscular Hemoglobin Concent 33 g/dL (31-37) Red Cell Distribution Width 21.1 % (11.5-14.5) Platelet Count 146 x10^3/uL (140-400) Neutrophils (%) (Auto) 73 % (31-73) Lymphocytes (%) (Auto) 10 % (24-48) Monocytes (%) (Auto) 11 % (0-9) Eosinophils (%) (Auto) 4 % (0-3) Basophils (%) (Auto) 1 % (0-3) Neutrophils # (Auto) 5.7 x10^3/uL (1.8-7.7) Lymphocytes # (Auto) 0.8 x10^3/uL (1.0-4.8) Monocytes # (Auto) 0.9 x10^3/uL (0.0-1.1) Eosinophils # (Auto) 0.3 x10^3/uL (0.0-0.7) Basophils # (Auto) 0.1 x10^3/uL (0.0-0.2) Sodium Level 135 mmol/L (136-145) Potassium Level 4.4 mmol/L (3.5-5.1) Chloride Level 98 mmol/L (98-107) Carbon Dioxide Level 28 mmol/L (21-32) Anion Gap 9 (6-14) Blood Urea Nitrogen 106 mg/dL (8-26) Creatinine 2.3 mg/dL (0.7-1.3) Estimated GFR (Cockcroft-Gault) 27.6 Glucose Level 151 mg/dL (70-99) Calcium Level 8.7 mg/dL (8.5-10.1) Glucose (Fingerstick) 170 mg/dL (70-99) Laboratory Tests Test 05/26/19 11:56 05/26/19 16:57 05/26/19 21:33 05/27/19 05:47 Glucose (Fingerstick) 171 mg/dL (70-99) 104 mg/dL (70-99) 86 mg/dL (70-99) White Blood Count 7.8 x10^3/uL (4.0-11.0) Red Blood Count 2.31 x10^6/uL (4.30-5.70) Hemoglobin 6.5 g/dL (13.0-17.5) Hematocrit 19.6 % (39.0-53.0) Mean Corpuscular Volume 85 fL (79-100) Mean Corpuscular Hemoglobin 28 pg (25-35) Mean Corpuscular Hemoglobin Concent 33 g/dL (31-37) Red Cell Distribution Width 21.1 % (11.5-14.5) Platelet Count 146 x10^3/uL (140-400) Neutrophils (%) (Auto) 73 % (31-73) Lymphocytes (%) (Auto) 10 % (24-48) Monocytes (%) (Auto) 11 % (0-9) Eosinophils (%) (Auto) 4 % (0-3) Basophils (%) (Auto) 1 % (0-3) Neutrophils # (Auto) 5.7 x10^3/uL (1.8-7.7) Lymphocytes # (Auto) 0.8 x10^3/uL (1.0-4.8) Monocytes # (Auto) 0.9 x10^3/uL (0.0-1.1) Eosinophils # (Auto) 0.3 x10^3/uL (0.0-0.7) Basophils # (Auto) 0.1 x10^3/uL (0.0-0.2) Sodium Level 135 mmol/L (136-145) Potassium Level 4.4 mmol/L (3.5-5.1) Chloride Level 98 mmol/L (98-107) Carbon Dioxide Level 28 mmol/L (21-32) Anion Gap 9 (6-14) Blood Urea Nitrogen 106 mg/dL (8-26) Creatinine 2.3 mg/dL (0.7-1.3) Estimated GFR (Cockcroft-Gault) 27.6 Glucose Level 151 mg/dL (70-99) Calcium Level 8.7 mg/dL (8.5-10.1) Test 05/27/19 07:29 Glucose (Fingerstick) 170 mg/dL (70-99) Medications Active Scripts Medications Dose Route/Sig Max Daily Dose Days Date Category Trazodone Hcl 100 Mg Tablet 1 Tab PO QHS 05/16/19 Reported Tramadol Hcl 50 Mg Tablet 50 Mg PO Q8HRS 05/16/19 Reported Torsemide 20 Mg Tablet 100 Mg PO BID 05/16/19 Reported Temazepam 15 Mg Capsule 1 Cap PO QHS 05/16/19 Reported Sinemet Cr 25-100 Tablet (Carbidopa/Levodopa) 1 Each Tablet.er 1 Tab PO TID 05/16/19 Reported Simethicone 80 Mg Tab.chew 80 Mg PO PRN Q6HRS PRN 05/16/19 Reported Senna Plus 8.6-50 mg Tablet (Sennosides/Docusate Sodium) 1 Each Tablet 1 Each PO BID 05/16/19 Reported Renvela (Sevelamer Carbonate) 800 Mg Tablet 3 Tab PO TIDAC 05/16/19 Reported Protonix (Pantoprazole Sodium) 40 Mg Tablet.dr 40 Mg PO DAILYAC 05/16/19 Reported Pravastatin Sodium 20 Mg Tablet 1 Tab PO HS 05/16/19 Reported Potassium Chloride 20 Meq Tablet.er 2 Tab PO DAILY 05/16/19 Reported Klor-Con M20 (Potassium Chloride) 20 Meq Tab.er.prt 1 Tab PO PRN DAILY PRN 05/16/19 Reported Novolog (Insulin Aspart) 100 Unit/1 Ml Cartridge 8 Unit SQ TIDBFRMEAL 05/16/19 Reported NITROGLYCERIN SubLingual (Nitroglycerin) 0.4 Mg Tab.subl 1 Tab SL UD PRN 05/16/19 Reported Miralax (Polyethylene Glycol 3350) 17 Gm Powd.pack 1 Packet PO BID 05/16/19 Reported Metoprolol Succinate ( Xl ) (Metoprolol Succinate) 25 Mg Tab.er.24h 1 Tab PO DAILY 05/16/19 Reported Metolazone 5 Mg Tablet 1.5 Tab PO DAILY 05/16/19 Reported Metolazone 2.5 Mg Tablet 2.5 Mg PO PRN DAILY PRN 05/16/19 Reported Melatonin 3 Mg Tablet 2 Tab PO QHS 05/16/19 Reported Levothyroxine Sodium 125 Mcg Tablet 1 Tab PO DAILY 05/16/19 Reported Lantus Solostar (Insulin Glargine,Hum.rec.anlog) 100 Unit/1 Ml Insuln.pen 12 Unit SQ QHS 05/16/19 Reported Acidophilus (Lactobacillus Acidophilus) 1 Each Capsule 1 Each PO DAILY 05/16/19 Reported Glucose Gel (Dextrose) 38 Gm Gel..gram. 38 Gm PO PRN PRN 05/16/19 Reported Gabapentin (Gabapentin) 100 Mg Capsule 100 Mg PO TID 05/16/19 Reported Flonase Allergy Relief (Fluticasone Propionate) 9.9 Ml [place].susp 2 Sprays NS DAILY 05/16/19 Reported Fleet Enema (Na Phos,M-B/Na Phos,Di-Ba) 133 Ml Enema 133 Ml RC PRN PRN 05/16/19 Reported Ferrous Gluconate 240 Mg Tablet 240 Mg PO DAILY 05/16/19 Reported Uloric (Febuxostat) 80 Mg Tablet 1 Tab PO DAILY 05/16/19 Reported Cymbalta (Duloxetine Hcl) 60 Mg Capsule.dr 1 Cap PO HS 05/16/19 Reported Cymbalta (Duloxetine Hcl) 30 Mg Capsule.dr 1 Cap PO DAILY 05/16/19 Reported Vitamin B-12 (Cyanocobalamin (Vitamin B-12)) 1,000 Mcg Tablet 1 Tab PO DAILY 05/16/19 Reported Coumadin (Warfarin Sodium) 2 Mg Tablet 1 Tab PO DAILY 05/16/19 Reported Vitamin D3 (Cholecalciferol (Vitamin D3)) 5,000 Unit Tablet 1 Tab PO DAILY 05/16/19 Reported Buspirone Hcl 5 Mg Tablet 1 Tab PO BID 05/16/19 Reported Bisacodyl 10 Mg Supp.rect 10 Mg RC PRN DAILY PRN 05/16/19 Reported Tylenol (Acetaminophen) 325 Mg Tablet 2 Tab PO PRN Q6HRS PRN 05/16/19 Reported Sertraline Hcl 100 Mg Tablet 100 Mg PO DAILY 03/08/16 Reported Aspir 81 (Aspirin) 81 Mg Tablet. 1 Tab PO DAILY 03/08/16 Reported Novolog Flexpen (Insulin Aspart) 300 Units/3 Ml Insuln.pen 8 Units SQ TIDWMEALS 06/19/[address] CHEST 1. Moderate left lower lobe lung consolidation with moderate size left pleural effusion identified. 2. Moderate prominent appearing bilateral interstitial lung markings likely congestive changes. 3. Cholelithiasis. Electronically signed by: Austen Biggs MD (05/17/2019 9:42 AM) [facility] CXR 05/24 CHF/ left effusion Impression . 1. acute hypoxic respiratory failure. secondary to CHF and pneumonia, clinically stable 2. Acute kidney injury on chronic kidney disease. 3. Abnormal chest x-ray with bilateral interstitial infiltrates with left-sided pleural effusion along with cardiomegaly c/w decompensated Systolic HF 5. Chronic anticoagulation 6. Cardiomyopathy EF 40-45%-stable 7. Hypotension --resolved 8. Encephalopathy , improved, per neuro Plan . 1. Continue with antibiotic per ID. now on PO 2. Monitor effusion for now, asymptomatic at present. Marked azotemia preventing further diuresis 3. Monitor white cell count, nl now. 4. EF 40-45% 5. Dysphagia diet, elevate hob 6. Monitor renal function. 7. Follow Neurology recommendations. 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 8. d/w RN/ no further rec CLIFF DELGADO MD May 27, 2019 08:22
[2019-05-27] MEDS: METOPROLOL SUCC 24HR ER 25 MG TAB.ER.24H. PO SCH (09:00)
[2019-05-27] MEDS: CYANOCOBALAMIN (VITAMIN B-12) 1,000 MCG TABLET. PO SCH (09:53)
[2019-05-27] MEDS: busPIRone 5 MG TABLET. PO SCH ×2 (09:53→22:02)
[2019-05-27] MEDS: FERROUS SULFATE 325 MG TABLET. PO SCH (09:54)
[2019-05-27] MEDS: CHOLECALCIFEROL (VITAMIN D3) 5,000 UNIT CAPSULE PO SCH (09:55)
[2019-05-27] MEDS: POTASSIUM CHLORIDE 20 MEQ TABLET.ER. PO SCH (09:55)
[2019-05-27] MEDS: CARBIDOPA/LEVODOPA CR 25/100MG TABLET.SA. PO SCH ×3 (09:56→22:02)
[2019-05-27] MEDS: AMOXICILLIN/K CLAV 875/125MG TABLET. PO SCH (09:56)
[2019-05-27] MEDS: PANTOPRAZOLE 40 MG TABLET.DR. PO SCH (09:56)
[2019-05-27] MEDS: SENNOSIDES/DOCUSATE 8.6/50MG TABLET. PO SCH ×2 (09:56→21:00)
[2019-05-27] MEDS: FEBUXOSTAT 40 MG TABLET PO SCH (09:57)
[2019-05-27] MEDS: LACTOBACILLUS RHAMNOSUS GG 1 CAPSULE. PO SCH ×2 (09:57→22:02)
[2019-05-27] MEDS: FLUTICASONE 50MCG/NASAL SPRAY 16GM BOTTLE. NS SCH (09:57)
[2019-05-27] MEDS: POLYETHYLENE GLYCOL 3350 17 GM PACKET. PO SCH ×2 (09:58→21:00)
[2019-05-27] MEDS: TORSEMIDE 20 MG TABLET. PO SCH (10:03)
[2019-05-27] MEDS: INSULIN LISPRO 300 UNITS/3 ML VIAL. SQ SCH ×6 (10:09→17:17)
--- NOTE | 2019-05-27 10:30 | PDOC ---
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 cellulitis ABBY on CKD - likely this is vasomotor nephropathy due to poor PO intake Afib Cerebellar infarct - on CT scan, ? age Cardiomyopathy with pacemaker Severe protein calorie malnutrition\ ON PPN dysphagia -on dysphagia 1 diet uncontrolled hypertension 05/24 POOR DENTITION 05/24 marked nausea did not shannan luncH, wretching d/w RN, WILL ORDER KUB R/O ILEUS 05/25 REFUSING TO EAT WILL CONSULT PALLIATIVE CARE 05/26 if eats 50% of lunch and breakfast, will consider d/c later today po augmentin x 4 days MAY BE CAUSE OF NAUSEA CONSIDER PALLIATIVE CARE cbc in am 05/27 hgb 6.5 transfuse 1 unit PRBC'S 28 min pt exam, chart review, > 50% of time spent with exam, chart review, pt care coordination History of Present Illness History of Present Illness emesis still SNU resident needs t be fed in SNU HE is bilateral BKA - so wheelchair bound HE is DNR< active med treatment' he is on warf for maybe bed bound issues, bilateral BKA PLAN: adjust insulin today SSI high dose SHIFT pls IV zyvox, zosyn per ID--switched to augmentin per ID DNR WArf per pharmacy goal 2-3 held off sedating meds for now like gabapentin, trazadone, cymbalta etc COnt dysphagia 1 diet dc back to SNF soon Vitals Vitals Vital Signs Date Time Temp Pulse Resp B/P (MAP) Pulse Ox O2 Delivery O2 Flow Rate FiO2 05/27/19 09:00 70 124/55 05/27/19 07:00 97.9 18 94 Room Air 3.0 97.9 Physical Exam Physical Exam GENERAL: awake CANNOT TELL ME CORRECT YEAR HEENT: OC/OP- clean NECK: Supple. HEART: S1, S2 with a 2/6 murmur. Pacemaker ABDOMEN: Soft, nontender. No guarding. GENITOURINARY: Garcia in place. EXTREMITIES: Bilateral lower extremity BKAs Mild RUE erythema and dryness SKIN: warm to touch NEUROLOGIC: Nonverbal RIJ clean General: Alert, Cooperative, No acute distress, Other (LETHARGIC) Heart: Regular rate, Normal S1, Normal S2, No murmurs, Gallops Lungs: Clear, Other (decrease left base) Abdomen: Normal bowel sounds, Soft, No tenderness, No hepatosplenomegaly, No masses Extremities: No clubbing, No cyanosis, No edema, Normal pulses, No tenderness/swelling Skin: No rashes Labs LABS Laboratory Tests Test 05/26/19 11:56 05/26/19 16:57 05/26/19 21:33 05/27/19 05:47 Glucose (Fingerstick) 171 mg/dL (70-99) 104 mg/dL (70-99) 86 mg/dL (70-99) White Blood Count 7.8 x10^3/uL (4.0-11.0) Red Blood Count 2.31 x10^6/uL (4.30-5.70) Hemoglobin 6.5 g/dL (13.0-17.5) Hematocrit 19.6 % (39.0-53.0) Mean Corpuscular Volume 85 fL (79-100) Mean Corpuscular Hemoglobin 28 pg (25-35) Mean Corpuscular Hemoglobin Concent 33 g/dL (31-37) Red Cell Distribution Width 21.1 % (11.5-14.5) Platelet Count 146 x10^3/uL (140-400) Neutrophils (%) (Auto) 73 % (31-73) Lymphocytes (%) (Auto) 10 % (24-48) Monocytes (%) (Auto) 11 % (0-9) Eosinophils (%) (Auto) 4 % (0-3) Basophils (%) (Auto) 1 % (0-3) Neutrophils # (Auto) 5.7 x10^3/uL (1.8-7.7) Lymphocytes # (Auto) 0.8 x10^3/uL (1.0-4.8) Monocytes # (Auto) 0.9 x10^3/uL (0.0-1.1) Eosinophils # (Auto) 0.3 x10^3/uL (0.0-0.7) Basophils # (Auto) 0.1 x10^3/uL (0.0-0.2) Sodium Level 135 mmol/L (136-145) Potassium Level 4.4 mmol/L (3.5-5.1) Chloride Level 98 mmol/L (98-107) Carbon Dioxide Level 28 mmol/L (21-32) Anion Gap 9 (6-14) Blood Urea Nitrogen 106 mg/dL (8-26) Creatinine 2.3 mg/dL (0.7-1.3) Estimated GFR (Cockcroft-Gault) 27.6 Glucose Level 151 mg/dL (70-99) Calcium Level 8.7 mg/dL (8.5-10.1) Test 05/27/19 07:29 05/27/19 08:15 Glucose (Fingerstick) 170 mg/dL (70-99) Prothrombin Time 17.0 SEC (11.7-14.0) Prothromb Time International Ratio 1.4 (0.8-1.1) Assessment and Plan Assessmemt and Plan Problems Medical Problems: (1) Acute kidney injury superimposed on CKD Status: Acute (2) Acute on chronic combined systolic (congestive) and diastolic (congestive) heart failure Status: Acute (3) Acute respiratory failure Status: Acute (4) Acute respiratory failure with hypoxia Status: Acute (5) ABBY (acute kidney injury) Status: Acute (6) CAD (coronary artery disease) Status: Chronic (7) Chronic a-fib Status: Chronic (8) Chronic kidney disease, stage 4 (severe) Status: Acute (9) CKD (chronic kidney disease), stage III Status: Chronic (10) CVA (cerebral vascular accident) Status: Acute (11) DM2 (diabetes mellitus, type 2) Status: Chronic (12) Dyspnea Status: Acute (13) HCAP (healthcare-associated pneumonia) Status: Acute (14) Metabolic encephalopathy Status: Acute (15) Pleural effusion on left Status: Acute (16) Pleural effusion, left Status: Acute (17) Pulmonary edema Status: Acute (18) Sepsis Status: Acute (19) Severe sepsis Status: Acute Comment Review of Relevant I have reviewed the following items nestor (where applicable) has been applied. Labs Laboratory Tests Test 05/25/19 12:30 05/25/19 16:49 05/25/19 21:03 05/26/19 06:05 Glucose (Fingerstick) 130 mg/dL (70-99) 121 mg/dL (70-99) 151 mg/dL (70-99) Prothrombin Time 16.0 SEC (11.7-14.0) Prothromb Time International Ratio 1.3 (0.8-1.1) Sodium Level 134 mmol/L (136-145) Potassium Level 3.7 mmol/L (3.5-5.1) Chloride Level 96 mmol/L (98-107) Carbon Dioxide Level 29 mmol/L (21-32) Anion Gap 9 (6-14) Blood Urea Nitrogen 105 mg/dL (8-26) Creatinine 2.4 mg/dL (0.7-1.3) Estimated GFR (Cockcroft-Gault) 26.3 Glucose Level 184 mg/dL (70-99) Calcium Level 8.8 mg/dL (8.5-10.1) Phosphorus Level 3.3 mg/dL (2.6-4.7) Magnesium Level 2.2 mg/dL (1.8-2.4) Test 05/26/19 08:15 05/26/19 11:56 05/26/19 16:57 05/26/19 21:33 Glucose (Fingerstick) 161 mg/dL (70-99) 171 mg/dL (70-99) 104 mg/dL (70-99) 86 mg/dL (70-99) Test 05/27/19 05:47 05/27/19 07:29 05/27/19 08:15 White Blood Count 7.8 x10^3/uL (4.0-11.0) Red Blood Count 2.31 x10^6/uL (4.30-5.70) Hemoglobin 6.5 g/dL (13.0-17.5) Hematocrit 19.6 % (39.0-53.0) Mean Corpuscular Volume 85 fL (79-100) Mean Corpuscular Hemoglobin 28 pg (25-35) Mean Corpuscular Hemoglobin Concent 33 g/dL (31-37) Red Cell Distribution Width 21.1 % (11.5-14.5) Platelet Count 146 x10^3/uL (140-400) Neutrophils (%) (Auto) 73 % (31-73) Lymphocytes (%) (Auto) 10 % (24-48) Monocytes (%) (Auto) 11 % (0-9) Eosinophils (%) (Auto) 4 % (0-3) Basophils (%) (Auto) 1 % (0-3) Neutrophils # (Auto) 5.7 x10^3/uL (1.8-7.7) Lymphocytes # (Auto) 0.8 x10^3/uL (1.0-4.8) Monocytes # (Auto) 0.9 x10^3/uL (0.0-1.1) Eosinophils # (Auto) 0.3 x10^3/uL (0.0-0.7) Basophils # (Auto) 0.1 x10^3/uL (0.0-0.2) Sodium Level 135 mmol/L (136-145) Potassium Level 4.4 mmol/L (3.5-5.1) Chloride Level 98 mmol/L (98-107) Carbon Dioxide Level 28 mmol/L (21-32) Anion Gap 9 (6-14) Blood Urea Nitrogen 106 mg/dL (8-26) Creatinine 2.3 mg/dL (0.7-1.3) Estimated GFR (Cockcroft-Gault) 27.6 Glucose Level 151 mg/dL (70-99) Calcium Level 8.7 mg/dL (8.5-10.1) Glucose (Fingerstick) 170 mg/dL (70-99) Prothrombin Time 17.0 SEC (11.7-14.0) Prothromb Time International Ratio 1.4 (0.8-1.1) Laboratory Tests Test 05/26/19 11:56 05/26/19 16:57 05/26/19 21:33 05/27/19 05:47 Glucose (Fingerstick) 171 mg/dL (70-99) 104 mg/dL (70-99) 86 mg/dL (70-99) White Blood Count 7.8 x10^3/uL (4.0-11.0) Red Blood Count 2.31 x10^6/uL (4.30-5.70) Hemoglobin 6.5 g/dL (13.0-17.5) Hematocrit 19.6 % (39.0-53.0) Mean Corpuscular Volume 85 fL (79-100) Mean Corpuscular Hemoglobin 28 pg (25-35) Mean Corpuscular Hemoglobin Concent 33 g/dL (31-37) Red Cell Distribution Width 21.1 % (11.5-14.5) Platelet Count 146 x10^3/uL (140-400) Neutrophils (%) (Auto) 73 % (31-73) Lymphocytes (%) (Auto) 10 % (24-48) Monocytes (%) (Auto) 11 % (0-9) Eosinophils (%) (Auto) 4 % (0-3) Basophils (%) (Auto) 1 % (0-3) Neutrophils # (Auto) 5.7 x10^3/uL (1.8-7.7) Lymphocytes # (Auto) 0.8 x10^3/uL (1.0-4.8) Monocytes # (Auto) 0.9 x10^3/uL (0.0-1.1) Eosinophils # (Auto) 0.3 x10^3/uL (0.0-0.7) Basophils # (Auto) 0.1 x10^3/uL (0.0-0.2) Sodium Level 135 mmol/L (136-145) Potassium Level 4.4 mmol/L (3.5-5.1) Chloride Level 98 mmol/L (98-107) Carbon Dioxide Level 28 mmol/L (21-32) Anion Gap 9 (6-14) Blood Urea Nitrogen 106 mg/dL (8-26) Creatinine 2.3 mg/dL (0.7-1.3) Estimated GFR (Cockcroft-Gault) 27.6 Glucose Level 151 mg/dL (70-99) Calcium Level 8.7 mg/dL (8.5-10.1) Test 05/27/19 07:29 05/27/19 08:15 Glucose (Fingerstick) 170 mg/dL (70-99) Prothrombin Time 17.0 SEC (11.7-14.0) Prothromb Time International Ratio 1.4 (0.8-1.1) Microbiology 05/16/19 Blood Culture - Final, Complete NO GROWTH AFTER 5 DAYS Medications Current Medications Vancomycin HCl (Vanco Per Pharmacy) 1 each PRN DAILY PRN MC SEE COMMENTS Last administered on 05/16/19at 02:12; Start 05/15/19 at 23:00; Stop 05/17/19 at 06:52; Status DC Levofloxacin/ Dextrose 150 ml @ 100 mls/hr 1X ONCE IV Last administered on 05/16/19at 00:17; Start 05/15/19 at 23:30; Stop 05/16/19 at 00:59; Status DC Sodium Chloride 1,000 ml @ 1,000 mls/hr 1X ONCE IV ; Start 05/15/19 at 23:30; Stop 05/16/19 at 00:29; Status DC Sodium Chloride 1,000 ml @ 1,000 mls/hr 1X ONCE IV Last administered on 05/16/19at 00:17; Start 05/15/19 at 23:30; Stop 05/16/19 at 00:29; Status DC Sodium Chloride 1,000 ml @ 1,000 mls/hr 1X ONCE IV Last administered on 05/16/19at 00:17; Start 05/15/19 at 23:30; Stop 05/16/19 at 00:29; Status DC Vancomycin HCl 2 gm/Sodium Chloride 500 ml @ 250 mls/hr 1X ONCE IV Last administered on 05/16/19at 00:15; Start 05/16/19 at 00:00; Stop 05/16/19 at 01:59; Status DC Ondansetron HCl (Zofran) 4 mg PRN Q8HRS PRN IV NAUSEA/VOMITING 1ST CHOICE; Start 05/16/19 at 01:45; Stop 05/17/19 at 01:44; Status DC Vancomycin HCl 1.25 gm/Sodium Chloride 250 ml @ 167 mls/hr Q48H IV ; Start 05/18/19 at 00:00; Stop 05/17/19 at 06:52; Status DC Vancomycin HCl (Vancomycin Trough Level) 1 each 1X ONCE MC ; Start 05/19/19 at 23:30; Stop 05/17/19 at 07:19; Status DC Albumin Human 100 ml @ 100 mls/hr 1X ONCE IV Last administered on 05/16/19at 04:14; Start 05/16/19 at 04:30; Stop 05/16/19 at 05:29; Status DC Norepinephrine Bitartrate 250 ml @ 17.031 mls/ hr CONT PRN IV SEE I/O RECORD Last administered on 05/16/19at 04:21; Start 05/16/19 at 04:00; Stop 05/19/19 at 08:36; Status DC Info (FLU VACCINE SCREEN per RX) 1 each 1X ONCE MC ; Start 05/16/19 at 05:00; Stop 05/16/19 at 05:01; Status UNV Albumin Human 250 ml @ 125 mls/hr 1X ONCE IV Last administered on 05/16/19at 05:11; Start 05/16/19 at 05:30; Stop 05/16/19 at 07:29; Status DC Piperacillin Sod/ Tazobactam Sod 2.25 gm/Sodium Chloride 50 ml @ 100 mls/hr Q6HRS IV Last administered on 05/22/19 06:02; Start 05/16/19 at 13:00; Stop 05/22/19 at 11:04; Status DC Linezolid/Dextrose 300 ml @ 300 mls/hr Q12HR IV Last administered on 05/22/19at 09:01; Start 05/17/19 at 09:00; Stop 05/22/19 at 11:04; Status DC Furosemide (Lasix) 40 mg 1X ONCE IVP Last administered on 05/17/19at 15:47; Start 05/17/19 at 15:45; Stop 05/17/19 at 15:46; Status DC Amino Acids/ Glycerin/ Electrolytes 1,000 ml @ 80 mls/hr [id number] IV Last administered on 05/27/19at 05:45; Start 05/18/19 at 10:00 Aspirin (Ecotrin) 81 mg DAILYWBKFT PO Last administered on 05/26/19at 10:22; Start 05/18/19 at 12:45 Furosemide (Lasix) 40 mg 1X ONCE IVP Last administered on 05/18/19at 15:39; Start 05/18/19 at 15:00; Stop 05/18/19 at 15:01; Status DC Metoprolol Succinate (Toprol Xl) 25 mg DAILY PO Last administered on 05/25/19at 09:08; Start 05/18/19 at 15:00 Insulin Glargine (Lantus Syringe) 12 unit QHS SQ Last administered on 05/20/19at 23:37; Start 05/18/19 at 21:00; Stop 05/21/19 at 09:11; Status DC Insulin Human Lispro (HumaLOG) 0-5 UNITS TIDWMEALS SQ Last administered on 05/20/19at 17:22; Start 05/18/19 at 17:00; Stop 05/21/19 at 09:11; Status DC Dextrose (Dextrose 50%-Water Syringe) 12.5 gm PRN Q15MIN PRN IV SEE COMMENTS; Start 05/18/19 at 17:00; Stop 05/21/19 at 09:12; Status DC Dextrose 250 ml PRN Q15MIN PRN IV SEE COMMENTS; Start 05/18/19 at 17:00; Stop 05/21/19 at 09:12; Status DC Insulin Human Lispro (HumaLOG) 6 units TIDWMEALS SQ Last administered on 05/27/19at 10:09; Start 05/18/19 at 17:00 Buspirone HCl (Buspar) 5 mg BID PO Last administered on 05/27/19at 09:53; Start 05/19/19 at 10:00 Carbidopa/Levodopa (Sinemet Cr) 1 tab.sa TID PO Last administered on 05/27/19 09:56; Start 05/19/19 at 09:00 Levothyroxine Sodium (Synthroid) 125 mcg DAILY06 PO Last administered on 05/27/19 05:44; Start 05/19/19 at 10:30 Polyethylene Glycol (miraLAX PACKET) 17 gm BID PO Last administered on 05/27/19 09:58; Start 05/19/19 at 09:00 Sevelamer Carbonate (Renvela) 2,400 mg TIDAC PO Last administered on 05/20/19 09:37; Start 05/19/19 at 11:30; Stop 05/20/19 at 14:10; Status DC Lactobacillus Rhamnosus (Culturelle) 1 cap BID PO Last administered on 05/27/19 09:57; Start 05/20/19 at 21:00 Insulin Glargine (Lantus Syringe) 15 unit QHS SQ Last administered on 05/25/19at 22:06; Start 05/21/19 at 21:00 Insulin Human Lispro (HumaLOG) 0-9 UNITS TIDWMEALS SQ Last administered on 05/27/19at 10:20; Start 05/21/19 at 09:30 Dextrose (Dextrose 50%-Water Syringe) 12.5 gm PRN Q15MIN PRN IV SEE COMMENTS; Start 05/21/19 at 09:15 Dextrose 250 ml PRN Q15MIN PRN IV SEE COMMENTS; Start 05/21/19 at 09:15 Acetaminophen (Tylenol) 650 mg PRN Q6HRS PRN PO MILD PAIN 1-3; Start 05/21/19 at 09:15 Aspirin (Ecotrin) 81 mg DAILY PO ; Start 05/22/19 at 09:00; Status UNV Bisacodyl (Dulcolax Supp) 10 mg PRN DAILY PRN RC CONSTIPATION; Start 05/21/19 at 09:15 Cyanocobalamin (Vitamin B-12) 1,000 mcg DAILY PO Last administered on 05/27/19at 09:53; Start 05/21/19 at 10:00 Glucose (Insta-Glucose) 15 gm PRN DAILY PRN PO Hypoglycemia; Start 05/21/19 at 09:15 Metolazone (Zaroxolyn) 2.5 mg PRN DAILY PRN PO Weight gain/Fluid gain; Start 05/21/19 at 09:15 Metoprolol Succinate (Toprol Xl) 25 mg DAILY PO ; Start 05/22/19 at 09:00; Status UNV Sodium Monofluorophosphate (Fleet Adult) 133 ml PRN DAILY PRN RC CONSTIPATION; Start 05/21/19 at 09:15 Pantoprazole Sodium (Protonix) 40 mg DAILYAC PO Last administered on 05/27/19at 09:56; Start 05/21/19 at 10:00 Potassium Chloride (Klor-Con) 20 meq PRN DAILY PRN PO IF PRN METOLAZONE GIVEN; Start 05/21/19 at 09:15 Senna/Docusate Sodium (Senna Plus) 1 tab BID PO Last administered on 05/27/19at 09:56; Start 05/21/19 at 10:00 Simethicone (Gas-X) 80 mg PRN Q6HRS PRN PO HEARTBURN / GAS; Start 05/21/19 at 09:15 Torsemide (Demadex) 100 mg BID92 PO Last administered on 05/25/19at 09:08; Start 05/21/19 at 10:00; Stop 05/25/19 at 11:47; Status DC Trazodone HCl (Desyrel) 100 mg QHS PO Last administered on 05/26/19at 21:57; Start 05/21/19 at 21:00 Warfarin Sodium (Coumadin) 2 mg DAILY16 PO ; Start 05/21/19 at 16:00; Stop 05/22/19 at 15:45; Status DC Febuxostat (Uloric) 80 mg DAILY PO Last administered on 05/27/19 09:57; Start 05/21/19 at 10:00 Ferrous Sulfate (Feosol) 325 mg DAILYWBKFT PO Last administered on 05/27/19 09:54; Start 05/21/19 at 10:00 Fluticasone Propionate (Flonase) 2 spray DAILY NS Last administered on 05/27/19 09:57; Start 05/21/19 at 10:00 Lactobacillus Rhamnosus (Culturelle) 1 cap DAILY PO ; Start 05/22/19 at 09:00; Status UNV Non-Formulary Medication (Melatonin ) 2 tab QHS PO ; Start 05/21/19 at 21:00; Status UNV Metolazone (Zaroxolyn) 7.5 mg DAILY PO Last administered on 05/23/19 08:57; Start 05/21/19 at 10:00; Stop 05/23/19 at 11:13; Status DC Potassium Chloride (Klor-Con) 40 meq DAILYWBKFT PO Last administered on 09:55; Start 05/21/19 at 10:00 Atorvastatin Calcium (Lipitor) 5 mg QHS PO Last administered on 05/26/19 21:58; Start 05/21/19 at 21:00 Vitamin D (Vitamin D3) 5,000 unit DAILY PO Last administered on 05/27/19 09:55; Start 05/21/19 at 10:00 Warfarin Sodium (Coumadin Per Pharmacy) 1 each PRN DAILY PRN MC SEE COMMENTS Last administered on 05/26/19at 14:31; Start 05/21/19 at 09:15 Ondansetron HCl (Zofran) 4 mg PRN Q6HRS PRN IV NAUSEA/VOMITING Last administered on 05/22/19 23:05; Start 05/21/19 at 11:00 Amoxicillin/ Clavulanate Potassium (Augmentin 875/ 125mg) 1 tab DAILY PO Last administered on 05/27/19 09:56; Start 05/23/19 at 09:00 Warfarin Sodium (Coumadin) 5 mg 1X WARF ONCE PO ; Start 05/22/19 at 16:00; Stop 05/22/19 at 16:01; Status DC Warfarin Sodium (Coumadin) 5 mg 1X WARF ONCE PO Last administered on 05/23/19at 17:59; Start 05/23/19 at 17:00; Stop 05/23/19 at 17:01; Status DC Warfarin Sodium (Coumadin) 6 mg 1X WARF ONCE PO Last administered on 05/24/19at 21:16; Start 05/24/19 at 16:00; Stop 05/24/19 at 16:01; Status DC Sodium Chloride 1,000 ml @ 75 mls/hr 1X ONCE IV Last administered on 05/24/19at 14:48; Start 05/24/19 at 13:00; Stop 05/25/19 at 02:19; Status DC Hydralazine HCl (Apresoline Inj) 10 mg PRN Q4HRS PRN IVP ELEVATED BP, SEE COMMENTS; Start 05/24/19 at 14:15 Warfarin Sodium (Coumadin) 7.5 mg 1X WARF ONCE PO Last administered on 05/25/19at 15:27; Start 05/25/19 at 16:00; Stop 05/25/19 at 16:01; Status DC Torsemide (Demadex) 40 mg DAILY PO Last administered on 05/27/19at 10:03; Start 05/26/19 at 09:00 Warfarin Sodium (Coumadin) 7.5 mg 1X WARF ONCE PO Last administered on 05/26/19at 15:30; Start 05/26/19 at 16:00; Stop 05/26/19 at 16:01; Status DC Active Scripts Active Novolog Flexpen (Insulin Aspart) 300 Units/3 Ml Insuln.pen 8 Units SQ TIDWMEALS Reported Trazodone Hcl 100 Mg Tablet 1 Tab PO QHS Tramadol Hcl 50 Mg Tablet 50 Mg PO Q8HRS Torsemide 20 Mg Tablet 100 Mg PO BID Temazepam 15 Mg Capsule 1 Cap PO QHS Sinemet Cr 25-100 Tablet (Carbidopa/Levodopa) 1 Each Tablet.er 1 Tab PO TID Simethicone 80 Mg Tab.chew 80 Mg PO PRN Q6HRS PRN Senna Plus 8.6-50 mg Tablet (Sennosides/Docusate Sodium) 1 Each Tablet 1 Each PO BID Renvela (Sevelamer Carbonate) 800 Mg Tablet 3 Tab PO TIDAC Protonix (Pantoprazole Sodium) 40 Mg Tablet.dr 40 Mg PO DAILYAC Pravastatin Sodium 20 Mg Tablet 1 Tab PO HS Potassium Chloride 20 Meq Tablet.er 2 Tab PO DAILY Klor-Con M20 (Potassium Chloride) 20 Meq Tab.er.prt 1 Tab PO PRN DAILY PRN Novolog (Insulin Aspart) 100 Unit/1 Ml Cartridge 8 Unit SQ TIDBFRMEAL NITROGLYCERIN SubLingual (Nitroglycerin) 0.4 Mg Tab.subl 1 Tab SL UD PRN Miralax (Polyethylene Glycol 3350) 17 Gm Powd.pack 1 Packet PO BID Metoprolol Succinate ( Xl ) (Metoprolol Succinate) 25 Mg Tab.er.24h 1 Tab PO DAILY Metolazone 5 Mg Tablet 1.5 Tab PO DAILY Metolazone 2.5 Mg Tablet 2.5 Mg PO PRN DAILY PRN Melatonin 3 Mg Tablet 2 Tab PO QHS Levothyroxine Sodium 125 Mcg Tablet 1 Tab PO DAILY Lantus Solostar (Insulin Glargine,Hum.rec.anlog) 100 Unit/1 Ml Insuln.pen 12 Unit SQ QHS Acidophilus (Lactobacillus Acidophilus) 1 Each Capsule 1 Each PO DAILY Glucose Gel (Dextrose) 38 Gm Gel..gram. 38 Gm PO PRN PRN Gabapentin (Gabapentin) 100 Mg Capsule 100 Mg PO TID Flonase Allergy Relief (Fluticasone Propionate) 9.9 Ml [place].susp 2 Sprays NS DAILY Fleet Enema (Na Phos,M-B/Na Phos,Di-Ba) 133 Ml Enema 133 Ml RC PRN PRN Ferrous Gluconate 240 Mg Tablet 240 Mg PO DAILY Uloric (Febuxostat) 80 Mg Tablet 1 Tab PO DAILY Cymbalta (Duloxetine Hcl) 60 Mg Capsule.dr 1 Cap PO HS Cymbalta (Duloxetine Hcl) 30 Mg Capsule.dr 1 Cap PO DAILY Vitamin B-12 (Cyanocobalamin (Vitamin B-12)) 1,000 Mcg Tablet 1 Tab PO DAILY Coumadin (Warfarin Sodium) 2 Mg Tablet 1 Tab PO DAILY Vitamin D3 (Cholecalciferol (Vitamin D3)) 5,000 Unit Tablet 1 Tab PO DAILY Buspirone Hcl 5 Mg Tablet 1 Tab PO BID Bisacodyl 10 Mg Supp.rect 10 Mg RC PRN DAILY PRN Tylenol (Acetaminophen) 325 Mg Tablet 2 Tab PO PRN Q6HRS PRN Sertraline Hcl 100 Mg Tablet 100 Mg PO DAILY Aspir 81 (Aspirin) 81 Mg Tablet. 1 Tab PO DAILY Vitals/I & O Vital Sign - Last 24 Hours 05/26/19 05/26/19 05/26/19 05/26/19 10:43 15:00 19:20 20:00 Temp 98.2 98.8 98.3 98.2 98.8 98.3 Pulse 69 72 69 Resp 17 18 19 B/P (MAP) 137/57 (83) 136/56 (82) 122/37 (65) Pulse Ox 97 96 98 O2 Delivery Room Air Room Air Room Air Room Air O2 Flow Rate 3.0 05/26/19 05/27/19 05/27/19 05/27/19 23:20 03:20 07:00 09:00 Temp 98.3 97.9 97.9 98.3 97.9 97.9 Pulse 71 69 70 70 Resp 18 18 B/P (MAP) 119/56 (77) 108/36 (60) 124/55 (78) 124/55 Pulse Ox 94 92 94 O2 Delivery Room Air Room Air Room Air O2 Flow Rate 3.0 Intake and Output 05/26/19 05/26/19 05/27/19 15:00 23:00 07:00 Intake Total 0 ml Output Total 750 ml 701 ml Balance -750 ml -701 ml SCOTT VASQUEZ MD May 27, 2019 10:30
--- NOTE | 2019-05-27 14:12 | RAD ---
EXAM: Carotid Doppler sonogram. HISTORY: Cerebral infarction. TECHNIQUE: Angel scale and color Doppler sonographic evaluation of the neck with spectral waveform analysis was performed and static images are submitted for review. FINDINGS: The right neck arteries could not be assessed due to a catheter and associated bandage material. There is mild atherosclerotic plaque within the left carotid bifurcation. The peak systolic velocity within the left common carotid artery is 95 cm/sec. The peak systolic velocity within the left internal carotid artery is 153 cm/sec and the end diastolic velocity within the left internal carotid artery is 11 cm/sec. The left ICA/CCA ratio is 1.75. There is normal antegrade flow within the left vertebral artery. IMPRESSION: 1. Nonassessment of the right carotid or vertebral arteries due to an indwelling catheter and surrounding bandage material. 2. Mild atherosclerotic plaque within the left carotid bifurcation. There is a mildly elevated peak systolic velocity within the left internal carotid artery, suggesting 50-69 percent stenosis. PQRS Compliance Statement - Stenosis calculations for CT, MR and conventional angiography are based upon measurement of the distal ICA diameter in accordance with the NASCET methodology. Stenosis calculations for carotid ultrasound studies are derived from validated velocity criteria which are known to correlate with the NASCET methodology. Electronically signed by: Nalini Abdalla MD (05/27/2019 2:09 PM) [facility]
--- NOTE | 2019-05-27 14:13 | NUR ---
Pharmacy Warfarin Dosing Note S:Pharmacy consulted to assist with anticoagulation therapy started with target INR: 2 -3 O:CORAZON BLANCAS is a 78 year old M with Atrial Fibrillation LABS: Last INR: 1.4 Last HGB: 6.5 RECEIVING PRBC TODAY Last HCT: 19.6 Last PLT: 146 Last dose of 7.5 mg given on 05/26/19 at 2116 Previous Regimen: 2 mg/day Vitamin K given: N Drug Interaction Changes: New Interacting Drug Ongoing Drug Interactions: ASA, Zosyn A:INR of 1.4 is below desired range. Target range for this patient is: 2 -3 P: Warfarin dose: 7.5 mg Today at 1600 Bridge Therapy: None Next INR due TOMORROW. Pharmacy anticoagulation service will continue to follow. BRUNA LOPEZ FORMERLY [facility] [place], 05/27/19 [id number]
--- NOTE | 2019-05-27 15:07 | PDOC ---
PROGRESS NOTES Assessment Assessment Metabolic encephalopathy. Recent 2 cm right cerebellar infarct. Sepsis. Hypotension. CAD. CHF. HTN. HLD. CKD. Bilateral BKA. Obesity. Cognitive impairment. RECOMMENDATIONS/PLAN: He has been treated with Coumadin. ASA 81 mg daily. Lipitor HS. Treat medical diseases. Repeat HCT if condition worse. OT/PT. Past Medical History Cardiovascular: AFIB (/flutter), CAD, CHF, HTN, Hyperlipidemia GI: Constipation Rheumatologic: Gout Renal/: Chronic renal failure (IV), Benign prostatic enlarg. Endocrine: Diabetes Dermatology: Basal cell Past Surgical History Pacemaker (/defibrillator), CABG, Cataract Removal, Hernia Repair (ventral), Tonsillectomy, Other (cardiac cath, bilateral BKA, right foot hammertoe) Family History No pertinent hx Social History Single, care home resident, does not use alcohol or tobacco Allergies Coded Allergies: bumetanide (Verified Allergy, Intermediate, 05/31/18) cephalexin (Verified Allergy, Intermediate, 05/16/19) HAS TOLERATED MERREM AND ZOSYN metformin (Verified Allergy, Intermediate, 05/31/18) ROS Negative for fever, chills, weight loss, shortness of breath, chest pain, indigestion, hematochezia, melena, and dysuria. Full 14-point review of systems is negative. MEDICATIONS: Refer to MAR PHYSICAL EXAMINATION: General appearance in subacute distress. HEENT: Normocephalic and nontraumatic. Eyes, nose, ears, and throat are unremarkable. Hearing decrease. Neck is supple. No lymphadenopathy. No Crepitus. Cardiovascular: S1, S2, seemed regular rate and rhythm. Pulmonary: Clear to auscultation bilaterally. Abdomen: Bowel sounds are positive. Abdomen is soft, nontender, and nondistended. Extremities: No rash, lesions, or edema. No restriction of range of motion NEUROLOGICAL EXAMINATION: Drowsiness. Not oriented to time, place and person. PERRL. EOMI. CN: no focal findings. Muscle tone: within normal. Muscle strength: 4 DTR: 1 Plantar reflex: Neutral response bilaterally Gait: not able to walk. BKA. Sensory exam: no abnormal findings. No cerebellar signs elicited. F-T-N test fine. Objective Objective Vital Signs Date Time Temp Pulse Resp B/P (MAP) Pulse Ox O2 Delivery O2 Flow Rate FiO2 05/27/19 11:00 97.8 67 18 110/43 (65) 93 Room Air 97.8 05/27/19 07:00 3.0 Intake and Output0 05/27/19 07:00 Intake Total 0 ml Output Total 1451 ml Balance -1451 ml Intake Oral 0 ml Output Urine Total 1450 ml Stool Total 1 ml # Bowel Movements 2 Vitals Signs Vitals VS - Last 72 Hours, by Label Date Time Temp Pulse Resp B/P (MAP) Pulse Ox O2 Delivery O2 Flow Rate FiO2 05/27/19 11:00 97.8 67 18 110/43 (65) 93 Room Air 97.8 05/27/19 09:00 70 124/55 05/27/19 08:00 Room Air 05/27/19 07:00 97.9 70 18 124/55 (78) 94 Room Air 3.0 97.9 05/27/19 03:20 97.9 69 18 108/36 (60) 92 Room Air 97.9 05/26/19 23:20 98.3 71 19 119/56 (77) 94 Room Air 98.3 05/26/19 20:00 Room Air 05/26/19 19:20 98.3 69 19 122/37 (65) 98 Room Air 98.3 05/26/19 15:00 98.8 72 18 136/56 (82) 96 Room Air 98.8 05/26/19 10:43 98.2 69 17 137/57 (83) 97 Room Air 3.0 98.2 05/26/19 09:00 70 107/27 05/26/19 08:00 Room Air 3.0 05/26/19 07:45 98.2 70 20 107/27 (53) 97 Room Air 98.2 Laboratory Laboratory Laboratory Tests Test 05/26/19 16:57 05/26/19 21:33 05/27/19 05:47 05/27/19 07:29 Glucose (Fingerstick) 104 mg/dL (70-99) 86 mg/dL (70-99) 170 mg/dL (70-99) White Blood Count 7.8 x10^3/uL (4.0-11.0) Red Blood Count 2.31 x10^6/uL (4.30-5.70) Hemoglobin 6.5 g/dL (13.0-17.5) Hematocrit 19.6 % (39.0-53.0) Mean Corpuscular Volume 85 fL (79-100) Mean Corpuscular Hemoglobin 28 pg (25-35) Mean Corpuscular Hemoglobin Concent 33 g/dL (31-37) Red Cell Distribution Width 21.1 % (11.5-14.5) Platelet Count 146 x10^3/uL (140-400) Neutrophils (%) (Auto) 73 % (31-73) Lymphocytes (%) (Auto) 10 % (24-48) Monocytes (%) (Auto) 11 % (0-9) Eosinophils (%) (Auto) 4 % (0-3) Basophils (%) (Auto) 1 % (0-3) Neutrophils # (Auto) 5.7 x10^3/uL (1.8-7.7) Lymphocytes # (Auto) 0.8 x10^3/uL (1.0-4.8) Monocytes # (Auto) 0.9 x10^3/uL (0.0-1.1) Eosinophils # (Auto) 0.3 x10^3/uL (0.0-0.7) Basophils # (Auto) 0.1 x10^3/uL (0.0-0.2) Sodium Level 135 mmol/L (136-145) Potassium Level 4.4 mmol/L (3.5-5.1) Chloride Level 98 mmol/L (98-107) Carbon Dioxide Level 28 mmol/L (21-32) Anion Gap 9 (6-14) Blood Urea Nitrogen 106 mg/dL (8-26) Creatinine 2.3 mg/dL (0.7-1.3) Estimated GFR (Cockcroft-Gault) 27.6 Glucose Level 151 mg/dL (70-99) Calcium Level 8.7 mg/dL (8.5-10.1) Test 05/27/19 08:15 05/27/19 12:20 Prothrombin Time 17.0 SEC (11.7-14.0) Prothromb Time International Ratio 1.4 (0.8-1.1) Glucose (Fingerstick) 149 mg/dL (70-99) Microbiology 05/16/19 Blood Culture - Final, Complete NO GROWTH AFTER 5 DAYS Medication Medications Current Medications Warfarin Sodium (Coumadin) 7.5 mg 1X WARF ONCE PO Last administered on 05/26/19at 15:30; Start 05/26/19 at 16:00; Stop 05/26/19 at 16:01; Status DC Warfarin Sodium (Coumadin) 7.5 mg 1X WARF ONCE PO ; Start 05/27/19 at 16:00; Stop 05/27/19 at 16:01 Comment Review of Relevant I have reviewed the following items nestor (where applicable) has been applied. LUCA MCKEON MD May 27, 2019 15:07
[2019-05-27] MEDS ORDERED: WARFARIN 7.5 MG TABLET. PO ONE (16:00)
[2019-05-27] MEDS: INSULIN GLARGINE SYRINGE. SQ SCH (21:00)
[2019-05-27] MEDS: ATORVASTATIN CALCIUM 10 MG TABLET. PO SCH (22:02)
[2019-05-27] MEDS: traZODone 100 MG TABLET. PO SCH (22:02)
--- NOTE | 2019-05-28 00:30 | NUR ---
Patient's blood sugar 60 at 2051. Given 25ml of dextrose per protocol. 5 mins later rechecked and 118. 15 units of Lantus held at that moment. Blood sugar rechecked at 2345, 131. Dr. Castrejon paged at [phone], to receive orders as to whether or not to administer dose of Lantus for the night. Dr. Castrejon ordered for Lantus to be held tonight. Will continue to monitor patient.
[2019-05-28 00:42] LABS: HEMOGLOBIN 7.2 g/dL (13.0-17.5); RED BLOOD COUNT 2.58 x10^6/uL (4.30-5.70); RED CELL DISTRIBUTION WIDTH 20.2 % (11.5-14.5); WHITE BLOOD COUNT 11.7 x10^3/uL (4.0-11.0)
[2019-05-28 03:20] VITALS: BP 124/54
[2019-05-28 04:18] LABS: BASO # 0.1 x10^3/uL (0.0-0.2); BASO % 1 % (0-3); EOS # 0.2 x10^3/uL (0.0-0.7); EOS % 2 % (0-3); HEMATOCRIT 22.7 % (39.0-53.0); HEMOGLOBIN 7.6 g/dL (13.0-17.5); LYMPH # 0.9 x10^3/uL (1.0-4.8); LYMPH % 8 % (24-48); MEAN CORPUSCULAR HEMOGLOBIN 29 pg (25-35); MEAN CORPUSCULAR HGB CONC 33 g/dL (31-37); MEAN CORPUSCULAR VOLUME 86 fL (79-100); MONO # 1.1 x10^3/uL (0.0-1.1); MONO % 10 % (0-9); NEUT # 8.6 x10^3/uL (1.8-7.7); NEUT % 79 % (31-73); PLATELET COUNT 156 x10^3/uL (140-400); RED BLOOD COUNT 2.64 x10^6/uL (4.30-5.70); RED CELL DISTRIBUTION WIDTH 19.7 % (11.5-14.5); WHITE BLOOD COUNT 10.9 x10^3/uL (4.0-11.0)
[2019-05-28 04:25] LABS: CREATININE 2.2 mg/dL (0.7-1.3); GFR 29.1; POTASSIUM 4.6 mmol/L (3.5-5.1)
[2019-05-28 04:27] LABS: PROTHROMBIN TIME PATIENT 18.5 SEC (11.7-14.0)
[2019-05-28] MEDS: LEVOTHYROXINE 125 MCG TABLET PO SCH (06:26)
[2019-05-28] MEDS ORDERED: ALTEPLASE 2MG VIAL 10 MG in IV NORMAL SALINE 50ML 50 ML IV ONE (06:45)
[2019-05-28] MEDS ORDERED: ALTEPLASE 1MG SYRINGE. INT CAT ONE (07:00)
[2019-05-28 07:57] VITALS: BP 120/48
--- NOTE | 2019-05-28 08:25 | PDOC ---
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 cellulitis ABBY on CKD - likely this is vasomotor nephropathy due to poor PO intake Afib Cerebellar infarct - on CT scan, ? age Cardiomyopathy with pacemaker Severe protein calorie malnutrition\ ON PPN dysphagia -on dysphagia 1 diet uncontrolled hypertension 05/24 POOR DENTITION 05/24 marked nausea did not shannan luncH, wretching d/w RN, WILL ORDER KUB R/O ILEUS 05/25 REFUSING TO EAT WILL CONSULT PALLIATIVE CARE 05/26 if eats 50% of lunch and breakfast, will consider d/c later today 05/28 NO INTAKE POOR APPETITE, PAT SAW TODAY po augmentin x 4 days MAY BE CAUSE OF NAUSEA CONSIDER PALLIATIVE CARE cbc in am 05/27 hgb 6.5 transfuse 1 unit PRBC'S 29 min pt exam, chart review, > 50% of time spent with exam, chart review, pt care coordination History of Present Illness History of Present Illness emesis still SNU resident needs t be fed in SNU HE is bilateral BKA - so wheelchair bound HE is DNR< active med treatment' he is on warf for maybe bed bound issues, bilateral BKA PLAN: adjust insulin today SSI high dose SHIFT pls IV zyvox, zosyn per ID--switched to augmentin per ID DNR WArf per pharmacy goal 2-3 held off sedating meds for now like gabapentin, trazadone, cymbalta etc COnt dysphagia 1 diet dc back to SNF soon Vitals Vitals Vital Signs Date Time Temp Pulse Resp B/P (MAP) Pulse Ox O2 Delivery O2 Flow Rate FiO2 05/28/19 07:57 97.4 70 20 120/48 (72) 92 Room Air 97.4 05/27/19 07:00 3.0 Physical Exam Physical Exam GENERAL: awake CANNOT TELL ME CORRECT YEAR HEENT: OC/OP- clean NECK: Supple. HEART: S1, S2 with a 2/6 murmur. Pacemaker ABDOMEN: Soft, nontender. No guarding. GENITOURINARY: Garcia in place. EXTREMITIES: Bilateral lower extremity BKAs Mild RUE erythema and dryness SKIN: warm to touch NEUROLOGIC: Nonverbal RIJ clean General: Alert, Cooperative, No acute distress, Other (LETHARGIC) Heart: Regular rate, Normal S1, Normal S2, No murmurs, Gallops Lungs: Clear, Other (decrease left base) Abdomen: Normal bowel sounds, Soft, No tenderness, No hepatosplenomegaly, No masses Extremities: No clubbing, No cyanosis, No edema, Normal pulses, No tenderness/swelling Skin: No rashes Labs LABS Laboratory Tests Test 05/27/19 12:20 05/27/19 17:03 05/27/19 20:52 05/27/19 21:24 Glucose (Fingerstick) 149 mg/dL (70-99) 120 mg/dL (70-99) 60 mg/dL (70-99) 118 mg/dL (70-99) Test 05/27/19 23:41 05/28/19 00:30 05/28/19 03:50 05/28/19 06:30 Glucose (Fingerstick) 131 mg/dL (70-99) 216 mg/dL (70-99) White Blood Count 11.7 x10^3/uL (4.0-11.0) 10.9 x10^3/uL (4.0-11.0) Red Blood Count 2.58 x10^6/uL (4.30-5.70) 2.64 x10^6/uL (4.30-5.70) Hemoglobin 7.2 g/dL (13.0-17.5) 7.6 g/dL (13.0-17.5) Hematocrit 22.0 % (39.0-53.0) 22.7 % (39.0-53.0) Mean Corpuscular Volume 85 fL (79-100) 86 fL (79-100) Mean Corpuscular Hemoglobin 28 pg (25-35) 29 pg (25-35) Mean Corpuscular Hemoglobin Concent 33 g/dL (31-37) 33 g/dL (31-37) Red Cell Distribution Width 20.2 % (11.5-14.5) 19.7 % (11.5-14.5) Platelet Count 159 x10^3/uL (140-400) 156 x10^3/uL (140-400) Neutrophils (%) (Auto) 79 % (31-73) Lymphocytes (%) (Auto) 8 % (24-48) Monocytes (%) (Auto) 10 % (0-9) Eosinophils (%) (Auto) 2 % (0-3) Basophils (%) (Auto) 1 % (0-3) Neutrophils # (Auto) 8.6 x10^3/uL (1.8-7.7) Lymphocytes # (Auto) 0.9 x10^3/uL (1.0-4.8) Monocytes # (Auto) 1.1 x10^3/uL (0.0-1.1) Eosinophils # (Auto) 0.2 x10^3/uL (0.0-0.7) Basophils # (Auto) 0.1 x10^3/uL (0.0-0.2) Prothrombin Time 18.5 SEC (11.7-14.0) Prothromb Time International Ratio 1.6 (0.8-1.1) Sodium Level 132 mmol/L (136-145) Potassium Level 4.6 mmol/L (3.5-5.1) Chloride Level 96 mmol/L (98-107) Carbon Dioxide Level 27 mmol/L (21-32) Anion Gap 9 (6-14) Blood Urea Nitrogen 108 mg/dL (8-26) Creatinine 2.2 mg/dL (0.7-1.3) Estimated GFR (Cockcroft-Gault) 29.1 Glucose Level 166 mg/dL (70-99) Calcium Level 9.0 mg/dL (8.5-10.1) Test 05/28/19 07:27 Glucose (Fingerstick) 208 mg/dL (70-99) Assessment and Plan Assessmemt and Plan Problems Medical Problems: (1) Acute kidney injury superimposed on CKD Status: Acute (2) Acute on chronic combined systolic (congestive) and diastolic (congestive) heart failure Status: Acute (3) Acute respiratory failure Status: Acute (4) Acute respiratory failure with hypoxia Status: Acute (5) ABBY (acute kidney injury) Status: Acute (6) CAD (coronary artery disease) Status: Chronic (7) Chronic a-fib Status: Chronic (8) Chronic kidney disease, stage 4 (severe) Status: Acute (9) CKD (chronic kidney disease), stage III Status: Chronic (10) CVA (cerebral vascular accident) Status: Acute (11) DM2 (diabetes mellitus, type 2) Status: Chronic (12) Dyspnea Status: Acute (13) HCAP (healthcare-associated pneumonia) Status: Acute (14) Metabolic encephalopathy Status: Acute (15) Pleural effusion on left Status: Acute (16) Pleural effusion, left Status: Acute (17) Pulmonary edema Status: Acute (18) Sepsis Status: Acute (19) Severe sepsis Status: Acute Comment Review of Relevant I have reviewed the following items nestor (where applicable) has been applied. Labs Laboratory Tests Test 05/26/19 11:56 05/26/19 16:57 05/26/19 21:33 05/27/19 05:47 Glucose (Fingerstick) 171 mg/dL (70-99) 104 mg/dL (70-99) 86 mg/dL (70-99) White Blood Count 7.8 x10^3/uL (4.0-11.0) Red Blood Count 2.31 x10^6/uL (4.30-5.70) Hemoglobin 6.5 g/dL (13.0-17.5) Hematocrit 19.6 % (39.0-53.0) Mean Corpuscular Volume 85 fL (79-100) Mean Corpuscular Hemoglobin 28 pg (25-35) Mean Corpuscular Hemoglobin Concent 33 g/dL (31-37) Red Cell Distribution Width 21.1 % (11.5-14.5) Platelet Count 146 x10^3/uL (140-400) Neutrophils (%) (Auto) 73 % (31-73) Lymphocytes (%) (Auto) 10 % (24-48) Monocytes (%) (Auto) 11 % (0-9) Eosinophils (%) (Auto) 4 % (0-3) Basophils (%) (Auto) 1 % (0-3) Neutrophils # (Auto) 5.7 x10^3/uL (1.8-7.7) Lymphocytes # (Auto) 0.8 x10^3/uL (1.0-4.8) Monocytes # (Auto) 0.9 x10^3/uL (0.0-1.1) Eosinophils # (Auto) 0.3 x10^3/uL (0.0-0.7) Basophils # (Auto) 0.1 x10^3/uL (0.0-0.2) Sodium Level 135 mmol/L (136-145) Potassium Level 4.4 mmol/L (3.5-5.1) Chloride Level 98 mmol/L (98-107) Carbon Dioxide Level 28 mmol/L (21-32) Anion Gap 9 (6-14) Blood Urea Nitrogen 106 mg/dL (8-26) Creatinine 2.3 mg/dL (0.7-1.3) Estimated GFR (Cockcroft-Gault) 27.6 Glucose Level 151 mg/dL (70-99) Calcium Level 8.7 mg/dL (8.5-10.1) Test 05/27/19 07:29 05/27/19 08:15 05/27/19 12:20 05/27/19 17:03 Glucose (Fingerstick) 170 mg/dL (70-99) 149 mg/dL (70-99) 120 mg/dL (70-99) Prothrombin Time 17.0 SEC (11.7-14.0) Prothromb Time International Ratio 1.4 (0.8-1.1) Test 05/27/19 20:52 05/27/19 21:24 05/27/19 23:41 05/28/19 00:30 Glucose (Fingerstick) 60 mg/dL (70-99) 118 mg/dL (70-99) 131 mg/dL (70-99) White Blood Count 11.7 x10^3/uL (4.0-11.0) Red Blood Count 2.58 x10^6/uL (4.30-5.70) Hemoglobin 7.2 g/dL (13.0-17.5) Hematocrit 22.0 % (39.0-53.0) Mean Corpuscular Volume 85 fL (79-100) Mean Corpuscular Hemoglobin 28 pg (25-35) Mean Corpuscular Hemoglobin Concent 33 g/dL (31-37) Red Cell Distribution Width 20.2 % (11.5-14.5) Platelet Count 159 x10^3/uL (140-400) Test 05/28/19 03:50 05/28/19 06:30 05/28/19 07:27 White Blood Count 10.9 x10^3/uL (4.0-11.0) Red Blood Count 2.64 x10^6/uL (4.30-5.70) Hemoglobin 7.6 g/dL (13.0-17.5) Hematocrit 22.7 % (39.0-53.0) Mean Corpuscular Volume 86 fL (79-100) Mean Corpuscular Hemoglobin 29 pg (25-35) Mean Corpuscular Hemoglobin Concent 33 g/dL (31-37) Red Cell Distribution Width 19.7 % (11.5-14.5) Platelet Count 156 x10^3/uL (140-400) Neutrophils (%) (Auto) 79 % (31-73) Lymphocytes (%) (Auto) 8 % (24-48) Monocytes (%) (Auto) 10 % (0-9) Eosinophils (%) (Auto) 2 % (0-3) Basophils (%) (Auto) 1 % (0-3) Neutrophils # (Auto) 8.6 x10^3/uL (1.8-7.7) Lymphocytes # (Auto) 0.9 x10^3/uL (1.0-4.8) Monocytes # (Auto) 1.1 x10^3/uL (0.0-1.1) Eosinophils # (Auto) 0.2 x10^3/uL (0.0-0.7) Basophils # (Auto) 0.1 x10^3/uL (0.0-0.2) Prothrombin Time 18.5 SEC (11.7-14.0) Prothromb Time International Ratio 1.6 (0.8-1.1) Sodium Level 132 mmol/L (136-145) Potassium Level 4.6 mmol/L (3.5-5.1) Chloride Level 96 mmol/L (98-107) Carbon Dioxide Level 27 mmol/L (21-32) Anion Gap 9 (6-14) Blood Urea Nitrogen 108 mg/dL (8-26) Creatinine 2.2 mg/dL (0.7-1.3) Estimated GFR (Cockcroft-Gault) 29.1 Glucose Level 166 mg/dL (70-99) Calcium Level 9.0 mg/dL (8.5-10.1) Glucose (Fingerstick) 216 mg/dL (70-99) 208 mg/dL (70-99) Laboratory Tests Test 05/27/19 12:20 05/27/19 17:03 05/27/19 20:52 05/27/19 21:24 Glucose (Fingerstick) 149 mg/dL (70-99) 120 mg/dL (70-99) 60 mg/dL (70-99) 118 mg/dL (70-99) Test 05/27/19 23:41 05/28/19 00:30 05/28/19 03:50 05/28/19 06:30 Glucose (Fingerstick) 131 mg/dL (70-99) 216 mg/dL (70-99) White Blood Count 11.7 x10^3/uL (4.0-11.0) 10.9 x10^3/uL (4.0-11.0) Red Blood Count 2.58 x10^6/uL (4.30-5.70) 2.64 x10^6/uL (4.30-5.70) Hemoglobin 7.2 g/dL (13.0-17.5) 7.6 g/dL (13.0-17.5) Hematocrit 22.0 % (39.0-53.0) 22.7 % (39.0-53.0) Mean Corpuscular Volume 85 fL (79-100) 86 fL (79-100) Mean Corpuscular Hemoglobin 28 pg (25-35) 29 pg (25-35) Mean Corpuscular Hemoglobin Concent 33 g/dL (31-37) 33 g/dL (31-37) Red Cell Distribution Width 20.2 % (11.5-14.5) 19.7 % (11.5-14.5) Platelet Count 159 x10^3/uL (140-400) 156 x10^3/uL (140-400) Neutrophils (%) (Auto) 79 % (31-73) Lymphocytes (%) (Auto) 8 % (24-48) Monocytes (%) (Auto) 10 % (0-9) Eosinophils (%) (Auto) 2 % (0-3) Basophils (%) (Auto) 1 % (0-3) Neutrophils # (Auto) 8.6 x10^3/uL (1.8-7.7) Lymphocytes # (Auto) 0.9 x10^3/uL (1.0-4.8) Monocytes # (Auto) 1.1 x10^3/uL (0.0-1.1) Eosinophils # (Auto) 0.2 x10^3/uL (0.0-0.7) Basophils # (Auto) 0.1 x10^3/uL (0.0-0.2) Prothrombin Time 18.5 SEC (11.7-14.0) Prothromb Time International Ratio 1.6 (0.8-1.1) Sodium Level 132 mmol/L (136-145) Potassium Level 4.6 mmol/L (3.5-5.1) Chloride Level 96 mmol/L (98-107) Carbon Dioxide Level 27 mmol/L (21-32) Anion Gap 9 (6-14) Blood Urea Nitrogen 108 mg/dL (8-26) Creatinine 2.2 mg/dL (0.7-1.3) Estimated GFR (Cockcroft-Gault) 29.1 Glucose Level 166 mg/dL (70-99) Calcium Level 9.0 mg/dL (8.5-10.1) Test 05/28/19 07:27 Glucose (Fingerstick) 208 mg/dL (70-99) Microbiology 05/16/19 Blood Culture - Final, Complete NO GROWTH AFTER 5 DAYS Medications Current Medications Vancomycin HCl (Vanco Per Pharmacy) 1 each PRN DAILY PRN MC SEE COMMENTS Last administered on 05/16/19at 02:12; Start 05/15/19 at 23:00; Stop 05/17/19 at 06:52; Status DC Levofloxacin/ Dextrose 150 ml @ 100 mls/hr 1X ONCE IV Last administered on 05/16/19at 00:17; Start 05/15/19 at 23:30; Stop 05/16/19 at 00:59; Status DC Sodium Chloride 1,000 ml @ 1,000 mls/hr 1X ONCE IV ; Start 05/15/19 at 23:30; Stop 05/16/19 at 00:29; Status DC Sodium Chloride 1,000 ml @ 1,000 mls/hr 1X ONCE IV Last administered on 05/16/19at 00:17; Start 05/15/19 at 23:30; Stop 05/16/19 at 00:29; Status DC Sodium Chloride 1,000 ml @ 1,000 mls/hr 1X ONCE IV Last administered on 05/16at 00:17; Start 05/15/19 at 23:30; Stop 05/16/19 at 00:29; Status DC Vancomycin HCl 2 gm/Sodium Chloride 500 ml @ 250 mls/hr 1X ONCE IV Last administered on 05/16/19at 00:15; Start 05/16/19 at 00:00; Stop 05/16/19 at 01:59; Status DC Ondansetron HCl (Zofran) 4 mg PRN Q8HRS PRN IV NAUSEA/VOMITING 1ST CHOICE; Start 05/16/19 at 01:45; Stop 05/17/19 at 01:44; Status DC Vancomycin HCl 1.25 gm/Sodium Chloride 250 ml @ 167 mls/hr Q48H IV ; Start 05/18/19 at 00:00; Stop 05/17/19 at 06:52; Status DC Vancomycin HCl (Vancomycin Trough Level) 1 each 1X ONCE MC ; Start 05/19/19 at 23:30; Stop 05/17/19 at 07:19; Status DC Albumin Human 100 ml @ 100 mls/hr 1X ONCE IV Last administered on 05/16/19at 04:14; Start 05/16/19 at 04:30; Stop 05/16/19 at 05:29; Status DC Norepinephrine Bitartrate 250 ml @ 17.031 mls/ hr CONT PRN IV SEE I/O RECORD Last administered on 05/16/19at 04:21; Start 05/16/19 at 04:00; Stop 05/19/19 at 08:36; Status DC Info (FLU VACCINE SCREEN per RX) 1 each 1X ONCE MC ; Start 05/16/19 at 05:00; Stop 05/16/19 at 05:01; Status UNV Albumin Human 250 ml @ 125 mls/hr 1X ONCE IV Last administered on 05/16/19at 05:11; Start 05/16/19 at 05:30; Stop 05/16/19 at 07:29; Status DC Piperacillin Sod/ Tazobactam Sod 2.25 gm/Sodium Chloride 50 ml @ 100 mls/hr Q6HRS IV Last administered on 05/22/19at 06:02; Start 05/16/19 at 13:00; Stop 05/22/19 at 11:04; Status DC Linezolid/Dextrose 300 ml @ 300 mls/hr Q12HR IV Last administered on 05/22/19at 09:01; Start 05/17/19 at 09:00; Stop 05/22/19 at 11:04; Status DC Furosemide (Lasix) 40 mg 1X ONCE IVP Last administered on 05/17/19at 15:47; Start 05/17/19 at 15:45; Stop 05/17/19 at 15:46; Status DC Amino Acids/ Glycerin/ Electrolytes 1,000 ml @ 80 mls/hr [id number] IV Last administered on 05/27/19at 22:01; Start 05/18/19 at 10:00 Aspirin (Ecotrin) 81 mg DAILYWBKFT PO Last administered on 05/26/19at 10:22; Start 05/18/19 at 12:45 Furosemide (Lasix) 40 mg 1X ONCE IVP Last administered on 05/18/19at 15:39; Start 05/18/19 at 15:00; Stop 05/18/19 at 15:01; Status DC Metoprolol Succinate (Toprol Xl) 25 mg DAILY PO Last administered on 05/25/19at 09:08; Start 05/18/19 at 15:00 Insulin Glargine (Lantus Syringe) 12 unit QHS SQ Last administered on 05/20/19at 23:37; Start 05/18/19 at 21:00; Stop 05/21/19 at 09:11; Status DC Insulin Human Lispro (HumaLOG) 0-5 UNITS TIDWMEALS SQ Last administered on 05/20/19at 17:22; Start 05/18/19 at 17:00; Stop 05/21/19 at 09:11; Status DC Dextrose (Dextrose 50%-Water Syringe) 12.5 gm PRN Q15MIN PRN IV SEE COMMENTS; Start 05/18/19 at 17:00; Stop 05/21/19 at 09:12; Status DC Dextrose 250 ml PRN Q15MIN PRN IV SEE COMMENTS; Start 05/18/19 at 17:00; Stop 05/21/19 at 09:12; Status DC Insulin Human Lispro (HumaLOG) 6 units TIDWMEALS SQ Last administered on 05/27/19at 17:17; Start 05/18/19 at 17:00 Buspirone HCl (Buspar) 5 mg BID PO Last administered on 05/27/19at 22:02; Start 05/19/19 at 10:00 Carbidopa/Levodopa (Sinemet Cr) 1 tab.sa TID PO Last administered on 05/27/19 22:02; Start 05/19/19 at 09:00 Levothyroxine Sodium (Synthroid) 125 mcg DAILY06 PO Last administered on 05/28/19 06:26; Start 05/19/19 at 10:30 Polyethylene Glycol (miraLAX PACKET) 17 gm BID PO Last administered on 05/27/19 09:58; Start 05/19/19 at 09:00 Sevelamer Carbonate (Renvela) 2,400 mg TIDAC PO Last administered on 05/20/19 09:37; Start 05/19/19 at 11:30; Stop 05/20/19 at 14:10; Status DC Lactobacillus Rhamnosus (Culturelle) 1 cap BID PO Last administered on 05/27/19 22:02; Start 05/20/19 at 21:00 Insulin Glargine (Lantus Syringe) 15 unit QHS SQ Last administered on 05/25/19 22:06; Start 05/21/19 at 21:00 Insulin Human Lispro (HumaLOG) 0-9 UNITS TIDWMEALS SQ Last administered on 05/27/19 10:20; Start 05/21/19 at 09:30 Dextrose (Dextrose 50%-Water Syringe) 12.5 gm PRN Q15MIN PRN IV SEE COMMENTS Last administered on 05/27/19 21:11; Start 05/21/19 at 09:15 Dextrose 250 ml PRN Q15MIN PRN IV SEE COMMENTS; Start 05/21/19 at 09:15 Acetaminophen (Tylenol) 650 mg PRN Q6HRS PRN PO MILD PAIN 1-3; Start 05/21/19 at 09:15 Aspirin (Ecotrin) 81 mg DAILY PO ; Start 05/22/19 at 09:00; Status UNV Bisacodyl (Dulcolax Supp) 10 mg PRN DAILY PRN RC CONSTIPATION; Start 05/21/19 at 09:15 Cyanocobalamin (Vitamin B-12) 1,000 mcg DAILY PO Last administered on 05/27/19at 09:53; Start 05/21/19 at 10:00 Glucose (Insta-Glucose) 15 gm PRN DAILY PRN PO Hypoglycemia; Start 05/21/19 at 09:15 Metolazone (Zaroxolyn) 2.5 mg PRN DAILY PRN PO Weight gain/Fluid gain; Start 05/21/19 at 09:15 Metoprolol Succinate (Toprol Xl) 25 mg DAILY PO ; Start 05/22/19 at 09:00; Status UNV Sodium Monofluorophosphate (Fleet Adult) 133 ml PRN DAILY PRN RC CONSTIPATION; Start 05/21/19 at 09:15 Pantoprazole Sodium (Protonix) 40 mg DAILYAC PO Last administered on 05/27/19at 09:56; Start 05/21/19 at 10:00 Potassium Chloride (Klor-Con) 20 meq PRN DAILY PRN PO IF PRN METOLAZONE GIVEN; Start 05/21/19 at 09:15 Senna/Docusate Sodium (Senna Plus) 1 tab BID PO Last administered on 05/27/19at 09:56; Start 05/21/19 at 10:00 Simethicone (Gas-X) 80 mg PRN Q6HRS PRN PO HEARTBURN / GAS; Start 05/21/19 at 09:15 Torsemide (Demadex) 100 mg BID92 PO Last administered on 05/25/19at 09:08; Start 05/21/19 at 10:00; Stop 05/25/19 at 11:47; Status DC Trazodone HCl (Desyrel) 100 mg QHS PO Last administered on 05/27/19at 22:02; Start 05/21/19 at 21:00 Warfarin Sodium (Coumadin) 2 mg DAILY16 PO ; Start 05/21/19 at 16:00; Stop 05/22/19 at 15:45; Status DC Febuxostat (Uloric) 80 mg DAILY PO Last administered on 05/27/19 09:57; Start 05/21/19 at 10:00 Ferrous Sulfate (Feosol) 325 mg DAILYWBKFT PO Last administered on 05/27/19at 09:54; Start 05/21/19 at 10:00 Fluticasone Propionate (Flonase) 2 spray DAILY NS Last administered on 05/27/19at 09:57; Start 05/21/19 at 10:00 Lactobacillus Rhamnosus (Culturelle) 1 cap DAILY PO ; Start 05/22/19 at 09:00; Status UNV Non-Formulary Medication (Melatonin ) 2 tab QHS PO ; Start 05/21/19 at 21:00; Status UNV Metolazone (Zaroxolyn) 7.5 mg DAILY PO Last administered on 05/23/19 08:57; Start 05/21/19 at 10:00; Stop 05/23/19 at 11:13; Status DC Potassium Chloride (Klor-Con) 40 meq DAILYWBKFT PO Last administered on 05/27/19 09:55; Start 05/21/19 at 10:00 Atorvastatin Calcium (Lipitor) 5 mg QHS PO Last administered on 05/27/19 22:02; Start 05/21/19 at 21:00 Vitamin D (Vitamin D3) 5,000 unit DAILY PO Last administered on 05/27/19 09:55; Start 05/21/19 at 10:00 Warfarin Sodium (Coumadin Per Pharmacy) 1 each PRN DAILY PRN MC SEE COMMENTS Last administered on 05/27/19at 14:12; Start 05/21/19 at 09:15 Ondansetron HCl (Zofran) 4 mg PRN Q6HRS PRN IV NAUSEA/VOMITING Last administered on 05/22/19 23:05; Start 05/21/19 at 11:00 Amoxicillin/ Clavulanate Potassium (Augmentin 875/ 125mg) 1 tab DAILY PO Last administered on 05/27/19 09:56; Start 05/23/19 at 09:00 Warfarin Sodium (Coumadin) 5 mg 1X WARF ONCE PO ; Start 05/22/19 at 16:00; Stop 05/22/19 at 16:01; Status DC Warfarin Sodium (Coumadin) 5 mg 1X WARF ONCE PO Last administered on 05/23/19 17:59; Start 05/23/19 at 17:00; Stop 05/23/19 at 17:01; Status DC Warfarin Sodium (Coumadin) 6 mg 1X WARF ONCE PO Last administered on 05/24/19at 21:16; Start 05/24/19 at 16:00; Stop 05/24/19 at 16:01; Status DC Sodium Chloride 1,000 ml @ 75 mls/hr 1X ONCE IV Last administered on 05/24/19at 14:48; Start 05/24/19 at 13:00; Stop 05/25/19 at 02:19; Status DC Hydralazine HCl (Apresoline Inj) 10 mg PRN Q4HRS PRN IVP ELEVATED BP, SEE COMMENTS; Start 05/24/19 at 14:15 Warfarin Sodium (Coumadin) 7.5 mg 1X WARF ONCE PO Last administered on 05/25/19at 15:27; Start 05/25/19 at 16:00; Stop 05/25/19 at 16:01; Status DC Torsemide (Demadex) 40 mg DAILY PO Last administered on 05/27/19at 10:03; Start 05/26/19 at 09:00 Warfarin Sodium (Coumadin) 7.5 mg 1X WARF ONCE PO Last administered on 04/30 04/16at 15:30; Start 05/26/19 at 16:00; Stop 05/26/19 at 16:01; Status DC Warfarin Sodium (Coumadin) 7.5 mg 1X WARF ONCE PO Last administered on 05/27/19at 16:00; Start 05/27/19 at 16:00; Stop 05/27/19 at 16:01; Status DC Alteplase, Recombinant 10 mg/ Sodium Chloride 50 ml @ 200 mls/hr 1X ONCE IV ; Start 05/28/19 at 06:45; Stop 05/28/19 at 06:59; Status UNV Alteplase, Recombinant (Cathflo For Central Catheter Clearance) 1 mg 1X ONCE INT CAT Last administered on 05/28/19at 07:21; Start 05/28/19 at 07:00; Stop 05/28/19 at 07:01; Status DC Active Scripts Active Novolog Flexpen (Insulin Aspart) 300 Units/3 Ml Insuln.pen 8 Units SQ TIDWMEALS Reported Trazodone Hcl 100 Mg Tablet 1 Tab PO QHS Tramadol Hcl 50 Mg Tablet 50 Mg PO Q8HRS Torsemide 20 Mg Tablet 100 Mg PO BID Temazepam 15 Mg Capsule 1 Cap PO QHS Sinemet Cr 25-100 Tablet (Carbidopa/Levodopa) 1 Each Tablet.er 1 Tab PO TID Simethicone 80 Mg Tab.chew 80 Mg PO PRN Q6HRS PRN Senna Plus 8.6-50 mg Tablet (Sennosides/Docusate Sodium) 1 Each Tablet 1 Each PO BID Renvela (Sevelamer Carbonate) 800 Mg Tablet 3 Tab PO TIDAC Protonix (Pantoprazole Sodium) 40 Mg Tablet.dr 40 Mg PO DAILYAC Pravastatin Sodium 20 Mg Tablet 1 Tab PO HS Potassium Chloride 20 Meq Tablet.er 2 Tab PO DAILY Klor-Con M20 (Potassium Chloride) 20 Meq Tab.er.prt 1 Tab PO PRN DAILY PRN Novolog (Insulin Aspart) 100 Unit/1 Ml Cartridge 8 Unit SQ TIDBFRMEAL NITROGLYCERIN SubLingual (Nitroglycerin) 0.4 Mg Tab.subl 1 Tab SL UD PRN Miralax (Polyethylene Glycol 3350) 17 Gm Powd.pack 1 Packet PO BID Metoprolol Succinate ( Xl ) (Metoprolol Succinate) 25 Mg Tab.er.24h 1 Tab PO DAILY Metolazone 5 Mg Tablet 1.5 Tab PO DAILY Metolazone 2.5 Mg Tablet 2.5 Mg PO PRN DAILY PRN Melatonin 3 Mg Tablet 2 Tab PO QHS Levothyroxine Sodium 125 Mcg Tablet 1 Tab PO DAILY Lantus Solostar (Insulin Glargine,Hum.rec.anlog) 100 Unit/1 Ml Insuln.pen 12 Unit SQ QHS Acidophilus (Lactobacillus Acidophilus) 1 Each Capsule 1 Each PO DAILY Glucose Gel (Dextrose) 38 Gm Gel..gram. 38 Gm PO PRN PRN Gabapentin (Gabapentin) 100 Mg Capsule 100 Mg PO TID Flonase Allergy Relief (Fluticasone Propionate) 9.9 Ml [place].susp 2 Sprays NS DAILY Fleet Enema (Na Phos,M-B/Na Phos,Di-Ba) 133 Ml Enema 133 Ml RC PRN PRN Ferrous Gluconate 240 Mg Tablet 240 Mg PO DAILY Uloric (Febuxostat) 80 Mg Tablet 1 Tab PO DAILY Cymbalta (Duloxetine Hcl) 60 Mg Capsule.dr 1 Cap PO HS Cymbalta (Duloxetine Hcl) 30 Mg Capsule.dr 1 Cap PO DAILY Vitamin B-12 (Cyanocobalamin (Vitamin B-12)) 1,000 Mcg Tablet 1 Tab PO DAILY Coumadin (Warfarin Sodium) 2 Mg Tablet 1 Tab PO DAILY Vitamin D3 (Cholecalciferol (Vitamin D3)) 5,000 Unit Tablet 1 Tab PO DAILY Buspirone Hcl 5 Mg Tablet 1 Tab PO BID Bisacodyl 10 Mg Supp.rect 10 Mg RC PRN DAILY PRN Tylenol (Acetaminophen) 325 Mg Tablet 2 Tab PO PRN Q6HRS PRN Sertraline Hcl 100 Mg Tablet 100 Mg PO DAILY Aspir 81 (Aspirin) 81 Mg Tablet. 1 Tab PO DAILY Vitals/I & O Vital Sign - Last 24 Hours 05/27/19 05/27/19 05/27/19 05/27/19 09:00 11:00 14:45 15:00 Temp 97.8 98.1 98.0 97.8 98.1 98.0 Pulse 70 67 70 67 Resp 18 16 16 B/P (MAP) 124/55 110/43 (65) 119/51 94/53 Pulse Ox 93 O2 Delivery Room Air 05/27/19 05/27/19 05/27/19 05/27/19 15:00 15:15 15:30 15:45 Temp 98.1 98.0 98.1 98.0 98.1 98.0 98.1 98.0 Pulse 70 76 69 70 Resp 16 18 18 20 B/P (MAP) 119/51 (73) 118/52 123/57 132/54 Pulse Ox 98 O2 Delivery Room Air 05/27/19 05/27/19 05/27/19 05/27/19 16:00 16:30 19:15 20:00 Temp 98.1 98.1 98.1 98.1 98.1 98.1 Pulse 69 74 69 Resp 18 20 20 B/P (MAP) 128/62 108/44 142/53 (82) Pulse Ox 96 O2 Delivery Room Air Room Air 05/27/19 05/28/19 05/28/19 23:20 03:20 07:57 Temp 97.7 97.5 97.4 97.7 97.5 97.4 Pulse 70 69 70 Resp 20 20 20 B/P (MAP) 104/40 (61) 124/54 (77) 120/48 (72) Pulse Ox 94 93 92 O2 Delivery Room Air Room Air Room Air Intake and Output 05/27/19 05/27/19 05/28/19 15:00 23:00 07:00 Intake Total 333 ml 350 ml 200 ml Output Total 0 ml 575 ml 650 ml Balance 333 ml -225 ml -450 ml SCOTT VASQUEZ MD May 28, 2019 08:25
[2019-05-28] MEDS: METOPROLOL SUCC 24HR ER 25 MG TAB.ER.24H. PO SCH (09:00)
[2019-05-28] MEDS: POLYETHYLENE GLYCOL 3350 17 GM PACKET. PO SCH ×2 (09:00→21:39)
--- NOTE | 2019-05-28 09:36 | PDOC ---
Subjective: Subjective: I asked if he ate a little - says "nope" and then falls asleep. Objective: Objective: 2 stools charted. Vital Signs: Vital Signs Date Time Temp Pulse Resp B/P (MAP) Pulse Ox O2 Delivery O2 Flow Rate FiO2 05/28/19 07:57 97.4 70 20 120/48 (72) 92 Room Air 97.4 05/27/19 07:00 3.0 Labs: Laboratory Tests Test 05/27/19 12:20 05/27/19 17:03 05/27/19 20:52 05/27/19 21:24 Glucose (Fingerstick) 149 mg/dL (70-99) 120 mg/dL (70-99) 60 mg/dL (70-99) 118 mg/dL (70-99) Test 05/27/19 23:41 05/28/19 06:30 05/28/19 07:27 Glucose (Fingerstick) 131 mg/dL (70-99) 216 mg/dL (70-99) 208 mg/dL (70-99) PE: GEN: NAD - breakfast tray shows eggs about half consumed, looks like also had some bites of cream of wheat LUNGS: NC HEART: RRR ABD: S/ND/NT NEURO/PSYCH: confused, drowsy A/P: Poor appetite - on PPN Anemia - no reports of obvious GI bleeding, required transfusion yesterday; on Warfarin (INR 1.6), ASA, iron, B12 CKD -- Does seem to be eating some w/ help. Continue PPI, await palliative discussion. NIKOLAY PROCTOR May 28, 2019 09:36
[2019-05-28] MEDS: FEBUXOSTAT 40 MG TABLET PO SCH (09:51)
[2019-05-28] MEDS: TORSEMIDE 20 MG TABLET. PO SCH (09:51)
[2019-05-28] MEDS: busPIRone 5 MG TABLET. PO SCH ×2 (09:51→21:38)
[2019-05-28] MEDS: FLUTICASONE 50MCG/NASAL SPRAY 16GM BOTTLE. NS SCH (09:51)
[2019-05-28] MEDS: LACTOBACILLUS RHAMNOSUS GG 1 CAPSULE. PO SCH ×2 (09:52→21:37)
[2019-05-28] MEDS: PANTOPRAZOLE 40 MG TABLET.DR. PO SCH (09:52)
[2019-05-28] MEDS: CHOLECALCIFEROL (VITAMIN D3) 5,000 UNIT CAPSULE PO SCH (09:52)
[2019-05-28] MEDS: CARBIDOPA/LEVODOPA CR 25/100MG TABLET.SA. PO SCH ×3 (09:52→21:39)
[2019-05-28] MEDS: CYANOCOBALAMIN (VITAMIN B-12) 1,000 MCG TABLET. PO SCH (09:52)
[2019-05-28] MEDS: AMOXICILLIN/K CLAV 875/125MG TABLET. PO SCH (09:52)
[2019-05-28] MEDS: ASPIRIN ENTERIC COATED 81 MG TABLET.DR. PO SCH (09:52)
[2019-05-28] MEDS: FERROUS SULFATE 325 MG TABLET. PO SCH (09:53)
[2019-05-28] MEDS: SENNOSIDES/DOCUSATE 8.6/50MG TABLET. PO SCH ×2 (09:56→21:38)
[2019-05-28] MEDS: POTASSIUM CHLORIDE 20 MEQ TABLET.ER. PO SCH (09:56)
[2019-05-28] MEDS: INSULIN LISPRO 300 UNITS/3 ML VIAL. SQ SCH ×6 (10:05→18:46)
[2019-05-28 11:39] VITALS: BP 128/54
[2019-05-28] MEDS: AMINO AC 3%/ELECTROLYTE/GLYCER 1,000 ML IV SCH (13:35)
--- NOTE | 2019-05-28 13:50 | PDOC ---
SUBJECTIVE ROS Stable, awake, OBJECTIVE Vital Signs Vital Signs Date Time Temp Pulse Resp B/P (MAP) Pulse Ox O2 Delivery O2 Flow Rate FiO2 05/28/19 11:39 97.9 76 18 128/54 (78) 94 Room Air 97.9 05/27/19 07:00 3.0 I & 0 Intake and Output 05/28/19 06:59 Intake Total 883 ml Output Total 1225 ml Balance -342 ml Intake Oral 200 ml Blood Product IV Normal Saline Flush 683 ml Output Urine Total 1225 ml # Bowel Movements 2 PHYSICAL EXAM Physical Exam GENERAL: NAD HEEN-OM moist NECK: Supple. HEART: S1, S2 with a 2/6 murmur. Pacemaker without signs of complications. ABDOMEN: Soft, nontender. GENITOURINARY: Has a Garcia in place. EXTREMITIES: Bilateral lower extremity BKAs, No edema SKIN: No rash NEUROLOGIC: Recent Stroke, DIAGNOSIS/ASSESSMENT Assessment & Plan CKD STAGE 3- at least since 2011, no prior labs Reviewed records from our office ,Saw Dr. Jolly in 2016 Baseline Cr 1.5-2.2 (in 2017) no interval labs ABBY - ATN suspect sec to Sepsis/ Hypotension later Overdiuresed UA and Renal US unremarkable , UOP adquate, stable Stable renal function Metolazone dced and Demadex decreased ro 40 mg QD last week Lt pleural effusion - per card/Pulm Metabolic encephalopathy: Hx of CVA p Neurology following. 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% ICM s/o AICD/CRTD , paced rhythm with underlying afib CAD s/p CABG 03/06 Chronic AFIB Diabetes, II Anemia of chronic disease- stable COMMENT/RELEVANT DATA Meds Current Medications Medications (Trade) Dose Ordered Sig/Adithya Start Time Stop Time Status Last Admin Dose Admin Acetaminophen (Tylenol) 650 mg PRN Q6HRS PRN 05/21/19 09:15 05/28/19 10:26 650 MG Albumin Human 250 ml @ 125 mls/hr 1X ONCE 05/16/19 05:30 05/16/19 07:29 DC 05/16/19 05:11 125 MLS/HR Alteplase, Recombinant (Cathflo For Central Catheter Clearance) 1 mg 1X ONCE 05/28/19 07:00 05/28/19 07:01 DC 05/28/19 07:21 1 MG Alteplase, Recombinant 10 mg/ Sodium Chloride 50 ml @ 200 mls/hr 1X ONCE 05/28/19 06:45 05/28/19 06:59 UNV Amino Acids/ Glycerin/ Electrolytes 1,000 ml @ 80 mls/hr [id number] 05/18/19 10:00 05/28/19 13:35 80 MLS/HR Amoxicillin/ Clavulanate Potassium (Augmentin 875/ 125mg) 1 tab DAILY 05/23/19 09:00 05/28/19 09:52 1 TAB Aspirin (Ecotrin) 81 mg DAILY 05/22/19 09:00 UNV Atorvastatin Calcium (Lipitor) 5 mg QHS 05/21/19 21:00 05/27/19 22:02 5 MG Bisacodyl (Dulcolax Supp) 10 mg PRN DAILY PRN 05/21/19 09:15 Buspirone HCl (Buspar) 5 mg BID 05/19/19 10:00 05/28/19 09:51 5 MG Carbidopa/Levodopa (Sinemet Cr) 1 tab.sa TID 05/19/19 09:00 05/28/19 12:58 1 TAB.SA Cyanocobalamin (Vitamin B-12) 1,000 mcg DAILY 05/21/19 10:00 05/28/19 09:52 1,000 MCG Dextrose 250 ml PRN Q15MIN PRN 05/21/19 09:15 Dextrose (Dextrose 50%-Water Syringe) 12.5 gm PRN Q15MIN PRN 05/21/19 09:15 05/27/19 21:11 12.5 GM Febuxostat (Uloric) 80 mg DAILY 05/21/19 10:00 05/28/19 09:51 80 MG Ferrous Sulfate (Feosol) 325 mg DAILYWBKFT 05/21/19 10:00 05/28/19 09:53 325 MG Fluticasone Propionate (Flonase) 2 spray DAILY 05/21/19 10:00 05/28/19 09:51 2 SPRAY Furosemide (Lasix) 40 mg 1X ONCE 05/18/19 15:00 05/18/19 15:01 DC 05/18/19 15:39 40 MG Glucose (Insta-Glucose) 15 gm PRN DAILY PRN 05/21/19 09:15 Hydralazine HCl (Apresoline Inj) 10 mg PRN Q4HRS PRN 05/24/19 14:15 Info (FLU VACCINE SCREEN per RX) 1 each 1X ONCE 05/16/19 05:00 05/16/19 05:01 UNV Insulin Glargine (Lantus Syringe) 15 unit QHS 05/21/19 21:00 05/25/19 22:06 15 UNIT Insulin Human Lispro (HumaLOG) 0-9 UNITS TIDWMEALS 05/21/19 09:30 05/28/19 13:00 3 UNITS Lactobacillus Rhamnosus (Culturelle) 1 cap DAILY 05/22/19 09:00 UNV Levofloxacin/ Dextrose 150 ml @ 100 mls/hr 1X ONCE 05/15/19 23:30 05/16/19 00:59 DC 05/16/19 00:17 100 MLS/HR Levothyroxine Sodium (Synthroid) 125 mcg DAILY06 05/19/19 10:30 05/28/19 06:26 125 MCG Linezolid/Dextrose 300 ml @ 300 mls/hr Q12HR 05/17/19 09:00 05/22/19 11:04 DC 05/22/19 09:01 300 MLS/HR Metolazone (Zaroxolyn) 7.5 mg DAILY 05/21/19 10:00 05/23/19 11:13 DC 05/23/19 08:57 7.5 MG Metoprolol Succinate (Toprol Xl) 25 mg DAILY 05/22/19 09:00 UNV Non-Formulary Medication (Melatonin ) 2 tab QHS 05/21/19 21:00 UNV Norepinephrine Bitartrate 250 ml @ 17.031 mls/ hr CONT PRN 05/16/19 04:00 05/19/19 08:36 DC 05/16/19 04:21 3.406 MLS/HR Ondansetron HCl (Zofran) 4 mg PRN Q6HRS PRN 05/21/19 11:00 05/22/19 23:05 4 MG Pantoprazole Sodium (Protonix) 40 mg DAILYAC 05/21/19 10:00 05/28/19 09:52 40 MG Piperacillin Sod/ Tazobactam Sod 2.25 gm/Sodium Chloride 50 ml @ 100 mls/hr Q6HRS 05/16/19 13:00 05/22/19 11:04 DC 05/22/19 06:02 100 MLS/HR Polyethylene Glycol (miraLAX PACKET) 17 gm BID 05/19/19 09:00 05/27/19 09:58 17 GM Potassium Chloride (Klor-Con) 40 meq DAILYWBKFT 05/21/19 10:00 05/28/19 09:56 40 MEQ Senna/Docusate Sodium (Senna Plus) 1 tab BID 05/21/19 10:00 05/28/19 09:56 1 TAB Sevelamer Carbonate (Renvela) 2,400 mg TIDAC 05/19/19 11:30 05/20/19 14:10 DC 05/20/19 09:37 2,400 MG Simethicone (Gas-X) 80 mg PRN Q6HRS PRN 05/21/19 09:15 Sodium Monofluorophosphate (Fleet Adult) 133 ml PRN DAILY PRN 05/21/19 09:15 Sodium Chloride 1,000 ml @ 75 mls/hr 1X ONCE 05/24/19 13:00 05/25/19 02:19 DC 05/24/19 14:48 75 MLS/HR Torsemide (Demadex) 40 mg DAILY 05/26/19 09:00 05/28/19 09:51 40 MG Trazodone HCl (Desyrel) 100 mg QHS 05/21/19 21:00 05/27/19 22:02 100 MG Vancomycin HCl (Vanco Per Pharmacy) 1 each PRN DAILY PRN 05/15/19 23:00 05/17/19 06:52 DC 05/16/19 02:12 1 EACH Vancomycin HCl (Vancomycin Trough Level) 1 each 1X ONCE 05/19/19 23:30 05/17/19 07:19 DC Vancomycin HCl 1.25 gm/Sodium Chloride 250 ml @ 167 mls/hr Q48H 05/18/19 00:00 05/17/19 06:52 DC Vancomycin HCl 2 gm/Sodium Chloride 500 ml @ 250 mls/hr 1X ONCE 05/16/19 00:00 05/16/19 01:59 DC 05/16/19 00:15 250 MLS/HR Vitamin D (Vitamin D3) 5,000 unit DAILY 05/21/19 10:00 05/28/19 09:52 5,000 UNIT Warfarin Sodium (Coumadin Per Pharmacy) 1 each PRN DAILY PRN 05/21/19 09:15 05/27/19 14:12 1 EACH Warfarin Sodium (Coumadin) 7.5 mg 1X WARF ONCE 05/27/19 16:00 05/27/19 16:01 DC 05/27/19 16:00 7.5 MG Lab Laboratory Tests Test 05/27/19 17:03 05/27/19 20:52 05/27/19 21:24 05/27/19 23:41 Glucose (Fingerstick) 120 mg/dL (70-99) 60 mg/dL (70-99) 118 mg/dL (70-99) 131 mg/dL (70-99) Test 05/28/19 00:30 05/28/19 03:50 05/28/19 06:30 05/28/19 07:27 White Blood Count 11.7 x10^3/uL (4.0-11.0) 10.9 x10^3/uL (4.0-11.0) Red Blood Count 2.58 x10^6/uL (4.30-5.70) 2.64 x10^6/uL (4.30-5.70) Hemoglobin 7.2 g/dL (13.0-17.5) 7.6 g/dL (13.0-17.5) Hematocrit 22.0 % (39.0-53.0) 22.7 % (39.0-53.0) Mean Corpuscular Volume 85 fL (79-100) 86 fL (79-100) Mean Corpuscular Hemoglobin 28 pg (25-35) 29 pg (25-35) Mean Corpuscular Hemoglobin Concent 33 g/dL (31-37) 33 g/dL (31-37) Red Cell Distribution Width 20.2 % (11.5-14.5) 19.7 % (11.5-14.5) Platelet Count 159 x10^3/uL (140-400) 156 x10^3/uL (140-400) Neutrophils (%) (Auto) 79 % (31-73) Lymphocytes (%) (Auto) 8 % (24-48) Monocytes (%) (Auto) 10 % (0-9) Eosinophils (%) (Auto) 2 % (0-3) Basophils (%) (Auto) 1 % (0-3) Neutrophils # (Auto) 8.6 x10^3/uL (1.8-7.7) Lymphocytes # (Auto) 0.9 x10^3/uL (1.0-4.8) Monocytes # (Auto) 1.1 x10^3/uL (0.0-1.1) Eosinophils # (Auto) 0.2 x10^3/uL (0.0-0.7) Basophils # (Auto) 0.1 x10^3/uL (0.0-0.2) Prothrombin Time 18.5 SEC (11.7-14.0) Prothromb Time International Ratio 1.6 (0.8-1.1) Sodium Level 132 mmol/L (136-145) Potassium Level 4.6 mmol/L (3.5-5.1) Chloride Level 96 mmol/L (98-107) Carbon Dioxide Level 27 mmol/L (21-32) Anion Gap 9 (6-14) Blood Urea Nitrogen 108 mg/dL (8-26) Creatinine 2.2 mg/dL (0.7-1.3) Estimated GFR (Cockcroft-Gault) 29.1 Glucose Level 166 mg/dL (70-99) Calcium Level 9.0 mg/dL (8.5-10.1) Glucose (Fingerstick) 216 mg/dL (70-99) 208 mg/dL (70-99) Test 05/28/19 11:02 Glucose (Fingerstick) 218 mg/dL (70-99) Results All relevant outside records, renal labs, imaging studies, telemetry/EKG's were reviewed. ANTHONY ORDAZ MD May 28, 2019 13:50
--- NOTE | 2019-05-28 14:17 | PDOC2 ---
PALLIATIVE CARE Palliative Care Note Palliative Care Consult requested by Dr. Camacho to address goals of care Medical Assessment per medical record; Severe sepsis diarrhea [facility] resident Metabolic encephalopathy, improved Hx CVA ckd stage 4-5 Weakness and debility, marked Pleural effusion CHF, stable Obesity, BMI 35 RUE ? cellulitis ABBY on CKD - likely this is vasomotor nephropathy due to poor PO intake Afib Cerebellar infarct - on CT scan, ? age Cardiomyopathy with pacemaker Severe protein calorie malnutrition\ ON PPN dysphagia -on dysphagia 1 diet uncontrolled hypertension 05/24 POOR DENTITION Patient seen at 0950. Awakens to verbal stimuli but remains lethargic. Received permission to call Edgardo and Socorro Lang. Spoke with Khalif. Informed patient has a son Estuardo. Attempted to call--no answer. Edgardo stated patient and son do not have a relationship. Edgardo had called to inform him of his father's decline and Estuardo hung the phone up on him. Spoke with SW at [facility]. patient does not have DPOA. Had initiated document and voiced his wishes but document was not signed prior to his recent decline. Plan family meeting today at 1830 1942 Patient more alert this pm . Patient is not able to accurately describe why he is in the hospital. Received permission from patient to talk with x- cousins/friends about his health care and decisions. Edgardo and his Socorro and Henrique/brother of Edgardo. Reviewed above medical condition. 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 They had lost some contact until this last year. Edgardo, Henrique and Socorro do not feel that he is able to think clearly and make his own decisions at this time. They have have never had specific conversation about what he would want done if he became very sick. They have been in conversation at [facility] about becoming DPOA for health care decisions or guardian. They would consider becoming DPOA for health care only, but they would want to have more conversation with his and hear his wishes Reviewed patient wishes on copy of [facility] document. Confirmed Code Status; DNR/DNI Plan: patient to return to [facility] facility. Will need to have more discussion with patient and obtain his input if he is able to provide Above friends have been in conversation with at [facility]. Above shared with BLAS Chamberlain RN May 28, 2019 14:17
--- NOTE | 2019-05-28 15:31 | NUR ---
SW following pt. Palliative care meeting is scheduled for today at 1830. Will continue to follow.
--- NOTE | 2019-05-28 15:37 | NUR ---
Pharmacy Warfarin Dosing Note S: Pharmacy consulted to assist with anticoagulation therapy O: CORAZON BLANCAS is a 78 year old M with Atrial Fibrillation LABS: Last INR: 1.6 Last HGB: 7.6 Last HCT: 22.7 Last PLT: 156 Last dose of 7.5 mg given on 05/27/19 at 1600 Ongoing Drug Interactions: ASA, Zosyn A:INR of 1.6 is below desired range of 2 - 3; trending up with recent dosing of 7.5 mg x 2 days. Hemoglobin improved this AM. P: Warfarin 7.5 mg today at 1600 Bridge Therapy: None Next INR due 05/29/19 Pharmacy anticoagulation service will continue to follow. MARY GRACE AGUILAR [facility], 05/28/19 [id number]
[2019-05-28 15:44] VITALS: BP 122/58
[2019-05-28] MEDS ORDERED: WARFARIN 7.5 MG TABLET. PO ONE (16:00)
--- NOTE | 2019-05-28 16:21 | PDOC ---
PROGRESS NOTES Assessment Assessment Metabolic encephalopathy. Recent 2 cm right cerebellar infarct. Sepsis. Hypotension. CAD. CHF. HTN. HLD. CKD. Bilateral BKA. Obesity. Cognitive impairment. RECOMMENDATIONS/PLAN: He has been treated with Coumadin. ASA 81 mg daily. Lipitor HS. Treat medical diseases. Repeat HCT due to condition worse. OT/PT. Past Medical History Cardiovascular: AFIB (/flutter), CAD, CHF, HTN, Hyperlipidemia GI: Constipation Rheumatologic: Gout Renal/: Chronic renal failure (IV), Benign prostatic enlarg. Endocrine: Diabetes Dermatology: Basal cell Past Surgical History Pacemaker (/defibrillator), CABG, Cataract Removal, Hernia Repair (ventral), Tonsillectomy, Other (cardiac cath, bilateral BKA, right foot hammertoe) Family History No pertinent hx Social History Single, [facility] resident, does not use alcohol or tobacco Allergies Coded Allergies: bumetanide (Verified Allergy, Intermediate, 05/31/18) cephalexin (Verified Allergy, Intermediate, 05/16/19) HAS TOLERATED MERREM AND ZOSYN metformin (Verified Allergy, Intermediate, 05/31/18) ROS Negative for fever, chills, weight loss, shortness of breath, chest pain, indigestion, hematochezia, melena, and dysuria. Full 14-point review of systems is negative. MEDICATIONS: Refer to [facility] PHYSICAL EXAMINATION: General appearance in subacute distress. HEENT: Normocephalic and nontraumatic. Eyes, nose, ears, and throat are unremarkable. Hearing decrease. Neck is supple. No lymphadenopathy. No Crepitus. Cardiovascular: S1, S2, seemed regular rate and rhythm. Pulmonary: Decreased to auscultation bilaterally. Abdomen: Bowel sounds are positive. Abdomen is soft, nontender, and nondistended. Extremities: No rash, lesions, or edema. No restriction of range of motion NEUROLOGICAL EXAMINATION: Drowsiness. Not follow commands. Not oriented to time, place and person. PERRL. EOMI. CN: no focal findings. Muscle tone: within normal. Muscle strength: 4_ DTR: 1 Plantar reflex: Neutral response bilaterally Gait: not able to walk. BKA. Sensory exam: no abnormal findings. No cerebellar signs elicited. F-T-N test fine. Objective Objective Vital Signs Date Time Temp Pulse Resp B/P (MAP) Pulse Ox O2 Delivery O2 Flow Rate FiO2 05/28/19 15:44 97.4 72 18 122/58 (79) 96 Room Air 97.4 05/27/19 07:00 3.0 Intake and Output 05/28/19 07:00 Intake Total 883 ml Output Total 1225 ml Balance -342 ml Intake Oral 200 ml Blood Product IV Normal Saline Flush 683 ml Output Urine Total 1225 ml # Bowel Movements 2 Vitals Signs Vitals VS - Last 72 Hours, by Label Date Time Temp Pulse Resp B/P (MAP) Pulse Ox O2 Delivery O2 Flow Rate FiO2 05/28/19 15:44 97.4 72 18 122/58 (79) 96 Room Air 97.4 05/28/19 11:39 97.9 76 18 128/54 (78) 94 Room Air 97.9 05/28/19 08:00 Room Air 05/28/19 07:57 97.4 70 20 120/48 (72) 92 Room Air 97.4 05/28/19 03:20 97.5 69 20 124/54 (77) 93 Room Air 97.5 05/27/19 23:20 97.7 70 20 104/40 (61) 94 Room Air 97.7 05/27/19 20:00 Room Air 05/27/19 19:15 98.1 69 20 142/53 (82) 96 Room Air 98.1 05/27/19 16:30 98.1 74 20 108/44 98.1 05/27/19 16:00 98.1 69 18 128/62 98.1 05/27/19 15:45 98.0 70 20 132/54 98.0 05/27/19 15:30 98.1 69 18 123/57 98.1 05/27/19 15:15 98.0 76 18 118/52 98.0 05/27/19 15:00 98.1 70 16 119/51 (73) 98 Room Air 98.1 05/27/19 15:00 98.0 67 16 94/53 98.0 05/27/19 14:45 98.1 70 16 119/51 98.1 05/27/19 11:00 97.8 67 18 110/43 (65) 93 Room Air 97.8 05/27/19 09:00 70 124/55 05/27/19 08:00 Room Air 05/27/19 07:00 97.9 70 18 124/55 (78) 94 Room Air 3.0 97.9 Laboratory Laboratory Laboratory Tests Test 05/27/19 17:03 05/27/19 20:52 05/27/19 21:24 05/27/19 23:41 Glucose (Fingerstick) 120 mg/dL (70-99) 60 mg/dL (70-99) 118 mg/dL (70-99) 131 mg/dL (70-99) Test 05/28/19 00:30 05/28/19 03:50 05/28/19 06:30 05/28/19 07:27 White Blood Count 11.7 x10^3/uL (4.0-11.0) 10.9 x10^3/uL (4.0-11.0) Red Blood Count 2.58 x10^6/uL (4.30-5.70) 2.64 x10^6/uL (4.30-5.70) Hemoglobin 7.2 g/dL (13.0-17.5) 7.6 g/dL (13.0-17.5) Hematocrit 22.0 % (39.0-53.0) 22.7 % (39.0-53.0) Mean Corpuscular Volume 85 fL (79-100) 86 fL (79-100) Mean Corpuscular Hemoglobin 28 pg (25-35) 29 pg (25-35) Mean Corpuscular Hemoglobin Concent 33 g/dL (31-37) 33 g/dL (31-37) Red Cell Distribution Width 20.2 % (11.5-14.5) 19.7 % (11.5-14.5) Platelet Count 159 x10^3/uL (140-400) 156 x10^3/uL (140-400) Neutrophils (%) (Auto) 79 % (31-73) Lymphocytes (%) (Auto) 8 % (24-48) Monocytes (%) (Auto) 10 % (0-9) Eosinophils (%) (Auto) 2 % (0-3) Basophils (%) (Auto) 1 % (0-3) Neutrophils # (Auto) 8.6 x10^3/uL (1.8-7.7) Lymphocytes # (Auto) 0.9 x10^3/uL (1.0-4.8) Monocytes # (Auto) 1.1 x10^3/uL (0.0-1.1) Eosinophils # (Auto) 0.2 x10^3/uL (0.0-0.7) Basophils # (Auto) 0.1 x10^3/uL (0.0-0.2) Prothrombin Time 18.5 SEC (11.7-14.0) Prothromb Time International Ratio 1.6 (0.8-1.1) Sodium Level 132 mmol/L (136-145) Potassium Level 4.6 mmol/L (3.5-5.1) Chloride Level 96 mmol/L (98-107) Carbon Dioxide Level 27 mmol/L (21-32) Anion Gap 9 (6-14) Blood Urea Nitrogen 108 mg/dL (8-26) Creatinine 2.2 mg/dL (0.7-1.3) Estimated GFR (Cockcroft-Gault) 29.1 Glucose Level 166 mg/dL (70-99) Calcium Level 9.0 mg/dL (8.5-10.1) Glucose (Fingerstick) 216 mg/dL (70-99) 208 mg/dL (70-99) Test 05/28/19 11:02 Glucose (Fingerstick) 218 mg/dL (70-99) Microbiology 05/16/19 Blood Culture - Final, Complete NO GROWTH AFTER 5 DAYS Medication Medications Current Medications Alteplase, Recombinant (Cathflo For Central Catheter Clearance) 1 mg 1X ONCE INT CAT Last administered on 05/28/19at 07:21; Start 05/28/19 at 07:00; Stop 05/28/19 at 07:01; Status DC Alteplase, Recombinant 10 mg/ Sodium Chloride 50 ml @ 200 mls/hr 1X ONCE IV ; Start 05/28/19 at 06:45; Stop 05/28/19 at 06:59; Status UNV Warfarin Sodium (Coumadin) 7.5 mg 1X WARF ONCE PO ; Start 05/28/19 at 16:00; Stop 05/28/19 at 16:01; Status DC Comment Review of Relevant I have reviewed the following items nestor (where applicable) has been applied. LUCA MCKEON MD May 28, 2019 16:21
[2019-05-28 19:52] VITALS: BP 131/52
[2019-05-28] MEDS: ATORVASTATIN CALCIUM 10 MG TABLET. PO SCH (21:37)
[2019-05-28] MEDS: traZODone 100 MG TABLET. PO SCH (21:38)
[2019-05-28] MEDS: INSULIN GLARGINE SYRINGE. SQ SCH (21:44)
[2019-05-28 23:26] VITALS: BP 126/55
[2019-05-29] MEDS: AMINO AC 3%/ELECTROLYTE/GLYCER 1,000 ML IV SCH ×2 (03:28→08:30)
[2019-05-29 03:44] VITALS: BP 133/59
[2019-05-29] MEDS: PANTOPRAZOLE 40 MG TABLET.DR. PO SCH (05:10)
[2019-05-29] MEDS: LEVOTHYROXINE 125 MCG TABLET PO SCH (05:10)
[2019-05-29 06:09] LABS: PROTHROMBIN TIME PATIENT 23.8 SEC (11.7-14.0)
--- NOTE | 2019-05-29 07:16 | PDOC ---
PROGRESS NOTES Chief Complaint Chief Complaint DISCHARGE DX Severe sepsis diarrhea HCAP SNU resident Metabolic encephalopathy, improved Hx CVA ckd stage 4-5 Weakness and debility, marked Pleural effusion CHF, stable Obesity, BMI 35 RUE ? cellulitis ABBY on CKD - likely this is vasomotor nephropathy due to poor PO intake Afib Cerebellar infarct - on CT scan, ? age Cardiomyopathy with pacemaker Severe protein calorie malnutrition\ ON PPN dysphagia -on dysphagia 1 diet uncontrolled hypertension 05/24 POOR DENTITION 05/24 marked nausea did not shannan luncH, wretching d/w RN, WILL ORDER KUB R/O ILEUS 05/25 REFUSING TO EAT WILL CONSULT PALLIATIVE CARE 05/26 if eats 50% of lunch and breakfast, will consider d/c later today 05/28 NO INTAKE POOR APPETITE, PAT SAW TODAY 05-29 EATING SOME WILL D/C WITH PALLIATIVE CARE CONSULTED po augmentin MAY BE CAUSE OF NAUSEA CONSIDER PALLIATIVE CARE cbc in am 05/27 hgb 6.5 transfuse 1 unit PRBC'S 33 min pt exam, chart review, D/C PLANNING > 50% of time spent with exam, chart review, pt care coordination History of Present Illness History of Present Illness emesis still SNU resident needs t be fed in SNU HE is bilateral BKA - so wheelchair bound HE is DNR< active med treatment' he is on warf for maybe bed bound issues, bilateral BKA PLAN: adjust insulin today SSI high dose SHIFT pls IV zyvox, zosyn per ID--switched to augmentin per ID DNR WArf per pharmacy goal 2-3 held off sedating meds for now like gabapentin, trazadone, cymbalta etc COnt dysphagia 1 diet dc back to SNF soon Vitals Vitals Vital Signs Date Time Temp Pulse Resp B/P (MAP) Pulse Ox O2 Delivery O2 Flow Rate FiO2 05/29/19 03:44 98.1 70 16 133/59 (83) 92 Room Air 98.1 Physical Exam Physical Exam GENERAL: awake CANNOT TELL ME CORRECT YEAR HEENT: OC/OP- clean NECK: Supple. HEART: S1, S2 with a 2/6 murmur. Pacemaker ABDOMEN: Soft, nontender. No guarding. GENITOURINARY: Garcia in place. EXTREMITIES: Bilateral lower extremity BKAs Mild RUE erythema and dryness SKIN: warm to touch NEUROLOGIC: Nonverbal RIJ clean General: Alert, Cooperative, No acute distress, Other (LETHARGIC) Heart: Regular rate, Normal S1, Normal S2, No murmurs, Gallops Lungs: Clear, Other (decrease left base) Abdomen: Normal bowel sounds, Soft, No tenderness, No hepatosplenomegaly, No masses Extremities: No clubbing, No cyanosis, No edema, Normal pulses, No tendern ess/swelling Skin: No rashes Labs LABS Laboratory Tests Test 05/28/19 07:27 05/28/19 11:02 05/28/19 17:15 05/28/19 20:37 Glucose (Fingerstick) 208 mg/dL (70-99) 218 mg/dL (70-99) 220 mg/dL (70-99) 250 mg/dL (70-99) Test 05/29/19 05:15 Prothrombin Time 23.8 SEC (11.7-14.0) Prothromb Time International Ratio 2.2 (0.8-1.1) Assessment and Plan Assessmemt and Plan Problems Medical Problems: (1) Acute kidney injury superimposed on CKD Status: Acute (2) Acute on chronic combined systolic (congestive) and diastolic (congestive) heart failure Status: Acute (3) Acute respiratory failure Status: Acute (4) Acute respiratory failure with hypoxia Status: Acute (5) ABBY (acute kidney injury) Status: Acute (6) CAD (coronary artery disease) Status: Chronic (7) Chronic a-fib Status: Chronic (8) Chronic kidney disease, stage 4 (severe) Status: Acute (9) CKD (chronic kidney disease), stage III Status: Chronic (10) CVA (cerebral vascular accident) Status: Acute (11) DM2 (diabetes mellitus, type 2) Status: Chronic (12) Dyspnea Status: Acute (13) HCAP (healthcare-associated pneumonia) Status: Acute (14) Metabolic encephalopathy Status: Acute (15) Pleural effusion on left Status: Acute (16) Pleural effusion, left Status: Acute (17) Pulmonary edema Status: Acute (18) Sepsis Status: Acute (19) Severe sepsis Status: Acute Comment Review of Relevant I have reviewed the following items nestor (where applicable) has been applied. Labs Laboratory Tests Test 05/27/19 07:29 05/27/19 08:15 05/27/19 12:20 05/27/19 17:03 Glucose (Fingerstick) 170 mg/dL (70-99) 149 mg/dL (70-99) 120 mg/dL (70-99) Prothrombin Time 17.0 SEC (11.7-14.0) Prothromb Time International Ratio 1.4 (0.8-1.1) Test 05/27/19 20:52 05/27/19 21:24 05/27/19 23:41 05/28/19 00:30 Glucose (Fingerstick) 60 mg/dL (70-99) 118 mg/dL (70-99) 131 mg/dL (70-99) White Blood Count 11.7 x10^3/uL (4.0-11.0) Red Blood Count 2.58 x10^6/uL (4.30-5.70) Hemoglobin 7.2 g/dL (13.0-17.5) Hematocrit 22.0 % (39.0-53.0) Mean Corpuscular Volume 85 fL (79-100) Mean Corpuscular Hemoglobin 28 pg (25-35) Mean Corpuscular Hemoglobin Concent 33 g/dL (31-37) Red Cell Distribution Width 20.2 % (11.5-14.5) Platelet Count 159 x10^3/uL (140-400) Test 05/28/19 03:50 05/28/19 06:30 05/28/19 07:27 05/28/19 11:02 White Blood Count 10.9 x10^3/uL (4.0-11.0) Red Blood Count 2.64 x10^6/uL (4.30-5.70) Hemoglobin 7.6 g/dL (13.0-17.5) Hematocrit 22.7 % (39.0-53.0) Mean Corpuscular Volume 86 fL (79-100) Mean Corpuscular Hemoglobin 29 pg (25-35) Mean Corpuscular Hemoglobin Concent 33 g/dL (31-37) Red Cell Distribution Width 19.7 % (11.5-14.5) Platelet Count 156 x10^3/uL (140-400) Neutrophils (%) (Auto) 79 % (31-73) Lymphocytes (%) (Auto) 8 % (24-48) Monocytes (%) (Auto) 10 % (0-9) Eosinophils (%) (Auto) 2 % (0-3) Basophils (%) (Auto) 1 % (0-3) Neutrophils # (Auto) 8.6 x10^3/uL (1.8-7.7) Lymphocytes # (Auto) 0.9 x10^3/uL (1.0-4.8) Monocytes # (Auto) 1.1 x10^3/uL (0.0-1.1) Eosinophils # (Auto) 0.2 x10^3/uL (0.0-0.7) Basophils # (Auto) 0.1 x10^3/uL (0.0-0.2) Prothrombin Time 18.5 SEC (11.7-14.0) Prothromb Time International Ratio 1.6 (0.8-1.1) Sodium Level 132 mmol/L (136-145) Potassium Level 4.6 mmol/L (3.5-5.1) Chloride Level 96 mmol/L (98-107) Carbon Dioxide Level 27 mmol/L (21-32) Anion Gap 9 (6-14) Blood Urea Nitrogen 108 mg/dL (8-26) Creatinine 2.2 mg/dL (0.7-1.3) Estimated GFR (Cockcroft-Gault) 29.1 Glucose Level 166 mg/dL (70-99) Calcium Level 9.0 mg/dL (8.5-10.1) Glucose (Fingerstick) 216 mg/dL (70-99) 208 mg/dL (70-99) 218 mg/dL (70-99) Test 05/28/19 17:15 05/28/19 20:37 05/29/19 05:15 Glucose (Fingerstick) 220 mg/dL (70-99) 250 mg/dL (70-99) Prothrombin Time 23.8 SEC (11.7-14.0) Prothromb Time International Ratio 2.2 (0.8-1.1) Laboratory Tests Test 05/28/19 07:27 05/28/19 11:02 05/28/19 17:15 05/28/19 20:37 Glucose (Fingerstick) 208 mg/dL (70-99) 218 mg/dL (70-99) 220 mg/dL (70-99) 250 mg/dL (70-99) Test 05/29/19 05:15 Prothrombin Time 23.8 SEC (11.7-14.0) Prothromb Time International Ratio 2.2 (0.8-1.1) Microbiology 05/16/19 Blood Culture - Final, Complete NO GROWTH AFTER 5 DAYS Medications Current Medications Vancomycin HCl (Vanco Per Pharmacy) 1 each PRN DAILY PRN MC SEE COMMENTS Last administered on 05/16/19at 02:12; Start 05/15/19 at 23:00; Stop 05/17/19 at 06:5 2; Status DC Levofloxacin/ Dextrose 150 ml @ 100 mls/hr 1X ONCE IV Last administered on 05/16/19at 00:17; Start 05/15/19 at 23:30; Stop 05/16/19 at 00:59; Status DC Sodium Chloride 1,000 ml @ 1,000 mls/hr 1X ONCE IV ; Start 05/15/19 at 23:30; Stop 05/16/19 at 00:29; Status DC Sodium Chloride 1,000 ml @ 1,000 mls/hr 1X ONCE IV Last administered on 05/16/19at 00:17; Start 05/15/19 at 23:30; Stop 05/16/19 at 00:29; Status DC Sodium Chloride 1,000 ml @ 1,000 mls/hr 1X ONCE IV Last administered on at 00:17; Start 05/15/19 at 23:30; Stop 05/16/19 at 00:29; Status DC Vancomycin HCl 2 gm/Sodium Chloride 500 ml @ 250 mls/hr 1X ONCE IV Last administered on 05/16/19at 00:15; Start 05/16/19 at 00:00; Stop 05/16/19 at 01:59; Status DC Ondansetron HCl (Zofran) 4 mg PRN Q8HRS PRN IV NAUSEA/VOMITING 1ST CHOICE; Start 05/16/19 at 01:45; Stop 05/17/19 at 01:44; Status DC Vancomycin HCl 1.25 gm/Sodium Chloride 250 ml @ 167 mls/hr Q48H IV ; Start 05/18/19 at 00:00; Stop 05/17/19 at 06:52; Status DC Vancomycin HCl (Vancomycin Trough Level) 1 each 1X ONCE MC ; Start 05/19/19 at 23:30; Stop 05/17/19 at 07:19; Status DC Albumin Human 100 ml @ 100 mls/hr 1X ONCE IV Last administered on 05/16/19at 04:14; Start 05/16/19 at 04:30; Stop 05/16/19 at 05:29; Status DC Norepinephrine Bitartrate 250 ml @ 17.031 mls/ hr CONT PRN IV SEE I/O RECORD Last administered on 05/16/19at 04:21; Start 05/16/19 at 04:00; Stop 05/19/19 at 08:36; Status DC Info (FLU VACCINE SCREEN per RX) 1 each 1X ONCE MC ; Start 05/16/19 at 05:00; Stop 05/16/19 at 05:01; Status UNV Albumin Human 250 ml @ 125 mls/hr 1X ONCE IV Last administered on 05/16/19at 05:11; Start 05/16/19 at 05:30; Stop 05/16/19 at 07:29; Status DC Piperacillin Sod/ Tazobactam Sod 2.25 gm/Sodium Chloride 50 ml @ 100 mls/hr Q6HRS IV Last administered on 05/22/19at 06:02; Start 05/16/19 at 13:00; Stop 05/22/19 at 11:04; Status DC Linezolid/Dextrose 300 ml @ 300 mls/hr Q12HR IV Last administered on 05/22/19at 09:01; Start 05/17/19 at 09:00; Stop 05/22/19 at 11:04; Status DC Furosemide (Lasix) 40 mg 1X ONCE IVP Last administered on 05/17/19at 15:47; Start 05/17/19 at 15:45; Stop 05/17/19 at 15:46; Status DC Amino Acids/ Glycerin/ Electrolytes 1,000 ml @ 80 mls/hr [id number] IV Last administered on 05/29/19at 03:28; Start 05/18/19 at 10:00 Aspirin (Ecotrin) 81 mg DAILYWBKFT PO Last administered on 05/28/19at 09:52; Start 05/18/19 at 12:45 Furosemide (Lasix) 40 mg 1X ONCE IVP Last administered on 05/18/19at 15:39; Start 05/18/19 at 15:00; Stop 05/18/19 at 15:01; Status DC Metoprolol Succinate (Toprol Xl) 25 mg DAILY PO Last administered on 05/25/19at 09:08; Start 05/18/19 at 15:00 Insulin Glargine (Lantus Syringe) 12 unit QHS SQ Last administered on 05/20/19at 23:37; Start 05/18/19 at 21:00; Stop 05/21/19 at 09:11; Status DC Insulin Human Lispro (HumaLOG) 0-5 UNITS TIDWMEALS SQ Last administered on 05/20/19at 17:22; Start 05/18/19 at 17:00; Stop 05/21/19 at 09:11; Status DC Dextrose (Dextrose 50%-Water Syringe) 12.5 gm PRN Q15MIN PRN IV SEE COMMENTS; Start 05/18/19 at 17:00; Stop 05/21/19 at 09:12; Status DC Dextrose 250 ml PRN Q15MIN PRN IV SEE COMMENTS; Start 05/18/19 at 17:00; Stop 05/21/19 at 09:12; Status DC Insulin Human Lispro (HumaLOG) 6 units TIDWMEALS SQ Last administered on 05/28/19at 18:45; Start 05/18/19 at 17:00 Buspirone HCl (Buspar) 5 mg BID PO Last administered on 05/28/19at 21:38; Start 05/19/19 at 10:00 Carbidopa/Levodopa (Sinemet Cr) 1 tab.sa TID PO Last administered on 05/28/19at 21:39; Start 05/19/19 at 09:00 Levothyroxine Sodium (Synthroid) 125 mcg DAILY06 PO Last administered on 05/29/19at 05:10; Start 05/19/19 at 10:30 Polyethylene Glycol (miraLAX PACKET) 17 gm BID PO Last administered on 05/28/19 21:39; Start 05/19/19 at 09:00 Sevelamer Carbonate (Renvela) 2,400 mg TIDAC PO Last administered on 05/20/19 09:37; Start 05/19/19 at 11:30; Stop 05/20/19 at 14:10; Status DC Lactobacillus Rhamnosus (Culturelle) 1 cap BID PO Last administered on 05/28/19at 21:37; Start 05/20/19 at 21:00 Insulin Glargine (Lantus Syringe) 15 unit QHS SQ Last administered on 05/28/19 21:44; Start 05/21/19 at 21:00 Insulin Human Lispro (HumaLOG) 0-9 UNITS TIDWMEALS SQ Last administered on 05/28/19at 18:46; Start 05/21/19 at 09:30 Dextrose (Dextrose 50%-Water Syringe) 12.5 gm PRN Q15MIN PRN IV SEE COMMENTS Last administered on 05/27/19at 21:11; Start 05/21/19 at 09:15 Dextrose 250 ml PRN Q15MIN PRN IV SEE COMMENTS; Start 05/21/19 at 09:15 Acetaminophen (Tylenol) 650 mg PRN Q6HRS PRN PO MILD PAIN 1-3 Last administered on 05/28/19at 10:26; Start 05/21/19 at 09:15 Aspirin (Ecotrin) 81 mg DAILY PO ; Start 05/22/19 at 09:00; Status UNV Bisacodyl (Dulcolax Supp) 10 mg PRN DAILY PRN RC CONSTIPATION, 1ST CHOICE RI; Start 05/21/19 at 09:15 Cyanocobalamin (Vitamin B-12) 1,000 mcg DAILY PO Last administered on 05/28/19at 09:52; Start 05/21/19 at 10:00 Glucose (Insta-Glucose) 15 gm PRN DAILY PRN PO Hypoglycemia; Start 05/21/19 at 09:15 Metolazone (Zaroxolyn) 2.5 mg PRN DAILY PRN PO Weight gain/Fluid gain; Start 05/21/19 at 09:15 Metoprolol Succinate (Toprol Xl) 25 mg DAILY PO ; Start 05/22/19 at 09:00; Status UNV Sodium Monofluorophosphate (Fleet Adult) 133 ml PRN DAILY PRN RC CONSTIPATION, 2ND CHOICE RI; Start 05/21/19 at 09:15 Pantoprazole Sodium (Protonix) 40 mg DAILYAC PO Last administered on 05/29/19at 05:10; Start 05/21/19 at 10:00 Potassium Chloride (Klor-Con) 20 meq PRN DAILY PRN PO IF PRN METOLAZONE GIVEN; Start 05/21/19 at 09:15 Senna/Docusate Sodium (Senna Plus) 1 tab BID PO Last administered on 05/28/19 21:38; Start 05/21/19 at 10:00 Simethicone (Gas-X) 80 mg PRN Q6HRS PRN PO HEARTBURN / GAS; Start 05/21/19 at 09:15 Torsemide (Demadex) 100 mg BID92 PO Last administered on 05/25/19 09:08; Start 05/21/19 at 10:00; Stop 05/25/19 at 11:47; Status DC Trazodone HCl (Desyrel) 100 mg QHS PO Last administered on 05/28/19 21:38; Start 05/21/19 at 21:00 Warfarin Sodium (Coumadin) 2 mg DAILY16 PO ; Start 05/21/19 at 16:00; Stop 05/22/19 at 15:45; Status DC Febuxostat (Uloric) 80 mg DAILY PO Last administered on 05/28/19 09:51; Start 05/21/19 at 10:00 Ferrous Sulfate (Feosol) 325 mg DAILYWBKFT PO Last administered on 05/28/19 09:53; Start 05/21/19 at 10:00 Fluticasone Propionate (Flonase) 2 spray DAILY NS Last administered on 05/28/19 09:51; Start 05/21/19 at 10:00 Lactobacillus Rhamnosus (Culturelle) 1 cap DAILY PO ; Start 05/22/19 at 09:00; Status UNV Non-Formulary Medication (Melatonin ) 2 tab QHS PO ; Start 05/21/19 at 21:00; Status UNV Metolazone (Zaroxolyn) 7.5 mg DAILY PO Last administered on 05/23/19 08:57; Start 05/21/19 at 10:00; Stop 05/23/19 at 11:13; Status DC Potassium Chloride (Klor-Con) 40 meq DAILYWBKFT PO Last administered on 05/28/19 09:56; Start 05/21/19 at 10:00 Atorvastatin Calcium (Lipitor) 5 mg QHS PO Last administered on 05/28/19 21:37; Start 05/21/19 at 21:00 Vitamin D (Vitamin D3) 5,000 unit DAILY PO Last administered on 05/28/19 09:52; Start 05/21/19 at 10:00 Warfarin Sodium (Coumadin Per Pharmacy) 1 each PRN DAILY PRN MC SEE COMMENTS Last administered on 05/28/19at 15:37; Start 05/21/19 at 09:15 Ondansetron HCl (Zofran) 4 mg PRN Q6HRS PRN IV NAUSEA/VOMITING Last administered on 05/22/19at 23:05; Start 05/21/19 at 11:00 Amoxicillin/ Clavulanate Potassium (Augmentin 875/ 125mg) 1 tab DAILY PO Last administered on 05/28/19 09:52; Start 05/23/19 at 09:00; Stop 05/28/19 at 15:41 ; Status DC Warfarin Sodium (Coumadin) 5 mg 1X WARF ONCE PO ; Start 05/22/19 at 16:00; Stop 05/22/19 at 16:01; Status DC Warfarin Sodium (Coumadin) 5 mg 1X WARF ONCE PO Last administered on 05/23/19at 17:59; Start 05/23/19 at 17:00; Stop 05/23/19 at 17:01; Status DC Warfarin Sodium (Coumadin) 6 mg 1X WARF ONCE PO Last administered on 05/24/19at 21:16; Start 05/24/19 at 16:00; Stop 05/24/19 at 16:01; Status DC Sodium Chloride 1,000 ml @ 75 mls/hr 1X ONCE IV Last administered on 05/24/19at 14:48; Start 05/24/19 at 13:00; Stop 05/25/19 at 02:19; Status DC Hydralazine HCl (Apresoline Inj) 10 mg PRN Q4HRS PRN IVP ELEVATED BP, SEE COMMENTS; Start 05/24/19 at 14:15 Warfarin Sodium (Coumadin) 7.5 mg 1X WARF ONCE PO Last administered on 05/25/19at 15:27; Start 05/25/19 at 16:00; Stop 05/25/19 at 16:01; Status DC Torsemide (Demadex) 40 mg DAILY PO Last administered on 05/28/19at 09:51; Start 05/26/19 at 09:00 Warfarin Sodium (Coumadin) 7.5 mg 1X WARF ONCE PO Last administered on 05/26/19at 15:30; Start 05/26/19 at 16:00; Stop 05/26/19 at 16:01; Status DC Warfarin Sodium (Coumadin) 7.5 mg 1X WARF ONCE PO Last administered on 04/30 05/17at 16:00; Start 05/27/19 at 16:00; Stop 05/27/19 at 16:01; Status DC Alteplase, Recombinant 10 mg/ Sodium Chloride 50 ml @ 200 mls/hr 1X ONCE IV ; Start 05/28/19 at 06:45; Stop 05/28/19 at 06:59; Status UNV Alteplase, Recombinant (Cathflo For Central Catheter Clearance) 1 mg 1X ONCE INT CAT Last administered on 05/28/19at 07:21; Start 05/28/19 at 07:00; Stop 05/28/19 at 07:01; Status DC Warfarin Sodium (Coumadin) 7.5 mg 1X WARF ONCE PO Last administered on 05/28/19at 18:41; Start 05/28/19 at 16:00; Stop 05/28/19 at 16:01; Status DC Active Scripts Active Novolog Flexpen (Insulin Aspart) 300 Units/3 Ml Insuln.pen 8 Units SQ TIDWMEALS Reported Trazodone Hcl 100 Mg Tablet 1 Tab PO QHS Tramadol Hcl 50 Mg Tablet 50 Mg PO Q8HRS Torsemide 20 Mg Tablet 100 Mg PO BID Temazepam 15 Mg Capsule 1 Cap PO QHS Sinemet Cr 25-100 Tablet (Carbidopa/Levodopa) 1 Each Tablet.er 1 Tab PO TID Simethicone 80 Mg Tab.chew 80 Mg PO PRN Q6HRS PRN Senna Plus 8.6-50 mg Tablet (Sennosides/Docusate Sodium) 1 Each Tablet 1 Each PO BID Renvela (Sevelamer Carbonate) 800 Mg Tablet 3 Tab PO TIDAC Protonix (Pantoprazole Sodium) 40 Mg Tablet.dr 40 Mg PO DAILYAC Pravastatin Sodium 20 Mg Tablet 1 Tab PO HS Potassium Chloride 20 Meq Tablet.er 2 Tab PO DAILY Klor-Con M20 (Potassium Chloride) 20 Meq Tab.er.prt 1 Tab PO PRN DAILY PRN Novolog (Insulin Aspart) 100 Unit/1 Ml Cartridge 8 Unit SQ TIDBFRMEAL NITROGLYCERIN SubLingual (Nitroglycerin) 0.4 Mg Tab.subl 1 Tab SL UD PRN Miralax (Polyethylene Glycol 3350) 17 Gm Powd.pack 1 Packet PO BID Metoprolol Succinate ( Xl ) (Metoprolol Succinate) 25 Mg Tab.er.24h 1 Tab PO DAILY Metolazone 5 Mg Tablet 1.5 Tab PO DAILY Metolazone 2.5 Mg Tablet 2.5 Mg PO PRN DAILY PRN Melatonin 3 Mg Tablet 2 Tab PO QHS Levothyroxine Sodium 125 Mcg Tablet 1 Tab PO DAILY Lantus Solostar (Insulin Glargine,Hum.rec.anlog) 100 Unit/1 Ml Insuln.pen 12 Unit SQ QHS Acidophilus (Lactobacillus Acidophilus) 1 Each Capsule 1 Each PO DAILY Glucose Gel (Dextrose) 38 Gm Gel..gram. 38 Gm PO PRN PRN Gabapentin (Gabapentin) 100 Mg Capsule 100 Mg PO TID Flonase Allergy Relief (Fluticasone Propionate) 9.9 Ml [place].susp 2 Sprays NS DAILY Fleet Enema (Na Phos,M-B/Na Phos,Di-Ba) 133 Ml Enema 133 Ml RC PRN PRN Ferrous Gluconate 240 Mg Tablet 240 Mg PO DAILY Uloric (Febuxostat) 80 Mg Tablet 1 Tab PO DAILY Cymbalta (Duloxetine Hcl) 60 Mg Capsule. 1 Cap PO HS Cymbalta (Duloxetine Hcl) 30 Mg Capsule.dr 1 Cap PO DAILY Vitamin B-12 (Cyanocobalamin (Vitamin B-12)) 1,000 Mcg Tablet 1 Tab PO DAILY Coumadin (Warfarin Sodium) 2 Mg Tablet 1 Tab PO DAILY Vitamin D3 (Cholecalciferol (Vitamin D3)) 5,000 Unit Tablet 1 Tab PO DAILY Buspirone Hcl 5 Mg Tablet 1 Tab PO BID Bisacodyl 10 Mg Supp.rect 10 Mg RC PRN DAILY PRN Tylenol (Acetaminophen) 325 Mg Tablet 2 Tab PO PRN Q6HRS PRN Sertraline Hcl 100 Mg Tablet 100 Mg PO DAILY Aspir 81 (Aspirin) 81 Mg Tablet. 1 Tab PO DAILY Vitals/I & O Vital Sign - Last 24 Hours 05/28/19 05/28/19 05/28/19 05/28/19 07:57 08:00 09:00 11:39 Temp 97.4 97.9 97.4 97.9 Pulse 70 72 76 Resp 20 18 B/P (MAP) 120/48 (72) 122/58 128/54 (78) Pulse Ox 92 94 O2 Delivery Room Air Room Air Room Air 05/28/19 05/28/19 05/28/19 05/28/19 15:44 19:52 20:00 23:26 Temp 97.4 98.2 98.1 97.4 98.2 98.1 Pulse 72 69 70 Resp 18 16 16 B/P (MAP) 122/58 (79) 131/52 (78) 126/55 (78) Pulse Ox 96 94 94 O2 Delivery Room Air Room Air Room Air Room Air 05/29/19 03:44 Temp 98.1 98.1 Pulse 70 Resp 16 B/P (MAP) 133/59 (83) Pulse Ox 92 O2 Delivery Room Air Intake and Output 05/28/19 05/28/19 05/29/19 15:00 23:00 07:00 Intake Total 720 ml Output Total 650 ml 300 ml Balance 70 ml -300 ml SCOTT VASQUEZ MD May 29, 2019 07:16
[2019-05-29 07:20] VITALS: BP 138/56
--- NOTE | 2019-05-29 07:41 | RAD ---
Examination: CT HEAD WO CONTRAST History: Altered mental status Comparison/Correlation: 05/17/2019 CT head without contrast Findings: Atrophy is present. Chronic ischemic changes of the white matter identified. No intracranial hemorrhage, midline shift, or mass effect. Small old right cerebellar infarct is again seen similar to the prior exam. Bony structures are unremarkable. Fluid level within the left maxillary sinus is noted. Mucosal thickening of the left maxillary sinus is evident. Minimal chronic ethmoid sinusitis is noted. Globes and optic nerves are unremarkable. Bony structures are intact. Impression: No intracranial hemorrhage. Old right cerebellar infarct. Paranasal sinusitis. PQRS Compliance Statement: One or more of the following individualized dose reduction techniques were utilized for this examination: 1. Automated exposure control 2. Adjustment of the mA and/or kV according to patient size 3. Use of iterative reconstruction technique Electronically signed by: Sergei Faria MD (05/29/2019 7:38 AM) [facility]
[2019-05-29] MEDS: METOPROLOL SUCC 24HR ER 25 MG TAB.ER.24H. PO SCH (09:00)
[2019-05-29] MEDS: POLYETHYLENE GLYCOL 3350 17 GM PACKET. PO SCH (09:00)
[2019-05-29] MEDS ORDERED: FLU VAX QS 2019-20 (36MOS+)/PF 0.5 ML SYRINGE. VAX IM ONE (09:30)
[2019-05-29] MEDS: FLUTICASONE 50MCG/NASAL SPRAY 16GM BOTTLE. NS SCH (09:50)
[2019-05-29] MEDS: CYANOCOBALAMIN (VITAMIN B-12) 1,000 MCG TABLET. PO SCH (09:53)
[2019-05-29] MEDS: CHOLECALCIFEROL (VITAMIN D3) 5,000 UNIT CAPSULE PO SCH (09:53)
[2019-05-29] MEDS: ASPIRIN ENTERIC COATED 81 MG TABLET.DR. PO SCH (09:54)
[2019-05-29] MEDS: SENNOSIDES/DOCUSATE 8.6/50MG TABLET. PO SCH (09:57)
[2019-05-29] MEDS: TORSEMIDE 20 MG TABLET. PO SCH (09:57)
[2019-05-29] MEDS: POTASSIUM CHLORIDE 20 MEQ TABLET.ER. PO SCH (09:58)
[2019-05-29] MEDS: FEBUXOSTAT 40 MG TABLET PO SCH (09:58)
[2019-05-29] MEDS: LACTOBACILLUS RHAMNOSUS GG 1 CAPSULE. PO SCH (09:59)
[2019-05-29] MEDS: CARBIDOPA/LEVODOPA CR 25/100MG TABLET.SA. PO SCH (10:00)
[2019-05-29] MEDS: busPIRone 5 MG TABLET. PO SCH (10:00)
[2019-05-29] MEDS: FERROUS SULFATE 325 MG TABLET. PO SCH (10:00)
[2019-05-29] MEDS: INSULIN LISPRO 300 UNITS/3 ML VIAL. SQ SCH ×4 (10:15→12:34)
[2019-05-29 11:02] VITALS: BP 127/42
--- NOTE | 2019-05-29 11:11 | PDOC ---
SUBJECTIVE ROS Stable, OBJECTIVE Vital Signs Vital Signs Date Time Temp Pulse Resp B/P (MAP) Pulse Ox O2 Delivery O2 Flow Rate FiO2 05/29/19 09:00 69 138/56 05/29/19 08:00 Room Air 3.0 05/29/19 07:20 97.3 16 95 97.3 I & 0 Intake and Output 05/29/19 06:59 Intake Total 720 ml Output Total 950 ml Balance -230 ml Intake Oral 720 ml Output Urine Total 950 ml PHYSICAL EXAM Physical Exam GENERAL: NAD HEEN-OM moist NECK: Supple. HEART: S1, S2 with a 2/6 murmur. Pacemaker without signs of complications. ABDOMEN: Soft, nontender. GENITOURINARY: Has a Garcia in place. EXTREMITIES: Bilateral lower extremity BKAs, No edema SKIN: No rash NEUROLOGIC: Recent Stroke, DIAGNOSIS/ASSESSMENT Assessment & Plan CKD STAGE 3- at least since 2011, no prior labs Saw Dr. Jolly in 2016 -Baseline Cr 1.5-2.2 (in 2017) no interval labs ABBY - ATN suspect sec to Sepsis/ Hypotension later Overdiuresed UA and Renal US unremarkable , UOP adquate, stable Stable renal function , No labs this am Metolazone dced and Demadex decreased ro 40 mg QD last week Lt pleural effusion - per card/Pulm Metabolic encephalopathy: Hx of CVA p Neurology following. 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% ICM s/o AICD/CRTD , paced rhythm with underlying afib CAD s/p CABG 03/06 Chronic AFIB Diabetes, II Anemia of chronic disease- stable COMMENT/RELEVANT DATA Meds Current Medications Medications (Trade) Dose Ordered Sig/Adithya Start Time Stop Time Status Last Admin Dose Admin Acetaminophen (Tylenol) 650 mg PRN Q6HRS PRN 05/21/19 09:15 05/28/19 10:26 650 MG Albumin Human 250 ml @ 125 mls/hr 1X ONCE 05/16/19 05:30 05/16/19 07:29 DC 05/16/19 05:11 125 MLS/HR Alteplase, Recombinant (Cathflo For Central Catheter Clearance) 1 mg 1X ONCE 05/28/19 07:00 05/28/19 07:01 DC 05/28/19 07:21 1 MG Alteplase, Recombinant 10 mg/ Sodium Chloride 50 ml @ 200 mls/hr 1X ONCE 05/28/19 06:45 05/28/19 06:59 UNV Amino Acids/ Glycerin/ Electrolytes 1,000 ml @ 80 mls/hr [id number] 05/18/19 10:00 05/29/19 03:28 80 MLS/HR Amoxicillin/ Clavulanate Potassium (Augmentin 875/ 125mg) 1 tab DAILY 05/23/19 09:00 05/28/19 15:41 DC 05/28/19 09:52 1 TAB Aspirin (Ecotrin) 81 mg DAILY 05/22/19 09:00 UNV Atorvastatin Calcium (Lipitor) 5 mg QHS 05/21/19 21:00 05/28/19 21:37 5 MG Bisacodyl (Dulcolax Supp) 10 mg PRN DAILY PRN 05/21/19 09:15 Buspirone HCl (Buspar) 5 mg BID 05/19/19 10:00 05/29/19 10:00 5 MG Carbidopa/Levodopa (Sinemet Cr) 1 tab.sa TID 05/19/19 09:00 05/29/19 10:00 1 TAB.SA Cyanocobalamin (Vitamin B-12) 1,000 mcg DAILY 05/21/19 10:00 05/29/19 09:53 1,000 MCG Dextrose 250 ml PRN Q15MIN PRN 05/21/19 09:15 Dextrose (Dextrose 50%-Water Syringe) 12.5 gm PRN Q15MIN PRN 05/21/19 09:15 05/27/19 21:11 12.5 GM Febuxostat (Uloric) 80 mg DAILY 05/21/19 10:00 05/29/19 09:58 80 MG Ferrous Sulfate (Feosol) 325 mg DAILYWBKFT 05/21/19 10:00 05/29/19 10:00 325 MG Fluticasone Propionate (Flonase) 2 spray DAILY 05/21/19 10:00 05/29/19 09:50 2 SPRAY Furosemide (Lasix) 40 mg 1X ONCE 05/18/19 15:00 05/18/19 15:01 DC 05/18/19 15:39 40 MG Glucose (Insta-Glucose) 15 gm PRN DAILY PRN 05/21/19 09:15 Hydralazine HCl (Apresoline Inj) 10 mg PRN Q4HRS PRN 05/24/19 14:15 Influenza Virus Vaccine Quadrival (Afluria Quad 2019-20 (3yr Up) Syringe) 0.5 ml ONCE ONCE 05/29/19 09:30 05/29/19 09:31 DC 05/29/19 09:30 0.5 ML Info (FLU VACCINE SCREEN per RX) 1 each 1X ONCE 05/16/19 05:00 05/16/19 05:01 UNV Insulin Glargine (Lantus Syringe) 15 unit QHS 05/21/19 21:00 05/28/19 21:44 15 UNIT Insulin Human Lispro (HumaLOG) 0-9 UNITS TIDWMEALS 05/21/19 09:30 05/29/19 10:16 5 UNITS Lactobacillus Rhamnosus (Culturelle) 1 cap DAILY 05/22/19 09:00 UNV Levofloxacin/ Dextrose 150 ml @ 100 mls/hr 1X ONCE 05/15/19 23:30 05/16/19 00:59 DC 05/16/19 00:17 100 MLS/HR Levothyroxine Sodium (Synthroid) 125 mcg DAILY06 05/19/19 10:30 05/29/19 05:10 125 MCG Linezolid/Dextrose 300 ml @ 300 mls/hr Q12HR 05/17/19 09:00 05/22/19 11:04 DC 05/22/19 09:01 300 MLS/HR Metolazone (Zaroxolyn) 7.5 mg DAILY 05/21/19 10:00 05/23/19 11:13 DC 05/23/19 08:57 7.5 MG Metoprolol Succinate (Toprol Xl) 25 mg DAILY 05/22/19 09:00 UNV Non-Formulary Medication (Melatonin ) 2 tab QHS 05/21/19 21:00 UNV Norepinephrine Bitartrate 250 ml @ 17.031 mls/ hr CONT PRN 05/16/19 04:00 05/19/19 08:36 DC 05/16/19 04:21 3.406 MLS/HR Ondansetron HCl (Zofran) 4 mg PRN Q6HRS PRN 05/21/19 11:00 05/22/19 23:05 4 MG Pantoprazole Sodium (Protonix) 40 mg DAILYAC 05/21/19 10:00 05/29/19 05:10 40 MG Piperacillin Sod/ Tazobactam Sod 2.25 gm/Sodium Chloride 50 ml @ 100 mls/hr Q6HRS 05/16/19 13:00 05/22/19 11:04 DC 05/22/19 06:02 100 MLS/HR Polyethylene Glycol (miraLAX PACKET) 17 gm BID 05/19/19 09:00 05/28/19 21:39 17 GM Potassium Chloride (Klor-Con) 40 meq DAILYWBKFT 05/21/19 10:00 05/29/19 09:58 40 MEQ Senna/Docusate Sodium (Senna Plus) 1 tab BID 05/21/19 10:00 05/29/19 09:57 1 TAB Sevelamer Carbonate (Renvela) 2,400 mg TIDAC 05/19/19 11:30 05/20/19 14:10 DC 05/20/19 09:37 2,400 MG Simethicone (Gas-X) 80 mg PRN Q6HRS PRN 05/21/19 09:15 Sodium Monofluorophosphate (Fleet Adult) 133 ml PRN DAILY PRN 05/21/19 09:15 Sodium Chloride 1,000 ml @ 75 mls/hr 1X ONCE 05/24/19 13:00 05/25/19 02:19 DC 05/24/19 14:48 75 MLS/HR Torsemide (Demadex) 40 mg DAILY 05/26/19 09:00 05/29/19 09:57 40 MG Trazodone HCl (Desyrel) 100 mg QHS 05/21/19 21:00 05/28/19 21:38 100 MG Vancomycin HCl (Vanco Per Pharmacy) 1 each PRN DAILY PRN 05/15/19 23:00 05/17/19 06:52 DC 05/16/19 02:12 1 EACH Vancomycin HCl (Vancomycin Trough Level) 1 each 1X ONCE 05/19/19 23:30 05/17/19 07:19 DC Vancomycin HCl 1.25 gm/Sodium Chloride 250 ml @ 167 mls/hr Q48H 05/18/19 00:00 05/17/19 06:52 DC Vancomycin HCl 2 gm/Sodium Chloride 500 ml @ 250 mls/hr 1X ONCE 05/16/19 00:00 05/16/19 01:59 DC 05/16/19 00:15 250 MLS/HR Vitamin D (Vitamin D3) 5,000 unit DAILY 05/21/19 10:00 05/29/19 09:53 5,000 UNIT Warfarin Sodium (Coumadin Per Pharmacy) 1 each PRN DAILY PRN 05/21/19 09:15 05/28/19 15:37 1 EACH Warfarin Sodium (Coumadin) 7.5 mg 1X WARF ONCE 05/28/19 16:00 05/28/19 16:01 DC 05/28/19 18:41 7.5 MG Lab Laboratory Tests Test 05/28/19 17:15 05/28/19 20:37 05/29/19 05:15 05/29/19 07:23 Glucose (Fingerstick) 220 mg/dL (70-99) 250 mg/dL (70-99) 324 mg/dL (70-99) Prothrombin Time 23.8 SEC (11.7-14.0) Prothromb Time International Ratio 2.2 (0.8-1.1) Results All relevant outside records, renal labs, imaging studies, telemetry/EKG's were reviewed. ANTHONY ORDAZ MD May 29, 2019 11:11
--- NOTE | 2019-05-29 11:16 | PDOC ---
Subjective: Subjective: Says he's okay and that he ate some breakfast. Objective: Objective: Reviewed PC note - no DPOA, friends considering. Vital Signs: Vital Signs Date Time Temp Pulse Resp B/P (MAP) Pulse Ox O2 Delivery O2 Flow Rate FiO2 05/29/19 09:00 69 138/56 05/29/19 08:00 Room Air 3.0 05/29/19 07:20 97.3 16 95 97.3 Labs: Laboratory Tests Test 05/28/19 17:15 05/28/19 20:37 05/29/19 05:15 05/29/19 07:23 Glucose (Fingerstick) 220 mg/dL 250 mg/dL 324 mg/dL Prothrombin Time 23.8 SEC Prothromb Time International Ratio 2.2 Imaging: Head CT 05/28 No intracranial hemorrhage. Old right cerebellar infarct. Paranasal sinusitis. PE: GEN: NAD LUNGS: CTAB HEART: RRR ABD: S/ND/NT NEURO/PSYCH: a little brighter today, still probably confused A/P: Poor appetite Anemia - Hgb checked yesterday CKD Anti-coagulated w/ Warfarin -- Eating some? Continue support, PPI. NIKOLAY PROCTOR May 29, 2019 11:16
--- NOTE | 2019-05-29 11:36 | PDOC3 ---
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 cellulitis ABBY on CKD - likely this is vasomotor nephropathy due to poor PO intake Afib Cerebellar infarct - on CT scan, ? age Cardiomyopathy with pacemaker Severe protein calorie malnutrition\ ON PPN dysphagia -on dysphagia 1 diet uncontrolled hypertension 05/24 POOR DENTITION 05/24 marked nausea did not shannan luncH, wretching d/w RN, WILL ORDER KUB R/O ILEUS 05/25 REFUSING TO EAT WILL CONSULT PALLIATIVE CARE 05/26 if eats 50% of lunch and breakfast, will consider d/c later today 05/28 NO INTAKE POOR APPETITE, PAT SAW TODAY 05-29 EATING SOME WILL D/C WITH PALLIATIVE CARE CONSULTED po augmentin MAY BE CAUSE OF NAUSEA CONSIDER PALLIATIVE CARE cbc in am 05/27 hgb 6.5 transfuse 1 unit PRBC'S 33 min pt exam, chart review, D/C PLANNING > 50% of time spent with exam, chart review, pt care coordination History of Present Illness History of Present Illness emesis still SNU resident needs t be fed in SNU HE is bilateral BKA - so wheelchair bound HE is DNR< active med treatment' he is on warf for maybe bed bound issues, bilateral BKA PLAN: adjust insulin today SSI high dose SHIFT pls IV zyvox, zosyn per ID--switched to augmentin per ID DNR WArf per pharmacy goal 2-3 held off sedating meds for now like gabapentin, trazadone, cymbalta etc COnt dysphagia 1 diet dc back to SNF soon Vitals Vitals Vital Signs Date Time Temp Pulse Resp B/P (MAP) Pulse Ox O2 Delivery O2 Flow Rate FiO2 05/29/19 03:44 98.1 70 16 133/59 (83) 92 Room Air 98.1 Physical Exam Physical Exam GENERAL: awake CANNOT TELL ME CORRECT YEAR HEENT: OC/OP- clean NECK: Supple. HEART: S1, S2 with a 2/6 murmur. Pacemaker ABDOMEN: Soft, nontender. No guarding. GENITOURINARY: Garcia in place. EXTREMITIES: Bilateral lower extremity BKAs Mild RUE erythema and dryness SKIN: warm to touch NEUROLOGIC: Nonverbal RIJ clean General: Alert, Cooperative, No acute distress, Other (LETHARGIC) Heart: Regular rate, Normal S1, Normal S2, No murmurs, Gallops Lungs: Clear, Other (decrease left base) Abdomen: Normal bowel sounds, Soft, No tenderness, No hepatosplenomegaly, No masses Extremities: No clubbing, No cyanosis, No edema, Normal pulses, No tenderness/swelling Skin: No rashes FINAL DIAGNOSIS Problems Medical Problems: (1) Acute kidney injury superimposed on CKD Status: Acute (2) Acute on chronic combined systolic (congestive) and diastolic (congestive) heart failure Status: Acute (3) Acute respiratory failure Status: Acute (4) Acute respiratory failure with hypoxia Status: Acute (5) ABBY (acute kidney injury) Status: Acute (6) CAD (coronary artery disease) Status: Chronic (7) Chronic a-fib Status: Chronic (8) Chronic kidney disease, stage 4 (severe) Status: Acute (9) CKD (chronic kidney disease), stage III Status: Chronic (10) CVA (cerebral vascular accident) Status: Acute (11) DM2 (diabetes mellitus, type 2) Status: Chronic (12) Dyspnea Status: Acute (13) HCAP (healthcare-associated pneumonia) Status: Acute (14) Metabolic encephalopathy Status: Acute (15) Pleural effusion on left Status: Acute (16) Pleural effusion, left Status: Acute (17) Pulmonary edema Status: Acute (18) Sepsis Status: Acute (19) Severe sepsis Status: Acute Brief Hospital Course Mr. Londono is a 78 old [sex] who presented with [SEVERE SEPSIS ] CONDITION AT DISCHARGE: Comment (POOR PROGNOSIS) Discharge Medications Current Medications Vancomycin HCl (Vanco Per Pharmacy) 1 each PRN DAILY PRN MC SEE COMMENTS Last administered on 05/16/19at 02:12; Start 05/15/19 at 23:00; Stop 05/17/19 at 06:52; Status DC Levofloxacin/ Dextrose 150 ml @ 100 mls/hr 1X ONCE IV Last administered on 05/16/19at 00:17; Start 05/15/19 at 23:30; Stop 05/16/19 at 00:59; Status DC Sodium Chloride 1,000 ml @ 1,000 mls/hr 1X ONCE IV ; Start 05/15/19 at 23:30; Stop 05/16/19 at 00:29; Status DC Sodium Chloride 1,000 ml @ 1,000 mls/hr 1X ONCE IV Last administered on 05/16/19at 00:17; Start 05/15/19 at 23:30; Stop 05/16/19 at 00:29; Status DC Sodium Chloride 1,000 ml @ 1,000 mls/hr 1X ONCE IV Last administered on 05/16/19at 00:17; Start 05/15/19 at 23:30; Stop 05/16/19 at 00:29; Status DC Vancomycin HCl 2 gm/Sodium Chloride 500 ml @ 250 mls/hr 1X ONCE IV Last administered on 05/16/19at 00:15; Start 05/16/19 at 00:00; Stop 05/16/19 at 01:59; Status DC Ondansetron HCl (Zofran) 4 mg PRN Q8HRS PRN IV NAUSEA/VOMITING 1ST CHOICE; Start 05/16/19 at 01:45; Stop 05/17/19 at 01:44; Status DC Vancomycin HCl 1.25 gm/Sodium Chloride 250 ml @ 167 mls/hr Q48H IV ; Start 05/18/19 at 00:00; Stop 05/17/19 at 06:52; Status DC Vancomycin HCl (Vancomycin Trough Level) 1 each 1X ONCE MC ; Start 05/19/19 at 23:30; Stop 05/17/19 at 07:19; Status DC Albumin Human 100 ml @ 100 mls/hr 1X ONCE IV Last administered on 05/16/19at 04:14; Start 05/16/19 at 04:30; Stop 05/16/19 at 05:29; Status DC Norepinephrine Bitartrate 250 ml @ 17.031 mls/ hr CONT PRN IV SEE I/O RECORD Last administered on 05/16/19at 04:21; Start 05/16/19 at 04:00; Stop 05/19/19 at 08:36; Status DC Info (FLU VACCINE SCREEN per RX) 1 each 1X ONCE MC ; Start 05/16/19 at 05:00; Stop 05/16/19 at 05:01; Status UNV Albumin Human 250 ml @ 125 mls/hr 1X ONCE IV Last administered on 05/16/19at 05:11; Start 05/16/19 at 05:30; Stop 05/16/19 at 07:29; Status DC Piperacillin Sod/ Tazobactam Sod 2.25 gm/Sodium Chloride 50 ml @ 100 mls/hr Q6HRS IV Last administered on 05/22/19at 06:02; Start 05/16/19 at 13:00; Stop 05/22/19 at 11:04; Status DC Linezolid/Dextrose 300 ml @ 300 mls/hr Q12HR IV Last administered on 05/22/19at 09:01; Start 05/17/19 at 09:00; Stop 05/22/19 at 11:04; Status DC Furosemide (Lasix) 40 mg 1X ONCE IVP Last administered on 05/17/19at 15:47; Start 05/17/19 at 15:45; Stop 05/17/19 at 15:46; Status DC Amino Acids/ Glycerin/ Electrolytes 1,000 ml @ 80 mls/hr [id number] IV Last administered on 05/29/19at 03:28; Start 05/18/19 at 10:00 Aspirin (Ecotrin) 81 mg DAILYWBKFT PO Last administered on 05/29/19at 09:54; Start 05/18/19 at 12:45 Furosemide (Lasix) 40 mg 1X ONCE IVP Last administered on 05/18/19at 15:39; S tart 05/18/19 at 15:00; Stop 05/18/19 at 15:01; Status DC Metoprolol Succinate (Toprol Xl) 25 mg DAILY PO Last administered on 05/25/19at 09:08; Start 05/18/19 at 15:00 Insulin Glargine (Lantus Syringe) 12 unit QHS SQ Last administered on 05/20/19at 23:37; Start 05/18/19 at 21:00; Stop 05/21/19 at 09:11; Status DC Insulin Human Lispro (HumaLOG) 0-5 UNITS TIDWMEALS SQ Last administered on 05/20/19at 17:22; Start 05/18/19 at 17:00; Stop 05/21/19 at 09:11; Status DC Dextrose (Dextrose 50%-Water Syringe) 12.5 gm PRN Q15MIN PRN IV SEE COMMENTS; Start 05/18/19 at 17:00; Stop 05/21/19 at 09:12; Status DC Dextrose 250 ml PRN Q15MIN PRN IV SEE COMMENTS; Start 05/18/19 at 17:00; Stop 05/21/19 at 09:12; Status DC Insulin Human Lispro (HumaLOG) 6 units TIDWMEALS SQ Last administered on 05/29/19at 10:15; Start 05/18/19 at 17:00 Buspirone HCl (Buspar) 5 mg BID PO Last administered on 05/29/19at 10:00; Start 05/19/19 at 10:00 Carbidopa/Levodopa (Sinemet Cr) 1 tab.sa TID PO Last administered on 05/29/19 10:00; Start 05/19/19 at 09:00 Levothyroxine Sodium (Synthroid) 125 mcg DAILY06 PO Last administered on 05/29/19 05:10; Start 05/19/19 at 10:30 Polyethylene Glycol (miraLAX PACKET) 17 gm BID PO Last administered on 05/28/19 21:39; Start 05/19/19 at 09:00 Sevelamer Carbonate (Renvela) 2,400 mg TIDAC PO Last administered on 05/20/19at 09:37; Start 05/19/19 at 11:30; Stop 05/20/19 at 14:10; Status DC Lactobacillus Rhamnosus (Culturelle) 1 cap BID PO Last administered on 05/29/19 09:59; Start 05/20/19 at 21:00 Insulin Glargine (Lantus Syringe) 15 unit QHS SQ Last administered on 05/28/19at 21:44; Start 05/21/19 at 21:00 Insulin Human Lispro (HumaLOG) 0-9 UNITS TIDWMEALS SQ Last administered on 05/29/19at 10:16; Start 05/21/19 at 09:30 Dextrose (Dextrose 50%-Water Syringe) 12.5 gm PRN Q15MIN PRN IV SEE COMMENTS Last administered on 05/27/19at 21:11; Start 05/21/19 at 09:15 Dextrose 250 ml PRN Q15MIN PRN IV SEE COMMENTS; Start 05/21/19 at 09:15 Acetaminophen (Tylenol) 650 mg PRN Q6HRS PRN PO MILD PAIN 1-3 Last administered on 05/28/19at 10:26; Start 05/21/19 at 09:15 Aspirin (Ecotrin) 81 mg DAILY PO ; Start 05/22/19 at 09:00; Status UNV Bisacodyl (Dulcolax Supp) 10 mg PRN DAILY PRN RC CONSTIPATION, 1ST CHOICE VT; Start 05/21/19 at 09:15 Cyanocobalamin (Vitamin B-12) 1,000 mcg DAILY PO Last administered on 05/29/19at 09:53; Start 05/21/19 at 10:00 Glucose (Insta-Glucose) 15 gm PRN DAILY PRN PO Hypoglycemia; Start 05/21/19 at 09:15 Metolazone (Zaroxolyn) 2.5 mg PRN DAILY PRN PO Weight gain/Fluid gain; Start 05/21/19 at 09:15 Metoprolol Succinate (Toprol Xl) 25 mg DAILY PO ; Start 05/22/19 at 09:00; Status UNV Sodium Monofluorophosphate (Fleet Adult) 133 ml PRN DAILY PRN RC CONSTIPATION, 2ND CHOICE VT; Start 05/21/19 at 09:15 Pantoprazole Sodium (Protonix) 40 mg DAILYAC PO Last administered on 05/29/19at 05:10; Start 05/21/19 at 10:00 Potassium Chloride (Klor-Con) 20 meq PRN DAILY PRN PO IF PRN METOLAZONE GIVEN; Start 05/21/19 at 09:15 Senna/Docusate Sodium (Senna Plus) 1 tab BID PO Last administered on 05/29/19at 09:57; Start 05/21/19 at 10:00 Simethicone (Gas-X) 80 mg PRN Q6HRS PRN PO HEARTBURN / GAS; Start 05/21/19 at 09:15 Torsemide (Demadex) 100 mg BID92 PO Last administered on 05/25/19at 09:08; Start 05/21/19 at 10:00; Stop 05/25/19 at 11:47; Status DC Trazodone HCl (Desyrel) 100 mg QHS PO Last administered on 05/28/19at 21:38; Start 05/21/19 at 21:00 Warfarin Sodium (Coumadin) 2 mg DAILY16 PO ; Start 05/21/19 at 16:00; Stop 05/22/19 at 15:45; Status DC Febuxostat (Uloric) 80 mg DAILY PO Last administered on 05/29/19 09:58; Start 05/21/19 at 10:00 Ferrous Sulfate (Feosol) 325 mg DAILYWBKFT PO Last administered on 05/29/19at 10:00; Start 05/21/19 at 10:00 Fluticasone Propionate (Flonase) 2 spray DAILY NS Last administered on 05/29/19 09:50; Start 05/21/19 at 10:00 Lactobacillus Rhamnosus (Culturelle) 1 cap DAILY PO ; Start 05/22/19 at 09:00; Status UNV Non-Formulary Medication (Melatonin ) 2 tab QHS PO ; Start 05/21/19 at 21:00; Status UNV Metolazone (Zaroxolyn) 7.5 mg DAILY PO Last administered on 05/23/19 08:57; Start 05/21/19 at 10:00; Stop 05/23/19 at 11:13; Status DC Potassium Chloride (Klor-Con) 40 meq DAILYWBKFT PO Last administered on 05/29/19 09:58; Start 05/21/19 at 10:00 Atorvastatin Calcium (Lipitor) 5 mg QHS PO Last administered on 05/28/19 21:37; Start 05/21/19 at 21:00 Vitamin D (Vitamin D3) 5,000 unit DAILY PO Last administered on 05/29/19 09:53; Start 05/21/19 at 10:00 Warfarin Sodium (Coumadin Per Pharmacy) 1 each PRN DAILY PRN MC SEE COMMENTS Last administered on 05/28/19at 15:37; Start 05/21/19 at 09:15 Ondansetron HCl (Zofran) 4 mg PRN Q6HRS PRN IV NAUSEA/VOMITING Last administered on 05/22/19 23:05; Start 05/21/19 at 11:00 Amoxicillin/ Clavulanate Potassium (Augmentin 875/ 125mg) 1 tab DAILY PO Last administered on 05/28/19 09:52; Start 05/23/19 at 09:00; Stop 05/28/19 at 15:41; Status DC Warfarin Sodium (Coumadin) 5 mg 1X WARF ONCE PO ; Start 05/22/19 at 16:00; Stop 05/22/19 at 16:01; Status DC Warfarin Sodium (Coumadin) 5 mg 1X WARF ONCE PO Last administered on 05/23/19at 17:59; Start 05/23/19 at 17:00; Stop 05/23/19 at 17:01; Status DC Warfarin Sodium (Coumadin) 6 mg 1X WARF ONCE PO Last administered on 05/24/19at 21:16; Start 05/24/19 at 16:00; Stop 05/24/19 at 16:01; Status DC Sodium Chloride 1,000 ml @ 75 mls/hr 1X ONCE IV Last administered on 05/24/19at 14:48; Start 05/24/19 at 13:00; Stop 05/25/19 at 02:19; Status DC Hydralazine HCl (Apresoline Inj) 10 mg PRN Q4HRS PRN IVP ELEVATED BP, SEE COMMENTS; Start 05/24/19 at 14:15 Warfarin Sodium (Coumadin) 7.5 mg 1X WARF ONCE PO Last administered on 05/25/19at 15:27; Start 05/25/19 at 16:00; Stop 05/25/19 at 16:01; Status DC Torsemide (Demadex) 40 mg DAILY PO Last administered on 05/29/19at 09:57; Start 05/26/19 at 09:00 Warfarin Sodium (Coumadin) 7.5 mg 1X WARF ONCE PO Last administered on 05/26/19at 15:30; Start 05/26/19 at 16:00; Stop 05/26/19 at 16:01; Status DC Warfarin Sodium (Coumadin) 7.5 mg 1X WARF ONCE PO Last administered on 05/27/19at 16:00; Start 05/27/19 at 16:00; Stop 05/27/19 at 16:01; Status DC Alteplase, Recombinant 10 mg/ Sodium Chloride 50 ml @ 200 mls/hr 1X ONCE IV ; Start 05/28/19 at 06:45; Stop 05/28/19 at 06:59; Status UNV Alteplase, Recombinant (Cathflo For Central Catheter Clearance) 1 mg 1X ONCE INT CAT Last administered on 05/28/19at 07:21; Start 05/28/19 at 07:00; Stop 05/28/19 at 07:01; Status DC Warfarin Sodium (Coumadin) 7.5 mg 1X WARF ONCE PO Last administered on 05/28/19at 18:41; Start 05/28/19 at 16:00; Stop 05/28/19 at 16:01; Status DC Influenza Virus Vaccine Quadrival (Afluria Quad 2019-20 (3yr Up) Syringe) 0.5 ml ONCE ONCE VAX IM Last administered on 05/29/19at 09:30; Start 05/29/19 at 09:30; Stop 05/29/19 at 09:31; Status DC Active Scripts Active Novolog Flexpen (Insulin Aspart) 300 Units/3 Ml Insuln.pen 8 Units SQ TIDWMEALS Reported Trazodone Hcl 100 Mg Tablet 1 Tab PO QHS Tramadol Hcl 50 Mg Tablet 50 Mg PO Q8HRS Torsemide 20 Mg Tablet 100 Mg PO BID Temazepam 15 Mg Capsule 1 Cap PO QHS Sinemet Cr 25-100 Tablet (Carbidopa/Levodopa) 1 Each Tablet.er 1 Tab PO TID Simethicone 80 Mg Tab.chew 80 Mg PO PRN Q6HRS PRN Senna Plus 8.6-50 mg Tablet (Sennosides/Docusate Sodium) 1 Each Tablet 1 Each PO BID Renvela (Sevelamer Carbonate) 800 Mg Tablet 3 Tab PO TIDAC Protonix (Pantoprazole Sodium) 40 Mg Tablet.dr 40 Mg PO DAILYAC Pravastatin Sodium 20 Mg Tablet 1 Tab PO HS Potassium Chloride 20 Meq Tablet.er 2 Tab PO DAILY Klor-Con M20 (Potassium Chloride) 20 Meq Tab.er.prt 1 Tab PO PRN DAILY PRN Novolog (Insulin Aspart) 100 Unit/1 Ml Cartridge 8 Unit SQ TIDBFRMEAL NITROGLYCERIN SubLingual (Nitroglycerin) 0.4 Mg Tab.subl 1 Tab SL UD PRN Miralax (Polyethylene Glycol 3350) 17 Gm Powd.pack 1 Packet PO BID Metoprolol Succinate ( Xl ) (Metoprolol Succinate) 25 Mg Tab.er.24h 1 Tab PO DAILY Metolazone 5 Mg Tablet 1.5 Tab PO DAILY Metolazone 2.5 Mg Tablet 2.5 Mg PO PRN DAILY PRN Melatonin 3 Mg Tablet 2 Tab PO QHS Levothyroxine Sodium 125 Mcg Tablet 1 Tab PO DAILY Lantus Solostar (Insulin Glargine,Hum.rec.anlog) 100 Unit/1 Ml Insuln.pen 12 Uni t SQ QHS Acidophilus (Lactobacillus Acidophilus) 1 Each Capsule 1 Each PO DAILY Glucose Gel (Dextrose) 38 Gm Gel..gram. 38 Gm PO PRN PRN Gabapentin (Gabapentin) 100 Mg Capsule 100 Mg PO TID Flonase Allergy Relief (Fluticasone Propionate) 9.9 Ml [place].susp 2 Sprays NS DAILY Fleet Enema (Na Phos,M-B/Na Phos,Di-Ba) 133 Ml Enema 133 Ml RC PRN PRN Ferrous Gluconate 240 Mg Tablet 240 Mg PO DAILY Uloric (Febuxostat) 80 Mg Tablet 1 Tab PO DAILY Cymbalta (Duloxetine Hcl) 60 Mg Capsule.dr 1 Cap PO HS Cymbalta (Duloxetine Hcl) 30 Mg Capsule.dr 1 Cap PO DAILY Vitamin B-12 (Cyanocobalamin (Vitamin B-12)) 1,000 Mcg Tablet 1 Tab PO DAILY Coumadin (Warfarin Sodium) 2 Mg Tablet 1 Tab PO DAILY Vitamin D3 (Cholecalciferol (Vitamin D3)) 5,000 Unit Tablet 1 Tab PO DAILY Buspirone Hcl 5 Mg Tablet 1 Tab PO BID Bisacodyl 10 Mg Supp.rect 10 Mg RC PRN DAILY PRN Tylenol (Acetaminophen) 325 Mg Tablet 2 Tab PO PRN Q6HRS PRN Sertraline Hcl 100 Mg Tablet 100 Mg PO DAILY Aspir 81 (Aspirin) 81 Mg Tablet.dr 1 Tab PO DAILY Vital Signs Vital Signs Date Time Temp Pulse Resp B/P (MAP) Pulse Ox O2 Delivery O2 Flow Rate FiO2 05/29/19 09:00 69 138/56 05/29/19 08:00 Room Air 3.0 05/29/19 07:20 97.3 16 95 97.3 Labs Laboratory Tests Test 05/27/19 12:20 05/27/19 17:03 05/27/19 20:52 05/27/19 21:24 Glucose (Fingerstick) 149 mg/dL (70-99) 120 mg/dL (70-99) 60 mg/dL (70-99) 118 mg/dL (70-99) Test 05/27/19 23:41 05/28/19 00:30 05/28/19 03:50 05/28/19 06:30 Glucose (Fingerstick) 131 mg/dL (70-99) 216 mg/dL (70-99) White Blood Count 11.7 x10^3/uL (4.0-11.0) 10.9 x10^3/uL (4.0-11.0) Red Blood Count 2.58 x10^6/uL (4.30-5.70) 2.64 x10^6/uL (4.30-5.70) Hemoglobin 7.2 g/dL (13.0-17.5) 7.6 g/dL (13.0-17.5) Hematocrit 22.0 % (39.0-53.0) 22.7 % (39.0-53.0) Mean Corpuscular Volume 85 fL (79-100) 86 fL (79-100) Mean Corpuscular Hemoglobin 28 pg (25-35) 29 pg (25-35) Mean Corpuscular Hemoglobin Concent 33 g/dL (31-37) 33 g/dL (31-37) Red Cell Distribution Width 20.2 % (11.5-14.5) 19.7 % (11.5-14.5) Platelet Count 159 x10^3/uL (140-400) 156 x10^3/uL (140-400) Neutrophils (%) (Auto) 79 % (31-73) Lymphocytes (%) (Auto) 8 % (24-48) Monocytes (%) (Auto) 10 % (0-9) Eosinophils (%) (Auto) 2 % (0-3) Basophils (%) (Auto) 1 % (0-3) Neutrophils # (Auto) 8.6 x10^3/uL (1.8-7.7) Lymphocytes # (Auto) 0.9 x10^3/uL (1.0-4.8) Monocytes # (Auto) 1.1 x10^3/uL (0.0-1.1) Eosinophils # (Auto) 0.2 x10^3/uL (0.0-0.7) Basophils # (Auto) 0.1 x10^3/uL (0.0-0.2) Prothrombin Time 18.5 SEC (11.7-14.0) Prothromb Time International Ratio 1.6 (0.8-1.1) Sodium Level 132 mmol/L (136-145) Potassium Level 4.6 mmol/L (3.5-5.1) Chloride Level 96 mmol/L (98-107) Carbon Dioxide Level 27 mmol/L (21-32) Anion Gap 9 (6-14) Blood Urea Nitrogen 108 mg/dL (8-26) Creatinine 2.2 mg/dL (0.7-1.3) Estimated GFR (Cockcroft-Gault) 29.1 Glucose Level 166 mg/dL (70-99) Calcium Level 9.0 mg/dL (8.5-10.1) Test 05/28/19 07:27 05/28/19 11:02 05/28/19 17:15 05/28/19 20:37 Glucose (Fingerstick) 208 mg/dL (70-99) 218 mg/dL (70-99) 220 mg/dL (70-99) 250 mg/dL (70-99) Test 05/29/19 05:15 05/29/19 07:23 05/29/19 11:18 Prothrombin Time 23.8 SEC (11.7-14.0) Prothromb Time International Ratio 2.2 (0.8-1.1) Glucose (Fingerstick) 324 mg/dL (70-99) 363 mg/dL (70-99) Laboratory Tests Test 05/28/19 17:15 05/28/19 20:37 05/29/19 05:15 05/29/19 07:23 Glucose (Fingerstick) 220 mg/dL (70-99) 250 mg/dL (70-99) 324 mg/dL (70-99) Prothrombin Time 23.8 SEC (11.7-14.0) Prothromb Time International Ratio 2.2 (0.8-1.1) Test 05/29/19 11:18 Glucose (Fingerstick) 363 mg/dL (70-99) Allergies Allergies Coded Allergies Type Severity Reaction Last Updated Verified bumetanide Allergy Intermediate 05/17/19 Yes cephalexin Allergy Intermediate 05/16/19 Yes metformin Allergy Intermediate 05/31/18 Yes Disposition/Orders: Other (D/C TO [facility]) SCOTT VASQUEZ MD May 29, 2019 11:36
[2019-05-29] MEDS ORDERED: TORS20TA PO (11:39)
--- NOTE | 2019-05-29 11:41 | SNU/HH DC ---
DISCHARGE ORDERS DISCHARGE INFORMATION: FINAL DIAGNOSIS Problems Medical Problems: (1) Acute kidney injury superimposed on CKD Status: Acute (2) Acute on chronic combined systolic (congestive) and diastolic (congestive) heart failure Status: Acute (3) Acute respiratory failure Status: Acute (4) Acute respiratory failure with hypoxia Status: Acute (5) ABBY (acute kidney injury) Status: Acute (6) CAD (coronary artery disease) Status: Chronic (7) Chronic a-fib Status: Chronic (8) Chronic kidney disease, stage 4 (severe) Status: Acute (9) CKD (chronic kidney disease), stage III Status: Chronic (10) CVA (cerebral vascular accident) Status: Acute (11) DM2 (diabetes mellitus, type 2) Status: Chronic (12) Dyspnea Status: Acute (13) HCAP (healthcare-associated pneumonia) Status: Acute (14) Metabolic encephalopathy Status: Acute (15) Pleural effusion on left Status: Acute (16) Pleural effusion, left Status: Acute (17) Pulmonary edema Status: Acute (18) Sepsis Status: Acute (19) Severe sepsis Status: Acute CONDITION ON DISCHARGE: Guarded CODE STATUS: Code Status: Full MCC: SNF STAY <30 DAYS: Yes HOSPICE: HOSPICE: Yes HOSPICE EVAL & TREAT: Yes LTAC: ADMIT TO LTAC: No POST DISCHARGE ORDERS: ACTIVITY ORDERS: Activity as tolerated WEIGHT BEARING STATUS: Other, see below BATHING ORDERS: Shower-keep dressing dry DIET AFTER DISCHARGE: ADA CHECKS AFTER DISCHARGE: CHECKS AFTER DISCHARGE: Check blood sugar, ac/hs TREATMENT/EQUIPMENT ORDERS: ADAPTIVE EQUIPMENT NEEDED: Bath Bench, Cane Physical Therapy For: Evalulation/Treatment Occupational Therapy For: Evaluation/Treatment Speech Language Pathology For: Evaluation/Treatment DISCHARGE MEDICATIONS: Home Meds Active Scripts Torsemide (DEMADEX) 20 Mg Tablet, 40 MG PO DAILY for CHF for 10 Days, #20 TAB Prov:SCOTT VASQUEZ MD 05/29/19 Reported Medications Trazodone Hcl (TRAZODONE HCL) 100 Mg Tablet, 1 TAB PO QHS for Insomnia, #30 TAB 1 Refill 05/16/19 Carbidopa/Levodopa (SINEMET CR 25-100 TABLET) 1 Each Tablet.er, 1 TAB PO TID for Prophylaxis, TAB 05/16/19 Simethicone (SIMETHICONE) 80 Mg Tab.chew, 80 MG PO PRN Q6HRS PRN for HEARTBURN / GAS, TAB.CHEW 05/16/19 Sennosides/Docusate Sodium (Senna Plus 8.6-50 mg Tablet) 1 Each Tablet, 1 EACH PO BID for Constipation, TAB 05/16/19 Sevelamer Carbonate (RENVELA) 800 Mg Tablet, 3 TAB PO TIDAC for Kidney failure, #810 TAB 3 Refills 05/16/19 Pantoprazole Sodium (PROTONIX ) 40 Mg Tablet.dr, 40 MG PO DAILYAC for Ulcer, TAB 05/16/19 Pravastatin Sodium (PRAVASTATIN SODIUM) 20 Mg Tablet, 1 TAB PO HS for HLD, #30 TAB 5 Refills 05/16/19 Potassium Chloride (KLOR-CON M20) 20 Meq Tab.er.prt, 1 TAB PO PRN DAILY PRN for Weight gain, #90 TAB 1 Refill 05/16/19 Nitroglycerin (NITROGLYCERIN SubLingual) 0.4 Mg Tab.subl, 1 TAB SL UD PRN for Chest pain, #25 TAB 3 Refills 05/16/19 Polyethylene Glycol 3350 (MIRALAX) 17 Gm Powd.pack, 1 PACKET PO BID for Constipation, #30 PACKET 3 Refills 05/16/19 Metoprolol Succinate (METOPROLOL SUCCINATE ( XL )) 25 Mg Tab.er.24h, 1 TAB PO DAILY for CHF, #30 TAB 5 Refills 05/16/19 Metolazone (METOLAZONE) 2.5 Mg Tablet, 2.5 MG PO PRN DAILY PRN for Weight gain/Fluid gain, #30 TAB 0 Refills 05/16/19 Melatonin (MELATONIN) 3 Mg Tablet, 2 TAB PO QHS for Insomnia, #30 TAB 2 Refills 05/16/19 Levothyroxine Sodium (LEVOTHYROXINE SODIUM) 125 Mcg Tablet, 1 TAB PO DAILY for Hypothyroidism, #30 TAB 5 Refills 05/16/19 Lactobacillus Acidophilus (ACIDOPHILUS) 1 Each Capsule, 1 EACH PO DAILY for Arcos pplement, CAP 05/16/19 Gabapentin (GABAPENTIN ) 100 Mg Capsule, 100 MG PO TID for NEUROGENIC PAIN, CAP 05/16/19 Fluticasone Propionate (Flonase Allergy Relief) 9.9 Ml [place].susp, 2 SPRAYS NS DAILY for Allergies, BOTTLE 05/16/19 Na Phos,M-B/Na Phos,Di-Ba (FLEET ENEMA) 133 Ml Enema, 133 ML RC PRN PRN for CONSTIPATION, EACH 05/16/19 Ferrous Gluconate (FERROUS GLUCONATE) 240 Mg Tablet, 240 MG PO DAILY for Supplement, TAB 05/16/19 Febuxostat (ULORIC) 80 Mg Tablet, 1 TAB PO DAILY for Gout, #90 TAB 1 Refill 05/16/19 Duloxetine Hcl (CYMBALTA) 30 Mg Capsule.dr, 1 CAP PO DAILY for Depression, #30 CAP 5 Refills 05/16/19 Cyanocobalamin (Vitamin B-12) (VITAMIN B-12) 1,000 Mcg Tablet, 1 TAB PO DAILY for Supplement, #30 TAB 2 Refills 05/16/19 Cholecalciferol (Vitamin D3) (VITAMIN D3) 5,000 Unit Tablet, 1 TAB PO DAILY for Supplement, #30 TAB 05/16/19 Buspirone Hcl (BUSPIRONE HCL) 5 Mg Tablet, 1 TAB PO BID for Generalized Anxiety, #60 TAB 2 Refills 05/16/19 Bisacodyl (BISACODYL) 10 Mg Supp.rect, 10 MG RC PRN DAILY PRN for CONSTIPATION, SUPP.RECT 0 Refills 05/16/19 Acetaminophen (TYLENOL) 325 Mg Tablet, 2 TAB PO PRN Q6HRS PRN for MILD PAIN 1-3, #30 TAB 05/16/19 Aspirin (ASPIR 81) 81 Mg Tablet.dr, 1 TAB PO DAILY, #90 TAB 3 Refills 03/08/16 Discontinued Reported Medications Tramadol Hcl (TRAMADOL HCL) 50 Mg Tablet, 50 MG PO Q8HRS for Pain, TAB 05/16/19 Torsemide (TORSEMIDE) 20 Mg Tablet, 100 MG PO BID for Edema, TAB 05/16/19 Temazepam (TEMAZEPAM) 15 Mg Capsule, 1 CAP PO QHS for Insomnia, #30 CAP 1 Refill 05/16/19 Potassium Chloride (POTASSIUM CHLORIDE) 20 Meq Tablet.er, 2 TAB PO DAILY for CHF, TAB.SR 05/16/19 Insulin Aspart (NOVOLOG) 100 Unit/1 Ml Cartridge, 8 UNIT SQ TIDBFRMEAL for DM, EACH 05/16/19 Metolazone (METOLAZONE) 5 Mg Tablet, 1.5 TAB PO DAILY for CHF, #30 TAB 0 Refills 05/16/19 Insulin Glargine,Hum.rec.anlog (LANTUS SOLOSTAR) 100 Unit/1 Ml Insuln.pen, 12 UNIT SQ QHS for DM, #15 ML 3 Refills 05/16/19 Dextrose (GLUCOSE GEL) 38 Gm Gel..gram., 38 GM PO PRN PRN for Hypoglycemia, EACH 05/16/19 Duloxetine Hcl (CYMBALTA) 60 Mg Capsule.dr, 1 CAP PO HS for Depression, #90 CAP 3 Refills 05/16/19 Warfarin Sodium (COUMADIN) 2 Mg Tablet, 1 TAB PO DAILY for Anticoagulation, #30 TAB 05/16/19 Sertraline Hcl (SERTRALINE HCL) 100 Mg Tablet, 100 MG PO DAILY for ANTI- DEPRESSANT, TAB 0 Refills 03/08/16 Discontinued Scripts Insulin Aspart (NOVOLOG FLEXPEN) 300 Units/3 Ml Insuln.pen, 8 UNITS SQ TIDWMEALS, #30 Prov:MUNDO ONEIL MD 06/19/15 SCOTT VASQUEZ MD May 29, 2019 11:41
--- NOTE | 2019-05-29 14:00 | NUR ---
Pt was transported from our facility via [facility] to [facility] via ambulance bed. Central line was DC today. Laid flat for 1 hour. Report given to Marilu at [facility].
--- NOTE | 2019-05-29 14:16 | NUR ---
Pharmacy Warfarin Dosing Note S: Pharmacy consulted to assist with anticoagulation therapy started O: CORAZON BLANCAS is a 78 year old M with Atrial Fibrillation LABS: Last INR: 2.2 Last HGB: 7.6 Last HCT: 22.7 Last PLT: 156 Last dose of 7.5 mg given on 05/28/19 at 1841 Vitamin K given: N Ongoing Drug Interactions: ASA, Zosyn A:INR of 2.2 is within desired range. Target range for this patient is: 2 -3 P: Warfarin dose: 6 mg Today at 1600 Bridge Therapy: None Next INR due IN AM Pharmacy anticoagulation service will continue to follow. DAIJA BARRIOS [facility], 05/29/19 [id number]
--- NOTE | 2019-05-29 15:00 | PDOC ---
PROGRESS NOTES Assessment Assessment Metabolic encephalopathy. Recent 2 cm right cerebellar infarct. Sepsis. Hypotension. CAD. CHF. HTN. HLD. CKD. Bilateral BKA. Obesity. Cognitive impairment. RECOMMENDATIONS/PLAN: He has been treated with Coumadin. ASA 81 mg daily. Lipitor HS. Treat medical diseases. Repeat HCT due to condition worse. OT/PT. Rehab. Past Medical History Cardiovascular: AFIB (/flutter), CAD, CHF, HTN, Hyperlipidemia GI: Constipation Rheumatologic: Gout Renal/: Chronic renal failure (IV), Benign prostatic enlarg. Endocrine: Diabetes Dermatology: Basal cell Past Surgical History Pacemaker (/defibrillator), CABG, Cataract Removal, Hernia Repair (ventral), Tonsillectomy, Other (cardiac cath, bilateral BKA, right foot hammertoe) Family History No pertinent hx Social History Single, [facility]dc resident, does not use alcohol or tobacco Allergies Coded Allergies: bumetanide (Verified Allergy, Intermediate, 05/31/18) cephalexin (Verified Allergy, Intermediate, 05/16/19) HAS TOLERATED MERREM AND ZOSYN metformin (Verified Allergy, Intermediate, 05/31/18) ROS Negative for fever, chills, weight loss, shortness of breath, chest pain, indigestion, hematochezia, melena, and dysuria. Full 14-point review of systems is negative. MEDICATIONS: Refer to MAR PHYSICAL EXAMINATION: General appearance in subacute distress. HEENT: Normocephalic and nontraumatic. Eyes, nose, ears, and throat are unremarkable. Hearing decrease. Neck is supple. No lymphadenopathy. No Crepitus. Cardiovascular: S1, S2, seemed regular rate and rhythm. Pulmonary: Decreased to auscultation bilaterally. Abdomen: Bowel sounds are positive. Abdomen is soft, nontender, and nondistended. Extremities: No rash, lesions, or edema. No restriction of range of motion NEUROLOGICAL EXAMINATION: Drowsiness. Able to follow a few commands. Not oriented to time, place and person. PERRL. EOMI. CN: no focal findings. Muscle tone: within normal. Muscle strength: 4- UE. DTR: 1 Plantar reflex: Neutral response bilaterally Gait: not able to walk. BKA. Sensory exam: no abnormal findings. No cerebellar signs elicited. F-T-N test fine. Objective Objective Vital Signs Date Time Temp Pulse Resp B/P (MAP) Pulse Ox O2 Delivery O2 Flow Rate FiO2 05/29/19 11:02 97.1 71 20 127/42 (70) 96 Room Air 97.1 05/29/19 08:00 3.0 Intake and Output 05/29/19 07:00 Intake Total 720 ml Output Total 950 ml Balance -230 ml Intake Oral 720 ml Output Urine Total 950 ml Vitals Signs Vitals VS - Last 72 Hours, by Label Date Time Temp Pulse Resp B/P (MAP) Pulse Ox O2 Delivery O2 Flow Rate FiO2 05/29/19 11:02 97.1 71 20 127/42 (70) 96 Room Air 97.1 05/29/19 09:00 69 138/56 05/29/19 08:00 Room Air 3.0 05/29/19 07:20 97.3 69 16 138/56 (83) 95 Room Air 97.3 05/29/19 03:44 98.1 70 16 133/59 (83) 92 Room Air 98.1 05/28/19 23:26 98.1 70 16 126/55 (78) 94 Room Air 98.1 05/28/19 20:00 Room Air 05/28/19 19:52 98.2 69 16 131/52 (78) 94 Room Air 98.2 05/28/19 15:44 97.4 72 18 122/58 (79) 96 Room Air 97.4 05/28/19 11:39 97.9 76 18 128/54 (78) 94 Room Air 97.9 05/28/19 09:00 72 122/58 05/28/19 08:00 Room Air 05/28/19 07:57 97.4 70 20 120/48 (72) 92 Room Air 97.4 Laboratory Laboratory Laboratory Tests Test 05/28/19 17:15 05/28/19 20:37 05/29/19 05:15 05/29/19 07:23 Glucose (Fingerstick) 220 mg/dL (70-99) 250 mg/dL (70-99) 324 mg/dL (70-99) Prothrombin Time 23.8 SEC (11.7-14.0) Prothromb Time International Ratio 2.2 (0.8-1.1) Test 05/29/19 11:18 Glucose (Fingerstick) 363 mg/dL (70-99) Microbiology 05/16/19 Blood Culture - Final, Complete NO GROWTH AFTER 5 DAYS Medication Medications Current Medications Influenza Virus Vaccine Quadrival (Afluria Quad 2018- (3yr Up) Syringe) 0.5 ml ONCE ONCE VAX IM Last administered on 05/29/19at 09:30; Start 05/29/19 at 09:30; Stop 05/29/19 at 09:31; Status DC Warfarin Sodium (Coumadin) 6 mg 1X WARF ONCE PO ; Start 05/29/19 at 16:00; Stop 05/29/19 at 16:01 Warfarin Sodium (Coumadin) 7.5 mg 1X WARF ONCE PO Last administered on 05/28/19at 18:41; Start 05/28/19 at 16:00; Stop 05/28/19 at 16:01; Status DC Comment Review of Relevant I have reviewed the following items nestor (where applicable) has been applied. LUCA MCKEON MD May 29, 2019 15:00
[2019-05-29] MEDS ORDERED: WARFARIN 3 MG TABLET. PO ONE (16:00)
--- NOTE | 2019-05-29 16:10 | PDOC2 ---
PALLIATIVE CARE Palliative Care Note Palliative Care Patient seen at 0930. Remains alert today. Plan discharge back to [facility] today. Message left with Socorro that patient was being discharged. BLAS SWEENEY May 29, 2019 16:10
== END 2019-05-29 13:45 | disposition home or self-care (01) | DRG 871 ==
LOC: ER 22:49 → 1 WEST ICU 05-16 01:00 → 6 SOUTH 05-18 19:25
PROVIDERS: ADMIT Internal Medicine; ATTEND Internal Medicine
PROC: 02HV33Z Insertion of Infusion Device into Superior Vena Cava, Percutaneous Approach (ICD-10-PCS; 2019-05-16)
PROC: 30233N1 Transfusion of Nonautologous Red Blood Cells into Peripheral Vein, Percutaneous Approach (ICD-10-PCS; principal; 2019-05-27)
DX: A41.9 Sepsis, unspecified organism (principal); G93.41 Metabolic encephalopathy; I50.43 Acute on chronic combined systolic (congestive) and diastolic (congestive) heart failure; J96.01 Acute respiratory failure with hypoxia; E43 Unspecified severe protein-calorie malnutrition; I63.9 Cerebral infarction, unspecified; J18.9 Pneumonia, unspecified organism; N17.0 Acute kidney failure with tubular necrosis; E87.2 Acidosis; I42.9 Cardiomyopathy, unspecified; L03.90 Cellulitis, unspecified; I13.0 Hypertensive heart and chronic kidney disease with heart failure and stage 1 through stage 4 chronic kidney disease, or unspecified chronic kidney disease; N18.4 Chronic kidney disease, stage 4 (severe); D63.8 Anemia in other chronic diseases classified elsewhere; E03.9 Hypothyroidism, unspecified; E11.22 Type 2 diabetes mellitus with diabetic chronic kidney disease; E11.51 Type 2 diabetes mellitus with diabetic peripheral angiopathy without gangrene; E11.69 Type 2 diabetes mellitus with other specified complication; M19.90 Unspecified osteoarthritis, unspecified site; F32.9 Major depressive disorder, single episode, unspecified; E66.9 Obesity, unspecified; E78.00 Pure hypercholesterolemia, unspecified; E78.5 Hyperlipidemia, unspecified; F03.90 Unspecified dementia, unspecified severity, without behavioral disturbance, psychotic disturbance, mood disturbance, and anxiety; I25.10 Atherosclerotic heart disease of native coronary artery without angina pectoris; J32.0 Chronic maxillary sinusitis; K80.20 Calculus of gallbladder without cholecystitis without obstruction; M10.9 Gout, unspecified; R13.12 Dysphagia, oropharyngeal phase; R65.20 Severe sepsis without septic shock; Y95 Nosocomial condition; Z66 Do not resuscitate; Z79.01 Long term (current) use of anticoagulants; Z79.82 Long term (current) use of aspirin; Z99.3 Dependence on wheelchair; Z95.1 Presence of aortocoronary bypass graft; Z89.512 Acquired absence of left leg below knee; Z89.511 Acquired absence of right leg below knee; Z88.1 Allergy status to other antibiotic agents; Z86.73 Personal history of transient ischemic attack (TIA), and cerebral infarction without residual deficits; Z85.828 Personal history of other malignant neoplasm of skin; Z88.8 Allergy status to other drugs, medicaments and biological substances; Z83.3 Family history of diabetes mellitus; Z82.49 Family history of ischemic heart disease and other diseases of the circulatory system
CPT/HCPCS: 36415; 36556; 36600; 51702; 70450; 71045; 71250; 74022; 76770; 80048; 80053; 80069; 80076; 81001; 82140; 82805; 82962; 83605; 83735; 84100; 84145; 85007; 85025; 85027; 85610; 85730; 86850; 86900; 86901; 86920; 87040; 87641; 90471; 90686; 93005; 93306; 93880; 96361; 96365; 96368; J1815; J1940; J1956; J2020; J2405; J2543; J3370; J7030; J7040; J7042; P9016; P9041; P9046; 92526; 92610; 97110; 97535; 99291-25; G0378